=== PATIENT | male | born 1950 | race Caucasian/White ===

== ENCOUNTER → 2016-04-01 | Outpatient (CLI) | payer MEDICARE, OTHER ==
[~2016-04-01] MED LIST: ACHD5005 PO; ALBU5SOL10 IH; AMLO-320 PO; AMLO10TA82 PO; ASP81CT PO; ASPI-586 PO; BACL10TA PO; CA C1TAB26 PO; CHOL100011 PO; CHOL10003 PO; CYAN1TAB26 PO; CYAN500T44 PO; DICL75TA2 PO; FLUT16SP22 NSEACH; FLUT1DIS26 IH; FLUT1DIS27 IH; FLUT1DIS28 IH; FLUT1DIS3 IH; GABA-486 PO; HCT25T PO; HYDR-3812 PO; HYDR50TA3 PO; IPRA3AMP11 INH; LEVO200T6 PO; LEVO50TA6 PO; LEVO750T6 PO; LEVOTHY; LEVOTHYROXINE PO; LORA10TA7 PO; LVT.05T PO; LVT.1T PO; Levothyroxine PO; MELO15TA39 PO; NF-FLON16G; OMEG1CAP51 PO; OMEP20CA12 PO; OMG1KC PO; OXYC-197 PO; PEG4000S9 PO; PNT40TEC PO; PRM25T PO; QUIN20TA15 PO; QUIN20TA27 PO; RABE20TA PO; RANI150T90 PO; ROPI0.5T2 PO; RT-ALBUINH IH; TRAM50TA2 PO; levothyroxine
--- NOTE | 2016-04-02 08:39 | ECHOCARDIOGRAPHY REPORT ---
PROCEDURE PHYSICIAN: ALMA BLANKENSHIP DATE OF PROCEDURE: 04/01/2016 TWO DIMENSIONAL ECHOCARDIOGRAM REPORT PRIMARY PHYSICIAN: OTHER PHYSICIAN: REFERRING PHYSICIAN: Dr. Johanna Handy ORDERING PHYSICIAN: INDICATION FOR THE PROCEDURE: Chest pain. MEASUREMENTS DERIVED VALUES LV DIAMETER (LAX) NORMALS NORMALS Diastolic 3.8 (3.6-5.2) Eject. Fract. 60% (60%+/-6%) Systolic (2.3-3.9) Diastolic Vol. % Shortening (0.22-0.42) Systolic Vol. Aortic Root IVS THICKNESS Diastolic 0.9 (0.6-1.1) LVPW THICKNESS Diastolic 1.1 (0.6-1.1) LA DIAMETER Systolic 3.8 (2.1-3.7) FINDINGS: 1. Technically difficult study. 2. The left ventricle is normal in size, endocardium was not well visualized in all segments. Systolic function appeared to be normal. Estimated ejection fraction 60%. Cannot comment on segmental wall motion. 3. The left atrium is normal in size. No clot or thrombus were seen within the left atrium. 4. The right atrium and right ventricle are normal in size. No clot or thrombus were seen within the right side. 5. Mitral valve is normal in morphology with mild mitral regurgitation noted by color Doppler flow. No mitral valve prolapse. No mitral valve stenosis. 6. Aortic valve is trileaflet with normal opening and closing pattern. No significant aortic stenosis or regurgitation was seen. 7. Tricuspid valve is normal in morphology with mild tricuspid regurgitation noted by color Doppler flow. Doppler across the tricuspid valve estimated pulmonary artery pressure of 13+ right atrial pressure. 8. Pulmonic valve is functioning normally. 9. No pericardial effusion. IN CONCLUSION: 1. Normal left ventricular size and systolic function. Endocardium was not well visualized in all segments. Estimated ejection fraction 60%. 2. Mild mitral and tricuspid regurgitation. 3. Estimated pulmonary artery pressure of 20 mmHg. Job ID: [id number] Dictated Date: 04/01/2016 15:54:24 Heat Set Operator Date: 04/02/2016 08:35:50 / thao
== END ==
LOC: CARD 12:28
PROVIDERS: ATTEND Internal Medicine Cardiovascular Disease
DX: R07.9 Chest pain, unspecified (principal); I51.9 Heart disease, unspecified; R06.02 Shortness of breath; G47.33 Obstructive sleep apnea (adult) (pediatric)
CPT/HCPCS: 93306

== ENCOUNTER → 2016-04-13 | Outpatient (CLI) | payer MEDICARE, OTHER ==
[~2016-04-13] VITALS: Ht 180.3 cm; Wt 144.7 kg
[~2016-04-13] MED LIST changes: +CATHETER FLUSH 10 ML SYR IV PRN; +REGADENOSON 0.4 MG/5 ML SYR (LEXISCAN) IV ONE
[2016-04-13 09:14] VITALS: BP 171/93
--- NOTE | 2016-04-13 11:34 | STRESS TEST ---
PROCEDURE PHYSICIAN: ALMA BLANKENSHIP LEXISCAN MYOVIEW STRESS TEST REPORT: DATE OF PROCEDURE: 04/13/2016 REFERRING PHYSICIAN: Dr. Johanna Handy, [facility]. INDICATION: Chest pain. Baseline heart rate is 64, baseline blood pressure: 171/93. Baseline EKG: Sinus rhythm with incomplete right bundle branch block. SUMMARY: The patient was injected with 10.47 mCi of technetium 99 Myoview and the resting images were obtained. Then the patient received 0.4 mg followed by 30.1 mCi of technetium 99 Myoview. Throughout the test, there were no EKG changes. The resting and stress images were reviewed and compared in the short axis, horizontal long axis, and vertical long axis views. Review of the images showed significant extracardiac attenuation due to the body habitus and the fact that the patient was unable to lift his left arm. Overall, there is decreased uptake involving the mid to apical anterior wall, true apex and whole inferior wall with mild reversibility involving mainly the mid to apical anterior wall and anterolateral wall. SSS is 12, SDS 6. TID value 1.28. On the gated images, the left ventricle appeared to be normal size with normal contractility. Calculated ejection fraction 62%. CONCLUSION: 1. The patient tolerated Lexiscan well. 2. Diaphragmatic attenuation and extracardiac attenuation affecting the quality of the images due to the body habitus and the fact that the patient was unable to lift his left arm. 3. Questionable ischemia involving the mid to apical anterior wall, anterolateral wall. Fixed defect at the inferior wall, probably due to the extra cardiac attenuation. 4. Transient ischemic dilatation with TID value 1.28. 5. Normal left ventricular size with normal contractility. Calculated ejection fraction 62%. Job ID: [id number] Dictated Date: 04/13/2016 11:02:00 Utility Worker [place] Date: 04/13/2016 11:28:49 / elida
== END ==
LOC: CARD 07:40
PROVIDERS: ATTEND Internal Medicine Cardiovascular Disease
DX: I51.9 Heart disease, unspecified (principal); R07.9 Chest pain, unspecified; G47.33 Obstructive sleep apnea (adult) (pediatric); M19.90 Unspecified osteoarthritis, unspecified site; R06.02 Shortness of breath; M54.9 Dorsalgia, unspecified
CPT/HCPCS: 78452; 93017

== ENCOUNTER 2016-04-22 06:57 | Day surgery (SDC) | payer MEDICARE, OTHER ==
[~2016-04-22] VITALS: Ht 180.3 cm; Wt 144.7 kg
[2016-04-22] VITALS (11 sets, daily range): BP systolic 112–155; BP diastolic 56–102
[~2016-04-22 06:57] MED LIST changes: -ASPI-586 PO; -BACL10TA PO; -CATHETER FLUSH 10 ML SYR IV PRN; -CHOL10003 PO; -HYDR-3812 PO; -LEVO50TA6 PO; -MELO15TA39 PO; -OMG1KC PO; -OXYC-197 PO; -REGADENOSON 0.4 MG/5 ML SYR (LEXISCAN) IV ONE; -ROPI0.5T2 PO
[2016-04-22] MEDS ORDERED: HEParin (CATH LAB) 2,000 ML IV ONE (07:06)
[2016-04-22] MEDS ORDERED: LIDOCAINE 1% INJ 20 ML (XYLOCAINE) VIAL ONE (07:06)
[2016-04-22] MEDS ORDERED: NS IV 1000 ML 1,000 ML ONE (07:06)
[2016-04-22] MEDS ORDERED: NS IV 1000 ML 1,000 ML IV SCH ×2 (07:30→08:35)
[2016-04-22 07:36] LABS: BILIRUBIN,URINE NEGATIVE (NEGATIVE); KETONES,URINE NEGATIVE (NEGATIVE); LEUKOCYTE ESTERASE ,URINE NEGATIVE (NEGATIVE); NITRITE,URINE NEGATIVE (NEGATIVE); PH,URINE 8 (5-9); PROTEIN,URINE 2+ (NEGATIVE); UROBILINOGEN,URINE NORMAL (NORMAL)
[2016-04-22 07:36] LABS: MEAN PLATELET VOLUME 10.2 FL (7.4-10.4); RED BLOOD COUNT 4.17 10^6/uL (4.35-5.85); RED CELL DISTRIBUTION WIDTH 12.9 % (10.0-14.5)
[2016-04-22 07:45] LABS: PROTHROMBIN TIME PATIENT 13.1 SEC (12.2-14.7)
[2016-04-22] MEDS ORDERED: BACL10TA PO (07:46)
[2016-04-22] MEDS ORDERED: MELO15TA39 PO (07:46)
[2016-04-22] MEDS ORDERED: ROPI0.5T2 PO (07:46)
[2016-04-22 07:56] LABS: ALANINE AMINOTRANSFERASE 22 U/L (0-55); ALBUMIN 4.2 G/DL (3.2-4.5); ANION GAP 10 MMOL/L (5-14); ASPARTATE AMINO TRANSFERASE 21 U/L (5-34); BILIRUBIN,TOTAL 0.4 MG/DL (0.1-1.0); BLOOD UREA NITROGEN 29 MG/DL (7-18); BUN/CREATININE RATIO 28; CALCIUM 9.5 MG/DL (8.5-10.1); CARBON DIOXIDE 28 MMOL/L (21-32); CHLORIDE 103 MMOL/L (98-107); CHOLESTEROL 155 MG/DL (< 200); CREATININE SERUM 1.02 MG/DL (0.60-1.30); DIRECT LDL 93 MG/DL (1-129); GFR ESTIMATED > 60; GLUCOSE 100 MG/DL (70-105); POTASSIUM 3.9 MMOL/L (3.6-5.0); SODIUM 141 MMOL/L (135-145); TOTAL PROTEIN 7.4 G/DL (6.4-8.2); TRIGLYCERIDES 89 MG/DL (<150); VLDL CHOLESTEROL 18 MG/DL (5-40)
[2016-04-22 08:01] LABS: SQUAMOUS EPITHELIAL CELL,UR 0-2 /HPF
[2016-04-22] MEDS ORDERED: fentaNYL INJECTION 100 MCG/2 ML AMP ONE (08:02)
[2016-04-22] MEDS ORDERED: MIDAZOLAM 5 MG/5 ML (VERSED) VIAL ONE (08:02)
--- NOTE | 2016-04-22 08:13 | Cardiac Procedure Note-CS/ASA ---
Pre-Procedure Note Pre-Op Procedure Note H&P Reviewed The H&P was reviewed, patient examined and no changes noted. Date H&P Reviewed: Apr 22, 2016 Time H&P Reviewed: 08:13 Conscious Sedation Pre-Proced Time Reviewed: 08:13 ASA Class: 3 Airway Mallampati Classification: (chitimacha appropriate class) I. II. III, IV Lungs Heart ASA score ASA 1: a normal healthy patient ASA 2: a patient with a mild systemic disease (mid diabetes, controlled hypertension, obesity x ASA 3: a patient with a severe systemic disease that limits activity (angina , COPD, prior Myocardial infarction) ASA 4: a patient with an incapacitating disease that is a constant threat to life (CHF, renal failure) ASA 5: a moribund patient not expected to survive 24 hrs. (ruptured aneurysm) ASA 6: a declared brain patient whose organs are being harvested. For emergent operations, add the letter E after the classification Grade 3 Sedation Plan: Analgesia, Amnesia, Plan communicated to team members, Discussed options with patient/fam, Discussed risks with patient/fam Note The patient is an appropriate candidate to undergo the planned procedure, sedation, and anesthesia. The patient immediately re-assessed prior to indication. ALMA BLANKENSHIP MD Apr 22, 2016 08:13
--- NOTE | 2016-04-22 08:16 | Diagnostic Imaging Report ---
Portable upright radiograph of the chest. INDICATION: Hypertension. Abnormal stress test. Shortness of breath. FINDINGS: There is overall underpenetration on this exam. Minimal opacity in the left lung base is probably related to atelectasis. The heart size is at the upper limits of normal. No effusion or pneumothorax. The mediastinum and nidhi appear unremarkable. IMPRESSION: Suggestion of minimal left basilar atelectasis. Underpenetrated radiograph. Dictated by: Dictated on workstation # [id number]
--- NOTE | 2016-04-22 08:38 | Discharge Inst-Post CATH ---
Discharge Inst-CATH Post Cardiac Cath D/C Inst Follow Up/Plan Appointment with Dr Mccollum's office in 2-4 weeks CARDIAC CATH DISCHARGE INSTRUCTIONS *Hold Metformin for 48 hours post heart cath. ACTIVITY * Go Home directly and rest. * Limit activity of the leg (or wrist if it was used) for 7 days including aerobics, swimming, jogging, bicycling, etc. * Restrict stair-climbing for 7 days if possible, if not, climb up with your non -cath leg, then bring together on the same step. * Avoid lifting, pushing, pulling or excessive movement of the affected extremity for 7 days. * Customary sexual activity may be resumed after 2 days-use caution not to use a position that strains or causes pain to the affected extremity. * No driving for 24 hours. * NO SMOKING. * Avoid straining for bowel movements for 7 days. * Gentle walking on level ground is allowed. * Returning to work will depend on the type of procedure and the results. Your doctor will discuss this with you. CALL YOUR DOCTOR FOR ANY OF THE FOLLOWING: *If bleeding from the puncture site occurs- Apply gentle pressure to site with clean cloth and call your doctor or EMS. * If a knot or lump forms under the skin, increases in size, or causes pain. * If bruising appears to be worsening or moving further down your leg instead of disappearing. * Temperature above 101 F. CARE OF YOUR GROIN INCISION; * Bruising or purple discoloration of the skin near the puncture site is common. * You may shower only, no bathtub bathing for 5 days. Be careful to avoid slipping as your leg may feel stiff. * If a closure device was used on your femoral artery, please see the attached guide regarding care of the device and your leg. * REMOVE the dressing from your groin the next day after your procedure in the shower. CARE OF YOUR WRIST INCISION; * Bruising or purple discoloration of the skin near the puncture site is common. * You may shower. * DO NOT submerge wrist. * Remove dressing in 24 hours. ALMA MCCOLLUM MD Apr 22, 2016 08:38
[2016-04-22] MEDS ORDERED: PATIENT MAY USE OWN MEDS, ALL PO SCH (08:45)
[2016-04-22] MEDS ORDERED: oxyCODONE/APAP 5/325MG (PERCOCET 5) TABLET PO ONE (09:45)
--- NOTE | 2016-04-22 14:52 | DISCHARGE SUMMARY ---
PROCEDURE PHYSICIAN: ALMA BLANKENSHIP DATE OF PROCEDURE: 04/22/2016 REFERRING PHYSICIAN: Dr. Johanna Handy, [facility] Brief history: Mr. Desir is a 65-year-old gentleman with a history of hypertension, hyperlipidemia. He had an abnormal stress test, scheduled for left heart catheterization. PROCEDURE NOTE: After explaining the procedure to the patient, all pros and cons were explained. All questions were answered. The patient signed a consent, then he was placed on the cardiac catheterization laboratory. The right groin was prepped in a sterile fashion. Local anesthesia applied to the right groin. 6-Guamanian sheath was placed in the right femoral artery. Combination of right and left Nichole catheter were used to access the right and left coronary system. Multiple views were obtained. Nichole right catheter was prolapsed into the left ventricular cavity. Pressure was measured. Pullback LV to aorta was done. At the end of the procedure, sheath was removed. Mynx device deployed. Hemostasis achieved. FINDINGS: HEMODYNAMICS: LV pressure 130/13, end-diastolic pressure of 13, aortic pressure 135/72, mean of 78. No significant gradient across the aortic valve. ANATOMY: 1. Left main coronary artery is bifurcating to left anterior descending and left circumflex artery with no obstructive disease. 2. The left anterior descending artery is moderate in size. 40 to 50% stenosis in the proximal LAD, nonobstructive disease. 3. Left circumflex artery has mild ectasia with no obstructive disease. 4. Right coronary artery has mild ectasia, small vessel disease, no obstructive disease. 5. No left ventriculogram was done. CONCLUSION: 1. 40 to 50% proximal LAD stenosis with mild ectasia in the circumflex and right coronary artery, nonobstructive disease, small vessel disease. 2. Normal left ventricular end diastolic pressure. DISCUSSION AND RECOMMENDATION: Mr. Desir' abnormal stress test is probably due to extracardiac attenuation medical therapy is recommended. No intervention is needed. FINAL DIAGNOSIS: 1. Chest pain, nonspecific etiology. 2. Coronary artery disease. 3. Hypertension. 4. Hyperlipidemia Job ID: [id number] Dictated Date: 04/22/2016 08:41:54 Plant Security Guard Date: 04/22/2016 14:50:46/elida
[2016-06-10] MEDS ORDERED: OXYC-197 PO ×2 (07:31→10:11)
== END 2016-04-22 13:20 | disposition home or self-care (01) ==
LOC: CATH 06:57 → SURG 08:58 → CATH 13:20
PROVIDERS: ATTEND Internal Medicine Cardiovascular Disease
DX: R94.39 Abnormal result of other cardiovascular function study (principal); R07.89 Other chest pain; I25.10 Atherosclerotic heart disease of native coronary artery without angina pectoris; I10 Essential (primary) hypertension; E78.5 Hyperlipidemia, unspecified; G47.33 Obstructive sleep apnea (adult) (pediatric); J45.909 Unspecified asthma, uncomplicated; Z87.891 Personal history of nicotine dependence; Z79.899 Other long term (current) drug therapy
CPT/HCPCS: 36415; 71010; 80053; 80061; 81000; 85027; 85610; 85730; 87081; 93005; 93458

== ENCOUNTER → 2016-04-28 | Outpatient (CLI) | payer MEDICARE, OTHER ==
[~2016-04-28] MED LIST changes: +ASPI-586 PO; +BACL10TA PO; +CHOL10003 PO; +HYDR-3812 PO; +LEVO50TA6 PO; +MELO15TA39 PO; +OMG1KC PO; +OXYC-197 PO; +ROPI0.5T2 PO
--- NOTE | 2016-04-28 16:25 | Diagnostic Imaging Report ---
PROCEDURE: MRI left upper extremity without contrast. TECHNIQUE: Multiplanar, multisequence non contrast-enhanced MRI of the left upper extremity was accomplished. INDICATION: Left shoulder pain. FINDINGS: Please note that due to the large patient body habitus, the dedicated shoulder coil was not fitting and alternate larger coil was used which would decrease in the resolution of this exam. There is no os acromiale or Hill-Sachs deformity. There is acromioclavicular joint hypertrophy with inferior osteophyte seen that has an impression upon the myotendinous junction of the supraspinatus. The rotator cuff is not well seen with suggestion of bursal-sided partial tear, and there is suggestion of high-grade tear along the insertion of the infraspinatus. There is fluid minimally distending the subacromial-subdeltoid bursa. The labrum is not well seen. The long head biceps tendon is not well seen with details to evaluate the tendon signal itself. The tendon, however, appears to be within the groove. The subscapularis tendon appears grossly unremarkable. The glenohumeral joint demonstrates a small effusion. There is mild distention of the subcoracoid bursa. The muscle bulk around the shoulder is normal. IMPRESSION: 1. Limited study with decreased resolution of imaging due to large patient body habitus. 2. Suggestion of partial tears in the supraspinatus and infraspinatus tendons with associated small amount of fluid in the subacromial-subdeltoid bursa. No definitive full-thickness retracted tear. 3. AC joint osteoarthritis with prominent inferior osteophytes. 4. Mild subcoracoid bursitis. Dictated by: Dictated on workstation # [id number]
== END ==
LOC: RAD 15:14
PROVIDERS: ATTEND Nurse Practitioner Family
DX: M19.012 Primary osteoarthritis, left shoulder (principal); M75.52 Bursitis of left shoulder
CPT/HCPCS: 73221

== ENCOUNTER 2016-05-21 10:10 | Outpatient (CLI) | payer MEDICARE ==
[~2016-05-21] VITALS: Ht 180.3 cm; Wt 143.1 kg
[~2016-05-21 10:10] MED LIST changes: -ASPI-586 PO; -CHOL10003 PO; -HYDR-3812 PO; -LEVO50TA6 PO; -OMG1KC PO; -OXYC-197 PO
[2016-05-21 10:17] VITALS: BP 148/87
[2016-05-21] MEDS ORDERED: ASPI-586 PO (10:26)
[2016-05-21] MEDS ORDERED: OMG1KC PO (10:26)
[2016-05-21] MEDS ORDERED: LEVO50TA6 PO (10:26)
[2016-05-21] MEDS ORDERED: HYDR-3812 PO (10:26)
[2016-05-21] MEDS ORDERED: CHOL10003 PO (10:26)
[2016-06-10] MEDS ORDERED: OXYC-197 PO ×2 (07:31→10:11)
== END 2016-05-21 10:30 | disposition home or self-care (01) ==
LOC: PREOP 10:10
PROVIDERS: ATTEND Orthopaedic Surgery
DX: Z01.818 Encounter for other preprocedural examination (principal); Z11.2 Encounter for screening for other bacterial diseases; M75.102 Unspecified rotator cuff tear or rupture of left shoulder, not specified as traumatic
CPT/HCPCS: 87081

== ENCOUNTER 2016-06-10 06:03 | Day surgery (SDC) | payer MEDICARE ==
--- NOTE | 2016-06-02 13:49 | HISTORY AND PHYSICAL ---
DICTATING PHYSICIAN: Dr. Ruth DATE OF ADMISSION: 06/10/2016 Outpatient surgery for left shoulder arthroscopy with rotator cuff repair. HISTORY: The patient is a 65-year-old, [id number] gentleman with complaints of progressively worsening left shoulder plain. He underwent an MRI which reveals full thickness infraspinatus tear. He reports progressively worsening pain. He reports pain with overhead activities. He denies paresthesias. He denies any specific injuries but reports that his pain has been progressive. He reports pain when he lifts above his shoulder level. Due to functional impairment, the patient has elected to proceed with surgical intervention. REVIEW OF SYSTEMS: No chest pain, no shortness of breath. No dysuria. PAST MEDICAL HISTORY: 1. Sleep apnea. 2. Hypertension. 3. Reflux. 4. Asthma. 5. Osteoarthritis. 6. Peptic ulcer disease. 7. Hiatal hernia. 8. Prediabetes. 9. Fatty liver. 10. Neuropathy. 11. Back pain. 12. RLS. 13. Hypothyroidism. PAST SURGICAL HISTORY: 1. Cholecystectomy. 2. Right knee arthroscopy. FAMILY HISTORY: Significant for cardiovascular disease, hypertension and diabetes. PRIMARY CARE PROVIDER: [facility]. MEDICATIONS: 1. Diclofenac. 2. Norvasc. 3. Levothyroxine. 4. Hydrochlorothiazide. 5. Omeprazole. 6. Quinapril. 7. Advair. 8. Fluticasone 9. Gabapentin. 10. Fish oil. 11. Vitamin D3. 12. Aspirin. 13. Ventolin. 14. MiraLAX. 15. Metoclopramide. 16. Requip. ALLERGIES: No known drug allergies. SOCIAL HISTORY: The patient is a former smoker. He drinks alcohol socially. PHYSICAL EXAMINATION: The patient is well-developed, well-nourished, in no acute distress. HEENT: Normocephalic, atraumatic. Pupils are equal, round, and reactive to light, oropharynx is clear. NECK: Supple. No lymphadenopathy. LUNGS: Clear to auscultation bilaterally. HEART: Regular rate and rhythm. ABDOMEN: Soft, nontender, nondistended. EXTREMITY EXAM: The left shoulder demonstrates no atrophy. No skin lesions are noted. He has negative Spurling's maneuver. Sensation is intact throughout his left upper extremity. He has a positive Neer sign, positive Pradhan sign. He has pain and weakness with resisted abduction and external rotation. He has a negative drop arm. Active forward elevation of 170 degrees, external rotation is 80 degrees and internal rotation 70 degrees. IMPRESSION: Left shoulder rotator cuff tear. PLAN: Left shoulder arthroscopy with rotator cuff repair. The risks, benefits, options, ramifications and recovery have been discussed at length with the patient and he understands and wishes to proceed. Job ID: [id number] Dictated Date: 05/19/2016 09:59:00 Last Sawyer Date: 05/19/2016 11:09:25/kjs <Dictated by TAE RUTH MD> 05/19/16 [id number] <Electronically signed by TAE RUTH MD> 05/26/16 [id number]
[~2016-06-10] VITALS: Ht 180.3 cm; Wt 143.1 kg
[~2016-06-10 06:03] MED LIST changes: +ASPI-586 PO; +CHOL10003 PO; +HYDR-3812 PO; +LEVO50TA6 PO; +OMG1KC PO
[2016-06-10] MEDS ORDERED: NS (IVPB) 50 ML ONE (06:33)
[2016-06-10] MEDS ORDERED: ceFAZolin 1,000 MG (ANCEF) VIAL ONE (06:33)
[2016-06-10 06:46] VITALS: BP 197/113
[2016-06-10] MEDS ORDERED: SEVOFLURANE (ULTANE) 15 ML INHAL SOLN ONE ×5 (06:48→08:31)
[2016-06-10] MEDS ORDERED: ATRACURIUM 50 MG/5 ML (TRACRIUM) IV ONE (06:48)
[2016-06-10] MEDS ORDERED: LIDOCAINE PF 2% 10 ML (XYLOCAINE) AMP ONE (06:48)
[2016-06-10] MEDS ORDERED: DEXAMETHASONE PF 10 MG/ML (DECADRON) VIAL ONE (06:48)
[2016-06-10] MEDS ORDERED: MIDAZOLAM 2 MG/2 ML (VERSED) VIAL ONE (06:48)
[2016-06-10] MEDS ORDERED: proPOfol 200 MG/20 ML (DIPRIVAN) VIAL IV ONE (06:48)
[2016-06-10] MEDS ORDERED: fentaNYL INJECTION 100 MCG/2 ML AMP ONE (06:48)
[2016-06-10] MEDS ORDERED: HURRICAINE EXT TUBE (BENZOCAINE) ONE (06:48)
[2016-06-10] MEDS ORDERED: ROPIVACAINE 5MG/ML 30ML VIAL ONE (06:49)
[2016-06-10] MEDS ORDERED: FAMOTIDINE 20MG/2ML IV (PEPCID) ONE (06:52)
[2016-06-10] MEDS ORDERED: morphine PF (DURAMORPH) 10 MG/10 ML AMP ONE (06:56)
[2016-06-10] MEDS ORDERED: BUPIVACAINE 0.25% 30 ML (SENSORCAINE) VIAL ONE (06:56)
[2016-06-10] MEDS ORDERED: ceFAZolin 1 GM/NS 50 ML IVPB IV ONE ×2 (07:00)
[2016-06-10] MEDS ORDERED: CATHETER FLUSH 10 ML SYR IV PRN (07:00)
[2016-06-10] MEDS: LACTATED RINGERS 1,000 ML IV PRN ×2 (07:00→08:44)
[2016-06-10] MEDS ORDERED: FAMOTIDINE 20MG/2ML IV (PEPCID) IV ONE (07:00)
[2016-06-10] MEDS ORDERED: GLYCOPYRROLATE 0.2 MG/ML (ROBINUL) 2 ML VIAL IV ONE (07:00)
[2016-06-10] MEDS ORDERED: RT-ALBUTEROL SULF 2.5 MG/3 ML PRE-MIX VIAL INH ONE (07:00)
--- NOTE | 2016-06-10 07:26 | Progress Note-Post Operative ---
Post-Operative Progess Note [place] none Pre-Operative Diagnosis left rotator cuff and SLAP tears Post-Operative Diagnosis left rotator cuff tear left shoulder labrla tear left humeral head chondromalacia Post-Op Procedure Note Date of Procedure: Jun 10, 2016 Name of Procedure: left shoulder arthroscopic labral debridement, humeral head chondroplasty, acromioplasty and open rotator cuff repair Anesthesia Type GETA plus interscalene Estimated blood loss (mL): minimal Packing: none Specimen(s) collected none TAE RUTH MD Jun 10, 2016 07:26
--- NOTE | 2016-06-10 07:26 | Progress Note-Pre Operative ---
Pre-Operative Progress Note H&P Reviewed The H&P was reviewed, patient examined and no changes noted. Date H&P Reviewed: Jun 10, 2016 Time H&P Reviewed: 07:11 Pre-Operative Diagnosis: left rotator cuff and SLAP tears TAE RUTH MD Jun 10, 2016 07:25
[2016-06-10] MEDS ORDERED: oxyCODONE/APAP 5/325MG (PERCOCET 5) TABLET PO PRN (07:30)
[2016-06-10] MEDS ORDERED: OXYC-197 PO ×2 (07:31→10:11)
[2016-06-10] MEDS ORDERED: morphine INJ 10 MG/ML 1ML (SYR OR VIAL) IV PRN (09:00)
[2016-06-10] MEDS ORDERED: fentaNYL INJECTION 100 MCG/2 ML AMP IV PRN (09:00)
[2016-06-10] MEDS ORDERED: ONDANSETRON 4 MG/2 ML (SDV) Z0FRAN IV PRN (09:00)
[2016-06-10] MEDS ORDERED: PROMETHAZINE INJ 25 MG/ML (PHENERGAN) AMP IV PRN (09:00)
[2016-06-10] MEDS ORDERED: MEPERIDINE (DEMEROL) INJ 50 MG/ML IV PRN (09:00)
[2016-06-10] MEDS ORDERED: morphine INJ 10 MG/ML 1ML (SYR OR VIAL) ONE (09:12)
[2016-06-10 09:45] VITALS: BP 173/98
[2016-06-10 10:15] VITALS: BP 169/106
--- NOTE | 2016-06-10 10:27 | OPERATIVE REPORT ---
PROCEDURE PHYSICIAN: TAE RUTH DATE OF PROCEDURE: 06/10/2016 PREOPERATIVE DIAGNOSIS: 1. Left shoulder SLAP tear. 2. Left shoulder rotator cuff tear. POSTOPERATIVE DIAGNOSIS: 1. Left shoulder labral tear. 2. 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 3. Left rotator cuff tear. PROCEDURE: 1. Left shoulder arthroscopic labral debridement. 2. Left shoulder arthroscopic chondroplasty of the humeral head. 3. Left shoulder arthroscopic acromioplasty. 4. Left shoulder open rotator cuff repair. SURGEON: Melisa ANESTHESIA: General endotracheal plus interscalene nerve block by Dr. Au ESTIMATED BLOOD LOSS: Minimal. DRAINS: None. COMPLICATIONS: None. POSTOPERATIVE PLAN: Passive range of motion and sling wear for 4 weeks. The patient was transported to the recovery room, awake, in stable condition. STATEMENT OF MEDICAL NECESSITY: The patient is a 65-year-old gentleman with the complaints of left shoulder pain and weakness. He had a positive Neer and positive Pradhan sign, weakness with abduction and external rotation. He underwent an MRI which shows a massive rotator cuff tear with atrophy noted. The patient was counseled that this may be an irreparable tear, but due to functional impairment, the patient elected to proceed with surgical intervention. Examination under anesthesia revealed forward elevation of 170 degrees, external rotation 90 degrees and internal rotation 80 degrees. Arthroscopic findings demonstrated a flap tear of the anterior labrum from the 8 to 10 o'clock position. The humeral head demonstrated grade 2 chondral flap superiorly in a 10 x 10 area. There was a full thickness supraspinatus tear extending into the infraspinatus and subscapularis with retraction to the glenoid. Subacromial space demonstrated moderate bursitis with sloping of anterolateral acromion. PROCEDURE: After risks and benefits of procedure were discussed and questions were answered an informed consent was signed and placed on chart. The operative site was confirmed in the preoperative holding area and initialed by the surgeon. The patient was then transported to the operating room. After adequate levels of general endotracheal anesthetic were obtained, a timeout was called confirming the operative site. Examination under anesthesia was performed with the above findings noted. The left shoulder and upper extremity were prepped and draped in the usual sterile fashion. The shoulder joint was injected with 20 mL of fluid and a standard posterior portal was placed under direct visualization. Anterior middle portal was created in the interval between the glenoid and humeral head. The biceps anchor was absent. The labral flap was debrided with a shaver, back to a stable edge. The humeral head was debrided with a shaver, back to a stable edge. The scope was then redirected in the subacromial space and lateral portal was created. Bursectomy was performed and acromion was planed to a flat type I acromion. The lateral portal was then extended. The deltoid was split in line with its fibers. The deltoid was left attached to the acromion. The posterior aspect of the rotator cuff could be mobilized superiorly but the midportion and anterior portion could not be mobilized. A single corkscrew anchor was placed and a modified Sohail-Thai repair was obtained. This brought the posterior leaf superiorly. The wound was copiously irrigated. The deltoid was repaired in [id number] fashion using number 2 FiberWire in a [id number] interrupted fashion. The wound was further irrigated. 2-0 Vicryl was used to reapproximate subcutaneous tissue. The portal sites closed with 4-0 nylon in subcuticular fashion. The incision was closed with 4-0 nylon in running, alternating horizontal mattress fashion. The shoulder joint was injected with Duramorph. Portal sites were infiltrated with plain Marcaine. A soft dressing and sling were applied and the patient was transported to recovery room, awake, in stable condition. Job ID: [id number] Dictated Date: 06/10/2016 08:55:15 Engineered Wood Designer Date: 06/10/2016 10:17:32 / elida
[2016-06-10 10:45] VITALS: BP 169/106
--- NOTE | 2016-06-10 11:47 | Anesthesia-Peripheral Nerve Bl ---
Procedure Start/Stop Time Date of Procedure: Jun 10, 2016 Start Time: 07:00 Preprocedural Diagnosis: torn rotator cuff Stop Time: 07:15 Postprocedural Diagnosis: same Peripheral Nerve Block Peripheral Nerve Blockade Risk/Benefits/Alternatives discussed, including IV injection leading to complications or seizures, nerve irritation or damage, pneumothorax, total spinal anesthesia, injection, and/or bleeding. Side Confirmed: LEFT Indication: Surgical Anesthesia Specifically requested for management of pain by: Patient Condition Vital Signs Vital Signs Date Time Temp Pulse Resp B/P (MAP) Pulse Ox O2 Delivery O2 Flow Rate FiO2 06/10/16 11:20 06/10/16 10:45 97.1 70 16 92 Room Air 06/10/16 07:19 2.00 Pain Intensity: 6 Patient Condition: Awake Procedure Prepartation: Chlorhexidine Position: Supine Needle (s) Size: 22g 2" Technique: Nerve Stimulation Motor response or parethesia o: good deltoid and biceps response mA: .5 Depth (cm): 2 Sedation Given: Midazolam Dose (mg/mcg): 2 Injectate: ropivacaine Concentration %: 0.5 Volume (ml): 30 Epinephrine used: No Narrative Injection was made incrementally with constant monitoring. Blood Aspirated: No Pain on injection noted: No Normal Resistance on injection: Yes Events Events: None:easy well tolerated Sucess: Complete Patient Conditon Post Peripheral Nerve Block Post Peripheral Nerve Block Vital Signs: Blood Pressure: Systolic Diastolic Heart Rate Blood Pressure Systolic: 169 Blood Pressure Diastolic: 106 Pulse Rate (adult): 70 BELTRAN CORBETT CRNA Jun 10, 2016 11:47
--- OUTSIDE RECORDS SUMMARY | 2016-06-14 04:18 | XMS REPORT ---
Author Author TAMMY COPELAND Organization e[employer] Address Unknown Phone Unavailable Care Team Providers Care Spragger Name Role Phone TAMMY COPELAND CP Unavailable Allergies No Known Allergies Problems Problem Type Condition ICD-9 Code Onset Dates Condition Status Problem Diarrhea 787.91 Active Problem Nausea alone 787.02 Active Problem Unspecified hereditary and idiopathic peripheral neuropathy 356.9 Active Problem Abdominal pain, right upper quadrant 789.01 Active Problem Pain in joint, lower leg 719.46 Active Problem Pain in joint, pelvic region and thigh 719.45 Active Problem Benign neoplasm of skin, site unspecified 216.9 Active Problem Dysmetabolic Syndrome X 277.7 Active Problem Other enthesopathy of ankle and tarsus 726.79 Active Problem Unspecified myalgia and myositis 729.1 Active Problem Sacroiliitis, not elsewhere classified 720.2 Active Problem Acute mucoid otitis media 381.02 Active Problem Sciatica 724.3 Active Problem Unspecified gastritis and gastroduodenitis without mention of hemorrhage 535.50 Active Problem Cellulitis and abscess of unspecified site 682.9 Active Problem Lumbago 724.2 Active Problem Hypertension 401.9 Active Problem Edema 782.3 Active Problem Encounter for long-term (current) use of other medications V58.69 Active Problem Pain in joint, hand 719.44 Active Problem Bilateral leg pain 729.5 Active Problem Acute upper respiratory infections of unspecified site 465.9 Active Problem Heartburn 787.1 Active Problem Other specified headache syndromes 339.89 Active Problem Flatulence, eructation, and gas pain 787.3 Active Problem Abdominal pain, epigastric 789.06 Active Problem Acute bronchitis 466.0 Active Problem PPV23 (PNEUMOVAX) DX V03.82 Active Problem Obstructive sleep apnea (adult) (pediatric) 327.23 Active Problem Chronic airway obstruction, not elsewhere classified 496 Active Problem Special screening for malignant neoplasms, colon V76.51 Active Problem Unspecified constipation 564.00 Active Problem Dizziness and giddiness 780.4 Active Problem Need for prophylactic vaccination and inoculation, Influenza V04.81 Active Problem Other chronic nonalcoholic liver disease 571.8 Active Problem Unspecified orchitis and epididymitis 604.90 Active Problem Pain in joint, forearm 719.43 Active Problem Acute sinusitis, unspecified 461.9 Active Problem Personal history of other allergy, other than to medicinal agents V15.09 Active Medications Medication Code System Code Instructions Start Date End Date Status Dosage Levothyroxine Sodium [facility] [address]-65 200 MCG Orally Once a day 1 tablet Results No Known Results Summary Purpose eClinicalWorks Submission
--- OUTSIDE RECORDS SUMMARY | 2016-06-14 04:18 | XMS REPORT ---
Author Author TAMMY COPELAND Organization [employer] Address Unknown Phone Unavailable Care Team Providers Care Ultrasonic Tester Name Role Phone TAMMY COPELAND CP Unavailable Allergies No Known Allergies Problems Problem Type Condition Code Onset Dates Condition Status Problem IRVIN (obstructive sleep apnea) G47.33 Active Assessment Colon polyps K63.5 Active Problem Other specified hypothyroidism E03.8 Active Problem Restless legs syndrome G25.81 Active Problem GERD with esophagitis K21.0 Active Problem Asthma J45.909 Active Problem Rupture of tendon of right shoulder S46.911A Active Problem Asthma with acute exacerbation J45.901 Active Problem Bronchitis J40 Active Medications No Known Medications Procedures Procedure Coding System Code Date LAB NOT BILLED BY [facility] CPT-4 NOBLL Feb 12, 2016 Results Name Result Date Reference Range Unit Abnormality Flag CULTURE, STOOL ----Salmonella/Shigella Screen Final report [id number] ----Campylobacter Culture Final report [id number] ----E coli Shiga Toxin EIA Negative [id number] Negative STOOL (C-DIFF) ----C difficile Toxin Gene ALESHA Negative [id number] Negative Summary Purpose eClinicalWorks Submission
--- OUTSIDE RECORDS SUMMARY | 2016-06-14 04:19 | XMS REPORT ---
Author Author HERBER STORM Organization [employer] Address Unknown Phone Unavailable Care Team Providers Care Sorting Grapple Operator Name Role Phone HERBER STORM CP Unavailable Allergies, Adverse Reactions, Alerts Substance Reaction Event Type N.K.D.A. Info Not Available Non Drug Allergy Problems Problem Type Condition Code Onset Dates Condition Status Problem Unspecified hereditary and idiopathic peripheral neuropathy 356.9 Active Problem Abdominal pain, right upper quadrant 789.01 Active Problem Pain in joint, pelvic region and thigh 719.45 Active Problem Pain in joint, lower leg 719.46 Active Problem Benign neoplasm of skin, site unspecified 216.9 Active Problem Dysmetabolic Syndrome X 277.7 Active Problem Other enthesopathy of ankle and tarsus 726.79 Active Problem Sacroiliitis, not elsewhere classified 720.2 Active Problem Sciatica 724.3 Active Problem Unspecified gastritis and gastroduodenitis without mention of hemorrhage 535.50 Active Problem Acute upper respiratory infections of unspecified site 465.9 Active Problem Lumbago 724.2 Active Problem Pain in joint, hand 719.44 Active Problem Cellulitis and abscess of unspecified site 682.9 Active Problem Heartburn 787.1 Active Problem Other specified headache syndromes 339.89 Active Problem Rupture of tendon of right shoulder S46.911A Active Problem Bilateral leg pain 729.5 Active Problem Need for prophylactic vaccination and inoculation, Influenza V04.81 Active Problem Unspecified constipation 564.00 Active Problem Unspecified orchitis and epididymitis 604.90 Active Problem Asthma J45.909 Active Problem Encounter for long-term (current) use of other medications V58.69 Active Assessment Upper respiratory symptom R09.89 Active Problem Flatulence, eructation, and gas pain 787.3 Active Problem Abdominal pain, epigastric 789.06 Active Problem Hypertension 401.9 Active Problem Edema 782.3 Active Problem Nausea alone 787.02 Active Problem Acute sinusitis, unspecified 461.9 Active Problem Diarrhea 787.91 Active Problem Personal history of other allergy, other than to medicinal agents V15.09 Active Problem Acute bronchitis 466.0 Active Problem PPV23 (PNEUMOVAX) DX V03.82 Active Problem Obstructive sleep apnea (adult) (pediatric) 327.23 Active Problem Chronic airway obstruction, not elsewhere classified 496 Active Problem Special screening for malignant neoplasms, colon V76.51 Active Problem Unspecified myalgia and myositis 729.1 Active Problem Dizziness and giddiness 780.4 Active Problem Acute mucoid otitis media 381.02 Active Problem Other chronic nonalcoholic liver disease 571.8 Active Problem Pain in joint, forearm 719.43 Active Medications Medication Code System Code Instructions Start Date End Date Status Dosage Omeprazole [facility] 06977600717 20 MG TAKE ONE CAPSULE BY MOUTH TWICE DAILY Requip [facility] [address]-48 0.5 MG Orally Once a day Feb 26, 2015 1/2 tab x 2 days then 1 tablet 1 to 3 hours before bedtime Ventolin HFA [facility] [address]-70 90 mcg/actuation Feb 27, 2014 2 puffs by Inhalation route 4 times per day PRN keep on file don't fill today Fluticasone Propionate [facility] 76249355569 50 MCG/ACT USE ONE SPRAY IN EACH NOSTRIL TWICE DAILY Diclofenac Sodium [facility] 72303886448 75 MG TAKE ONE TABLET BY MOUTH TWICE DAILY NEEDED Aspirin [facility] [address]-53 81 mg Feb 27, 2014 1 tablet by Oral route 1 time per day ProAir HFA [facility] [address]-36 108 (90 Base) MCG/ACT Inhalation every 4 hrs prn Feb 26, 2015 2 puffs as needed MiraLax [facility] [address]-98 17 gram/dose Dec 26, 2013 take 17 g mixed with 8 oz. water or juice by Oral route 1 time per day Vitamin D3 [facility] 34217-90420 1,000 unit Jan 15, 2012 2 capsule by Oral route 1 time per day Fish Oil [facility] [address]-93 1000 MG Orally Twice a day 1 capsule Gabapentin [facility] [address]-36 300 MG TAKE ONE CAPSULE BY MOUTH DAILY AT NIGHT Hydrochlorothiazide [facility] 12868250602 50 MG TAKE ONE TABLET BY MOUTH DAILY Advair Diskus [facility] [address]-82 250-50 MCG/DOSE Inhalation Twice a day Jan 30, 2014 1 puffs by Inhalation route 2 times per day Levothyroxine Sodium [facility] 41791193883 200 MCG TAKE ONE TABLET BY MOUTH DAILY Norvasc [facility] 68405192554 10 MG TAKE ONE TABLET BY MOUTH DAILY Quinapril HCl [facility] 84741542967 20 MG TAKE THREE TABLETS BY MOUTH DAILY Procedures Procedure Coding System Code Date [facility] VISIT ESTABLISHED PATIENT CPT-4 G0467 Mar 11, 2015 Office Visit, Est Pt., Level 3 CPT-4 39020 Mar 11, 2015 MEASURE BLOOD OXYGEN LEVEL CPT-4 59686 Mar 11, 2015 Vital Signs Date/Time: Mar 11, 2015 Temperature 98.6 F Weight 315.2 lbs Height 70 in Oximetry 96 % Blood Pressure Diastolic 90 mmHg Blood Pressure Systolic 148 mmHg Cardiac Monitoring Heart Rate 77 bpm BMI 45.22 Index Results No Known Results Summary Purpose eClinicalWorks Submission
--- OUTSIDE RECORDS SUMMARY | 2016-06-14 04:19 | XMS REPORT ---
Author Author TAMMY COPELAND [facility] Address [address] [place] [address] Care Team Providers Care Refrigerator Repair Technician Name Role Phone ATMMY COPELAND Unavailable PROBLEMS Type Condition ICD9-CM Code QJO07-UP Code Onset Dates Condition Status SNOMED Code Problem IRVIN (obstructive sleep apnea) G47.33 Active 92823733 Problem Other specified hypothyroidism E03.8 Active 503154738 Problem Restless legs syndrome G25.81 Active 646993910 Problem Asthma J45.909 Active 787126224 Problem Rupture of tendon of right shoulder S46.911A Active 994306209 Problem Asthma with acute exacerbation J45.901 Active 276541899 Problem Bronchitis J40 Active 71524692 ALLERGIES No Known Allergies SOCIAL HISTORY No smoking Hx information available PLAN OF CARE VITAL SIGNS MEDICATIONS Medication Instructions Dosage Frequency Start Date End Date Duration Status Gabapentin 300 MG TAKE ONE CAPSULE BY MOUTH DAILY AT NIGHT 30 Active RESULTS No Results PROCEDURES No Known procedures IMMUNIZATIONS No Known Immunizations
--- OUTSIDE RECORDS SUMMARY | 2016-06-14 04:19 | XMS REPORT ---
Author HERBER Bailey Organization eClinicalWorks Address Unknown Phone Unavailable Care Team Providers Care Repair Specialist Name Role Phone HERBER STORM CP Unavailable Allergies, Adverse Reactions, Alerts Substance Reaction Event Type Celebrex nausea Drug Allergy Problems Problem Type Condition Code Onset Dates Condition Status Problem IRVIN (obstructive sleep apnea) G47.33 Active Assessment GERD with esophagitis K21.0 Active Problem Other specified hypothyroidism E03.8 Active Problem Restless legs syndrome G25.81 Active Problem GERD with esophagitis K21.0 Active Problem Asthma J45.909 Active Problem Rupture of tendon of right shoulder S46.911A Active Problem Asthma with acute exacerbation J45.901 Active Problem Bronchitis J40 Active Medications Medication Code System Code Instructions Start Date End Date Status Dosage Norvasc [facility] 25835182735 10 MG TAKE ONE TABLET BY MOUTH DAILY Baclofen [facility] 17714296532 10 MG Orally Three times a day prn 1 tablet with food or milk Fish Oil [facility] [address]-84 1000 MG Orally Twice a day 1 capsule Aspirin [facility] [address]-83 81 mg Feb 27, 2014 1 tablet by Oral route 1 time per day Fluticasone Propionate [facility] 43231887653 50 MCG/ACT USE ONE SPRAY IN EACH NOSTRIL TWICE DAILY MiraLax [facility] [address]-89 17 gram/dose Dec 26, 2013 take 17 g mixed with 8 oz. water or juice by Oral route 1 time per day Carafate [facility] [address]-58 1 GM/10ML Orally Twice a day Dec 30, 2015 Jan 29, 2016 10 ml ProAir HFA [facility] [address]-75 108 (90 Base) MCG/ACT Inhalation every 4 hrs prn 2 puffs as needed Requip [facility] 06553690583 0.5 MG Orally Once a day 1/2 tab x 2 days then 1 tablet 1 to 3 hours before bedtime Gabapentin [facility] 65763127800 300 MG TAKE ONE CAPSULE BY MOUTH DAILY AT NIGHT Hydrochlorothiazide [facility] 69261075341 50 MG TAKE ONE TABLET BY MOUTH DAILY Quinapril HCl [facility] 46847787157 20 MG TAKE THREE TABLETS BY MOUTH DAILY Pantoprazole Sodium [facility] [address]-12 20 mg Orally 2 times a day Dec 30, 2015 1 tablet Levothyroxine Sodium [facility] [address]-95 200 MCG TAKE ONE TABLET BY MOUTH DAILY Vitamin D3 [facility] 32668-[address]27 1,000 unit Jan 15, 2012 2 capsule by Oral route 1 time per day Meloxicam [facility] [address]-11 15 MG Orally Once a day Dec 12, 2015 Mar 11, 2016 1 tablet Procedures Procedure Coding System Code Date [facility] VISIT ESTABLISHED PATIENT CPT-4 G0467 Dec 30, 2015 Office Visit, Est Pt., Level 3 CPT-4 34578 Dec 30, 2015 [facility] CPT-4 NOBLL Dec 30, 2015 VENIPUNCT, ROUTINE* CPT-4 80036 Dec 30, 2015 Vital Signs Date/Time: Dec 30, 2015 Cardiac Monitoring Heart Rate 80 bpm Weight 325.0 lbs Height 70 in BMI 46.63 Index Blood Pressure Diastolic 82 mmHg Blood Pressure Systolic 122 mmHg Results Name Result Date Reference Range Unit Abnormality Flag ROUTINE VENIPUNCTURE Summary Purpose eClinicalWorks Submission
--- OUTSIDE RECORDS SUMMARY | 2016-06-14 04:20 | XMS REPORT ---
Author Author HERBER STORM Organization eClinicalWorks Address Unknown Phone Unavailable Care Team Providers Care Nnp Name Role Phone HERBER STORM CP Unavailable Allergies No Known Allergies Problems Problem Type Condition Code Onset Dates Condition Status Problem IRVIN (obstructive sleep apnea) G47.33 Active Problem Other specified hypothyroidism E03.8 Active Problem Restless legs syndrome G25.81 Active Problem GERD with esophagitis K21.0 Active Problem Asthma J45.909 Active Problem Rupture of tendon of right shoulder S46.911A Active Problem Asthma with acute exacerbation J45.901 Active Problem Bronchitis J40 Active Medications No Known Medications Results No Known Results Summary Purpose eClinicalWorks Submission
--- OUTSIDE RECORDS SUMMARY | 2016-06-14 04:20 | XMS REPORT ---
Author Author TAMMY COPELAND Organization eClinicalWorks Address Unknown Phone Unavailable Care Team Providers Care Technical Support Director Name Role Phone TAMMY COPELAND CP Unavailable [...] Instructions Start Date End Date Status Dosage Dicyclomine HCl [facility] [address]-47 20 mg Orally 3 times a day, PRN Feb 11, 2016 1 tablet Results No Known Results Summary Purpose eClinicalWorks Submission
--- OUTSIDE RECORDS SUMMARY | 2016-06-14 04:20 | XMS REPORT ---
Author Author TAMMY COPELAND Organization e[employer] Address Unknown Phone Unavailable Care Team Providers Care Mounting Machine Operator Name Role Phone TAMMY COPELAND CP Unavailable [...] Problem Pain in joint, hand 719.44 Active Assessment Thyroid antibody positive 795.79 Active Problem Bilateral leg pain 729.5 Active [...] prophylactic vaccination and inoculation, Influenza V04.81 Active Assessment Thyroid function test abnormal 794.5 Active Problem Other chronic nonalcoholic liver disease 571.8 Active Problem Unspecified orchitis and epididymitis 604.90 Active Problem Pain in joint, forearm 719.43 Active Problem Acute sinusitis, unspecified 461.9 Active Problem Personal history of other allergy, other than to medicinal agents V15.09 Active Medications No Known Medications Results No Known Results Summary Purpose eClinicalWorks Submission
--- OUTSIDE RECORDS SUMMARY | 2016-06-14 04:20 | XMS REPORT ---
Author TAMMY Benz [facility] eClinicalWorks Address Unknown Phone Unavailable Care Team Providers Care Sephora Product Consultant Name Role Phone TAMMY COPELAND CP Unavailable Allergies, Adverse Reactions, Alerts Substance Reaction Event Type N.K.D.A. Info Not Available Non Drug Allergy Problems Problem Type Condition ICD-9 Code Onset [...] respiratory infections of unspecified site 465.9 Active Assessment Right shoulder pain 719.41 Active Problem Heartburn 787.1 Active Problem Other [...] vaccination and inoculation, Influenza V04.81 Active Assessment Hypothyroidism 244.9 Active Problem Other chronic nonalcoholic liver disease 571.8 Active Problem Unspecified orchitis and epididymitis 604.90 Active Problem Pain in joint, forearm 719.43 Active Problem Acute sinusitis, unspecified 461.9 Active Problem Personal history of other allergy, other than to medicinal agents V15.09 Active Medications Medication Code System Code Instructions Start Date End Date Status Dosage Diclofenac Sodium [facility] 84924437031 75 MG TAKE ONE TABLET BY MOUTH TWICE DAILY NEEDED Fluticasone Propionate [facility] 64280494972 50 MCG/ACT USE ONE SPRAY IN EACH NOSTRIL TWICE DAILY MiraLax [facility] [address]-90 17 gram/dose Dec 26, 2013 take 17 g mixed with 8 oz. water or juice by Oral route 1 time per day Advair Diskus [facility] [address]-16 250-50 MCG/DOSE Inhalation Twice a day Jan 30, 2014 1 puffs by Inhalation route 2 times per day Hydrochlorothiazide [facility] 95713845729 50 MG TAKE ONE TABLET BY MOUTH DAILY Ventolin HFA [facility] [address]-45 90 mcg/actuation Feb 27, 2014 2 puffs by Inhalation route 4 times per day PRN keep on file don't fill today NorGreater [facility] 60450414981 10 MG TAKE ONE TABLET BY MOUTH DAILY Flovent Diskus [facility] [address]-01 250 mcg/actuation May 29, 2014 inhale 1 puff (250 mcg) by inhalation route 2 times per day Fish Oil [facility] [address]-89 1000 MG Orally Twice a day 1 capsule Neurontin [facility] [address]-10 300 MG Orally Once a day at night 1 capsule Levothyroxine Sodium [facility] [address]-17 25 MCG Orally Once a day Dec 05, 2014 1 capsule Levothyroxine Sodium [facility] [address]-62 200 MCG Orally Once a day 1 tablet Vitamin D3 [facility] 10650-64056 1,000 unit Jan 15, 2012 2 capsule by Oral route 1 time per day [place] [facility] [address]-52 5-325 MG Orally at bedtime as needed Dec 05, 2014 Dec 15, 2014 1 tablet as needed Omeprazole [facility] 76935785709 20 MG TAKE ONE CAPSULE BY MOUTH TWICE DAILY Quinapril HCl [facility] 03274629130 20 MG TAKE THREE TABLETS BY MOUTH DAILY Aspirin [facility] [address]-93 81 mg Feb 27, 2014 1 tablet by Oral route 1 time per day Procedures Procedure Coding System Code Date [facility] VISIT ESTABLISHED PATIENT CPT-4 G0467 Dec 05, 2014 Office Visit, Est Pt., Level 4 CPT-4 71738 Dec 05, 2014 X-RAY EXAM OF SHOULDER CPT-4 05860 Dec 05, 2014 Vital Signs Date/Time: Dec 05, 2014 Temperature 97.7 F Weight 315.3 lbs Height 70 in BMI 45.24 Index Blood Pressure Diastolic 76 mmHg Blood Pressure Systolic 130 mmHg Cardiac Monitoring Heart Rate 76 bpm Results No Known Results Summary Purpose eClinicalWorks Submission
--- OUTSIDE RECORDS SUMMARY | 2016-06-14 04:20 | XMS REPORT ---
Author Author TAMMY COPELAND [facility] eClinicalWorks Address Unknown Phone Unavailable Care Team Providers Care Plug Assembler Name Role Phone TAMMY COPELAND CP Unavailable [...] use of other medications V58.69 Active Assessment Restless leg G25.81 Active Problem Flatulence, eructation, and gas pain 787.3 Active Assessment Asthma J45.909 Active Problem Abdominal pain, epigastric 789.06 Active [...] Instructions Start Date End Date Status Dosage Requip [facility] [address]-70 0.5 MG Orally Once a day Feb 26, 2015 1/2 tab x 2 days then 1 tablet 1 to 3 hours before bedtime MiraLax [facility] [address]-82 17 gram/dose Dec 26, 2013 take 17 g mixed with 8 oz. water or juice by Oral route 1 time per day Advair Diskus [facility] [address]-56 250-50 MCG/DOSE Inhalation Twice a day Jan 30, 2014 1 puffs by Inhalation route 2 times per day Levothyroxine Sodium [facility] 82577034238 200 MCG TAKE ONE TABLET BY MOUTH DAILY Vitamin D3 [facility] 94878-[address]363 1,000 unit Jan 15, 2012 2 capsule by Oral route 1 time per day Fluticasone Propionate [facility] 73562608875 50 MCG/ACT USE ONE SPRAY IN EACH NOSTRIL TWICE DAILY Quinapril HCl [facility] 70212772693 20 MG TAKE THREE TABLETS BY MOUTH DAILY Neurontin [facility] [address]-58 300 MG Orally Once a day at night 1 capsule Hydrochlorothiazide [facility] 27615236810 50 MG TAKE ONE TABLET BY MOUTH DAILY Omeprazole [facility] 05140222139 20 MG TAKE ONE CAPSULE BY MOUTH TWICE DAILY Ventolin HFA [facility] [address]-29 90 mcg/actuation Feb 27, 2014 2 puffs by Inhalation route 4 times per day PRN keep on file don't fill today Aspirin [facility] [address]-02 81 mg Feb 27, 2014 1 tablet by Oral route 1 time per day Norvasc [facility] 87003410691 10 MG TAKE ONE TABLET BY MOUTH DAILY Fish Oil [facility] [address]-04 1000 MG Orally Twice a day 1 capsule ProAir HFA [facility] [address]-65 108 (90 Base) MCG/ACT Inhalation every 4 hrs prn Feb 26, 2015 2 puffs as needed Diclofenac Sodium [facility] 97636799504 75 MG TAKE ONE TABLET BY MOUTH TWICE DAILY NEEDED Procedures Procedure Coding System Code Date Office Visit, Est Pt., Level 3 CPT-4 29128 Feb 26, 2015 [facility] VISIT ESTABLISHED PATIENT CPT-4 G0467 Feb 26, 2015 Vital Signs Date/Time: Feb 26, 2015 Temperature 99.0 F Weight 316.6 lbs Height 70 in BMI 45.42 Index Blood Pressure Diastolic 82 mmHg Blood Pressure Systolic 148 mmHg Cardiac Monitoring Heart Rate 84 bpm Results No Known Results Summary Purpose eClinicalWorks Submission
--- OUTSIDE RECORDS SUMMARY | 2016-06-14 04:21 | XMS REPORT ---
Author Author TAMMY COPELAND Organization [employer] Address Unknown Phone Unavailable Care Team Providers Care Batch Still Operator Name Role Phone TAMMY COPELAND CP Unavailable Allergies No Known Allergies Problems Problem Type Condition Code Onset Dates Condition Status Problem Abdominal pain, right upper quadrant 789.01 Active Problem Diarrhea 787.91 Active Problem Pain in joint, lower leg 719.46 Active Problem Unspecified hereditary and idiopathic peripheral neuropathy 356.9 Active Problem Pain in joint, pelvic region [...] 465.9 Active Problem Lumbago 724.2 Active Problem Other specified headache syndromes 339.89 Active Problem Cellulitis and abscess of unspecified site 682.9 Active Problem Bilateral leg pain 729.5 Active Problem Hypertension 401.9 Active Problem Unspecified constipation 564.00 Active Problem Encounter for long-term (current) use of other medications V58.69 Active Assessment Rupture of tendon of right shoulder S46.911A Active Problem Rupture of tendon of right shoulder S46.911A Active Problem Pain in joint, hand 719.44 Active Problem Abdominal pain, epigastric 789.06 Active Problem Heartburn 787.1 Active Problem Edema 782.3 Active Problem Flatulence, eructation, and gas pain 787.3 Active Problem Obstructive sleep apnea (adult) (pediatric) 327.23 Active Problem Chronic airway obstruction, not elsewhere classified 496 Active Problem Nausea alone 787.02 Active Problem Acute sinusitis, unspecified 461.9 Active Problem Dizziness and giddiness 780.4 Active Problem Need for prophylactic vaccination and inoculation, Influenza V04.81 Active Problem Acute bronchitis 466.0 Active Problem PPV23 (PNEUMOVAX) DX V03.82 Active Problem Unspecified orchitis and epididymitis 604.90 Active Problem Pain in joint, forearm 719.43 Active Problem Special screening for malignant neoplasms, colon V76.51 Active Problem Unspecified myalgia and myositis 729.1 Active Problem Personal history of other allergy, other than to medicinal agents V15.09 Active Problem Other chronic nonalcoholic liver disease 571.8 Active Medications No Known Medications Results No Known Results Summary Purpose [employer] Submission
--- OUTSIDE RECORDS SUMMARY | 2016-06-14 04:21 | XMS REPORT ---
Author DENISE Kitchen [facility] [employer] Address Unknown Phone Unavailable Care Team Providers Care Drum Sander Setter Name Role Phone DENISE FATIMA CP Unavailable Allergies No Known Allergies Problems Problem Type Condition Code Onset Dates Condition Status Problem Diarrhea [...]
--- OUTSIDE RECORDS SUMMARY | 2016-06-14 04:26 | XMS REPORT | Continuity of Care Document ---
Author Author 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 10/20/2007 LIEN TINEO MD 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 ACTINIC KERATOSIS 10/20/2007 LIEN TINEO MD 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 10/20/2007 LIEN TINEO MD 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 ACTINIC KERATOSIS 10/20/2007 DENISE FATIMA DO 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 10/20/2007 DENISE FATIMA DO 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 ACTINIC KERATOSIS 10/20/2007 ODILON PARHAM MD 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 10/20/2007 ODILON PARHAM MD 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 ACTINIC KERATOSIS 10/20/2007 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 10/20/2007 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 ACTINIC KERATOSIS 10/20/2007 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 10/20/2007 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 ACTINIC KERATOSIS 10/20/2007 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 10/20/2007 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 ACTINIC KERATOSIS 10/20/2007 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 10/20/2007 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 ACTINIC KERATOSIS 10/20/2007 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 10/20/2007 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 ACTINIC KERATOSIS 10/20/2007 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 10/20/2007 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 ACTINIC KERATOSIS 10/20/2007 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 10/20/2007 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 ACTINIC KERATOSIS 10/20/2007 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 10/20/2007 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 ACTINIC KERATOSIS 10/20/2007 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 10/20/2007 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 ACTINIC KERATOSIS 10/20/2007 FATIMA DO, DENISE K 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 10/20/2007 FATIMA DO, DENISE K 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 ACTINIC KERATOSIS 10/20/2007 FATIMA DO, DENISE K 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 10/20/2007 FATIMA DO, DENISE K 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 ACTINIC KERATOSIS 10/20/2007 PRASAD NUÑEZ, ODILON Santos 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 10/20/2007 PRASAD NUÑEZ, ODILON Santos 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 10/20/2007 ODILON PARHAM MD 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 ACTINIC KERATOSIS 10/20/2007 FATIMA DO, DENISE K 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 10/20/2007 FATIMA DO, DENISE K 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 ACTINIC KERATOSIS 10/20/2007 FATIMA DO, DENISE K 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 10/20/2007 FATIMA DO, DENISE K 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 ACTINIC KERATOSIS 10/20/2007 FATIMA DO, DENISE K 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 10/20/2007 FATIMA DO, DENISE K 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 ACTINIC KERATOSIS 10/20/2007 FATIMA DO, DENISE K 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 10/20/2007 FATIMA DO, DENISE K 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 ACTINIC KERATOSIS 10/20/2007 FATIMA DO, DENISE K 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 10/20/2007 FATIMA DO, DENISE K 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 ACTINIC KERATOSIS 10/20/2007 FATIMA DO, DENISE K 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 10/20/2007 FATIMA DO, DENISE K 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 ACTINIC KERATOSIS 10/20/2007 MADL ORDERING BOX OPERATOR, TAMMY L 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 10/20/2007 MADL ORDERING BOX OPERATOR, TAMMY L 702.0 ACTINIC KERATOSIS 10/20/2007 MADL ORDERING BOX OPERATOR, TAMMY L 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 10/20/2007 MADL ORDERING BOX OPERATOR, TAMMY L 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 ACTINIC KERATOSIS 10/20/2007 MADL ORDERING BOX OPERATOR, TAMMY L 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 10/20/2007 MADL ORDERING BOX OPERATOR, TAMMY L 702.0 ACTINIC KERATOSIS 10/20/2007 MADL ORDERING BOX OPERATOR, TAMMY L 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 10/20/2007 MADL ORDERING BOX OPERATOR, TAMMY L 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 ACTINIC KERATOSIS 10/20/2007 FATIMA DO, DEINSE K 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 10/20/2007 FATIMA DO, DENISE K 702.0 ACTINIC KERATOSIS 10/20/2007 MADL ORDERING BOX OPERATOR, TAMMY L 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 10/20/2007 MADL ORDERING BOX OPERATOR, TAMMY L 702.0 ACTINIC KERATOSIS 10/20/2007 MADL ORDERING BOX OPERATOR, TAMMY L 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 10/20/2007 MADL ORDERING BOX OPERATOR, TAMMY L 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 ACTINIC KERATOSIS 10/20/2007 FATIMA DO, DENISE K 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 10/20/2007 FATIMA DO, DENISE K 702.0 ACTINIC KERATOSIS 10/20/2007 MADL ORDERING BOX OPERATOR, TAMMY L 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 10/20/2007 MADL ORDERING BOX OPERATOR, TAMMY L 702.0 ACTINIC KERATOSIS 10/20/2007 MADL ORDERING BOX OPERATOR, TAMMY L 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 10/20/2007 MADL ORDERING BOX OPERATOR, TAMMY L 702.0 ACTINIC KERATOSIS 10/20/2007 MADL ORDERING BOX OPERATOR, TAMMY L 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 10/20/2007 MADL ORDERING BOX OPERATOR, TAMMY L 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 ACTINIC KERATOSIS 10/20/2007 FATIMA DO, DENISE K 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 10/20/2007 FATIMA DO, DENISE K 702.0 ACTINIC KERATOSIS 11/03/2007 LIEN TINEO MD 719.47 PAIN IN JOINT INVOLVING ANKLE AND FOOT 11/03/2007 LIEN TINEO MD 719.47 PAIN IN JOINT INVOLVING ANKLE AND FOOT 11/03/2007 LIEN TINEO MD 719.47 PAIN IN JOINT INVOLVING ANKLE AND FOOT 11/03/2007 FATIMA DO DENISE K 719.47 PAIN IN JOINT INVOLVING ANKLE AND FOOT 11/03/2007 ODILON PARHAM MD 719.47 PAIN IN JOINT INVOLVING ANKLE AND FOOT 11/03/2007 719.47 PAIN IN JOINT INVOLVING ANKLE AND FOOT 11/03/2007 719.47 PAIN IN JOINT INVOLVING ANKLE AND FOOT 11/03/2007 719.47 PAIN IN JOINT INVOLVING ANKLE AND FOOT 11/03/2007 719.47 PAIN IN JOINT INVOLVING ANKLE AND FOOT 11/03/2007 719.47 PAIN IN JOINT INVOLVING ANKLE AND FOOT 11/03/2007 719.47 PAIN IN JOINT INVOLVING ANKLE AND FOOT 11/03/2007 719.47 PAIN IN JOINT INVOLVING ANKLE AND FOOT 11/03/2007 719.47 PAIN IN JOINT INVOLVING ANKLE AND FOOT 11/03/2007 719.47 PAIN IN JOINT INVOLVING ANKLE AND FOOT 11/03/2007 FATIMA DOKHADRAA K 719.47 PAIN IN JOINT INVOLVING ANKLE AND FOOT 11/03/2007 KHADRA FATIMA DOA K 719.47 PAIN IN JOINT INVOLVING ANKLE AND FOOT 11/03/2007 ODILON PARHAM MD 719.47 PAIN IN JOINT INVOLVING ANKLE AND FOOT 11/03/2007 FATIMA DOKHADRAA K 719.47 PAIN IN JOINT INVOLVING ANKLE AND FOOT 11/03/2007 KHADRA FATIMA DOA K 719.47 PAIN IN JOINT INVOLVING ANKLE AND FOOT 11/03/2007 CASSI LANZA MD 719.47 PAIN IN JOINT INVOLVING ANKLE AND FOOT 11/03/2007 AC DURHAM APRN 719.47 PAIN IN JOINT INVOLVING ANKLE AND FOOT 11/03/2007 ODILON PARHAM MD 719.47 PAIN IN JOINT INVOLVING ANKLE AND FOOT 11/03/2007 ODILON PARHAM MD 719.47 PAIN IN JOINT INVOLVING ANKLE AND FOOT 11/03/2007 KHADRA FATIMA DOA K 719.47 PAIN IN JOINT INVOLVING ANKLE AND FOOT 11/03/2007 AKUA DOKHADRAA K 719.47 PAIN IN JOINT INVOLVING ANKLE AND FOOT 11/03/2007 FATIMA DOKHADRAA K 719.47 PAIN IN JOINT INVOLVING ANKLE AND FOOT 11/03/2007 AKUA DOKHADRAA K 719.47 PAIN IN JOINT INVOLVING ANKLE AND FOOT 11/03/2007 FATIMA DOKHADRAA K 719.47 PAIN IN JOINT INVOLVING ANKLE AND FOOT 11/03/2007 KHADRA FATIMA DOA K 719.47 PAIN IN JOINT INVOLVING ANKLE AND FOOT 11/03/2007 MADL ORDERING BOX OPERATOR, TAMMY L 719.47 PAIN IN JOINT INVOLVING ANKLE AND FOOT 11/03/2007 MADL ORDERING BOX OPERATOR, TAMMY L 719.47 PAIN IN JOINT INVOLVING ANKLE AND FOOT 11/03/2007 MADL ORDERING BOX OPERATOR, TAMMY L 719.47 PAIN IN JOINT INVOLVING ANKLE AND FOOT 11/03/2007 MADL ORDERING BOX OPERATOR, TAMMY L 719.47 PAIN IN JOINT INVOLVING ANKLE AND FOOT 11/03/2007 FATIMA DO DENISE K 719.47 PAIN IN JOINT INVOLVING ANKLE AND FOOT 11/03/2007 MADL ORDERING BOX OPERATOR, TAMMY L 719.47 PAIN IN JOINT INVOLVING ANKLE AND FOOT 11/03/2007 MADL ORDERING BOX OPERATOR, TAMMY L 719.47 PAIN IN JOINT INVOLVING ANKLE AND FOOT 11/03/2007 DENISE FATIMA DO 719.47 PAIN IN JOINT INVOLVING ANKLE AND FOOT 11/03/2007 MADL ORDERING BOX OPERATOR, TAMMY L 719.47 PAIN IN JOINT INVOLVING ANKLE AND FOOT 11/03/2007 MADL ORDERING BOX OPERATOR, TAMMY L 719.47 PAIN IN JOINT INVOLVING ANKLE AND FOOT 11/03/2007 MADL ORDERING BOX OPERATOR, TAMMY L 719.47 PAIN IN JOINT INVOLVING ANKLE AND FOOT 11/03/2007 DENISE FATIMA DO K 719.47 PAIN IN JOINT INVOLVING ANKLE AND FOOT 04/17/2008 LIEN TINEO MD 719.46 joint pain, localized in the knee 04/17/2008 LIEN TINEO MD 719.46 joint pain, localized in the knee 04/17/2008 LIEN TINEO MD 719.46 joint pain, localized in the knee 04/17/2008 DENISE FATIMA DO 719.46 joint pain, localized in the knee 04/17/2008 ODILON PARHAM MD 719.46 joint pain, localized in the knee 04/17/2008 719.46 joint pain, localized in the knee 04/17/2008 719.46 joint pain, localized in the knee 04/17/2008 719.46 joint pain, localized in the knee 04/17/2008 719.46 joint pain, localized in the knee 04/17/2008 719.46 joint pain, localized in the knee 04/17/2008 719.46 joint pain, localized in the knee 04/17/2008 719.46 joint pain, localized in the knee 04/17/2008 719.46 joint pain, localized in the knee 04/17/2008 719.46 joint pain, localized in the knee 04/17/2008 DENISE FATIMA DO 719.46 joint pain, localized in the knee 04/17/2008 DENISE FATIMA DO 719.46 joint pain, localized in the knee 04/17/2008 ODILON PARHAM MD 719.46 joint pain, localized in the knee 04/17/2008 DENISE FATIMA DO 719.46 joint pain, localized in the knee 04/17/2008 FATIMA DO, DENISE K 719.46 joint pain, localized in the knee 04/17/2008 MYLA NUÑEZ, CASSI M 719.46 joint pain, localized in the knee 04/17/2008 HERMINIO RAMIREZ AC T 719.46 joint pain, localized in the knee 04/17/2008 PRASAD NUÑEZ, ODILON Santos 719.46 joint pain, localized in the knee 04/17/2008 ODILON PARHAM MD 719.46 joint pain, localized in the knee 04/17/2008 FATIMA DO, DENISE K 719.46 JOINT PAIN, LOCALIZED IN THE KNEE 04/17/2008 FATIMA DO, DENISE K 719.46 JOINT PAIN, LOCALIZED IN THE KNEE 04/17/2008 FATIMA DO, DENISE K 719.46 JOINT PAIN, LOCALIZED IN THE KNEE 04/17/2008 FATIMA DO, DENISE K 719.46 JOINT PAIN, LOCALIZED IN THE KNEE 04/17/2008 FATIMA DO, DENISE K 719.46 JOINT PAIN, LOCALIZED IN THE KNEE 04/17/2008 FATIMA DO, DENISE K 719.46 JOINT PAIN, LOCALIZED IN THE KNEE 04/17/2008 MADL ORDERING BOX OPERATOR, TAMMY L 719.46 JOINT PAIN, LOCALIZED IN THE KNEE 04/17/2008 MADL ORDERING BOX OPERATOR, TAMMY L 719.46 JOINT PAIN, LOCALIZED IN THE KNEE 04/17/2008 MADL ORDERING BOX OPERATOR, TAMMY L 719.46 JOINT PAIN, LOCALIZED IN THE KNEE 04/17/2008 MADL ORDERING BOX OPERATOR, TAMMY L 719.46 JOINT PAIN, LOCALIZED IN THE KNEE 04/17/2008 FATIMA DO, DENISE K 719.46 JOINT PAIN, LOCALIZED IN THE KNEE 04/17/2008 MADL ORDERING BOX OPERATOR, TAMMY L 719.46 JOINT PAIN, LOCALIZED IN THE KNEE 04/17/2008 MADL ORDERING BOX OPERATOR, TAMMY L 719.46 JOINT PAIN, LOCALIZED IN THE KNEE 04/17/2008 FATIMA DO, DENISE K 719.46 JOINT PAIN, LOCALIZED IN THE KNEE 04/17/2008 MADL ORDERING BOX OPERATOR, TAMMY L 719.46 JOINT PAIN, LOCALIZED IN THE KNEE 04/17/2008 MADL ORDERING BOX OPERATOR, TAMMY L 719.46 JOINT PAIN, LOCALIZED IN THE KNEE 04/17/2008 TAMMY COPELAND APRN 719.46 JOINT PAIN, LOCALIZED IN THE KNEE 04/17/2008 FATIMA KHADRA HERNANDEZA K 719.46 JOINT PAIN, LOCALIZED IN THE KNEE 11/13/2008 LIEN TINEO MD 244.9 HYPOTHYROIDISM 11/13/2008 LIEN TINEO MD 401.9 ESSENTIAL HYPERTENSION 11/13/2008 LIEN TINEO MD 493.90 ASTHMA 11/13/2008 LIEN TINEO MD 729.5 pain in the hands 11/13/2008 LIEN TINEO MD 244.9 HYPOTHYROIDISM 11/13/2008 LIEN TINEO MD 401.9 ESSENTIAL HYPERTENSION 11/13/2008 LIEN TINEO MD 493.90 ASTHMA 11/13/2008 LIEN TINEO MD 729.5 pain in the hands 11/13/2008 LIEN TINEO MD 244.9 HYPOTHYROIDISM 11/13/2008 LIEN TINEO MD 401.9 ESSENTIAL HYPERTENSION 11/13/2008 LIEN TINEO MD 493.90 ASTHMA 11/13/2008 LIEN TINEO MD 729.5 pain in the hands 11/13/2008 FATIMA DO DENISE K 244.9 HYPOTHYROIDISM 11/13/2008 FATIMA DO DENISE K 401.9 ESSENTIAL HYPERTENSION 11/13/2008 FATIMA DO DENISE K 493.90 ASTHMA 11/13/2008 FATIMA DO DENISE K 729.5 pain in the hands 11/13/2008 ODILON PARHAM MD 244.9 HYPOTHYROIDISM 11/13/2008 ODILON PARHAM MD 401.9 ESSENTIAL HYPERTENSION 11/13/2008 ODILON PARHAM MD 493.90 ASTHMA 11/13/2008 ODILON PARHAM MD 729.5 pain in the hands 11/13/2008 244.9 HYPOTHYROIDISM 11/13/2008 401.9 ESSENTIAL HYPERTENSION 11/13/2008 493.90 ASTHMA 11/13/2008 729.5 pain in the hands 11/13/2008 244.9 HYPOTHYROIDISM 11/13/2008 401.9 ESSENTIAL HYPERTENSION 11/13/2008 493.90 ASTHMA 11/13/2008 729.5 pain in the hands 11/13/2008 244.9 HYPOTHYROIDISM 11/13/2008 401.9 ESSENTIAL HYPERTENSION 11/13/2008 493.90 ASTHMA 11/13/2008 729.5 pain in the hands 11/13/2008 244.9 HYPOTHYROIDISM 11/13/2008 401.9 ESSENTIAL HYPERTENSION 11/13/2008 493.90 ASTHMA 11/13/2008 729.5 pain in the hands 11/13/2008 244.9 HYPOTHYROIDISM 11/13/2008 401.9 ESSENTIAL HYPERTENSION 11/13/2008 493.90 ASTHMA 11/13/2008 729.5 pain in the hands 11/13/2008 244.9 HYPOTHYROIDISM 11/13/2008 401.9 ESSENTIAL HYPERTENSION 11/13/2008 493.90 ASTHMA 11/13/2008 729.5 pain in the hands 11/13/2008 244.9 HYPOTHYROIDISM 11/13/2008 401.9 ESSENTIAL HYPERTENSION 11/13/2008 493.90 ASTHMA 11/13/2008 729.5 pain in the hands 11/13/2008 244.9 HYPOTHYROIDISM 11/13/2008 401.9 ESSENTIAL HYPERTENSION 11/13/2008 493.90 ASTHMA 11/13/2008 729.5 pain in the hands 11/13/2008 244.9 HYPOTHYROIDISM 11/13/2008 401.9 ESSENTIAL HYPERTENSION 11/13/2008 493.90 ASTHMA 11/13/2008 729.5 pain in the hands 11/13/2008 FATIMA DO, DENISE K 244.9 HYPOTHYROIDISM 11/13/2008 FATIMA DO, DENISE K 401.9 ESSENTIAL HYPERTENSION 11/13/2008 FATIMA DO, DENISE K 493.90 ASTHMA 11/13/2008 FATIMA DO, DENISE K 729.5 pain in the hands 11/13/2008 FATIMA DO, DENISE K 244.9 HYPOTHYROIDISM 11/13/2008 FATIMA DO, DENISE K 401.9 ESSENTIAL HYPERTENSION 11/13/2008 FATIMA DO, DENISE K 493.90 ASTHMA 11/13/2008 FATIMA DO, DENISE K 729.5 pain in the hands 11/13/2008 ODILON PARHAM MD 244.9 HYPOTHYROIDISM 11/13/2008 ODILON PARHAM MD 401.9 ESSENTIAL HYPERTENSION 11/13/2008 ODILON PARHAM MD 493.90 ASTHMA 11/13/2008 ODILON PARHAM MD 729.5 pain in the hands 11/13/2008 FATIMA DO, DENISE K 244.9 HYPOTHYROIDISM 11/13/2008 FATIMA DO, DENISE K 401.9 ESSENTIAL HYPERTENSION 11/13/2008 FATIMA DO, DENISE K 493.90 ASTHMA 11/13/2008 FATIMA DO, DENISE K 729.5 pain in the hands 11/13/2008 FATIMA DO, DENISE K 244.9 HYPOTHYROIDISM 11/13/2008 FATIMA DO, DENISE K 401.9 ESSENTIAL HYPERTENSION 11/13/2008 FATIMA DO, DENISE K 493.90 ASTHMA 11/13/2008 FATIMA DO, DENISE K 729.5 pain in the hands 11/13/2008 MYLA NUÑEZ, CASSI Santos 244.9 HYPOTHYROIDISM 11/13/2008 CASSI LANZA MD M 401.9 ESSENTIAL HYPERTENSION 11/13/2008 CASSI LANZA MD 493.90 ASTHMA 11/13/2008 CASSI LANZA MD 729.5 pain in the hands 11/13/2008 AC DURHAM APRN 244.9 HYPOTHYROIDISM 11/13/2008 AC DURHAM APRN 401.9 ESSENTIAL HYPERTENSION 11/13/2008 AC DURHAM APRN 493.90 ASTHMA 11/13/2008 AC DURHAM APRN 729.5 pain in the hands 11/13/2008 ODILON PARHAM MD 244.9 HYPOTHYROIDISM 11/13/2008 ODILON PARHAM MD 401.9 ESSENTIAL HYPERTENSION 11/13/2008 ODILON PARHAM MD 493.90 ASTHMA 11/13/2008 ODILON PARHAM MD 729.5 pain in the hands 11/13/2008 ODILON PARHAM MD 244.9 HYPOTHYROIDISM 11/13/2008 ODILON PARHAM MD 401.9 ESSENTIAL HYPERTENSION 11/13/2008 ODILON PARHAM MD 493.90 ASTHMA 11/13/2008 ODILON PARHAM MD 729.5 pain in the hands 11/13/2008 FATIMA DO, DENISE K 244.9 HYPOTHYROIDISM 11/13/2008 FATIMA DO, DENISE K 401.9 ESSENTIAL HYPERTENSION 11/13/2008 FATIMA DO, DENISE K 493.90 ASTHMA 11/13/2008 FATIMA DO, DENISE K 729.5 PAIN IN THE HANDS 11/13/2008 FATIMA DO, DENISE K 244.9 HYPOTHYROIDISM 11/13/2008 FATIMA DO, DENISE K 401.9 ESSENTIAL HYPERTENSION 11/13/2008 FATIMA DO, DENISE K 493.90 ASTHMA 11/13/2008 FATIMA DO, DENISE K 729.5 PAIN IN THE HANDS 11/13/2008 FATIMA DO, DENISE K 244.9 HYPOTHYROIDISM 11/13/2008 FATIMA DO, DENISE K 401.9 ESSENTIAL HYPERTENSION 11/13/2008 FATIMA DO, DENISE K 493.90 ASTHMA 11/13/2008 FATIMA DO, DENISE K 729.5 PAIN IN THE HANDS 11/13/2008 FATIMA DO, DENISE K 244.9 HYPOTHYROIDISM 11/13/2008 FATIMA DO, DENISE K 401.9 ESSENTIAL HYPERTENSION 11/13/2008 FATIMA DO, DENISE K 493.90 ASTHMA 11/13/2008 FATIMA DO, DENISE K 729.5 PAIN IN THE HANDS 11/13/2008 FATIMA DO, DENISE K 244.9 HYPOTHYROIDISM 11/13/2008 FATIMA DO, DENISE K 401.9 ESSENTIAL HYPERTENSION 11/13/2008 FATIMA DO, DENISE K 493.90 ASTHMA 11/13/2008 FATIMA DO, DENISE K 729.5 PAIN IN THE HANDS 11/13/2008 FATIMA DO, DENISE K 244.9 HYPOTHYROIDISM 11/13/2008 FATIMA DO, DENISE K 401.9 ESSENTIAL HYPERTENSION 11/13/2008 FATIMA DO, DENISE K 493.90 ASTHMA 11/13/2008 FATIMA DO, DENISE K 729.5 PAIN IN THE HANDS 11/13/2008 MADL ORDERING BOX OPERATOR, TAMMY L 244.9 HYPOTHYROIDISM 11/13/2008 MADL ORDERING BOX OPERATOR, TAMMY L 401.9 ESSENTIAL HYPERTENSION 11/13/2008 MADL ORDERING BOX OPERATOR, TAMMY L 493.90 ASTHMA 11/13/2008 MADL ORDERING BOX OPERATOR, TAMMY L 729.5 PAIN IN THE HANDS 11/13/2008 MADL ORDERING BOX OPERATOR, TAMMY L 244.9 HYPOTHYROIDISM 11/13/2008 MADL ORDERING BOX OPERATOR, TAMMY L 401.9 ESSENTIAL HYPERTENSION 11/13/2008 MADL ORDERING BOX OPERATOR, TAMMY L 493.90 ASTHMA 11/13/2008 MADL ORDERING BOX OPERATOR, TAMMY L 729.5 PAIN IN THE HANDS 11/13/2008 MADL ORDERING BOX OPERATOR, TAMMY L 244.9 HYPOTHYROIDISM 11/13/2008 MADL ORDERING BOX OPERATOR, TAMMY L 401.9 ESSENTIAL HYPERTENSION 11/13/2008 MADL ORDERING BOX OPERATOR, TAMMY L 493.90 ASTHMA 11/13/2008 MADL ORDERING BOX OPERATOR, TAMMY L 729.5 PAIN IN THE HANDS 11/13/2008 MADL ORDERING BOX OPERATOR, TAMMY L 244.9 HYPOTHYROIDISM 11/13/2008 MADL ORDERING BOX OPERATOR, TAMMY L 401.9 ESSENTIAL HYPERTENSION 11/13/2008 MADL ORDERING BOX OPERATOR, TAMMY L 493.90 ASTHMA 11/13/2008 MADL ORDERING BOX OPERATOR, TAMMY L 729.5 PAIN IN THE HANDS 11/13/2008 FATIMA DO, DENISE K 244.9 HYPOTHYROIDISM 11/13/2008 FATIMA DO, DENISE K 401.9 ESSENTIAL HYPERTENSION 11/13/2008 FATIMA DO, DENISE K 493.90 ASTHMA 11/13/2008 FATIMA DO, DENISE K 729.5 PAIN IN THE HANDS 11/13/2008 MADL ORDERING BOX OPERATOR, TAMMY L 244.9 HYPOTHYROIDISM 11/13/2008 MADL ORDERING BOX OPERATOR, TAMMY L 401.9 ESSENTIAL HYPERTENSION 11/13/2008 MADL ORDERING BOX OPERATOR, TAMMY L 493.90 ASTHMA 11/13/2008 MADL ORDERING BOX OPERATOR, TAMMY L 729.5 PAIN IN THE HANDS 11/13/2008 MADL ORDERING BOX OPERATOR, TAMMY L 244.9 HYPOTHYROIDISM 11/13/2008 MADL ORDERING BOX OPERATOR, TAMMY L 401.9 ESSENTIAL HYPERTENSION 11/13/2008 MADL ORDERING BOX OPERATOR, TAMMY L 493.90 ASTHMA 11/13/2008 MADL ORDERING BOX OPERATOR, TAMMY L 729.5 PAIN IN THE HANDS 11/13/2008 FATIMA DO, DENISE K 244.9 HYPOTHYROIDISM 11/13/2008 FATIMA DO, DENISE K 401.9 ESSENTIAL HYPERTENSION 11/13/2008 FATIMA DO, DENISE K 493.90 ASTHMA 11/13/2008 FATIMA DO, DENISE K 729.5 PAIN IN THE HANDS 11/13/2008 MADL ORDERING BOX OPERATOR, TAMMY L 244.9 HYPOTHYROIDISM 11/13/2008 MADL ORDERING BOX OPERATOR, TAMMY L 401.9 ESSENTIAL HYPERTENSION 11/13/2008 MADL ORDERING BOX OPERATOR, TAMMY L 493.90 ASTHMA 11/13/2008 MADL ORDERING BOX OPERATOR, TAMMY L 729.5 PAIN IN THE HANDS 11/13/2008 MADL ORDERING BOX OPERATOR, TAMMY L 244.9 HYPOTHYROIDISM 11/13/2008 MADL ORDERING BOX OPERATOR, TAMMY L 401.9 ESSENTIAL HYPERTENSION 11/13/2008 MADL ORDERING BOX OPERATOR, TAMMY L 493.90 ASTHMA 11/13/2008 MADL ORDERING BOX OPERATOR, TAMMY L 729.5 PAIN IN THE HANDS 11/13/2008 MADL ORDERING BOX OPERATOR, TAMMY L 244.9 HYPOTHYROIDISM 11/13/2008 MADL ORDERING BOX OPERATOR, TAMMY L 401.9 ESSENTIAL HYPERTENSION 11/13/2008 MADL ORDERING BOX OPERATOR, TAMMY L 493.90 ASTHMA 11/13/2008 MADL ORDERING BOX OPERATOR, TAMMY L 729.5 PAIN IN THE HANDS 11/13/2008 FATIMA DO, DENISE K 244.9 HYPOTHYROIDISM 11/13/2008 FATIMA DO, DENISE K 401.9 ESSENTIAL HYPERTENSION 11/13/2008 FATIMA DO, DENISE K 493.90 ASTHMA 11/13/2008 FATIMA DO, DENISE K 729.5 PAIN IN THE HANDS 12/03/2008 LIEN TINEO MD 278.01 OBESITY MORBID 12/03/2008 LIEN TINEO MD 278.01 OBESITY MORBID 12/03/2008 LIEN TINEO MD 278.01 OBESITY MORBID 12/03/2008 FATIMA DO DENISE K 278.01 OBESITY MORBID 12/03/2008 ODILON PARHAM MD 278.01 OBESITY MORBID 12/03/2008 278.01 OBESITY MORBID 12/03/2008 278.01 OBESITY MORBID 12/03/2008 278.01 OBESITY MORBID 12/03/2008 278.01 OBESITY MORBID 12/03/2008 278.01 OBESITY MORBID 12/03/2008 278.01 OBESITY MORBID 12/03/2008 278.01 OBESITY MORBID 12/03/2008 278.01 OBESITY MORBID 12/03/2008 278.01 OBESITY MORBID 12/03/2008 FATIMA DO DENISE K 278.01 OBESITY MORBID 12/03/2008 FATIMA DO DENISE K 278.01 OBESITY MORBID 12/03/2008 ODILON PARHAM MD 278.01 OBESITY MORBID 12/03/2008 FATIMA DO DENISE K 278.01 OBESITY MORBID 12/03/2008 FATIMA DO DENISE K 278.01 OBESITY MORBID 12/03/2008 CASSI LANZA MD 278.01 OBESITY MORBID 12/03/2008 AC DURHAM APRN 278.01 OBESITY MORBID 12/03/2008 ODILON PARHAM MD 278.01 OBESITY MORBID 12/03/2008 ODILON PARHAM MD 278.01 OBESITY MORBID 12/03/2008 FATIMA DO, DENISE K 278.01 OBESITY MORBID 12/03/2008 FATIMA DO, DENISE K 278.01 OBESITY MORBID 12/03/2008 FATIMA DO, DENISE K 278.01 OBESITY MORBID 12/03/2008 FATIMA DO, DENISE K 278.01 OBESITY MORBID 12/03/2008 FATIMA DO, DENISE K 278.01 OBESITY MORBID 12/03/2008 FATIMA DO, DENISE K 278.01 OBESITY MORBID 12/03/2008 MADL ORDERING BOX OPERATOR, TAMMY L 278.01 OBESITY MORBID 12/03/2008 MADL ORDERING BOX OPERATOR, TAMMY L 278.01 OBESITY MORBID 12/03/2008 MADL ORDERING BOX OPERATOR, TAMMY L 278.01 OBESITY MORBID 12/03/2008 MADL ORDERING BOX OPERATOR, TAMMY L 278.01 OBESITY MORBID 12/03/2008 FATIMA DO, DENISE K 278.01 OBESITY MORBID 12/03/2008 MADL ORDERING BOX OPERATOR, TAMMY L 278.01 OBESITY MORBID 12/03/2008 MADL ORDERING BOX OPERATOR, TAMMY L 278.01 OBESITY MORBID 12/03/2008 FATIMA DO, DENISE K 278.01 OBESITY MORBID 12/03/2008 MADL ORDERING BOX OPERATOR, TAMMY L 278.01 OBESITY MORBID 12/03/2008 MADL ORDERING BOX OPERATOR, TAMMY L 278.01 OBESITY MORBID 12/03/2008 MADL ORDERING BOX OPERATOR, TAMMY L 278.01 OBESITY MORBID 12/03/2008 FATIMA DO, DENISE K 278.01 OBESITY MORBID 01/08/2009 LIEN TINEO MD 715.04 OSTEOARTHRITIS GENERALIZED HAND 01/08/2009 LIEN TINEO MD 715.04 OSTEOARTHRITIS GENERALIZED HAND 01/08/2009 LIEN TINEO MD 715.04 OSTEOARTHRITIS GENERALIZED HAND 01/08/2009 FATIMA DO, DENISE K 715.04 OSTEOARTHRITIS GENERALIZED HAND 01/08/2009 ODILON PARHAM MD 715.04 OSTEOARTHRITIS GENERALIZED HAND 01/08/2009 715.04 OSTEOARTHRITIS GENERALIZED HAND 01/08/2009 715.04 OSTEOARTHRITIS GENERALIZED HAND 01/08/2009 715.04 OSTEOARTHRITIS GENERALIZED HAND 01/08/2009 715.04 OSTEOARTHRITIS GENERALIZED HAND 01/08/2009 715.04 OSTEOARTHRITIS GENERALIZED HAND 01/08/2009 715.04 OSTEOARTHRITIS GENERALIZED HAND 01/08/2009 715.04 OSTEOARTHRITIS GENERALIZED HAND 01/08/2009 715.04 OSTEOARTHRITIS GENERALIZED HAND 01/08/2009 715.04 OSTEOARTHRITIS GENERALIZED HAND 01/08/2009 FATIMA DO, DENISE K 715.04 OSTEOARTHRITIS GENERALIZED HAND 01/08/2009 FATIMA DO, DENISE K 715.04 OSTEOARTHRITIS GENERALIZED HAND 01/08/2009 ODILON PARHAM MD 715.04 OSTEOARTHRITIS GENERALIZED HAND 01/08/2009 FATIMA DO, DENISE K 715.04 OSTEOARTHRITIS GENERALIZED HAND 01/08/2009 FATIMA DO, DENISE K 715.04 OSTEOARTHRITIS GENERALIZED HAND 01/08/2009 MYLA NUÑEZ, CASSI Santos 715.04 OSTEOARTHRITIS GENERALIZED HAND 01/08/2009 AC DURHAM APRN 715.04 OSTEOARTHRITIS GENERALIZED HAND 01/08/2009 PRASAD NUÑEZ, ODILON Santos 715.04 OSTEOARTHRITIS GENERALIZED HAND 01/08/2009 PRASAD NUÑEZ, ODILON Santos 715.04 OSTEOARTHRITIS GENERALIZED HAND 01/08/2009 FATIMA DO, DENISE K 715.04 OSTEOARTHRITIS GENERALIZED HAND 01/08/2009 FATIMA DO, DENISE K 715.04 OSTEOARTHRITIS GENERALIZED HAND 01/08/2009 FATIMA DO, DENISE K 715.04 OSTEOARTHRITIS GENERALIZED HAND 01/08/2009 FATIMA DO, DENISE K 715.04 OSTEOARTHRITIS GENERALIZED HAND 01/08/2009 FATIMA DO, DENISE K 715.04 OSTEOARTHRITIS GENERALIZED HAND 01/08/2009 FATIMA DO, DENISE K 715.04 OSTEOARTHRITIS GENERALIZED HAND 01/08/2009 MADL ORDERING BOX OPERATOR, TAMMY L 715.04 OSTEOARTHRITIS GENERALIZED HAND 01/08/2009 MADL ORDERING BOX OPERATOR, TAMMY L 715.04 OSTEOARTHRITIS GENERALIZED HAND 01/08/2009 MADL ORDERING BOX OPERATOR, TAMMY L 715.04 OSTEOARTHRITIS GENERALIZED HAND 01/08/2009 MADL ORDERING BOX OPERATOR, TAMMY L 715.04 OSTEOARTHRITIS GENERALIZED HAND 01/08/2009 FATIMA DO, DENISE K 715.04 OSTEOARTHRITIS GENERALIZED HAND 01/08/2009 MADL ORDERING BOX OPERATOR, TAMMY L 715.04 OSTEOARTHRITIS GENERALIZED HAND 01/08/2009 MADL ORDERING BOX OPERATOR, TAMMY L 715.04 OSTEOARTHRITIS GENERALIZED HAND 01/08/2009 FATIMA DO, DENISE K 715.04 OSTEOARTHRITIS GENERALIZED HAND 01/08/2009 MADL ORDERING BOX OPERATOR, TAMMY L 715.04 OSTEOARTHRITIS GENERALIZED HAND 01/08/2009 MADL ORDERING BOX OPERATOR, TAMMY L 715.04 OSTEOARTHRITIS GENERALIZED HAND 01/08/2009 MADL ORDERING BOX OPERATOR, TAMMY L 715.04 OSTEOARTHRITIS GENERALIZED HAND 01/08/2009 FATIMA DO, DENISE K 715.04 OSTEOARTHRITIS GENERALIZED HAND 02/20/2009 LIEN TINEO MD 601.0 PROSTATITIS ACUTE BACTERIAL 02/20/2009 LIEN TINEO MD 601.0 PROSTATITIS ACUTE BACTERIAL 02/20/2009 LIEN TINEO MD 601.0 PROSTATITIS ACUTE BACTERIAL 02/20/2009 FATIMA , DENISE K 601.0 PROSTATITIS ACUTE BACTERIAL 02/20/2009 ODILON PARHAM MD 601.0 PROSTATITIS ACUTE BACTERIAL 02/20/2009 601.0 PROSTATITIS ACUTE BACTERIAL 02/20/2009 601.0 PROSTATITIS ACUTE BACTERIAL 02/20/2009 601.0 PROSTATITIS ACUTE BACTERIAL 02/20/2009 601.0 PROSTATITIS ACUTE BACTERIAL 02/20/2009 601.0 PROSTATITIS ACUTE BACTERIAL 02/20/2009 601.0 PROSTATITIS ACUTE BACTERIAL 02/20/2009 601.0 PROSTATITIS ACUTE BACTERIAL 02/20/2009 601.0 PROSTATITIS ACUTE BACTERIAL 02/20/2009 601.0 PROSTATITIS ACUTE BACTERIAL 02/20/2009 FATIMA DO, DENISE K 601.0 PROSTATITIS ACUTE BACTERIAL 02/20/2009 FATIMA DO DENISE K 601.0 PROSTATITIS ACUTE BACTERIAL 02/20/2009 ODILON PARHAM MD 601.0 PROSTATITIS ACUTE BACTERIAL 02/20/2009 FATIMA DO, DENISE K 601.0 PROSTATITIS ACUTE BACTERIAL 02/20/2009 FATIMA DO DENISE K 601.0 PROSTATITIS ACUTE BACTERIAL 02/20/2009 CASSI LANZA MD 601.0 PROSTATITIS ACUTE BACTERIAL 02/20/2009 AC DURHAM APRN 601.0 PROSTATITIS ACUTE BACTERIAL 02/20/2009 ODILON PARHAM MD 601.0 PROSTATITIS ACUTE BACTERIAL 02/20/2009 ODILON PARHAM MD 601.0 PROSTATITIS ACUTE BACTERIAL 02/20/2009 FATIMA DO DENISE K 601.0 PROSTATITIS ACUTE BACTERIAL 02/20/2009 FATIMA DO DENISE K 601.0 PROSTATITIS ACUTE BACTERIAL 02/20/2009 FATIMA DO DENISE K 601.0 PROSTATITIS ACUTE BACTERIAL 02/20/2009 FATIMA DO, DENISE K 601.0 PROSTATITIS ACUTE BACTERIAL 02/20/2009 FATIMA DO, DENISE K 601.0 PROSTATITIS ACUTE BACTERIAL 02/20/2009 FATIMA DO, DENISE K 601.0 PROSTATITIS ACUTE BACTERIAL 02/20/2009 MADL ORDERING BOX OPERATOR, TAMMY L 601.0 PROSTATITIS ACUTE BACTERIAL 02/20/2009 MADL ORDERING BOX OPERATOR, TAMMY L 601.0 PROSTATITIS ACUTE BACTERIAL 02/20/2009 MADL ORDERING BOX OPERATOR, TAMMY L 601.0 PROSTATITIS ACUTE BACTERIAL 02/20/2009 MADL ORDERING BOX OPERATOR, TAMMY L 601.0 PROSTATITIS ACUTE BACTERIAL 02/20/2009 FATIMA DO, DENISE K 601.0 PROSTATITIS ACUTE BACTERIAL 02/20/2009 MADL ORDERING BOX OPERATOR, TAMMY L 601.0 PROSTATITIS ACUTE BACTERIAL 02/20/2009 MADL ORDERING BOX OPERATOR, TAMMY L 601.0 PROSTATITIS ACUTE BACTERIAL 02/20/2009 FATIMA DO, DENISE K 601.0 PROSTATITIS ACUTE BACTERIAL 02/20/2009 MADL ORDERING BOX OPERATOR, TAMMY L 601.0 PROSTATITIS ACUTE BACTERIAL 02/20/2009 MADL ORDERING BOX OPERATOR, TAMMY L 601.0 PROSTATITIS ACUTE BACTERIAL 02/20/2009 MADL ORDERING BOX OPERATOR, TAMMY L 601.0 PROSTATITIS ACUTE BACTERIAL 02/20/2009 FATIMA DO, DENISE K 601.0 PROSTATITIS ACUTE BACTERIAL 03/08/2009 LIEN TINEO MD 461.9 SINUSITIS ACUTE 03/08/2009 LIEN TINEO MD 461.9 SINUSITIS ACUTE 03/08/2009 LIEN TINEO MD 461.9 SINUSITIS ACUTE 03/08/2009 FATIMA DO, DENISE K 461.9 SINUSITIS ACUTE 03/08/2009 ODILON PARHAM MD 461.9 SINUSITIS ACUTE 03/08/2009 461.9 SINUSITIS ACUTE 03/08/2009 461.9 SINUSITIS ACUTE 03/08/2009 461.9 SINUSITIS ACUTE 03/08/2009 461.9 SINUSITIS ACUTE 03/08/2009 461.9 SINUSITIS ACUTE 03/08/2009 461.9 SINUSITIS ACUTE 03/08/2009 461.9 SINUSITIS ACUTE 03/08/2009 461.9 SINUSITIS ACUTE 03/08/2009 461.9 SINUSITIS ACUTE 03/08/2009 FATIMA DO, DENISE K 461.9 SINUSITIS ACUTE 03/08/2009 FATIMA DO, DENISE K 461.9 SINUSITIS ACUTE 03/08/2009 PRASAD NUÑEZ, ODILON Santos 461.9 SINUSITIS ACUTE 03/08/2009 FATIMA DO, DENISE K 461.9 SINUSITIS ACUTE 03/08/2009 FATIMA DO, DENISE K 461.9 SINUSITIS ACUTE 03/08/2009 MYLA NUÑEZ, CASSI Santos 461.9 SINUSITIS ACUTE 03/08/2009 HERMINIO RAMIREZ, AC Vann 461.9 SINUSITIS ACUTE 03/08/2009 PRASAD NUÑEZ, ODILON Santos 461.9 SINUSITIS ACUTE 03/08/2009 PRASAD NUÑEZ, ODILON Santos 461.9 SINUSITIS ACUTE 03/08/2009 FATIMA DO, DENISE K 461.9 SINUSITIS ACUTE 03/08/2009 FATIMA DO, DENISE K 461.9 SINUSITIS ACUTE 03/08/2009 FATIMA DO, DENISE K 461.9 SINUSITIS ACUTE 03/08/2009 FATIMA DO, DENISE K 461.9 SINUSITIS ACUTE 03/08/2009 FATIMA DO, DENISE K 461.9 SINUSITIS ACUTE 03/08/2009 FATIMA DO, DENISE K 461.9 SINUSITIS ACUTE 03/08/2009 MADL ORDERING BOX OPERATOR, TAMMY L 461.9 SINUSITIS ACUTE 03/08/2009 MADL ORDERING BOX OPERATOR, TAMMY L 461.9 SINUSITIS ACUTE 03/08/2009 MADL ORDERING BOX OPERATOR, TAMMY L 461.9 SINUSITIS ACUTE 03/08/2009 MADL ORDERING BOX OPERATOR, TAMMY L 461.9 SINUSITIS ACUTE 03/08/2009 FATIMA DO, DENISE K 461.9 SINUSITIS ACUTE 03/08/2009 MADL ORDERING BOX OPERATOR, TAMMY L 461.9 SINUSITIS ACUTE 03/08/2009 MADL ORDERING BOX OPERATOR, TAMMY L 461.9 SINUSITIS ACUTE 03/08/2009 FATIMA DO, DENISE K 461.9 SINUSITIS ACUTE 03/08/2009 MADL ORDERING BOX OPERATOR, TAMMY L 461.9 SINUSITIS ACUTE 03/08/2009 MADL ORDERING BOX OPERATOR, TAMMY L 461.9 SINUSITIS ACUTE 03/08/2009 MIN ORDERING BOX OPERATOR, TAMMY L 461.9 SINUSITIS ACUTE 03/08/2009 FATIMA DO, DENISE K 461.9 SINUSITIS ACUTE 04/09/2009 NOMAN NUÑEZ, LIEN 477.9 ALLERGIC RHINITIS 04/09/2009 NOMAN NUÑEZ, LIEN 477.9 ALLERGIC RHINITIS 04/09/2009 NOMAN NUÑEZ, LIEN 477.9 ALLERGIC RHINITIS 04/09/2009 FATIMA DO, DENISE K 477.9 ALLERGIC RHINITIS 04/09/2009 PRASAD NUÑEZ, ODILON Santos 477.9 ALLERGIC RHINITIS 04/09/2009 477.9 ALLERGIC RHINITIS 04/09/2009 477.9 ALLERGIC RHINITIS 04/09/2009 477.9 ALLERGIC RHINITIS 04/09/2009 477.9 ALLERGIC RHINITIS 04/09/2009 477.9 ALLERGIC RHINITIS 04/09/2009 477.9 ALLERGIC RHINITIS 04/09/2009 477.9 ALLERGIC RHINITIS 04/09/2009 477.9 ALLERGIC RHINITIS 04/09/2009 477.9 ALLERGIC RHINITIS 04/09/2009 FATIMA DO, DENISE K 477.9 ALLERGIC RHINITIS 04/09/2009 FATIMA DO, DENISE K 477.9 ALLERGIC RHINITIS 04/09/2009 PRASAD NUÑEZ, ODILON Santos 477.9 ALLERGIC RHINITIS 04/09/2009 FATIMA DO, DENISE K 477.9 ALLERGIC RHINITIS 04/09/2009 FATIMA DO, DENISE K 477.9 ALLERGIC RHINITIS 04/09/2009 MYLA NUÑEZ, CASSI Santos 477.9 ALLERGIC RHINITIS 04/09/2009 AC DURHAM APRN 477.9 ALLERGIC RHINITIS 04/09/2009 PRASAD NUÑEZ, ODILON Santos 477.9 ALLERGIC RHINITIS 04/09/2009 PRASAD NUÑEZ, ODILNO Santos 477.9 ALLERGIC RHINITIS 04/09/2009 FATIMA DO, DENISE K 477.9 ALLERGIC RHINITIS 04/09/2009 FATIMA DO, DENISE K 477.9 ALLERGIC RHINITIS 04/09/2009 FATIMA DO, DENISE K 477.9 ALLERGIC RHINITIS 04/09/2009 FATIMA DO, DENISE K 477.9 ALLERGIC RHINITIS 04/09/2009 FATIMA DO, DENISE K 477.9 ALLERGIC RHINITIS 04/09/2009 FATIMA DO, DENISE K 477.9 ALLERGIC RHINITIS 04/09/2009 MADL ORDERING BOX OPERATOR, TAMMY L 477.9 ALLERGIC RHINITIS 04/09/2009 MADL ORDERING BOX OPERATOR, TAMMY L 477.9 ALLERGIC RHINITIS 04/09/2009 MADL ORDERING BOX OPERATOR, TAMMY L 477.9 ALLERGIC RHINITIS 04/09/2009 MADL ORDERING BOX OPERATOR, TAMMY L 477.9 ALLERGIC RHINITIS 04/09/2009 FATIMA DO, DENISE K 477.9 ALLERGIC RHINITIS 04/09/2009 MADL ORDERING BOX OPERATOR, TAMMY L 477.9 ALLERGIC RHINITIS 04/09/2009 MADL ORDERING BOX OPERATOR, TAMMY L 477.9 ALLERGIC RHINITIS 04/09/2009 FATIMA DO, DENISE K 477.9 ALLERGIC RHINITIS 04/09/2009 MADL ORDERING BOX OPERATOR, TAMMY L 477.9 ALLERGIC RHINITIS 04/09/2009 MADL ORDERING BOX OPERATOR, TAMMY L 477.9 ALLERGIC RHINITIS 04/09/2009 MADL ORDERING BOX OPERATOR, TAMMY L 477.9 ALLERGIC RHINITIS 04/09/2009 FATIMA DO, DENISE K 477.9 ALLERGIC RHINITIS 04/23/2009 LIEN TINEO MD 789.00 abdominal pain 04/23/2009 LIEN TINEO MD 789.00 abdominal pain 04/23/2009 LIEN TINEO MD 789.00 abdominal pain 04/23/2009 DENISE FATIMA DO 789.00 abdominal pain 04/23/2009 ODILON PARHAM MD 789.00 abdominal pain 04/23/2009 789.00 abdominal pain 04/23/2009 789.00 abdominal pain 04/23/2009 789.00 abdominal pain 04/23/2009 789.00 abdominal pain 04/23/2009 789.00 abdominal pain 04/23/2009 789.00 abdominal pain 04/23/2009 789.00 abdominal pain 04/23/2009 789.00 abdominal pain 04/23/2009 789.00 abdominal pain 04/23/2009 DENISE FATIMA DO 789.00 abdominal pain 04/23/2009 DENISE FATIMA DO 789.00 abdominal pain 04/23/2009 ODILON PARHAM MD 789.00 abdominal pain 04/23/2009 DENISE FATIMA DO 789.00 abdominal pain 04/23/2009 FATIMA DO, DENISE K 789.00 abdominal pain 04/23/2009 MYLA NUÑEZ, CASSI M 789.00 abdominal pain 04/23/2009 AC DURHAM APRN 789.00 abdominal pain 04/23/2009 PRASAD NUÑEZ, ODILON Santos 789.00 abdominal pain 04/23/2009 PRASAD NUÑEZ, ODILON Santos 789.00 abdominal pain 04/23/2009 FATIMA DO, DENISE K 789.00 ABDOMINAL PAIN 04/23/2009 FATIMA DO, DENISE K 789.00 ABDOMINAL PAIN 04/23/2009 FATIMA DO, DENISE K 789.00 ABDOMINAL PAIN 04/23/2009 FATIMA DO, DENISE K 789.00 ABDOMINAL PAIN 04/23/2009 FATIMA DO, DENISE K 789.00 ABDOMINAL PAIN 04/23/2009 FATIMA DO, DENISE K 789.00 ABDOMINAL PAIN 04/23/2009 MADL ORDERING BOX OPERATOR, TAMMY L 789.00 ABDOMINAL PAIN 04/23/2009 MADL ORDERING BOX OPERATOR, TAMMY L 789.00 ABDOMINAL PAIN 04/23/2009 MADL ORDERING BOX OPERATOR, TAMMY L 789.00 ABDOMINAL PAIN 04/23/2009 MADL ORDERING BOX OPERATOR, TAMMY L 789.00 ABDOMINAL PAIN 04/23/2009 FATIMA DO, DENISE K 789.00 ABDOMINAL PAIN 04/23/2009 MADL ORDERING BOX OPERATOR, TAMMY L 789.00 ABDOMINAL PAIN 04/23/2009 MADL ORDERING BOX OPERATOR, TAMMY L 789.00 ABDOMINAL PAIN 04/23/2009 FATIMA DO, DENISE K 789.00 ABDOMINAL PAIN 04/23/2009 MADL ORDERING BOX OPERATOR, TAMMY L 789.00 ABDOMINAL PAIN 04/23/2009 MADL ORDERING BOX OPERATOR, TAMMY L 789.00 ABDOMINAL PAIN 04/23/2009 MADL ORDERING BOX OPERATOR, TAMMY L 789.00 ABDOMINAL PAIN 04/23/2009 FATIMA DO, DENISE K 789.00 ABDOMINAL PAIN 05/09/2009 NOMAN NUÑEZ, LIEN 388.30 TINNITUS 05/09/2009 LIEN TINEO MD 388.30 TINNITUS 05/09/2009 LIEN TINEO MD 388.30 TINNITUS 05/09/2009 FATIMA DO, DENISE K 388.30 TINNITUS 05/09/2009 ODILON PARHAM MD 388.30 TINNITUS 05/09/2009 388.30 TINNITUS 05/09/2009 388.30 TINNITUS 05/09/2009 388.30 TINNITUS 05/09/2009 388.30 TINNITUS 05/09/2009 388.30 TINNITUS 05/09/2009 388.30 TINNITUS 05/09/2009 388.30 TINNITUS 05/09/2009 388.30 TINNITUS 05/09/2009 388.30 TINNITUS 05/09/2009 FATIMA DO, DENISE K 388.30 TINNITUS 05/09/2009 FATIMA DO, DENISE K 388.30 TINNITUS 05/09/2009 PRASAD NUÑEZ, ODILON Santos 388.30 TINNITUS 05/09/2009 FATIMA DO, DENISE K 388.30 TINNITUS 05/09/2009 FATIMA DO, DENISE K 388.30 TINNITUS 05/09/2009 MYLA NUÑEZ, CASSI Santos 388.30 TINNITUS 05/09/2009 AC DURHAM APRN 388.30 TINNITUS 05/09/2009 PRASAD NUÑEZ, ODILON Santos 388.30 TINNITUS 05/09/2009 ODILON PARHAM MD 388.30 TINNITUS 05/09/2009 FATIMA DO, DENISE K 388.30 TINNITUS 05/09/2009 FATIMA DO, DENISE K 388.30 TINNITUS 05/09/2009 FATIMA DO, DENISE K 388.30 TINNITUS 05/09/2009 FATIMA DO, DENISE K 388.30 TINNITUS 05/09/2009 FATIMA DO, DENISE K 388.30 TINNITUS 05/09/2009 FATIMA DO, DENISE K 388.30 TINNITUS 05/09/2009 MADL ORDERING BOX OPERATOR, TAMMY L 388.30 TINNITUS 05/09/2009 MADL ORDERING BOX OPERATOR, TAMMY L 388.30 TINNITUS 05/09/2009 MADL ORDERING BOX OPERATOR, TAMMY L 388.30 TINNITUS 05/09/2009 MADL ORDERING BOX OPERATOR, TAMMY L 388.30 TINNITUS 05/09/2009 FATIMA DO, DENISE K 388.30 TINNITUS 05/09/2009 MADL ORDERING BOX OPERATOR, TAMMY L 388.30 TINNITUS 05/09/2009 MADL ORDERING BOX OPERATOR, TAMMY L 388.30 TINNITUS 05/09/2009 FATIMA DO, DENISE K 388.30 TINNITUS 05/09/2009 MADL ORDERING BOX OPERATOR, TAMMY L 388.30 TINNITUS 05/09/2009 MADL ORDERING BOX OPERATOR, TAMMY L 388.30 TINNITUS 05/09/2009 MIN RAMIREZ, TAMMY Arabella 388.30 TINNITUS 05/09/2009 FATIMA , DENISE K 388.30 TINNITUS 08/01/2009 LIEN TINEO MD 780.79 OTHER MALAISE AND FATIGUE 08/01/2009 LIEN TINEO MD 780.79 OTHER MALAISE AND FATIGUE 08/01/2009 LIEN TINEO MD 780.79 OTHER MALAISE AND FATIGUE 08/01/2009 DENISE FATIMA DO 780.79 OTHER MALAISE AND FATIGUE 08/01/2009 ODILON PARHAM MD 780.79 OTHER MALAISE AND FATIGUE 08/01/2009 780.79 OTHER MALAISE AND FATIGUE 08/01/2009 780.79 OTHER MALAISE AND FATIGUE 08/01/2009 780.79 OTHER MALAISE AND FATIGUE 08/01/2009 780.79 OTHER MALAISE AND FATIGUE 08/01/2009 780.79 OTHER MALAISE AND FATIGUE 08/01/2009 780.79 OTHER MALAISE AND FATIGUE 08/01/2009 780.79 OTHER MALAISE AND FATIGUE 08/01/2009 780.79 OTHER MALAISE AND FATIGUE 08/01/2009 780.79 OTHER MALAISE AND FATIGUE 08/01/2009 FATIMA DODENISE K 780.79 OTHER MALAISE AND FATIGUE 08/01/2009 FATIMA DENISE HERNANDEZ K 780.79 OTHER MALAISE AND FATIGUE 08/01/2009 ODILON PARHAM MD 780.79 OTHER MALAISE AND FATIGUE 08/01/2009 FATIMA DENISE HERNANDEZ 780.79 OTHER MALAISE AND FATIGUE 08/01/2009 DENISE FATIMA DO K 780.79 OTHER MALAISE AND FATIGUE 08/01/2009 CASSI LANZA MD 780.79 OTHER MALAISE AND FATIGUE 08/01/2009 AC DURHAM APRN 780.79 OTHER MALAISE AND FATIGUE 08/01/2009 ODILON PARHAM MD 780.79 OTHER MALAISE AND FATIGUE 08/01/2009 ODILON PARHAM MD 780.79 OTHER MALAISE AND FATIGUE 08/01/2009 FATIMA DODENISE K 780.79 OTHER MALAISE AND FATIGUE 08/01/2009 FATIMA DENISE HERNANDEZ 780.79 OTHER MALAISE AND FATIGUE 08/01/2009 FATIMA DO, DENISE K 780.79 OTHER MALAISE AND FATIGUE 08/01/2009 FATIMA DO, DENISE K 780.79 OTHER MALAISE AND FATIGUE 08/01/2009 FATIMA DO, DENISE K 780.79 OTHER MALAISE AND FATIGUE 08/01/2009 FATIMA DO, DENISE K 780.79 OTHER MALAISE AND FATIGUE 08/01/2009 MADL ORDERING BOX OPERATOR, TAMMY L 780.79 OTHER MALAISE AND FATIGUE 08/01/2009 MADL ORDERING BOX OPERATOR, TAMMY L 780.79 OTHER MALAISE AND FATIGUE 08/01/2009 MADL ORDERING BOX OPERATOR, TAMMY L 780.79 OTHER MALAISE AND FATIGUE 08/01/2009 MADL ORDERING BOX OPERATOR, TAMMY L 780.79 OTHER MALAISE AND FATIGUE 08/01/2009 FATIMA DO, DENISE K 780.79 OTHER MALAISE AND FATIGUE 08/01/2009 MADL ORDERING BOX OPERATOR, TAMMY L 780.79 OTHER MALAISE AND FATIGUE 08/01/2009 MADL ORDERING BOX OPERATOR, TAMMY L 780.79 OTHER MALAISE AND FATIGUE 08/01/2009 FATIMA DO, DENISE K 780.79 OTHER MALAISE AND FATIGUE 08/01/2009 MADL ORDERING BOX OPERATOR, TAMMY L 780.79 OTHER MALAISE AND FATIGUE 08/01/2009 MADL ORDERING BOX OPERATOR, TAMMY L 780.79 OTHER MALAISE AND FATIGUE 08/01/2009 MADL ORDERING BOX OPERATOR, TAMMY L 780.79 OTHER MALAISE AND FATIGUE 08/01/2009 FATIMA DO, DENISE K 780.79 OTHER MALAISE AND FATIGUE 12/24/2009 LIEN TINEO MD 401.1 HYPERTENSION, BENIGN ESSENTIAL 12/24/2009 LIEN TINEO MD.90 ARTHRITIS/ ARTHROPATHY, UNSPECIFIED 12/24/2009 LIEN TINEO MD 401.1 HYPERTENSION, BENIGN ESSENTIAL 12/24/2009 LIEN TINEO MD.90 ARTHRITIS/ ARTHROPATHY, UNSPECIFIED 12/24/2009 LIEN TINEO MD 401.1 HYPERTENSION, BENIGN ESSENTIAL 12/24/2009 LIEN TINEO MD6.90 ARTHRITIS/ ARTHROPATHY, UNSPECIFIED 12/24/2009 FATIMA DO DENISE K 401.1 HYPERTENSION, BENIGN ESSENTIAL 12/24/2009 FATIMA DO DENISE K 716.90 ARTHRITIS/ ARTHROPATHY, UNSPECIFIED 12/24/2009 PRASAD NUÑEZ, ODILON Santos 401.1 HYPERTENSION, BENIGN ESSENTIAL 12/24/2009 PRASAD NUÑEZ, ODILON Santos 716.90 ARTHRITIS/ ARTHROPATHY, UNSPECIFIED 12/24/2009 401.1 HYPERTENSION, BENIGN ESSENTIAL 12/24/2009 716.90 ARTHRITIS/ ARTHROPATHY, UNSPECIFIED 12/24/2009 401.1 HYPERTENSION, BENIGN ESSENTIAL 12/24/2009 716.90 ARTHRITIS/ ARTHROPATHY, UNSPECIFIED 12/24/2009 401.1 HYPERTENSION, BENIGN ESSENTIAL 12/24/2009 716.90 ARTHRITIS/ ARTHROPATHY, UNSPECIFIED 12/24/2009 401.1 ESSENTIAL HYPERTENSION BENIGN 12/24/2009 716.90 ARTHRITIS/ ARTHROPATHY, UNSPECIFIED 12/24/2009 401.1 ESSENTIAL HYPERTENSION BENIGN 12/24/2009 716.90 ARTHRITIS/ ARTHROPATHY, UNSPECIFIED 12/24/2009 401.1 ESSENTIAL HYPERTENSION BENIGN 12/24/2009 716.90 ARTHRITIS/ ARTHROPATHY, UNSPECIFIED 12/24/2009 401.1 ESSENTIAL HYPERTENSION BENIGN 12/24/2009 716.90 ARTHROPATHY 12/24/2009 401.1 ESSENTIAL HYPERTENSION BENIGN 12/24/2009 716.90 ARTHROPATHY 12/24/2009 401.1 ESSENTIAL HYPERTENSION BENIGN 12/24/2009 716.90 ARTHROPATHY 12/24/2009 FATIMA DO, DENISE K 401.1 ESSENTIAL HYPERTENSION BENIGN 12/24/2009 FATIMA DO, DENISE K 716.90 ARTHROPATHY 12/24/2009 FATIMA DO, DENISE K 401.1 ESSENTIAL HYPERTENSION BENIGN 12/24/2009 FATIMA DO, DENISE K 716.90 ARTHROPATHY 12/24/2009 ODILON PARHAM MD 401.1 ESSENTIAL HYPERTENSION BENIGN 12/24/2009 ODILON PARHAM MD 716.90 ARTHROPATHY 12/24/2009 FATIMA DO, DENISE K 401.1 ESSENTIAL HYPERTENSION BENIGN 12/24/2009 FATIMA DO, DENISE K 716.90 ARTHROPATHY 12/24/2009 FATIMA DO, DENISE K 401.1 ESSENTIAL HYPERTENSION BENIGN 12/24/2009 FATIMA DO, DENISE K 716.90 ARTHROPATHY 12/24/2009 MYLA NUÑEZ, CASSI Santos 401.1 ESSENTIAL HYPERTENSION BENIGN 12/24/2009 MYLA NUÑEZ, CASSI Santos 716.90 ARTHROPATHY 12/24/2009 HERMINIO ORDERING BOX OPERATOR, AC T 401.1 ESSENTIAL HYPERTENSION BENIGN 12/24/2009 HERMINIO RAMIREZ, AC T 716.90 ARTHROPATHY 12/24/2009 ODILON PARHAM MD 401.1 ESSENTIAL HYPERTENSION BENIGN 12/24/2009 PRASAD NUÑEZ, ODILON Santos 716.90 ARTHROPATHY 12/24/2009 ODILON PARHAM MD 401.1 ESSENTIAL HYPERTENSION BENIGN 12/24/2009 ODILON PARHAM MD 716.90 ARTHROPATHY 12/24/2009 FATIMA DO, DENISE K 401.1 ESSENTIAL HYPERTENSION BENIGN 12/24/2009 FATIMA DO, DENISE K 716.90 ARTHROPATHY 12/24/2009 FATIMA DO, DENISE K 401.1 ESSENTIAL HYPERTENSION BENIGN 12/24/2009 FATIMA DO, DENISE K 716.90 ARTHROPATHY 12/24/2009 FATIMA DO, DENISE K 401.1 ESSENTIAL HYPERTENSION BENIGN 12/24/2009 FATIMA DO, DENISE K 716.90 ARTHROPATHY 12/24/2009 FATIMA DO, DENISE K 401.1 ESSENTIAL HYPERTENSION BENIGN 12/24/2009 FATIMA DO, DENISE K 716.90 ARTHROPATHY 12/24/2009 FATIMA DO, DENISE K 401.1 ESSENTIAL HYPERTENSION BENIGN 12/24/2009 FATIMA DO, DENISE K 716.90 ARTHROPATHY 12/24/2009 FATIMA DO, DENISE K 401.1 ESSENTIAL HYPERTENSION BENIGN 12/24/2009 FATIMA DO, DENISE K 716.90 ARTHROPATHY 12/24/2009 MADL ORDERING BOX OPERATOR, TAMMY L 401.1 ESSENTIAL HYPERTENSION BENIGN 12/24/2009 MADL ORDERING BOX OPERATOR, TAMMY L 716.90 ARTHROPATHY 12/24/2009 MADL ORDERING BOX OPERATOR, TAMMY L 401.1 ESSENTIAL HYPERTENSION BENIGN 12/24/2009 MADL ORDERING BOX OPERATOR, TAMMY L 716.90 ARTHROPATHY 12/24/2009 MADL ORDERING BOX OPERATOR, TAMMY L 401.1 ESSENTIAL HYPERTENSION BENIGN 12/24/2009 MADL ORDERING BOX OPERATOR, TAMMY L 716.90 ARTHROPATHY 12/24/2009 MADL ORDERING BOX OPERATOR, TAMMY L 401.1 ESSENTIAL HYPERTENSION BENIGN 12/24/2009 MADL ORDERING BOX OPERATOR, TAMMY L 716.90 ARTHROPATHY 12/24/2009 FATIMA DO, DENISE K 401.1 ESSENTIAL HYPERTENSION BENIGN 12/24/2009 FATIMA DO, DENISE K 716.90 ARTHROPATHY 12/24/2009 MADL ORDERING BOX OPERATOR, TAMMY L 401.1 ESSENTIAL HYPERTENSION BENIGN 12/24/2009 MADL ORDERING BOX OPERATOR, TAMMY L 716.90 ARTHROPATHY 12/24/2009 MADL ORDERING BOX OPERATOR, TAMMY L 401.1 ESSENTIAL HYPERTENSION BENIGN 12/24/2009 MADL ORDERING BOX OPERATOR, TAMMY L 716.90 ARTHROPATHY 12/24/2009 FATIMA DO, DENISE K 401.1 ESSENTIAL HYPERTENSION BENIGN 12/24/2009 FATIMA DO, DENISE K 716.90 ARTHROPATHY 12/24/2009 MADL ORDERING BOX OPERATOR, TAMMY L 401.1 ESSENTIAL HYPERTENSION BENIGN 12/24/2009 MADL ORDERING BOX OPERATOR, TAMMY L 716.90 ARTHROPATHY 12/24/2009 MADL ORDERING BOX OPERATOR, TAMMY L 401.1 ESSENTIAL HYPERTENSION BENIGN 12/24/2009 MADL ORDERING BOX OPERATOR, TAMMY L 716.90 ARTHROPATHY 12/24/2009 MADL ORDERING BOX OPERATOR, TAMMY L 401.1 ESSENTIAL HYPERTENSION BENIGN 12/24/2009 MADL ORDERING BOX OPERATOR, TAMMY L 716.90 ARTHROPATHY 12/24/2009 FATIMA DO, DENISE K 401.1 ESSENTIAL HYPERTENSION BENIGN 12/24/2009 FATIMA DO, DENISE K 716.90 ARTHROPATHY 05/12/2010 NOMAN NUÑEZ, LIEN 354.0 CARPAL TUNNEL SYNDROME 05/12/2010 NOMAN NUÑEZ, LIEN 354.0 CARPAL TUNNEL SYNDROME 05/12/2010 LIEN TINEO MD 354.0 CARPAL TUNNEL SYNDROME 05/12/2010 AKUA HERNANDEZ, DENISE K 354.0 CARPAL TUNNEL SYNDROME 05/12/2010 PRASAD NUÑEZ, ODILON Santos 354.0 CARPAL TUNNEL SYNDROME 05/12/2010 354.0 CARPAL TUNNEL SYNDROME 05/12/2010 354.0 CARPAL TUNNEL SYNDROME 05/12/2010 354.0 CARPAL TUNNEL SYNDROME 05/12/2010 354.0 CARPAL TUNNEL SYNDROME 05/12/2010 354.0 CARPAL TUNNEL SYNDROME 05/12/2010 354.0 CARPAL TUNNEL SYNDROME 05/12/2010 354.0 CARPAL TUNNEL SYNDROME 05/12/2010 354.0 CARPAL TUNNEL SYNDROME 05/12/2010 354.0 CARPAL TUNNEL SYNDROME 05/12/2010 DENISE FATIMA DO K 354.0 CARPAL TUNNEL SYNDROME 05/12/2010 FATIMA DO, DENISE K 354.0 CARPAL TUNNEL SYNDROME 05/12/2010 PRASAD NUÑEZ, ODILON Santos 354.0 CARPAL TUNNEL SYNDROME 05/12/2010 FATIMA DO, DENISE K 354.0 CARPAL TUNNEL SYNDROME 05/12/2010 FATIMA DO, DENISE K 354.0 CARPAL TUNNEL SYNDROME 05/12/2010 MYLA NUÑEZ, CASSI Santos 354.0 CARPAL TUNNEL SYNDROME 05/12/2010 HERMINIO RAMIREZ, AC Vann 354.0 CARPAL TUNNEL SYNDROME 05/12/2010 PRASAD NUÑEZ, ODILON Santos 354.0 CARPAL TUNNEL SYNDROME 05/12/2010 PRASAD NUÑEZ, ODILON Santos 354.0 CARPAL TUNNEL SYNDROME 05/12/2010 FATIMA DO, DENISE K 354.0 CARPAL TUNNEL SYNDROME 05/12/2010 FATIMA DO, DENISE K 354.0 CARPAL TUNNEL SYNDROME 05/12/2010 FATIMA DO, DENISE K 354.0 CARPAL TUNNEL SYNDROME 05/12/2010 FATIMA DO, DENISE K 354.0 CARPAL TUNNEL SYNDROME 05/12/2010 FATIMA DO, DENISE K 354.0 CARPAL TUNNEL SYNDROME 05/12/2010 FATIMA DO, DENISE K 354.0 CARPAL TUNNEL SYNDROME 05/12/2010 MADL ORDERING BOX OPERATOR, TAMMY L 354.0 CARPAL TUNNEL SYNDROME 05/12/2010 MADL ORDERING BOX OPERATOR, TAMMY L 354.0 CARPAL TUNNEL SYNDROME 05/12/2010 MADL ORDERING BOX OPERATOR, TAMMY L 354.0 CARPAL TUNNEL SYNDROME 05/12/2010 MADL ORDERING BOX OPERATOR, TAMMY L 354.0 CARPAL TUNNEL SYNDROME 05/12/2010 FATIMA DO, DENISE K 354.0 CARPAL TUNNEL SYNDROME 05/12/2010 MADL ORDERING BOX OPERATOR, TAMMY L 354.0 CARPAL TUNNEL SYNDROME 05/12/2010 MADL ORDERING BOX OPERATOR, TAMMY L 354.0 CARPAL TUNNEL SYNDROME 05/12/2010 FATIMA DO, DENISE K 354.0 CARPAL TUNNEL SYNDROME 05/12/2010 MADL ORDERING BOX OPERATOR, TAMMY L 354.0 CARPAL TUNNEL SYNDROME 05/12/2010 MADL ORDERING BOX OPERATOR, TAMMY L 354.0 CARPAL TUNNEL SYNDROME 05/12/2010 MADL ORDERING BOX OPERATOR, TAMMY L 354.0 CARPAL TUNNEL SYNDROME 05/12/2010 FATIMA DO, DENISE K 354.0 CARPAL TUNNEL SYNDROME 06/20/2010 NOMAN NUÑEZ, LIEN 278.00 OBESITY 06/20/2010 NOMAN NUÑEZ, LIEN 278.00 OBESITY 06/20/2010 NOMAN NUÑEZ, LIEN 278.00 OBESITY 06/20/2010 FATIMA DO, DENISE K 278.00 OBESITY 06/20/2010 PRASAD NUÑEZ, ODILON Santos 278.00 OBESITY 06/20/2010 278.00 OBESITY 06/20/2010 278.00 OBESITY 06/20/2010 278.00 OBESITY 06/20/2010 278.00 OBESITY 06/20/2010 278.00 OBESITY 06/20/2010 278.00 OBESITY 06/20/2010 278.00 OBESITY 06/20/2010 278.00 OBESITY 06/20/2010 278.00 OBESITY 06/20/2010 FATIMA DO, DENISE K 278.00 OBESITY 06/20/2010 FATIMA DO, DENISE K 278.00 OBESITY 06/20/2010 PRASAD NUÑEZ, ODILON Santos 278.00 OBESITY 06/20/2010 FATIMA DO, DENISE K 278.00 OBESITY 06/20/2010 FATIMA DO, DENISE K 278.00 OBESITY 06/20/2010 MYLA NUÑEZ, CASSI Santos 278.00 OBESITY 06/20/2010 AC DURHAM APRN 278.00 OBESITY 06/20/2010 PRASAD NUÑEZ, ODILON Santos 278.00 OBESITY 06/20/2010 ODILON PARHAM MD 278.00 OBESITY 06/20/2010 FATIMA DO, DENISE K 278.00 OBESITY 06/20/2010 FATIMA DO, DENISE K 278.00 OBESITY 06/20/2010 FATIMA DO, DENISE K 278.00 OBESITY 06/20/2010 FATIMA DO, DENISE K 278.00 OBESITY 06/20/2010 FATIMA DO, DENISE K 278.00 OBESITY 06/20/2010 FATIMA DO, DENISE K 278.00 OBESITY 06/20/2010 MADL ORDERING BOX OPERATOR, TAMMY L 278.00 OBESITY 06/20/2010 MADL ORDERING BOX OPERATOR, TAMMY L 278.00 OBESITY 06/20/2010 MADL ORDERING BOX OPERATOR, TAMMY L 278.00 OBESITY 06/20/2010 MADL ORDERING BOX OPERATOR, TAMMY L 278.00 OBESITY 06/20/2010 FATIMA DO, DENISE K 278.00 OBESITY 06/20/2010 MADL ORDERING BOX OPERATOR, TAMMY L 278.00 OBESITY 06/20/2010 MADL ORDERING BOX OPERATOR, TAMMY L 278.00 OBESITY 06/20/2010 FATIMA DO, DENISE K 278.00 OBESITY 06/20/2010 MADL ORDERING BOX OPERATOR, TAMMY L 278.00 OBESITY 06/20/2010 MADL ORDERING BOX OPERATOR, TAMMY L 278.00 OBESITY 06/20/2010 MADL ORDERING BOX OPERATOR, TAMMY L 278.00 OBESITY 06/20/2010 FATIMA DO, DENISE K 278.00 OBESITY 07/10/2010 LIEN TINEO MD 733.92 CHONDROMALACIA 07/10/2010 LIEN TINEO MD 733.92 CHONDROMALACIA 07/10/2010 LIEN TINEO MD 733.92 CHONDROMALACIA 07/10/2010 FATIMA DO DENISE K 733.92 CHONDROMALACIA 07/10/2010 ODILON PARHAM MD 733.92 CHONDROMALACIA 07/10/2010 733.92 CHONDROMALACIA 07/10/2010 733.92 CHONDROMALACIA 07/10/2010 733.92 CHONDROMALACIA 07/10/2010 733.92 CHONDROMALACIA 07/10/2010 733.92 CHONDROMALACIA 07/10/2010 733.92 CHONDROMALACIA 07/10/2010 733.92 CHONDROMALACIA 07/10/2010 733.92 CHONDROMALACIA 07/10/2010 733.92 CHONDROMALACIA 07/10/2010 FATIMA DO DENISE K 733.92 CHONDROMALACIA 07/10/2010 FATIMA DO DENISE K 733.92 CHONDROMALACIA 07/10/2010 ODILON PARHAM MD 733.92 CHONDROMALACIA 07/10/2010 FATIMA DO DENISE K 733.92 CHONDROMALACIA 07/10/2010 FATIMA DO DENISE K 733.92 CHONDROMALACIA 07/10/2010 MYLA NUÑEZ, CASSI Santos 733.92 CHONDROMALACIA 07/10/2010 AC DURHAM APRN 733.92 CHONDROMALACIA 07/10/2010 ODILON PARHAM MD 733.92 CHONDROMALACIA 07/10/2010 ODILON PARHAM MD 733.92 CHONDROMALACIA 07/10/2010 FATIMA DO, DENISE K 733.92 CHONDROMALACIA 07/10/2010 FATIMA DO, DENISE K 733.92 CHONDROMALACIA 07/10/2010 FATIMA DO, DENISE K 733.92 CHONDROMALACIA 07/10/2010 FATIMA DO, DENISE K 733.92 CHONDROMALACIA 07/10/2010 FATIMA DO, DENISE K 733.92 CHONDROMALACIA 07/10/2010 FATIMA DO, DENISE K 733.92 CHONDROMALACIA 07/10/2010 MADL ORDERING BOX OPERATOR, TAMMY L 733.92 CHONDROMALACIA 07/10/2010 MADL ORDERING BOX OPERATOR, TAMMY L 733.92 CHONDROMALACIA 07/10/2010 MADL ORDERING BOX OPERATOR, TAMMY L 733.92 CHONDROMALACIA 07/10/2010 MADL ORDERING BOX OPERATOR, TAMMY L 733.92 CHONDROMALACIA 07/10/2010 FATIMA DO, DENISE K 733.92 CHONDROMALACIA 07/10/2010 MADL ORDERING BOX OPERATOR, TAMMY L 733.92 CHONDROMALACIA 07/10/2010 MADL ORDERING BOX OPERATOR, TAMMY L 733.92 CHONDROMALACIA 07/10/2010 FATIMA DO, DENISE K 733.92 CHONDROMALACIA 07/10/2010 MADL ORDERING BOX OPERATOR, TAMMY L 733.92 CHONDROMALACIA 07/10/2010 MADL ORDERING BOX OPERATOR, TAMMY L 733.92 CHONDROMALACIA 07/10/2010 MADL ORDERING BOX OPERATOR, TAMMY L 733.92 CHONDROMALACIA 07/10/2010 FATIMA DO, DENISE K 733.92 CHONDROMALACIA 09/19/2010 LIEN TINEO MD.5 TARSUS TUNNEL SYNDROME 09/19/2010 LIEN TINEO MD5.27 DJD-SECONDARY 09/19/2010 LIEN TINEO MD.5 TARSUS TUNNEL SYNDROME 09/19/2010 LIEN TINEO MD5.27 DJD-SECONDARY 09/19/2010 LIEN TINEO MD.5 TARSUS TUNNEL SYNDROME 09/19/2010 LIEN TINEO MD5.27 DJD-SECONDARY 09/19/2010 FATIMA DO DENISE K 355.5 TARSUS TUNNEL SYNDROME 09/19/2010 FATIMA DO, DENISE K 715.27 DJD-SECONDARY 09/19/2010 ODILON PARHAM MD 355.5 TARSUS TUNNEL SYNDROME 09/19/2010 ODILON PARHAM MD 715.27 DJD-SECONDARY 09/19/2010 355.5 TARSUS TUNNEL SYNDROME 09/19/2010 715.27 DJD-SECONDARY 09/19/2010 355.5 TARSUS TUNNEL SYNDROME 09/19/2010 715.27 DJD-SECONDARY 09/19/2010 355.5 TARSUS TUNNEL SYNDROME 09/19/2010 715.27 DJD-SECONDARY 09/19/2010 355.5 TARSUS TUNNEL SYNDROME 09/19/2010 715.27 DJD-SECONDARY 09/19/2010 355.5 TARSUS TUNNEL SYNDROME 09/19/2010 715.27 DJD-SECONDARY 09/19/2010 355.5 TARSUS TUNNEL SYNDROME 09/19/2010 715.27 DJD-SECONDARY 09/19/2010 355.5 TARSUS TUNNEL SYNDROME 09/19/2010 715.27 DJD-SECONDARY 09/19/2010 355.5 TARSUS TUNNEL SYNDROME 09/19/2010 715.27 DJD-SECONDARY 09/19/2010 355.5 TARSUS TUNNEL SYNDROME 09/19/2010 715.27 DJD-SECONDARY 09/19/2010 FATIMA DO, DENISE K 355.5 TARSUS TUNNEL SYNDROME 09/19/2010 FATIMA DO, DENISE K 715.27 DJD-SECONDARY 09/19/2010 FATIMA DO, DENISE K 355.5 TARSUS TUNNEL SYNDROME 09/19/2010 FATIMA DO, DENISE K 715.27 DJD-SECONDARY 09/19/2010 ODILON PARHAM MD 355.5 TARSUS TUNNEL SYNDROME 09/19/2010 ODILON PARHAM MD 715.27 DJD-SECONDARY 09/19/2010 FATIMA DO, DENISE K 355.5 TARSUS TUNNEL SYNDROME 09/19/2010 FATIMA DO, DENISE K 715.27 DJD-SECONDARY 09/19/2010 FATIMA DO, DENISE K 355.5 TARSUS TUNNEL SYNDROME 09/19/2010 FATIMA DO, DENISE K 715.27 DJD-SECONDARY 09/19/2010 MYLA NUÑEZ, CASSI Santos 355.5 TARSUS TUNNEL SYNDROME 09/19/2010 MYLA NUÑEZ, CASSI Santos 715.27 DJD-SECONDARY 09/19/2010 AC DURHAM APRN 355.5 TARSUS TUNNEL SYNDROME 09/19/2010 HERMINIO RAMIREZ, AC Vann 715.27 DJD-SECONDARY 09/19/2010 PRASAD NUÑEZ, ODILON Santos 355.5 TARSUS TUNNEL SYNDROME 09/19/2010 PRASAD NUÑEZ, ODILON Santos 715.27 DJD-SECONDARY 09/19/2010 PRASAD NUÑEZ, ODILON Santos 355.5 TARSUS TUNNEL SYNDROME 09/19/2010 ODILON PARHAM MD 715.27 DJD-SECONDARY 09/19/2010 FATIMA DO, DENISE K 355.5 TARSUS TUNNEL SYNDROME 09/19/2010 FATIMA DO, DENISE K 715.27 DJD-SECONDARY 09/19/2010 FATIMA DO, DENISE K 355.5 TARSUS TUNNEL SYNDROME 09/19/2010 FATIMA DO, DENISE K 715.27 DJD-SECONDARY 09/19/2010 FATIMA DO, DENISE K 355.5 TARSUS TUNNEL SYNDROME 09/19/2010 FATIMA DO, DENISE K 715.27 DJD-SECONDARY 09/19/2010 FATIMA DO, DENISE K 355.5 TARSUS TUNNEL SYNDROME 09/19/2010 FATIMA DO, DENISE K 715.27 DJD-SECONDARY 09/19/2010 FATIMA DO, DENISE K 355.5 TARSUS TUNNEL SYNDROME 09/19/2010 FATIMA DO, DENISE K 715.27 DJD-SECONDARY 09/19/2010 FATIMA DO, DENISE K 355.5 TARSUS TUNNEL SYNDROME 09/19/2010 FATIMA DO, DENISE K 715.27 DJD-SECONDARY 09/19/2010 MADL ORDERING BOX OPERATOR, TAMMY L 355.5 TARSUS TUNNEL SYNDROME 09/19/2010 MADL ORDERING BOX OPERATOR, TAMMY L 715.27 DJD-SECONDARY 09/19/2010 MADL ORDERING BOX OPERATOR, TAMMY L 355.5 TARSUS TUNNEL SYNDROME 09/19/2010 MADL ORDERING BOX OPERATOR, TAMMY L 715.27 DJD-SECONDARY 09/19/2010 MADL ORDERING BOX OPERATOR, TAMMY L 355.5 TARSUS TUNNEL SYNDROME 09/19/2010 MADL ORDERING BOX OPERATOR, TAMMY L 715.27 DJD-SECONDARY 09/19/2010 MADL ORDERING BOX OPERATOR, TAMMY L 355.5 TARSUS TUNNEL SYNDROME 09/19/2010 MADL ORDERING BOX OPERATOR, TAMMY L 715.27 DJD-SECONDARY 09/19/2010 FATIMA DO, DENISE K 355.5 TARSUS TUNNEL SYNDROME 09/19/2010 FATIMA DO, DENISE K 715.27 DJD-SECONDARY 09/19/2010 MADL ORDERING BOX OPERATOR, TAMMY L 355.5 TARSUS TUNNEL SYNDROME 09/19/2010 MADL ORDERING BOX OPERATOR, TAMMY L 715.27 DJD-SECONDARY 09/19/2010 MADL ORDERING BOX OPERATOR, TAMMY L 355.5 TARSUS TUNNEL SYNDROME 09/19/2010 MADL ORDERING BOX OPERATOR, TAMMY L 715.27 DJD-SECONDARY 09/19/2010 FATIMA DO, DENISE K 355.5 TARSUS TUNNEL SYNDROME 09/19/2010 FATIMA DO, DENISE K 715.27 DJD-SECONDARY 09/19/2010 MADL ORDERING BOX OPERATOR, TAMMY L 355.5 TARSUS TUNNEL SYNDROME 09/19/2010 MADL ORDERING BOX OPERATOR, TAMMY L 715.27 DJD-SECONDARY 09/19/2010 MADL ORDERING BOX OPERATOR, TAMMY L 355.5 TARSUS TUNNEL SYNDROME 09/19/2010 MADL ORDERING BOX OPERATOR, TAMMY L 715.27 DJD-SECONDARY 09/19/2010 MADL ORDERING BOX OPERATOR, TAMMY L 355.5 TARSUS TUNNEL SYNDROME 09/19/2010 MADL ORDERING BOX OPERATOR, TAMMY L 715.27 DJD-SECONDARY 09/19/2010 FATIMA DO, DENISE K 355.5 TARSUS TUNNEL SYNDROME 09/19/2010 FATIMA DO, DENISE K 715.27 DJD-SECONDARY 11/14/2010 LIEN TINEO MD 465.9 UPPER RESPIRATORY INFECTION 11/14/2010 LIEN TINEO MD 465.9 UPPER RESPIRATORY INFECTION 11/14/2010 LIEN TINEO MD 465.9 UPPER RESPIRATORY INFECTION 11/14/2010 FATIMA DO, DENISE K 465.9 UPPER RESPIRATORY INFECTION 11/14/2010 ODILON PARHAM MD 465.9 UPPER RESPIRATORY INFECTION 11/14/2010 465.9 UPPER RESPIRATORY INFECTION 11/14/2010 465.9 UPPER RESPIRATORY INFECTION 11/14/2010 465.9 UPPER RESPIRATORY INFECTION 11/14/2010 465.9 UPPER RESPIRATORY INFECTION 11/14/2010 465.9 UPPER RESPIRATORY INFECTION 11/14/2010 465.9 UPPER RESPIRATORY INFECTION 11/14/2010 465.9 UPPER RESPIRATORY INFECTION 11/14/2010 465.9 UPPER RESPIRATORY INFECTION 11/14/2010 465.9 UPPER RESPIRATORY INFECTION 11/14/2010 FATIMA DO, DENISE K 465.9 UPPER RESPIRATORY INFECTION 11/14/2010 FATIMA DO, DENISE K 465.9 UPPER RESPIRATORY INFECTION 11/14/2010 PRASAD NUÑEZ, ODILON Santos 465.9 UPPER RESPIRATORY INFECTION 11/14/2010 FATIMA DO, DENISE K 465.9 UPPER RESPIRATORY INFECTION 11/14/2010 FATIMA DO, DENISE K 465.9 UPPER RESPIRATORY INFECTION 11/14/2010 MYLA NUÑEZ, CASSI M 465.9 UPPER RESPIRATORY INFECTION 11/14/2010 AC DURHAM APRN 465.9 UPPER RESPIRATORY INFECTION 11/14/2010 PRASAD NUÑEZ, ODILON Santos 465.9 UPPER RESPIRATORY INFECTION 11/14/2010 PRASAD NUÑEZ, ODILON Santos 465.9 UPPER RESPIRATORY INFECTION 11/14/2010 FATIMA DO, DENISE K 465.9 UPPER RESPIRATORY INFECTION 11/14/2010 FATIMA DO, DENISE K 465.9 UPPER RESPIRATORY INFECTION 11/14/2010 FATIMA DO, DENISE K 465.9 UPPER RESPIRATORY INFECTION 11/14/2010 FATIMA DO, DENISE K 465.9 UPPER RESPIRATORY INFECTION 11/14/2010 FATIMA DO, DENISE K 465.9 UPPER RESPIRATORY INFECTION 11/14/2010 FATIMA DO, DENISE K 465.9 UPPER RESPIRATORY INFECTION 11/14/2010 MADL ORDERING BOX OPERATOR, TAMMY L 465.9 UPPER RESPIRATORY INFECTION 11/14/2010 MADL ORDERING BOX OPERATOR, TAMMY L 465.9 UPPER RESPIRATORY INFECTION 11/14/2010 MADL ORDERING BOX OPERATOR, TAMMY L 465.9 UPPER RESPIRATORY INFECTION 11/14/2010 MADL ORDERING BOX OPERATOR, TAMMY L 465.9 UPPER RESPIRATORY INFECTION 11/14/2010 FATIMA DO, DENISE K 465.9 UPPER RESPIRATORY INFECTION 11/14/2010 MADL ORDERING BOX OPERATOR, TAMMY L 465.9 UPPER RESPIRATORY INFECTION 11/14/2010 MADL ORDERING BOX OPERATOR, TAMMY L 465.9 UPPER RESPIRATORY INFECTION 11/14/2010 FATIMA DO, DENISE K 465.9 UPPER RESPIRATORY INFECTION 11/14/2010 MADL ORDERING BOX OPERATOR, TAMMY L 465.9 UPPER RESPIRATORY INFECTION 11/14/2010 MADL ORDERING BOX OPERATOR, TAMMY L 465.9 UPPER RESPIRATORY INFECTION 11/14/2010 MADL ORDERING BOX OPERATOR, TAMMY L 465.9 UPPER RESPIRATORY INFECTION 11/14/2010 FATIMA DO, DENISE K 465.9 UPPER RESPIRATORY INFECTION 02/24/2011 NOMAN NUÑEZ, LIEN 786.2 cough 02/24/2011 NOMAN NUÑEZ, LIEN 786.2 cough 02/24/2011 LIEN TINEO MD 786.2 cough 02/24/2011 FATIMA DO, DENISE K 786.2 cough 02/24/2011 ODILON PARHAM MD 786.2 cough 02/24/2011 786.2 cough 02/24/2011 786.2 cough 02/24/2011 786.2 cough 02/24/2011 786.2 cough 02/24/2011 786.2 cough 02/24/2011 786.2 cough 02/24/2011 786.2 cough 02/24/2011 786.2 cough 02/24/2011 786.2 cough 02/24/2011 FATIMA DO, DENISE K 786.2 cough 02/24/2011 FATIMA DO, DENISE K 786.2 cough 02/24/2011 ODILON PARHAM MD 786.2 cough 02/24/2011 FATIMA DO, DENISE K 786.2 cough 02/24/2011 FATIMA DO, DENISE K 786.2 cough 02/24/2011 MYLA NUÑEZ, CASSI Santos 786.2 cough 02/24/2011 AC DURHAM APRN 786.2 cough 02/24/2011 ODILON PARHAM MD 786.2 cough 02/24/2011 ODILON PARHAM MD 786.2 cough 02/24/2011 FATIMA DO, DENISE K 786.2 COUGH 02/24/2011 FATIMA DO, DENISE K 786.2 COUGH 02/24/2011 FATIMA DO, DENISE K 786.2 COUGH 02/24/2011 FATIMA DO, DENISE K 786.2 COUGH 02/24/2011 FATIMA DO, DENISE K 786.2 COUGH 02/24/2011 FATIMA DO, DENISE K 786.2 COUGH 02/24/2011 MADL ORDERING BOX OPERATOR, ATMMY L 786.2 COUGH 02/24/2011 MADL ORDERING BOX OPERATOR, TAMMY L 786.2 COUGH 02/24/2011 MADL ORDERING BOX OPERATOR, TAMMY L 786.2 COUGH 02/24/2011 MADL ORDERING BOX OPERATOR, TAMMY L 786.2 COUGH 02/24/2011 FATIMA DO, DENISE K 786.2 COUGH 02/24/2011 MADL ORDERING BOX OPERATOR, TAMMY L 786.2 COUGH 02/24/2011 MADL ORDERING BOX OPERATOR, TAMMY L 786.2 COUGH 02/24/2011 FATIMA DO, DENISE K 786.2 COUGH 02/24/2011 MADL ORDERING BOX OPERATOR, TAMMY L 786.2 COUGH 02/24/2011 MADL ORDERING BOX OPERATOR, TAMMY L 786.2 COUGH 02/24/2011 MADL ORDERING BOX OPERATOR, TAMMY L 786.2 COUGH 02/24/2011 FATIMA DO, DENISE K 786.2 COUGH 06/24/2011 NOMAN NUÑEZ, LIEN 535.50 GASTRITIS UNSPEC 06/24/2011 NOMAN NUÑEZ, LIEN 535.50 GASTRITIS UNSPEC 06/24/2011 NOMAN NUÑEZ, LIEN 535.50 GASTRITIS UNSPEC 06/24/2011 DENISE FATIMA DO K 535.50 GASTRITIS UNSPEC 06/24/2011 PRASAD NUÑEZ, ODILON Santos 535.50 GASTRITIS UNSPEC 06/24/2011 535.50 GASTRITIS UNSPEC 06/24/2011 535.50 GASTRITIS UNSPEC 06/24/2011 535.50 GASTRITIS UNSPEC 06/24/2011 535.50 GASTRITIS UNSPEC 06/24/2011 535.50 GASTRITIS UNSPEC 06/24/2011 535.50 GASTRITIS UNSPEC 06/24/2011 535.50 GASTRITIS UNSPEC 06/24/2011 535.50 GASTRITIS UNSPEC 06/24/2011 535.50 GASTRITIS UNSPEC 06/24/2011 DENISE FATIMA DO K 535.50 GASTRITIS UNSPEC 06/24/2011 DENISE FATIMA DO K 535.50 GASTRITIS UNSPEC 06/24/2011 ODILON PARHAM MD 535.50 GASTRITIS UNSPEC 06/24/2011 DENISE FATIMA DO K 535.50 GASTRITIS UNSPEC 06/24/2011 FATIMA KHADRA HERNANDEZA K 535.50 GASTRITIS UNSPEC 06/24/2011 MYLA NUÑEZ, CASSI Santos 535.50 GASTRITIS UNSPEC 06/24/2011 AC DURHAM APRN 535.50 GASTRITIS UNSPEC 06/24/2011 ODILON PARHAM MD 535.50 GASTRITIS UNSPEC 06/24/2011 ODILON PARHAM MD 535.50 GASTRITIS UNSPEC 06/24/2011 DENISE FATIMA DO K 535.50 GASTRITIS UNSPEC 06/24/2011 KHADRA FATIMA DOA K 535.50 GASTRITIS UNSPEC 06/24/2011 FATIMA DO, DENISE K 535.50 GASTRITIS UNSPEC 06/24/2011 FATIMA DO, DENISE K 535.50 GASTRITIS UNSPEC 06/24/2011 FATIMA DO, DENISE K 535.50 GASTRITIS UNSPEC 06/24/2011 FATIMA DO, DENISE K 535.50 GASTRITIS UNSPEC 06/24/2011 MADL ORDERING BOX OPERATOR, TAMMY L 535.50 GASTRITIS UNSPEC 06/24/2011 MADL ORDERING BOX OPERATOR, TAMMY L 535.50 GASTRITIS UNSPEC 06/24/2011 MADL ORDERING BOX OPERATOR, TAMMY L 535.50 GASTRITIS UNSPEC 06/24/2011 MADL ORDERING BOX OPERATOR, TAMMY L 535.50 GASTRITIS UNSPEC 06/24/2011 FATIMA DO, DENISE K 535.50 GASTRITIS UNSPEC 06/24/2011 MADL ORDERING BOX OPERATOR, TAMMY L 535.50 GASTRITIS UNSPEC 06/24/2011 MADL ORDERING BOX OPERATOR, TAMMY L 535.50 GASTRITIS UNSPEC 06/24/2011 FATIMA DO, DENISE K 535.50 GASTRITIS UNSPEC 06/24/2011 MADL ORDERING BOX OPERATOR, TAMMY L 535.50 GASTRITIS UNSPEC 06/24/2011 MADL ORDERING BOX OPERATOR, TAMMY L 535.50 GASTRITIS UNSPEC 06/24/2011 MADL ORDERING BOX OPERATOR, TAMMY L 535.50 GASTRITIS UNSPEC 06/24/2011 FATIMA DO, DENISE K 535.50 GASTRITIS UNSPEC 09/21/2011 LIEN TINEO MD.1 heartburn 09/21/2011 LIEN TINEO MD.3 FLATULENCE ERUCTATION AND GAS PAIN 09/21/2011 LIEN TINEO MD.06 ABDOMINAL PAIN EPIGASTRIC 09/21/2011 LIEN TINEO MD.1 heartburn 09/21/2011 LIEN TINEO MD.3 FLATULENCE ERUCTATION AND GAS PAIN 09/21/2011 LIEN TINEO MD.06 ABDOMINAL PAIN EPIGASTRIC 09/21/2011 LIEN TINEO MD.1 heartburn 09/21/2011 LIEN TINEO MD.3 FLATULENCE ERUCTATION AND GAS PAIN 09/21/2011 LIEN TINEO MD.06 ABDOMINAL PAIN EPIGASTRIC 09/21/2011 DENISE FATIMA DO 78Jane.1 heartburn 09/21/2011 DENISE FATIMA DO.3 FLATULENCE ERUCTATION AND GAS PAIN 09/21/2011 FATIMA DENISE HERNANDEZ 789.06 ABDOMINAL PAIN EPIGASTRIC 09/21/2011 ODILON PARHAM MD 787.1 heartburn 09/21/2011 ODILON PARHAM MD 787.3 FLATULENCE ERUCTATION AND GAS PAIN 09/21/2011 ODILON PARHAM MD 789.06 ABDOMINAL PAIN EPIGASTRIC 09/21/2011 787.1 heartburn 09/21/2011 787.3 FLATULENCE ERUCTATION AND GAS PAIN 09/21/2011 789.06 ABDOMINAL PAIN EPIGASTRIC 09/21/2011 787.1 heartburn 09/21/2011 787.3 FLATULENCE ERUCTATION AND GAS PAIN 09/21/2011 789.06 ABDOMINAL PAIN EPIGASTRIC 09/21/2011 787.1 heartburn 09/21/2011 787.3 FLATULENCE ERUCTATION AND GAS PAIN 09/21/2011 789.06 ABDOMINAL PAIN EPIGASTRIC 09/21/2011 787.1 heartburn 09/21/2011 787.3 FLATULENCE ERUCTATION AND GAS PAIN 09/21/2011 789.06 ABDOMINAL PAIN EPIGASTRIC 09/21/2011 787.1 heartburn 09/21/2011 787.3 FLATULENCE ERUCTATION AND GAS PAIN 09/21/2011 789.06 ABDOMINAL PAIN EPIGASTRIC 09/21/2011 787.1 heartburn 09/21/2011 787.3 FLATULENCE ERUCTATION AND GAS PAIN 09/21/2011 789.06 ABDOMINAL PAIN EPIGASTRIC 09/21/2011 787.1 heartburn 09/21/2011 787.3 FLATULENCE ERUCTATION AND GAS PAIN 09/21/2011 789.06 ABDOMINAL PAIN EPIGASTRIC 09/21/2011 787.1 heartburn 09/21/2011 787.3 FLATULENCE ERUCTATION AND GAS PAIN 09/21/2011 789.06 ABDOMINAL PAIN EPIGASTRIC 09/21/2011 787.1 heartburn 09/21/2011 787.3 FLATULENCE ERUCTATION AND GAS PAIN 09/21/2011 789.06 ABDOMINAL PAIN EPIGASTRIC 09/21/2011 FATIMA DODENISE 787.1 heartburn 09/21/2011 FATIMA DENISE HERNANDEZ 787.3 FLATULENCE ERUCTATION AND GAS PAIN 09/21/2011 DENISE FATIMA DO K 789.06 ABDOMINAL PAIN EPIGASTRIC 09/21/2011 KHADRA FATIMA DOA K 787.1 heartburn 09/21/2011 KHADRA FATIMA DOA K 787.3 FLATULENCE ERUCTATION AND GAS PAIN 09/21/2011 KHADRA FATIMA DOA K 789.06 ABDOMINAL PAIN EPIGASTRIC 09/21/2011 ODILON PARHAM MD 787.1 heartburn 09/21/2011 ODILON PARHAM MD 787.3 FLATULENCE ERUCTATION AND GAS PAIN 09/21/2011 ODILON PARHAM MD 789.06 ABDOMINAL PAIN EPIGASTRIC 09/21/2011 DENISE FATIMA DO K 787.1 heartburn 09/21/2011 KHADRA FATIMA DOA K 787.3 FLATULENCE ERUCTATION AND GAS PAIN 09/21/2011 DENISE FATIMA DO K 789.06 ABDOMINAL PAIN EPIGASTRIC 09/21/2011 DENISE FATIMA DO K 787.1 heartburn 09/21/2011 DENISE FATIMA DO K 787.3 FLATULENCE ERUCTATION AND GAS PAIN 09/21/2011 DENISE FATIMA DO 789.06 ABDOMINAL PAIN EPIGASTRIC 09/21/2011 CASSI LANZA MD 787.1 heartburn 09/21/2011 CASSI LANZA MD 787.3 FLATULENCE ERUCTATION AND GAS PAIN 09/21/2011 CASSI LANZA MD 789.06 ABDOMINAL PAIN EPIGASTRIC 09/21/2011 AC DURHAM APRN 787.1 heartburn 09/21/2011 AC DURHAM APRN 787.3 FLATULENCE ERUCTATION AND GAS PAIN 09/21/2011 AC DURHAM APRN 789.06 ABDOMINAL PAIN EPIGASTRIC 09/21/2011 ODILON PARHAM MD 787.1 heartburn 09/21/2011 ODILON PARHAM MD 787.3 FLATULENCE ERUCTATION AND GAS PAIN 09/21/2011 ODILON PARHAM MD 789.06 ABDOMINAL PAIN EPIGASTRIC 09/21/2011 ODILON PARHAM MD 787.1 heartburn 09/21/2011 ODILON PARHAM MD 787.3 FLATULENCE ERUCTATION AND GAS PAIN 09/21/2011 ODILON PARHAM MD.06 ABDOMINAL PAIN EPIGASTRIC 09/21/2011 FATIMA DO, DENISE K 787.1 heartburn 09/21/2011 FATIMA DO, DENISE K 787.3 FLATULENCE ERUCTATION AND GAS PAIN 09/21/2011 FATIMA DO, DENISE K 789.06 ABDOMINAL PAIN EPIGASTRIC 09/21/2011 FATIMA DO, DENISE K 787.1 heartburn 09/21/2011 FATIMA DO, DENISE K 787.3 FLATULENCE ERUCTATION AND GAS PAIN 09/21/2011 FATIMA DO, DENISE K 789.06 ABDOMINAL PAIN EPIGASTRIC 09/21/2011 FATIMA DO, DENISE K 787.1 heartburn 09/21/2011 FATIMA DO, DENISE K 787.3 FLATULENCE ERUCTATION AND GAS PAIN 09/21/2011 FATIMA DO, DENISE K 789.06 ABDOMINAL PAIN EPIGASTRIC 09/21/2011 FATIMA DO, DENISE K 787.1 heartburn 09/21/2011 FATIMA DO, DENISE K 787.3 FLATULENCE ERUCTATION AND GAS PAIN 09/21/2011 FATIMA DO, DENISE K 789.06 ABDOMINAL PAIN EPIGASTRIC 09/21/2011 FATIMA DO, DENISE K 787.1 heartburn 09/21/2011 FATIMA DO, DENISE K 787.3 FLATULENCE ERUCTATION AND GAS PAIN 09/21/2011 FATIMA DO, DENISE K 789.06 ABDOMINAL PAIN EPIGASTRIC 09/21/2011 FATIMA DO, DENISE K 787.1 heartburn 09/21/2011 FATIMA DO, DENISE K 787.3 FLATULENCE ERUCTATION AND GAS PAIN 09/21/2011 FATIMA DO, DENISE K 789.06 ABDOMINAL PAIN EPIGASTRIC 09/21/2011 MADL ORDERING BOX OPERATOR, TAMMY L 787.1 heartburn 09/21/2011 MADL ORDERING BOX OPERATOR, TAMMY L 787.3 FLATULENCE ERUCTATION AND GAS PAIN 09/21/2011 MADL ORDERING BOX OPERATOR, TAMMY L 789.06 ABDOMINAL PAIN EPIGASTRIC 09/21/2011 MADL ORDERING BOX OPERATOR, TAMMY L 787.1 heartburn 09/21/2011 MADL ORDERING BOX OPERATOR, TAMMY L 787.3 FLATULENCE ERUCTATION AND GAS PAIN 09/21/2011 MADL ORDERING BOX OPERATOR, TAMMY L 789.06 ABDOMINAL PAIN EPIGASTRIC 09/21/2011 MADL ORDERING BOX OPERATOR, TAMMY L 787.1 heartburn 09/21/2011 MADL ORDERING BOX OPERATOR, TAMMY L 787.3 FLATULENCE ERUCTATION AND GAS PAIN 09/21/2011 MADL ORDERING BOX OPERATOR, TAMMY L 789.06 ABDOMINAL PAIN EPIGASTRIC 09/21/2011 MADL ORDERING BOX OPERATOR, TAMMY L 787.1 heartburn 09/21/2011 MADL ORDERING BOX OPERATOR, TAMMY L 787.3 FLATULENCE ERUCTATION AND GAS PAIN 09/21/2011 MADL ORDERING BOX OPERATOR, TAMMY L 789.06 ABDOMINAL PAIN EPIGASTRIC 09/21/2011 FATIMA DO, DENISE K 787.1 heartburn 09/21/2011 FATIMA DO, DENISE K 787.3 FLATULENCE ERUCTATION AND GAS PAIN 09/21/2011 FATIMA DO, DENISE K 789.06 ABDOMINAL PAIN EPIGASTRIC 09/21/2011 MADL ORDERING BOX OPERATOR, TAMMY L 787.1 heartburn 09/21/2011 MADL ORDERING BOX OPERATOR, TAMMY L 787.3 FLATULENCE ERUCTATION AND GAS PAIN 09/21/2011 MADL ORDERING BOX OPERATOR, TAMMY L 789.06 ABDOMINAL PAIN EPIGASTRIC 09/21/2011 CARLEEL ORDERING BOX OPERATOR, TAMMY L 787.1 heartburn 09/21/2011 MADL ORDERING BOX OPERATOR, TAMMY L 787.3 FLATULENCE ERUCTATION AND GAS PAIN 09/21/2011 CARLEEL ORDERING BOX OPERATOR, TAMMY L 789.06 ABDOMINAL PAIN EPIGASTRIC 09/21/2011 FATIMA DO, DENISE K 787.1 heartburn 09/21/2011 FATIMA DO, DENISE K 787.3 FLATULENCE ERUCTATION AND GAS PAIN 09/21/2011 AFTIMA DO, DENISE K 789.06 ABDOMINAL PAIN EPIGASTRIC 09/21/2011 MADL ORDERING BOX OPERATOR, TAMMY L 787.1 heartburn 09/21/2011 MADL ORDERING BOX OPERATOR, TAMMY L 787.3 FLATULENCE ERUCTATION AND GAS PAIN 09/21/2011 MADL ORDERING BOX OPERATOR, TAMMY L 789.06 ABDOMINAL PAIN EPIGASTRIC 09/21/2011 MADL ORDERING BOX OPERATOR, TAMMY L 787.1 heartburn 09/21/2011 LAM COPELAND APRNA L 787.3 FLATULENCE ERUCTATION AND GAS PAIN 09/21/2011 CARLEEL LAM RAMIREZA L 789.06 ABDOMINAL PAIN EPIGASTRIC 09/21/2011 CARLEEL LAM RAMIREZA L 787.1 heartburn 09/21/2011 CARLEEL LAM RAMIREZA L 787.3 FLATULENCE ERUCTATION AND GAS PAIN 09/21/2011 LAM COPELAND APRNA L 789.06 ABDOMINAL PAIN EPIGASTRIC 09/21/2011 FATIMA DOKHADRAA K 787.1 heartburn 09/21/2011 FATIMA DO DENISE K 787.3 FLATULENCE ERUCTATION AND GAS PAIN 09/21/2011 KHADRA FATIMA DOA K 789.06 ABDOMINAL PAIN EPIGASTRIC 12/07/2011 Ot 242.90 THYROTOX NOS NO CRISIS 12/07/2011 Ot 401.9 HYPERTENSION NOS 12/07/2011 Ot 493.90 ASTHMA, UNSPECIFIED 12/07/2011 Ot 530.81 ESOPHAGEAL REFLUX 12/07/2011 Ot 535.50 UNSP GASTRITIS GASTRODUODENITIS W/O ME 12/07/2011 Ot 553.3 DIAPHRAGMATIC HERNIA 12/07/2011 Ot 716.90 ARTHROPATHY NOS-UNSPEC 12/07/2011 Ot 780.57 UNSPECIFIED SLEEP APNEA 01/07/2012 Ot 244.9 HYPOTHYROIDISM NOS 01/07/2012 Ot 272.4 HYPERLIPIDEMIA NEC/NOS 01/07/2012 Ot 278.01 MORBID OBESITY 01/07/2012 Ot 327.23 OBSTRUCTIVE SLEEP APNEA (ADULT) (PEDIATR 01/07/2012 Ot 401.9 HYPERTENSION NOS 01/07/2012 Ot 486 PNEUMONIA, ORGANISM NOS 01/07/2012 Ot 493.20 CHRONIC OBSTRUCTIVE ASTHMA, NOS 01/07/2012 Ot 530.81 ESOPHAGEAL REFLUX 01/07/2012 Ot 553.3 DIAPHRAGMATIC HERNIA 01/07/2012 Ot 790.29 OTHER ABNORMAL GLUCOSE 01/07/2012 Ot V03.82 PROPHYLACTIC VACC AGAINST STREPTOCOCCUS 01/07/2012 Ot V15.82 HISTORY OF TOBACCO USE 01/07/2012 Ot V85.41 BODY MASS INDEX 40.0-44.9, ADULT 01/15/2012 LIEN TINEO MD 327.23 SLEEP APNEA OBSTRUCTIVE 01/15/2012 LIEN TINEO MD 327.23 SLEEP APNEA OBSTRUCTIVE 01/15/2012 NOMAN NUÑEZ, LIEN 327.23 SLEEP APNEA OBSTRUCTIVE 01/15/2012 FATIMA DO, DENISE K 327.23 SLEEP APNEA OBSTRUCTIVE 01/15/2012 PRASAD NUÑEZ, ODILON Santos 327.23 SLEEP APNEA OBSTRUCTIVE 01/15/2012 327.23 SLEEP APNEA OBSTRUCTIVE 01/15/2012 327.23 SLEEP APNEA OBSTRUCTIVE 01/15/2012 327.23 SLEEP APNEA OBSTRUCTIVE 01/15/2012 327.23 SLEEP APNEA OBSTRUCTIVE 01/15/2012 327.23 SLEEP APNEA OBSTRUCTIVE 01/15/2012 327.23 SLEEP APNEA OBSTRUCTIVE 01/15/2012 327.23 SLEEP APNEA OBSTRUCTIVE 01/15/2012 327.23 SLEEP APNEA OBSTRUCTIVE 01/15/2012 327.23 SLEEP APNEA OBSTRUCTIVE 01/15/2012 FATIMA DO, DENISE K 327.23 SLEEP APNEA OBSTRUCTIVE 01/15/2012 FATIMA DO, DENISE K 327.23 SLEEP APNEA OBSTRUCTIVE 01/15/2012 ODILON PARHAM MD 327.23 SLEEP APNEA OBSTRUCTIVE 01/15/2012 FATIMA DO, DENISE K 327.23 SLEEP APNEA OBSTRUCTIVE 01/15/2012 FATIMA DO, DENISE K 327.23 SLEEP APNEA OBSTRUCTIVE 01/15/2012 CASSI LANZA MD 327.23 SLEEP APNEA OBSTRUCTIVE 01/15/2012 AC DURHAM APRN 327.23 SLEEP APNEA OBSTRUCTIVE 01/15/2012 ODILON PARHAM MD 327.23 SLEEP APNEA OBSTRUCTIVE 01/15/2012 ODILON PARHAM MD 327.23 SLEEP APNEA OBSTRUCTIVE 01/15/2012 FATIMA DO DENISE K 327.23 SLEEP APNEA OBSTRUCTIVE 01/15/2012 FATIMA DO, DENISE K 327.23 SLEEP APNEA OBSTRUCTIVE 01/15/2012 FATIMA DO, DENISE K 327.23 SLEEP APNEA OBSTRUCTIVE 01/15/2012 FATIMA DO, DENISE K 327.23 SLEEP APNEA OBSTRUCTIVE 01/15/2012 FATIMA DO, DENISE K 327.23 SLEEP APNEA OBSTRUCTIVE 01/15/2012 FATIMA DO, DENISE K 327.23 SLEEP APNEA OBSTRUCTIVE 01/15/2012 MADL ORDERING BOX OPERATOR, TAMMY L 327.23 SLEEP APNEA OBSTRUCTIVE 01/15/2012 MADL ORDERING BOX OPERATOR, TAMMY L 327.23 SLEEP APNEA OBSTRUCTIVE 01/15/2012 MADL ORDERING BOX OPERATOR, TAMMY L 327.23 SLEEP APNEA OBSTRUCTIVE 01/15/2012 MADL ORDERING BOX OPERATOR, TAMMY L 327.23 SLEEP APNEA OBSTRUCTIVE 01/15/2012 FATIMA DO, DENISE K 327.23 SLEEP APNEA OBSTRUCTIVE 01/15/2012 MADL ORDERING BOX OPERATOR, TAMMY L 327.23 SLEEP APNEA OBSTRUCTIVE 01/15/2012 MADL ORDERING BOX OPERATOR, TAMMY L 327.23 SLEEP APNEA OBSTRUCTIVE 01/15/2012 FATIMA DO, DENISE K 327.23 SLEEP APNEA OBSTRUCTIVE 01/15/2012 MADL ORDERING BOX OPERATOR, TAMMY L 327.23 SLEEP APNEA OBSTRUCTIVE 01/15/2012 MADL ORDERING BOX OPERATOR, TAMMY L 327.23 SLEEP APNEA OBSTRUCTIVE 01/15/2012 MADL ORDERING BOX OPERATOR, TAMMY L 327.23 SLEEP APNEA OBSTRUCTIVE 01/15/2012 FATIMA DO, DENISE K 327.23 SLEEP APNEA OBSTRUCTIVE 01/22/2012 LIEN TINEO MD 339.89 HEADACHE SYNDROMES 01/22/2012 LIEN TINEO MD 339.89 HEADACHE SYNDROMES 01/22/2012 LIEN TINEO MD 339.89 HEADACHE SYNDROMES 01/22/2012 FATIMA DO DENISE K 339.89 HEADACHE SYNDROMES 01/22/2012 ODILON PARHAM MD 339.89 HEADACHE SYNDROMES 01/22/2012 339.89 HEADACHE SYNDROMES 01/22/2012 339.89 HEADACHE SYNDROMES 01/22/2012 339.89 HEADACHE SYNDROMES 01/22/2012 339.89 HEADACHE SYNDROMES 01/22/2012 339.89 HEADACHE SYNDROMES 01/22/2012 339.89 HEADACHE SYNDROMES 01/22/2012 339.89 HEADACHE SYNDROMES 01/22/2012 339.89 HEADACHE SYNDROMES 01/22/2012 339.89 HEADACHE SYNDROMES 01/22/2012 FATIMA DO DENISE K 339.89 HEADACHE SYNDROMES 01/22/2012 FATIMA DO DENISE K 339.89 HEADACHE SYNDROMES 01/22/2012 ODILON PARHAM MD 339.89 HEADACHE SYNDROMES 01/22/2012 FATIMA DO DENISE K 339.89 HEADACHE SYNDROMES 01/22/2012 FATIMA DO DENISE K 339.89 HEADACHE SYNDROMES 01/22/2012 CASSI LANZA MD 339.89 HEADACHE SYNDROMES 01/22/2012 AC DURHAM APRN 339.89 HEADACHE SYNDROMES 01/22/2012 ODILON PARHAM MD 339.89 HEADACHE SYNDROMES 01/22/2012 ODILON PARHAM MD 339.89 HEADACHE SYNDROMES 01/22/2012 FATIMA DO DENISE K 339.89 HEADACHE SYNDROMES 01/22/2012 FATIMA DO, DENISE K 339.89 HEADACHE SYNDROMES 01/22/2012 FATIMA DO, DENISE K 339.89 HEADACHE SYNDROMES 01/22/2012 FATIMA DO, DENISE K 339.89 HEADACHE SYNDROMES 01/22/2012 FATIMA DO, DENISE K 339.89 HEADACHE SYNDROMES 01/22/2012 FATIMA DO, DENISE K 339.89 HEADACHE SYNDROMES 01/22/2012 MADL ORDERING BOX OPERATOR, TAMMY L 339.89 HEADACHE SYNDROMES 01/22/2012 MADL ORDERING BOX OPERATOR, TAMMY L 339.89 HEADACHE SYNDROMES 01/22/2012 MADL ORDERING BOX OPERATOR, TAMMY L 339.89 HEADACHE SYNDROMES 01/22/2012 MADL ORDERING BOX OPERATOR, TAMMY L 339.89 HEADACHE SYNDROMES 01/22/2012 FATIMA DO, DENISE K 339.89 HEADACHE SYNDROMES 01/22/2012 MADL ORDERING BOX OPERATOR, TAMMY L 339.89 HEADACHE SYNDROMES 01/22/2012 MADL ORDERING BOX OPERATOR, TAMMY L 339.89 HEADACHE SYNDROMES 01/22/2012 FATIMA DO, DENISE K 339.89 HEADACHE SYNDROMES 01/22/2012 MADL ORDERING BOX OPERATOR, TAMMY L 339.89 HEADACHE SYNDROMES 01/22/2012 MADL ORDERING BOX OPERATOR, TAMMY L 339.89 HEADACHE SYNDROMES 01/22/2012 MADL ORDERING BOX OPERATOR, TAMMY L 339.89 HEADACHE SYNDROMES 01/22/2012 FATIMA DO, DENISE K 339.89 HEADACHE SYNDROMES 02/17/2012 LIEN TINEO MD 780.4 dizziness 02/17/2012 LIEN TINEO MD 780.4 dizziness 02/17/2012 LIEN TNIEO MD 780.4 dizziness 02/17/2012 FATIMA DO, DENISE K 780.4 dizziness 02/17/2012 ODILON PARHAM MD 780.4 dizziness 02/17/2012 780.4 dizziness 02/17/2012 780.4 dizziness 02/17/2012 780.4 dizziness 02/17/2012 780.4 dizziness 02/17/2012 780.4 dizziness 02/17/2012 780.4 dizziness 02/17/2012 780.4 dizziness 02/17/2012 780.4 dizziness 02/17/2012 780.4 dizziness 02/17/2012 FATIMA DO, DENISE K 780.4 dizziness 02/17/2012 FATIMA DO, DENISE K 780.4 dizziness 02/17/2012 ODILON PARHAM MD 780.4 dizziness 02/17/2012 FATIMA DO, DENISE K 780.4 dizziness 02/17/2012 FATIMA DO, DENISE K 780.4 dizziness 02/17/2012 MYLA NUÑEZ, CASSI Santos 780.4 dizziness 02/17/2012 AC DURHAM APRN 780.4 dizziness 02/17/2012 ODILON PARHAM MD 780.4 dizziness 02/17/2012 ODILON PARHAM MD 780.4 dizziness 02/17/2012 FATIMA DO, DENISE K 780.4 DIZZINESS 02/17/2012 FATIMA DO, DENISE K 780.4 DIZZINESS 02/17/2012 FATIMA DO, DENISE K 780.4 DIZZINESS 02/17/2012 FATIMA DO, DENISE K 780.4 DIZZINESS 02/17/2012 FATIMA DO, DENISE K 780.4 DIZZINESS 02/17/2012 FATIMA DO, DENISE K 780.4 DIZZINESS 02/17/2012 MADL ORDERING BOX OPERATOR, TAMMY L 780.4 DIZZINESS 02/17/2012 MADL ORDERING BOX OPERATOR, TAMMY L 780.4 DIZZINESS 02/17/2012 MADL ORDERING BOX OPERATOR, TAMMY L 780.4 DIZZINESS 02/17/2012 MADL ORDERING BOX OPERATOR, TAMMY L 780.4 DIZZINESS 02/17/2012 FATIMA DO, DENISE K 780.4 DIZZINESS 02/17/2012 MADL ORDERING BOX OPERATOR, TAMMY L 780.4 DIZZINESS 02/17/2012 MADL ORDERING BOX OPERATOR, TAMMY L 780.4 DIZZINESS 02/17/2012 FATIMA DO, DENISE K 780.4 DIZZINESS 02/17/2012 MADL ORDERING BOX OPERATOR, TAMMY L 780.4 DIZZINESS 02/17/2012 MADL ORDERING BOX OPERATOR, TAMMY L 780.4 DIZZINESS 02/17/2012 MADL ORDERING BOX OPERATOR, TAMMY L 780.4 DIZZINESS 02/17/2012 FATIMA DO, DENISE K 780.4 DIZZINESS 06/10/2012 ODILON PARHAM MD 356.9 POLYNEUROPATHY 06/10/2012 356.9 POLYNEUROPATHY 06/10/2012 356.9 POLYNEUROPATHY 06/10/2012 356.9 POLYNEUROPATHY 06/10/2012 356.9 POLYNEUROPATHY 06/10/2012 356.9 POLYNEUROPATHY 06/10/2012 356.9 POLYNEUROPATHY 06/10/2012 356.9 POLYNEUROPATHY 06/10/2012 356.9 POLYNEUROPATHY 06/10/2012 356.9 POLYNEUROPATHY 06/10/2012 FATIMA DO, DENISE K 356.9 POLYNEUROPATHY 06/10/2012 FATIMA DO, DENISE K 356.9 POLYNEUROPATHY 06/10/2012 PRASAD NUÑEZ, ODILON Santos 356.9 POLYNEUROPATHY 06/10/2012 FATIMA DO, DENISE K 356.9 POLYNEUROPATHY 06/10/2012 FATIMA DO, DENISE K 356.9 POLYNEUROPATHY 06/10/2012 MYLA NUÑEZ, CASSI M 356.9 POLYNEUROPATHY 06/10/2012 HERMINIO RAMIREZ, AC Vann 356.9 POLYNEUROPATHY 06/10/2012 PRASAD NUÑEZ, ODILON Santos 356.9 POLYNEUROPATHY 06/10/2012 PRASAD NUÑEZ, ODILON Santos 356.9 POLYNEUROPATHY 06/10/2012 FATIMA DO, DENISE K 356.9 POLYNEUROPATHY 06/10/2012 FATIMA DO, DENISE K 356.9 POLYNEUROPATHY 06/10/2012 FATIMA DO, DENISE K 356.9 POLYNEUROPATHY 06/10/2012 FATIMA DO, DENISE K 356.9 POLYNEUROPATHY 06/10/2012 FATIMA DO, DNEISE K 356.9 POLYNEUROPATHY 06/10/2012 FATIMA DO, DENISE K 356.9 POLYNEUROPATHY 06/10/2012 MADL ORDERING BOX OPERATOR, TAMMY L 356.9 POLYNEUROPATHY 06/10/2012 MADL ORDERING BOX OPERATOR, TAMMY L 356.9 POLYNEUROPATHY 06/10/2012 MADL ORDERING BOX OPERATOR, TMAMY L 356.9 POLYNEUROPATHY 06/10/2012 MADL ORDERING BOX OPERATOR, TAMMY L 356.9 POLYNEUROPATHY 06/10/2012 FATIMA DO, DENISE K 356.9 POLYNEUROPATHY 06/10/2012 MADL ORDERING BOX OPERATOR, TAMMY L 356.9 POLYNEUROPATHY 06/10/2012 MADL ORDERING BOX OPERATOR, TAMMY L 356.9 POLYNEUROPATHY 06/10/2012 FATIMA DO, DENISE K 356.9 POLYNEUROPATHY 06/10/2012 MADL ORDERING BOX OPERATOR, TAMMY L 356.9 POLYNEUROPATHY 06/10/2012 MADL ORDERING BOX OPERATOR, TAMMY L 356.9 POLYNEUROPATHY 06/10/2012 MADL ORDERING BOX OPERATOR, TAMMY L 356.9 POLYNEUROPATHY 06/10/2012 FATIMA DENISE HERNANDEZ K 356.9 POLYNEUROPATHY 06/22/2012 682.9 CELLULITIS AND ABSCESS OF UNSPECIFIED SITES 06/22/2012 682.9 CELLULITIS AND ABSCESS OF UNSPECIFIED SITES 06/22/2012 682.9 CELLULITIS AND ABSCESS OF UNSPECIFIED SITES 06/22/2012 682.9 CELLULITIS AND ABSCESS OF UNSPECIFIED SITES 06/22/2012 682.9 CELLULITIS AND ABSCESS OF UNSPECIFIED SITES 06/22/2012 682.9 CELLULITIS AND ABSCESS OF UNSPECIFIED SITES 06/22/2012 682.9 CELLULITIS AND ABSCESS OF UNSPECIFIED SITES 06/22/2012 682.9 CELLULITIS AND ABSCESS OF UNSPECIFIED SITES 06/22/2012 682.9 CELLULITIS AND ABSCESS OF UNSPECIFIED SITES 06/22/2012 KHADRA FTAIMA DOA K 682.9 CELLULITIS AND ABSCESS OF UNSPECIFIED SITES 06/22/2012 KHADRA FATIMA DOA K 682.9 CELLULITIS AND ABSCESS OF UNSPECIFIED SITES 06/22/2012 PRASAD NUÑEZ, ODILON Santos 682.9 CELLULITIS AND ABSCESS OF UNSPECIFIED SITES 06/22/2012 DENISE FATIMA DO K 682.9 CELLULITIS AND ABSCESS OF UNSPECIFIED SITES 06/22/2012 DENISE FATIMA DO K 682.9 CELLULITIS AND ABSCESS OF UNSPECIFIED SITES 06/22/2012 MYLA NUÑEZ, CASSI Santos 682.9 CELLULITIS AND ABSCESS OF UNSPECIFIED SITES 06/22/2012 AC DURHAM APRN 682.9 CELLULITIS AND ABSCESS OF UNSPECIFIED SITES 06/22/2012 ODILON PARHAM MD 682.9 CELLULITIS AND ABSCESS OF UNSPECIFIED SITES 06/22/2012 ODILON PARHAM MD 682.9 CELLULITIS AND ABSCESS OF UNSPECIFIED SITES 06/22/2012 KHADRA FATIMA DOA K 682.9 CELLULITIS AND ABSCESS OF UNSPECIFIED SITES 06/22/2012 KHADRA FATIMA DOA K 682.9 CELLULITIS AND ABSCESS OF UNSPECIFIED SITES 06/22/2012 AKUA HERNANDEZ DENISE K 682.9 CELLULITIS AND ABSCESS OF UNSPECIFIED SITES 06/22/2012 KHADRA FATIMA DOA K 682.9 CELLULITIS AND ABSCESS OF UNSPECIFIED SITES 06/22/2012 KHADRA FATIMA DOA K 682.9 CELLULITIS AND ABSCESS OF UNSPECIFIED SITES 06/22/2012 FATIMA DO, DENISE K 682.9 CELLULITIS AND ABSCESS OF UNSPECIFIED SITES 06/22/2012 MADL ORDERING BOX OPERATOR, TAMMY L 682.9 CELLULITIS AND ABSCESS OF UNSPECIFIED SITES 06/22/2012 MADL ORDERING BOX OPERATOR, TAMMY L 682.9 CELLULITIS AND ABSCESS OF UNSPECIFIED SITES 06/22/2012 MADL ORDERING BOX OPERATOR, TAMMY L 682.9 CELLULITIS AND ABSCESS OF UNSPECIFIED SITES 06/22/2012 MADL ORDERING BOX OPERATOR, TAMMY L 682.9 CELLULITIS AND ABSCESS OF UNSPECIFIED SITES 06/22/2012 FATIMA DO, DENISE K 682.9 CELLULITIS AND ABSCESS OF UNSPECIFIED SITES 06/22/2012 MADL ORDERING BOX OPERATOR, TAMMY L 682.9 CELLULITIS AND ABSCESS OF UNSPECIFIED SITES 06/22/2012 MADL ORDERING BOX OPERATOR, TAMMY L 682.9 CELLULITIS AND ABSCESS OF UNSPECIFIED SITES 06/22/2012 FATIMA DO, DENISE K 682.9 CELLULITIS AND ABSCESS OF UNSPECIFIED SITES 06/22/2012 MADL ORDERING BOX OPERATOR, TAMMY L 682.9 CELLULITIS AND ABSCESS OF UNSPECIFIED SITES 06/22/2012 MADL ORDERING BOX OPERATOR, TAMMY L 682.9 CELLULITIS AND ABSCESS OF UNSPECIFIED SITES 06/22/2012 MADL ORDERING BOX OPERATOR, TAMMY L 682.9 CELLULITIS AND ABSCESS OF UNSPECIFIED SITES 06/22/2012 FATIMA DO, DENISE K 682.9 CELLULITIS AND ABSCESS OF UNSPECIFIED SITES 11/10/2012 216.9 BENIGN NEOPLASM OF SKIN SITE UNSPECIFIED 11/10/2012 216.9 BENIGN NEOPLASM OF SKIN SITE UNSPECIFIED 11/10/2012 216.9 BENIGN NEOPLASM OF SKIN SITE UNSPECIFIED 11/10/2012 FATIMA DO DENISE K 216.9 BENIGN NEOPLASM OF SKIN SITE UNSPECIFIED 11/10/2012 FATIMA DO DENISE K 216.9 BENIGN NEOPLASM OF SKIN SITE UNSPECIFIED 11/10/2012 PRASAD NUÑEZ, ODILON Santos 216.9 BENIGN NEOPLASM OF SKIN SITE UNSPECIFIED 11/10/2012 FATIMA DO DENISE K 216.9 BENIGN NEOPLASM OF SKIN SITE UNSPECIFIED 11/10/2012 FATMIA DO DENISE K 216.9 BENIGN NEOPLASM OF SKIN SITE UNSPECIFIED 11/10/2012 CASSI LANZA MD 216.9 BENIGN NEOPLASM OF SKIN SITE UNSPECIFIED 11/10/2012 AC DURHAM APRN 216.9 BENIGN NEOPLASM OF SKIN SITE UNSPECIFIED 11/10/2012 ODILON PARHAM MD 216.9 BENIGN NEOPLASM OF SKIN SITE UNSPECIFIED 11/10/2012 ODILON PARHAM MD 216.9 BENIGN NEOPLASM OF SKIN SITE UNSPECIFIED 11/10/2012 FATIMA DO, DENISE K 216.9 BENIGN NEOPLASM OF SKIN SITE UNSPECIFIED 11/10/2012 FATIMA DO, DENISE K 216.9 BENIGN NEOPLASM OF SKIN SITE UNSPECIFIED 11/10/2012 FATIMA DO, DENISE K 216.9 BENIGN NEOPLASM OF SKIN SITE UNSPECIFIED 11/10/2012 FATIMA DO, DENISE K 216.9 BENIGN NEOPLASM OF SKIN SITE UNSPECIFIED 11/10/2012 FATIMA DO, DENISE K 216.9 BENIGN NEOPLASM OF SKIN SITE UNSPECIFIED 11/10/2012 FATIMA DO, DENISE K 216.9 BENIGN NEOPLASM OF SKIN SITE UNSPECIFIED 11/10/2012 MADL ORDERING BOX OPERATOR, TAMMY L 216.9 BENIGN NEOPLASM OF SKIN SITE UNSPECIFIED 11/10/2012 MADL ORDERING BOX OPERATOR, TAMMY L 216.9 BENIGN NEOPLASM OF SKIN SITE UNSPECIFIED 11/10/2012 MADL ORDERING BOX OPERATOR, TAMMY L 216.9 BENIGN NEOPLASM OF SKIN SITE UNSPECIFIED 11/10/2012 MADL ORDERING BOX OPERATOR, TAMMY L 216.9 BENIGN NEOPLASM OF SKIN SITE UNSPECIFIED 11/10/2012 FATIMA DO, DENISE K 216.9 BENIGN NEOPLASM OF SKIN SITE UNSPECIFIED 11/10/2012 MADL ORDERING BOX OPERATOR, TAMMY L 216.9 BENIGN NEOPLASM OF SKIN SITE UNSPECIFIED 11/10/2012 MADL ORDERING BOX OPERATOR, TAMMY L 216.9 BENIGN NEOPLASM OF SKIN SITE UNSPECIFIED 11/10/2012 FATIMA DO, DENISE K 216.9 BENIGN NEOPLASM OF SKIN SITE UNSPECIFIED 11/10/2012 MADL ORDERING BOX OPERATOR, TAMMY L 216.9 BENIGN NEOPLASM OF SKIN SITE UNSPECIFIED 11/10/2012 MADL ORDERING BOX OPERATOR, TAMMY L 216.9 BENIGN NEOPLASM OF SKIN SITE UNSPECIFIED 11/10/2012 MADL ORDERING BOX OPERATOR, TAMMY L 216.9 BENIGN NEOPLASM OF SKIN SITE UNSPECIFIED 11/10/2012 FATIMA DO, DENISE K 216.9 BENIGN NEOPLASM OF SKIN SITE UNSPECIFIED 11/30/2012 V04.81 FLU SHOT 11/30/2012 FATIMA DO, DENISE K V04.81 FLU SHOT 11/30/2012 FATIMA DO, DENISE K V04.81 FLU SHOT 11/30/2012 PRASAD NUÑEZ, ODILON Santos V04.81 FLU SHOT 11/30/2012 FATIMA DO, DENISE K V04.81 FLU SHOT 11/30/2012 FATIMA DO, DENISE K V04.81 FLU SHOT 11/30/2012 MYLA NUÑEZ, CASSI Santos V04.81 FLU SHOT 11/30/2012 HERMINIO ORDERING BOX OPERATORAC T V04.81 FLU SHOT 11/30/2012 PRASAD NUÑEZ, ODILON Santos V04.81 FLU SHOT 11/30/2012 PRASAD NUÑEZ, ODILON Santos V04.81 FLU SHOT 11/30/2012 FATIMA DO, DENISE K V04.81 FLU SHOT 11/30/2012 FATIMA DO, DENISE K V04.81 FLU SHOT 11/30/2012 FATIMA DO, DENISE K V04.81 FLU SHOT 11/30/2012 FTAIMA DO, DENISE K V04.81 FLU SHOT 11/30/2012 FATIMA DO, DENISE K V04.81 FLU SHOT 11/30/2012 FATIMA DO, DENISE K V04.81 FLU SHOT 11/30/2012 MADL ORDERING BOX OPERATOR, TAMMY L V04.81 FLU SHOT 11/30/2012 MADL ORDERING BOX OPERATOR, TAMMY L V04.81 FLU SHOT 11/30/2012 MADL ORDERING BOX OPERATOR, TAMMY L V04.81 FLU SHOT 11/30/2012 MADL ORDERING BOX OPERATOR, TAMMY L V04.81 FLU SHOT 11/30/2012 FATIMA DO, DENISE K V04.81 FLU SHOT 11/30/2012 MADL ORDERING BOX OPERATOR, TAMMY L V04.81 FLU SHOT 11/30/2012 MADL ORDERING BOX OPERATOR, TAMMY L V04.81 FLU SHOT 11/30/2012 FATIMA DO, DENISE K V04.81 FLU SHOT 11/30/2012 MADL ORDERING BOX OPERATOR, TAMMY L V04.81 FLU SHOT 11/30/2012 MADL ORDERING BOX OPERATOR, TAMMY L V04.81 FLU SHOT 11/30/2012 MADL ORDERING BOX OPERATOR, TAMMY L V04.81 FLU SHOT 11/30/2012 FATIMA DO, DENISE K V04.81 FLU SHOT 12/12/2012 FATIMA DO DENISE K 787.02 NAUSEA ALONE 12/12/2012 FATIMA DO, DENISE K 787.91 DIARRHEA 12/12/2012 FATIMA DO, DENISE K 789.01 ABDOMINAL PAIN RIGHT UPPER QUADRANT 12/12/2012 FATIMA DO, DENISE K 787.02 NAUSEA ALONE 12/12/2012 FATIMA DO DENISE K 787.91 DIARRHEA 12/12/2012 FATIMA DO DENISE K 789.01 ABDOMINAL PAIN RIGHT UPPER QUADRANT 12/12/2012 ODILON PARHAM MD 787.02 NAUSEA ALONE 12/12/2012 ODILON PARHAM MD 78Jane.91 DIARRHEA 12/12/2012 ODILON PARHAM MD9.01 ABDOMINAL PAIN RIGHT UPPER QUADRANT 12/12/2012 FATIMA DO DENISE K 787.02 NAUSEA ALONE 12/12/2012 FATIMA DO DENISE K 787.91 DIARRHEA 12/12/2012 FATIMA DO DENISE K 789.01 ABDOMINAL PAIN RIGHT UPPER QUADRANT 12/12/2012 FATIMA DO DENISE K 787.02 NAUSEA ALONE 12/12/2012 FATIMA DO DENISE K 787.91 DIARRHEA 12/12/2012 FATIMA DO, DENISE K 789.01 ABDOMINAL PAIN RIGHT UPPER QUADRANT 12/12/2012 CASSI LANZA MD 787.02 NAUSEA ALONE 12/12/2012 CASSI LANZA MD 787.91 DIARRHEA 12/12/2012 CASSI LANZA MD 789.01 ABDOMINAL PAIN RIGHT UPPER QUADRANT 12/12/2012 AC DURHAM APRN 787.02 NAUSEA ALONE 12/12/2012 AC DURHAM APRN 787.91 DIARRHEA 12/12/2012 AC DURHAM APRN 789.01 ABDOMINAL PAIN RIGHT UPPER QUADRANT 12/12/2012 ODILON PARHAM MD 787.02 NAUSEA ALONE 12/12/2012 ODILON PARHAM MD.91 DIARRHEA 12/12/2012 ODILON PARHAM MD 789.01 ABDOMINAL PAIN RIGHT UPPER QUADRANT 12/12/2012 ODILON PARHAM MD 787.02 NAUSEA ALONE 12/12/2012 ODILON PARHAM MD.91 DIARRHEA 12/12/2012 ODILON PARHAM MD9.01 ABDOMINAL PAIN RIGHT UPPER QUADRANT 12/12/2012 FATIMA DO, DENISE K 787.02 NAUSEA ALONE 12/12/2012 FATIMA DO, DENISE K 787.91 DIARRHEA 12/12/2012 FATIMA DO, DENISE K 789.01 ABDOMINAL PAIN RIGHT UPPER QUADRANT 12/12/2012 FATIMA DO, DENISE K 787.02 NAUSEA ALONE 12/12/2012 FATIMA DO, DENISE K 787.91 DIARRHEA 12/12/2012 FATIMA DO, DENISE K 789.01 ABDOMINAL PAIN RIGHT UPPER QUADRANT 12/12/2012 FATIMA DO, DENISE K 787.02 NAUSEA ALONE 12/12/2012 FATIMA DO, DENISE K 787.91 DIARRHEA 12/12/2012 FATIMA DO, DENISE K 789.01 ABDOMINAL PAIN RIGHT UPPER QUADRANT 12/12/2012 FATIMA DO, DENISE K 787.02 NAUSEA ALONE 12/12/2012 FATIMA DO, DENISE K 787.91 DIARRHEA 12/12/2012 FATIMA DO, DENISE K 789.01 ABDOMINAL PAIN RIGHT UPPER QUADRANT 12/12/2012 FATIMA DO, DENISE K 787.02 NAUSEA ALONE 12/12/2012 FATIMA DO, DENISE K 787.91 DIARRHEA 12/12/2012 FATIMA DO, DENISE K 789.01 ABDOMINAL PAIN RIGHT UPPER QUADRANT 12/12/2012 FATIMA DO, DENISE K 787.02 NAUSEA ALONE 12/12/2012 FATIMA DO, DENISE K 787.91 DIARRHEA 12/12/2012 FATIMA DO, DENISE K 789.01 ABDOMINAL PAIN RIGHT UPPER QUADRANT 12/12/2012 MADL ORDERING BOX OPERATOR, TAMMY L 787.02 NAUSEA ALONE 12/12/2012 MADL ORDERING BOX OPERATOR, TAMMY L 787.91 DIARRHEA 12/12/2012 MADL ORDERING BOX OPERATOR, TAMMY L 789.01 ABDOMINAL PAIN RIGHT UPPER QUADRANT 12/12/2012 MADL ORDERING BOX OPERATOR, TAMMY L 787.02 NAUSEA ALONE 12/12/2012 MADL ORDERING BOX OPERATOR, TAMMY L 787.91 DIARRHEA 12/12/2012 MADL ORDERING BOX OPERATOR, TAMMY L 789.01 ABDOMINAL PAIN RIGHT UPPER QUADRANT 12/12/2012 MADL ORDERING BOX OPERATOR, TAMMY L 787.02 NAUSEA ALONE 12/12/2012 MADL ORDERING BOX OPERATOR, TAMMY L 787.91 DIARRHEA 12/12/2012 MADL ORDERING BOX OPERATOR, TAMMY L 789.01 ABDOMINAL PAIN RIGHT UPPER QUADRANT 12/12/2012 MADL ORDERING BOX OPERATOR, TAMMY L 787.02 NAUSEA ALONE 12/12/2012 MADL ORDERING BOX OPERATOR, TAMMY L 787.91 DIARRHEA 12/12/2012 MADL ORDERING BOX OPERATOR, TAMMY L 789.01 ABDOMINAL PAIN RIGHT UPPER QUADRANT 12/12/2012 FATIMA DO, DENISE K 787.02 NAUSEA ALONE 12/12/2012 FATIMA DO, DENISE K 787.91 DIARRHEA 12/12/2012 FATIMA DO, DENISE K 789.01 ABDOMINAL PAIN RIGHT UPPER QUADRANT 12/12/2012 MADL ORDERING BOX OPERATOR, TAMMY L 787.02 NAUSEA ALONE 12/12/2012 MADL ORDERING BOX OPERATOR, TAMMY L 787.91 DIARRHEA 12/12/2012 MADL ORDERING BOX OPERATOR, TAMMY L 789.01 ABDOMINAL PAIN RIGHT UPPER QUADRANT 12/12/2012 MADL ORDERING BOX OPERATOR, TAMMY L 787.02 NAUSEA ALONE 12/12/2012 MADL ORDERING BOX OPERATOR, TAMMY L 787.91 DIARRHEA 12/12/2012 MADL ORDERING BOX OPERATOR, TAMMY L 789.01 ABDOMINAL PAIN RIGHT UPPER QUADRANT 12/12/2012 FATIMA DO, DENISE K 787.02 NAUSEA ALONE 12/12/2012 FATIMA DO, DENISE K 787.91 DIARRHEA 12/12/2012 FATIMA DO, DENISE K 789.01 ABDOMINAL PAIN RIGHT UPPER QUADRANT 12/12/2012 MADL ORDERING BOX OPERATOR, TAMMY L 787.02 NAUSEA ALONE 12/12/2012 MADL ORDERING BOX OPERATOR, TAMMY L 787.91 DIARRHEA 12/12/2012 MADL ORDERING BOX OPERATOR, TAMMY L 789.01 ABDOMINAL PAIN RIGHT UPPER QUADRANT 12/12/2012 MADL ORDERING BOX OPERATOR, TAMMY L 787.02 NAUSEA ALONE 12/12/2012 MADL ORDERING BOX OPERATOR, TAMYM L 787.91 DIARRHEA 12/12/2012 MADL ORDERING BOX OPERATOR, TAMMY L 789.01 ABDOMINAL PAIN RIGHT UPPER QUADRANT 12/12/2012 MADL ORDERING BOX OPERATOR, TAMMY L 787.02 NAUSEA ALONE 12/12/2012 MADL ORDERING BOX OPERATOR, TAMMY L 787.91 DIARRHEA 12/12/2012 MADL ORDERING BOX OPERATOR, TAMMY L 789.01 ABDOMINAL PAIN RIGHT UPPER QUADRANT 12/12/2012 FATIMA DO, DENISE K 787.02 NAUSEA ALONE 12/12/2012 FATIMA DO, DENISE K 787.91 DIARRHEA 12/12/2012 FATIMA DO, DENISE K 789.01 ABDOMINAL PAIN RIGHT UPPER QUADRANT 12/28/2012 PRASAD NUÑEZ, ODILON Santos 571.8 OTHER CHRONIC NONALCOHOLIC LIVER DISEASE 12/28/2012 FATIMA DO, DENISE K 571.8 OTHER CHRONIC NONALCOHOLIC LIVER DISEASE 12/28/2012 FATIMA DO, DENISE K 571.8 OTHER CHRONIC NONALCOHOLIC LIVER DISEASE 12/28/2012 MYLA NUÑEZ, CASSI Santos 571.8 OTHER CHRONIC NONALCOHOLIC LIVER DISEASE 12/28/2012 AC DURHAM APRN 571.8 OTHER CHRONIC NONALCOHOLIC LIVER DISEASE 12/28/2012 ODILON PARHAM MD 571.8 FATTY LIVER 12/28/2012 ODILON PARHAM MD 571.8 FATTY LIVER 12/28/2012 FATIMA DO, DENISE K 571.8 FATTY LIVER 12/28/2012 FATIMA DO, DENISE K 571.8 FATTY LIVER 12/28/2012 FATIMA DO, DENISE K 571.8 FATTY LIVER 12/28/2012 FATIMA DO, DENISE K 571.8 FATTY LIVER 12/28/2012 FATIMA DO, DENISE K 571.8 FATTY LIVER 12/28/2012 FATIMA DO, DENISE K 571.8 FATTY LIVER 12/28/2012 MADL ORDERING BOX OPERATOR, TAMMY L 571.8 FATTY LIVER 12/28/2012 MADL ORDERING BOX OPERATOR, TAMMY L 571.8 FATTY LIVER 12/28/2012 MADL ORDERING BOX OPERATOR, TAMMY L 571.8 FATTY LIVER 12/28/2012 MADL ORDERING BOX OPERATOR, TAMMY L 571.8 FATTY LIVER 12/28/2012 FATIMA DO, DENISE K 571.8 FATTY LIVER 12/28/2012 MADL ORDERING BOX OPERATOR, TAMMY L 571.8 FATTY LIVER 12/28/2012 MADL ORDERING BOX OPERATOR, TAMMY L 571.8 FATTY LIVER 12/28/2012 FATIMA DO, DENISE K 571.8 FATTY LIVER 12/28/2012 MADL ORDERING BOX OPERATOR, TAMMY L 571.8 FATTY LIVER 12/28/2012 MADL ORDERING BOX OPERATOR, TAMMY L 571.8 FATTY LIVER 12/28/2012 MADL ORDERING BOX OPERATOR, TAMMY L 571.8 FATTY LIVER 12/28/2012 FATIMA DO, DENISE K 571.8 FATTY LIVER 01/06/2013 FATIMA DO, DENISE K 726.79 TENDONITIS PERONEAL 01/06/2013 FATIMA DO, DENISE K 726.79 TENDONITIS PERONEAL 01/06/2013 MYLA NUÑEZ, CASSI Santos 726.79 TENDONITIS PERONEAL 01/06/2013 AC DURHAM APRN 726.79 TENDONITIS PERONEAL 01/06/2013 ODILON PARHAM MD 726.79 TENDONITIS PERONEAL 01/06/2013 ODILON PARHAM MD 726.79 TENDONITIS PERONEAL 01/06/2013 FATIMA DO, DENISE K 726.79 TENDONITIS PERONEAL 01/06/2013 FATIMA DO, DENISE K 726.79 TENDONITIS PERONEAL 01/06/2013 FATIMA DO, DENISE K 726.79 TENDONITIS PERONEAL 01/06/2013 FATIMA DO, DENISE K 726.79 TENDONITIS PERONEAL 01/06/2013 FATIMA DO, DENISE K 726.79 TENDONITIS PERONEAL 01/06/2013 FATIMA DO, DENISE K 726.79 TENDONITIS PERONEAL 01/06/2013 MADL ORDERING BOX OPERATOR, TAMMY L 726.79 TENDONITIS PERONEAL 01/06/2013 MADL ORDERING BOX OPERATOR, TAMMY L 726.79 TENDONITIS PERONEAL 01/06/2013 MADL ORDERING BOX OPERATOR, TAMMY L 726.79 TENDONITIS PERONEAL 01/06/2013 MADL ORDERING BOX OPERATOR, TAMMY L 726.79 TENDONITIS PERONEAL 01/06/2013 FATIMA DO, DENISE K 726.79 TENDONITIS PERONEAL 01/06/2013 MADL ORDERING BOX OPERATOR, TAMMY L 726.79 TENDONITIS PERONEAL 01/06/2013 MADL ORDERING BOX OPERATOR, TAMMY L 726.79 TENDONITIS PERONEAL 01/06/2013 FATIMA DO, DENISE K 726.79 TENDONITIS PERONEAL 01/06/2013 MADL ORDERING BOX OPERATOR, TAMMY L 726.79 TENDONITIS PERONEAL 01/06/2013 MADL ORDERING BOX OPERATOR, TAMMY L 726.79 TENDONITIS PERONEAL 01/06/2013 MADL ORDERING BOX OPERATOR, TAMMY L 726.79 TENDONITIS PERONEAL 01/06/2013 FATIMA DO, DENISE K 726.79 TENDONITIS PERONEAL 01/16/2013 FATIMA DO, DENISE K V76.51 COLON CANCER SCREENING 01/16/2013 MYLA NUÑEZ, CASSI Santos V76.51 COLON CANCER SCREENING 01/16/2013 AC DURHAM APRN V76.51 COLON CANCER SCREENING 01/16/2013 PRASAD NUÑEZ, ODILON Santos V76.51 COLON CANCER SCREENING 01/16/2013 PRASAD NUÑEZ, ODILON Santos V76.51 COLON CANCER SCREENING 01/16/2013 FATIMA DO, DENISE K V76.51 COLON CANCER SCREENING 01/16/2013 FATIMA DO, DENISE K V76.51 COLON CANCER SCREENING 01/16/2013 FATIMA DO, DENISE K V76.51 COLON CANCER SCREENING 01/16/2013 FATIMA DO, DENISE K V76.51 COLON CANCER SCREENING 01/16/2013 FATIMA DO, DENISE K V76.51 COLON CANCER SCREENING 01/16/2013 FATIMA DO, DENISE K V76.51 COLON CANCER SCREENING 01/16/2013 MADArabella ORDERING BOX OPERATOR, TAMMY L V76.51 COLON CANCER SCREENING 01/16/2013 MADL ORDERING BOX OPERATOR, TAMMY L V76.51 COLON CANCER SCREENING 01/16/2013 MIN ORDERING BOX OPERATOR, TAMMY L V76.51 COLON CANCER SCREENING 01/16/2013 MADL ORDERING BOX OPERATOR, TAMMY L V76.51 COLON CANCER SCREENING 01/16/2013 FATIMA DO, DENISE K V76.51 COLON CANCER SCREENING 01/16/2013 MADL ORDERING BOX OPERATOR, TAMMY L V76.51 COLON CANCER SCREENING 01/16/2013 MADL ORDERING BOX OPERATOR, TAMMY L V76.51 COLON CANCER SCREENING 01/16/2013 FATIMA DO, DENISE K V76.51 COLON CANCER SCREENING 01/16/2013 MADL ORDERING BOX OPERATOR, TAMMY L V76.51 COLON CANCER SCREENING 01/16/2013 IMN ORDERING BOX OPERATOR, TAMMY L V76.51 COLON CANCER SCREENING 01/16/2013 LAM COPELAND APRNA L V76.51 COLON CANCER SCREENING 01/16/2013 AKUA HERNANDEZ DENISE K V76.51 COLON CANCER SCREENING 01/30/2013 MYLA NUÑEZ, CASSI M Ot 211.3 BENIGN NEOPLASM LG BOWEL 01/30/2013 MYLA NUÑEZ, CASSI Santos Ot 562.10 DIVERTICULOSIS COLON (W/O MENT OF HEMORR 04/19/2013 AC DURHAM APRN 604.90 ORCHITIS AND EPIDIDYMITIS UNSPECIFIED 04/19/2013 PRASAD NUÑEZ, ODILON Santos 604.90 ORCHITIS AND EPIDIDYMITIS UNSPECIFIED 04/19/2013 PRASAD NUÑEZ, ODILON Santos 604.90 ORCHITIS AND EPIDIDYMITIS UNSPECIFIED 04/19/2013 FATIMA DO DENISE K 604.90 ORCHITIS AND EPIDIDYMITIS UNSPECIFIED 04/19/2013 AKUA HERNANDEZ DENISE K 604.90 ORCHITIS AND EPIDIDYMITIS UNSPECIFIED 04/19/2013 AKUA HERNANDEZ DENISE K 604.90 ORCHITIS AND EPIDIDYMITIS UNSPECIFIED 04/19/2013 AKUA HERNANDEZ DENISE K 604.90 ORCHITIS AND EPIDIDYMITIS UNSPECIFIED 04/19/2013 FATIMA DO DENISE K 604.90 ORCHITIS AND EPIDIDYMITIS UNSPECIFIED 04/19/2013 FATIMA DO, DENISE K 604.90 ORCHITIS AND EPIDIDYMITIS UNSPECIFIED 04/19/2013 MADArabella RAMIREZ TAMMY L 604.90 ORCHITIS AND EPIDIDYMITIS UNSPECIFIED 04/19/2013 MADL ORDERING BOX OPERATOR, TAMMY L 604.90 ORCHITIS AND EPIDIDYMITIS UNSPECIFIED 04/19/2013 MADL ORDERING BOX OPERATOR, TAMMY L 604.90 ORCHITIS AND EPIDIDYMITIS UNSPECIFIED 04/19/2013 MADL ORDERING BOX OPERATOR, TAMMY L 604.90 ORCHITIS AND EPIDIDYMITIS UNSPECIFIED 04/19/2013 FATIMA DO DENISE K 604.90 ORCHITIS AND EPIDIDYMITIS UNSPECIFIED 04/19/2013 MADL ORDERING BOX OPERATOR, TAMMY L 604.90 ORCHITIS AND EPIDIDYMITIS UNSPECIFIED 04/19/2013 MADL ORDERING BOX OPERATOR, TAMMY L 604.90 ORCHITIS AND EPIDIDYMITIS UNSPECIFIED 04/19/2013 FATIMA DO DENISE K 604.90 ORCHITIS AND EPIDIDYMITIS UNSPECIFIED 04/19/2013 MADL ORDERING BOX OPERATOR, TAMMY L 604.90 ORCHITIS AND EPIDIDYMITIS UNSPECIFIED 04/19/2013 MADL ORDERING BOX OPERATOR, TAMMY L 604.90 ORCHITIS AND EPIDIDYMITIS UNSPECIFIED 04/19/2013 MADL ORDERING BOX OPERATOR, TAMMY L 604.90 ORCHITIS AND EPIDIDYMITIS UNSPECIFIED 04/19/2013 FATIMA DO, DENISE K 604.90 ORCHITIS AND EPIDIDYMITIS UNSPECIFIED 05/10/2013 ODILON PARHAM MD 277.7 DYSMETABOLIC SYNDROME X 05/10/2013 ODILON PARHAM MD 277.7 DYSMETABOLIC SYNDROME X 05/10/2013 FATIMA DO, DENISE K 277.7 DYSMETABOLIC SYNDROME X 05/10/2013 FATIMA DO, DENISE K 277.7 DYSMETABOLIC SYNDROME X 05/10/2013 FATIMA DO, DENISE K 277.7 DYSMETABOLIC SYNDROME X 05/10/2013 FATIMA DO, DENISE K 277.7 DYSMETABOLIC SYNDROME X 05/10/2013 FATIMA DO, DENISE K 277.7 DYSMETABOLIC SYNDROME X 05/10/2013 FATIMA DO, DENISE K 277.7 DYSMETABOLIC SYNDROME X 05/10/2013 MADL ORDERING BOX OPERATOR, TAMMY L 277.7 DYSMETABOLIC SYNDROME X 05/10/2013 MADL ORDERING BOX OPERATOR, TAMMY L 277.7 DYSMETABOLIC SYNDROME X 05/10/2013 MADL ORDERING BOX OPERATOR, TAMMY L 277.7 DYSMETABOLIC SYNDROME X 05/10/2013 MADL ORDERING BOX OPERATOR, TAMMY L 277.7 DYSMETABOLIC SYNDROME X 05/10/2013 FATIMA DO, DENISE K 277.7 DYSMETABOLIC SYNDROME X 05/10/2013 MADL ORDERING BOX OPERATOR, TAMMY L 277.7 DYSMETABOLIC SYNDROME X 05/10/2013 MADL ORDERING BOX OPERATOR, TAMMY L 277.7 DYSMETABOLIC SYNDROME X 05/10/2013 FATIMA DO, DENISE K 277.7 DYSMETABOLIC SYNDROME X 05/10/2013 MADL ORDERING BOX OPERATOR, TAMMY L 277.7 DYSMETABOLIC SYNDROME X 05/10/2013 MADL ORDERING BOX OPERATOR, TAMMY L 277.7 DYSMETABOLIC SYNDROME X 05/10/2013 MADL ORDERING BOX OPERATOR, TAMMY L 277.7 DYSMETABOLIC SYNDROME X 05/10/2013 FATIMA DO, DENISE K 277.7 DYSMETABOLIC SYNDROME X 05/29/2013 FATIMA DO, DENISE K 461.9 SINUSITIS ACUTE 05/29/2013 FATIMA DO, DENISE K 496 COPD 05/29/2013 FATIMA DO, DENISE K V15.09 PERSONAL HISTORY OF OTHER ALLERGY OTHER THAN TO MEDICINAL AGENTS 05/29/2013 FATIMA DO, DENISE K 461.9 SINUSITIS ACUTE 05/29/2013 FATIMA DO, DENISE K 496 COPD 05/29/2013 FATIMA DO, DENISE K V15.09 PERSONAL HISTORY OF OTHER ALLERGY OTHER THAN TO MEDICINAL AGENTS 05/29/2013 FATIMA DO, DENISE K 461.9 SINUSITIS ACUTE 05/29/2013 FATIMA DO, DENISE K 496 COPD 05/29/2013 FATIMA DO, DENISE K V15.09 PERSONAL HISTORY OF OTHER ALLERGY OTHER THAN TO MEDICINAL AGENTS 05/29/2013 FATIMA DO, DENISE K 461.9 SINUSITIS ACUTE 05/29/2013 FATIMA DO, DENISE K 496 COPD 05/29/2013 FATIMA DO, DENISE K V15.09 PERSONAL HISTORY OF OTHER ALLERGY OTHER THAN TO MEDICINAL AGENTS 05/29/2013 FATIMA DO, DENISE K 461.9 SINUSITIS ACUTE 05/29/2013 FATIMA DO, DENISE K 496 COPD 05/29/2013 FATIMA DO, DENISE K V15.09 PERSONAL HISTORY OF OTHER ALLERGY OTHER THAN TO MEDICINAL AGENTS 05/29/2013 FATIMA DO, DENISE K 461.9 SINUSITIS ACUTE 05/29/2013 FATIMA DO, DENISE K 496 COPD 05/29/2013 FATIMA DO, DENISE K V15.09 PERSONAL HISTORY OF OTHER ALLERGY OTHER THAN TO MEDICINAL AGENTS 05/29/2013 MADL ORDERING BOX OPERATOR, TAMMY L 461.9 SINUSITIS ACUTE 05/29/2013 MADL ORDERING BOX OPERATOR, TAMMY L 496 COPD 05/29/2013 MADL ORDERING BOX OPERATOR, TAMMY L V15.09 PERSONAL HISTORY OF OTHER ALLERGY OTHER THAN TO MEDICINAL AGENTS 05/29/2013 MADL ORDERING BOX OPERATOR, TAMMY L 461.9 SINUSITIS ACUTE 05/29/2013 MADL ORDERING BOX OPERATOR, TAMMY L 496 COPD 05/29/2013 MADL ORDERING BOX OPERATOR, TAMMY L V15.09 PERSONAL HISTORY OF OTHER ALLERGY OTHER THAN TO MEDICINAL AGENTS 05/29/2013 MADL ORDERING BOX OPERATOR, TAMMY L 461.9 SINUSITIS ACUTE 05/29/2013 MADL ORDERING BOX OPERATOR, TAMMY L 496 COPD 05/29/2013 MADL ORDERING BOX OPERATOR, TAMMY L V15.09 PERSONAL HISTORY OF OTHER ALLERGY OTHER THAN TO MEDICINAL AGENTS 05/29/2013 MADL ORDERING BOX OPERATOR, TAMMY L 461.9 SINUSITIS ACUTE 05/29/2013 MADL ORDERING BOX OPERATOR, TAMMY L 496 COPD 05/29/2013 MADL ORDERING BOX OPERATOR, TAMMY L V15.09 PERSONAL HISTORY OF OTHER ALLERGY OTHER THAN TO MEDICINAL AGENTS 05/29/2013 FATIMA DO DENISE K 461.9 SINUSITIS ACUTE 05/29/2013 FATIMA DO DENISE K 496 COPD 05/29/2013 FATIMA DO DENISE K V15.09 PERSONAL HISTORY OF OTHER ALLERGY OTHER THAN TO MEDICINAL AGENTS 05/29/2013 MADL ORDERING BOX OPERATOR, TAMMY L 461.9 SINUSITIS ACUTE 05/29/2013 MADL ORDERING BOX OPERATOR, TAMMY L 496 COPD 05/29/2013 MADL ORDERING BOX OPERATOR, TAMMY L V15.09 PERSONAL HISTORY OF OTHER ALLERGY OTHER THAN TO MEDICINAL AGENTS 05/29/2013 MADL ORDERING BOX OPERATOR, TAMMY L 461.9 SINUSITIS ACUTE 05/29/2013 MADL ORDERING BOX OPERATOR, TAMMY L 496 COPD 05/29/2013 MADL ORDERING BOX OPERATOR, TAMMY L V15.09 PERSONAL HISTORY OF OTHER ALLERGY OTHER THAN TO MEDICINAL AGENTS 05/29/2013 FATIMA DO DENISE K 461.9 SINUSITIS ACUTE 05/29/2013 FATIMA DO DENISE K 496 COPD 05/29/2013 FATIMA DO DENISE K V15.09 PERSONAL HISTORY OF OTHER ALLERGY OTHER THAN TO MEDICINAL AGENTS 05/29/2013 MADL ORDERING BOX OPERATOR, TAMMY L 461.9 SINUSITIS ACUTE 05/29/2013 MADL ORDERING BOX OPERATOR, TAMMY L 496 COPD 05/29/2013 MADL ORDERING BOX OPERATOR, TAMMY L V15.09 PERSONAL HISTORY OF OTHER ALLERGY OTHER THAN TO MEDICINAL AGENTS 05/29/2013 MADL ORDERING BOX OPERATOR, TAMMY L 461.9 SINUSITIS ACUTE 05/29/2013 MADL ORDERING BOX OPERATOR, TAMMY L 496 COPD 05/29/2013 MADL ORDERING BOX OPERATOR, TAMMY L V15.09 PERSONAL HISTORY OF OTHER ALLERGY OTHER THAN TO MEDICINAL AGENTS 05/29/2013 MADL ORDERING BOX OPERATOR, TAMMY L 461.9 SINUSITIS ACUTE 05/29/2013 MADL ORDERING BOX OPERATOR, TAMMY L 496 COPD 05/29/2013 MADL ORDERING BOX OPERATOR, TAMMY L V15.09 PERSONAL HISTORY OF OTHER ALLERGY OTHER THAN TO MEDICINAL AGENTS 05/29/2013 FATIMA DO, DENISE K 461.9 SINUSITIS ACUTE 05/29/2013 FATIMA DO, DENISE K 496 COPD 05/29/2013 FATIMA DO, DENISE K V15.09 PERSONAL HISTORY OF OTHER ALLERGY OTHER THAN TO MEDICINAL AGENTS 06/15/2013 FATIMA DO, DENISE K 466.0 BRONCHITIS, ACUTE 06/15/2013 FATIMA DO, DENISE K 466.0 BRONCHITIS, ACUTE 06/15/2013 FATIMA DO, DENISE K 466.0 BRONCHITIS, ACUTE 06/15/2013 FATIMA DO, DENISE K 466.0 BRONCHITIS, ACUTE 06/15/2013 MADL ORDERING BOX OPERATOR, TAMMY L 466.0 BRONCHITIS, ACUTE 06/15/2013 MADL ORDERING BOX OPERATOR, TAMMY L 466.0 BRONCHITIS, ACUTE 06/15/2013 MADL ORDERING BOX OPERATOR, TAMMY L 466.0 BRONCHITIS, ACUTE 06/15/2013 MADL ORDERING BOX OPERATOR, TAMMY L 466.0 BRONCHITIS, ACUTE 06/15/2013 FATIMA DO, DENISE K 466.0 BRONCHITIS, ACUTE 06/15/2013 MADL ORDERING BOX OPERATOR, TAMMY L 466.0 BRONCHITIS, ACUTE 06/15/2013 MADL ORDERING BOX OPERATOR, TAMMY L 466.0 BRONCHITIS, ACUTE 06/15/2013 FATIMA DO, DENISE K 466.0 BRONCHITIS, ACUTE 06/15/2013 MADL ORDERING BOX OPERATOR, TAMMY L 466.0 BRONCHITIS, ACUTE 06/15/2013 MADL ORDERING BOX OPERATOR, TAMMY L 466.0 BRONCHITIS, ACUTE 06/15/2013 MADL ORDERING BOX OPERATOR, TAMMY L 466.0 BRONCHITIS, ACUTE 06/15/2013 FATIMA DO, DENISE K 466.0 BRONCHITIS, ACUTE 10/02/2013 MADL ORDERING BOX OPERATOR, TAMMY L 465.9 UPPER RESPIRATORY INFECTION 10/02/2013 MADL ORDERING BOX OPERATOR, TAMMY L 465.9 UPPER RESPIRATORY INFECTION 10/02/2013 MADL ORDERING BOX OPERATOR, TAMMY L 465.9 UPPER RESPIRATORY INFECTION 10/02/2013 MADL ORDERING BOX OPERATOR, TAMMY L 465.9 UPPER RESPIRATORY INFECTION 10/02/2013 FATIMA DO, DENISE K 465.9 UPPER RESPIRATORY INFECTION 10/02/2013 MADL ORDERING BOX OPERATOR, TAMMY L 465.9 UPPER RESPIRATORY INFECTION 10/02/2013 MADL ORDERING BOX OPERATOR, TAMMY L 465.9 UPPER RESPIRATORY INFECTION 10/02/2013 FATIMA DO DENISE K 465.9 UPPER RESPIRATORY INFECTION 10/02/2013 MADL ORDERING BOX OPERATOR, TAMMY L 465.9 UPPER RESPIRATORY INFECTION 10/02/2013 MADL ORDERING BOX OPERATOR, TAMMY L 465.9 UPPER RESPIRATORY INFECTION 10/02/2013 MADL ORDERING BOX OPERATOR, TAMMY L 465.9 UPPER RESPIRATORY INFECTION 10/02/2013 FATIMA DO DENISE K 465.9 UPPER RESPIRATORY INFECTION 10/31/2013 MADL ORDERING BOX OPERATOR, TAMMY L 719.44 PAIN IN JOINT INVOLVING HAND 10/31/2013 MADL ORDERING BOX OPERATOR, TAMMY L 719.44 PAIN IN JOINT INVOLVING HAND 10/31/2013 MADL ORDERING BOX OPERATOR, TAMMY L 719.44 PAIN IN JOINT INVOLVING HAND 10/31/2013 DENISE FATIMA DO K 719.44 PAIN IN JOINT INVOLVING HAND 10/31/2013 MADL ORDERING BOX OPERATOR, TAMMY L 719.44 PAIN IN JOINT INVOLVING HAND 10/31/2013 MADL ORDERING BOX OPERATOR, TAMMY L 719.44 PAIN IN JOINT INVOLVING HAND 10/31/2013 DENISE FATIMA DO K 719.44 PAIN IN JOINT INVOLVING HAND 10/31/2013 MADL ORDERING BOX OPERATOR, TAMMY L 719.44 PAIN IN JOINT INVOLVING HAND 10/31/2013 MADL ORDERING BOX OPERATOR, TAMMY L 719.44 PAIN IN JOINT INVOLVING HAND 10/31/2013 MADL ORDERING BOX OPERATOR, TAMMY L 719.44 PAIN IN JOINT INVOLVING HAND 10/31/2013 DENISE FATIMA DO K 719.44 PAIN IN JOINT INVOLVING HAND 11/30/2013 MADL ORDERING BOX OPERATOR, TAMMY L 564.00 UNSPECIFIED CONSTIPATION 11/30/2013 MADL ORDERING BOX OPERATOR, TAMMY L V58.69 LONG-TERM (CURRENT) USE OF OTHER MEDICATIONS 11/30/2013 FATIMA DO DENISE K 564.00 UNSPECIFIED CONSTIPATION 11/30/2013 FATIMA DO, DENISE K V58.69 LONG-TERM (CURRENT) USE OF OTHER MEDICATIONS 11/30/2013 MADL ORDERING BOX OPERATOR, TAMMY L 564.00 UNSPECIFIED CONSTIPATION 11/30/2013 MADL ORDERING BOX OPERATOR, TAMMY L V58.69 LONG-TERM (CURRENT) USE OF OTHER MEDICATIONS 11/30/2013 MADL ORDERING BOX OPERATOR, TAMMY L 564.00 UNSPECIFIED CONSTIPATION 11/30/2013 MADL ORDERING BOX OPERATOR, TAMMY L V58.69 LONG-TERM (CURRENT) USE OF OTHER MEDICATIONS 11/30/2013 FATIMA DO DENISE K 564.00 UNSPECIFIED CONSTIPATION 11/30/2013 FATIMA DO DENISE K V58.69 LONG-TERM (CURRENT) USE OF OTHER MEDICATIONS 11/30/2013 MADL ORDERING BOX OPERATOR, TAMMY L 564.00 UNSPECIFIED CONSTIPATION 11/30/2013 MADL ORDERING BOX OPERATOR, TAMMY L V58.69 LONG-TERM (CURRENT) USE OF OTHER MEDICATIONS 11/30/2013 MADL ORDERING BOX OPERATOR, TAMMY L 564.00 UNSPECIFIED CONSTIPATION 11/30/2013 MADL ORDERING BOX OPERATOR, TAMMY L V58.69 LONG-TERM (CURRENT) USE OF OTHER MEDICATIONS 11/30/2013 MADL ORDERING BOX OPERATOR, TAMMY L 564.00 UNSPECIFIED CONSTIPATION 11/30/2013 MADL ORDERING BOX OPERATOR, TAMMY L V58.69 LONG-TERM (CURRENT) USE OF OTHER MEDICATIONS 11/30/2013 KHADRA FATIMA DOA K 564.00 UNSPECIFIED CONSTIPATION 11/30/2013 AKUA HERNANDEZ DENISE K V58.69 LONG-TERM (CURRENT) USE OF OTHER MEDICATIONS 01/12/2014 AC VOGT DO Ot 564.00 UNSPEC CONSTIPATION 01/12/2014 AC VOGT DO Ot 789.01 ABDOMINAL PAIN, RIGHT UPPER QUADRANT 01/30/2014 KHADRA FATIMA DOA K V03.82 PPV23 (PNEUMOVAX) DX 01/30/2014 MADL ORDERING BOX OPERATOR, TAMMY L V03.82 PPV23 (PNEUMOVAX) DX 01/30/2014 MADL ORDERING BOX OPERATOR, TAMMY L V03.82 PPV23 (PNEUMOVAX) DX 01/30/2014 FATIMA DO DENISE K V03.82 PPV23 (PNEUMOVAX) DX 01/30/2014 MADL ORDERING BOX OPERATOR, TAMMY L V03.82 PPV23 (PNEUMOVAX) DX 01/30/2014 MADL ORDERING BOX OPERATOR, TAMMY L V03.82 PPV23 (PNEUMOVAX) DX 01/30/2014 MADL ORDERING BOX OPERATOR, TAMMY L V03.82 PPV23 (PNEUMOVAX) DX 01/30/2014 FTAIMA DO DENISE K V03.82 PPV23 (PNEUMOVAX) DX 03/12/2014 MADL ORDERING BOX OPERATOR, TAMMY L 719.45 PAIN IN JOINT INVOLVING PELVIC REGION AND THIGH 03/12/2014 MADL ORDERING BOX OPERATOR, TAMMY L 719.46 PAIN IN JOINT INVOLVING LOWER LEG 03/12/2014 KHADRA FATIMA DOA K 719.45 PAIN IN JOINT INVOLVING PELVIC REGION AND THIGH 03/12/2014 KHADRA FATIMA DOA K 719.46 PAIN IN JOINT INVOLVING LOWER LEG 03/12/2014 MADL ORDERING BOX OPERATOR, TAMMY L 719.45 PAIN IN JOINT INVOLVING PELVIC REGION AND THIGH 03/12/2014 MADL ORDERING BOX OPERATOR, TAMMY L 719.46 PAIN IN JOINT INVOLVING LOWER LEG 03/12/2014 MADL ORDERING BOX OPERATOR, TAMMY L 719.45 PAIN IN JOINT INVOLVING PELVIC REGION AND THIGH 03/12/2014 MADL ORDERING BOX OPERATOR, TAMMY L 719.46 PAIN IN JOINT INVOLVING LOWER LEG 03/12/2014 MADL ORDERING BOX OPERATOR, TAMMY L 719.45 PAIN IN JOINT INVOLVING PELVIC REGION AND THIGH 03/12/2014 MADL ORDERING BOX OPERATOR, TAMMY L 719.46 PAIN IN JOINT INVOLVING LOWER LEG 03/12/2014 FATIMA DO DENISE K 719.45 PAIN IN JOINT INVOLVING PELVIC REGION AND THIGH 03/12/2014 KHADRA FATIMA DOA K 719.46 PAIN IN JOINT INVOLVING LOWER LEG 04/04/2014 MYLA NUÑEZ, CASSI Santos Ot V72.84 04/25/2014 MADL ORDERING BOX OPERATOR, TAMMY L 381.02 ACUTE MUCOID OTITIS MEDIA 04/25/2014 MADL ORDERING BOX OPERATOR, TAMMY L 719.43 PAIN IN JOINT INVOLVING FOREARM 04/25/2014 MADL ORDERING BOX OPERATOR, TAMMY L 729.1 MYALGIA AND MYOSITIS UNSPECIFIED 04/25/2014 MADL ORDERING BOX OPERATOR, TAMMY L 381.02 ACUTE MUCOID OTITIS MEDIA 04/25/2014 MADL ORDERING BOX OPERATOR, TAMMY L 719.43 PAIN IN JOINT INVOLVING FOREARM 04/25/2014 MADL ORDERING BOX OPERATOR, TAMMY L 729.1 MYALGIA AND MYOSITIS UNSPECIFIED 04/25/2014 MADL ORDERING BOX OPERATOR, TAMMY L 381.02 ACUTE MUCOID OTITIS MEDIA 04/25/2014 MADL ORDERING BOX OPERATOR, TAMMY L 719.43 PAIN IN JOINT INVOLVING FOREARM 04/25/2014 MADL ORDERING BOX OPERATOR, TAMMY L 729.1 MYALGIA AND MYOSITIS UNSPECIFIED 04/25/2014 DENISE FATIMA DO K 381.02 ACUTE MUCOID OTITIS MEDIA 04/25/2014 DENISE FATIMA DO 719.43 PAIN IN JOINT INVOLVING FOREARM 04/25/2014 DENISE FATIMA DO 729.1 MYALGIA AND MYOSITIS UNSPECIFIED 05/07/2014 MYLA NUÑEZ, CASSI Santos Ot 211.3 BENIGN NEOPLASM LG BOWEL 05/07/2014 MYLA NUÑEZ, CASSI Santos Ot 401.9 HYPERTENSION NOS 05/07/2014 MYLA NUÑEZ, CASSI Santos Ot 496 CHR AIRWAY OBSTRUCT NEC 05/07/2014 YMLA NUÑEZ, CASSI Santos Ot 562.10 DIVERTICULOSIS COLON (W/O MENT OF HEMORR 05/07/2014 CASSI LANZA MD Ot 715.90 OSTEOARTHROS NOS-UNSPEC 05/07/2014 CASSI LANZA MD Ot V67.09 SURGERY FOLLOW-UP, OTHER SURGERY 05/08/2014 CARLEEL ORDERING BOX OPERATOR, TAMMY L 720.2 SACROILIITIS NOT ELSEWHERE CLASSIFIED 05/08/2014 MADL ORDERING BOX OPERATOR, TAMMY L 724.3 SCIATICA 05/08/2014 MADL ORDERING BOX OPERATOR, TAMMY L 720.2 SACROILIITIS NOT ELSEWHERE CLASSIFIED 05/08/2014 MADL ORDERING BOX OPERATOR, TAMMY L 724.3 SCIATICA 05/08/2014 DENISE FATIMA DO K 720.2 SACROILIITIS NOT ELSEWHERE CLASSIFIED 05/08/2014 DENISE FATIMA DO K 724.3 SCIATICA 05/22/2014 MADL ORDERING BOX OPERATOR, TAMMY L 724.2 BACK PAIN, LOWER 05/22/2014 MADL ORDERING BOX OPERATOR, TAMMY L 724.2 BACK PAIN, LOWER 05/22/2014 FATIMA DO, DENISE K 724.2 BACK PAIN, LOWER 06/12/2014 MADL ORDERING BOX OPERATOR, TAMMY L 789.01 ABDOMINAL PAIN RIGHT UPPER QUADRANT 06/12/2014 MADL ORDERING BOX OPERATOR, TAMMY L 789.06 ABDOMINAL PAIN EPIGASTRIC 06/12/2014 MADL ORDERING BOX OPERATOR, TAMMY L 789.01 ABDOMINAL PAIN RIGHT UPPER QUADRANT 06/12/2014 MADL ORDERING BOX OPERATOR, TAMMY L 789.06 ABDOMINAL PAIN EPIGASTRIC 06/12/2014 FATIMA DO, DENISE K 789.01 ABDOMINAL PAIN RIGHT UPPER QUADRANT 06/12/2014 FATIMA DENISE K 789.06 ABDOMINAL PAIN EPIGASTRIC 06/27/2014 FATIMA DO DENISE K 536.8 DYSPEPSIA AND OTHER SPECIFIED DISORDERS OF FUNCTION OF STOMACH 06/27/2014 AKUA HERNANDEZ DENISE K 787.02 NAUSEA ALONE 07/09/2014 MYLA NUÑEZ, CASSI Santos Ot 244.9 HYPOTHYROIDISM NOS 07/09/2014 MYLA NUÑEZ, CASSI Santos Ot 401.9 HYPERTENSION NOS 07/09/2014 MYLA NUÑEZ, CASSI Santos Ot 496 CHR AIRWAY OBSTRUCT NEC 07/09/2014 CASSI LANZA MD Ot 530.10 ESOPHAGITIS NOS 07/09/2014 CASSI LANZA MD Ot 535.40 OTH SPECIFIED GASTRITIS,W/O MENTION OF H 07/10/2014 CASSI LANZA MD Ot V72.84 07/10/2014 CASSI LANZA MD Ot V72.84 07/11/2014 CASSI LANZA MD Ot V72.84 07/11/2014 CASSI LANZA MD Ot V72.84 07/25/2014 TAMMY COPELAND [employer] EXAMINER Ot 571.8 07/25/2014 TAMMY COPELAND L [employer] EXAMINER Ot 789.09 08/01/2014 CASSI LANZA MD Ot 305.1 TOBACCO USE DISORDER 08/01/2014 CASSI LANZA MD Ot 575.8 DIS OF GALLBLADDER NEC 08/10/2014 MADL, TAMMY L [employer]AM[employer] Ot 571.8 08/10/2014 MADL, TAMMY L [employer]AM[employer] Ot 789.09 08/18/2014 MADL, TAMMY L [employer] EXAM[employer] Ot 575.8 08/31/2014 MYLA NUÑEZ, CASSI M Ot 575.8 08/31/2014 MYLA NUÑEZ, CASSI M Ot V72.63 08/31/2014 MYLA NUÑEZ, CASSI M Ot V74.8 10/18/2014 Ot 789.01 10/18/2014 Ot 789.01 10/18/2014 Ot V72.84 10/18/2014 Ot 473.9 10/18/2014 Ot 780.4 10/18/2014 JEFERSON LOPEZIA R [employer]AM[employer] Ot 719.47 10/18/2014 ZANDRA LOPEZ R [employer] EXAM[employer] Ot 782.2 10/18/2014 MADL, TAMMY L [employer]AM[employer] Ot 571.8 10/18/2014 MADL, TAMMY L [employer]AM[employer] Ot 787.02 10/18/2014 MADL, TAMMY L [employer] EXAM[employer] Ot 787.91 10/18/2014 MADL, TAMMY L [employer] EXAM[employer] Ot 789.01 10/18/2014 MYLA NUÑEZ, CASSI M Ot V72.84 10/18/2014 MYLA NUÑEZ, CASSI M Ot V72.84 10/18/2014 MYLA NUÑEZ, CASSI M Ot V72.84 10/18/2014 MADL, TAMMY L [employer]AM[employer] Ot 571.8 10/18/2014 MADL, TAMMY L [employer] EXAM[employer] Ot 789.09 10/18/2014 MADL, TAMMY L [employer] EXAM[employer] Ot 575.8 10/18/2014 MYLA NUÑEZ, CASSI M Ot V72.84 10/18/2014 MYLA NÑUEZ, CASSI M Ot 575.8 10/18/2014 MYLA NUÑEZ, CASSI M Ot V72.63 10/18/2014 MYLA NUÑEZ, CASSI M Ot V74.8 10/18/2014 MYLA NUÑEZ, CASSI M Ot 575.8 10/18/2014 MYLA NUÑEZ, CASSI M Ot V72.63 10/18/2014 MYLA NUÑEZ, CASSI M Ot V74.8 10/18/2014 MADL, TAMMY L [employer]AM[employer] Ot 575.8 11/27/2014 Ot 789.01 11/27/2014 Ot 789.01 11/27/2014 Ot V72.84 11/27/2014 Ot 473.9 11/27/2014 Ot 780.4 11/27/2014 JOHNZANDRA R [employer] Ot 719.47 11/27/2014 JOHN ZANDRA R [employer] EXAM[employer]ER Ot 782.2 11/27/2014 MADL, TAMMY L [employer] Ot 571.8 11/27/2014 MADL, TAMMY L [employer]AM[employer] Ot 787.02 11/27/2014 MADL, TAMMY L [employer]AM[employer] Ot 787.91 11/27/2014 MADL, TAMMY L [employer] EXAM[employer] Ot 789.01 11/27/2014 MYLA NUÑEZ, CASSI M Ot V72.84 11/27/2014 MYLA NUÑEZ, CASSI M Ot V72.84 11/27/2014 MYLA NUÑEZ, CASSI M Ot V72.84 11/27/2014 MADL, TAMMY L [employer]AM[employer] Ot 571.8 11/27/2014 MADL, TAMMY L [employer]AM[employer] Ot 789.09 11/27/2014 MADL, TAMMY L [employer] EXAM[employer] Ot 575.8 11/27/2014 MYLA NUÑEZ, CASSI M Ot V72.84 11/27/2014 MYLA NUÑEZ, CASSI M Ot 575.8 11/27/2014 MYLA NUÑEZ, CASSI M Ot V72.63 11/27/2014 MYLA NUÑEZ, CASSI M Ot V74.8 11/27/2014 MYLA NUÑEZ, CASSI M Ot 575.8 11/27/2014 MYLA NUÑEZ, CASSI M Ot V72.63 11/27/2014 MYLA NUÑEZ, CASSI M Ot V74.8 11/27/2014 MADL, TAMMY L [employer] Ot 575.8 11/27/2014 MADL, TAMMY L [employer]AM[employer] Ot 575.8 12/17/2014 MADL, TAMMY L [employer]AM[employer] Ot 575.8 12/17/2014 MYLA NUÑEZ, CASSI Santos Ot 575.8 12/17/2014 MYLA NUÑEZ, CASSI M Ot V72.63 12/17/2014 MYLA NUÑEZ, CASSI M Ot V74.8 12/20/2014 MADL, TAMMY L [employer]AM[employer] Ot 794.5 06/21/2015 Ot 789.01 06/21/2015 Ot 789.01 06/21/2015 Ot V72.84 06/21/2015 Ot 473.9 06/21/2015 Ot 780.4 06/21/2015 ZANDRA LOPEZ R [employer] Ot 719.47 06/21/2015 ZANDRA LOPZE R [employer]AM[employer] Ot 782.2 06/21/2015 MADL, TAMMY L [employer] Ot 571.8 06/21/2015 MADL, TAMMY L [employer] Ot 787.02 06/21/2015 MADL, TAMMY L [employer] Ot 787.91 06/21/2015 MADL, TAMMY L [employer]AM[employer] Ot 789.01 06/21/2015 MYLA NUÑEZ, CASSI Danielle Ot V72.84 06/21/2015 MYLA NUÑEZ, CASSI M Ot V72.84 06/21/2015 MYLA NUÑEZ, CASSI Santos Ot V72.84 06/21/2015 MADL, TAMMY L [employer]AM[employer] Ot 571.8 06/21/2015 MADL, TAMMY L [employer] EXAM[employer] Ot 789.09 06/21/2015 MADL, TAMMY L [employer] EXAM[employer] Ot 575.8 06/21/2015 MYLA NUÑEZ, CASSI Santos Ot V72.84 06/21/2015 MYLA NUÑEZ, CASSI Santos Ot 575.8 06/21/2015 MYLA NUÑEZ, CASSI Santos Ot V72.63 06/21/2015 MYLA NUÑEZ, CASSI Santos Ot V74.8 06/21/2015 MADL, TAMMY L [employer] Ot 794.5 06/21/2015 MADL, TAMMY L [employer]AM[employer] Ot 719.41 06/21/2015 Ot J40 06/21/2015 Ot J44.1 06/21/2015 MADL, TAMMY L [employer] Ot 794.5 07/06/2015 GABRIEL MOREAU DO Ot G47.33 OBSTRUCTIVE SLEEP APNEA (ADULT) (PEDIATR 07/09/2015 GABRIEL MOREAU DO Ot G47.33 OBSTRUCTIVE SLEEP APNEA (ADULT) (PEDIATR 07/10/2015 Ot J40 BRONCHITIS, NOT SPECIFIED ACUTE OR CH 07/10/2015 Ot J44.1 CHRONIC OBSTRUCTIVE PULMONARY DISEASE W 07/15/2015 MADL, TAMMY L [employer]AM[employer] Ot 794.5 ABN THYROID FUNCT STUDY 09/25/2015 Ot J40 BRONCHITIS, NOT SPECIFIED ACUTE OR CH 09/25/2015 Ot J44.1 CHRONIC OBSTRUCTIVE PULMONARY DISEASE W 10/07/2015 Ot 789.01 ABDOMINAL PAIN, RIGHT UPPER QUADRANT 10/07/2015 Ot 789.01 ABDOMINAL PAIN, RIGHT UPPER QUADRANT 10/07/2015 Ot V72.84 EXAM PRE-OPERATIVE NOS 10/07/2015 Ot 473.9 CHRONIC SINUSITIS NOS 10/07/2015 Ot 780.4 DIZZINESS AND GIDDINESS 10/07/2015 ZANDRA LOPEZ [employer] Ot 719.47 JOINT PAIN-ANKLE 10/07/2015 ZANDRA LOPEZ [employer] Ot 782.2 LOCAL SUPRFICIAL SWELLNG 10/07/2015 MADL, TAMMY L [employer] Ot 571.8 CHRONIC LIVER DIS NEC 10/07/2015 MADL, TAMMY L [employer] Ot 787.02 NAUSEA ALONE 10/07/2015 MADL, TAMMY L [employer]AM[employer] Ot 787.91 DIARRHEA 10/07/2015 MADL, TAMMY L [employer] EXAM[employer] Ot 789.01 ABDOMINAL PAIN, RIGHT UPPER QUADRANT 10/07/2015 MYLA NUÑEZ, CASSI Santos Ot V72.84 EXAM PRE-OPERATIVE NOS 10/07/2015 MYLA NUÑEZ, CASSI Santos Ot V72.84 EXAM PRE-OPERATIVE NOS 10/07/2015 MYLA NUÑEZ, CASSI Santos Ot V72.84 EXAM PRE-OPERATIVE NOS 10/07/2015 MADL, TAMMY L [employer] EXAMINER Ot 571.8 CHRONIC LIVER DIS NEC 10/07/2015 MADL, TAMMY L [employer] EXAMINER Ot 789.09 ABDOMINAL PAIN, OTHER SPECIFIED SITE 10/07/2015 MADL, TAMMY L [employer] EXAMINER Ot 575.8 DIS OF GALLBLADDER NEC 10/07/2015 MYLA NUÑEZ, CASSI Santos Ot V72.84 EXAM PRE-OPERATIVE NOS 10/07/2015 MYLA NUÑEZ, CASSI Santos Ot 575.8 DIS OF GALLBLADDER NEC 10/07/2015 MYLA NUÑEZ, CASSI Santos Ot V72.63 PRE-PROCEDURAL LABORATORY EXAMINATION 10/07/2015 MYLA NUÑEZ, CASSI Santos Ot V74.8 SCREEN-BACTERIAL DIS NEC 10/07/2015 LAM COPELANDA L [employer] EX[employer] Ot 794.5 ABN THYROID FUNCT STUDY 10/07/2015 LAM COPELANDA L [employer] EXAMIN[employer] Ot 719.41 JOINT PAIN-SHLDER 10/07/2015 Ot J40 BRONCHITIS, NOT SPECIFIED ACUTE OR CH 10/07/2015 Ot J44.1 CHRONIC OBSTRUCTIVE PULMONARY DISEASE W 11/22/2015 ELIGIO VANG DO Ot E06.3 AUTOIMMUNE THYROIDITIS 12/19/2015 ELIGIO VANG DO Ot E06.3 AUTOIMMUNE THYROIDITIS 01/21/2016 MYLA NUÑEZ, CASSI Santos Ot K21.9 GASTRO-ESOPHAGEAL REFLUX DISEASE WITHOUT 01/21/2016 MYLA NUÑEZ, CASSI Santos Ot Z01.818 ENCOUNTER FOR OTHER PREPROCEDURAL EXAMIN 01/23/2016 Ot 789.01 ABDOMINAL PAIN, RIGHT UPPER QUADRANT 01/23/2016 Ot 789.01 ABDOMINAL PAIN, RIGHT UPPER QUADRANT 01/23/2016 Ot V72.84 EXAM PRE-OPERATIVE NOS 01/23/2016 Ot 473.9 CHRONIC SINUSITIS NOS 01/23/2016 Ot 780.4 DIZZINESS AND GIDDINESS 01/23/2016 ZANDRA LOPEZ [employer] Ot 719.47 JOINT PAIN-ANKLE 01/23/2016 ZANDRA LOPEZ [employer] EXAMIN[employer] Ot 782.2 LOCAL SUPRFICIAL SWELLNG 01/23/2016 MELLY COPELANDWNYA L [employer] EXAM[employer] Ot 571.8 CHRONIC LIVER DIS NEC 01/23/2016 MIN, TAMMY L [employer] EXAMINER Ot 787.02 NAUSEA ALONE 01/23/2016 MADArabella, TAMMY L [employer] EXAMINER Ot 787.91 DIARRHEA 01/23/2016 MIN TAMMY L [employer] EXAMINER Ot 789.01 ABDOMINAL PAIN, RIGHT UPPER QUADRANT 01/23/2016 MYLA NUÑEZ, CASSI Santos Ot V72.84 EXAM PRE-OPERATIVE NOS 01/23/2016 MYLA NUÑEZ, CASSI Santos Ot V72.84 EXAM PRE-OPERATIVE NOS 01/23/2016 MYLA NUÑEZ, CASSI Santos Ot V72.84 EXAM PRE-OPERATIVE NOS 01/23/2016 TAMMY COPELAND L [employer] EXAMIN[employer] Ot 571.8 CHRONIC LIVER DIS NEC 01/23/2016 TAMMY COPELAND L [employer] EXAMINER Ot 789.09 ABDOMINAL PAIN, OTHER SPECIFIED SITE 01/23/2016 LAM COPELANDA L [employer] EXAMIN[employer] Ot 575.8 DIS OF GALLBLADDER NEC 01/23/2016 MYLA NUÑEZ, CASSI Santos Ot V72.84 EXAM PRE-OPERATIVE NOS 01/23/2016 MYAL NUÑEZ, CASSI Santos Ot 575.8 DIS OF GALLBLADDER NEC 01/23/2016 MYLA NUÑEZ, CASSI Santos Ot V72.63 PRE-PROCEDURAL LABORATORY EXAMINATION 01/23/2016 MYLA NUÑEZ, CASSI Santos Ot V74.8 SCREEN-BACTERIAL DIS NEC 01/23/2016 CARLEEArabella TAMMY L [employer] EXAMINER Ot 794.5 ABN THYROID FUNCT STUDY 01/23/2016 MIN TAMMY L [employer] EXAMINER Ot 719.41 JOINT PAIN-SHLDER 01/23/2016 Ot J40 BRONCHITIS, NOT SPECIFIED ACUTE OR CH 01/23/2016 Ot J44.1 CHRONIC OBSTRUCTIVE PULMONARY DISEASE W 01/23/2016 ELIGIO VANG DO Ot E06.3 AUTOIMMUNE THYROIDITIS 01/23/2016 MYLA NUÑEZ, CASSI Santos Ot K29.70 GASTRITIS, UNSPECIFIED, WITHOUT BLEEDING 01/23/2016 MYLA NUÑEZ, CASSI Santos Ot K57.30 DVRTCLOS OF LG INT W/O PERFORATION OR AB 01/23/2016 CASSI LANZA MD Ot K64.8 OTHER HEMORRHOIDS 03/02/2016 MIN TAMMY L [employer] EXAMINER Ot R10.12 LEFT UPPER QUADRANT PAIN 03/24/2016 MIN TAMMY L [employer] EXAMINER Ot R10.12 LEFT UPPER QUADRANT PAIN 04/02/2016 ALMA BLANKENSHIP MD Ot G47.33 OBSTRUCTIVE SLEEP APNEA (ADULT) (PEDIATR 04/02/2016 ALMA BLANKENSHIP MD Ot I51.9 HEART DISEASE, UNSPECIFIED 04/02/2016 ALMA BLANKENSHIP MD Ot R06.02 SHORTNESS OF BREATH 04/02/2016 ALMA BLANKENSHIP MD Ot R07.9 CHEST PAIN, UNSPECIFIED 04/02/2016 ALMA BLANKENSHIP MD Ot G47.33 OBSTRUCTIVE SLEEP APNEA (ADULT) (PEDIATR 04/02/2016 ALMA BLANKENSHIP MD Ot I51.9 HEART DISEASE, UNSPECIFIED 04/02/2016 ALMA BLANKENSHIP MD Ot R06.02 SHORTNESS OF BREATH 04/02/2016 ALMA BLANKENSHIP MD Ot R07.9 CHEST PAIN, UNSPECIFIED 04/08/2016 ALMA BLANKENSHIP MD Ot G47.33 OBSTRUCTIVE SLEEP APNEA (ADULT) (PEDIATR 04/08/2016 ALMA BLANKENSHIP MD Ot I51.9 HEART DISEASE, UNSPECIFIED 04/08/2016 ALMA BLANKENSHIP MD Ot R06.02 SHORTNESS OF BREATH 04/08/2016 ALMA BLANKENSHIP MD Ot R07.9 CHEST PAIN, UNSPECIFIED 04/14/2016 ALMA BLANKENSHIP MD Ot G47.33 OBSTRUCTIVE SLEEP APNEA (ADULT) (PEDIATR 04/14/2016 ALMA BLANKENSHIP MD Ot I51.9 HEART DISEASE, UNSPECIFIED 04/14/2016 ALMA BLANKENSHIP MD Ot M19.90 UNSPECIFIED OSTEOARTHRITIS, UNSPECIFIED 04/14/2016 ALMA BLANKENSHIP MD Ot M54.9 DORSALGIA, UNSPECIFIED 04/14/2016 ALMA BLANKENSHIP MD Ot R06.02 SHORTNESS OF BREATH 04/14/2016 ALMA BLANKENSHIP MD Ot R07.9 CHEST PAIN, UNSPECIFIED 04/22/2016 ALMA BLANKENSHIP MD Ot E78.5 HYPERLIPIDEMIA, UNSPECIFIED 04/22/2016 ALMA BLANKENSHIP MD Ot G47.33 OBSTRUCTIVE SLEEP APNEA (ADULT) (PEDIATR 04/22/2016 ALMA BLANKENSHIP MD Ot I10 ESSENTIAL (PRIMARY) HYPERTENSION 04/22/2016 ALMA BLANKENSHIP MD Ot I25.10 ATHSCL HEART DISEASE OF [place] CORONARY 04/22/2016 ALMA BLANKENSHIP MD Ot J45.909 UNSPECIFIED ASTHMA, UNCOMPLICATED 04/22/2016 ALMA BLANKENSHIP MD Ot R07.89 OTHER CHEST PAIN 04/22/2016 ALMA BLANKENSHIP MD Ot R94.39 ABNORMAL RESULT OF OTHER CARDIOVASCULAR 04/22/2016 ALMA BLANKENSHIP MD Ot Z79.899 OTHER EXPERIMENTAL WELDER (CURRENT) DRUG THERAPY 04/22/2016 ALMA BLANKENSHIP MD Ot Z87.891 PERSONAL HISTORY OF NICOTINE DEPENDENCE 04/29/2016 TAMMY COPELAND L [employer] EXAMINER Ot R10.12 LEFT UPPER QUADRANT PAIN 04/30/2016 CARLEELTAMMY [employer] EXAMINER Ot M19.012 PRIMARY OSTEOARTHRITIS, LEFT SHOULDER 04/30/2016 CARLEETAMMY Bell [employer] EXAMINER Ot M75.52 BURSITIS OF LEFT SHOULDER 04/30/2016 ALMA BLANKENSHIP MD Ot E78.5 HYPERLIPIDEMIA, UNSPECIFIED 04/30/2016 ALMA BLANKENSHIP MD Ot G47.33 OBSTRUCTIVE SLEEP APNEA (ADULT) (PEDIATR 04/30/2016 ALMA BLANKENSHIP MD Ot I10 ESSENTIAL (PRIMARY) HYPERTENSION 04/30/2016 ALMA BLANKENSHIP MD Ot I25.10 ATHSCL HEART DISEASE OF [place] CORONARY 04/30/2016 ALMA BLANKENSHIP MD Ot J45.909 UNSPECIFIED ASTHMA, UNCOMPLICATED 04/30/2016 ALMA BLANKENSHIP MD Ot R07.89 OTHER CHEST PAIN 04/30/2016 ALMA BLANKENSHIP MD Ot R94.39 ABNORMAL RESULT OF OTHER CARDIOVASCULAR 04/30/2016 ALMA BLANKENSHIP MD Ot Z79.899 OTHER SENIOR CARE (CURRENT) DRUG THERAPY 04/30/2016 ALMA BLANKENSHIP MD Ot Z87.891 PERSONAL HISTORY OF NICOTINE DEPENDENCE 05/01/2016 ALMA BLANKENSHIP MD Ot G47.33 OBSTRUCTIVE SLEEP APNEA (ADULT) (PEDIATR 05/01/2016 ALMA BLANKENSHIP MD Ot I51.9 HEART DISEASE, UNSPECIFIED 05/01/2016 ALMA BLANKENSHIP MD Ot R06.02 SHORTNESS OF BREATH 05/01/2016 ALMA BLANKENSHIP MD Ot R07.9 CHEST PAIN, UNSPECIFIED 05/02/2016 ALMA BLANKENSHIP MD Ot E78.5 HYPERLIPIDEMIA, UNSPECIFIED 05/02/2016 ALMA BLANKENSHIP MD Ot G47.33 OBSTRUCTIVE SLEEP APNEA (ADULT) (PEDIATR 05/02/2016 ALMA BLANKENSHIP MD Ot I10 ESSENTIAL (PRIMARY) HYPERTENSION 05/02/2016 ALMA BLANKENSHIP MD Ot I25.10 ATHSCL HEART DISEASE OF [place] CORONARY 05/02/2016 ALMA BLANKENSHIP MD Ot J45.909 UNSPECIFIED ASTHMA, UNCOMPLICATED 05/02/2016 ALMA BLANKENSHIP MD Ot R07.89 OTHER CHEST PAIN 05/02/2016 ALMA BLANKENSHIP MD Ot R94.39 ABNORMAL RESULT OF OTHER CARDIOVASCULAR 05/02/2016 ALMA BLANKENSHIP MD Ot Z79.899 OTHER SENIOR CARE (CURRENT) DRUG THERAPY 05/02/2016 ALMA BLANKENSHIP MD, Ot Z87.891 PERSONAL HISTORY OF NICOTINE DEPENDENCE 05/05/2016 ALMA BLANKENSHIP MD Ot G47.33 OBSTRUCTIVE SLEEP APNEA (ADULT) (PEDIATR 05/05/2016 ALMA BLANKENSHIP MD Ot I51.9 HEART DISEASE, UNSPECIFIED 05/05/2016 ALMA BLANKENSHIP MD Ot R06.02 SHORTNESS OF BREATH 05/05/2016 ALMA BLANKENSHIP MD Ot R07.9 CHEST PAIN, UNSPECIFIED 05/05/2016 TAMMY COPELAND [employer] EXAMINER Ot R10.12 LEFT UPPER QUADRANT PAIN 05/06/2016 ALMA BLANKENSHIP MD, Ot G47.33 OBSTRUCTIVE SLEEP APNEA (ADULT) (PEDIATR 05/06/2016 ALMA BLANKENSHIP MD Ot I51.9 HEART DISEASE, UNSPECIFIED 05/06/2016 ALMA BLANKENSHIP MD Ot M19.90 UNSPECIFIED OSTEOARTHRITIS, UNSPECIFIED 05/06/2016 ALMA BLANKENSHIP MD Ot M54.9 DORSALGIA, UNSPECIFIED 05/06/2016 ALMA BLANKENSHIP MD Ot R06.02 SHORTNESS OF BREATH 05/06/2016 ALMA BLANKENSHIP MD Ot R07.9 CHEST PAIN, UNSPECIFIED 05/21/2016 TAMMY COPELAND [employer] EXAMINER Ot M19.012 PRIMARY OSTEOARTHRITIS, LEFT SHOULDER 05/21/2016 TAMMY COPELAND [employer] EXAMINER Ot M75.52 BURSITIS OF LEFT SHOULDER 05/22/2016 TAE RUTH MD Ot M75.102 UNSP ROTATR-CUFF TEAR/RUPTR OF LEFT SHOU 05/22/2016 TAE RUTH MD Ot Z01.818 ENCOUNTER FOR OTHER PREPROCEDURAL EXAMIN 05/22/2016 TAE RUTH MD Ot Z11.2 ENCOUNTER FOR SCREENING FOR OTHER BACTER 05/27/2016 TAE RUTH MD Ot M75.102 UNSP ROTATR-CUFF TEAR/RUPTR OF LEFT SHOU 05/27/2016 TAE RUTH MD Ot Z01.818 ENCOUNTER FOR OTHER PREPROCEDURAL EXAMIN 05/27/2016 FARAZ NUÑEZ, TAE El Ot Z11.2 ENCOUNTER FOR SCREENING FOR OTHER BACTER 05/28/2016 ALMA BLANKENSHIP MD Ot G47.33 OBSTRUCTIVE SLEEP APNEA (ADULT) (PEDIATR 05/28/2016 ALMA BLANKENSHIP MD Ot I51.9 HEART DISEASE, UNSPECIFIED 05/28/2016 ALMA BLANKENSHIP MD Ot M19.90 UNSPECIFIED OSTEOARTHRITIS, UNSPECIFIED 05/28/2016 ALMA BLANKENSHIP MD Ot M54.9 DORSALGIA, UNSPECIFIED 05/28/2016 ALMA BLANKENSHIP MD Ot R06.02 SHORTNESS OF BREATH 05/28/2016 ALMA BLANKENSHIP MD, Ot R07.9 CHEST PAIN, UNSPECIFIED 05/28/2016 TAMMY COPELAND Ot M19.012 PRIMARY OSTEOARTHRITIS, LEFT SHOULDER 05/28/2016 TAMMY COPELAND Ot M75.52 BURSITIS OF LEFT SHOULDER Procedures Code Description [place] [address] ROUTINE VENIPUNCTURE 02/09/2012 86714 XRAY CHEST 2 VIEW 02/09/2012 48941 TSH 02/10/2012 [id number] COMPLETE BLOOD COUNT NO DIFF (CBC Result) 02/10/2012 94378 DIFFERENTIAL WBC COUNT (CBC DIFF RESULT) 02/10/2012 88440 IGE 02/10/2012 7664671 BERMUDA GRASS 02/12/2012 6746546 DOG DANDER [id number] CAT DANDER [id number] [place] COMMON-"SHORT RAGWEED" 02/12/2012 7217064 [place] WHITE 02/12/2012 3973102 DUST MITE (DERM.FARINE D2) 02/12/2012 0154237 MARSHELDER ROUGH 02/12/2012 0802374 [place] BLUE GRASS 02/12/2012 1550585 IZA GRASS IGE 02/12/2012 7199636 [place] NEW ZEALANDER 02/12/2012 6116960 CLADOSPORIUM MOLD 02/12/2012 9389760 ALTERNARIA TENUIS 02/12/2012 4554084 [place] 01538 CBC W/MANUAL DIF (order) 02/18/2012 34595 RAST ALLERGY PANEL 02/18/2012 61215 SLEEP STUDY 02/[address] HEAD/BRAIN W/O DYE 02/24/[address] SINUS W/O CONTRAST 02/24/2012 20476 OXIMETRY 2011 52098 ROUTINE VENIPUNCTURE 06/10/2012 15807 A1C (IN-HOUSE) 71347 BMP 06/10/2012 5478145 GFR CALC (RESULT ONLY) 06/10/2012 08726 VIT B 12 2012 92000 FOLATE 2012 71694 TSH 06/10/2012 PODIA Opal Reese Allergy, Adiel Mims 08/30/2012 Podiatry Opal Resee 10/28/2012 89132 A1C (IN-HOUSE) G0008 FLU ADMINISTRATION (MEDICARE ONLY) 11/30/2012 18230 ROUTINE VENIPUNCTURE 12/12/2012 92776 US GALLBLADDER ULTRASOUND 12/12/2012 61397 CBC 12/12/2012 13410 ROUTINE VENIPUNCTURE 12/30/2012 52251 CMP 12/30/2012 71996 LIPID PANEL 12/30 9541528 GFR CALC (RESULT ONLY) 12/30/2012 88264 LIPASE 2012 07485 HEPATITIS PROFILE 12/30/2012 22363 INJ TENDON SHEATH/LIGAMENT 01/06/2013 77964 STRAPPING OF ANKLE AND/OR FT 01/06/2013 CASSI MONTIEL 01/16/2013 31038 ROUTINE VENIPUNCTURE 05/10/2013 71573 A1C (IN-HOUSE) 04286 CMP 05/10/2013 4317096 GFR CALC (RESULT ONLY) 05/10/2013 87108 TSH 05/10/2013 96614 OXIMETRY 2013 37394 OXIMETRY 2013 36155 ROUTINE VENIPUNCTURE 08/30/2013 74155 CBC 08/30/2013 03781 CMP 08/30/2013 66068 LIPID PANEL 08/30 7343416 GFR CALC (RESULT ONLY) 08/30/2013 50601 VIT B 12 2013 THYANA THYROID ANALYZER 08/30/2013 66676 VITAMIN D 25-HYDROXY (D2,D3, TOTAL) 08/30/2013 14257 THERAPUTIC INJ SQ/IM 10/02/2013 J0696 ROCEPHIN INJ 1 g 10/02/2013 13033 ROUTINE VENIPUNCTURE 11/16/2013 2083392 GFR CALC (RESULT ONLY) 11/16/2013 14630 BMP 11/16/2013 98993 ROUTINE VENIPUNCTURE 11/30/2013 12917 CMP 11/30/2013 63301 ROUTINE VENIPUNCTURE 02/27/2014 68282 UA W/ CULTURE IF INDICATED 02/27/2014 82145 CMP 02/27/2014 1242270 GFR CALC (RESULT ONLY) 02/27/2014 62499 A1C (RML) 2013 00429 PSA TOTAL 2013 41055 TSH 02/27/2014 20319 ROUTINE VENIPUNCTURE 03/12/2014 12405 THERAPUTIC INJ SQ/IM 03/12/2014 J1885 TORADOL INJ 03/12 39364 URIC ACID 2013 81953 CRP 03/12/2014 26157 RA FACTOR 2013 ANAANA GARTH ANALYZER (SCREEN) 03/13/2014 24289 XRAY HIP RIGHT UNILATERAL MIN 2 VIEWS 03/14/2014 12726 ROUTINE VENIPUNCTURE 04/25/2014 ORTHOPEDBELTRAN BAHENA 04/25/2014 3009197 GFR CALC (RESULT ONLY) 04/25/2014 63306 [facility] 04/25/2014 44207 US ABDOMINAL ULTRASOUND, COMPLETE 06/12/2014 18432 HIDA SCAN 2014 19197 H PYLORI (IN-HOUSE) 06/12/2014 GENERAL CASSI LAWRENCE 06/27/2014 Results Test Result Range THYROID STIMULATING HORMONE - 11/21/15 10:36 THYROID STIMULATING HORMONE 14.21 u[iU]/mL 0.35-4.94 Complete urinalysis with reflex to culture - 04/22/16 07:14 Urine color determination YELLOW NRG Urine clarity determination SLIGHTLY CLOUDY NRG Urine pH measurement by test strip 8 5- 9 Specific gravity of urine by test strip 1.010 1.016-1.022 Urine protein assay by test strip, semi-quantitative 2+ NEGATIVE Urine glucose detection by automated test strip NEGATIVE NEGATIVE Erythrocytes detection in urine sediment by light microscopy NEGATIVE NEGATIVE Urine ketones detection by automated test strip NEGATIVE NEGATIVE Urine nitrite detection by test strip NEGATIVE NEGATIVE Urine total bilirubin detection by test strip NEGATIVE NEGATIVE Urine urobilinogen measurement by automated test strip (mass/volume) NORMAL NORMAL Urine leukocyte esterase detection by dipstick NEGATIVE NEGATIVE Automated urine sediment erythrocyte count by microscopy (number/high power field) NONE NRG Automated urine sediment leukocyte count by microscopy (number/high power field ) NONE NRG Bacteria detection in urine sediment by light microscopy NEGATIVE NRG Squamous epithelial cells detection in urine sediment by light microscopy 0-2 NRG Crystals detection in urine sediment by light microscopy NONE NRG Casts detection in urine sediment by light microscopy NONE NRG Mucus detection in urine sediment by light microscopy NEGATIVE NRG Complete urinalysis with reflex to culture NO NRG Amorphous sediment detection in urine sediment by light microscopy MOD GALILEA PHOSPHATE NRG Automated blood complete blood count (hemogram) panel - 04/22/16 07:25 Blood leukocytes automated count (number/volume) 7.0 10*3/ uL 4.3-11.0 Blood erythrocytes automated count (number/volume) 4.17 10*6 /uL 4.35-5.85 Venous blood hemoglobin measurement (mass/volume) 13.4 g/dL 13.3-17.7 Blood hematocrit (volume fraction) 39 % 40-54 Automated erythrocyte mean corpuscular volume 94 [foz_us] 80-99 Automated erythrocyte mean corpuscular hemoglobin (mass per erythrocyte) 32 pg 25-34 Automated erythrocyte mean corpuscular hemoglobin concentration measurement ( mass/volume) 34 g/dL 32-36 Automated erythrocyte distribution width ratio 12.9 % 10.0-14.5 Automated blood platelet count (count/volume) 301 10*3/uL 130-400 Automated blood platelet mean volume measurement 10.2 [foz_ us] 7.4-10.4 PT panel in platelet poor plasma by coagulation assay - 04/22/16 07:25 Prothrombin time (PT) in platelet poor plasma by coagulation assay 13.1 s 12.2-14.7 INR in platelet poor plasma or blood by coagulation assay 1.0 0.8-1.4 Activated partial thromboplastin time (aPTT) in platelet poor plasma bycoagulation assay - 04/22/16 07:25 Activated partial thromboplastin time (aPTT) in platelet poor plasma bycoagulation assay 38 s 24-35 Comprehensive metabolic panel - 04/22/16 07:25 Serum or plasma sodium measurement (moles/volume) 141 mmol/ L 135-145 Serum or plasma potassium measurement (moles/volume) 3.9 mmol/L 3.6-5.0 Serum or plasma chloride measurement (moles/volume) 103 mmol /L 98-107 Carbon dioxide 28 mmol/L 21-32 Serum or plasma anion gap determination (moles/volume) 10 mmol/L 5-14 Serum or plasma urea nitrogen measurement (mass/volume) 29 mg/dL 7-18 Serum or plasma creatinine measurement (mass/volume) 1.02 mg /dL 0.60-1.30 Serum or plasma urea nitrogen/creatinine mass ratio 28 NRG Serum or plasma creatinine measurement with calculation of estimated glomerular filtration rate > NRG Serum or plasma glucose measurement (mass/volume) 100 mg/dL 70-105 Serum or plasma calcium measurement (mass/volume) 9.5 mg/dL 8.5-10.1 Serum or plasma total bilirubin measurement (mass/volume) 0.4 mg/dL 0.1-1.0 Serum or plasma alkaline phosphatase measurement (enzymatic activity/volume) 103 U/L 40-136 Serum or plasma aspartate aminotransferase measurement (enzymatic activity/ volume) 21 U/L 5-34 Serum or plasma alanine aminotransferase measurement (enzymatic activity/volume ) 22 U/L 0-55 Serum or plasma protein measurement (mass/volume) 7.4 g/dL 6.4-8.2 Serum or plasma albumin measurement (mass/volume) 4.2 g/dL 3.2-4.5 Lipid 1996 panel - 04/22/16 07:25 Serum or plasma triglyceride measurement (mass/volume) 89 mg /dL <150 Serum or plasma cholesterol measurement (mass/volume) 155 mg /dL < 200 Serum or plasma cholesterol in HDL measurement (mass/volume) 49 mg/dL 40-60 Cholesterol in LDL [mass/volume] in serum or plasma by direct assay 93 mg/dL 1-129 Serum or plasma cholesterol in VLDL measurement (mass/volume) 18 mg/dL 5-40 Methicillin resistant Staphylococcus aureus (MRSA) screening culture - 07:28 Methicillin resistant Staphylococcus aureus (MRSA) screening culture NEG NRG Methicillin resistant Staphylococcus aureus (MRSA) screening culture - 10:28 Methicillin resistant Staphylococcus aureus (MRSA) screening culture NEG NRG Encounters ACCT No. Visit Date/Time Discharge Status Pt. Type Provider Facility Loc./Unit Complaint [id number] 06/27/2014 11:00:00 06/27/2014 23: 59:59 [facility] Outpatient DENISE FATIMA DO [id number] 06/12/2014 15:23:00 06/12/2014 23: 59:59 [facility] Outpatient MADL ORDERING BOX OPERATOR, TAMMY L [id number] 06/12/2014 15:23:00 06/12/2014 23: 59:59 [facility] Outpatient MADL ORDERING BOX OPERATOR, TAMMY L [id number] 04/25/2014 14:01:00 04/25/2014 23: 59:59 CLS Outpatient MADL ORDERING BOX OPERATOR, TAMMY L [id number] 03/12/2014 13:41:00 03/12/2014 23: 59:59 CLS Outpatient MADL ORDERING BOX OPERATOR, TAMMY L [id number] 02/27/2014 08:38:00 02/27/2014 23: 59:59 CLS Outpatient MADL ORDERING BOX OPERATOR, TAMMY L [id number] 02/27/2014 08:38:00 02/27/2014 23: 59:59 CLS Outpatient FATIMA DO, DENISE Card [id number] 01/30/2014 15:23:00 01/30/2014 23: 59:59 CLS Outpatient FATIMA DO, DENISE Card [id number] 11/30/2013 14:14:00 11/30/2013 23: 59:59 CLS Outpatient MADL ORDERING BOX OPERATOR, TAMMY L [id number] 11/16/2013 14:01:00 11/16/2013 23: 59:59 CLS Outpatient MADL ORDERING BOX OPERATOR, TAMMY L [id number] 10/31/2013 15:18:00 10/31/2013 23: 59:59 C[facility] Outpatient MADL ORDERING BOX OPERATOR, TAMMY L [id number] 10/02/2013 13:54:00 10/02/2013 23: 59:59 CLS Outpatient MADL ORDERING BOX OPERATOR, TAMMY L [id number] 08/30/2013 08:26:00 08/30/2013 23: 59:59 CLS Outpatient FATIMA DODENISE [id number] 08/10/2013 16:00:00 08/10/2013 23: 59:59 CLS Outpatient FATIMA DO, DENISE Card [id number] 06/15/2013 14:33:00 06/15/2013 23: 59:59 CLS Outpatient FATIMA DODENISE [id number] 06/15/2013 14:33:00 06/15/2013 23: 59:59 CLS Outpatient FATIMA DODENISE [id number] 05/29/2013 18:26:00 05/29/2013 23: 59:59 CLS Outpatient KHADRA FATIMA DOLo Card [id number] 05/29/2013 18:26:00 05/29/2013 23: 59:59 CLS Outpatient AKUA HERNANDEZ DENISE Card [id number] 05/10/2013 09:52:00 05/10/2013 23: 59:59 CLS Outpatient ODILON PARHAM MD [id number] 05/10/2013 09:52:00 05/10/2013 23: 59:59 CLS Outpatient ODILON PARHAM MD [id number] 04/19/2013 14:56:00 04/19/2013 23: 59:59 CLS Outpatient AC DURHAM APRN [id number] 04/04/2013 07:25:00 04/04/2013 23: 59:59 CLS Outpatient CASSI LANZA MD [id number] 01/16/2013 15:55:00 01/16/2013 23: 59:59 CLS Outpatient AKUA HERNANDEZDENISE [id number] 01/06/2013 09:57:00 01/06/2013 23: 59:59 CLS Outpatient AKUA HERNANDEZDENISE [id number] 12/30/2012 08:11:00 12/30/2012 23: 59:59 CLS Outpatient ODILON PARHAM MD [id number] 12/12/2012 09:31:00 12/12/2012 23: 59:59 CLS Outpatient AKUA HERNANDEZDENISE [id number] 12/12/2012 09:31:00 12/12/2012 23: 59:59 CLS Outpatient AKUA HERNANDEZ DENISE Card [id number] 06/22/2012 12:34:00 06/22/2012 23: 59:59 CLS Outpatient [id number] 06/10/2012 10:24:00 06/10/2012 23: 59:59 CLS Outpatient ODILON PARHAM MD [id number] 03/08/2012 14:11:00 03/08/2012 23: 59:59 CLS Outpatient LIEN TINEO MD [id number] 02/17/2012 15:22:00 02/17/2012 23: 59:59 CLS Outpatient LIEN TINEO MD [id number] 01/22/2012 10:19:00 01/22/2012 23: 59:59 [place] [id number] 01/22/2012 10:19:00 01/22/2012 23: 59:[address] [facility] Jasbir TINEO MD, LIEN [id number] 11/30/2012 11:36:00 Document Registration [id number] 11/10/2012 13:28:00 Document Registration [id number] 11/10/2012 13:28:00 Document Registration [id number] 10/26/2012 12:55:00 Document Registration [id number] 09/14/2012 14:00:00 Document Registration [id number] 08/25/2012 16:25:00 Document Registration [id number] 08/17/2012 13:49:00 Document Registration [id number] 06/10/2012 10:24:00 Document Registration
--- OUTSIDE RECORDS SUMMARY | 2016-06-14 04:27 | XMS REPORT ---
Author Author TAMMY COPELAND Organization e[employer] Address Unknown Phone Unavailable Care Team Providers Care Secondary School Teacher Librarian Name Role Phone TAMMY COPELAND CP Unavailable [...] Instructions Start Date End Date Status Dosage Advair Diskus [facility] [id number] 250-50 MCG/DOSE Inhalation Twice a day Jan 30, 2014 1 puffs by Inhalation route 2 times per day Results No Known Results Summary Purpose eClinicalWorks Submission
--- OUTSIDE RECORDS SUMMARY | 2016-06-14 04:27 | XMS REPORT ---
Author DENISE Kitchen [employer] Address Unknown Phone Unavailable Care Team Providers Care Court Messenger Name Role Phone DENISE FATIMA CP Unavailable Allergies, Adverse Reactions, Alerts Substance Reaction Event Type N.K.D.A. Info Not Available Non Drug Allergy Problems Problem Type Condition Code Onset Dates Condition Status Problem Restless legs syndrome G25.81 Active Problem Asthma with acute exacerbation J45.901 Active Problem Other specified hypothyroidism E03.8 Active Problem Rupture of tendon of right shoulder S46.911A Active Assessment Sacroiliac joint pain M53.3 Active Problem Bronchitis J40 Active Problem Asthma J45.909 Active Medications Medication Code System Code Instructions Start Date End Date Status Dosage Norvasc [facility] 19316758879 10 MG TAKE ONE TABLET BY MOUTH DAILY Levothyroxine Sodium [facility] 96614132447 200 MCG TAKE ONE TABLET BY MOUTH DAILY Aspirin [facility] [address]-59 81 mg Feb 27, 2014 1 tablet by Oral route 1 time per day Omeprazole [facility] 79127824294 20 MG TAKE ONE CAPSULE BY MOUTH TWICE DAILY Fish Oil [facility] [address]-11 1000 MG Orally Twice a day 1 capsule Requip [facility] 84094082664 0.5 MG Orally Once a day 1/2 tab x 2 days then 1 tablet 1 to 3 hours before bedtime MiraLax [facility] [address]-56 17 gram/dose Dec 26, 2013 take 17 g mixed with 8 oz. water or juice by Oral route 1 time per day Vitamin D3 [facility] 46733-16169 1,000 unit Jan 15, 2012 2 capsule by Oral route 1 time per day Diclofenac Sodium [facility] 64499777250 75 MG TAKE ONE TABLET BY MOUTH TWICE DAILY NEEDED Quinapril HCl [facility] 47682781341 20 MG TAKE THREE TABLETS BY MOUTH DAILY Advair Diskus [facility] [address]-56 250-50 MCG/DOSE Inhalation Twice a day Jan 30, 2014 1 puffs by Inhalation route 2 times per day Gabapentin [facility] [address]-30 300 MG TAKE ONE CAPSULE BY MOUTH DAILY AT NIGHT Ventolin HFA [facility] [address]-09 90 mcg/actuation Feb 27, 2014 2 puffs by Inhalation route 4 times per day PRN keep on file don't fill today Fluticasone Propionate [facility] 64622940920 50 MCG/ACT USE ONE SPRAY IN EACH NOSTRIL TWICE DAILY ProAir HFA [facility] [address]-34 108 (90 Base) MCG/ACT Inhalation every 4 hrs prn Feb 26, 2015 2 puffs as needed Hydrochlorothiazide [facility] 30192983043 50 MG TAKE ONE TABLET BY MOUTH DAILY Procedures Procedure Coding System Code Date DRAIN/INJECT, JOINT/BURSA CPT-4 17448 Apr 22, 2015 Vital Signs Date/Time: Apr 22, 2015 Temperature 99.2 F Weight 322 lbs Height 70 in BMI 46.20 Index Blood Pressure Diastolic 82 mmHg Blood Pressure Systolic 146 mmHg Cardiac Monitoring Heart Rate 96 bpm Results Name Result Date Reference Range Unit Abnormality Flag JOINT INJECTION-LARGE JOINT (specify site) Summary Purpose eClinicalWorks Submission
--- OUTSIDE RECORDS SUMMARY | 2016-06-14 04:27 | XMS REPORT ---
Author Author TAMMY COPELAND [facility] eClinicalWorks Address Unknown Phone Unavailable Care Team Providers Care Oil Distributor Name Role Phone TAMMY COPELAND Unavailable Allergies, Adverse Reactions, Alerts Substance Reaction Event Type N.K.D.A. Info Not Available Non Drug Allergy Problems Problem Type Condition Code Onset Dates Condition Status Assessment Bronchitis J40 Active Assessment Restless legs syndrome G25.81 Active Assessment Asthma with acute exacerbation J45.901 Active Problem Restless legs syndrome G25.81 Active Problem Asthma with acute exacerbation J45.901 Active Problem Other specified hypothyroidism E03.8 Active Problem Rupture of tendon of right shoulder S46.911A Active Assessment Other specified hypothyroidism E03.8 Active Problem Bronchitis J40 Active Problem Asthma J45.909 Active Medications Medication Code System Code Instructions Start Date End Date Status Dosage Vitamin D3 [facility] 46951-15006 1,000 unit Jan 15, 2012 2 capsule by Oral route 1 time per day Norvasc [facility] 78128717524 10 MG TAKE ONE TABLET BY MOUTH DAILY ProAir HFA [facility] [address]-83 108 (90 Base) MCG/ACT Inhalation every 4 hrs prn Feb 26, 2015 2 puffs as needed PredniSONE [facility] [address]-91 20 MG Orally bid Mar 26, 2015 Mar 31, 2015 1 tablet Quinapril HCl [facility] 52629459942 20 MG TAKE THREE TABLETS BY MOUTH DAILY Advair Diskus [facility] [address]-40 250-50 MCG/DOSE Inhalation Twice a day Jan 30, 2014 1 puffs by Inhalation route 2 times per day Diclofenac Sodium [facility] 78895141362 75 MG TAKE ONE TABLET BY MOUTH TWICE DAILY NEEDED Requip [facility] 15541942455 0.5 MG Orally Once a day 1/2 tab x 2 days then 1 tablet 1 to 3 hours before bedtime Fluticasone Propionate [facility] 78000197875 50 MCG/ACT USE ONE SPRAY IN EACH NOSTRIL TWICE DAILY Levaquin [facility] [address]-23 500 MG Orally Once a day Mar 26, 2015 Apr 05, 2015 1 tablet Aspirin [facility] [address]-82 81 mg Feb 27, 2014 1 tablet by Oral route 1 time per day Hydrochlorothiazide [facility] 63859420737 50 MG TAKE ONE TABLET BY MOUTH DAILY Gabapentin [facility] [address]-63 300 MG TAKE ONE CAPSULE BY MOUTH DAILY AT NIGHT Levothyroxine Sodium [facility] 38299024365 200 MCG TAKE ONE TABLET BY MOUTH DAILY Fish Oil [facility] [address]-43 1000 MG Orally Twice a day 1 capsule Omeprazole [facility] 75528080482 20 MG TAKE ONE CAPSULE BY MOUTH TWICE DAILY MiraLax [facility] [address]-60 17 gram/dose Dec 26, 2013 take 17 g mixed with 8 oz. water or juice by Oral route 1 time per day Procedures Procedure Coding System Code Date CHEST X-RAY CPT-4 39570 Mar 26, 2015 [facility] VISIT ESTABLISHED PATIENT CPT-4 G0467 Mar 26, 2015 MEASURE BLOOD OXYGEN LEVEL CPT-4 32322 Mar 26, 2015 VENIPUNCT, ROUTINE* CPT-4 87989 Mar 26, 2015 Office Visit, Est Pt., Level 4 CPT-4 37944 Mar 26, 2015 Vital Signs Date/Time: Mar 26, 2015 Temperature 98.9 F Weight 322.1 lbs Height 70 in Oximetry on room air:96 % Blood Pressure Diastolic 80 mmHg Blood Pressure Systolic 148 mmHg Cardiac Monitoring Heart Rate 82 bpm BMI 46.21 Index Results Name Result Date Reference Range Unit Abnormality Flag ROUTINE VENIPUNCTURE Summary Purpose eClinicalWorks Submission
--- OUTSIDE RECORDS SUMMARY | 2016-06-14 04:27 | XMS REPORT ---
Author Author TAMMY COPELAND Organization e[employer] Address Unknown Phone Unavailable Care Team Providers Care Shaper Set Up Operator Name Role Phone TAMMY COPELAND CP Unavailable Allergies No Known Allergies Problems Problem Type Condition Code Onset Dates Condition Status Problem Restless legs syndrome G25.81 Active Problem Asthma with acute exacerbation J45.901 Active Problem Other specified hypothyroidism E03.8 Active Problem Rupture of tendon of right shoulder S46.911A Active Problem IRVIN (obstructive sleep apnea) G47.33 Active Problem Bronchitis J40 Active Problem Asthma J45.909 Active Medications Medication Code System Code Instructions Start Date End Date Status Dosage Fluticasone Propionate [facility] 97975116243 50 MCG/ACT USE ONE SPRAY IN EACH NOSTRIL TWICE DAILY Results No Known Results Summary Purpose eClinicalWorks Submission
--- OUTSIDE RECORDS SUMMARY | 2016-06-14 04:27 | XMS REPORT ---
Author DENISE Kitchen [facility] eClinicalWorks Address Unknown Phone Unavailable Care Team Providers Care Business Development Director Name Role Phone DENISE FATIMA CP Unavailable [...] vaccination and inoculation, Influenza V04.81 Active Assessment Sacroiliac joint pain M53.3 Active Problem Other chronic nonalcoholic liver disease 571.8 Active Problem Unspecified orchitis and epididymitis 604.90 Active Problem Pain in joint, forearm 719.43 Active Problem Acute sinusitis, unspecified 461.9 Active Problem Personal history of other allergy, other than to medicinal agents V15.09 Active Medications Medication Code System Code Instructions Start Date End Date Status Dosage Fluticasone Propionate [facility] 31498352980 50 MCG/ACT USE ONE SPRAY IN EACH NOSTRIL TWICE DAILY Hydrochlorothiazide [facility] 70985503563 50 MG TAKE ONE TABLET BY MOUTH DAILY Vitamin D3 [facility] [address] 1,000 unit Jan 15, 2012 2 capsule by Oral route 1 time per day Baclofen [facility] [address]-75 10 MG Orally Three times a day prn Dec 17, 2014 Dec 31, 2014 1 tablet with food or milk Metoclopramide HCl [facility] [address]-55 5 mg June 12, 2014 1 tablet by Oral route 4 times per day PRN 30 minutes before meals and at bedtime Advair Diskus [facility] [address]-26 250-50 MCG/DOSE Inhalation Twice a day Jan 30, 2014 1 puffs by Inhalation route 2 times per day MiraLax [facility] [address]-60 17 gram/dose Dec 26, 2013 take 17 g mixed with 8 oz. water or juice by Oral route 1 time per day Aspirin [facility] [address]-78 81 mg Feb 27, 2014 1 tablet by Oral route 1 time per day Ventolin HFA [facility] [address]-92 90 mcg/actuation Feb 27, 2014 2 puffs by Inhalation route 4 times per day PRN keep on file don't fill today Diclofenac Sodium [facility] 09774828214 75 MG TAKE ONE TABLET BY MOUTH TWICE DAILY NEEDED Quinapril HCl [facility] 61976633988 20 MG TAKE THREE TABLETS BY MOUTH DAILY Fish Oil [facility] [address]-75 1000 MG Orally Twice a day 1 capsule Flovent Diskus [facility] [address]-01 250 mcg/actuation May 29, 2014 inhale 1 puff (250 mcg) by inhalation route 2 times per day Omeprazole [facility] 68889380817 20 MG TAKE ONE CAPSULE BY MOUTH TWICE DAILY Norvasc [facility] 50032882127 10 MG TAKE ONE TABLET BY MOUTH DAILY Neurontin [facility] [address]-07 300 MG Orally Once a day at night 1 capsule Procedures Procedure Coding System Code Date DRAIN/INJECT, JOINT/BURSA CPT-4 16286 Dec 24, 2014 Vital Signs Date/Time: Dec 24, 2014 Temperature 98.3 F Weight 319.1 lbs Height 70 in BMI 45.78 Index Blood Pressure Diastolic 88 mmHg Blood Pressure Systolic 142 mmHg Cardiac Monitoring Heart Rate 72 bpm Results Name Result Date Reference Range Unit Abnormality Flag JOINT INJECTION-LARGE JOINT (specify site) Summary Purpose eClinicalWorks Submission
== END 2016-06-10 11:20 | disposition home or self-care (01) ==
LOC: DELPENDDIS → SDC 06:03
PROVIDERS: ATTEND Orthopaedic Surgery
DX: M75.102 Unspecified rotator cuff tear or rupture of left shoulder, not specified as traumatic (principal); M94.212 Chondromalacia, left shoulder; I10 Essential (primary) hypertension; R73.02 Impaired glucose tolerance (oral); E03.9 Hypothyroidism, unspecified; Z79.899 Other long term (current) drug therapy
CPT/HCPCS: 94640; 94760

== ENCOUNTER 2016-09-03 15:05 | Outpatient (RCR) | payer MEDICARE, OTHER ==
[~2016-09-03 15:05] MED LIST changes: +OXYC-197 PO
== END 2016-09-09 | disposition home or self-care (01) ==
PROVIDERS: ATTEND Orthopaedic Surgery
DX: M25.512 Pain in left shoulder (principal); Z98.890 Other specified postprocedural states

== ENCOUNTER 2017-01-20 09:00 | Outpatient (CLI) | payer MEDICARE ==
[~2017-01-20] VITALS: Ht 180.3 cm; Wt 144.2 kg
[2017-01-20 09:13] VITALS: BP 148/80
[2017-01-20 09:51] LABS: BILIRUBIN,URINE NEGATIVE (NEGATIVE); KETONES,URINE NEGATIVE (NEGATIVE); LEUKOCYTE ESTERASE ,URINE 1+ (NEGATIVE); NITRITE,URINE NEGATIVE (NEGATIVE); PH,URINE 6.5 (5-9); PROTEIN,URINE 2+ (NEGATIVE); UROBILINOGEN,URINE NORMAL (NORMAL)
[2017-01-20 09:59] LABS: BASOPHILS # (AUTO) 0.1 10^3/uL (0.0-0.1); BASOPHILS % (AUTO) 1 % (0-10); EOSINOPHILS # (AUTO) 0.5 10^3/uL (0.0-0.3); EOSINOPHILS % (AUTO) 9 % (0-10); LYMPHOCYTES % (AUTO) 20 % (12-44); MEAN CORPUSCULAR HEMOGLOBIN 33 PG (25-34); MEAN CORPUSCULAR HGB CONC 34 G/DL (32-36); MEAN CORPUSCULAR VOLUME 95 FL (80-99); MEAN PLATELET VOLUME 10.5 FL (7.4-10.4); MONOCYTES # (AUTO) 0.6 X 10^3 (0.0-1.0); MONOCYTES % (AUTO) 11 % (0-12); NEUTROPHILS # (AUTO) 3.1 X 10^3 (1.8-7.8); NEUTROPHILS % (AUTO) 59 % (42-75); PLATELET COUNT 267 10^3/uL (130-400); RED BLOOD COUNT 3.92 10^6/uL (4.35-5.85); RED CELL DISTRIBUTION WIDTH 12.5 % (10.0-14.5); WHITE BLOOD COUNT 5.2 10^3/uL (4.3-11.0)
[2017-01-20 10:02] LABS: INR 0.9 (0.8-1.4); PROTHROMBIN TIME PATIENT 12.7 SEC (12.2-14.7)
[2017-01-20 10:13] LABS: ALANINE AMINOTRANSFERASE 20 U/L (0-55); ALBUMIN 3.9 GM/DL (3.2-4.5); ANION GAP 10 MMOL/L (5-14); ASPARTATE AMINO TRANSFERASE 20 U/L (5-34); BILIRUBIN,TOTAL 0.3 MG/DL (0.1-1.0); BLOOD UREA NITROGEN 27 MG/DL (7-18); BUN/CREATININE RATIO 27; CALCIUM 9.2 MG/DL (8.5-10.1); CARBON DIOXIDE 23 MMOL/L (21-32); CHLORIDE 106 MMOL/L (98-107); CREATININE SERUM 0.99 MG/DL (0.60-1.30); GFR ESTIMATED > 60; GLUCOSE 106 MG/DL (70-105); POTASSIUM 3.7 MMOL/L (3.6-5.0); SODIUM 139 MMOL/L (135-145); TOTAL PROTEIN 7.3 GM/DL (6.4-8.2)
[2017-01-20] MEDS ORDERED: CALC-687 PO (10:14)
[2017-01-20 10:16] LABS: WBC,URINE RARE /HPF
[2017-01-20 10:26] LABS: ERYTHROCYTE SEDIMENTATION RATE 37 MM/HR (0-30)
--- NOTE | 2017-01-20 10:51 | Diagnostic Imaging Report ---
INDICATION: Preoperative evaluation COMPARISON: 04/22/16 FINDINGS: 2 views of the chest are obtained. Heart size is normal. The pulmonary vessels appear unremarkable. There is no pneumothorax, mediastinal widening or pleural fluid demonstrated. The lungs are clear. The osseous structures appear unremarkable. IMPRESSION: No acute abnormalities demonstrated. Dictated by: Dictated on workstation # [id number]
[2017-01-20] MEDS ORDERED: QUIN20TA27 PO (11:23)
[2017-01-20] MEDS ORDERED: GABA-488 PO (11:23)
[2017-01-20] MEDS ORDERED: AMLO10TA2 PO (11:23)
[2017-01-20] MEDS ORDERED: LEVO200T6 PO (11:23)
[2017-01-20] MEDS ORDERED: OMEP20CA12 PO (11:23)
[2017-01-20] MEDS ORDERED: HYDR50TA3 PO (11:23)
[2017-01-20] MEDS ORDERED: FLUT9.9S NS (14:09)
== END 2017-01-20 10:00 | disposition home or self-care (01) ==
LOC: PREOP 09:00
PROVIDERS: ATTEND Orthopaedic Surgery
DX: Z01.812 Encounter for preprocedural laboratory examination (principal); Z01.811 Encounter for preprocedural respiratory examination; M17.11 Unilateral primary osteoarthritis, right knee
CPT/HCPCS: 36415; 71020; 80053; 81000; 85025; 85610; 85652; 86850; 86900; 86901; 87081

== ENCOUNTER 2017-03-25 09:04 | Outpatient (RCR) | payer MEDICARE ==
[~2017-03-25 09:04] MED LIST changes: +AMLO10TA2 PO; +CALC-687 PO; +FLUT9.9S NS; +GABA-488 PO; -HYDR-3812 PO; +QUIN20TA16 PO
== END 2017-05-04 13:33 | disposition home or self-care (01) ==
PROVIDERS: ATTEND Orthopaedic Surgery
DX: Z47.1 Aftercare following joint replacement surgery (principal); Z96.651 Presence of right artificial knee joint

== ENCOUNTER → 2017-05-24 | Outpatient (CLI) | payer MEDICARE ==
--- NOTE | 2017-05-24 13:18 | Diagnostic Imaging Report ---
PROCEDURE: CT left lower extremity without contrast. TECHNIQUE: Multiple contiguous axial images were obtained through the left lower extremity without the use of intravenous contrast. Sagittal and coronal reformations were then performed. INDICATION: Preoperative evaluation for left knee replacement surgery. FINDINGS: The Hill protocol was performed through the left lower extremity with involvement of the left hip, left knee, and left ankle for preoperative planning for left knee replacement surgery. Femoroacetabular alignment is normal. There appear to be significant degenerative changes at the left knee. Large osteophytes are present in the medial and lateral compartments as well as patellofemoral compartment. There appear to be enthesophytes at the quadriceps insertion on the patella. Patient does have a moderate-sized joint effusion. Visualized limited views of the left ankle are grossly unremarkable. IMPRESSION: Preoperative CT planning prior to left knee arthroplasty. Dictated by: Dictated on workstation # [id number]
== END ==
LOC: RAD 12:28
PROVIDERS: ATTEND Orthopaedic Surgery
DX: Z01.818 Encounter for other preprocedural examination (principal)
CPT/HCPCS: 73700

== ENCOUNTER 2017-06-09 13:43 | Outpatient (CLI) | payer MEDICARE ==
[~2017-06-09] VITALS: Ht 180.3 cm; Wt 145.1 kg
[2017-06-09 13:57] VITALS: BP 130/67
[2017-06-09 14:34] LABS: BASOPHILS # (AUTO) 0.1 10^3/uL (0.0-0.1); BASOPHILS % (AUTO) 1 % (0-10); EOSINOPHILS # (AUTO) 0.3 10^3/uL (0.0-0.3); EOSINOPHILS % (AUTO) 3 % (0-10); HEMATOCRIT 40 % (40-54); HEMOGLOBIN 13.4 G/DL (13.3-17.7); LYMPHOCYTES % (AUTO) 21 % (12-44); MEAN CORPUSCULAR HEMOGLOBIN 32 PG (25-34); MEAN CORPUSCULAR HGB CONC 33 G/DL (32-36); MEAN CORPUSCULAR VOLUME 96 FL (80-99); MEAN PLATELET VOLUME 10.4 FL (7.4-10.4); MONOCYTES % (AUTO) 10 % (0-12); NEUTROPHILS # (AUTO) 6.1 X 10^3 (1.8-7.8); NEUTROPHILS % (AUTO) 65 % (42-75); PLATELET COUNT 292 10^3/uL (130-400); RED BLOOD COUNT 4.19 10^6/uL (4.35-5.85); RED CELL DISTRIBUTION WIDTH 13.8 % (10.0-14.5); WHITE BLOOD COUNT 9.4 10^3/uL (4.3-11.0)
[2017-06-09] MEDS ORDERED: BUDE10.2 IH (14:35)
[2017-06-09 14:40] LABS: BILIRUBIN,URINE NEGATIVE (NEGATIVE); CLARITY,URINE CLEAR; COLOR,URINE YELLOW; GLUCOSE, URINE (UA) NEGATIVE (NEGATIVE); KETONES,URINE NEGATIVE (NEGATIVE); LEUKOCYTE ESTERASE ,URINE NEGATIVE (NEGATIVE); NITRITE,URINE NEGATIVE (NEGATIVE); PH,URINE 7 (5-9); PROTEIN,URINE NEGATIVE (NEGATIVE); UROBILINOGEN,URINE NORMAL (NORMAL)
[2017-06-09 14:45] LABS: PROTHROMBIN TIME PATIENT 13.4 SEC (12.2-14.7)
[2017-06-09 14:51] LABS: ERYTHROCYTE SEDIMENTATION RATE 29 MM/HR (0-30)
[2017-06-09 14:52] LABS: ALANINE AMINOTRANSFERASE 23 U/L (0-55); ALBUMIN 4.1 GM/DL (3.2-4.5); ALKALINE PHOSPHATASE 101 U/L (40-136); BILIRUBIN,TOTAL 0.4 MG/DL (0.1-1.0); BUN/CREATININE RATIO 32; CALCIUM 9.6 MG/DL (8.5-10.1); CARBON DIOXIDE 29 MMOL/L (21-32); CHLORIDE 99 MMOL/L (98-107); CREATININE SERUM 1.01 MG/DL (0.60-1.30); GFR ESTIMATED > 60; GLUCOSE 113 MG/DL (70-105); POTASSIUM 3.6 MMOL/L (3.6-5.0); SODIUM 137 MMOL/L (135-145); TOTAL PROTEIN 7.5 GM/DL (6.4-8.2)
[2017-06-09 14:57] LABS: BACTERIA,URINE NEGATIVE /HPF
== END 2017-06-09 14:25 | disposition home or self-care (01) ==
LOC: PREOP 13:43
PROVIDERS: ATTEND Orthopaedic Surgery
DX: Z01.812 Encounter for preprocedural laboratory examination (principal); Z01.810 Encounter for preprocedural cardiovascular examination; Z11.2 Encounter for screening for other bacterial diseases; M17.12 Unilateral primary osteoarthritis, left knee; R53.83 Other fatigue
CPT/HCPCS: 36415; 80053; 81000; 85025; 85610; 85652; 86850; 86900; 86901; 87081; 93005

== ENCOUNTER 2017-06-16 06:02 | Inpatient (IN) | payer MEDICARE ==
--- NOTE | 2017-06-07 14:42 | HISTORY AND PHYSICAL ---
DATE OF SERVICE: DATE OF ADMISSION: 06/16/2017. REASON FOR ADMISSION: Left total knee arthroplasty. This will be for regular inpatient admission. HISTORY OF PRESENT ILLNESS: The patient is a 66-year-old gentleman with longstanding progressive left knee pain. Radiographs reveal severe tricompartmental osteoarthritis. He had undergone treatment with injections, anti-inflammatories as well as arthroscopy without relief. He reports the pain has progressed to the point where it is activity limiting. He denies recent injuries. Due to functional impairment and failure to improve with conservative measures, the patient has elected to proceed with surgical intervention. REVIEW OF SYSTEMS: No chest pain, no shortness of breath, no dysuria. PAST MEDICAL HISTORY: Sleep apnea, hypertension, asthma, reflux, osteoarthritis, peptic ulcer disease, hiatal hernia, gastric ulcer, prediabetes, fatty liver, neuropathy back pain, RLS and hypothyroidism. PAST SURGICAL HISTORY: Cholecystectomy, right total knee arthroplasty, left rotator cuff. FAMILY HISTORY: Significant for cardiovascular disease, diabetes, thyroid disorder, hypertension. PRIMARY CARE PROVIDER: KAE Schultz MEDICATIONS: Diclofenac, Norvasc, levothyroxine, hydrochlorothiazide, omeprazole, quinapril, Advair, gabapentin, fish oil, Ventolin, MiraLax, metoclopramide, Requip, Percocet. ALLERGIES: No known drug allergies. SOCIAL HISTORY: The patient is a former smoker. He drinks alcohol occasionally. PHYSICAL EXAMINATION: GENERAL: The patient is well developed, well nourished, in no acute distress. HEENT: Normocephalic, atraumatic. Pupils are equal, round and reactive to light. Oropharynx is clear. NECK: Supple with no lymphadenopathy. LUNGS: Clear to auscultation bilaterally. HEART: Regular rate and rhythm. ABDOMEN: Soft, nontender, nondistended. EXTREMITIES: The left knee demonstrates a moderate effusion. There is no erythema or warmth. He has varus alignment. Range of motion is 0/4/120. He has 1+ valgus laxity, no varus laxity. Negative anterior and posterior drawer. The patient ambulates with an antalgic gait. He is tender along his medial femoral condyle and has marked pain with patellar loading. IMPRESSION: Severe left knee osteoarthritis. PLAN: Left total knee arthroplasty. The risks, benefits, options ramifications and recovery have been discussed at length with the patient. He understands and wishes to proceed. He will require regular inpatient admission due to his extensive comorbidities as well as pain management and gait training and physical therapy. Job ID: [id number] DocumentID: [id number] Dictated Date: 06/07/2017 14:00:07 Hot Box Checker Date: 06/07/2017 14:41:23 Dictated By: TAE RUTH MD
[~2017-06-16] VITALS: Ht 180.3 cm; Wt 145.1 kg
[~2017-06-16 06:02] MED LIST changes: +BUDE10.2 IH
--- OUTSIDE RECORDS SUMMARY | 2017-06-16 06:08 | XMS REPORT ---
Author Author TAMMY COPELAND [facility] Address [address] [place] [address] Care Team Providers Care Content Producer Name Role Phone CARLEEArabellaTAMMY Unavailable PROBLEMS Type Condition ICD9-CM Code CDH54-TZ Code Onset Dates Condition Status SNOMED Code Problem GERD with esophagitis K21.0 Active 761114471 Problem Dyspnea on exertion R06.09 Active 14972335 Problem Essential hypertension I10 Active 45237850 Problem Allergic state, subsequent encounter T78.40XD Active 475155743 Problem Arthritis M19.90 Active 1406022 Problem Dyspnea, unspecified R06.00 Active 012626305 Problem Left upper quadrant pain R10.12 Active 900182551 Problem Hypothyroidism (acquired) E03.9 Active 965009422 Problem Chronic superficial gastritis without bleeding K29.30 Active 577577110 Problem Infraspinatus tendon tear, left, subsequent encounter S46.812D Active 0198026 Problem IRVIN (obstructive sleep apnea) G47.33 Active 63498168 Problem Supraspinatus tendon tear, left, subsequent encounter S46.812D Active 647773796 Problem Restless legs syndrome G25.81 Active 627986378 Problem Other specified hypothyroidism E03.8 Active 293892737 Problem Rupture of tendon of right shoulder S46.911A Active 532645872 Problem Bronchitis J40 Active 87288591 Problem Asthma J45.909 Active 928165924 Problem Asthma with acute exacerbation J45.901 Active 496610223 ALLERGIES No Information ENCOUNTERS Encounter Location Date Diagnosis [facility] [address] [address] Jun, [facility] [id number] [address] May, Asthma J45.909 [facility] [id number] [place] [address] 78366- 2550 May, [place] [id number] [place] [address]85- 1281 Apr, Pre-op evaluation Z01.818 ; Allergic state, subsequent encounter T78.40XD and BMI 45.0-49.9, adult Z68.42 [place] [address] [address]- 3054 Mar, [place] [address] [address]- [address] Mar, [facility] [address] [address] Mar, Cough R05 ; Acute nasopharyngitis J00 and BMI 45.0-49.9, adult Z68.42 [place] [address] [address]61- 8208 Mar, [place] [address] 23493- 5069 Jan, Ganglion cyst of finger of right hand M67.441 [place] [address] 79171- 7993 Dec, [place] [address] 6[address]26- 3509 10 Dec, 2016 Change in vision H53.9 ; Arthritis M19.90 ; Essential hypertension I10 ; GERD with esophagitis K21.0 ; Hypothyroidism (acquired) E03.9 and Ganglion cyst of joint of finger of left hand M67.442 [place] [address] 47652- 4831 15 Nov, 2016 Encounter for immunization Z23 [place] [address] [address]- 5418 07 Nov, 2016 [place] [address] 70332- 3551 Sep, [place] [id number] [place] [address] 16216- 1711 Aug, [place] [address] 80059- 6291 July, Cyst of joint of right hand M25.841 [place] [address] 26515- 3615 May, [place] [address] 47513- 5990 May, Fever, unspecified R50.9 and Influenza A J10.1 [place] [address] 95788- 4551 May, Left shoulder pain, unspecified chronicity M25.512 [place] [address] 87817- 2818 Apr, [place] [address] 76592- 8983 14 Apr, 2016 Infraspinatus tendon tear, left, subsequent encounter S46.812D and Supraspinatus tendon tear, left, subsequent encounter S46.812D [place] [id number] [place] [address] 73584- 0827 Apr, [place] [id number] [place] [address] 64345- 8439 Mar, Left shoulder pain, unspecified chronicity M25.512 [place] [id number] [place] [address] 97771- 5947 Mar, [place] [address] 30692- 6772 Mar, Left shoulder pain, unspecified chronicity M25.512 [place] [id number] [place] [address] 38809- 7228 Feb, Chronic superficial gastritis without bleeding K29.30 ; Left upper quadrant pain R10.12 ; Essential hypertension I10 ; Dyspnea on exertion R06.09 and Palpitations R00.2 [facility] [id number] [place] [address] 88870- 5780 Jan, Colon polyps K63.5 [facility] [id number] [place] [address] 93832- 3137 Jan, Colon polyps K63.5 [facility] [address] 51557- 3351 Dec, [facility] [id number] [place] [address] 11554 -5571 Dec, GERD with esophagitis K21.0 [place] [address] 16734- 1345 Nov, Arthritis pain M19.90 ; Colon polyps K63.5 ; Seasonal allergic rhinitis due to pollen J30.1 and Encounter for immunization Z23 [place] [address] 24252- 0514 Nov, [place] [address] 72579- 6687 Oct, [place] [address] 85331- 2928 Sep, [facility] [address] 82198- 0513 July, [place] [address] 00766- 3302 July, [place] [id number] [place] [address] 29492- 1819 July, Asthma with acute exacerbation J45.901 and Bronchitis J40 [place] [address] 96457- 1820 Jun, [place] [address] 67635- 8239 May, Other specified hypothyroidism E03.8 and 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 [facility] [id number] [place] [address] 08150- 4855 Apr, [facility] [address] 46692- 6123 Apr, Sacroiliac joint pain M53.3 [facility] [address] 17077- 2596 Mar, Other specified hypothyroidism E03.8 ; Restless legs syndrome G25.81 ; Asthma with acute exacerbation J45.901 and Bronchitis J40 [facility] [address] [address]277 -[address]168 Feb, Upper respiratory symptom R09.89 [place] [address] 56594- 0667 Feb, Restless leg G25.81 and Asthma J45.909 [facility] [address] 74229- 0161 Dec, Rupture of tendon of right shoulder S46.911A [place] [address] 58139- 6612 Dec, Sacroiliac joint pain M53.3 [facility] [id number] [place] [address] 93878- 9758 Nov, [place] [address] 51397- 5250 Nov, Lumbago of lumbosacaral region with sciatica 724.2 and Sacroiliitis 720.2 [place] [address] 63054- 7450 Nov, Influenza vaccine administered V04.81 [facility] [id number] [place] [address] 49924- 5505 Nov, [facility] [address] 83768- 3991 21 Nov, 2014 [facility] [id number] [place] [address] 98677- 7919 18 Nov, 2014 Thyroid function test abnormal 794.5 and Thyroid antibody positive 795.79 [facility] [id number] [place] [address] 16902- 7117 16 Nov, 2014 Hypothyroidism 244.9 ; Thyroid antibody positive 795.79 and Right shoulder pain 719.41 [facility] [id number] [place] [address] 69340- 6966 Oct, [facility] [id number] [place] [address] 12696- 4915 Oct, Thyroid function test abnormal 794.5 [facility] [id number] [place] [address] 37151- 4447 14 Oct, 2014 Hypertension 401.9 and Bilateral leg pain 729.5 [facility] [id number] [place] [address] 18969- 8273 Oct, [facility] [id number] [place] [address] 89373- 9007 Oct, Bilateral leg pain 729.5 and Hypertension 401.9 [facility] [id number] [place] [address] 30708- 0916 Sep, Bilateral leg pain 729.5 ; Hypertension 401.9 and Edema 782.3 [facility] [id number] [place] [address] 17506- 6573 Aug, Unspecified hereditary and idiopathic peripheral neuropathy 356.9 and Arthritis 716.90 [facility] [id number] [place] [address] 74404- 6538 Aug, [facility] [id number] [place] [address] 51940- 2825 July, [facility] [id number] [place] [address] 05218- 3957 Jun, [facility] [place] [facility] [address] [id number] [place] [address]- 9574 14 Jun, 2014 [facility] [place] [facility] [address] [id number] [place] [address]- 1546 13 Jun, 2014 [facility] [place] [facility] [address] [id number] [place] [address]- 3847 25 May, 2014 [facility] [place] [facility] [address] [id number] [place] [address]- 5898 May, [facility] [place] [facility] [address] [id number] [place] [address]- 8479 May, [facility] [place] [facility] [address] [id number] [place] [address]- 4917 May, [facility] [place] [facility] [address] [id number] [place] [address]- 7151 May, [facility] [place] [facility] [address] [id number] [place] [address]- 1447 16 May, 2014 [facility] [place] [facility] [address] [id number] [place] [address]- 6740 May, [facility] [place] [facility] [address] [id number] [place] [address]- 3706 May, [facility] [place] [facility] [address] [id number] [place] [address]- 6546 May, [facility] [place] [facility] [address] [id number] [place] [address]- 3108 May, [facility] [place] [facility] [address] [id number] [place] [address]- 1608 May, [facility] [place] [facility] [address] [id number] [place] [address]- 4741 Apr, [facility] [place] [facility] [address] [id number] [place] [address]- 2661 Apr, [facility] [place] [facility] [address] [id number] [place] [address]- 1374 Apr, 2014 [facility] [place] [facility] [address] [id number] [place] [address]- 2056 Apr, 2014 [facility] [place] [facility] [address] [id number] [place] [address]- 3686 Apr, 2014 [facility] [place] [facility] [address] [id number] [place] [address]- 9746 Apr, 2014 [facility] [place] [facility] [address] [id number] [place] [address]- 8144 Apr, [facility] [place] [facility] [address] [id number] [place] [address]- 8432 Apr, [facility] [place] [facility] [address] [id number] [place] [address]- 3302 Mar, [facility] [place] [facility] [address] [id number] [place] [address]- 9982 Mar, [facility] [place] [facility] [address] [id number] [place] [address]- 7247 Mar, [facility] [place] [facility] [address] [id number] [place] [address]- 4739 Mar, [facility] [place] [facility] [address] [facility] [id number] [place] [address]- 9747 Mar, [facility] [place] [facility] [address] [id number] [place] [address]- 3201 Mar, [facility] [place] [facility] [address] [id number] [place] [address]- 6123 Feb, [facility] [place] [facility] [address] [id number] [place] [address]- 7695 Feb, [facility] [place] [facility] [address] [id number] [place] [address]- 1239 Feb, [facility] [place] [facility] [address] [id number] [place] [address]- 8931 Feb, [facility] [place] [facility] [address] [id number] [place] [address]- 6565 Feb, [facility] [place] [facility] [address] [id number] [place] [address]- 5391 Feb, [facility] [place] [facility] [address] [id number] [place] [address]- 9851 Feb, [facility] [place] [facility] [address] [id number] [place] [address]- 2026 Feb, [facility] [place] [facility] [address] [id number] [place] [address]- 2291 Feb, [facility] [place] [facility] [address] [id number] [place] [address]- 9033 Feb, [facility] [place] [facility] [address] [id number] [place] [address]- 7475 Feb, [facility] [place] [facility] [address] [id number] [place] [address]- 5623 Feb, [facility] [place] [facility] [address] [id number] [place] [address]- 8931 Feb, [facility] [place] [facility] [address] [id number] [place] [address]- 4676 Feb, [facility] [place] [facility] [address] [id number] [place] [address]- 8723 Feb, [facility] [place] [facility] [address] [id number] [place] [address]- 6346 Feb, [facility] [place] [facility] [address] [id number] [place] [address]- 7546 Feb, [facility] [place] [facility] [address] [id number] [place] [address]- 1479 Feb, [facility] [place] [facility] [address] [id number] [place] 1964 Feb, [facility] [place] [facility] [address] [id number] [place] [address]- 4915 Feb, [facility] [place] [facility] [address] [id number] [place] 4395 Feb, [facility] [place] [facility] [address] [id number] [place] [address]- 6182 Feb, [facility] [place] [facility] [address] [id number] [place] 5877 Feb, [facility] [place] [facility] [address] [id number] [place] [address]- 1072 Jan, [facility] [place] [facility] [address] [id number] [place] [address]- 3363 Jan, [facility] [place] [facility] [address] [id number] [place] [address]- 6308 Jan, [facility] [place] [facility] [address] [id number] [place] [address]- 6787 Jan, [facility] [place] [facility] [address] [id number] [place] [address]- 9604 Jan, [facility] [place] [facility] [address] [id number] [place] [address]- 8550 Jan, [facility] [place] [facility] [address] [id number] [place] [address]- 5848 Jan, [facility] [place] [facility] [address] [id number] [place] [address]- 0817 Jan, [facility] [place] [facility] [address] [id number], [place] [address]- 4085 Jan, [facility] [place] [facility] [address] [id number] [place] [address]- 8231 Dec, [facility] [place] [facility] [address] [id number] [place] [address]- 4215 Dec, [facility] [place] [facility] [address] [id number] [place] [address]- 9855 Dec, [facility] [place] [facility] [address] [id number] [place] [address]- 4748 Dec, 2013 [facility] [place] [facility] [address] [id number] [place] [address]- 8654 Dec, [facility] [place] [facility] [address] [id number] [place] [address]- 9678 Dec, 2013 [facility] [place] [facility] [address] [id number] [place] [address]- 0147 Dec, [facility] [place] [facility] [address] [id number] [place] [address]- 5765 Dec, [facility] [place] [facility] [address] [id number] [place] [address]- 4429 Dec, [facility] [place] [facility] [address] [id number] [place] [address]- 8031 Dec, [facility] [place] [facility] [address] [id number] [place] [address]- 9065 30 Nov, 2013 [facility] [place] [facility] [address] [id number] [place] [address]- 2611 30 Nov, 2013 [facility] [place] [facility] [address] [id number] [place] [address]- 2563 12 Nov, 2013 [facility] [place] [facility] [address] [id number] [place] [address]- 1550 12 Nov, 2013 [facility] [place] [facility] [address] [id number] [place] [address]- 2548 12 Nov, 2013 [facility] [place] [facility] [address] [id number] [place] [address]- 254 12 Nov, 2013 [facility] [place] [facility] [address] [id number] [place] [address]- 5766 11 Nov, 2013 [facility] [place] [facility] [address] [id number] [place] [address]- 2548 11 Nov, 2013 [facility] [place] [facility] [address] [id number] [place] [address]- 0295 Nov, [facility] [place] [facility] [address] [id number] [place] [address]- 1947 Nov, [facility] [place] [facility] [address] [id number] [place] [address]- 9187 Oct, [facility] [place] [facility] [address] [id number] [place] [address]- 6783 Oct, [facility] [place] [facility] [address] [id number] [place] [address]- 8220 Oct, [facility] [place] [facility] [address] [id number] [place] [address]- 8750 Oct, [facility] [place] [facility] [address] [id number] [place] [address]- 4032 Oct, [facility] [place] [facility] [address] [id number] [place] [address]- 9770 Oct, [facility] [place] [facility] [address] [id number] [place] [address]- 5505 Oct, [facility] [place] [facility] [address] [id number] [place] [address]- 3995 Oct, [facility] [place] [facility] [address] [id number] [place] [address]- 4855 Oct, [facility] [place] [facility] [address] [id number] [place] [address]- 0606 Oct, [facility] [place] [facility] [address] [id number] [place] [address]- 1048 Sep, [facility] [place] [facility] [address] [id number] [place] [address]- 1793 Sep, [facility] [place] [facility] [address] [id number] [place] [address]- 0509 Aug, [facility] [place] [facility] [address] [id number] [place] [address]- 9197 Aug, [facility] [place] [facility] [address] [id number], [place] [address]- 7299 Aug, [facility] [place] [facility] [address] [id number] [place] [address]- 8277 Aug, [facility] [place] [facility] [address] [id number] [place] [address]- 4550 Aug, [facility] [place] [facility] [address] [id number] [place] [address]- 1025 Aug, [facility] [place] [facility] [address] [id number] [place] [address]- 8388 Aug, [facility] [place] [facility] [address] [id number] [place] [address]- 5339 Aug, [facility] [place] [facility] [address] [id number] [place] [address]- 7991 Aug, [facility] [place] [facility] [address] [id number] [place] [address]- 8866 Aug, [facility] [place] [facility] [address] [id number] [place] [address]- 1398 Aug, [facility] [place] [facility] [address] [id number] [place] [address]- 8594 Aug, [facility] [place] [facility] [address] [id number] [place] [address]- 8771 July, [facility] [place] [facility] [address] [id number] [place] [address]- 2450 July, [facility] [place] [facility] [address] [id number] [place] [address]- 0502 July, [facility] [place] [facility] [address] [id number] [place] [address]- 0039 July, [facility] [place] [facility] [address] [id number] [place] [address]- 6251 July, [facility] [place] [facility] [address] [id number] [place] [address]- 4122 July, [facility] [place] [facility] [address] [id number] [place] [address]- 2563 July, [facility] [place] [facility] [address] [id number] [place] [address]- 2539 July, [facility] [place] [facility] [address] [id number] [place] [address]- 9059 Jun, [facility] [place] [facility] [address] [id number] [place] [address]- 1183 Jun, [facility] [place] [facility] [address] [id number] [place] [address]- 1674 May, [facility] [place] [facility] [address] [id number] [place] [address]- 3637 May, [facility] [place] [facility] [address] [id number] [place] [address]- 9835 May, [facility] [place] [facility] [address] [id number] [place] [address]- 6293 May, [facility] [place] [facility] [address] [id number] [place] [address]- 1674 May, [facility] [place] [facility] [address] [id number] [place] [address]- 4585 May, [facility] [place] [facility] [address] [id number] [place] [address]- 0844 May, [facility] [place] [facility] [address] [id number] [place] [address]- 6772 May, [facility] [place] [facility] [address] [id number] [place] [address]- 6888 Apr, [facility] [place] [facility] [address] [id number] [place] [address]- 2560 Apr, [facility] [place] [facility] [address] [id number] [place] [address]- 1808 Apr, [facility] [place] [facility] [address] [id number] [place] [address]- 4344 Apr, [facility] [address] [id number] [place] [address] Apr, [facility] [address] [id number] [place] [address] Apr, [facility] [address] [id number] [place] [address] Apr, [facility] [place] [facility] [address] [id number] [place] [address] Apr, [facility] [address] [id number] [place] [address] Mar, [facility] [address] [id number] [place] [address] Mar, [facility] [address] [id number] [place] [address] Mar, [facility] [address] [id number] [place] [address] Mar, [facility] [address] [id number] [place] [address] Mar, [facility] [address] [id number] [place] [address] Mar, [facility] [address] [id number], [place] [address] Mar, [facility] [place] [facility] [address] [id number], [place] [address] Mar, [facility] [place] [facility] [address] [id number], [place] [address] Mar, [facility] [place] [facility] [address] [id number], [place] [address] Mar, [facility] [place] [facility] [address] [id number], [place] [address] Feb, [facility] [place] [facility] [address] [id number] [place] [address] 09 Feb, 2013 [facility] [place] [facility] [address] [id number] [place] [address] Feb, [facility] [place] [facility] [address] [id number] [place] [address] Feb, [facility] [place] [facility] [address] [id number] [place] [address] Jan, [facility] [place] [facility] [address] [id number] [place] [address] Jan, [facility] [place] [facility] [address] [id number] [place] [address] Dec, [facility] [place] [facility] [address] [id number] [place] [address] 30 Dec, 2012 [facility] [place] [facility] [address] [id number] [place] [address] Dec, [facility] [place] [facility] [address] [id number] [place] [address]- [address] Dec, [facility] [place] [facility] [address] [id number] [place] [address] Dec, [facility] [place] [facility] [address] [id number] [place] [address] 18 Dec, 2012 [facility] [place] [facility] [address] [id number] [place] [address] 14 Dec, 2012 [facility] [place] [facility] [address] [id number] [place] [address] 14 Dec, 2012 [facility] [place] [facility] [address] [id number] [place] [address] Dec, [facility] [place] [facility] [address] [id number] [place] [address] Dec, [facility] [place] [facility] [address] [id number] [place] [address] Dec, [facility] [place] [facility] [address] [id number] [place] [address] Dec, [facility] [place] [facility] [address] [id number] [place] [address] Dec, [facility] [place] [facility] [address] [id number] [place] [address] Nov, [facility] [place] [facility] [address] [id number] [place] [address] Nov, [facility] [place] [facility] [address] [id number] [place] [address] Nov, [facility] [place] [facility] [address] [id number] [place] [address] Nov, [facility] [place] [facility] [address] [id number] [place] [address] Nov, [facility] [place] [facility] [address] [id number] [place] [address] Oct, [facility] [place] [facility] [address] [id number] [place] [address] Oct, [facility] [place] [facility] [address] [id number] [place] [address] Oct, [facility] [place] [facility] [address] [id number], [place] [address] Oct, [facility] [place] [facility] [address] [id number], [place] [address] Oct, [facility] [place] [facility] [address] [id number] [place] [address] Oct, [facility] [facility] [address] [id number], [place] [address] Oct, [facility] [facility] [address] [id number] [place] [address] Sep, [facility] [place] [facility] [address] [id number] [place] [address] Sep, [facility] [address] [id number] [place] [address] Sep, [facility] [address] [id number] [place] [address] Aug, [facility] [address] [id number] [place] [address] Aug, [facility] [address] [id number] [place] [address] Aug, [facility] [address] [id number] [place] [address] Aug, [facility] [address] [id number] [place] [address] July, [facility] [address] [id number] [place] [address] July, [facility] [address] [id number] [place] [address] July, [facility] [address] [id number] [place] [address] July, [facility] [address] [id number] [place] [address] Jun, [facility] [address] [id number] [place] [address] Jun, [facility] [address] [id number] [place] [address] May, [facility] [address] [id number] [place] [address] May, [facility] [address] [id number] [place] [id number] [address] Apr, [facility] [address] [id number] [place] [address] Apr, [facility] [place] [address] [id number] [place] [address] Feb, [facility] [address] [id number] [place] [address] Feb, [facility] [address] [id number] [place] [address] Feb, [facility] [place] [address] [id number] [place] [address] Feb, [facility] [address] [id number] [place] [address] Feb, [facility] [address] [id number] [place] [address] Feb, [facility] [address] [id number] [place] [address] Jan, [facility] [address] [id number] [place] [address] Jan, [facility] [address] [id number] [place] [address] Jan, [facility] [address] [id number] [place] [address] Jan, [facility] [place] [address] [id number] [place] [address] Jan, [facility] [address] [id number] [place] [address] Jan, [facility] [address] [id number] [place] [address] Jan, [facility] [address] [id number] [place] [address] Jan, [facility] [address] [id number] [place] [address] 15 Jan, 2012 [facility] [address] [id number], [place] [address] Jan, [facility] [address] [id number] [place] [address] Jan, [facility] [address] [id number] [place] [address] Jan, [facility] [address] [id number] [place] [address] 1495 Jan, [facility] [place] [address] [id number] [place] [address] Dec, [facility] [place] [address] [id number] [place] [address] Dec, [facility] [place] [facility] [address] [id number] [place] [address] Dec, [facility] [place] [address] [id number] [place] [address] Dec, [facility] [address] [id number] [place] [address] 407[address] Dec, [facility] [address] [id number] [place] [address] Dec, [facility] [address] [facility] [id number] [place] [address] Dec, [facility] [address] [id number], [place] [address] Nov, [facility] [address] [id number], [place] [address] Nov, [facility] [address] [id number] [place] [address] Oct, [facility] [address] [id number] [place] [address] Oct, [facility] [address] [facility] [id number] [place] [address]- [address] Sep, [facility] [address] [id number] [place] [address] 16 Sep, 2011 [facility] [address] [id number] [place] [address] Sep, [facility] [address] [id number] [place] [address] Sep, [facility] [address] [id number] [place] [address]- [address] July, [facility] [address] [id number] [place] [address] July, [facility] [address] [id number] [place] [address] July, [facility] [address] [id number] [place] [address] Jun, [facility] [address] [id number] [place] [address] Jun, [facility] [address] [id number] [place] [address] Jun, [facility] [address] [id number] [place] [address]- [address] Jun, [facility] [address] [id number] [place] [address] Jun, [facility] [address] [id number] [place] [address]- [address]89 Jun, [facility] [address] [id number] [place] [address]- 8784 Jun, [facility] [address] [id number] [place] [address]- 359[address] Jun, [facility] [address] [id number] [place] [address]106 Jun, [facility] [address] [id number] [place] [address]- [address] May, [facility] [facility] [address] [id number] [place] [address]- [address]479 May, [facility] [address] [id number] [place] [address]- 8252 May, [facility] [address] [id number] [place] [address]- [address]656 May, [facility] [facility] [address] [id number] [place] [address]- 4886 May, [facility] [address] [id number] [place] [address]- 9478 Apr, [facility] [address] [id number] [place] [address]- 2520 Mar, [facility] [address] [id number] [place] [address]- 7775 Mar, [facility] [address] [id number] [place] [address]- 1693 Feb, [facility] [address] [id number] [place] [address]- 2436 Feb, [facility] [facility] [address] [id number] [place] [address]- 3807 Feb, [facility] [address] [id number], [place] [address] Jan, [facility] [address] [id number], [place] [address] Dec, [facility] [address] [id number] [place] [address]- 4676 Dec, [facility] [address] [id number] [place] [address]- 0744 Dec, [facility] [address] [id number] [place] [address]- 8301 July, [facility] [address] [id number] [place] [address]- [address] 18 May, 2010 [facility] [address] [id number] [place] [address]- 1064 Feb, [facility] [address] [id number] [place] [address] 15 Feb, 2010 [facility] [address] [id number] [place] [address]- 8866 Feb, [facility] [address] [id number] [place] [address]- [address]444 Jan, [facility] [address] [id number] [place] [address]- 1555 Dec, [facility] [address] [id number] [place] [address]- 26[address] Dec, [facility] [address] [id number] [place] [address]- [address]100 Oct, [facility] [address] [id number] [place] [address]- 5468 July, [facility] [address] [id number] [place] [address]- 7536 Apr, [facility] [address] [id number] [place] [address]- 2350 Mar, [facility] [address] [id number] [place] [address]- 3636 Feb, [facility] [address] [id number] [place] [address]- 9837 Feb, [facility] [facility] [address] [id number] [place] [address]- 4162 Feb, [facility] [place] [facility] [address] [id number] [place] [address]- 6396 Feb, [facility] [place] [facility] [address] [id number] [place] [address]- 4[address] Feb, [facility] [address] [facility] [id number], [place] [address] Jan, [facility] [address] [id number], [place] [address] Jan, [facility] [address] [id number], [place] [address] Dec, [facility] [address] [id number], [place] [address] Nov, IMMUNIZATIONS No Known Immunizations SOCIAL HISTORY Never Assessed REASON FOR VISIT Other PLAN OF CARE VITAL SIGNS MEDICATIONS Unknown Medications RESULTS No Results PROCEDURES No Known procedures INSTRUCTIONS MEDICATIONS ADMINISTERED No Known Medications MEDICAL (GENERAL) HISTORY Type Description Date Medical History cardiovascular disease- has had sleep study in the past, did not tolerate C-pap mask, has since been on home oxygen Medical History hypertension Medical History asthma Medical History gastroesophageal reflux disease (GERD) Medical History Arthritis - left hand x-rays "moderate amount of osteoarthritis in several joins of the left hand:- referred to dr amaya 2008. Medical History peptic ulcer disease- pt reports that an ulcer and hiatal hernia were found on EGD in the past Medical History Gastric ulcer Medical History Endocrine disorder- pre-diabetes Medical History Gatrointestinal disorder fatty liver disease Medical History HIDA Scan (07/2011) Normal Medical History EGD (11/2011) small hiatal hernia, mild gastritis, H Pylori negative Medical History RUQ ultrasound (11/2012) fatty liver, no gallbladder abnormalities Medical History 02/2009- Orthopedic Disorder - b/l foot pain, neuropathy, hx of neuroma Medical History backache- hx of "bulding discs" Medical History Hypothyroidism with elevated thyroid antibodies-ref to Dr. Claire Medical History PPV23 (PNEUMOVAX) DX Medical History Sacroiliitis, not elsewhere classified Medical History Obstructive sleep apnea (adult) Medical History 04/2014 Colonoscopy with Polyp Needs every 2 years Surgical History orthopedic Surgery Surgical History cholecystectomy Surgical History EGD and Colonoscopy 2016 Surgical History Heart Cath 04/2016 Surgical History Rotator cuff 05/2016 Surgical History Right knee replacment 01/27/2017
--- OUTSIDE RECORDS SUMMARY | 2017-06-16 06:11 | XMS REPORT ---
Author Author TAMMY COPELAND [facility] Address [address] [place] [address] Care Team Providers Care Mechanical Artist Name Role Phone TAMMY COPELAND Unavailable PROBLEMS Type Condition ICD9-CM Code JSV19-GG Code Onset Dates Condition Status SNOMED Code Problem Bronchitis J40 Active 58297495 Problem Other specified hypothyroidism E03.8 Active 643513114 Problem Restless legs syndrome G25.81 Active 580281486 Problem Chronic superficial gastritis without bleeding K29.30 Active 197260011 Problem Dyspnea, unspecified R06.00 Active 933810822 Problem Dyspnea on exertion R06.09 Active 67930824 Problem GERD with esophagitis K21.0 Active 045333724 Problem Left upper quadrant pain R10.12 Active 906653818 Problem Essential hypertension I10 Active 26044825 Problem IRVIN (obstructive sleep apnea) G47.33 Active 45272994 Problem Rupture of tendon of right shoulder S46.911A Active 978816011 Problem Supraspinatus tendon tear, left, subsequent encounter S46.812D Active 078031894 Problem Asthma J45.909 Active 803968941 Problem Infraspinatus tendon tear, left, subsequent encounter S46.812D Active 1564699 Problem Asthma with acute exacerbation J45.901 Active 294065017 ALLERGIES No Information SOCIAL HISTORY Never Assessed PLAN OF CARE VITAL SIGNS MEDICATIONS Unknown Medications RESULTS No Results PROCEDURES No Known procedures IMMUNIZATIONS No Known Immunizations MEDICAL (GENERAL) HISTORY Type Description Date Medical [...] History cholecystectomy Surgical History EGD and Colonoscopy 2015 Surgical History Heart Cath 04/2016 Surgical History Rotator cuff 05/2016
[2017-06-16] MEDS ORDERED: CEFUROXIME 1.5 GM (ZINACEF) VIAL ONE (06:55)
[2017-06-16] MEDS ORDERED: NS (IVPB) 100 ML ONE (06:55)
[2017-06-16] MEDS ORDERED: FAMOTIDINE 20MG/2ML IV (PEPCID) ONE (06:55)
[2017-06-16] MEDS ORDERED: CEFUROXIME INJECTION 1,500 MG in NS (IVPB) 100 ML IV ONE (07:00)
[2017-06-16] MEDS ORDERED: FAMOTIDINE 20MG/2ML IV (PEPCID) IV ONE (07:00)
[2017-06-16] MEDS ORDERED: proPOfol 200 MG/20 ML (DIPRIVAN) VIAL IV ONE (07:07)
[2017-06-16] MEDS ORDERED: LIDOCAINE PF 2% 5 ML (XYLOCAINE) VIAL ONE (07:07)
[2017-06-16] MEDS ORDERED: SEVOFLURANE (ULTANE) 15 ML INHAL SOLN ONE ×2 (07:07→09:15)
[2017-06-16] MEDS ORDERED: fentaNYL INJECTION 100 MCG/2 ML AMP ONE ×3 (07:08→10:14)
[2017-06-16] MEDS ORDERED: MIDAZOLAM 2 MG/2 ML (VERSED) VIAL ONE (07:08)
[2017-06-16] MEDS ORDERED: morphine PCA 30 MG/30 ML VIAL IV PRN (07:30)
[2017-06-16] MEDS: LACTATED RINGERS 1,000 ML IV PRN ×2 (07:30→09:17)
[2017-06-16] MEDS ORDERED: diphenhydrAMINE 50 MG/ML INJ (BENADRYL) IVP PRN (07:30)
[2017-06-16] MEDS ORDERED: ACETAMINOPHEN 325 MG TABLET/CAPLET (TYLENOL) PO PRN (07:30)
--- NOTE | 2017-06-16 07:30 | Progress Note-Pre Operative ---
Pre-Operative Progress Note H&P Reviewed The H&P was reviewed, patient examined and no changes noted. Date Seen by Provider: Jun 16, 2017 Time Seen by Provider: 07:20 Date H&P Reviewed: Jun 16, 2017 Time H&P Reviewed: 07:11 Pre-Operative Diagnosis: left knee primary osteoarthritis TAE RUTH MD Jun 16, 2017 07:30
--- NOTE | 2017-06-16 07:31 | Progress Note-Post Operative ---
Post-Operative Progess Note Surgeon (s)/Microbiology Coordinator (s) Surgeon TAE RUTH MD Microbiology Coordinator: fan Perez Pre-Operative Diagnosis left knee primary osteoarthritis Post-Operative Diagnosis left knee primary osteoarthritis Procedure & Operative Findings Date of Procedure 06/16/17 Procedure Performed/Findings left total knee arthroplasty Anesthesia Type GETA Estimated Blood Loss Estimated blood loss (mL): minimal Specimens/Packing Specimens Removed none Packing: none TAE RUTH MD Jun 16, 2017 07:31
--- NOTE | 2017-06-16 07:33 | D/C HH Face to Face Order ---
D/C Face to Face Orders Instructions for Patient Patient Instructions/FollowUp: three weeks Physician to follow Patient: three weeks Discharge Diet for Home: Regular Diet Patient Data-Allergies,Ht & Wt Patient Allergies: Coded Allergies: hydrocodone (Verified Allergy, Unknown, HAS HAD PERCOCET & MORPHINE IN THE PAST W/O ISSUE, 06/10/16) Height (Feet): 5 Height (Inches): 11.00 Weight (Pounds): 320 Weight (Ounces): 0.0 Home Health Need/Face to Face Date of Face to Face: Jun 16, 2017 Clinical Findings: Instability, Muscle weakness, Non or partial weight bearing , Pain with ambulation, Unsteady gait I have seen Pt [id number]: Yes Discharged To: Home Diagnosis/Conditions: left total knee arthroplasty Problems/Diagnosis/Condition: Patient is Homebound due to: Lazaro fall risk due to instabilty, Muscle weakness , Pain w/ambulation Homebound Status Due to the above stated illness, injury or surgical procedure (medical condition or diagnosis) and associated clinical findings, the patient is homebound because of his/her inability to leave home except with aid of a supportive device and/or person AND leaving the home requires a considerable and taxing effort or is medically contraindicated. Pt req the following assistanc: [facility] Nursing Orders Home Health Services Order: Physical Therapy-Evaluate & Treat Therapy Orders Therapy Orders: PT to assess for OT Certify Stmt I certify that this patient is under my care and that I, a nurse practitioner or a physician; a assistant elementary teacher working with me, had a face to face encounter that - meets the physician face to face encounter requirements with this patient as dated. TAE RUTH MD Jun 16, 2017 07:33
[2017-06-16] MEDS ORDERED: OXYC-197 PO (07:34)
[2017-06-16] MEDS ORDERED: INTRA-ARTICULAR IU ONE ×5 (07:45)
[2017-06-16] MEDS: NS IV 1000 ML 1,000 ML IV SCH ×3 (07:45→20:19)
[2017-06-16 07:53] VITALS: BP 183/96
[2017-06-16] MEDS ORDERED: SUCCINYLCHOLINE INJ 100 MG/5 ML SYR ONE (08:05)
[2017-06-16] MEDS ORDERED: ROCURONIUM 10 MG/ML 5 ML SYRINGE IV ONE (08:05)
[2017-06-16] MEDS ORDERED: DEXAMETHASONE 10 MG/ML (DECADRON) 1 ML VIAL ONE (08:05)
[2017-06-16] MEDS ORDERED: LABETALOL HCL 20 MG/4 ML VIAL ONE (08:05)
[2017-06-16] MEDS ORDERED: morphine INJ 10 MG/ML 1ML (SYR OR VIAL) ONE (09:11)
[2017-06-16] MEDS: morphine INJ 10 MG/ML 1ML (SYR OR VIAL) IVP PRN ×2 (09:50→09:55)
[2017-06-16] MEDS: HYDROmorphone (DILAUDID) 2 MG/ML VIAL IVP PRN ×3 (09:59→10:19)
[2017-06-16] MEDS ORDERED: ONDANSETRON 4 MG/2 ML (SDV) Z0FRAN IVP PRN (10:00)
--- NOTE | 2017-06-16 10:13 | Progress Note-Standard ---
Standard Progress Note Progress Notes/Assess & Plan Date Seen by Provider: Jun 16, 2017 Time Seen by Provider: 10:12 Progress/Assessment & Plan post op check No complaints radiographs--HW well positioned. no fractures LLE--sym DP pulse with brisk cap refill. sensation intact throughout. intact DF and PF of toes and ankle s/p LTKA mobilize as able TAE RUTH MD Jun 16, 2017 10:13
--- NOTE | 2017-06-16 10:25 | Diagnostic Imaging Report ---
INDICATION: Status post left total knee replacement. Time of exam: 10:01 AM Two views of the left knee demonstrate postop changes of total knee arthroplasty. The prosthetic elements appear to be in good position without fracture or loosening. There are overlying skin neli noted. A small calcific density noted along the lateral aspect of the jointline is noted, perhaps calcification within the lateral collateral ligament complex. IMPRESSION: Satisfactory postop left knee. Dictated by: Dictated on workstation # [id number]
[2017-06-16] MEDS ORDERED: fentaNYL INJECTION 100 MCG/2 ML AMP IVP PRN ×2 (10:30)
--- NOTE | 2017-06-16 10:33 | Anesthesia-General Post-Op ---
General Patient Condition Mental Status/LOC: Same as Preop Cardiovascular: Satisfactory Nausea/Vomiting: Absent Respiratory: Satisfactory Pain: Controlled Complications: Absent Post Op Complications Complications None Follow Up Care/Instructions Patient Instructions None needed. Anesthesia/Patient Condition Patient Condition Patient is doing well, no complaints, stable vital signs, no apparent adverse anesthesia problems. No complications reported per nursing. LUANN ACUNA CRNA Jun 16, 2017 10:33
[2017-06-16 12:00] VITALS: BP 168/77
[2017-06-16] MEDS: SENNA W/DOCUSATE (SENOKOT S) TABLET PO SCH ×2 (12:53→20:19)
--- NOTE | 2017-06-16 13:43 | Physical Therapy Evaluation ---
PT Evaluation-General Medical Diagnosis Admission Date Jun 16, 2017 at 06:02 Medical Diagnosis: left TKA Onset Date: Jun 16, 2017 Therapy Diagnosis Therapy Diagnosis: impaired mobility, strength, endurance, ROM Height/Weight Height (Feet): 5 Height (Inches): 11.00 Weight (Pounds): 320 Weight (Ounces): 0.0 Precautions Precautions/Isolations: Fall Prevention, Standard Precautions Weight Bear Status Left Lower Extremity: Left Weight Bearing/Tolerated Referral Physician: Bandar Perez Reason for Referral: Evaluation/Treatment Medical History Pertinent Medical History: HTN, Hypothroidism, Neuropathy, OA Additional Medical History PAST MEDICAL HISTORY: Sleep apnea, hypertension, asthma, reflux, osteoarthritis, peptic ulcer disease, hiatal hernia, gastric ulcer, prediabetes, fatty liver, neuropathy back pain, RLS and hypothyroidism. PAST SURGICAL HISTORY: Cholecystectomy, right total knee arthroplasty, left rotator cuff. Reviewed History: Yes Social History Home: Single Level Current Living Status: Spouse Entry Into Home: Stairs With Railing PT Steps Into Home: 3 Prior/Core FIM Prior Level of Function Functional [place] Measure 0=Not Assessed/NA 4=Minimal Assistance 1=Total Assistance 5=Supervision or Setup 2=Maximal Assistance 6=Modified [place] 3=Moderate Assistance 7=Complete [place] Bed Mobility: 7 Transfers (B,C,W/C) (FIM): 7 Gait: 6 Patient states that he has a single point cane that he uses on occasion PT Evaluation-Current Subjective Patient in bed pre tx, agrees to PT but states that he is very "woozy" just laying in bed and that he is "all drugged up" and that he would prefer to not get out of bed at this time. He does agree to exercises and getting his CPM on. Patient states he has 9/10 pain in his left knee. Patient does appear to be very drowsy and tends to slur his words and is not quite appropriate with conversation. Pt/Family Goals to be independent at home Objective Patient Orientation: Person, Place, Situation Attachments: SCD's, Oxygen, Polar Pack, IV 3L of O2 nasal canula ROM/Strength ROM Lower Extremities left knee flexion 80 degrees, extension +5 degrees Strength Lower Extremities NT Sensory Vision: Functional Hearing: Functional Sensation Right Lower Extremit: Intact Sensation Left Lower Extremity: Intact Sensation Lower Extremities Patient has intact light touch sensation in the left leg below the knee but at the same time states that his leg is still pretty numb Transfers Functional [place] Measure 0=Not Assessed/NA 4=Minimal Assistance 1=Total Assistance 5=Supervision or Setup 2=Maximal Assistance 6=Modified [place] 3=Moderate Assistance 7=Complete [place] Treatment left TKA supine exercises x10 (AP, QS, HS, SAQ, SLR), CPM donned at 60 degrees flexion and -2 degrees extension Assessment/Needs patient has impaired strength, mobility, ROM post left TKA, danni is still very drowsy from anesthesia/medication and will not be getting out of bed this treatment Rehab Potential: Fair PT Short Term Goals Short Term Goals Time Frame: Jun 23, 2017 Transfers (B,C,W/C) (FIM): 5 Gait (FIM): 2 Gait Distance Comment: 50' Gait Level of Assist: 5 Gait Assistive Device: FWW PT Plan Problem List Problem List: Activity Tolerance, Functional Strength, Safety, Balance, Gait, Transfer, Bed Mobility, ROM Treatment/Plan Treatment Plan: Continue Plan of Care Treatment Plan: Bed Mobility, Education, Functional Activity Anu, Functional Strength, Gait, Safety, Therapeutic Exercise, Transfers Treatment Duration: Jun 23, 2017 Frequency: 11 times per week Estimated Hrs Per Day: .25 hour per day (15-30') Patient and/or Family Agrees t: Yes Safety Risks/Education Patient Education: Reviewed Precautions, Reviewed Use of Ice, Correct Positioning, Disease Process, Safety Issues Teaching Recipient: Patient Teaching Methods: Demonstration, Discussion Response to Teaching: Reinforcement Needed Discharge Recommendations Plan Patient will perform bed mobility and transfer training, balance and endurance training, functional strengthening, stair training, gait training, and education , to improve functional mobility and independence at home. Therapy D/C Recommendations: Home w/ Family Support Time/GCodes Time In: 1315 Time Out: 1335 Total Billed Treatment Time: 20 Total Billed Treatment 1 visit EVM 20' RACHELLE BRONSON PT Jun 16, 2017 13:43
--- NOTE | 2017-06-16 14:09 | Consultation (CHS) ---
HPI History of Present Illness: 66 yo male admitted after L TKA, I am consulted for medical management. Mr. Desir denies concerns and gives very brief answers to questions. Source: patient Date seen by provider: Jun 16, 2017 Time Seen by Provider: 13:55 Attending Physician Gen Vincent MD PCP Amy Leos Consult Date of Admission Jun 16, 2017 at 6:02 am Home Medications Home Medications Reviewed patient Home Medication Reconciliation performed by pharmacy medication reconciliations electrical and instrument technician and/or nursing. Patients Allergies have been reviewed. Allergies Coded Allergies: hydrocodone (Verified Allergy, Unknown, HAS HAD PERCOCET & MORPHINE IN THE PAST W/O ISSUE, 06/10/16) GHS-Tednqw-Zhsqku Hx Patient Social History Alcohol Use: Rarely Uses Recreational Drug Use: No Smoking Status: Former Smoker Former smoker/When Quit: Mar 22, 1979 Type Used: Cigarettes Recent Foreign Travel: No Contact w/other who traveled: No Recent Hopitalizations: No Recent Infectious Disease Expo: No Physical Abuse Screen: No Sexual Abuse: No Immunizations Up To Date Tetanus Booster (TDap): Less than 5yrs Date of Pneumonia Vaccine: Mar 22, 2014 Date of Influenza Vaccine: Dec 10, 2016 Past Medical History MedHx: GERD HTN Restless leg syndrome Hypothyroidism Asthma SurgHx: Left TKA Family Medical History Significant Family History: CAD Over 55 Years Old, Diabetes, Hypertension Review of Systems ([facility]) Constitutional: no symptoms reported EENTM: no symptoms reported Respiratory: No short of breath Cardiovascular: No chest pain Gastrointestinal: no symptoms reported Genitourinary: no symptoms reported Musculoskeletal: see HPI Skin: no symptoms reported Psychiatric/Neurological: No Symptoms Reported Physical Exam-([facility]) Physical Exam Vital Signs VS - Last 72 Hours, by Label 06/16/17 06/16/17 06/16/17 06/16/17 07:53 11:00 12:00 12:16 Temp 99.0 97.4 Pulse 74 61 Resp 18 18 18 B/P (MAP) 183/96 (125) 168/77 (107) Pulse Ox 94 95 O2 Delivery Room Air Nasal Cannula Room Air O2 Flow Rate 3.00 06/16/17 14:20 Pulse Ox 94 O2 Delivery Nasal Cannula O2 Flow Rate 3.00 Capillary Refill : General Appearance: WD/WN, no apparent distress Respiratory: lungs clear, normal breath sounds Cardiovascular: regular rate, rhythm, no murmur Extremities: other (left knee wrapped and on mobilization device) Neurologic/Psychiatric: alert Skin: normal color, warm/dry Assessment/Plan Assessment/Plan Admission Dx s/p left TKA (1) Status post left knee replacement Status: Acute (2) Hypertension Status: Chronic Assessment & Plan: Resume home quinapril, hydrochlorothiazide, amlodipine Qualifiers: Qualified Codes: I10 - Essential (primary) hypertension (3) Hypothyroidism Status: Chronic Assessment & Plan: Resume home levothyroxine (4) GERD (gastroesophageal reflux disease) Status: Chronic Assessment & Plan: Resume home omeprazole (5) Asthma Status: Chronic Assessment & Plan: Therapeutic sub Advair for home Symbicort Qualifiers: Clinical Quality Measures DVT/VTE Risk/Contraindication: Risk Factor Score Per Nursin RFS Level Per Nursing on Admit: 4+=Very High EUGENE HARRINGTON MD Jun 16, 2017 2:09 pm
--- NOTE | 2017-06-16 15:01 | OPERATIVE REPORT ---
DATE OF SERVICE: 06/16/2017 PREOPERATIVE DIAGNOSIS: Left knee primary osteoarthritis. POSTOPERATIVE DIAGNOSIS: Left knee primary osteoarthritis. PROCEDURE: Left total knee arthroplasty. SURGEON: Gen Ruth MD. SCUBA DIVER: KAE Tena, who assisted throughout the procedure and closed the incisions. ANESTHESIA: General endotracheal by Paula Morales CRNA. TOURNIQUET TIME: 90 minutes at 300 mmHg. ESTIMATED BLOOD LOSS: Minimal. DRAINS: None. COMPLICATIONS: None. POSTOPERATIVE PLAN: Routine protocol. MATERIALS: MicroPort cemented size 6 femur, cemented size 6+ tibia with a 10 mm insert and a cemented size 35 patella. The patient was transferred to recovery room awake in stable condition. STATEMENT OF MEDICAL NECESSITY: The patient is a 66-year-old gentleman with progressively worsening left knee primary osteoarthritis. Radiographs revealed severe tricompartmental osteoarthritis. He has undergone treatment with injections, anti-inflammatories and rest. Due to functional impairment and progressive symptoms, and failure to improve with conservative measures, the patient elected to proceed with surgical intervention. PROCEDURE: After risks and benefits of procedure were discussed and questions were answered and informed consent was signed and placed on chart, the operative site was confirmed in the preoperative holding area initialed by the surgeon. The patient was then transported to the operating room and after adequate levels of general endotracheal anesthetic were seen. A time out call confirmed the operative site. Examination under anesthesia was performed which revealed range of motion of 0/4/95. The left lower extremity was then prepped and draped in the usual sterile fashion. With the leg elevated and the knee flexed, tourniquet was inflated to 300 mmHg. Standard anterior approach was utilized. Hemostasis was obtained with cautery. Medial parapatellar arthrotomy was performed leaving 1 cm cuff on the patella for a later reattachment. A portion of the fat pad was resected and the ACL was resected. The custom made block was placed on the distal femur and was pinned into position. The distal cutting block was placed and the cuts were made. A 6 cutting block was then placed as per determined by the custom block and cuts were made from posterior to anterior. Subperiosteal release was then carefully performed and the posterior distal femur, being careful to stay on the bony surface with a curved osteotome. The tibial guide was then placed and pinned into position. The tibial cut was made. The 6+ baseplate was placed and the drop william transected the intramedullary access and it was felt to be in excellent position. This was then prepared with a drill and keel punch. The femoral trial was placed and the trochlear cut was made. The patella was then prepared using freehand technique by resecting 10 mm off the undersurface. The peg guide was placed and peg holes were drilled. Trials were inserted. A 10 mm insert was placed, a 35 mm button was placed on the patella. Full extension was easily obtained 120 degrees of flexion with gravity was easily obtained. There was no anterior/posterior or medial/lateral laxity in flexion or extension. The trials were removed. The joint was irrigated with pulse lavage. The periarticular block was placed in the posterior capsule, medial and lateral retinaculum extensor mechanism and subcutaneous tissues. The joint was further irrigated. The bone were irrigated and dried. The tibial baseplate was cemented into position. Excess cement was removed. The superior surface was irrigated and dried. The polyethylene insert was placed. The distal femur was irrigated and dried and the femoral prosthesis was cemented into position and excess cement was removed. The knee was brought out in full extension until the cement had cured. The undersurface of patella was irrigated and dried and the patellar button was cemented into position. Excess cement was removed. Once the cement had cured, the knee was taken through range of motion. Full extension was easily obtained 120 degrees of flexion with gravity was easily obtained. The patella tracked well. There was no varus/valgus or anterior/posterior laxity in flexion or extension. The joint was further irrigated with pulse lavage. The arthrotomy was closed with #2 Tevdek in a [id number] interrupted fashion. The knee was flexed. The patella tracked well with no undue tension at the repair site. The subcutaneous tissues were irrigated using a total of 6 liters throughout the procedure. A 0 Vicryl was used for deep subcutaneous tissue, 2-0 Vicryl for the superficial subcutaneous tissue, neli used on the skin. A soft dressing was applied and the tourniquet was deflated. The patient was transferred to the recovery room awake and in stable condition. Job ID: [id number] DocumentID: [id number] Dictated Date: 06/16/2017 09:44:53 Personnel Clerks Supervisor Date: 06/16/2017 14:59:58 Dictated By: GEN RUTH MD
[2017-06-16] MEDS: CEFUROXIME INJECTION 750 MG in NS (IVPB) 100 ML IV SCH (15:03)
[2017-06-16 16:48] VITALS: BP 156/70
[2017-06-16] MEDS: RT-ADVAIR HFA 115/21 MCG PER PUFF IH SCH (19:05)
[2017-06-16 19:59] VITALS: BP 159/74
[2017-06-16] MEDS: LEVOTHYROXINE 100 MCG (LEVOTHROID) TAB PO SCH (20:19)
[2017-06-16] MEDS: LEVOTHYROXINE 50 MCG (LEVOTHROID) TAB PO SCH (20:19)
[2017-06-16] MEDS: GABAPENTIN 300 MG (NEURONTIN) CAP PO SCH (20:19)
[2017-06-16] MEDS ORDERED: NON-FORMULARY MEDICATION 1 EA EA (Levothyroxine Sodium 200 MCG) PO SCH (21:00)
[2017-06-16] MEDS ORDERED: PANTOPRAZOLE 20 MG TABLET (PROTONIX) PO SCH (21:00)
[2017-06-16] MEDS ORDERED: OMEPRAZOLE 20 MG (PriLOSEC) CAP NON-FORMULARY PO SCH (21:00)
[2017-06-17] MEDS: CEFUROXIME INJECTION 750 MG in NS (IVPB) 100 ML IV SCH (00:21)
[2017-06-17 00:32] VITALS: BP 158/74
[2017-06-17 04:34] VITALS: BP 148/78
[2017-06-17] MEDS: MULTIVIT W/MINERALS TAB (THERAGRAN M) PO SCH (05:49)
[2017-06-17] MEDS: RT-ADVAIR HFA 115/21 MCG PER PUFF IH SCH ×2 (06:19→22:10)
[2017-06-17 06:24] LABS: HEMOGLOBIN 10.9 G/DL (13.3-17.7)
--- NOTE | 2017-06-17 07:54 | Progress Note-Standard ---
Standard Progress Note Progress Notes/Assess & Plan Date Seen by Provider: Jun 17, 2017 Time Seen by Provider: 07:53 Progress/Assessment & Plan post op check No complaints radiographs--HW well positioned. no fractures LLE--sym DP pulse with brisk cap refill. sensation intact throughout. intact DF and PF of toes and ankle s/p LTKA mobilize as able Final Diagnosis no complaints Vital Signs Date Time Temp Pulse Resp B/P (MAP) Pulse Ox O2 Delivery O2 Flow Rate FiO2 06/17/17 06:22 98 Nasal Cannula 2.00 06/17/17 04:34 97.7 65 17 148/78 (101) 97 Room Air 06/17/17 02:27 96 Nasal Cannula 1.00 06/17/17 00:32 97.9 65 17 158/74 (102) 95 Room Air 06/16/17 21:00 Nasal Cannula 3.00 06/16/17 20:57 98 Nasal Cannula 2.00 06/16/17 19:59 96.9 71 16 159/74 (102) 96 06/16/17 19:05 96 Nasal Cannula 3.00 06/16/17 16:48 96.7 65 16 156/70 (98) 98 Room Air 06/16/17 14:20 94 Nasal Cannula 3.00 06/16/17 12:16 18 06/16/17 12:00 97.4 61 18 168/77 (107) 95 Room Air 06/16/17 11:00 Nasal Cannula 3.00 I & O 06/17/17 07:00 Intake Total 5080 ml Output Total 1025 ml Balance 4055 ml Laboratory Tests Test 06/17/17 05:25 Range/Units Hemoglobin 10.9 L 13.3-17.7 G/DL Hematocrit 32 L 40-54 % LLE--dressing intact. NVI distally neg SLR s/p LTKA mobilize TAE RUTH MD Jun 17, 2017 07:54
[2017-06-17 08:00] VITALS: BP 170/101
[2017-06-17] MEDS: amLODIPine 10 MG (NORVASC) TAB PO SCH (08:17)
[2017-06-17] MEDS: HYDROCHLOROTHIAZIDE 25 MG (HCTZ) TAB PO SCH (08:17)
[2017-06-17] MEDS: SENNA W/DOCUSATE (SENOKOT S) TABLET PO SCH ×2 (08:17→20:33)
[2017-06-17] MEDS: ASPIRIN E.C. 81 MG (ECOTRIN) TAB PO SCH (08:17)
[2017-06-17] MEDS: ENOXAPARIN 30 MG/0.3 ML (LOVENOX) SYR SC SCH ×2 (08:18→20:33)
[2017-06-17] MEDS: NS IV 1000 ML 1,000 ML IV SCH ×2 (08:18→15:33)
[2017-06-17] MEDS: FLUTICASONE NASAL SPRAY (FLONASE) 16 GM BTL NS SCH (08:18)
[2017-06-17] MEDS: QUINAPRIL 20 MG (ACCUPRIL) TAB PO SCH (08:20)
[2017-06-17] MEDS ORDERED: NON-FORMULARY MEDICATION 1 EA EA (Hydrochlorothiazide 50 MG) PO SCH (09:00)
[2017-06-17] MEDS ORDERED: [UNRECOGNIZED DRUG - REMARK] NS SCH (09:00)
[2017-06-17] MEDS: oxyCODONE/APAP 5/325MG (PERCOCET 5) TABLET PO PRN ×3 (09:29→17:34)
--- NOTE | 2017-06-17 10:11 | Physical Therapy Daily Note ---
PT Daily Note-Current Subjective Patient agrees to PT. Pain Numeric Pain Scale: 10-Worst Possible Pain Location: Left Location Body Site: Knee Pain Description: Acute Mental Status Patient Orientation: Normal For Age Attachments: Oxygen, IV Transfers Functional [place] Measure 0=Not Assessed/NA 4=Minimal Assistance 1=Total Assistance 5=Supervision or Setup 2=Maximal Assistance 6=Modified [place] 3=Moderate Assistance 7=Complete IndependenceIRFPAI Quality Coding Scale 6 Independent with activity with or without an assistive device 5 Patient requires set up or clean up by helper. Patient completes activity by themselves 4 Supervision or touching assist (CGA). [place] provide cues , steadying assist 3 The helper provides less than half the effort to complete the activity 2 The helper provides more than half the effort to complete the activity 1 Dependent. The helper does all the effort to complete an activity 7 Patient refused to complete or attempt activity 9 The patient did not perform the activity before the current illness or injury 88 Not attempted due to Medical conditions or safety concerns Transfers (B, C, W/C) (FIM): 5 Scootin Rollin Supine to/from Sit: 5 Sit to/from Stand: 5 Bed to/from Chair: 5 Weight Bearing Left Lower Extremity: Left Weight Bearing/Tolerated Gait Training Gait (FIM): 2 Distance (FIM): 5=533-56 ft Distance: 55' Gait Level of Assist: 4 Gait Persons Needed: 1 Gait Assistive Device: FWW very slow and antalgic Exercises Supine Ex: Ankle pumps, Quad Set, Heel Slides Supine Reps: 15 Seated Therapy Exercises: Ankle pumps, Long arc quads Seated Reps: 15 Assessment Patient is up in recliner with needs met. PT to increase activity as tolerated by patient. PT Short Term Goals Short Term Goals Time Frame: Jun 23, 2017 Transfers (B,C,W/C) (FIM): 5 Gait (FIM): 2 Gait Distance Comment: 50' Gait Level of Assist: 5 Gait Assistive Device: FWW PT Plan Treatment/Plan Treatment Plan: Continue Plan of Care Treatment Plan: Bed Mobility, Education, Functional Activity Anu, Functional Strength, Gait, Safety, Therapeutic Exercise, Transfers Treatment Duration: Jun 23, 2017 Frequency: 11 times per week Estimated Hrs Per Day: .25 hour per day (15-30') Patient and/or Family Agrees t: Yes Time/GCodes Time In: 901 Time Out: 924 Total Billed Treatment Time: 23 Total Billed Treatment 1 visit EX 11 min GT 12 min JUNIOR ROGERS PT Jun 17, 2017 10:11
[2017-06-17] MEDS ORDERED: PANTOPRAZOLE 20 MG TABLET (PROTONIX) PO NR (10:30)
[2017-06-17] MEDS: ANTACID SUSP 30 ML UDC (MYLANTA) PO PRN ×2 (10:38→17:34)
[2017-06-17] MEDS: ONDANSETRON 4 MG/2 ML (SDV) Z0FRAN IVP PRN ×2 (10:38→17:34)
--- NOTE | 2017-06-17 11:41 | Occupational Therapy Eval ---
OT Evaluation-General/PLF Medical Diagnosis Admission Date Jun 16, 2017 at 06:02 Medical Diagnosis: left TKA Onset Date: Jun 16, 2017 Therapy Diagnosis Therapy Diagnosis: Decreased ADL skills Height/Weight Height (Feet): 5 Height (Inches): 11.00 Weight (Pounds): 320 Weight (Ounces): 0.0 Precautions Precautions/Isolations: Fall Prevention Safety Interventions: None Weight Bear Status Weight Bearing Restriction: Weight Bearing/Tolerated Referral Physician: Bandar Perez Referral Reason: Activity Tolerance, Self Care, Evaluation/Treatment, Strengthening/ROM Medical History Pertinent Medical History: HTN, Hypothroidism, Neuropathy, OA Additional Medical History Peptic ulcer disease, hiatal hernia, cholecystectomy, Right TKA, left rotator cuff repair Current History Pt. had right knee repaired in January. Reviewed History: Yes Social History Home: Single Level Current Living Status: Spouse Entry Into Home: Stairs With Railing Steps Into Home: 3 ADL-Prior Level of Function ADL PLOF Comments Pt. states that he was independent prior to this hospitalization. DME/Equipment: Tub/Shower DME/Equipment Comments Pt. states that he does not have a shower seat or adaptive equipment. Spouse states that buying these things are not an option. Spouse states that she has some trouble with donning KT hose. OT offered to show them KT hose mani. Spouse states that since Medicare does not cover it, there is no need. Pt. has a walker, but states that he is getting a bigger one. 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 reports 10/10 pain right now. States that he is on a [employer], but that he feels that the medicine is hurting his ulcer/hernia. Nursing is aware of this and will try to get him to pill form. Appearance Pt. in bed. States that he has just returned to bed. Pt. reporting pain. Spouse in room. Talk to him and spouse in length regarding home set up, equipment needs, rehab course. Mental Status/Objective Patient Orientation: Person, Place, Time, Situation Attachments: IV, Oxygen Current Hand Dominance: Right Upper Extremity ROM WFL. Pt. states that he has had no difficulty with UE ROM or strength, even after RCR. Upper Extremity Strength WFL bilateral UE ADL-Treatment Functional [place] Measure 0=Not Assessed/NA 4=Minimal Assistance 1=Total Assistance 5=Supervision or Setup 2=Maximal Assistance 6=Modified [place] 3=Moderate Assistance 7=Complete IndependenceIRFPAI Quality Coding Scale 6 Independent with activity with or without an assistive device 5 Patient requires set up or clean up by helper. Patient completes activity by themselves 4 Supervision or touching assist (CGA). [place] provide cues , steadying assist 3 The helper provides less than half the effort to complete the activity 2 The helper provides more than half the effort to complete the activity 1 Dependent. The helper does all the effort to complete an activity 7 Patient refused to complete or attempt activity 9 The patient did not perform the activity before the current illness or injury 88 Not attempted due to Medical conditions or safety concerns Other Treatments OT talked to pt. and spouse about possible equipment needs. Educated spouse on easier way to don KT hose. Pt. declines out of bed activity at this time, but OT educates him on possible shower tomorrow, if he is feeling better. Pt. agrees. Pt. and spouse state that he has been up in chair, and just got back to bed. Pt. in pain while OT talking to him, and nursing aware of needs. Education OT Patient Education: Correct positioning, Purpose of tx/functional activities , Reviewed precautions, Rehab process, Transfer techniques Teaching Recipient: Patient Teaching Methods: Demonstration Response to Teaching: Verbalize Understanding, Return Demonstration OT Short Term Goals Short Term Goals Transfers (B,C,W/C) (FIM): 5 1=Demonstrate adherence to instructed precautions during ADL tasks. 2=Patient will verbalize/demonstrate understanding of assistive devices/ modifications for ADL. 3=Patient will improve strength/tolerance for activity to enable patient to perform ADL's. OT Detention Goals Detention Goals Time Frame: Jun 24, 2017 Eating (FIM): 7 Grooming(FIM): 6 Bathing(FIM): 5 Upper Body Dressing(FIM): 5 Lower Body Dressing(FIM): 5 Toileting(FIM): 6 Transfers (B,C,W/C) (FIM): 5 Toilet/Commode Transfer(FIM): 6 Shower Transfer(FIM): 5 Additional Goals: 1-Demonstrate ADL Tasks, 2-Verbalize Understanding, 3- ImproveStrength/Anu 1=Demonstrate adherence to instructed precautions during ADL tasks. 2=Patient will verbalize/demonstrate understanding of assistive devices/ modifications for ADL. 3=Patient will improve strength/tolerance for activity to enable patient to perform ADL's. OT Education/Plan Problem List/Assessment Assessment: Decreased Activ Tolerance, Dependent Transfers, Impaired I ADL's, Impaired Self-Care Skills Discharge Recommendations Plan/Recommendations: Continue POC Therapy D/C Recommendations: Home w/ Family Support, Occupational Therapy Home Care Comment Equipment needs to be determined after ADL training. Target Placement Home with spouse. Treatment Plan/Plan of Care Treatment,Training & Education: Yes Patient would benefit from OT for education, treatment and training to promote independence in ADL's, mobility, safety and/or upper extremity function for ADL' s. Plan of Care: ADL Retraining, Functional Mobility, UE Funct Exercise/Act Treatment Duration: Jun 24, 2017 Frequency: 5 times per week Estimated Hrs Per Day: .25 hour per day Agreement: Yes Rehab Potential: Good Time/GCodes Start Time: 11:00 Stop Time: 11:20 Total Time Billed (hr/min): 20 Billed Treatment Time 1, CHARLI SANDERS OT Jun 17, 2017 11:41
[2017-06-17 12:00] VITALS: BP 160/77
--- NOTE | 2017-06-17 15:22 | Physical Therapy Daily Note ---
PT Daily Note-Current Subjective Patient reports he does feel good and doesn't want to do anything. Agreed to exercises and CPM. Pain Numeric Pain Scale: 10-Worst Possible Pain Location: Left Location Body Site: Knee Pain Description: Acute Mental Status Patient Orientation: Normal For Age Attachments: IV Transfers Functional [place] Measure 0=Not Assessed/NA 4=Minimal Assistance 1=Total Assistance 5=Supervision or Setup 2=Maximal Assistance 6=Modified [place] 3=Moderate Assistance 7=Complete IndependenceIRFPAI Quality Coding Scale 6 Independent with activity with or without an assistive device 5 Patient requires set up or clean up by helper. Patient completes activity by themselves 4 Supervision or touching assist (CGA). [place] provide cues , steadying assist 3 The helper provides less than half the effort to complete the activity 2 The helper provides more than half the effort to complete the activity 1 Dependent. The helper does all the effort to complete an activity 7 Patient refused to complete or attempt activity 9 The patient did not perform the activity before the current illness or injury 88 Not attempted due to Medical conditions or safety concerns Weight Bearing Left Lower Extremity: Left Weight Bearing/Tolerated Exercises Supine Ex: Ankle pumps, Quad Set, Heel Slides, Straight leg raise Supine Reps: 10 (AAROM SLR, HS) Treatments CPM 0-62 degrees with polar pack in place. Assessment Patient appears to self limit. PT to increase activity as patient will allow. PT Short Term Goals Short Term Goals Time Frame: Jun 23, 2017 Transfers (B,C,W/C) (FIM): 5 Gait (FIM): 2 Gait Distance Comment: 50' Gait Level of Assist: 5 Gait Assistive Device: FWW PT Plan Treatment/Plan Treatment Plan: Continue Plan of Care Treatment Plan: Bed Mobility, Education, Functional Activity Anu, Functional Strength, Gait, Safety, Therapeutic Exercise, Transfers Treatment Duration: Jun 23, 2017 Frequency: 11 times per week Estimated Hrs Per Day: .25 hour per day (15-30') Patient and/or Family Agrees t: Yes Time/GCodes Time In: 1457 Time Out: 1509 Total Billed Treatment Time: 12 Total Billed Treatment 1 visit EX 12 min JUNIOR ROGERS PT Jun 17, 2017 15:22
[2017-06-17 15:53] VITALS: BP 136/63
[2017-06-17 20:19] VITALS: BP 162/72
[2017-06-17] MEDS: LEVOTHYROXINE 100 MCG (LEVOTHROID) TAB PO SCH (20:33)
[2017-06-17] MEDS: LEVOTHYROXINE 50 MCG (LEVOTHROID) TAB PO SCH (20:33)
[2017-06-17] MEDS: GABAPENTIN 300 MG (NEURONTIN) CAP PO SCH (20:33)
[2017-06-18] VITALS: BP 147/67
[2017-06-18 04:00] VITALS: BP 152/69
[2017-06-18] MEDS: PANTOPRAZOLE 20 MG TABLET (PROTONIX) PO SCH (04:24)
[2017-06-18] MEDS: MULTIVIT W/MINERALS TAB (THERAGRAN M) PO SCH (04:24)
[2017-06-18] MEDS: oxyCODONE/APAP 5/325MG (PERCOCET 5) TABLET PO PRN ×5 (04:24→19:01)
[2017-06-18 04:32] LABS: HEMOGLOBIN 10.9 G/DL (13.3-17.7)
[2017-06-18] MEDS ORDERED: morphine INJ 4 MG/ML 1 ML (VIAL/SYRINGE) IVP PRN (07:00)
[2017-06-18] MEDS ORDERED: MILK OF MAGNESIA 400 MG/5 ML 30 ML UDC PO ONE (07:00)
--- NOTE | 2017-06-18 07:03 | Progress Note-Standard ---
Standard Progress Note Progress Notes/Assess & Plan Date Seen by Provider: Jun 18, 2017 Time Seen by Provider: 07:01 Progress/Assessment & Plan post op check No complaints radiographs--HW well positioned. no fractures LLE--sym DP pulse with brisk cap refill. sensation intact throughout. intact DF and PF of toes and ankle s/p LTKA mobilize as able Final Diagnosis having difficulty with his foot/ankle when ambulating Vital Signs Date Time Temp Pulse Resp B/P (MAP) Pulse Ox O2 Delivery O2 Flow Rate FiO2 06/18/17 04:00 98.7 82 14 152/69 (96) 97 NIV CPAP 06/18/17 02:15 98 Nasal Cannula 2.00 06/18/17 00:00 97.2 72 19 147/67 (93) 98 NIV CPAP 06/17/17 22:12 99 Nasal Cannula 2.00 06/17/17 21:00 21 06/17/17 21:00 Nasal Cannula 3.00 06/17/17 20:19 99.0 80 21 162/72 (102) 99 NIV CPAP 06/17/17 19:00 18 06/17/17 15:53 98.0 76 22 136/63 (87) 98 Nasal Cannula 2.00 06/17/17 13:58 93 Nasal Cannula 3.00 06/17/17 12:00 98.0 75 20 160/77 (104) 98 Nasal Cannula 06/17/17 10:32 97 Nasal Cannula 3.00 06/17/17 09:09 Nasal Cannula 3.00 06/17/17 08:00 97.2 75 20 170/101 (124) 96 Nasal Cannula I & O 06/18/17 07:00 Intake Total 3100 ml Output Total 5375 ml Balance -2275 ml Laboratory Tests Test 06/18/17 04:00 Range/Units Hemoglobin 10.9 L 13.3-17.7 G/DL Hematocrit 33 L 40-54 % lle-incision clean and dry. No calf tenderness. Neg Alex's s/p lTKA continue PT/OT has known arthrosis of ankle/foot--ok to TAE AMBROCIO MD Jun 18, 2017 07:03
[2017-06-18] MEDS: RT-ADVAIR HFA 115/21 MCG PER PUFF IH SCH ×2 (07:40→19:37)
[2017-06-18 08:22] VITALS: BP 135/61
[2017-06-18] MEDS: ENOXAPARIN 30 MG/0.3 ML (LOVENOX) SYR SC SCH ×2 (08:31→20:30)
[2017-06-18] MEDS: HYDROCHLOROTHIAZIDE 25 MG (HCTZ) TAB PO SCH (08:32)
[2017-06-18] MEDS: FLUTICASONE NASAL SPRAY (FLONASE) 16 GM BTL NS SCH (08:32)
[2017-06-18] MEDS: amLODIPine 10 MG (NORVASC) TAB PO SCH (08:32)
[2017-06-18] MEDS: QUINAPRIL 20 MG (ACCUPRIL) TAB PO SCH (08:32)
[2017-06-18] MEDS: SENNA W/DOCUSATE (SENOKOT S) TABLET PO SCH ×2 (08:32→20:31)
[2017-06-18] MEDS: ASPIRIN E.C. 81 MG (ECOTRIN) TAB PO SCH (08:32)
--- NOTE | 2017-06-18 09:04 | Physical Therapy Daily Note ---
PT Daily Note-Current Subjective Patient reluctantly agrees to PT. Pain Numeric Pain Scale: 7 Location: Left Location Body Site: Foot Pain Description: Chronic Mental Status Patient Orientation: Normal For Age Transfers Functional [place] Measure 0=Not Assessed/NA 4=Minimal Assistance 1=Total Assistance 5=Supervision or Setup 2=Maximal Assistance 6=Modified [place] 3=Moderate Assistance 7=Complete IndependenceIRFPAI Quality Coding Scale 6 Independent with activity with or without an assistive device 5 Patient requires set up or clean up by helper. Patient completes activity by themselves 4 Supervision or touching assist (CGA). [place] provide cues , steadying assist 3 The helper provides less than half the effort to complete the activity 2 The helper provides more than half the effort to complete the activity 1 Dependent. The helper does all the effort to complete an activity 7 Patient refused to complete or attempt activity 9 The patient did not perform the activity before the current illness or injury 88 Not attempted due to Medical conditions or safety concerns Transfers (B, C, W/C) (FIM): 5 Scootin Rollin Supine to/from Sit: 5 Sit to/from Stand: 5 Bed to/from Chair: 5 Weight Bearing Left Lower Extremity: Left Weight Bearing/Tolerated Gait Training Gait (FIM): 2 Distance (FIM): 8=126-92 ft Distance: 75' Gait Level of Assist: 5 Gait Assistive Device: FWW very slow, antalgic, minimal weight bearing on left LE due to pain Exercises Supine Ex: Ankle pumps, Quad Set, Heel Slides, Straight leg raise Supine Reps: 10 Seated Therapy Exercises: Long arc quads Seated Reps: 15 Assessment Patient requires much encouragement to participate with therapy and to exercise. Patient is progressing slowly and on his terms. PT Short Term Goals Short Term Goals Time Frame: Jun 23, 2017 Transfers (B,C,W/C) (FIM): 5 Gait (FIM): 2 Gait Distance Comment: 50' Gait Level of Assist: 5 Gait Assistive Device: FWW PT Plan Treatment/Plan Treatment Plan: Continue Plan of Care Treatment Plan: Bed Mobility, Education, Functional Activity Anu, Functional Strength, Gait, Safety, Therapeutic Exercise, Transfers Treatment Duration: Jun 23, 2017 Frequency: 11 times per week Estimated Hrs Per Day: .25 hour per day (15-30') Patient and/or Family Agrees t: Yes Time/GCodes Time In: 810 Time Out: 833 Total Billed Treatment Time: 23 Total Billed Treatment 1 visit EX 11 min GT 12 min JUNIOR ROGERS PT Jun 18, 2017 09:04
--- NOTE | 2017-06-18 12:49 | Occ Therapy Progress Note ---
Therapy Progress Note OT attempted treatment this a.m. with pt. Pt. was asked if he would like a shower. Spouse interjects to state that he is trying to sleep. Pt. then states that he took a pain pill, and is trying to go to sleep. States, "maybe I will do it later." OT asks if there is anything else he needs at this time. Pt. closes eyes and spouse states, "no he doesn't need anything but to sleep." Will attempt back this afternoon as time allows. 1, visit Refused treatment 1050 CHARLI RIVERA OT Jun 18, 2017 12:48
--- NOTE | 2017-06-18 13:29 | Occ Therapy Progress Note ---
Therapy Progress Note Attempted OT treatment at 1323. Pt resting in bed with spouse present. Pt declined all ADLs at this time. Spouse states "when he is ready I will help him." Pt states "I'm going home tomorrow" and denies any questions or concerns regarding ADLs or home safety. Pt in bed with needs met. 1, visit MARY SUGGS OT Jun 18, 2017 13:29
--- NOTE | 2017-06-18 14:11 | Physical Therapy Daily Note ---
PT Daily Note-Current Subjective Patient agrees to PT. Pain Numeric Pain Scale: 8 Location: Left Location Body Site: Knee Pain Description: Acute Mental Status Patient Orientation: Normal For Age Transfers Functional [place] Measure 0=Not Assessed/NA 4=Minimal Assistance 1=Total Assistance 5=Supervision or Setup 2=Maximal Assistance 6=Modified [place] 3=Moderate Assistance 7=Complete IndependenceIRFPAI Quality Coding Scale 6 Independent with activity with or without an assistive device 5 Patient requires set up or clean up by helper. Patient completes activity by themselves 4 Supervision or touching assist (CGA). [place] provide cues , steadying assist 3 The helper provides less than half the effort to complete the activity 2 The helper provides more than half the effort to complete the activity 1 Dependent. The helper does all the effort to complete an activity 7 Patient refused to complete or attempt activity 9 The patient did not perform the activity before the current illness or injury 88 Not attempted due to Medical conditions or safety concerns Transfers (B, C, W/C) (FIM): 5 Scootin Rollin Supine to/from Sit: 5 Sit to/from Stand: 5 Weight Bearing Left Lower Extremity: Left Weight Bearing/Tolerated Gait Training Gait (FIM): 5 Distance (FIM): 3=150 ft Distance: 150' Gait Level of Assist: 5 Gait Assistive Device: FWW antalgic, functional Exercises Supine Ex: Ankle pumps, Quad Set, Heel Slides, Straight leg raise Supine Reps: 10 Seated Therapy Exercises: Ankle pumps, Long arc quads Seated Reps: 15 Treatments CPM 0-70 degrees with polar pack in place Assessment Patient progressing slowly with treatment due to patient compliance. Plan dismissal to home with spouse in a.m. after PT/ PT Short Term Goals Short Term Goals Time Frame: Jun 23, 2017 Transfers (B,C,W/C) (FIM): 5 Gait (FIM): 2 Gait Distance Comment: 50' Gait Level of Assist: 5 Gait Assistive Device: FWW PT Plan Treatment/Plan Treatment Plan: Continue Plan of Care Treatment Plan: Bed Mobility, Education, Functional Activity Anu, Functional Strength, Gait, Safety, Therapeutic Exercise, Transfers Treatment Duration: Jun 23, 2017 Frequency: 11 times per week Estimated Hrs Per Day: .25 hour per day (15-30') Patient and/or Family Agrees t: Yes Time/GCodes Time In: 1301 Time Out: 1324 Total Billed Treatment Time: 23 Total Billed Treatment 1 visit EX 10 min GT 13 min JUNIOR ROGERS PT Jun 18, 2017 14:11
[2017-06-18 15:30] VITALS: BP 136/61
[2017-06-18] MEDS: LEVOTHYROXINE 100 MCG (LEVOTHROID) TAB PO SCH (20:31)
[2017-06-18] MEDS: LEVOTHYROXINE 50 MCG (LEVOTHROID) TAB PO SCH (20:31)
[2017-06-18] MEDS: GABAPENTIN 300 MG (NEURONTIN) CAP PO SCH (20:31)
[2017-06-19] VITALS: BP 149/65
[2017-06-19] MEDS: MULTIVIT W/MINERALS TAB (THERAGRAN M) PO SCH (06:15)
[2017-06-19] MEDS: PANTOPRAZOLE 20 MG TABLET (PROTONIX) PO SCH (06:15)
[2017-06-19] MEDS: oxyCODONE/APAP 5/325MG (PERCOCET 5) TABLET PO PRN ×2 (06:15→09:17)
[2017-06-19 06:35] LABS: HEMOGLOBIN 11.1 G/DL (13.3-17.7)
[2017-06-19 08:00] VITALS: BP 133/60
[2017-06-19] MEDS: RT-ADVAIR HFA 115/21 MCG PER PUFF IH SCH (08:12)
--- NOTE | 2017-06-19 08:58 | Physical Therapy Daily Note ---
PT Daily Note-Current Subjective States that he is doing well and ready to go home. Pain Numeric Pain Scale: 8 Transfers Functional [place] Measure 0=Not Assessed/NA 4=Minimal Assistance 1=Total Assistance 5=Supervision or Setup 2=Maximal Assistance 6=Modified [place] 3=Moderate Assistance 7=Complete IndependenceIRFPAI Quality Coding Scale 6 Independent with activity with or without an assistive device 5 Patient requires set up or clean up by helper. Patient completes activity by themselves 4 Supervision or touching assist (CGA). [place] provide cues , steadying assist 3 The helper provides less than half the effort to complete the activity 2 The helper provides more than half the effort to complete the activity 1 Dependent. The helper does all the effort to complete an activity 7 Patient refused to complete or attempt activity 9 The patient did not perform the activity before the current illness or injury 88 Not attempted due to Medical conditions or safety concerns Transfers (B, C, W/C) (FIM): 4 Scootin Rollin Supine to/from Sit: 4 Sit to/from Stand: 4 Weight Bearing Left Lower Extremity: Left Weight Bearing/Tolerated Gait Training Gait (FIM): 2 Distance (FIM): 6=159-30 ft Distance: 100' Gait Level of Assist: 5 Gait Persons Needed: 1 Gait Assistive Device: FWW Exercises Supine Ex: LE Protocol Supine Reps: 20 Assessment Current Status: Excellent Progress The patient should do well at home. PT Short Term Goals Short Term Goals Time Frame: Jun 23, 2017 Transfers (B,C,W/C) (FIM): 5 Gait (FIM): 2 Gait Distance Comment: 50' Gait Level of Assist: 5 Gait Assistive Device: FWW PT Plan Treatment/Plan Treatment Plan: Continue Plan of Care Treatment Plan: Bed Mobility, Education, Functional Activity Anu, Functional Strength, Gait, Safety, Therapeutic Exercise, Transfers Treatment Duration: Jun 23, 2017 Frequency: 11 times per week Estimated Hrs Per Day: .25 hour per day (15-30') Patient and/or Family Agrees t: Yes Time/GCodes Time In: 0830 Time Out: 0855 Total Billed Treatment Time: 25 Total Billed Treatment 1, GT, EX G Codes Necessary: ARNIE Mckeon PT Jun 19, 2017 08:57
[2017-06-19] MEDS: HYDROCHLOROTHIAZIDE 25 MG (HCTZ) TAB PO SCH (09:16)
[2017-06-19] MEDS: ASPIRIN E.C. 81 MG (ECOTRIN) TAB PO SCH (09:16)
[2017-06-19] MEDS: FLUTICASONE NASAL SPRAY (FLONASE) 16 GM BTL NS SCH (09:16)
[2017-06-19] MEDS: QUINAPRIL 20 MG (ACCUPRIL) TAB PO SCH (09:17)
[2017-06-19] MEDS: amLODIPine 10 MG (NORVASC) TAB PO SCH (09:17)
[2017-06-19] MEDS: ENOXAPARIN 30 MG/0.3 ML (LOVENOX) SYR SC SCH (09:17)
[2017-06-19] MEDS: SENNA W/DOCUSATE (SENOKOT S) TABLET PO SCH (09:18)
--- NOTE | 2017-06-19 09:36 | Progress Note-Standard ---
Standard Progress Note Progress Notes/Assess & Plan Date Seen by Provider: Jun 19, 2017 Time Seen by Provider: 09:35 Progress/Assessment & Plan post op check No complaints radiographs--HW well positioned. no fractures LLE--sym DP pulse with brisk cap refill. sensation intact throughout. intact DF and PF of toes and ankle s/p LTKA mobilize as able Final Diagnosis No complaints Vital Signs Date Time Temp Pulse Resp B/P (MAP) Pulse Ox O2 Delivery O2 Flow Rate FiO2 06/19/17 08:12 92 Room Air 06/19/17 00:00 98.4 80 18 149/65 (93) 95 NIV CPAP 06/18/17 20:30 Nasal Cannula 1.50 06/18/17 19:38 92 Room Air 06/18/17 15:30 98.0 81 20 136/61 (86) 94 Room Air I & O 06/19/17 07:00 Intake Total 2480 ml Output Total 4100 ml Balance -1620 ml Laboratory Tests Test 06/19/17 06:00 Range/Units Hemoglobin 11.1 L 13.3-17.7 G/DL Hematocrit 33 L 40-54 % LLE dressing intact. No calf tenderness. Neg Alex's s/p LTKA doing well DC home TAE RUTH MD Jun 19, 2017 09:36
[2017-06-19 11:42] VITALS: BP 133/60
--- NOTE | 2017-06-19 19:02 | DISCHARGE SUMMARY ---
DATE OF SERVICE: DIAGNOSES: 1. Left knee primary osteoarthritis. 2. Sleep apnea. 3. Hypertension. 4. Asthma. 5. Reflux. 6. Osteoarthritis. 7. Peptic ulcer disease. 8. Hiatal hernia. 9. Gastric ulcer. 10. Prediabetes. 11. Fatty liver. 12. Neuropathy. 13. Back pain. 14. 15. Hypothyroidism. PROCEDURE: Left total knee arthroplasty. SUMMARY: The patient is a 66-year-old gentleman, who was admitted the day of left total knee arthroplasty, which he underwent without complications. Postoperatively, he did very well. At time of discharge his wound was clean and dry. Had no calf tenderness. Negative Homans sign. He can perform straight leg raise with assistance. He cleared physical therapy. He was tolerating his diet well and tolerating pain with oral pain medication. CONDITION AT DISCHARGE: Good. DISCHARGE DIET: Regular. FOLLOWUP: Three weeks. Home physical therapy has been arranged. DISCHARGE MEDICATIONS: Home medications, Percocet and aspirin. Job ID: [id number] DocumentID: [id number] Dictated Date: 06/19/2017 09:34:05 [place] Date: 06/19/2017 19:01:04 Dictated By: TAE RUTH MD
== END 2017-06-19 11:05 | disposition home health service (06) | DRG 470 ==
LOC: 4TH 06:02 → SURG 06:03 → 4TH 10:45
PROVIDERS: ADMIT Orthopaedic Surgery; ATTEND Orthopaedic Surgery
PROC: 0SRD0J9 Replacement of Left Knee Joint with Synthetic Substitute, Cemented, Open Approach (ICD-10-PCS; principal; 2017-06-16 07:32)
DX: M17.12 Unilateral primary osteoarthritis, left knee (principal); M19.072 Primary osteoarthritis, left ankle and foot; I10 Essential (primary) hypertension; G47.30 Sleep apnea, unspecified; J45.909 Unspecified asthma, uncomplicated; R73.03 Prediabetes; K76.0 Fatty (change of) liver, not elsewhere classified; G62.9 Polyneuropathy, unspecified; G25.81 Restless legs syndrome; M54.9 Dorsalgia, unspecified; E03.9 Hypothyroidism, unspecified; K21.9 Gastro-esophageal reflux disease without esophagitis; K44.9 Diaphragmatic hernia without obstruction or gangrene; Z87.891 Personal history of nicotine dependence; Z87.11 Personal history of peptic ulcer disease
CPT/HCPCS: 36415; 73560; 85014; 85018; 86850; 86900; 86901; 94640; 94664; 94760

== ENCOUNTER 2017-08-11 14:37 | Outpatient (RCR) | payer MEDICARE | END 2017-08-20 10:45 | disposition home or self-care (01) | PROVIDERS: ATTEND Orthopaedic Surgery | DX: Z47.1 Aftercare following joint replacement surgery (principal); Z96.652 Presence of left artificial knee joint ==

== ENCOUNTER → 2017-08-25 | Outpatient (CLI) | payer MEDICARE | LOC: LAB 13:47 | PROVIDERS: ATTEND Internal Medicine Endocrinology, Diabetes & Metabolism | DX: E06.3 Autoimmune thyroiditis (principal) | CPT/HCPCS: 36415; 84443 ==

== ENCOUNTER → 2017-12-03 | Outpatient (CLI) | payer MEDICARE ==
[~2017-12-03] MED LIST changes: -AMLO10TA2 PO; +AMLO10TA6 PO; -OXYC-197 PO; +OXYC1TAB87 PO
--- NOTE | 2017-12-03 13:00 | Diagnostic Imaging Report ---
EXAM: CHEST PA/LAT (2 VIEW) INDICATION: ASTHMA EXACERBATION WITH COPD COMPARISON: Chest radiograph 01/20/2017. FINDINGS: Normal heart size and central pulmonary vascularity. No focal pulmonary opacity, pleural effusion or pneumothorax. No acute osseous findings. IMPRESSION: No acute cardiopulmonary findings. Dictated by: Dictated on workstation # [id number]
== END ==
LOC: RAD 09:38
PROVIDERS: ATTEND Family Medicine
DX: J44.1 Chronic obstructive pulmonary disease with (acute) exacerbation (principal)
CPT/HCPCS: 71046

== ENCOUNTER → 2018-02-07 | Outpatient (CLI) | payer MEDICARE ==
[2018-02-07 10:22] LABS: ABG BASE EXCESS 2.5 MMOL/L (-2.5-2.5); ABG OXYGEN SATURATION 97 % (94-100); ABG PCO2 39 MMHG (35-45); ABG PH 7.44 (7.37-7.43); ABG PO2 68 MMHG (79-93); ABG TCO2 27.6 MMOL/L (21.0-31.0)
[2018-02-07 10:25] LABS: ALLENS TEST POSITIVE; PATIENT TEMP 97.5; VENTILATOR NO
== END ==
LOC: RT 10:00
PROVIDERS: ATTEND Nurse Practitioner Family
DX: J45.901 Unspecified asthma with (acute) exacerbation (principal); J44.9 Chronic obstructive pulmonary disease, unspecified; R06.02 Shortness of breath; G47.33 Obstructive sleep apnea (adult) (pediatric)
CPT/HCPCS: 36600; 82805

== ENCOUNTER 2018-02-11 10:55 | Emergency (ER) | payer MEDICARE ==
[~2018-02-11] VITALS: Ht 180.3 cm; Wt 149.7 kg
--- OUTSIDE RECORDS SUMMARY | 2018-02-11 11:01 | XMS REPORT ---
Author Author TAE APPIAH Organization [facility] Address [address] [place] [address] Care Team Providers Care Commercial Collector Name Role Phone TAE APPIAH Unavailable PROBLEMS Type Condition ICD9-CM Code WVL47-VH Code Onset Dates Condition Status SNOMED Code Problem Arthritis M19.90 Active 8244848 Problem Allergic state, subsequent encounter T78.40XD Active 939723807 Problem Hypothyroidism (acquired) E03.9 Active 253978083 Problem Mild intermittent asthma with exacerbation J45.21 Active 010690130 Problem COPD with exacerbation J44.1 Active 654186726 Problem Obstructive sleep apnea (adult) (pediatric) G47.33 Active 86913288 Problem Dependence on other enabling machines and devices Z99.89 Active 197863556 Problem Body mass index (BMI) of 45.0-49.9 in adult Z68.42 Active 579580376 Problem Morbid (severe) obesity due to excess calories E66.01 Active 466741417 ALLERGIES Substance Reaction Event Type Date Status Celebrex nausea Drug Allergy Dec, Active ENCOUNTERS Encounter Location Date Diagnosis [facility] [id number] [place] [address] 56202- 1365 Dec, BMI 45.0-49.9, adult Z68.42 ; COPD with exacerbation J44.1 ; Arthritis M19.90 ; Obstructive sleep apnea (adult) (pediatric) G47.33 ; Hypothyroidism (acquired) E03.9 and Polyp of descending colon, unspecified type D12.4 [facility] [id number] [place] [address] 23206- 7972 Dec, Encounter for immunization Z23 [facility] [id number] [place] [address] 16660- 8289 Nov, [facility] [id number] [place] [address] 61760- 6445 Oct, Prediabetes R73.03 [facility] [id number] [place] [address] 82638- 8164 Oct, Essential hypertension I10 and Hypothyroidism (acquired) E03.9 [facility] [id number] [place] [address] 44520- 2662 Oct, [facility] [address] 62123- 7447 Oct, [facility] [id number] [place] [address] 48741- 2484 Oct, Essential hypertension I10 ; Hypothyroidism (acquired) E03.9 ; Arthritis M19.90 ; GERD with esophagitis K21.0 ; Decreased breath sounds at right lung base R09.89 ; COPD with exacerbation J44.1 ; Body mass index (BMI) of 45.0-49.9 in adult Z68.42 ; Morbid (severe) obesity due to excess calories E66.01 ; Dependence on other enabling machines and devices Z99.89 and Obstructive sleep apnea (adult) (pediatric) G47.33 [facility] [id number] [place] [address] 48133 -0586 Sep, Mild intermittent asthma with exacerbation J45.21 [facility] [id number] [place] [address] 16229- 6473 Sep, [facility] [id number] [place] [address] 90915- 1900 Sep, Long-term use of high-risk medication Z79.899 [facility] [id number] [place] [address] 84646- 6093 Sep, Long-term use of high-risk medication Z79.899 [facility] [id number] [place] [address] 98993- 9541 July, [facility] [id number] [place] [address] 34068- 2469 Jun, [facility] [id number] [place] [address] 74988- 1201 May, Asthma J45.909 [facility] [address] 14974- 8162 May, [facility] [address] 11665- 1697 Apr, Pre-op evaluation Z01.818 ; Allergic state, subsequent encounter T78.40XD and BMI 45.0-49.9, adult Z68.42 [facility] [address] 45221- 7270 Mar, [facility] [address] 07036- 0612 Mar, [facility] [address] 40848 -7832 Mar, Cough R05 ; Acute nasopharyngitis J00 and BMI 45.0-49.9, adult Z68.42 [facility] [facility] [address] 49053- 2024 Mar, [facility] [address] 41663- 4262 Jan, Ganglion cyst of finger of right hand M67.441 [facility] [address] 60185- 1884 Dec, [facility] [address] 79597- 5736 Dec, Change in vision H53.9 ; Arthritis M19.90 ; Essential hypertension I10 ; GERD with esophagitis K21.0 ; Hypothyroidism (acquired) E03.9 and Ganglion cyst of joint of finger of left hand M67.442 [facility] [id number] [place] [address] 38552- 4208 15 Nov, 2016 Encounter for immunization Z23 [facility] [address] [place] [address]- 8957 Nov, [facility] [id number] [place] [address] 15527- 4172 Sep, [facility] [id number] [place] [address] 49893- 8193 Aug, [facility] [id number] [place] [address] 53870- 5984 July, Cyst of joint of right hand M25.841 [facility] [id number] [place] [address] 04060- 3577 May, [facility] [address] 63529- 8745 May, Fever, unspecified R50.9 and Influenza A J10.1 [facility] [id number] [place] [address] 46923- 9774 May, Left shoulder pain, unspecified chronicity M25.512 [facility] [id number] [place] [address] 14846- 5892 Apr, [facility] [id number] [place] [address] 82731- 6437 Apr, Infraspinatus tendon tear, left, subsequent encounter S46.812D and Supraspinatus tendon tear, left, subsequent encounter S46.812D [facility] [id number] [place] [address] 05359- 1357 Apr, [facility] [id number] [place] [address] 70077- 3608 Mar, Left shoulder pain, unspecified chronicity M25.512 [facility] [id number] [place] [address] 36525- 7954 Mar, [facility] [id number] [place] [address] 03984- 6149 Mar, Left shoulder pain, unspecified chronicity M25.512 [facility] [id number] [place] [address] 94592- 7579 Feb, Chronic superficial gastritis without bleeding K29.30 ; Left upper quadrant pain R10.12 ; Essential hypertension I10 ; Dyspnea on exertion R06.09 and Palpitations R00.2 [facility] [facility] [address] 89706- 8325 Jan, Colon polyps K63.5 [facility] [facility] [address] 05788- 0232 Jan, Colon polyps K63.5 [facility] [address] 91924- 0401 Dec, [facility] [address] 46189 -1617 Dec, GERD with esophagitis K21.0 [facility] [facility] [address] 78130- 8781 Nov, Arthritis pain M19.90 ; Colon polyps K63.5 ; Seasonal allergic rhinitis due to pollen J30.1 and Encounter for immunization Z23 [facility] [id number] [place] [address] 07514- 3957 Nov, [facility] [id number] [place] [address] 62844- 1621 Oct, [facility] [facility] [address] 85007- 1360 Sep, [facility] [address] 37896- 9927 July, [facility] [address] 56266- 5759 July, [facility] [id number] [place] [address] 22710- 1603 July, Asthma with acute exacerbation J45.901 and Bronchitis J40 [facility] [address] [place] [address]- 2342 Jun, [facility] [address] 85781- 3059 May, Other specified hypothyroidism E03.8 and 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 [facility] [facility] [address] 22270- 0558 Apr, [facility] [facility] [address] 72175- 8692 Apr, Sacroiliac joint pain M53.3 [facility] [address] 05539- 4122 Mar, Other specified hypothyroidism E03.8 ; Restless legs syndrome G25.81 ; Asthma with acute exacerbation J45.901 and Bronchitis J40 [facility] [address] 93414 -1389 Feb, Upper respiratory symptom R09.89 [facility] [facility] [address] 31304- 8464 Feb, Restless leg G25.81 and Asthma J45.909 [facility] [address] 52944- 6710 Dec, Rupture of tendon of right shoulder S46.911A [facility] [id number] [place] [address] 74002- 3868 Dec, Sacroiliac joint pain M53.3 [facility] [id number] [place] [address] 69374- 2449 Nov, [facility] [address] 23537- 0342 Nov, Lumbago of lumbosacaral region with sciatica 724.2 and Sacroiliitis 720.2 [facility] [id number] [place] [address] 97745- 9260 Nov, Influenza vaccine administered V04.81 [facility] [id number] [place] [address] 52209- 5307 22 Nov, 2014 [facility] [facility] [id number] [place] [address] 96155- 0918 Nov, [facility] [id number] [place] [address] 26635- 2359 18 Nov, 2014 Thyroid function test abnormal 794.5 and Thyroid antibody positive 795.79 [facility] [id number] [place] [address] 66593- 1693 16 Nov, 2014 Hypothyroidism 244.9 ; Thyroid antibody positive 795.79 and Right shoulder pain 719.41 [facility] [id number] [place] [address] 38546- 2389 Oct, [facility] [id number] [place] [address] 52648- 9004 Oct, Thyroid function test abnormal 794.5 [facility] [id number] [place] [address] 81757- 2008 14 Oct, 2014 Hypertension 401.9 and Bilateral leg pain 729.5 [facility] [id number] [place] [address] 72870- 1694 Oct, [facility] [id number] [place] [address] 16999- 3148 Oct, Bilateral leg pain 729.5 and Hypertension 401.9 [facility] [id number] [place] [address] 98637- 5185 Sep, Bilateral leg pain 729.5 ; Hypertension 401.9 and Edema 782.3 [facility] [id number] [place] [address] 37034- 3978 Aug, Unspecified hereditary and idiopathic peripheral neuropathy 356.9 and Arthritis 716.90 [facility] [id number] [place] [address] 20350- 4085 Aug, [place] [id number] [place] [address]- 3754 July, [facility] [address] [id number] [place] [address]- 8365 30 Jun, 2014 [facility] [place] [facility] [address] [id number] [place] [address]- 9725 Jun, [facility] [place] [facility] [address] [id number] [place] [address]- 6127 Jun, [facility] [place] [facility] [address] [id number] [place] [address]- 4203 May, [facility] [place] [facility] [address] [id number] [place] [address]- 7256 May, [facility] [place] [facility] [address] [id number] [place] [address]- 2270 May, [facility] [place] [facility] [address] [id number] [place] [address]- 4472 May, [facility] [address] [id number] [place] [address]- 3097 May, [facility] [place] [facility] [address] [id number] [place] [address]- 4019 16 May, 2014 [facility] [place] [facility] [address] [id number] [place] [address]- 6265 May, [facility] [place] [facility] [address] [id number] [place] [address]- 3829 May, [facility] [place] [facility] [address] [id number] [place] [address]- 5377 May, [facility] [place] [facility] [address] [id number] [place] [address]- 9470 May, [facility] [place] [facility] [address] [id number] [place] [address]- 7246 May, [facility] [place] [facility] [address] [id number] [place] 2205 Apr, [facility] [place] [facility] [address] [id number] [place] [address]- 3790 Apr, 2014 [facility] [place] [facility] [address] [id number] [place] [address]- 7215 Apr, 2014 [facility] [place] [facility] [address] [id number] [place] [address]- 1358 Apr, 2014 [facility] [place] [facility] [address] [id number] [place] [address]- 2648 Apr, 2014 [facility] [place] [facility] [address] [id number] [place] [address]- 7581 Apr, 2014 [facility] [place] [facility] [address] [id number] [place] [address]- 8231 Apr, [facility] [place] [facility] [address] [id number] [place] [address]- 8669 Apr, [facility] [place] [facility] [address] [id number] [place] [address]- 3074 Mar, [facility] [place] [facility] [address] [id number] [place] [address]- 4315 Mar, [facility] [place] [facility] [address] [id number] [place] [address]- 4097 Mar, [facility] [place] [facility] [address] [id number] [place] [address]- 0412 Mar, [facility] [place] [facility] [address] [id number] [place] [address]- 8436 Mar, [facility] [place] [facility] [address] [id number] [place] [address]- 9401 Mar, [facility] [place] [facility] [address] [id number] [place] [address]- 3268 Feb, [facility] [place] [facility] [address] [id number] [place] [address]- 6621 Feb, [facility] [place] [facility] [address] [id number] [place] [address]- 3976 29 Feb, 2014 [facility] [address] [id number] [place] [address]- 5686 Feb, [facility] [place] [facility] [address] [id number] [place] [address]- 7336 Feb, [facility] [address] [id number] [place] [address]- 4793 Feb, [facility] [place] [facility] [address] [id number] [place] [address]- 1765 Feb, [facility] [address] [id number] [place] [address]- 9348 Feb, [facility] [place] [facility] [address] [id number] [place] [address]- 1633 Feb, [facility] [place] [facility] [address] [id number] [place] [address]- 9712 Feb, [facility] [address] [id number] [place] [address]- 1084 18 Feb, 2014 [facility] [place] [facility] [address] [id number] [place] [address]- 8811 Feb, [facility] [address] [id number] [place] [address]- 4550 18 Feb, 2014 [facility] [place] [facility] [address] [id number] [place] [address]- 7236 15 Feb, 2014 [facility] [place] [facility] [address] [id number] [place] [address]- 9167 15 Feb, 2014 [facility] [place] [facility] [address] [id number] [place] [address]- 4468 10 Feb, 2014 [facility] [place] [facility] [address] [id number] [place] [address]- 7894 10 Feb, 2014 [facility] [place] [facility] [address] [id number] [place] [address]- 7587 Feb, [facility] [place] [facility] [address] [id number] [place] [address]- 1047 Feb, [facility] [place] [facility] [address] [id number] [place] [address]- 9335 Feb, [facility] [place] [facility] [address] [id number] [place] 6144 Feb, [facility] [place] [facility] [address] [id number] [place] [address]- 3471 Feb, [facility] [place] [facility] [address] [id number] [place] [address]- 0763 Feb, [facility] [place] [facility] [address] [id number] [place] [address]- 4505 Jan, [facility] [place] [facility] [address] [id number] [place] [address]- 0498 Jan, [facility] [place] [facility] [address] [id number] [place] [address]- 6057 Jan, [facility] [place] [facility] [address] [id number] [place] [address]- 2328 Jan, [facility] [place] [facility] [address] [id number], [place] [address]- 5763 Jan, [facility] [place] [facility] [address] [id number][place] [address]- 0382 Jan, [facility] [place] [facility] [address] [id number], [place] [address]- 5452 Jan, [facility] [place] [facility] [address] [id number][place] [address]- 9910 Jan, [facility] [place] [facility] [address] [id number][place] [address]- 6262 Jan, [facility] [place] [facility] [address] [id number] [address]- 0394 Dec, [facility] [place] [facility] [address] [id number][place] [address]- 4726 Dec, [facility] [place] [facility] [address] [id number] [place] [address]- 0981 Dec, 2013 [facility] [place] [facility] [address] [id number] [place] [address]- 6147 Dec, [facility] [place] [facility] [address] [id number] [place] [address]- 2394 Dec, 2013 [facility] [place] [facility] [address] [id number] [place] [address]- 6341 Dec, [facility] [place] [facility] [address] [id number] [place] [address]- 8196 Dec, [facility] [place] [facility] [address] [id number] [place] [address]- 2416 Dec, [facility] [place] [facility] [address] [id number], [place] [address]- 3758 Dec, [facility] [place] [facility] [address] [id number] [place] [address]- 1442 Dec, [facility] [place] [facility] [address] [id number] [place] [address]- 1698 30 Nov, 2013 [facility] [place] [facility] [address] [id number] [place] [address]- 5866 30 Nov, 2013 [facility] [place] [facility] [address] [id number], [place] [address]- 7986 12 Nov, 2013 [facility] [place] [facility] [address] [id number] [address]- 1826 12 Nov, 2013 [facility] [place] [facility] [address] [id number] [place] [address]- 4123 12 Nov, 2013 [facility] [place] [facility] [address] [facility] [id number] [address]- 3539 12 Nov, 2013 [facility] [place] [facility] [address] [facility] [id number] [place] [address]- 3922 11 Nov, 2013 [facility] [place] [facility] [address] [id number] [place] [address]- 0163 Nov, [facility] [place] [facility] [address] [id number] [place] [address]- 9669 Nov, [facility] [place] [facility] [address] [id number] [place] [address]- 7836 Nov, [facility] [place] [facility] [address] [id number] [place] [address]- 2550 Oct, [facility] [place] [facility] [address] [id number] [place] [address]- 9844 Oct, [facility] [place] [facility] [address] [id number] [place] [address]- 5122 Oct, [facility] [place] [facility] [address] [id number] [place] [address]- 7084 Oct, [facility] [place] [facility] [address] [id number] [place] [address]- 0580 Oct, [facility] [place] [facility] [address] [id number] [place] [address]- 6958 Oct, [facility] [place] [facility] [address] [id number] [place] [address]- 7614 Oct, [facility] [place] [facility] [address] [id number] [place] [address]- 4599 Oct, [facility] [place] [facility] [address] [id number] [place] [address]- 3008 Oct, [facility] [place] [facility] [address] [id number] [place] [address]- 1144 Oct, [facility] [place] [facility] [address] [id number] [place] [address]- 7062 Sep, [facility] [place] [facility] [address] [id number] [place] [address]- 8230 Sep, [facility] [place] [facility] [address] [id number] [place] [address]- 4077 Aug, [facility] [place] [facility] [address] [id number] [place] [address]- 0978 Aug, [facility] [place] [facility] [address] [id number] [place] [address]- 3532 Aug, [facility] [place] [facility] [address] [id number] [place] [address]- 6198 Aug, [facility] [place] [facility] [address] [id number] [place] [address]- 5475 Aug, [facility] [place] [facility] [address] [id number] [place] [address]- 1013 Aug, [facility] [place] [facility] [address] [id number] [place] [address]- 3194 Aug, [facility] [place] [facility] [address] [id number] [place] [address]- 3768 Aug, [facility] [place] [facility] [address] [id number] [place] [address]- 4598 Aug, [facility] [place] [facility] [address] [id number] [place] [address]- 2827 Aug, [facility] [place] [facility] [address] [id number] [place] [address] Aug, [facility] [place] [facility] [address] [id number] [place] [address] Aug, [facility] [place] [facility] [address] [id number] [address] July, [facility] [place] [facility] [address] [id number] [place] [address] July, [facility] [place] [facility] [address] [id number] [place] [address] July, [facility] [place] [facility] [address] [id number] [place] [address] July, [facility] [place] [facility] [address] [id number] [place] [address] July, [facility] [place] [facility] [address] [id number] [place] [address] July, [facility] [place] [facility] [address] [id number] [place] [address] July, [facility] [place] [facility] [address] [id number] [place] [address] July, [facility] [place] [facility] [address] [id number] [place] [address] Jun, [facility] [place] [facility] [address] [id number] [place] [address] Jun, [facility] [place] [facility] [address] [id number] [place] [address] May, [facility] [place] [facility] [address] [id number] [place] [address] May, [facility] [place] [facility] [address] [id number] [place] [address] May, [facility] [place] [facility] [address] [id number] [place] [address] May, [facility] [place] [facility] [address] [id number] [place] [address] May, [facility] [place] [facility] [address] [id number] [place] [address] May, [facility] [place] [facility] [address] [id number] [place] [address] May, [facility] [place] [facility] [address] [id number] [place] [address] May, [facility] [place] [facility] [address] [id number] [place] [address] Apr, [facility] [place] [facility] [address] [id number] [place] [address] Apr, [facility] [place] [facility] [address] [id number] [place] [address] Apr, [facility] [place] [facility] [address] [id number] [place] [address] Apr, [facility] [place] [facility] [address] [id number] [place] [address] Apr, [facility] [place] [facility] [address] [id number] [place] [address] Apr, [facility] [place] [facility] [address] [id number] [place] [address] Apr, [facility] [place] [facility] [address] [id number] [place] [address] Apr, [facility] [place] [facility] [address] [id number] [place] [address] Mar, [facility] [place] [facility] [address] [id number] [place] [address] Mar, [facility] [place] [facility] [address] [id number] [place] [address] Mar, [facility] [place] [facility] [address] [id number] [place] [address] Mar, [facility] [place] [facility] [address] [id number], [place] [address] Mar, [facility] [place] [facility] [address] [id number] [address] Mar, [facility] [place] [facility] [address] [id number] [place] [address] Mar, [facility] [place] [facility] [address] [id number] [address] Mar, [facility] [place] [facility] [address] [id number] [place] [address] Mar, [facility] [place] [facility] [address] [id number] [place] [address] Mar, [facility] [place] [facility] [address] [id number] [place] [address] Feb, [facility] [place] [facility] [address] [id number] [place] [address] Feb, [facility] [place] [facility] [address] [id number] [place] [address] Feb, [facility] [place] [facility] [address] [id number] [place] [address] Feb, [facility] [place] [facility] [address] [id number] [place] [address] Jan, [facility] [place] [facility] [address] [id number] [place] [address] Jan, [facility] [place] [facility] [address] [id number] [place] [address] 30 Dec, 2012 [facility] [place] [facility] [address] [id number] [place] [address] 30 Dec, 2012 [facility] [place] [facility] [address] [id number] [place] [address] 28 Dec, 2012 [facility] [place] [facility] [address] [facility] [id number] [place] [address]- [address] 28 Dec, 2012 [facility] [place] [facility] [address] [id number] [place] [address] 18 Dec, 2012 [facility] [place] [facility] [address] [address] [id number] [address] 18 Dec, 2012 [facility] [place] [facility] [address] [id number] [place] [address] 14 Dec, 2012 [facility] [place] [facility] [address] [id number] [place] [address] 14 Dec, 2012 [facility] [place] [facility] [address] [id number] [address] Dec, [facility] [place] [facility] [address] [id number] [place] [address] Dec, [facility] [place] [facility] [address] [id number] [place] [address] Dec, [facility] [place] [facility] [address] [id number] [place] [address] Dec, [facility] [place] [facility] [address] [id number] [place] [address] Dec, [facility] [address] [id number] [place] [address] Nov, [facility] [place] [facility] [address] [id number] [place] [address] Nov, [facility] [place] [facility] [address] [id number] [place] [address] Nov, [facility] [place] [facility] [address] [id number] [place] [address] Nov, [facility] [place] [facility] [address] [id number] [place] [address] Nov, [facility] [place] [facility] [address] [id number] [place] [address] Oct, [facility] [place] [facility] [address] [id number] [place] [address]160 Oct, [facility] [place] [facility] [address] [id number] [place] [address] Oct, [facility] [place] [facility] [address] [id number] [place] [address]- 0795 Oct, [facility] [place] [facility] [address] [id number] [place] [address] Oct, [facility] [place] [facility] [address] [id number] [place] [address]- 8726 Oct, [facility] [place] [facility] [address] [id number] [place] [address]- 2546 Oct, [facility] [address] [id number] [place] [address]143 Sep, [facility] [place] [facility] [address] [id number] [place] [address]- 6185 Sep, [facility] [place] [facility] [address] [id number] [place] [address] Sep, [facility] [place] [facility] [address] [id number] [place] [address] 2454 Aug, [facility] [place] [facility] [address] [id number] [place] [address]- [address]183 Aug, [facility] [place] [facility] [address] [id number] [place] [address]- 4264 Aug, [facility] [place] [facility] [address] [id number] [place] [address] 5063 Aug, [facility] [place] [facility] [address] [id number] [place] [address] 1776 July, [facility] [place] [facility] [address] [id number] [place] [address] July, [facility] [place] [facility] [address] [id number] [place] [address] July, [facility] [place] [facility] [address] [id number] [place] [address]- 9768 July, [facility] [place] [facility] [address] [id number] [place] [address] 1297 Jun, [facility] [place] [facility] [address] [id number] [place] [address] 9030 Jun, [facility] [place] [facility] [address] [id number] [place] [address] 3827 May, [facility] [place] [facility] [address] [id number] [place] [address] 8219 May, [facility] [place] [facility] [address] [id number] [place] [address]- 6391 Apr, [facility] [address] [id number] [place] [address] 3426 Apr, [facility] [place] [facility] [address] [id number] [place] [address] Feb, [facility] [place] [facility] [address] [id number] [place] [address] 2606 Feb, [facility] [place] [facility] [address] [id number] [place] [address] Feb, [facility] [place] [facility] [address] [id number] [place] [address] 7217 Feb, [facility] [place] [facility] [address] [id number] [place] [address] Feb, [facility] [place] [facility] [address] [id number] [place] [address]396 Feb, [facility] [address] [id number] [place] [address] 8335 Jan, [facility] [place] [facility] [address] [id number] [place] [address]- 4626 Jan, [facility] [address] [id number] [place] [address]277 Jan, [facility] [place] [facility] [address] [id number] [place] [address]- 4645 Jan, [facility] [place] [facility] [address] [id number] [place] [address] 0897 Jan, [facility] [place] [facility] [address] [id number] [place] [address]- 4286 Jan, [facility] [place] [facility] [address] [id number] [place] [address]- 0735 Jan, [facility] [place] [facility] [address] [id number] [place] [address]- 4473 Jan, [facility] [place] [facility] [address] [id number] [place] [address] 2157 Jan, [facility] [place] [facility] [address] [id number] [place] [address] 7509 Jan, [facility] [place] [facility] [address] [id number] [place] [address]- 7276 Jan, [facility] [place] [facility] [address] [id number] [place] [address]- 8869 Jan, [facility] [place] [facility] [address] [id number] [place] [address]- 2274 Jan, [facility] [place] [facility] [address] [id number] [place] [address] 0495 Dec, [facility] [place] [facility] [address] [id number] [place] [address]- 6462 Dec, [facility] [place] [facility] [address] [id number], [place] [address] Dec, [facility] [place] [facility] [address] [id number] [place] [address] 2787 Dec, [facility] [place] [facility] [address] [facility] [id number], [place] [address] 9678 Dec, [facility] [place] [facility] [address] [id number], [place] [address] 5598 Dec, [facility] [place] [facility] [address] [id number], [place] [address] 0392 Dec, [facility] [place] [facility] [address] [id number], [place] [address]- 6787 Nov, [facility] [place] [facility] [address] [id number], [place] [address] Nov, [facility] [place] [facility] [address] [facility] [id number], [place] [address]- 6188 Oct, [facility] [place] [facility] [address] [id number] [place] [address]- 7920 Oct, [facility] [address] [id number] [place] [address]- 2814 Sep, [facility] [place] [facility] [address] [id number] [place] [address]- 2846 Sep, [facility] [place] [facility] [address] [id number] [place] [address]- 2135 Sep, [facility] [place] [facility] [address] [id number] [place] [address]- 2558 Sep, [facility] [place] [facility] [address] [id number] [place] [address]- 9061 July, [facility] [place] [facility] [address] [id number] [place] [address]- 7186 July, [facility] [address] [id number] [place] [address]- 8983 July, [facility] [place] [facility] [address] [id number] [place] [address]- 5285 Jun, [facility] [place] [facility] [address] [id number] [place] [address]- 2803 Jun, [facility] [place] [facility] [address] [id number] [place] [address]- 2896 Jun, [facility] [place] [facility] [address] [id number] [place] [address]- 5414 16 Jun, 2011 [facility] [place] [facility] [address] [id number] [place] [address]- 8011 13 Jun, 2011 [facility] [place] [facility] [address] [id number] [place] [address]- 4163 10 Jun, 2011 [facility] [place] [facility] [address] [id number] [place] [address]- 6510 06 Jun, 2011 [facility] [place] [facility] [address] [id number] [place] [address]- 7419 05 Jun, 2011 [facility] [place] [facility] [address] [id number] [place] [address]- 8105 Jun, [facility] [place] [facility] [address] [id number] [place] [address]- 7490 May, [facility] [place] [facility] [address] [id number] [place] [address]- 7006 May, [facility] [place] [facility] [address] [id number] [place] [address]- 5016 May, [facility] [place] [facility] [address] [id number] [place] [address] 2541 May, [facility] [place] [facility] [address] [id number] [place] [address]- 3896 May, [facility] [place] [facility] [address] [id number] [place] [address]- 9476 Apr, [facility] [place] [facility] [address] [id number] [place] [address]- 5399 Mar, [facility] [place] [facility] [address] [id number] [place] [address]- 9982 Mar, [facility] [place] [facility] [address] [id number] [place] [address]- 9531 Feb, [facility] [place] [facility] [address] [id number] [place] [address]- 1510 Feb, [facility] [place] [facility] [address] [id number] [place] [address]- 0362 Feb, [facility] [place] [facility] [address] [id number] [place] [address]- 3293 Jan, [facility] [place] [facility] [address] [id number] [place] [address]- 8416 Dec, [facility] [place] [facility] [address] [id number] [place] [address]- 7404 Dec, [facility] [place] [facility] [address] [id number] [address]- 9496 11 Dec, 2010 [facility] [address] [id number] [place] [address]- 4991 16 Jul, 2010 [facility] [address] [id number] [place] [address]- 9039 18 May, 2010 [facility] [address] [id number] [place] [address] 22 Feb, 2010 [facility] [place] [facility] [address] [id number] [place] [address]- 8560 15 Feb, 2010 [facility] [address] [id number] [place] [address]- 8866 09 Feb, 2010 [facility] [address] [id number] [place] [address] Jan, [facility] [address] [id number] [place] [address]- 9157 26 Dec, 2009 [facility] [place] [facility] [address] [id number] [place] [address]- 3695 13 Dec, 2009 [facility] [address] [id number] [place] [address]- 8371 Oct, [facility] [place] [facility] [address] [id number] [place] [address]- 1600 13 Jul, 2009 [facility] [address] [id number] [place] [address]- 8340 18 Apr, 2009 [facility] [place] [facility] [address] [id number] [address] 5089 Mar, [facility] [place] [facility] [address] [id number] [place] [address]- 3069 Feb, [facility] [place] [facility] [address] [id number] [place] [address]- 4882 Feb, [facility] [place] [facility] [address] [id number] [place] [address]- 6061 Feb, [facility] [place] [facility] [address] [id number] [address] Feb, [facility] [address] [id number], [place] [address]- 1565 Feb, [facility] [id number] Jan, [facility] [id number] [address] Jan, [facility] [id number], [place] [address]- 3259 Dec, [place] [id number] [place] [address] 7860 Nov, IMMUNIZATIONS No Known Immunizations SOCIAL HISTORY Never Assessed REASON FOR VISIT New provider visit-NARCISO ryan, pt want to discuss the medicine he is on, he sleeps a lot PLAN OF CARE Activity Details Follow Up 6 Months. 3 months or as indicated by lab Reason: VITAL SIGNS Height 70 in 2017-12-31 Weight 341.5 lbs 2017-12-31 Temperature 98.1 degrees Fahrenheit 2017-12-31 Heart Rate 78 bpm 2017-12-31 Respiratory Rate 18 2017-12-31 Oximetry on room air:94 % 2017-12-31 BMI 48.99 kg/m2 2017-12-31 Blood pressure systolic 130 mmHg 2017-12-31 Blood pressure diastolic 90 mmHg 2017-12-31 MEDICATIONS Medication Instructions Dosage Frequency Start Date End Date Duration Status Probiotic - Active Levothyroxine Sodium 200 MCG TAKE ONE TABLET BY MOUTH DAILY Active Vitamin D3 1,000 unit 2 capsule by Oral route 1 time per day Dec, Active Fluticasone Propionate 50 MCG/ACT Nasally daily prn 1 spray in each nostril Active Ventolin HFA 90 mcg/actuation 2 puffs by Inhalation route 4 times per day PRN keep on file don't fill today Feb, Active Duloxetine HCl 60 mg Orally Once a day 1 capsule 24h Nov, 30 day(s) Active C-PAP Machine Active Albuterol Sulfate (2.5 MG/3ML) 0.083% Inhalation Three times a day 3 ml as needed 8h Active Quinapril HCl 20 MG TAKE THREE TABLETS BY MOUTH ONCE DAILY Active Norvasc 10 mg TAKE ONE TABLET BY MOUTH DAILY Active Meloxicam 15 MG TAKE ONE TABLET BY MOUTH ONCE DAILY. 90 Active Fish Oil 1000 MG Orally Twice a day 1 capsule 12h Active Aspirin 81 mg 1 tablet by Oral route 1 time per day Feb, Active Omeprazole 20 MG TAKE ONE CAPSULE BY MOUTH TWICE DAILY. 30 Active Hydrochlorothiazide 50 MG TAKE ONE TABLET BY MOUTH DAILY 30 Active Gabapentin 300 MG Orally 1 at HS TAKE ONE CAPSULE BY MOUTH DAILY AT NIGHT 30 Active RESULTS No Results PROCEDURES Procedure Date Ordered Result Body Site [facility] VISIT ESTABLISHED PATIENT Dec 31, 2017 INSTRUCTIONS MEDICATIONS ADMINISTERED No Known Medications MEDICAL (GENERAL) HISTORY Type Description Date Medical History cardiovascular disease- has had sleep study in the past- using CPap at night and tolerating Medical History hypertension Medical History asthma Medical [...] Colonoscopy with Polyp Needs every 2 years Medical History right shoulder tendon rupture Medical History Infraspinatous/supraspinatous tear of left shoulder Surgical History orthopedic Surgery Surgical History cholecystectomy Surgical History EGD and Colonoscopy 2015 Surgical History Heart Cath 04/2016 Surgical History Rotator cuff 05/2016 Surgical History Right knee replacment 01/27/2017 Surgical History left knee replacement 2018 Hospitalization History [facility]- Right knee surgery. discharged 01/27/17 Hospitalization History [facility]- Left knee replacement 06/16/2017
--- OUTSIDE RECORDS SUMMARY | 2018-02-11 11:01 | XMS REPORT ---
Author Author Giselle HERBER Organization [facility] Address [address] [place] [address] Care Team Providers Care Credit Control Clerk Name Role Phone GiselleFRANCOISHERBER Unavailable PROBLEMS Type Condition ICD9-CM Code QDB91-NQ Code Onset Dates Condition Status SNOMED Code Problem Arthritis M19.90 Active 1929972 Problem Allergic state, subsequent encounter T78.40XD Active 291018923 Problem Hypothyroidism (acquired) E03.9 Active 373561107 Problem Mild intermittent asthma with exacerbation J45.21 Active 529186502 Problem COPD with exacerbation J44.1 Active 873809327 Problem Obstructive sleep apnea (adult) (pediatric) G47.33 Active 02041964 Problem Dependence on other enabling machines and devices Z99.89 Active 135168524 Problem Body mass index (BMI) of 45.0-49.9 in adult Z68.42 Active 433036784 Problem Morbid (severe) obesity due to excess calories E66.01 Active 704570274 ALLERGIES No Information ENCOUNTERS Encounter Location Date Diagnosis [place] [id number] [place] [address] 09561- 0468 Dec, [place] [id number] [place] [address] 26108- 6119 Dec, Encounter for immunization Z23 [facility] [id number] [place] [address] 33141- 6842 Nov, [place] [address] 94622- 3223 Oct, Prediabetes R73.03 [place] [id number] [place] [address] 81753- 4582 Oct, Essential hypertension I10 and Hypothyroidism (acquired) E03.9 [place] [id number] [place] [address] 57138- 3128 Oct, [facility] [id number] [place] [address] 76785- 9910 Oct, [facility] [id number] [place] [address] 67319- 6328 Oct, Essential hypertension I10 ; Hypothyroidism (acquired) [...] and Obstructive sleep apnea (adult) (pediatric) G47.33 [facility] [id number] [place] [address] 68744 -4749 Sep, Mild intermittent asthma with exacerbation J45.21 [place] [id number] [place] [address] 94255- 9499 Sep, [place] [id number] [place] [address] 29370- 5890 Sep, Long-term use of high-risk medication Z79.899 [place] [id number] [place] [address] 10302- 4816 Sep, Long-term use of high-risk medication Z79.899 [place] [id number] [place] [address] 43013- 6798 July, [facility] [id number] [place] [address] 68909- 2847 Jun, [place] [id number] [place] [address] 19413- 8526 May, Asthma J45.909 [place] [id number] [place] [address] 85959- 3654 May, [place] [id number] [place] [address] 02839- 2020 Apr, Pre-op evaluation Z01.818 ; Allergic state, subsequent encounter T78.40XD and BMI 45.0-49.9, adult Z68.42 [place] [address] 66235- 2800 Mar, [place] [address] 47363- 2603 Mar, [facility] [address] 40497 -0410 Mar, Cough R05 ; Acute nasopharyngitis J00 and BMI 45.0-49.9, adult Z68.42 [place] [address] 75101- 8652 Mar, [place] [address] 34190- 1060 Jan, Ganglion cyst of finger of right hand M67.441 [place] [address] 50116- 4770 Dec, [place] [address] 29200- 4078 Dec, Change in vision H53.9 ; Arthritis M19.90 ; Essential hypertension I10 ; GERD with esophagitis K21.0 ; Hypothyroidism (acquired) E03.9 and Ganglion cyst of joint of finger of left hand M67.442 [place] [id number] [place] [address] 02479- 2706 15 Nov, 2016 Encounter for immunization Z23 [place] [address] 23746- 6449 07 Nov, 2016 [place] [address] 68826- 6063 Sep, [place] [address] 69393- 0201 Aug, [place] [id number] [place] [address] 01785- 0618 July, Cyst of joint of right hand M25.841 [place] [id number] [place] [address] 63834- 0403 May, [place] [address] 53786- 3630 May, Fever, unspecified R50.9 and Influenza A J10.1 [place] [id number] [place] [address] 83225- 2966 May, Left shoulder pain, unspecified chronicity M25.512 [place] [id number] [place] [address] 03656- 1814 Apr, [place] [id number] [place] [address] 67276- 7804 14 Apr, 2016 Infraspinatus tendon tear, left, subsequent encounter S46.812D and Supraspinatus tendon tear, left, subsequent encounter S46.812D [place] [id number] [place] [address] 79856- 9846 Apr, [place] [id number] [place] [address] 60787- 7105 Mar, Left shoulder pain, unspecified chronicity M25.512 [place] [id number] [place] [address] 47507- 6471 Mar, [place] [id number] [place] [address] 74108- 0359 Mar, Left shoulder pain, unspecified chronicity M25.512 [place] [id number] [place] [address] 44349- 2387 Feb, Chronic superficial gastritis without bleeding K29.30 ; Left upper quadrant pain R10.12 ; Essential hypertension I10 ; Dyspnea on exertion R06.09 and Palpitations R00.2 [place] [id number] [place] [address] 66870- 8035 Jan, Colon polyps K63.5 [facility] [address] 90895- 6402 Jan, Colon polyps K63.5 [facility] [id number] [place] [address] 50924- 3053 Dec, [facility] [id number] [place] [address] 26982 -1749 Dec, GERD with esophagitis K21.0 [place] [address] 72813- 8866 Nov, Arthritis pain M19.90 ; Colon polyps K63.5 ; Seasonal allergic rhinitis due to pollen J30.1 and Encounter for immunization Z23 [place] [address] 95897- 2589 Nov, [facility] [id number] [place] [address] 20547- 7028 Oct, [place] [address] 75996- 6091 Sep, [facility] [id number] [place] [address] 63777- 2644 July, [place] [id number] [place] [address] 77648- 5775 July, [facility] [id number] [place] [address] 48375- 3198 July, Asthma with acute exacerbation J45.901 and Bronchitis J40 [place] [address] 60644- 3803 Jun, [place] [id number] [place] [address] 40674- 1112 May, Other specified hypothyroidism E03.8 and 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 [place] [id number] [place] [address] 22382- 0383 Apr, [facility] [address] 95311- 3468 Apr, Sacroiliac joint pain M53.3 [facility] [address] 47437- 6616 Mar, Other specified hypothyroidism E03.8 ; Restless legs syndrome G25.81 ; Asthma with acute exacerbation J45.901 and Bronchitis J40 [facility] [address] 78138 -5652 Feb, Upper respiratory symptom R09.89 [place] [address] 23228- 9638 Feb, Restless leg G25.81 and Asthma J45.909 [place] [address] 38959- 4794 Dec, Rupture of tendon of right shoulder S46.911A [place] [address] 70730- 8948 Dec, Sacroiliac joint pain M53.3 [facility] [id number] [place] [address] 24643- 6107 Nov, [place] [address] 56966- 4904 Nov, Lumbago of lumbosacaral region with sciatica 724.2 and Sacroiliitis 720.2 [place] [id number] [place] [address] 69059- 7935 Nov, Influenza vaccine administered V04.81 [facility] [id number] [place] [address] 86131- 3010 Nov, [place] [id number] [place] [address] 61844- 0407 Nov, [place] [id number] [place] [address] 37853- 0270 18 Nov, 2014 Thyroid function test abnormal 794.5 and Thyroid antibody positive 795.79 [facility] [id number] [place] [address] 83186- 9013 16 Nov, 2014 Hypothyroidism 244.9 ; Thyroid antibody positive 795.79 and Right shoulder pain 719.41 [facility] [address] 33803- 1287 Oct, [facility] [address] 36473- 6249 Oct, Thyroid function test abnormal 794.5 [place] [address] 06873- 8148 Oct, Hypertension 401.9 and Bilateral leg pain 729.5 [place] [address] 89637- 6415 Oct, [facility] [address] 21161- 2150 Oct, Bilateral leg pain 729.5 and Hypertension 401.9 [place] [address] 42588- 2156 Sep, Bilateral leg pain 729.5 ; Hypertension 401.9 and Edema 782.3 [place] [id number] [place] [address] 40429- 6003 Aug, Unspecified hereditary and idiopathic peripheral neuropathy 356.9 and Arthritis 716.90 [facility] [id number] [place] [address] 52936- 1789 Aug, [place] [address] 69440- 0435 July, [facility] [id number] [place] [address] 82279- 0580 Jun, [facility] [address] 56245- 5954 14 Jun, 2014 [facility] [place] [facility] [address] [id number] [place] [address]- 8697 13 Jun, 2014 [facility] [place] [facility] [address] [id number] [place] [address]- 2054 25 May, 2014 [facility] [place] [facility] [address] [id number] [place] [address]- 8430 May, [facility] [place] [facility] [address] [id number] [place] [address]- 9475 May, [facility] [place] [facility] [address] [id number] [place] [address]- 6672 May, [facility] [place] [facility] [address] [id number] [place] [address]- 8722 May, [facility] [place] [facility] [address] [facility] [id number] [place] [address]- 5129 May, [facility] [place] [facility] [address] [id number] [place] [address]- 4303 May, [facility] [place] [facility] [address] [id number] [place] [address]- 1170 May, [facility] [place] [facility] [address] [facility] [id number] [place] [address]- 4146 May, [facility] [place] [facility] [address] [id number] [place] [address]- 9807 May, [facility] [place] [facility] [address] [facility] [id number] [place] [address]- 9370 May, [facility] [place] [facility] [address] [id number] [place] [address]- 6208 Apr, [facility] [place] [facility] [address] [id number] [place] [address]- 4302 Apr, [facility] [place] [facility] [address] [facility] [id number] [place] [address]- 5938 Apr, [facility] [place] [facility] [address] [id number] [place] [address]- 0844 Apr, [facility] [place] [facility] [address] [id number] [place] [address]- 2921 Apr, 2014 [facility] [place] [facility] [address] [id number] [place] [address]- 4505 Apr, 2014 [facility] [place] [facility] [address] [id number] [place] [address]- 8055 Apr, [facility] [place] [facility] [address] [id number] [place] [address]- 9327 Apr, [facility] [place] [facility] [address] [id number] [place] [address]- 3148 Mar, [facility] [place] [facility] [address] [id number] [place] [address]- 8398 Mar, [facility] [place] [facility] [address] [id number] [place] [address]- 5091 Mar, [facility] [place] [facility] [address] [id number] [place] [address]- 1846 Mar, [facility] [place] [facility] [address] [id number] [place] [address]- 6012 Mar, [facility] [place] [facility] [address] [id number] [place] [address]- 1403 Mar, [facility] [place] [facility] [address] [id number] [place] [address]- 4482 Feb, [facility] [place] [facility] [address] [id number] [place] [address]- 1120 Feb, [facility] [place] [facility] [address] [id number] [place] [address]- 5861 Feb, [facility] [place] [facility] [address] [id number] [place] 7957 Feb, [facility] [place] [facility] [address] [id number] [place] [address]- 1461 24 Feb, 2014 [facility] [place] [facility] [address] [id number] [place] [address]- 2652 24 Feb, 2014 [facility] [place] [facility] [address] [id number] [place] [address]- 1006 Feb, [facility] [place] [facility] [address] [id number] [place] [address]- 3156 Feb, [facility] [place] [facility] [address] [id number] [place] [address]- 2958 Feb, [facility] [place] [facility] [address] [id number] [place] [address]- 1679 Feb, [facility] [place] [facility] [address] [id number] [place] [address]- 8399 Feb, [facility] [place] [facility] [address] [id number] [place] [address]- 4347 Feb, [facility] [place] [facility] [address] [id number] [place] [address]- 2347 18 Feb, 2014 [facility] [place] [facility] [address] [id number] [place] [address]- 1383 15 Feb, 2014 [facility] [place] [facility] [address] [id number] [place] [address]- 8112 15 Feb, 2014 [facility] [place] [facility] [address] [id number] [place] [address]- 8289 Feb, [facility] [place] [facility] [address] [id number] [place] [address]- 6053 Feb, [facility] [place] [facility] [address] [id number] [place] [address]- 0874 Feb, [facility] [place] [facility] [address] [id number] [place] [address]- 1201 09 Feb, 2014 [facility] [place] [facility] [address] [id number] [place]- 3885 Feb, [facility] [place] [facility] [address] [id number] [place] [address]- 1750 Feb, [facility] [place] [facility] [address] [id number] [place] [address]- 3355 Feb, [facility] [place] [facility] [address] [id number] [place] [address]- 8893 Feb, [facility] [place] [facility] [address] [id number] [place] [address]- 1905 Jan, [facility] [place] [facility] [address] [id number] [place] [address]- 8461 Jan, [facility] [place] [facility] [address] [id number] [place] [address]- 1058 Jan, [facility] [place] [facility] [address] [id number] [place] [address]- 3569 Jan, [facility] [place] [facility] [address] [id number] [place] [address]- 4512 Jan, [facility] [place] [facility] [address] [id number] [place] [address]- 9600 Jan, [facility] [place] [facility] [address] [id number] [place] [address]- 1134 Jan, [facility] [place] [facility] [address] [id number] [place] [address]- 2161 Jan, [facility] [place] [facility] [address] [id number] [place] [address]- 5984 Jan, [facility] [place] [facility] [address] [id number] [place] [address]- 3087 Dec, [facility] [place] [facility] [address] [id number] [place] [address]- 4112 Dec, [facility] [place] [facility] [address] [id number] [place] [address]- 6570 Dec, [facility] [place] [facility] [address] [id number] [place] [address]- 2172 Dec, [facility] [place] [facility] [address] [id number] [place] [address]- 3568 Dec, [facility] [place] [facility] [address] [id number] [place] [address]- 9906 Dec, [facility] [place] [facility] [address] [id number] [place] [address]- 3511 Dec, [facility] [place] [facility] [address] [id number] [place] [address]- 1456 Dec, [facility] [place] [facility] [address] [id number] [place] [address]- 4913 Dec, [facility] [place] [facility] [address] [id number] [place] [address]- 4316 Dec, [facility] [place] [facility] [address] [id number] [place] [address]- 2632 30 Nov, 2013 [facility] [place] [facility] [address] [id number] [place] [address]- 9402 30 Nov, 2013 [facility] [place] [facility] [address] [id number] [place] [address]- 5562 Nov, [facility] [place] [facility] [address] [id number] [place] [address]- 8786 Nov, 2013 [facility] [place] [facility] [address] [id number] [address]- 6018 Nov, 2013 [facility] [place] [facility] [address] [id number], [place] [address]- 5351 12 Nov, 2013 [facility] [place] [facility] [address] [id number] [place] [address]- 9394 11 Nov, 2013 [facility] [place] [facility] [address] [id number] [place] [address]- 3417 Nov, 2013 [facility] [place] [facility] [address] [id number] [place] [address]- 9929 02 Nov, 2013 [facility] [place] [facility] [address] [id number] [place] [address]- 9973 Nov, [facility] [place] [facility] [address] [id number] [place] [address]- 4163 Oct, [facility] [place] [facility] [address] [id number] [place] [address]- 9451 Oct, [facility] [place] [facility] [address] [id number] [place] [address]- 1249 Oct, [facility] [place] [facility] [address] [id number] [place] [address]- 8537 Oct, [facility] [place] [facility] [address] [id number] [place] [address]- 1095 Oct, [facility] [place] [facility] [address] [id number] [place] [address]- 0189 Oct, [facility] [place] [facility] [address] [id number] [place] [address]- 1220 Oct, [facility] [place] [facility] [address] [id number] [place] [address]- 3669 Oct, [facility] [place] [facility] [address] [id number] [place] [address]- 0493 Oct, [facility] [place] [facility] [address] [id number] [place] [address]- 2894 Oct, [facility] [place] [facility] [address] [id number] [place] [address]- 8079 Sep, [facility] [place] [facility] [address] [id number] [place] [address]- 4859 Sep, [facility] [place] [facility] [address] [id number] [place] [address]- 2645 Aug, [facility] [place] [facility] [address] [id number] [place] [address]- 0767 Aug, [facility] [place] [facility] [address] [id number] [place] [address]- 7827 Aug, [facility] [place] [facility] [address] [id number] [place] [address]- 3540 Aug, [facility] [place] [facility] [address] [id number] [place] [address]- 7173 Aug, [facility] [place] [facility] [address] [id number] [place] [address]- 6799 Aug, [facility] [place] [facility] [address] [id number] [place] [address]- 2591 Aug, [facility] [place] [facility] [address] [id number] [place] [address]- 2964 Aug, [facility] [place] [facility] [address] [id number] [place] [address]- 6449 Aug, [facility] [place] [facility] [address] [id number] [place] [address]- 4429 Aug, [facility] [place] [facility] [address] [id number] [place] [address] Aug, [facility] [place] [facility] [address] [id number] [place] [address] Aug, [facility] [place] [facility] [address] [id number] [place] [address] July, [facility] [place] [facility] [address] [id number] [place] [address] July, [facility] [place] [facility] [address] [id number] [place] [address] July, [facility] [place] [facility] [address] [id number] [place] [address] July, [facility] [place] [facility] [address] [id number] [place] [address] July, [facility] [place] [facility] [address] [id number] [place] [address] July, [facility] [place] [facility] [address] [id number] [place] [address] July, [facility] [place] [facility] [address] [id number] [place] [address] July, [facility] [place] [facility] [address] [id number] [place] [address] Jun, [facility] [place] [facility] [address] [id number] [place] [address] Jun, [facility] [place] [facility] [address] [id number] [place] [address] May, [facility] [place] [facility] [address] [id number] [place] [address] May, [facility] [place] [facility] [address] [id number] [place] [address] May, [facility] [place] [facility] [address] [id number] [place] [address] May, [facility] [place] [facility] [address] [id number] [place] [address] May, [facility] [place] [facility] [address] [id number] [place] [address] May, [facility] [place] [facility] [address] [id number] [place] [address] May, [facility] [place] [facility] [address] [id number] [place] [address] May, [facility] [place] [facility] [address] [id number] [place] [address] Apr, [facility] [place] [facility] [address] [id number] [place] [address] Apr, [facility] [place] [facility] [address] [id number] [place] [address] Apr, [facility] [place] [facility] [address] [id number] [place] [address] Apr, [facility] [place] [facility] [address] [id number] [place] [address]- [address] Apr, [facility] [place] [facility] [address] [id number] [place] [address] Apr, [facility] [place] [facility] [address] [id number] [place] [address] Apr, [facility] [place] [facility] [address] [id number] [place] [address]- [address] Apr, [facility] [place] [facility] [address] [id number] [place] [address] Mar, [facility] [place] [facility] [address] [id number] [place] [address] Mar, [facility] [place] [facility] [address] [id number] [place] [address] Mar, [facility] [place] [facility] [address] [id number] [place] [address] Mar, [facility] [place] [facility] [address] [id number] [place] [address] Mar, [facility] [place] [facility] [address] [id number] [place] [address] Mar, [facility] [place] [facility] [address] [id number] [place] [address] Mar, [facility] [place] [facility] [address] [id number] [place] [address]- [address] Mar, [facility] [place] [facility] [address] [id number] [place] [address] Mar, [facility] [place] [facility] [address] [id number] [place] [address] Mar, [facility] [place] [facility] [address] [id number] [place] [address] Feb, [facility] [place] [facility] [address] [id number] [place] [address] Feb, [facility] [place] [facility] [address] [id number] [place] [address] Feb, [facility] [place] [facility] [address] [id number] [place] [address]- [address] Feb, [facility] [place] [facility] [address] [id number] [place] [address] Jan, [facility] [place] [facility] [address] [id number] [place] [address]- [address] Jan, [facility] [place] [facility] [address] [id number] [place] [address]- [address] Dec, [facility] [place] [facility] [address] [id number] [place] [address]- [address] 30 Dec, 2012 [facility] [place] [facility] [address] [id number] [place] [address]- [address] Dec, [facility] [place] [facility] [address] [id number] [address] Dec, [facility] [place] [facility] [address] [id number] [address] Dec, [facility] [place] [facility] [address] [id number] [address] 18 Dec, 2012 [facility] [place] [facility] [address] [id number] [address] 14 Dec, 2012 [facility] [place] [facility] [address] [id number] [address] 14 Dec, 2012 [facility] [place] [facility] [address] [id number] [address] 11 Dec, 2012 [facility] [place] [facility] [address] [id number], [place] [address] Dec, [facility] [place] [facility] [address] [id number] [address] Dec, [facility] [place] [facility] [address] [id number] [place] [address] 1266 Dec, [facility] [address] [id number] [place] [address] Dec, [facility] [address] [id number] [place] [address] 4[address] Nov, [facility] [address] [id number] [place] [address]32 Nov, [facility] [address] [id number] [place] [address] 5387 Nov, [facility] [address] [id number] [place] [address]- 267[address] Nov, [facility] [address] [id number] [place] [address]- 3[address] Nov, [facility] [address] [id number] [place] [address] 7894 Oct, [facility] [address] [id number] [place] [address] 8418 Oct, [facility] [address] [id number] [place] [address]- 4297 Oct, [facility] [address] [id number] [place] [address] 2408 Oct, [facility] [address] [id number] [place] [address]- 8334 Oct, [facility] [address] [id number] [place] [address]- 3773 Oct, [facility] [place] [facility] [address] [id number] [place] [address]- 9148 Oct, [facility] [place] [facility] [address] [id number] [place] [address]- [address]655 Sep, [facility] [address] [id number] [place] [address]- 6842 Sep, [facility] [place] [facility] [address] [id number] [place] [address]- 2187 Sep, [facility] [address] [id number] [place] [address]- 3503 Aug, [facility] [address] [id number] [place] [address]- 5102 Aug, [facility] [place] [facility] [address] [id number] [place] [address]- 6176 Aug, [facility] [address] [id number] [place] [address]- 6712 Aug, [facility] [place] [facility] [address] [id number] [place] [address]- 4045 July, [facility] [address] [id number] [place] [address]- 5448 July, [facility] [address] [id number] [place] [address]- 4962 July, [facility] [address] [id number] [place] [address]- 9864 July, [facility] [address] [id number] [place] [address]- 5655 Jun, [facility] [place] [facility] [address] [id number] [place] [address]- 2626 Jun, [facility] [place] [facility] [address] [id number], [place] [address] May, [facility] [place] [facility] [address] [id number] [place] [address]- 7369 May, [facility] [place] [facility] [address] [id number] [place] [address]- [address] Apr, [facility] [place] [facility] [address] [id number] [address]- 4395 Apr, [facility] [place] [facility] [address] [id number] [address]- 7[address] Feb, [facility] [place] [facility] [address] [id number] [place] [address]- 1373 Feb, [facility] [place] [facility] [address] [id number] [place] [address] Feb, [facility] [place] [facility] [address] [id number] [place] [address] Feb, [facility] [place] [facility] [address] [id number] [place] [address] Feb, [facility] [place] [facility] [address] [id number] [place] [address] Feb, [facility] [place] [facility] [address] [id number] [place] [address]- 8935 Jan, [facility] [place] [facility] [address] [id number] [place] [address]- 5191 Jan, [facility] [place] [facility] [address] [id number] [place] [address]- 6328 Jan, [facility] [place] [facility] [address] [id number] [place] [address]- 1689 Jan, [facility] [place] [facility] [address] [facility] [id number] [place] [address]- 0609 Jan, [facility] [place] [facility] [address] [id number] [place] [address]- 4095 Jan, [facility] [place] [facility] [address] [id number] [address]- 5199 Jan, [facility] [place] [facility] [address] [id number] [place] [address]- 5559 15 Jan, 2012 [facility] [place] [facility] [address] [facility] [id number] [place] [address]- 6306 15 Jan, 2012 [facility] [place] [facility] [address] [id number] [address]- [address]31 12 Jan, 2012 [facility] [place] [facility] [address] [id number] [place] [address] 2543 Jan, [facility] [place] [facility] [address] [id number] [place] [address]- 1601 Jan, [facility] [place] [facility] [address] [id number] [place] [address] 2546 Jan, [facility] [place] [facility] [address] [id number] [place] [address]- 9587 Dec, [facility] [place] [facility] [address] [id number] [place] [address]- 3114 Dec, [facility] [place] [facility] [address] [id number] [place] [address]- 8143 Dec, [facility] [place] [facility] [address] [id number] [place] [address]- 2995 Dec, [facility] [place] [facility] [address] [id number] [place] [address]- 4885 Dec, [facility] [place] [facility] [address] [id number] [place] [address]- 1999 Dec, [facility] [place] [facility] [address] [id number] [place] [address]- 7738 Dec, [facility] [place] [facility] [address] [id number] [place] [address]- 0112 Nov, [facility] [place] [facility] [address] [id number] [place] [address]- 7255 Nov, [facility] [place] [facility] [address] [id number] [place] [address]- 8574 Oct, [facility] [place] [facility] [address] [id number] [place] [address]- 4436 Oct, [facility] [place] [facility] [address] [id number] [place] [address]- 2546 Sep, [facility] [place] [facility] [address] [id number] [place] [address]- 4816 Sep, [facility] [address] [id number] [place] [address]- 9277 Sep, [facility] [place] [facility] [address] [id number] [place] [address]- 7491 Sep, [facility] [address] [id number] [place] [address]- 7174 July, [facility] [place] [facility] [address] [id number] [place] [address]- 9162 July, [facility] [address] [id number] [place] [address]- 7298 July, [facility] [address] [id number] [place] [address]- 1426 Jun, [facility] [place] [facility] [address] [id number] [place] [address]- 0139 Jun, [facility] [place] [facility] [address] [id number] [place] [address]- 6397 Jun, [facility] [address] [id number] [place] [address]- 8647 Jun, [facility] [place] [facility] [address] [id number] [place] [address]- 2689 Jun, [facility] [place] [facility] [address] [id number] [place] [address]- 0852 Jun, [facility] [place] [facility] [address] [id number], [place] [address]- 9253 Jun, [facility] [place] [facility] [address] [id number] [place] [address]- 7880 Jun, [facility] [place] [facility] [address] [id number] [place] [address]- 3603 Jun, [facility] [place] [facility] [address] [id number] [place] [address]- 5953 May, [facility] [place] [facility] [address] [id number] [place] [address] 2549 May, [facility] [place] [facility] [address] [id number] [place] [address]- 4851 May, [facility] [place] [facility] [address] [id number] [place] [address] 2546 May, [facility] [place] [facility] [address] [id number] [place] [address] 2546 May, [facility] [place] [facility] [address] [id number] [place] [address] 2546 Apr, [facility] [place] [facility] [address] [id number] [place] [address]- 3929 Mar, [facility] [place] [facility] [address] [id number] [place] [address]- 2546 Mar, [facility] [place] [facility] [address] [id number] [place] [address]- 4459 Feb, [facility] [place] [facility] [address] [id number] [place] [address]- 6888 Feb, [facility] [place] [facility] [address] [id number] [place] [address]- 5377 Feb, [facility] [place] [facility] [address] [id number] [place] [address]- 7696 Jan, [facility] [place] [facility] [address] [id number] [place] [address] 2546 Dec, [facility] [place] [facility] [address] [id number] [place] [address]- 2541 Dec, [facility] [place] [facility] [address] [id number] [place] [address] 2543 Dec, [facility] [place] [facility] [address] [id number] [place] [address]- 2546 July, [facility] [place] [facility] [address] [id number] [place] [address] 2546 May, [facility] [place] [facility] [address] [id number] [place] [address]- 5433 22 Feb, 2010 [facility] [address] [id number] [place] [address]127 15 Feb, 2010 [facility] [address] [id number] [place] [address]- 8638 Feb, [facility] [address] [id number] [place] [address]- 0329 Jan, [facility] [address] [id number] [place] [address]- 5851 Dec, [facility] [address] [id number] [place] [address]- 9197 Dec, [facility] [address] [id number] [place] 4033 Oct, [facility] [address] [id number] [place] [address]- 7852 July, [facility] [address] [id number] [place] [address]- 4125 Apr, [facility] [address] [id number] [place] [address]- 2578 Mar, [facility] [address] [id number] [place] [address]- 1835 Feb, [facility] [address] [id number], [place] [address]- 5275 Feb, [facility] [place] [facility] [address] [id number] [place] [address]- 2330 Feb, [facility] [place] [facility] [address] [id number] [place] [address]- 4450 Feb, [facility] [place] [facility] [address] [id number] [place] [address]- 7474 Feb, [facility] [place] [facility] [address] [id number] [address]- 8856 Jan, [facility] [address] [facility] [id number] [place] [address]- 9646 Jan, [facility] [address] [facility] [id number], [place] [address]- 0116 Dec, [facility] [address] [facility] [id number] [place] [address]- 2546 14 Nov, 2008 IMMUNIZATIONS Vaccine Route Administration Date Status FLULAVAL QUAD 0.5ML (6 MO & UP) 2018 IM Intramuscular Dec 20, 2017 Administered SOCIAL HISTORY Never Assessed REASON FOR VISIT Flu shot PLAN OF CARE VITAL SIGNS MEDICATIONS Unknown Medications RESULTS No Results PROCEDURES Procedure Date Ordered Result Body Site FLULAVAL QUAD 0.5ML (6 MO AND UP) 2018 Dec 20, 2017 SINGLE IMMUNIZATION ADMIN Dec 20, 2017 INSTRUCTIONS MEDICATIONS ADMINISTERED No Known Medications [...] replacment 01/27/2017 Surgical History left knee replacement 2017 Hospitalization History [facility]- Right knee surgery. discharged 01/27/17 Hospitalization History [facility]- Left knee replacement 06/16/2017
--- OUTSIDE RECORDS SUMMARY | 2018-02-11 11:02 | XMS REPORT ---
Author Author STORMHERBER Connors [facility] Address [address] [place] [address] Care Team Providers Care Acupressurist Name Role Phone HERBER STORM Unavailable PROBLEMS Type Condition ICD9-CM Code TWD85-LT Code Onset Dates Condition Status SNOMED Code Problem Arthritis M19.90 Active 6009877 Problem Allergic state, subsequent encounter T78.40XD Active 659554010 Problem Hypothyroidism (acquired) E03.9 Active 131109201 Problem Mild intermittent asthma with exacerbation J45.21 Active 585681467 Problem COPD with exacerbation J44.1 Active 920804973 Problem Obstructive sleep apnea (adult) (pediatric) G47.33 Active 42045427 Problem Dependence on other enabling machines and devices Z99.89 Active 738661205 Problem Body mass index (BMI) of 45.0-49.9 in adult Z68.42 Active 634200706 Problem Morbid (severe) obesity due to excess calories E66.01 Active 842111576 ALLERGIES No Information ENCOUNTERS Encounter Location Date Diagnosis [place] [id number] [place] [address] 86286- 8011 Dec, [place] [id number] [place] [address] 19714- 4179 Dec, Encounter for immunization Z23 [facility] [id number] [place] [address] 71657- 0784 Nov, [place] [address] 29908- 3224 Oct, Prediabetes R73.03 [place] [id number] [place] [address] 00340- 5183 Oct, Essential hypertension I10 and Hypothyroidism (acquired) E03.9 [place] [address] [place] [address]- 8774 Oct, [facility] [id number] [place] [address] 02266- 8445 Oct, [facility] [id number] [place] [address] 02639- 4704 Oct, Essential hypertension I10 ; Hypothyroidism (acquired) [...] Obstructive sleep apnea (adult) (pediatric) G47.33 [facility] [id number] [place] [address] 14992 -2641 Sep, Mild intermittent asthma with exacerbation J45.21 [facility] [id number] [place] [address] 61851- 5267 Sep, [facility] [id number] [place] [address] 58302- 7428 Sep, Long-term use of high-risk medication Z79.899 [place] [id number] [place] [address] 43602- 5523 Sep, Long-term use of high-risk medication Z79.899 [facility] [id number] [place] [address] 75329- 7506 July, [facility] [id number] [place] [address] 00081- 8138 Jun, [facility] [id number] [place] [address] 31359- 8952 May, Asthma J45.909 [facility] [address] [place] [address] 94016- 5440 May, [facility] [place] [id number] [place] [address] 77986- 1919 Apr, Pre-op evaluation Z01.818 ; Allergic state, subsequent encounter T78.40XD and BMI 45.0-49.9, adult Z68.42 [place] [id number] [place] [address] 53048- 4660 Mar, [address] 30257- 7847 Mar, [facility] [address] [place] [id number] [place] [address] 54012 -6597 Mar, Cough R05 ; Acute nasopharyngitis J00 and BMI 45.0-49.9, adult Z68.42 [place] [id number] [place] [address] 51005- 2981 Mar, [address] 92080- 3496 Jan, Ganglion cyst of finger of right hand M67.441 [place] [id number] [place] [address] 04322- 7362 Dec, [place] [id number] [place] [address] 97597- 3087 Dec, Change in vision H53.9 ; Arthritis M19.90 ; Essential hypertension I10 ; GERD with esophagitis K21.0 ; Hypothyroidism (acquired) E03.9 and Ganglion cyst of joint of finger of left hand M67.442 [place] [id number] [place] [address] 28110- 1102 15 Nov, 2016 Encounter for immunization Z23 [address] 39876- 2367 07 Nov, 2016 [place] [id number] [place] [address] 84282- 7397 Sep, [place] [id number] [place] [address] 72303- 5813 Aug, [place] [id number] [place] [address] 23444- 8523 July, Cyst of joint of right hand M25.841 [place] [id number] [place] [address] 52084- 3995 May, [place] [address] 21347- 6663 May, Fever, unspecified R50.9 and Influenza A J10.1 [place] [address] 24451- 8748 May, Left shoulder pain, unspecified chronicity M25.512 [place] [id number] [place] [address] 16872- 1969 Apr, [place] [address] 83861- 4212 Apr, Infraspinatus tendon tear, left, subsequent encounter S46.812D and Supraspinatus tendon tear, left, subsequent encounter S46.812D [place] [id number] [place] [address] 81178- 7504 Apr, [place] [id number] [place] [address] 36644- 8160 Mar, Left shoulder pain, unspecified chronicity M25.512 [place] [id number] [place] [address] 37790- 6853 Mar, [place] [id number] [place] [address] 81173- 2614 Mar, Left shoulder pain, unspecified chronicity M25.512 [place] [id number] [place] [address] 40379- 4615 Feb, Chronic superficial gastritis without bleeding K29.30 ; Left upper quadrant pain R10.12 ; Essential hypertension I10 ; Dyspnea on exertion R06.09 and Palpitations R00.2 [place] [id number] [place] [address] 02997- 3749 Jan, Colon polyps K63.5 [facility] [address] 60132- 2466 Jan, Colon polyps K63.5 [facility] [id number] [place] [address] 64864- 5289 Dec, [facility] [address] 36338 -2336 Dec, GERD with esophagitis K21.0 [facility] [address] 93670- 5199 Nov, Arthritis pain M19.90 ; Colon polyps K63.5 ; Seasonal allergic rhinitis due to pollen J30.1 and Encounter for immunization Z23 [place] [address] 44924- 8150 Nov, [facility] [id number] [place] [address] 91512- 6723 Oct, [facility] [address] 39409- 1579 Sep, [facility] [id number] [place] [address] 55020- 3840 July, [facility] [id number] [place] [address] 27049- 5648 July, [facility] [id number] [place] [address] 81389- 1045 July, Asthma with acute exacerbation J45.901 and Bronchitis J40 [facility] [address] 22782- 9826 Jun, [facility] [id number] [place] [address] 91447- 7285 May, Other specified hypothyroidism E03.8 and 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 [place] [id number] [place] [address] 21694- 2201 Apr, [facility] [id number] [place] [address] 08585- 1020 Apr, Sacroiliac joint pain M53.3 [place] [id number] [place] [address] 88672- 5473 Mar, Other specified hypothyroidism E03.8 ; Restless legs syndrome G25.81 ; Asthma with acute exacerbation J45.901 and Bronchitis J40 [facility] [id number] [place] [address] 94258 -3657 Feb, Upper respiratory symptom R09.89 [place] [id number] [place] [address] 13319- 4671 Feb, Restless leg G25.81 and Asthma J45.909 [place] [id number] [place] [address] 34971- 7352 Dec, Rupture of tendon of right shoulder S46.911A [place] [id number] [place] [address] 34384- 9128 Dec, Sacroiliac joint pain M53.3 [facility] [id number] [place] [address] 44534- 7350 Nov, [place] [id number] [place] [address] 02431- 8119 Nov, Lumbago of lumbosacaral region with sciatica 724.2 and Sacroiliitis 720.2 [place] [id number] [place] [address] 78151- 9694 Nov, Influenza vaccine administered V04.81 [facility] [id number] [place] [address] 01850- 0815 Nov, [facility] [id number] [place] [address] 40299- 0462 Nov, [place] [id number] [place] [address] 76720- 5409 18 Nov, 2014 Thyroid function test abnormal 794.5 and Thyroid antibody positive 795.79 [place] [address] 90447- 7677 16 Nov, 2014 Hypothyroidism 244.9 ; Thyroid antibody positive 795.79 and Right shoulder pain 719.41 [place] [address] 72703- 0642 Oct, [place] [address] 04421- 3656 Oct, Thyroid function test abnormal 794.5 [place] [address] 38076- 9630 Oct, Hypertension 401.9 and Bilateral leg pain 729.5 [place] [address] 70005- 0552 Oct, [place] [address] 47512- 7196 Oct, Bilateral leg pain 729.5 and Hypertension 401.9 [place] [address] 92805- 7936 Sep, Bilateral leg pain 729.5 ; Hypertension 401.9 and Edema 782.3 [place] [id number] [place] [address] 38352- 2047 Aug, Unspecified hereditary and idiopathic peripheral neuropathy 356.9 and Arthritis 716.90 [place] [id number] [place] [address] 13972- 4723 Aug, [place] [address] 34403- 6695 July, [place] [id number] [place] [address] 88004- 3413 Jun, [place] [address] 53486- 2628 14 Jun, 2014 [facility] [place] [facility] [address] [id number] [place] [address]- 7078 13 Jun, 2014 [facility] [place] [facility] [address] [id number] [place] [address]- 7908 25 May, 2014 [facility] [place] [facility] [address] [id number] [place] [address]- 3200 May, [facility] [place] [facility] [address] [id number] [place] [address]- 5345 May, [facility] [place] [facility] [address] [id number] [place] [address]- 3202 May, [facility] [place] [facility] [address] [id number] [place] [address]- 0848 May, [facility] [place] [facility] [address] [id number] [place] [address]- 0716 May, [facility] [place] [facility] [address] [id number] [place] [address]- 1111 10 May, 2014 [facility] [place] [facility] [address] [id number] [place] [address]- 0755 May, [facility] [place] [facility] [address] [id number] [place] [address]- 6928 May, [facility] [place] [facility] [address] [id number] [place] [address]- 4540 May, [facility] [place] [facility] [address] [id number] [place] [address]- 6078 May, [facility] [place] [facility] [address] [id number] [place] [address]- 8648 Apr, [facility] [place] [facility] [address] [id number] [place] [address]- 7233 Apr, [facility] [place] [facility] [address] [id number] [place] [address]- 8868 Apr, [facility] [place] [facility] [address] [id number] [place] [address]- 6735 Apr, 2014 [facility] [place] [facility] [address] [id number] [place] [address]- 4642 Apr, 2014 [facility] [place] [facility] [address] [id number] [place] [address]- 0406 Apr, 2014 [facility] [place] [facility] [address] [id number] [place] [address]- 4466 Apr, [facility] [place] [facility] [address] [id number] [place] [address]- 6958 Apr, [facility] [place] [facility] [address] [id number] [place] [address]- 5457 Mar, [facility] [place] [facility] [address] [id number] [place] [address]- 1519 Mar, [facility] [place] [facility] [address] [id number] [place] [address]- 2643 Mar, [facility] [place] [facility] [address] [id number] [place] [address]- 2175 Mar, [facility] [place] [facility] [address] [id number] [place] [address]- 5223 Mar, [facility] [place] [facility] [address] [id number] [place] [address]- 5375 Mar, [facility] [place] [facility] [address] [id number] [place] [address]- 0692 Feb, [facility] [place] [facility] [address] [id number] [place] [address]- 3609 Feb, [facility] [place] [facility] [address] [id number] [place] [address]- 7192 Feb, [facility] [place] [facility] [address] [id number] [place] [address]- 0705 Feb, [facility] [place] [facility] [address] [id number] [place] [address]- 9154 Feb, [facility] [place] [facility] [address] [id number] [place] [address]- 8092 24 Feb, 2014 [facility] [place] [facility] [address] [id number] [place] [address]- 6836 Feb, [facility] [place] [facility] [address] [id number] [place] [address]- 8638 Feb, [facility] [place] [facility] [address] [id number] [place] [address]- 7596 Feb, [facility] [place] [facility] [address] [id number] [place] [address]- 3985 Feb, [facility] [place] [facility] [address] [id number] [place] [address]- 7337 Feb, [facility] [place] [facility] [address] [id number] [place] [address]- 5682 Feb, [facility] [place] [facility] [address] [id number] [place] [address]- 6596 18 Feb, 2014 [facility] [place] [facility] [address] [id number] [place] [address]- 7533 15 Feb, 2014 [facility] [place] [facility] [address] [id number] [place] [address]- 5612 15 Feb, 2014 [facility] [place] [facility] [address] [id number] [place] [address]- 5507 10 Feb, 2014 [facility] [place] [facility] [address] [id number] [place] [address]- 3101 10 Feb, 2014 [facility] [place] [facility] [address] [id number] [place] [address]- 4565 09 Feb, 2014 [facility] [place] [facility] [address] [id number] [place] [address]- 4284 09 Feb, 2014 [facility] [place] [facility] [address] [id number] [place] 8428 Feb, [facility] [place] [facility] [address] [id number] [place] 9799 Feb, [facility] [place] [facility] [address] [id number] [place] 0865 Feb, [facility] [place] [facility] [address] [id number] [place] 1322 Feb, [facility] [place] [facility] [address] [id number] [place] [address]- 7357 Jan, [facility] [place] [facility] [address] [id number] [place] [address]- 0168 Jan, [facility] [place] [facility] [address] [id number] [place] [address]- 7147 Jan, [facility] [place] [facility] [address] [id number] [place] [address]- 9366 Jan, [facility] [place] [facility] [address] [id number] [place] [address]- 2800 Jan, [facility] [place] [facility] [address] [id number] [place] [address]- 9666 Jan, [facility] [place] [facility] [address] [id number] [place] [address]- 9248 Jan, [facility] [place] [facility] [address] [facility] [id number] [place] [address]- 7556 Jan, [facility] [place] [facility] [address] [id number] [place] [address]- 2707 Jan, [facility] [place] [facility] [address] [id number] [place] [address]- 4872 Dec, [facility] [place] [facility] [address] [id number] [place] [address]- 4675 Dec, [facility] [place] [facility] [address] [id number] [place] [address]- 2340 Dec, [facility] [place] [facility] [address] [id number] [place] [address]- 0726 Dec, [facility] [place] [facility] [address] [id number] [place] [address]- 5402 Dec, [facility] [place] [facility] [address] [id number] [place] [address]- 0406 Dec, [facility] [place] [facility] [address] [id number] [place] [address]- 7981 Dec, [facility] [place] [facility] [address] [id number] [place] [address]- 5219 Dec, [facility] [place] [facility] [address] [id number] [place] [address]- 1873 Dec, [facility] [place] [facility] [address] [id number] [place] [address]- 5805 Dec, [facility] [place] [facility] [address] [id number] [place] [address]- 6681 30 Nov, 2013 [facility] [place] [facility] [address] [id number] [place] [address]- 3480 30 Nov, 2013 [facility] [place] [facility] [address] [id number] [place] [address]- 8306 Nov, 2013 [facility] [place] [facility] [address] [id number] [place] [address]- 9235 Nov, 2013 [facility] [place] [facility] [address] [id number] [place] [address]- 4735 12 Nov, 2013 [facility] [place] [facility] [address] [id number], [place] [address]- 5462 12 Nov, 2013 [facility] [place] [facility] [address] [id number] [place] [address]- 8273 11 Nov, 2013 [facility] [place] [facility] [address] [id number] [place] [address]- 4592 11 Nov, 2013 [facility] [place] [facility] [address] [id number] [place] [address]- 0680 02 Nov, 2013 [facility] [place] [facility] [address] [id number] [address]- 1984 Nov, [facility] [place] [facility] [address] [id number] [place] [address]- 1841 Oct, [facility] [place] [facility] [address] [id number] [place] [address]- 0397 Oct, [facility] [place] [facility] [address] [id number] [place] [address]- 9605 Oct, [facility] [place] [facility] [address] [id number] [place] [address]- 2221 Oct, [facility] [place] [facility] [address] [id number] [place] [address]- 4270 Oct, [facility] [place] [facility] [address] [id number] [place] [address]- 9208 Oct, [facility] [place] [facility] [address] [id number] [place] [address]- 9064 Oct, [facility] [place] [facility] [address] [id number] [place] [address]- 4265 Oct, [facility] [place] [facility] [address] [id number] [place] [address]- 6760 Oct, [facility] [place] [facility] [address] [id number] [place] [address]- 8787 Oct, [facility] [place] [facility] [address] [id number] [place] [address]- 0312 Sep, [facility] [place] [facility] [address] [id number] [place] [address]- 7158 Sep, [facility] [place] [facility] [address] [id number] [place] [address]- 6949 Aug, [facility] [place] [facility] [address] [id number] [place] [address]- 7843 Aug, [facility] [place] [facility] [address] [id number] [place] [address]- 1161 Aug, [facility] [place] [facility] [address] [id number] [place] [address]- 1358 13 Aug, 2013 [facility] [place] [facility] [address] [id number] [place] [address]- 9134 Aug, [facility] [place] [facility] [address] [id number] [place] [address]- 7499 Aug, [facility] [place] [facility] [address] [id number] [place] [address]- 7064 Aug, [facility] [place] [facility] [address] [id number] [place] [address]- 8181 Aug, [facility] [place] [facility] [address] [id number] [place] [address]- 4638 Aug, [facility] [place] [facility] [address] [id number] [place] [address]- 3548 Aug, [facility] [place] [facility] [address] [id number] [place] [address]- 3384 Aug, [facility] [place] [facility] [address] [id number] [place] [address]- 7112 Aug, [facility] [place] [facility] [address] [id number] [place] [address]- 4298 July, [facility] [place] [facility] [address] [id number] [place] [address]- 2709 July, [facility] [place] [facility] [address] [id number] [place] [address]- 1804 July, [facility] [place] [facility] [address] [id number] [place] [address]- 4541 July, [facility] [place] [facility] [address] [id number] [place] [address] July, [facility] [place] [facility] [address] [id number] [place] [address] July, [facility] [place] [facility] [address] [id number] [place] [address] July, [facility] [place] [facility] [address] [id number] [place] [address] July, [facility] [place] [facility] [address] [id number] [place] [address] Jun, [facility] [place] [facility] [address] [id number] [place] [address] Jun, [facility] [place] [facility] [address] [id number] [place] [address] May, [facility] [place] [facility] [address] [id number] [place] [address] May, [facility] [place] [facility] [address] [id number] [place] [address] May, [facility] [place] [facility] [address] [id number] [place] [address] May, [facility] [place] [facility] [address] [id number] [place] [address] May, [facility] [place] [facility] [address] [id number] [place] [address] May, [facility] [place] [facility] [address] [id number] [place] [address] May, [facility] [place] [facility] [address] [id number] [place] [address] May, [facility] [place] [facility] [address] [id number] [place] [address] Apr, [facility] [place] [facility] [address] [id number] [place] [address]- [address] Apr, [facility] [place] [facility] [address] [id number] [place] [address] Apr, [facility] [place] [facility] [address] [id number] [place] [address]- [address] Apr, [facility] [place] [facility] [address] [id number] [place] [address]- [address] Apr, [facility] [address] [id number] [place] [address] Apr, [facility] [place] [facility] [address] [id number] [place] [address] 47[address] Apr, [facility] [place] [facility] [address] [id number] [place] [address] Apr, [facility] [place] [facility] [address] [id number] [place] [address] Mar, [facility] [place] [facility] [address] [id number] [place] [address] Mar, [facility] [place] [facility] [address] [id number] [place] [address] Mar, [facility] [place] [facility] [address] [id number] [place] [address] Mar, [facility] [address] [id number] [place] [address] Mar, [facility] [place] [facility] [address] [id number] [place] [address] Mar, [facility] [address] [id number] [place] [address] Mar, [facility] [place] [facility] [address] [id number] [place] [address] Mar, [facility] [place] [facility] [address] [id number] [place] [address] Mar, [facility] [place] [facility] [address] [id number] [place] [address] Mar, [facility] [place] [facility] [address] [id number] [place] [address] Feb, [facility] [place] [facility] [address] [id number] [place] [address] Feb, [facility] [place] [facility] [address] [id number] [place] [address] Feb, [facility] [place] [facility] [address] [id number] [place] [address] Feb, [facility] [place] [facility] [address] [id number] [place] [address] Jan, [facility] [place] [facility] [address] [id number] [place] [address] Jan, [facility] [place] [facility] [address] [id number] [place] [address] Dec, [facility] [place] [facility] [address] [id number] [place] [address]- [address] Dec, [facility] [place] [facility] [address] [id number] [place] [address]679 Dec, [facility] [place] [facility] [address] [id number], [place] [address] Dec, [facility] [place] [facility] [address] [id number] [place] [address]99 Dec, [facility] [place] [facility] [address] [id number], [place] [address] Dec, [facility] [place] [facility] [address] [id number], [place] [address] Dec, [facility] [place] [facility] [address] [id number], [place] [address] 14 Dec, 2012 [facility] [place] [facility] [address] [id number] [place] [address]- [address] Dec, [facility] [place] [facility] [address] [id number] [address] [address] Dec, [facility] [place] [facility] [address] [id number] [address] Dec, [facility] [place] [facility] [address] [id number] [place] [address] Dec, [facility] [place] [facility] [address] [id number] [place] [address] 67[address] Dec, [facility] [place] [facility] [address] [id number] [place] [address] 9878 Nov, [facility] [place] [facility] [address] [id number] [place] [address] 9541 Nov, [facility] [place] [facility] [address] [id number] [place] [address]- 4360 Nov, [facility] [place] [facility] [address] [id number] [place] [address] 9516 Nov, [facility] [place] [facility] [address] [id number] [place] [address] 2043 Nov, [facility] [place] [facility] [address] [id number] [place] [address]- 4[address] Oct, [facility] [place] [facility] [address] [id number] [place] [address]- 0092 Oct, [facility] [place] [facility] [address] [id number] [place] [address]- 4604 Oct, [facility] [place] [facility] [address] [id number] [place] [address]- 3882 Oct, [facility] [place] [facility] [address] [id number] [place] [address]- 2366 Oct, [facility] [place] [facility] [address] [id number] [place] [address]- 7161 Oct, [facility] [place] [facility] [address] [id number] [place] [address]- 6654 Oct, [facility] [place] [facility] [address] [id number] [place] [address]- 6448 Sep, [facility] [place] [facility] [address] [id number] [place] [address]- 4743 Sep, [facility] [place] [facility] [address] [id number] [place] [address]- 9292 Sep, [facility] [address] [id number] [place] [address]- 8690 Aug, [facility] [place] [facility] [address] [id number] [place] [address]- 6627 Aug, [facility] [place] [facility] [address] [id number] [place] [address]- 3392 Aug, [facility] [address] [id number] [place] [address]- 7407 Aug, [facility] [place] [facility] [address] [id number] [place] [address]- 8820 July, [facility] [address] [id number] [place] [address] 7789 July, [facility] [address] [id number] [place] [address] 1010 July, [facility] [address] [id number] [place] [address]- 2312 July, [facility] [address] [id number] [place] [address]- 4926 Jun, [facility] [place] [facility] [address] [id number] [place] [address] 7126 Jun, [facility] [address] [id number] [place] [address]- 7069 May, [facility] [place] [facility] [address] [id number] [place] [address] 1263 May, [facility] [place] [facility] [address] [id number] [place] [address]- 9022 Apr, [facility] [place] [facility] [address] [id number] [place] [address] 0497 Apr, [facility] [place] [facility] [address] [id number] [place] [address]- 7933 Feb, [facility] [place] [facility] [address] [id number] [place] [address]- 1341 Feb, [facility] [place] [facility] [address] [id number] [place] [address]- 2096 Feb, [facility] [place] [facility] [address] [id number] [place] [address]- 0936 Feb, [facility] [place] [facility] [address] [id number] [place] [address]- 5007 Feb, [facility] [place] [facility] [address] [id number] [place] [address] Feb, [facility] [place] [facility] [address] [id number] [place] [address]- 2211 Jan, [facility] [place] [facility] [address] [id number] [place] [address]- 7852 Jan, [facility] [place] [facility] [address] [id number] [place] [address]- 4924 Jan, [facility] [place] [facility] [address] [id number] [place] [address]- 0629 Jan, [facility] [place] [facility] [address] [id number] [place] [address]- 5256 Jan, [facility] [place] [facility] [address] [id number] [place] [address]- 2432 Jan, [facility] [place] [facility] [address] [id number] [place] [address]- 4741 Jan, [facility] [place] [facility] [address] [id number] [place] [address]- 3651 15 Jan, 2012 [facility] [place] [facility] [address] [id number] [place] [address]- 2129 15 Jan, 2012 [facility] [place] [facility] [address] [id number] [place] [address]- 7117 Jan, [facility] [place] [facility] [address] [id number] [place] [address]- 2546 Jan, [facility] [place] [facility] [address] [id number] [place] [address]- 3177 Jan, [facility] [place] [facility] [address] [id number] [place] [address]- 2546 Jan, [facility] [place] [facility] [address] [id number] [place] [address]- 8048 Dec, [facility] [place] [facility] [address] [id number] [place] [address]- 3459 Dec, [facility] [place] [facility] [address] [id number] [place] [address]- 1728 Dec, [facility] [place] [facility] [address] [id number] [place] [address]- 9636 Dec, [facility] [place] [facility] [address] [id number] [place] [address]- 4847 Dec, [facility] [place] [facility] [address] [id number] [place] [address]- 3564 Dec, [facility] [place] [facility] [address] [id number] [place] [address]- 5940 Dec, [facility] [place] [facility] [address] [id number] [place] [address]- 0463 Nov, [facility] [place] [facility] [address] [id number] [place] [address]- 2543 Nov, [facility] [place] [facility] [address] [id number] [place] [address]- 2546 Oct, [facility] [place] [facility] [address] [id number] [place] [address]- 2546 Oct, [facility] [place] [facility] [address] [id number] [place] [address]- 2546 Sep, [facility] [place] [facility] [address] [id number] [place] [address]- 1809 Sep, [facility] [address] [id number] [place] [address]- 4392 Sep, [facility] [place] [facility] [address] [id number] [place] [address]- 3566 Sep, [facility] [place] [facility] [address] [id number] [place] [address]- 6363 July, [facility] [place] [facility] [address] [id number] [place] [address]- 8220 July, [facility] [address] [id number] [place] [address] July, [facility] [place] [facility] [address] [id number] [place] [address]- 8097 Jun, [facility] [place] [facility] [address] [id number] [place] [address]- 3148 Jun, [facility] [place] [facility] [address] [id number] [place] [address]- 2033 Jun, [facility] [place] [facility] [address] [id number] [place] [address]- 1425 Jun, [facility] [place] [facility] [address] [id number] [place] [address]- 5320 Jun, [facility] [place] [facility] [address] [id number] [place] [address]- 8922 Jun, [facility] [place] [facility] [address] [id number] [place] [address]- 4495 Jun, [facility] [place] [facility] [address] [id number] [place] [address]- 7036 Jun, [facility] [place] [facility] [address] [id number] [place] [address]- 6759 Jun, [facility] [place] [facility] [address] [id number] [place] [address]- 3726 May, [facility] [place] [facility] [address] [id number][place] [address]- 3060 May, [facility] [address] [id number] [place] [address]- 8625 May, [facility] [place] [facility] [address] [id number] [place] [address] 2546 May, [facility] [place] [facility] [address] [id number] [place] [address] 2546 May, [facility] [place] [facility] [address] [id number] [place] [address]- 4953 Apr, [facility] [place] [facility] [address] [id number] [place] [address]- 1844 Mar, [facility] [place] [facility] [address] [id number] [place] [address] 2546 Mar, [facility] [address] [facility] [id number] [place] [address]- 7942 Feb, [facility] [place] [facility] [address] [id number] [place] [address]- 1788 Feb, [facility] [place] [facility] [address] [facility] [id number] [place] [address]- 7820 Feb, [facility] [place] [facility] [address] [facility] [id number] [place] [address]- 5962 Jan, [facility] [place] [facility] [address] [id number] [place] [address]- 0536 Dec, [facility] [place] [facility] [address] [id number] [place] [address] 2545 Dec, [facility] [place] [facility] [address] [id number] [place] [address]- 2138 Dec, [facility] [place] [facility] [address] [facility] [id number] [place] [address] 2546 July, [facility] [place] [facility] [address] [facility] [id number] [place] [address] 2546 May, [facility] [place] [facility] [address] [id number] [place] [address]- 5650 22 Feb, 2010 [facility] [address] [id number] [place] [address]- 3806 15 Feb, 2010 [facility] [place] [facility] [address] [id number] [place] [address]- 2546 09 Feb, 2010 [facility] [address] [id number] [place] [address]- 3883 Jan, [facility] [address] [id number] [place] [address]- 3317 Dec, [facility] [address] [id number] [place] [address]- 7694 Dec, [facility] [address] [id number] [place] [address]- 0866 Oct, [facility] [address] [id number] [place] [address]- 8753 July, [facility] [address] [id number] [place] [address]- 5091 Apr, [facility] [address] [id number] [place] [address]- 4048 Mar, [facility] [address] [id number] [place] [address]- 4755 18 Feb, 2009 [facility] [place] [facility] [address] [id number] [place] [address]- 0191 Feb, [facility] [place] [facility] [address] [id number] [place] [address] Feb, [facility] [place] [facility] [address] [id number] [place] [address] Feb, [facility] [place] [facility] [address] [id number] [place] [address]- 0269 02 Feb, 2009 [facility] [place] [facility] [address] [id number] [place] [address] Jan, [facility] [address] [facility] [id number] [place] [address]- 5503 Jan, [facility] [address] [facility] [id number] [address]- 1666 Dec, [facility] [address] [facility] [id number] [place] [address]- 3980 14 Nov, 2008 IMMUNIZATIONS No Known Immunizations SOCIAL HISTORY Never Assessed REASON FOR VISIT Medication question PLAN OF CARE VITAL SIGNS MEDICATIONS Medication Instructions Dosage Frequency Start Date End Date Duration Status Duloxetine HCl 60 mg Orally Once a day 1 capsule 24h Nov, 30 day(s) Active RESULTS No Results PROCEDURES No Known [...] History left knee replacement 2018 Hospitalization History [facility]- Right knee surgery. discharged 01/27/17 Hospitalization History [facility]- Left knee replacement 06/16/2017
--- OUTSIDE RECORDS SUMMARY | 2018-02-11 11:03 | XMS REPORT ---
Author Author STORMHERBER [facility] Address [address] [place] [address] Care Team Providers Care Customer Account Coordinator Name Role Phone HERBER STORM Unavailable PROBLEMS Type Condition ICD9-CM Code [id number] Code Onset Dates Condition Status SNOMED Code Problem Arthritis M19.90 Active 6880048 Problem Allergic state, subsequent encounter T78.40XD Active 676031109 Problem Hypothyroidism (acquired) E03.9 Active 890545123 Problem Mild intermittent asthma with exacerbation J45.21 Active 360229024 Problem COPD with exacerbation J44.1 Active 257220114 Problem Obstructive sleep apnea (adult) (pediatric) G47.33 Active 64146639 Problem Dependence on other enabling machines and devices Z99.89 Active 905118660 Problem Body mass index (BMI) of 45.0-49.9 in adult Z68.42 Active 236639842 Problem Morbid (severe) obesity due to excess calories E66.01 Active 744512174 ALLERGIES No Information ENCOUNTERS Encounter Location Date Diagnosis [facility] [id number] [place] [address] 78399- 6535 Dec, [facility] [id number] [place] [address] 69578- 6788 Nov, [facility] [id number] [place] [address] 61073- 0918 Oct, Prediabetes R73.03 [facility] [id number] [place] [address] 13657- 1851 Oct, Essential hypertension I10 and Hypothyroidism (acquired) E03.9 [facility] [id number] [place] [address] 89196- 3909 Oct, [facility] [id number] [place] [address] 97446- 9865 Oct, [facility] [id number] [place] [address] 23924- 8070 Oct, Essential hypertension I10 ; Hypothyroidism (acquired) [...] and Obstructive sleep apnea (adult) (pediatric) G47.33 [facility] [id number] [place] [address] 05555 -0098 Sep, Mild intermittent asthma with exacerbation J45.21 [place] [id number] [place] [address] 33653- 1974 Sep, [place] [address] 99310- 4715 Sep, Long-term use of high-risk medication Z79.899 [place] [id number] [place] [address] 09973- 2275 Sep, Long-term use of high-risk medication Z79.899 [facility] [id number] [place] [address] 63697- 9360 July, [facility] [id number] [place] [address] 54038- 6187 Jun, [facility] [id number] [place] [address] 54356- 5418 May, Asthma J45.909 [place] [address] 43362- 4230 May, [facility] [id number] [place] [address] 75888- 7011 Apr, Pre-op evaluation Z01.818 ; Allergic state, subsequent encounter T78.40XD and BMI 45.0-49.9, adult Z68.42 [facility] [id number] [place] [address] 47091- 1031 Mar, [facility] [address] 76759- 5555 Mar, [facility] [address] 67445 -4381 Mar, Cough R05 ; Acute nasopharyngitis J00 and BMI 45.0-49.9, adult Z68.42 [place] [address] 43622- 0178 Mar, [place] [address] 41248- 4235 Jan, Ganglion cyst of finger of right hand M67.441 [place] [address] 71257- 1900 Dec, [facility] [address] 76274- 2029 Dec, Change in vision H53.9 ; Arthritis M19.90 ; Essential hypertension I10 ; GERD with esophagitis K21.0 ; Hypothyroidism (acquired) E03.9 and Ganglion cyst of joint of finger of left hand M67.442 [place] [address] 86847- 5681 15 Nov, 2016 Encounter for immunization Z23 [place] [address] 64627- 1054 Nov, [place] [address] 76754- 2871 Sep, [place] [address] 15198- 9699 Aug, [place] [address] 14337- 3357 July, Cyst of joint of right hand M25.841 [place] [id number] [place] [address] 81248- 4698 May, [place] [address] 21164- 5732 May, Fever, unspecified R50.9 and Influenza A J10.1 [place] [address] 96604- 2286 May, Left shoulder pain, unspecified chronicity M25.512 [place] [address] 20922- 2751 Apr, [place] [address] 48382- 8266 Apr, Infraspinatus tendon tear, left, subsequent encounter S46.812D and Supraspinatus tendon tear, left, subsequent encounter S46.812D [place] [id number] [place] [address] 25983- 3390 Apr, [place] [id number] [place] [address] 05772- 0115 Mar, Left shoulder pain, unspecified chronicity M25.512 [place] [id number] [place] [address] 71305- 8714 Mar, [place] [id number] [place] [address] 46724- 7282 Mar, Left shoulder pain, unspecified chronicity M25.512 [place] [id number] [place] [address] 24071- 5678 Feb, Chronic superficial gastritis without bleeding K29.30 ; Left upper quadrant pain R10.12 ; Essential hypertension I10 ; Dyspnea on exertion R06.09 and Palpitations R00.2 [place] [id number] [place] [address] 88042- 6720 Jan, Colon polyps K63.5 [place] [id number] [place] [address] 97684- 5991 Jan, Colon polyps K63.5 [facility] [address] 14568- 6360 Dec, [facility] [id number] [place] [address] 63997 -7544 Dec, GERD with esophagitis K21.0 [facility] [address] 48284- 8428 Nov, Arthritis pain M19.90 ; Colon polyps K63.5 ; Seasonal allergic rhinitis due to pollen J30.1 and Encounter for immunization Z23 [facility] [address] 01540- 5230 Nov, [facility] [address] 86085- 5313 Oct, [facility] [address] 08178- 7062 Sep, [facility] [id number] [place] [address] 87603- 7908 July, [facility] [id number] [place] [address] 74382- 6063 July, [facility] [id number] [place] [address] 16592- 3710 July, Asthma with acute exacerbation J45.901 and Bronchitis J40 [facility] [id number] [place] [address] 85737- 9513 Jun, [facility] [address] 79273- 8215 May, Other specified hypothyroidism E03.8 and 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 [facility] [id number] [place] [address] 33057- 9220 Apr, [facility] [address] [place] [address]- 1304 Apr, Sacroiliac joint pain M53.3 [facility] [address] 07548- 3790 Mar, Other specified hypothyroidism E03.8 ; Restless legs syndrome G25.81 ; Asthma with acute exacerbation J45.901 and Bronchitis J40 [facility] [address] 55195 -2718 Feb, Upper respiratory symptom R09.89 [facility] [address] 85871- 1529 Feb, Restless leg G25.81 and Asthma J45.909 [facility] [address] 76890- 9403 Dec, Rupture of tendon of right shoulder S46.911A [place] [address] 22668- 2791 Dec, Sacroiliac joint pain M53.3 [place] [address] 76827- 7314 Nov, [place] [address] 04636- 2850 Nov, Lumbago of lumbosacaral region with sciatica 724.2 and Sacroiliitis 720.2 [place] [id number] [place] [address] 55782- 5763 Nov, Influenza vaccine administered V04.81 [place] [address] 61247- 1236 Nov, [place] [address] 23575- 9376 Nov, [place] [address] 94613- 2960 18 Nov, 2014 Thyroid function test abnormal 794.5 and Thyroid antibody positive 795.79 [facility] [id number] [place] [address] 58091- 3948 16 Nov, 2014 Hypothyroidism 244.9 ; Thyroid antibody positive 795.79 and Right shoulder pain 719.41 [facility] [id number] [place] [address] 61166- 9087 Oct, [facility] [id number] [place] [address] 38123- 1063 Oct, Thyroid function test abnormal 794.5 [facility] [id number] [place] [address] 28532- 8481 Oct, Hypertension 401.9 and Bilateral leg pain 729.5 [facility] [id number] [place] [address] 04409- 9155 Oct, [facility] [id number] [place] [address] 30760- 3574 Oct, Bilateral leg pain 729.5 and Hypertension 401.9 [facility] [id number] [place] [address] 10201- 5100 Sep, Bilateral leg pain 729.5 ; Hypertension 401.9 and Edema 782.3 [facility] [id number] [place] [address] 99592- 7529 Aug, Unspecified hereditary and idiopathic peripheral neuropathy 356.9 and Arthritis 716.90 [facility] [id number] [place] [address] 02485- 3990 Aug, [facility] [id number] [place] [address] 55342- 6227 July, [facility] [id number] [place] [address] 06772- 0331 Jun, [facility] [id number] [place] [address] 26306- 0851 Jun, [facility] [id number] [place] [address] 17036- 8197 Jun, [facility] [place] [facility] [address] [id number] [place] [address]- 3122 May, [facility] [place] [facility] [address] [id number] [place] [address]- 9217 May, [facility] [place] [facility] [address] [id number] [place] [address]- 3101 May, [facility] [place] [facility] [address] [id number] [place] [address]- 6780 May, [facility] [place] [facility] [address] [id number] [place] [address]- 9580 May, [facility] [place] [facility] [address] [id number] [place] [address]- 5204 May, [facility] [place] [facility] [address] [id number] [place] [address]- 0296 May, [facility] [place] [facility] [address] [id number] [place] [address]- 7385 May, [facility] [place] [facility] [address] [id number] [place] [address]- 5572 May, [facility] [place] [facility] [address] [id number] [place] [address]- 4725 May, [facility] [place] [facility] [address] [id number] [place] [address]- 1442 May, [facility] [place] [facility] [address] [id number] [place] [address]- 3840 Apr, [facility] [place] [facility] [address] [id number] [place] [address]- 0734 Apr, [facility] [place] [facility] [address] [id number] [place] [address]- 9897 Apr, [facility] [place] [facility] [address] [id number] [place] [address]- 9956 Apr, [facility] [place] [facility] [address] [id number] [place] [address]- 8946 Apr, 2014 [facility] [place] [facility] [address] [id number] [place] [address]- 4036 Apr, 2014 [facility] [place] [facility] [address] [id number] [place] [address]- 7606 Apr, [facility] [place] [facility] [address] [id number] [place] [address]- 3536 Apr, [facility] [place] [facility] [address] [id number] [place] [address]- 8080 Mar, [facility] [place] [facility] [address] [id number] [place] [address]- 8132 Mar, [facility] [place] [facility] [address] [id number] [place] [address]- 3114 Mar, [facility] [place] [facility] [address] [id number] [place] [address]- 0385 Mar, [facility] [place] [facility] [address] [id number] [place] [address]- 5952 Mar, [facility] [place] [facility] [address] [id number] [place] [address]- 2742 Mar, [facility] [place] [facility] [address] [id number] [place] [address]- 0601 Feb, [facility] [place] [facility] [address] [id number] [place] [address]- 2546 Feb, [facility] [place] [facility] [address] [id number] [place] [address]- 254 Feb, [facility] [place] [facility] [address] [id number] [place] [address]- 7520 Feb, [facility] [place] [facility] [address] [id number] [place] 9716 Feb, [facility] [place] [facility] [address] [id number] [place] 6511 Feb, [facility] [place] [facility] [address] [id number] [place] [address]- 9237 Feb, [facility] [place] [facility] [address] [id number] [place] [address]- 9951 Feb, [facility] [place] [facility] [address] [id number] [place] [address]- 5353 Feb, [facility] [place] [facility] [address] [id number] [place] [address]- 9798 Feb, [facility] [place] [facility] [address] [id number] [place] [address]- 0308 Feb, [facility] [place] [facility] [address] [id number] [place] [address]- 7770 Feb, [facility] [place] [facility] [address] [id number] [place] [address]- 3992 Feb, [facility] [place] [facility] [address] [id number] [place] [address]- 6162 15 Feb, 2014 [facility] [place] [facility] [address] [id number] [place] [address]- 5832 15 Feb, 2014 [facility] [place] [facility] [address] [id number] [place] [address]- 2061 Feb, [facility] [place] [facility] [address] [id number] [place] [address]- 3973 Feb, [facility] [place] [facility] [address] [id number] [place] [address]- 9103 09 Feb, 2014 [facility] [place] [facility] [address] [id number] [place] [address]- 0443 Feb, [facility] [place] [facility] [address] [id number] [place] [address]- 9930 Feb, [facility] [place] [facility] [address] [id number] [place] 6430 Feb, [facility] [place] [facility] [address] [id number] [place] [address]- 2310 Feb, [facility] [place] [facility] [address] [id number] [place] 3061 Feb, [facility] [place] [facility] [address] [id number] [place] [address]- 5234 Jan, [facility] [place] [facility] [address] [id number] [place] [address]- 7863 Jan, [facility] [place] [facility] [address] [id number] [place] [address]- 8615 Jan, [facility] [place] [facility] [address] [id number] [place] [address]- 5897 Jan, [facility] [place] [facility] [address] [id number] [place] [address]- 2532 Jan, [facility] [place] [facility] [address] [id number] [place] [address]- 8987 Jan, [facility] [place] [facility] [address] [id number] [place] [address]- 1314 Jan, [facility] [place] [facility] [address] [id number] [place] [address]- 2401 Jan, [facility] [place] [facility] [address] [facility] [id number] [place] [address]- 4762 Jan, [facility] [place] [facility] [address] [id number] [place] [address]- 8077 Dec, [facility] [place] [facility] [address] [id number], [place] [address]- 1746 Dec, [facility] [place] [facility] [address] [id number], [place] [address]- 0543 Dec, [facility] [place] [facility] [address] [id number], [place] [address]- 9545 Dec, [facility] [place] [facility] [address] [facility] [id number]- 7666 Dec, [facility] [place] [facility] [address] [id number] [place] [address]- 9767 Dec, [facility] [place] [facility] [address] [id number] [place] [address]- 0651 Dec, [facility] [place] [facility] [address] [id number] [place] [address]- 6272 Dec, [facility] [place] [facility] [address] [id number] [place] [address]- 2479 Dec, [facility] [place] [facility] [address] [id number] [place] [address]- 4229 Dec, [facility] [place] [facility] [address] [id number] [place] [address]- 9676 30 Nov, 2013 [facility] [place] [facility] [address] [id number] [place] [address]- 7949 30 Nov, 2013 [facility] [place] [facility] [address] [id number] [place] [address]- 2739 12 Nov, 2013 [facility] [place] [facility] [address] [id number] [place] [address] 2545 12 Nov, 2013 [facility] [place] [facility] [address] [id number] [place] [address]- 2540 12 Nov, 2013 [facility] [place] [facility] [address] [id number] [place] [address] 2541 12 Nov, 2013 [facility] [place] [facility] [address] [id number] [place] [address]- 2543 11 Nov, 2013 [facility] [place] [facility] [address] [id number] [place] [address] 2545 11 Nov, 2013 [facility] [place] [facility] [address] [id number] [place] [address] 2541 02 Nov, 2013 [facility] [place] [facility] [address] [id number] [place] [address]- 2541 02 Nov, 2013 [facility] [place] [facility] [address] [id number] [place] [address]- 5937 Oct, [facility] [place] [facility] [address] [id number] [place] [address]- 9757 Oct, [facility] [place] [facility] [address] [id number] [place] [address]- 3704 Oct, [facility] [place] [facility] [address] [id number] [place] [address]- 7775 Oct, [facility] [place] [facility] [address] [id number] [place] [address]- 0611 Oct, [facility] [place] [facility] [address] [id number] [place] [address]- 8705 Oct, [facility] [place] [facility] [address] [id number] [place] [address]- 6930 Oct, [facility] [place] [facility] [address] [id number] [place] [address]- 5478 Oct, [facility] [place] [facility] [address] [id number] [place] [address]- 0707 Oct, [facility] [place] [facility] [address] [id number] [place] [address]- 5001 Oct, [facility] [place] [facility] [address] [id number] [place] [address]- 0966 Sep, [facility] [place] [facility] [address] [id number] [place] [address]- 0783 Sep, [facility] [place] [facility] [address] [id number], [place] [address]- 6031 Aug, [facility] [place] [facility] [address] [id number] [place] [address]- 5187 Aug, [facility] [place] [facility] [address] [id number] [place] [address]- 0210 Aug, [facility] [place] [facility] [address] [id number] [place] [address]- 8016 Aug, [facility] [place] [facility] [address] [id number] [place] [address]- 2785 Aug, [facility] [place] [facility] [address] [id number] [place] [address]- 9573 Aug, [facility] [place] [facility] [address] [id number] [place] [address]- 1642 Aug, [facility] [place] [facility] [address] [id number] [place] [address]- 2967 Aug, [facility] [place] [facility] [address] [id number] [place] [address]- 8294 Aug, [facility] [place] [facility] [address] [id number] [place] [address]- 8541 Aug, [facility] [place] [facility] [address] [id number] [place] [address]- 8967 Aug, [facility] [place] [facility] [address] [id number] [place] [address]- 5427 Aug, [facility] [place] [facility] [address] [id number] [place] [address]- 2966 July, [facility] [place] [facility] [address] [id number] [place] [address] July, [facility] [place] [facility] [address] [id number] [place] [address] July, [facility] [place] [facility] [address] [id number] [place] [address] July, [facility] [place] [facility] [address] [id number] [place] [address] July, [facility] [place] [facility] [address] [id number] [place] [address] July, [facility] [place] [facility] [address] [id number] [place] [address] July, [facility] [place] [facility] [address] [id number] [place] [address] July, [facility] [place] [facility] [address] [id number] [place] [address] Jun, [facility] [place] [facility] [address] [id number] [place] [address] Jun, [facility] [place] [facility] [address] [id number] [place] [address] May, [facility] [place] [facility] [address] [id number] [place] [address] May, [facility] [place] [facility] [address] [id number] [place] [address] May, [facility] [place] [facility] [address] [id number] [place] [address]- [address] May, [facility] [place] [facility] [address] [id number] [place] [address]- [address] May, [facility] [place] [facility] [address] [id number] [place] [address] May, [facility] [place] [facility] [address] [id number] [place] [address]- [address] May, [facility] [place] [facility] [address] [id number] [place] [address] May, [facility] [place] [facility] [address] [id number] [place] [address] Apr, [facility] [place] [facility] [address] [id number] [place] [address]- [address] Apr, [facility] [place] [facility] [address] [id number] [place] [address] Apr, [facility] [place] [facility] [address] [id number] [place] [address] Apr, [facility] [place] [facility] [address] [id number] [place] [address] Apr, [facility] [place] [facility] [address] [id number] [place] [address]- [address] Apr, [facility] [address] [id number] [place] [address] Apr, [facility] [place] [facility] [address] [id number] [place] [address] Apr, [facility] [place] [facility] [address] [id number] [place] [address] Mar, [facility] [place] [facility] [address] [id number] [place] [address] Mar, [facility] [place] [facility] [address] [id number] [place] [address] Mar, [facility] [place] [facility] [address] [id number] [place] [address] Mar, [facility] [place] [facility] [address] [id number] [place] [address] Mar, [facility] [place] [facility] [address] [id number] [place] [address] Mar, [facility] [place] [facility] [address] [id number] [place] [address] Mar, [facility] [place] [facility] [address] [id number] [place] [address] Mar, [facility] [place] [facility] [address] [id number] [place] [address] Mar, [facility] [place] [facility] [address] [id number] [place] [address] Mar, [facility] [place] [facility] [address] [id number] [place] [address] Feb, [facility] [place] [facility] [address] [id number] [place] [address] Feb, [facility] [place] [facility] [address] [id number] [place] [address] Feb, [facility] [place] [facility] [address] [id number] [place] [address] Feb, [facility] [place] [facility] [address] [id number] [place] [address]- [address] Jan, [facility] [place] [facility] [address] [id number] [place] [address] Jan, [facility] [place] [facility] [address] [id number] [place] [address] Dec, [facility] [place] [facility] [address] [id number] [place] [address] Dec, [facility] [place] [facility] [address] [id number] [place] [address] Dec, [facility] [place] [facility] [address] [id number] [place] [address]- [address] Dec, [facility] [place] [facility] [address] [id number] [place] [address] Dec, [facility] [place] [facility] [address] [id number] [place] [address]- [address] Dec, [facility] [place] [facility] [address] [id number] [place] [address] Dec, [facility] [place] [facility] [address] [id number] [place] [address] Dec, [facility] [place] [facility] [address] [id number], [place] [address] Dec, [facility] [place] [facility] [address] [id number] [place] [address]- [address] Dec, [facility] [place] [facility] [address] [id number] [place] [address] Dec, [facility] [place] [facility] [address] [id number], [place] [address] Dec, [facility] [place] [facility] [address] [id number] [address] Dec, [facility] [place] [facility] [address] [id number] [place] [address] Nov, [facility] [place] [facility] [address] [id number] [place] [address] Nov, [facility] [place] [facility] [address] [id number] [place] [address] Nov, [facility] [place] [facility] [address] [id number] [place] [address] Nov, [facility] [place] [facility] [address] [id number] [place] [address] Nov, [facility] [place] [facility] [address] [id number] [place] [address] Oct, [facility] [place] [facility] [address] [id number] [place] [address] Oct, [facility] [place] [facility] [address] [id number] [place] [address] Oct, [facility] [place] [facility] [address] [id number] [place] [address] Oct, [facility] [place] [facility] [address] [id number] [place] [address] Oct, [facility] [place] [facility] [address] [id number] [place] [address] Oct, [facility] [place] [facility] [address] [id number] [place] [address] Oct, [facility] [place] [facility] [address] [id number] [place] [address] Sep, [facility] [place] [facility] [address] [id number] [place] [address] Sep, [facility] [place] [facility] [address] [id number] [place] [address] Sep, [facility] [place] [facility] [address] [id number] [place] [address] Aug, [facility] [address] [id number] [place] [address] Aug, [facility] [address] [id number] [place] [address] Aug, [facility] [address] [id number] [place] [address] Aug, [facility] [address] [id number] [place] [address] July, [facility] [address] [id number] [place] [address] July, [facility] [address] [id number] [place] [address] July, [facility] [address] [id number] [place] [address] July, [facility] [address] [id number] [place] [address] Jun, [facility] [address] [id number] [place] [address] Jun, [facility] [address] [id number] [place] [address] May, [facility] [address] [id number] [place] [address] May, [facility] [address] [id number] [place] [address] 8[address] Apr, [facility] [address] [id number] [place] [address] Apr, [facility] [address] [id number] [place] [address] 17[address] Feb, [facility] [address] [id number] [place] [address] 8837 Feb, [facility] [place] [facility] [address] [id number] [place] [address]66 Feb, [facility] [place] [facility] [address] [id number] [place] [address]349 Feb, [facility] [place] [facility] [address] [id number] [place] [address] Feb, [facility] [place] [facility] [address] [id number] [place] [address] 9906 Feb, [facility] [place] [facility] [address] [id number] [place] [address] 6[address] Jan, [facility] [place] [facility] [address] [id number] [place] [address] 0159 Jan, [facility] [place] [facility] [address] [id number] [place] [address] Jan, [facility] [place] [facility] [address] [id number] [place] [address]- 7093 Jan, [facility] [place] [facility] [address] [id number] [place] [address] Jan, [facility] [place] [facility] [address] [id number] [place] [address] 0067 Jan, [facility] [place] [facility] [address] [id number], [place] [address] Jan, [facility] [place] [facility] [address] [id number], [place] [address] 15 Jan, 2012 [facility] [place] [facility] [address] [id number] [place] [address]- 8466 15 Jan, 2012 [facility] [place] [facility] [address] [id number], [place] [address] Jan, [facility] [place] [facility] [address] [id number] [place] [address]- 0[address] Jan, [facility] [place] [facility] [address] [id number] [place] [address]- 2546 Jan, [facility] [place] [facility] [address] [id number] [place] [address] 2546 Jan, [facility] [place] [facility] [address] [id number] [place] [address]- [address]646 Dec, [facility] [place] [facility] [address] [id number] [place] [address] 2546 Dec, [facility] [place] [facility] [address] [id number] [place] [address] 2548 Dec, [facility] [place] [facility] [address] [id number] [place] [address]- 1578 Dec, [facility] [place] [facility] [address] [id number] [place] [address]- 2546 Dec, [facility] [place] [facility] [address] [id number] [place] [address]- [address]122 Dec, [facility] [place] [facility] [address] [id number] [place] [address]- 2770 Dec, [facility] [place] [facility] [address] [id number] [place] [address]- 0106 Nov, [facility] [place] [facility] [address] [id number] [place] [address] 2540 Nov, [facility] [place] [facility] [address] [id number] [place] [address] 2546 Oct, [facility] [place] [facility] [address] [id number] [place] [address]- 2546 Oct, [facility] [place] [facility] [address] [id number] [place] [address] 4[address] Sep, [facility] [place] [facility] [address] [id number] [place] [address]- 2546 Sep, [facility] [place] [facility] [address] [id number] [place] [address] 2546 Sep, [facility] [place] [facility] [address] [id number] [place] [address]- 6062 Sep, [facility] [address] [id number] [place] [address]- 3495 July, [facility] [place] [facility] [address] [id number] [place] [address]- 4859 July, [facility] [place] [facility] [address] [id number] [place] [address]- 7130 July, [facility] [address] [id number] [place] [address]- 7[address] Jun, [facility] [place] [facility] [address] [id number] [place] [address]- 7004 Jun, [facility] [address] [id number] [place] [address]- 9[address] Jun, [facility] [address] [id number] [place] [address]- 7724 Jun, [facility] [address] [id number] [place] [address]- 0099 Jun, [facility] [place] [facility] [address] [id number] [place] [address]- 6136 Jun, [facility] [place] [facility] [address] [id number] [place] [address]- 8410 Jun, [facility] [place] [facility] [address] [id number] [place] [address]- 5220 Jun, [facility] [place] [facility] [address] [id number] [place] [address]- 0125 Jun, [facility] [place] [facility] [address] [id number] [place] [address]- 4287 May, [facility] [place] [facility] [address] [id number] [place] [address]- 4394 May, [facility] [place] [facility] [address] [id number] [place] [address]- 3766 May, [facility] [place] [facility] [address] [id number] [place] [address]- 5290 May, [facility] [place] [facility] [address] [id number] [place] [address]- 9236 May, [facility] [place] [facility] [address] [id number] [place] [address]- 5678 Apr, [facility] [place] [facility] [address] [id number] [place] [address]- 0499 Mar, [facility] [place] [facility] [address] [id number] [place] [address]- 0433 Mar, [facility] [place] [facility] [address] [id number] [place] [address]- 8666 Feb, [facility] [place] [facility] [address] [id number] [place] [address]- 7058 Feb, [facility] [place] [facility] [address] [id number] [place] [address]- 2615 Feb, [facility] [place] [facility] [address] [id number] [place] [address]- 8486 Jan, [facility] [place] [facility] [address] [id number] [place] [address]- 5214 Dec, [facility] [place] [facility] [address] [id number] [place] [address]- 4713 Dec, [facility] [place] [facility] [address] [id number] [place] [address] 2543 Dec, [facility] [place] [facility] [address] [id number] [place] [address]- 4786 July, [facility] [place] [facility] [address] [id number] [place] [address]- 3666 May, [facility] [place] [facility] [address] [id number] [place] [address]- 0973 Feb, [facility] [place] [facility] [address] [id number] [place] [address]- 2375 15 Feb, 2010 [facility] [address] [id number] [place] [address]- 9204 09 Feb, 2010 [facility] [address] [id number] [place] [address]- 1366 Jan, [facility] [address] [id number] [place] [address]- 4176 Dec, [facility] [address] [id number] [place] [address]- 3774 Dec, [facility] [address] [id number] [place] [address]- 0186 Oct, [facility] [address] [id number] [place] [address]- 6850 July, [facility] [address] [id number] [place] [address]- 2847 Apr, [facility] [address] [id number] [place] [address]- 1698 Mar, [facility] [address] [id number] [place] [address]- 6986 Feb, [facility] [address] [facility] [id number] [place] [address]- 8628 Feb, [facility] [address] [id number] [place] [address]- 5179 Feb, [facility] [address] [id number], [place] [address]- 6581 Feb, [facility] [place] [facility] [address] [id number] [place] [address]- 5306 Feb, [facility] [address] [id number] [place] [address]- 2546 Jan, [facility] [address] [id number] [place] [address]- 6800 Jan, [facility] [address] [facility] [id number] [place] [address]- 4912 Dec, [facility] [address] [facility] [id number] [place] [address]- 2546 Nov, IMMUNIZATIONS No Known Immunizations SOCIAL HISTORY Never Assessed REASON FOR VISIT orders added PLAN OF CARE VITAL SIGNS MEDICATIONS Unknown [...] knee replacement 2018 Hospitalization History [facility] Right knee surgery. discharged 01/27/17 Hospitalization History [facility]- Left knee replacement 06/16/2017
--- OUTSIDE RECORDS SUMMARY | 2018-02-11 11:04 | XMS REPORT ---
Author Author STORMHREBER Connors [facility] Address [address] [place] [address] Care Team Providers Care Planning Aide Name Role Phone HERBER STORM Unavailable PROBLEMS Type Condition ICD9-CM Code EEZ72-AZ Code Onset Dates Condition Status SNOMED Code Problem Arthritis M19.90 Active 6772227 Problem Allergic state, subsequent encounter T78.40XD Active 745417522 Problem Hypothyroidism (acquired) E03.9 Active 709384508 Problem Mild intermittent asthma with exacerbation J45.21 Active 147522076 Problem COPD with exacerbation J44.1 Active 855295825 Problem Obstructive sleep apnea (adult) (pediatric) G47.33 Active 62385497 Problem Dependence on other enabling machines and devices Z99.89 Active 484848317 Problem Body mass index (BMI) of 45.0-49.9 in adult Z68.42 Active 902882920 Problem Morbid (severe) obesity due to excess calories E66.01 Active 294454484 ALLERGIES No Information ENCOUNTERS Encounter Location Date Diagnosis [facility] [id number] [place] [address] 96470- 1660 Oct, Prediabetes R73.03 [facility] [id number] [place] [address] 56403- 3115 Oct, Essential hypertension I10 and Hypothyroidism (acquired) E03.9 [facility] [id number] [address] Oct, [facility] [id number] [place] [address] 79070- 6798 Oct, [facility] [id number] [place] [address] 31811- 7518 Oct, Essential hypertension I10 ; Hypothyroidism (acquired) [...] and Obstructive sleep apnea (adult) (pediatric) G47.33 [facility] [id number] [place] [address] 79380 -2229 Sep, Mild intermittent asthma with exacerbation J45.21 [facility] [id number] [place] [address] 86820- 2179 Sep, [facility] [id number] [place] [address] 16975- 6985 Sep, Long-term use of high-risk medication Z79.899 [facility] [id number] [place] [address] 23387- 1945 Sep, Long-term use of high-risk medication Z79.899 [facility] [id number] [place] [address] 60762- 9652 July, [facility] [id number] [place] [address] 87933- 1744 Jun, [facility] [address] [address] 3157 May, Asthma J45.909 [facility] [id number] [place] [address] 38832- 5474 May, [facility] [id number] [place] [address] 66822- 9766 27 Apr, 2017 Pre-op evaluation Z01.818 ; Allergic state, subsequent encounter T78.40XD and BMI 45.0-49.9, adult Z68.42 [facility] [address] [address] 6882 Mar, [facility] [id number] [place] [address] 86807- 8214 Mar, [facility] [address] [address]78 -8947 Mar, Cough R05 ; Acute nasopharyngitis J00 and BMI 45.0-49.9, adult Z68.42 [facility] [address] 78602- 7192 Mar, [facility] [address] 03449- 0728 Jan, Ganglion cyst of finger of right hand M67.441 [place] [address] 32976- 2314 Dec, [place] [address] 69363- 6248 Dec, Change in vision H53.9 ; Arthritis M19.90 ; Essential hypertension I10 ; GERD with esophagitis K21.0 ; Hypothyroidism (acquired) E03.9 and Ganglion cyst of joint of finger of left hand M67.442 [place] [address] 54752- 7300 15 Nov, 2016 Encounter for immunization Z23 [place] [address] 01825- 7731 07 Nov, 2016 [place] [address] 98532- 4800 Sep, [place] [address] 54581- 4802 Aug, [place] [address] 36252- 1954 July, Cyst of joint of right hand M25.841 [place] [address] 27745- 5024 May, [place] [address] 80551- 1584 May, Fever, unspecified R50.9 and Influenza A J10.1 [place] [id number] [place] [address] 58934- 4984 May, Left shoulder pain, unspecified chronicity M25.512 [place] [address] 37277- 6871 Apr, [place] [address] 29223- 0003 Apr, Infraspinatus tendon tear, left, subsequent encounter S46.812D and Supraspinatus tendon tear, left, subsequent encounter S46.812D [place] [id number] [place] [address] 51316- 8949 Apr, [place] [address] 49270- 6622 Mar, Left shoulder pain, unspecified chronicity M25.512 [place] [id number] [place] [address] 42151- 4519 Mar, [place] [address] 57871- 0996 Mar, Left shoulder pain, unspecified chronicity M25.512 [place] [id number] [place] [address] 69012- 8807 Feb, Chronic superficial gastritis without bleeding K29.30 ; Left upper quadrant pain R10.12 ; Essential hypertension I10 ; Dyspnea on exertion R06.09 and Palpitations R00.2 [place] [id number] [place] [address] 22037- 0567 Jan, Colon polyps K63.5 [place] [address] 75057- 6183 Jan, Colon polyps K63.5 [place] [id number] [place] [address] 56202- 2782 Dec, [facility] [id number] [place] [address] 86353 -4282 Dec, GERD with esophagitis K21.0 [facility] [id number] [place] [address] 01788- 6443 Nov, Arthritis pain M19.90 ; Colon polyps K63.5 ; Seasonal allergic rhinitis due to pollen J30.1 and Encounter for immunization Z23 [facility] [address] 34557- 5866 Nov, [facility] [id number] [place] [address] 37916- 4127 Oct, [facility] [address] 27386- 0421 Sep, [facility] [id number] [place] [address] 60752- 3911 July, [facility] [id number] [place] [address] 58289- 5155 July, [facility] [id number] [place] [address] 89525- 4667 July, Asthma with acute exacerbation J45.901 and Bronchitis J40 [facility] [id number] [place] [address] 14623- 1843 Jun, [facility] [id number] [place] [address] 42662- 4679 May, Other specified hypothyroidism E03.8 and 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 [facility] [id number] [place] [address] 60867- 6045 Apr, [facility] [id number] [place] [address] 56176- 6042 Apr, Sacroiliac joint pain M53.3 [facility] [id number] [place] [address] 45642- 4916 Mar, Other specified hypothyroidism E03.8 ; Restless legs syndrome G25.81 ; Asthma with acute exacerbation J45.901 and Bronchitis J40 [facility] [id number] [place] [address] 65269 -9678 Feb, Upper respiratory symptom R09.89 [facility] [id number] [place] [address] 75623- 1651 08 Feb, 2015 Restless leg G25.81 and Asthma J45.909 [facility] [id number] [place] [address] 96557- 9948 08 Dec, 2014 Rupture of tendon of right shoulder S46.911A [place] [address] 35563- 0267 05 Dec, 2014 Sacroiliac joint pain M53.3 [place] [id number] [place] [address] 69012- 7400 30 Nov, 2014 [place] [address] 29819- 9405 28 Nov, 2014 Lumbago of lumbosacaral region with sciatica 724.2 and Sacroiliitis 720.2 [place] [id number] [place] [address] 90322- 9601 22 Nov, 2014 Influenza vaccine administered V04.81 [place] [id number] [place] [address] 01759- 4567 Nov, [place] [id number] [place] [address] 95459- 2672 Nov, [place] [id number] [place] [address] 74827- 3221 18 Nov, 2014 Thyroid function test abnormal 794.5 and Thyroid antibody positive 795.79 [place] [id number] [place] [address] 02901- 4505 16 Nov, 2014 Hypothyroidism 244.9 ; Thyroid antibody positive 795.79 and Right shoulder pain 719.41 [place] [id number] [address]- 6191 Oct, [facility] [id number] [place] [address] 23473- 6997 18 Oct, 2014 Thyroid function test abnormal 794.5 [facility] [id number] [place] [address] 79962- 9131 14 Oct, 2014 Hypertension 401.9 and Bilateral leg pain 729.5 [facility] [id number] [place] [address] 86234- 8733 Oct, [facility] [id number] [place] [address] 77421- 1801 Oct, Bilateral leg pain 729.5 and Hypertension 401.9 [facility] [id number] [place] [address] 64005- 2252 Sep, Bilateral leg pain 729.5 ; Hypertension 401.9 and Edema 782.3 [facility] [id number] [place] [address] 58575- 5700 Aug, Unspecified hereditary and idiopathic peripheral neuropathy 356.9 and Arthritis 716.90 [facility] [id number] [place] [address] 19847- 2098 Aug, [facility] [id number] [place] [address] 66518- 9107 July, [facility] [id number] [place] [address] 13121- 9933 30 Jun, 2014 [facility] [id number] [place] [address] 22347- 9856 Jun, [facility] [id number] [place] [address] 16549- 2731 Jun, [facility] [id number] [place] [address] 81674- 1926 May, [facility] [id number] [place] [address] 93186- 1828 May, [facility] [place] [facility] [address] [id number] [place] [address]- 7057 May, [facility] [place] [facility] [address] [id number] [place] [address]- 6578 May, [facility] [place] [facility] [address] [id number] [place] [address]- 2217 May, [facility] [place] [facility] [address] [id number] [place] [address]- 9473 16 May, 2014 [facility] [place] [facility] [address] [id number] [place] [address]- 5420 May, [facility] [place] [facility] [address] [id number] [place] [address]- 6337 May, [facility] [place] [facility] [address] [id number] [place] [address]- 3999 May, [facility] [place] [facility] [address] [id number] [place] [address]- 8735 May, [facility] [place] [facility] [address] [id number] [place] [address]- 4858 May, [facility] [place] [facility] [address] [id number] [place] [address]- 3853 Apr, 2014 [facility] [place] [facility] [address] [id number] [place] [address]- 3188 Apr, 2014 [facility] [place] [facility] [address] [id number] [address]- 6183 Apr, 2014 [facility] [place] [facility] [address] [id number] [place] [address]- 3582 Apr, 2014 [facility] [place] [facility] [address] [id number] [place] [address]- 0491 Apr, 2014 [facility] [place] [facility] [address] [id number] [place] [address]- 5458 Apr, 2014 [facility] [place] [facility] [address] [id number] [place] [address]- 3547 Apr, [facility] [address] [id number] [place] [address]- 7799 Apr, [facility] [address] [id number] [place] [address]- 9828 Mar, [facility] [address] [id number] [place] [address]- 0252 Mar, [facility] [address] [id number] [place] [address]- 9612 Mar, [facility] [address] [id number] [place] [address]- 6476 Mar, [facility] [address] [id number] [place] [address]- 2174 Mar, [facility] [address] [id number] [place] [address]- 6674 Mar, [facility] [address] [id number] [place] [address]- 2086 Feb, [facility] [address] [id number] [place] [address]- 9874 Feb, [facility] [address] [id number] [place] [address]- 0947 Feb, [facility] [place] [facility] [address] [id number] [place] [address]- 1299 Feb, [facility] [address] [id number] [place] [address]- 2544 Feb, [facility] [place] [facility] [address] [id number] [place] [address]- 0231 Feb, [facility] [place] [facility] [address] [id number] [place] [address]- 8726 Feb, [facility] [place] [facility] [address] [id number] [place] [address]- 4088 Feb, [facility] [place] [facility] [address] [id number] [place] [address]- 5096 Feb, [facility] [place] [facility] [address] [id number] [place] [address]- 6810 Feb, [facility] [place] [facility] [address] [id number] [place] [address]- 6038 Feb, [facility] [place] [facility] [address] [id number] [place] [address]- 0237 Feb, [facility] [place] [facility] [address] [id number] [place] [address]- 0700 Feb, [facility] [place] [facility] [address] [id number] [place] [address]- 9422 Feb, [facility] [place] [facility] [address] [id number] [place] [address]- 5129 Feb, [facility] [place] [facility] [address] [id number] [place] [address]- 2634 Feb, [facility] [place] [facility] [address] [id number] [place] [address]- 5194 Feb, [facility] [place] [facility] [address] [id number] [place] [address]- 2357 Feb, [facility] [place] [facility] [address] [id number] [place] [address]- 0407 Feb, [facility] [place] [facility] [address] [id number] [place] [address]- 5966 Feb, [facility] [place] [facility] [address] [id number] [place] [address]- 1448 Feb, [facility] [place] [facility] [address] [id number] [place] [address]- 1292 Feb, [facility] [place] [facility] [address] [id number] [place] [address]- 0265 Feb, [facility] [place] [facility] [address] [id number] [place] [address]- 0078 Jan, [facility] [place] [facility] [address] [id number] [place] [address]- 6605 Jan, [facility] [place] [facility] [address] [id number] [place] [address]- 6424 Jan, [facility] [place] [facility] [address] [id number] [place] [address]- 2899 Jan, [facility] [place] [facility] [address] [id number] [place] [address]- 0494 Jan, [facility] [place] [facility] [address] [id number] [place] [address]- 3250 Jan, [facility] [place] [facility] [address] [id number] [place] [address]- 5521 Jan, [facility] [place] [facility] [address] [id number] [place] [address]- 3284 Jan, [facility] [place] [facility] [address] [id number] [place] [address]- 3782 Jan, [facility] [place] [facility] [address] [id number] [place] [address]- 7792 Dec, [facility] [place] [facility] [address] [id number] [place] [address]- 9880 Dec, [facility] [place] [facility] [address] [id number] [place] [address]- 7641 Dec, [facility] [place] [facility] [address] [id number], [place] [address]- 9156 Dec, [facility] [place] [facility] [address] [id number], [place] [address]- 5512 Dec, [facility] [place] [facility] [address] [id number], [place] [address]- 1331 Dec, [facility] [place] [facility] [address] [id number] 2931 Dec, [facility] [place] [facility] [address] [id number] [place] [address]- 2028 Dec, [facility] [place] [facility] [address] [id number] [place] [address]- 0046 Dec, [facility] [place] [facility] [address] [id number] [place] [address]- 6750 Dec, [facility] [place] [facility] [address] [id number] [place] [address]- 5511 Nov, [facility] [place] [facility] [address] [id number] [place] [address] 2545 30 Nov, 2013 [facility] [place] [facility] [address] [id number] [place] [address]- 3996 Nov, [facility] [place] [facility] [address] [id number] [place] [address]- 7838 Nov, [facility] [place] [facility] [address] [id number] [place] [address]- 2516 Nov, [facility] [place] [facility] [address] [id number] [place] [address]- 2989 Nov, [facility] [place] [facility] [address] [id number] [place] [address]- 4591 Nov, [facility] [place] [facility] [address] [id number] [place] [address]- 3358 Nov, [facility] [place] [facility] [address] [id number] [place] [address]- 4845 Nov, [facility] [place] [facility] [address] [id number] [place] [address] 2549 Nov, [facility] [place] [facility] [address] [id number] [place] [address]- 4874 Oct, [facility] [place] [facility] [address] [id number] [place] [address]- 4307 Oct, [facility] [place] [facility] [address] [id number] [place] [address]- 9503 Oct, [facility] [place] [facility] [address] [id number] [place] [address]- 8871 Oct, [facility] [place] [facility] [address] [id number] [place] [address]- 2038 Oct, [facility] [place] [facility] [address] [id number] [place] [address]- 2521 Oct, [facility] [place] [facility] [address] [id number] [place] [address]- 2053 Oct, [facility] [place] [facility] [address] [id number] [place] [address]- 4853 Oct, [facility] [place] [facility] [address] [id number] [place] [address]- 5384 Oct, [facility] [place] [facility] [address] [id number] [place] [address]- 7726 Oct, [facility] [place] [facility] [address] [id number] [place] [address]- 6233 Sep, [facility] [place] [facility] [address] [id number] [place] [address]- 8779 Sep, [facility] [place] [facility] [address] [id number] [place] [address]- 4815 Aug, [facility] [place] [facility] [address] [id number] [place] [address]- 9126 Aug, [facility] [place] [facility] [address] [id number] [place] [address]- 3609 Aug, [facility] [place] [facility] [address] [id number] [place] [address]- 7701 Aug, [facility] [place] [facility] [address] [id number] [place] [address]- 3440 Aug, [facility] [place] [facility] [address] [id number] [place] [address]- 9840 Aug, [facility] [place] [facility] [address] [id number] [place] [address]- 0426 Aug, [facility] [place] [facility] [address] [id number] [place] [address]- 4257 Aug, [facility] [place] [facility] [address] [id number] [place] [address]- 8517 Aug, [facility] [place] [facility] [address] [id number] [place] [address]- 9604 Aug, [facility] [place] [facility] [address] [id number] [place] [address]- 4338 Aug, [facility] [place] [facility] [address] [id number] [place] [address]- 5529 Aug, [facility] [place] [facility] [address] [id number] [place] [address]- 2230 July, [facility] [place] [facility] [address] [id number] [place] [address]- 1592 July, [facility] [place] [facility] [address] [id number] [place] [address] July, [facility] [place] [facility] [address] [id number] [place] [address] July, [facility] [place] [facility] [address] [id number] [place] [address] July, [facility] [place] [facility] [address] [id number] [place] [address] July, [facility] [place] [facility] [address] [id number] [place] [address] July, [facility] [place] [facility] [address] [id number] [place] [address] July, [facility] [place] [facility] [address] [id number] [place] [address] Jun, [facility] [place] [facility] [address] [id number] [place] [address] Jun, [facility] [place] [facility] [address] [id number] [place] [address] 27 May, 2013 [facility] [place] [facility] [address] [id number] [place] [address] 27 May, 2013 [facility] [place] [facility] [address] [id number] [place] [address] 27 May, 2013 [facility] [place] [facility] [address] [id number] [place] [address] May, [facility] [place] [facility] [address] [id number] [place] [address] May, [facility] [place] [facility] [address] [id number] [place] [address] May, [facility] [place] [facility] [address] [id number] [place] [address] May, [facility] [place] [facility] [address] [id number] [place] [address] May, [facility] [place] [facility] [address] [id number] [place] [address] Apr, [facility] [place] [facility] [address] [id number] [place] [address] Apr, [facility] [place] [facility] [address] [id number] [place] [address] Apr, [facility] [place] [facility] [address] [id number] [place] [address] Apr, [facility] [place] [facility] [address] [id number] [place] [address] Apr, [facility] [place] [facility] [address] [id number] [place] [address] Apr, [facility] [place] [facility] [address] [id number] [place] [address] Apr, [facility] [place] [facility] [address] [id number] [place] [address] Apr, [facility] [address] [id number] [place] [address] Mar, [facility] [place] [facility] [address] [id number] [place] [address] Mar, [facility] [address] [id number] [place] [address] Mar, [facility] [place] [facility] [address] [id number] [place] [address] Mar, [facility] [address] [id number] [place] [address] Mar, [facility] [place] [facility] [address] [id number] [place] [address] Mar, [facility] [address] [id number] [place] [address] Mar, [facility] [address] [id number] [place] [address] Mar, [facility] [place] [facility] [address] [id number] [place] [address] Mar, [facility] [address] [id number] [place] [address] Mar, [facility] [address] [id number] [place] [address] Feb, [facility] [place] [facility] [address] [id number] [place] [address] Feb, [facility] [place] [facility] [address] [id number] [place] [address] Feb, [facility] [place] [facility] [address] [id number] [place] [address] Feb, [facility] [place] [facility] [address] [id number] [place] [address] Jan, [facility] [place] [facility] [address] [id number] [place] [address] Jan, [facility] [place] [facility] [address] [id number] [place] [address] Dec, [facility] [place] [facility] [address] [id number] [place] [address] Dec, [facility] [place] [facility] [address] [id number] [place] [address] Dec, [facility] [place] [facility] [address] [id number] [place] [address] Dec, [facility] [place] [facility] [address] [id number] [place] [address] Dec, [facility] [place] [facility] [address] [id number] [place] [address] Dec, [facility] [place] [facility] [address] [id number] [place] [address] Dec, [facility] [place] [facility] [address] [id number] [place] [address] Dec, [facility] [facility] [address] [id number] [place] [address] Dec, [facility] [place] [facility] [address] [id number] [place] [address] Dec, [facility] [place] [facility] [address] [id number] [address] Dec, [facility] [place] [facility] [address] [id number] [place] [address] Dec, [facility] [place] [facility] [address] [id number] [place] [address] Dec, [facility] [place] [facility] [address] [id number], [place] [address] Nov, [facility] [place] [facility] [address] [id number], [place] [address] Nov, [facility] [place] [facility] [address] [id number] [place] [address] Nov, [facility] [place] [facility] [address] [id number] [place] [address] Nov, [facility] [place] [facility] [address] [id number] [place] [address] Nov, [facility] [place] [facility] [address] [id number] [place] [address] Oct, [facility] [facility] [address] [id number] [place] [address] Oct, [facility] [place] [facility] [address] [id number] [place] [address] Oct, [facility] [place] [facility] [address] [id number] [place] [address]65 Oct, [facility] [place] [facility] [address] [id number] [place] [address] Oct, [facility] [place] [facility] [address] [id number] [place] [address] 67[address] Oct, [facility] [facility] [address] [id number] [place] [address] 9410 Oct, [facility] [address] [id number] [place] [address]- 4[address] Sep, [facility] [place] [facility] [address] [id number] [place] [address] 42[address] Sep, [facility] [place] [facility] [address] [id number] [place] [address]- 5920 Sep, [facility] [address] [id number] [place] [address] Aug, [facility] [address] [id number] [place] [address] 8[address] Aug, [facility] [facility] [address] [id number] [place] [address]- 2546 Aug, [facility] [address] [id number] [place] [address] 1636 Aug, [facility] [address] [id number] [place] [address] 2546 July, [facility] [address] [id number] [place] [address]- 6656 July, [facility] [address] [id number] [place] [address]- [address] July, [facility] [address] [id number] [place] [address] 405[address] July, [facility] [address] [id number] [place] [address] 72[address] Jun, [facility] [address] [id number] [place] [address]176 Jun, [facility] [address] [id number] [place] [address] 8461 May, [facility] [address] [id number] [place] [address]- 2566 May, [facility] [address] [id number] [place] [address]- 7826 Apr, [facility] [address] [id number] [place] [address] 2546 Apr, [facility] [address] [id number] [place] [address] 2460 Feb, [facility] [address] [id number] [place] [address] 9826 Feb, [facility] [address] [id number] [place] [address]- 2546 Feb, [facility] [address] [id number] [place] [address] 3299 Feb, [facility] [place] [facility] [address] [id number] [place] [address] 2295 Feb, [facility] [address] [id number] [place] [address]- 4[address] Feb, [facility] [address] [id number] [place] [address]- 5995 Jan, [facility] [address] [id number] [place] [address]- 269[address] Jan, [facility] [address] [id number] [place] [address]- 4943 Jan, [facility] [address] [id number] [place] [address]- 1498 Jan, [facility] [address] [id number] [place] [address]- 7[address] Jan, [facility] [address] [id number] [place] [address]- 6199 Jan, [facility] [address] [id number] [place] [address]- 9204 Jan, [facility] [address] [id number] [place] [address]- 2123 Jan, [facility] [address] [id number], [place] [address] Jan, [facility] [address] [id number][place] [address]208 Jan, [facility] [address] [id number] [place] [address]- 8496 Jan, [facility] [address] [id number], [place] [address] 47[address] Jan, [facility] [address] [id number] [place] [address]- 3183 Jan, [facility] [address] [id number] [place] [address]- 9430 Dec, [facility] [address] [id number] [place] [address]- 2214 Dec, [facility] [address] [id number] [place] [address]- 6220 Dec, [facility] [address] [id number] [place] [address]- 6216 Dec, [facility] [address] [id number] [place] [address]- 7294 Dec, [facility] [address] [id number] [place] [address]- 1297 Dec, [facility] [address] [id number] [place] [address]- 2175 Dec, [facility] [address] [id number] [place] [address]- 0169 Nov, [facility] [address] [id number] [place] [address]- 0456 Nov, [facility] [address] [id number] [place] [address]- 1784 Oct, [facility] [address] [id number] [place] [address]- 6925 Oct, [facility] [address] [id number] [place] [address]- 1475 Sep, [facility] [address] [id number] [place] [address]- 2540 Sep, [facility] [address] [id number] [place] [address]- 9793 Sep, [facility] [address] [id number] [place] [address]- 2543 Sep, [facility] [address] [id number] [place] [address]- 8707 July, [facility] [address] [id number] [place] [address]- 8519 July, [facility] [address] [id number] [place] [address]- 4536 July, [facility] [address] [id number] [place] [address]- 0555 Jun, [facility] [address] [id number] [place] [address]- 7339 Jun, [facility] [address] [id number] [place] [address]- [address] Jun, [facility] [address] [id number] [place] [address]- 8697 16 Jun, 2011 [facility] [address] [id number] [place] [address]- 9657 Jun, [facility] [address] [id number] [place] [address]- 6197 Jun, [facility] [address] [id number] [place] [address]- 4563 Jun, [facility] [address] [id number] [place] [address]- 2231 Jun, [facility] [address] [id number] [place] [address]- 7830 Jun, [facility] [address] [id number] [place] [address]- 1355 May, [facility] [address] [id number] [place] [address]- 9161 May, [facility] [address] [id number] [place] [address]- 2730 May, [facility] [address] [id number] [place] [address]- 8497 May, [facility] [address] [id number] [place] [address]- 1198 May, [facility] [address] [id number] [place] [address]- 6765 Apr, [facility] [address] [id number] [place] [address]- 9296 Mar, [facility] [address] [id number] [place] [address] 2546 Mar, [facility] [address] [id number] [place] [address]- 9807 Feb, [facility] [address] [id number] [place] [address]- 1152 Feb, [facility] [address] [id number] [place] [address]- 4246 Feb, [facility] [address] [id number] [place] [address]- 1451 Jan, [facility] [address] [id number] [place] [address]- 0327 Dec, [facility] [address] [id number] [place] [address]- 8770 Dec, [facility] [address] [id number] [place] [address]- 5459 Dec, [facility] [address] [id number] [place] [address]- 1644 July, [facility] [address] [id number] [place] [address] 2541 May, [facility] [address] [id number] [place] [address]- 7062 Feb, [facility] [address] [id number] [place] [address]- 2658 Feb, [facility] [address] [id number] [place] [address] 2546 Feb, [facility] [address] [id number] [place] [address]- 6366 12 Jan, 2010 [facility] [address] [id number] [place] [address]- 5786 26 Dec, 2009 [facility] [address] [id number] [place] [address]- 9876 13 Dec, 2009 [facility] [address] [id number] [place] [address]- 5796 Oct, [facility] [address] [id number] [place] [address]- 7273 July, [facility] [address] [id number] [place] [id number], [place] [address]- 5187 18 Apr, 2009 [facility] [address] [facility] [id number] [place] [address]- 8666 Mar, [facility] [address] [facility] [id number] [place] [address]- 2882 Feb, [facility] [address] [id number] [place] [address] Feb, [facility] [address] [facility] [id number] [place] [address]- 3547 Feb, [facility] [address] [facility] [id number] [place] [address]- 1736 Feb, [facility] [address] [facility] [id number] [place] [address]- 2547 Feb, [facility] [address] [id number], [place] [address] 2543 Jan, [facility] [address] [facility] [id number] [place] [address]- 1476 Jan, [facility] [address] [facility] [id number] [place] [address] 2546 20 Dec, 2008 [facility] [address] [facility] [id number] [place] [address] 2545 14 Nov, 2008 IMMUNIZATIONS No Known Immunizations SOCIAL HISTORY Never Assessed REASON FOR VISIT Lab (walk-in) PLAN OF CARE VITAL SIGNS MEDICATIONS Unknown Medications RESULTS No Results PROCEDURES Procedure Date Ordered Result Body Site LAB NOT BILLED BY [facility] Oct 29, 2017 FELISHA, ROUTINE* Oct 29, 2017 INSTRUCTIONS MEDICATIONS ADMINISTERED No Known Medications [...] History left knee replacement 2018 Hospitalization History [facility]- Right knee surgery. discharged 01/27/17 Hospitalization History [facility]- Left knee replacement 06/16/2017
--- OUTSIDE RECORDS SUMMARY | 2018-02-11 11:04 | XMS REPORT ---
Author Author STORMHERBER [facility] Address [address] [place] [address] Care Team Providers Care Director Of Culture Name Role Phone HERBER STORM Unavailable PROBLEMS Type Condition ICD9-CM Code [id number] Code Onset Dates Condition Status SNOMED Code Problem Arthritis M19.90 Active 7035639 Problem Allergic state, subsequent encounter T78.40XD Active 255392827 Problem Hypothyroidism (acquired) E03.9 Active 946619481 Problem Mild intermittent asthma with exacerbation J45.21 Active 745336857 Problem COPD with exacerbation J44.1 Active 124745630 Problem Obstructive sleep apnea (adult) (pediatric) G47.33 Active 29969243 Problem Dependence on other enabling machines and devices Z99.89 Active 210780811 Problem Body mass index (BMI) of 45.0-49.9 in adult Z68.42 Active 335753177 Problem Morbid (severe) obesity due to excess calories E66.01 Active 179373050 ALLERGIES No Information ENCOUNTERS Encounter Location Date Diagnosis [facility] [id number] [place] [address] 55229- 5670 Oct, Prediabetes R73.03 [facility] [id number] [place] [address] 38280- 5045 Oct, Essential hypertension I10 and Hypothyroidism (acquired) E03.9 [facility] [address] [address] 4[address] Oct, [facility] [id number] [place] [address] 32874- 4595 Oct, [facility] [id number] [place] [address] 24472- 6982 Oct, Essential hypertension I10 ; Hypothyroidism (acquired) [...] and Obstructive sleep apnea (adult) (pediatric) G47.33 [facility] [id number] [place] [address] 13118 -7043 Sep, Mild intermittent asthma with exacerbation J45.21 [facility] [id number] [place] [address] 20205- 2317 Sep, [facility] [id number] [place] [address] 84981- 0395 Sep, Long-term use of high-risk medication Z79.899 [facility] [id number] [place] [address] 49469- 5780 Sep, Long-term use of high-risk medication Z79.899 [facility] [id number] [place] [address] 19667- 7763 July, [facility] [id number] [place] [address] 20651- 6023 Jun, [facility] [address] [address] 2987 May, Asthma J45.909 [facility] [id number] [place] [address] 49365- 7629 May, [facility] [id number] [place] [address] 73668- 7929 27 Apr, 2017 Pre-op evaluation Z01.818 ; Allergic state, subsequent encounter T78.40XD and BMI 45.0-49.9, adult Z68.42 [facility] [address] [address] 8076 Mar, [facility] [id number] [place] [address] 59909- 6860 Mar, [facility] [address] 27171 -1656 Mar, Cough R05 ; Acute nasopharyngitis J00 and BMI 45.0-49.9, adult Z68.42 [facility] [address] 08099- 4130 Mar, [facility] [address] 97504- 3124 Jan, Ganglion cyst of finger of right hand M67.441 [place] [address] 84624- 8667 Dec, [place] [address] 10365- 1411 Dec, Change in vision H53.9 ; Arthritis M19.90 ; Essential hypertension I10 ; GERD with esophagitis K21.0 ; Hypothyroidism (acquired) E03.9 and Ganglion cyst of joint of finger of left hand M67.442 [place] [address] 06997- 7838 15 Nov, 2016 Encounter for immunization Z23 [place] [address] 54193- 9426 07 Nov, 2016 [place] [address] 13201- 7481 Sep, [place] [address] 63453- 2948 Aug, [place] [address] 73435- 6400 July, Cyst of joint of right hand M25.841 [place] [address] 75348- 4062 May, [place] [address] 19879- 8070 May, Fever, unspecified R50.9 and Influenza A J10.1 [place] [id number] [place] [address] 89208- 0140 May, Left shoulder pain, unspecified chronicity M25.512 [place] [address] 29749- 1599 Apr, [place] [address] 68374- 6948 Apr, Infraspinatus tendon tear, left, subsequent encounter S46.812D and Supraspinatus tendon tear, left, subsequent encounter S46.812D [place] [id number] [place] [address] 54168- 6671 Apr, [place] [address] 75106- 6034 Mar, Left shoulder pain, unspecified chronicity M25.512 [place] [id number] [place] [address] 88300- 5834 Mar, [place] [address] 80397- 2097 Mar, Left shoulder pain, unspecified chronicity M25.512 [place] [id number] [place] [address] 83686- 0606 Feb, Chronic superficial gastritis without bleeding K29.30 ; Left upper quadrant pain R10.12 ; Essential hypertension I10 ; Dyspnea on exertion R06.09 and Palpitations R00.2 [place] [id number] [place] [address] 90189- 4162 Jan, Colon polyps K63.5 [place] [address] 83975- 2474 Jan, Colon polyps K63.5 [place] [id number] [place] [address] 90885- 1120 Dec, [facility] [id number] [place] [address] 72637 -6403 Dec, GERD with esophagitis K21.0 [facility] [id number] [place] [address] 64877- 9100 Nov, Arthritis pain M19.90 ; Colon polyps K63.5 ; Seasonal allergic rhinitis due to pollen J30.1 and Encounter for immunization Z23 [facility] [address] 55612- 1525 Nov, [facility] [id number] [place] [address] 22616- 8224 Oct, [facility] [address] 69509- 3242 Sep, [facility] [id number] [place] [address] 90935- 0594 July, [facility] [id number] [place] [address] 23274- 9196 July, [facility] [id number] [place] [address] 32301- 9440 July, Asthma with acute exacerbation J45.901 and Bronchitis J40 [facility] [id number] [place] [address] 18804- 2107 Jun, [facility] [id number] [place] [address] 04014- 7064 May, Other specified hypothyroidism E03.8 and 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 [facility] [id number] [place] [address] 90736- 5380 Apr, [facility] [id number] [place] [address] 80064- 2672 Apr, Sacroiliac joint pain M53.3 [facility] [id number] [place] [address] 31640- 7949 Mar, Other specified hypothyroidism E03.8 ; Restless legs syndrome G25.81 ; Asthma with acute exacerbation J45.901 and Bronchitis J40 [facility] [id number] [place] [address] 31053 -5989 Feb, Upper respiratory symptom R09.89 [facility] [id number] [place] [address] 22220- 6650 08 Feb, 2015 Restless leg G25.81 and Asthma J45.909 [facility] [id number] [place] [address] 98910- 2791 08 Dec, 2014 Rupture of tendon of right shoulder S46.911A [place] [address] 47114- 4339 05 Dec, 2014 Sacroiliac joint pain M53.3 [place] [id number] [place] [address] 28961- 9317 30 Nov, 2014 [place] [address] 24765- 7324 28 Nov, 2014 Lumbago of lumbosacaral region with sciatica 724.2 and Sacroiliitis 720.2 [place] [id number] [place] [address] 12344- 1806 22 Nov, 2014 Influenza vaccine administered V04.81 [place] [id number] [place] [address] 67727- 2974 Nov, [place] [id number] [place] [address] 59057- 7944 Nov, [place] [id number] [place] [address] 05038- 2258 18 Nov, 2014 Thyroid function test abnormal 794.5 and Thyroid antibody positive 795.79 [place] [id number] [place] [address] 38109- 6084 16 Nov, 2014 Hypothyroidism 244.9 ; Thyroid antibody positive 795.79 and Right shoulder pain 719.41 [place] [id number] [address]- 2782 Oct, [facility] [id number] [place] [address] 44153- 3325 18 Oct, 2014 Thyroid function test abnormal 794.5 [facility] [id number] [place] [address] 95139- 8545 14 Oct, 2014 Hypertension 401.9 and Bilateral leg pain 729.5 [facility] [id number] [place] [address] 78869- 4589 Oct, [facility] [id number] [place] [address] 02921- 3033 Oct, Bilateral leg pain 729.5 and Hypertension 401.9 [facility] [id number] [place] [address] 16307- 8591 Sep, Bilateral leg pain 729.5 ; Hypertension 401.9 and Edema 782.3 [facility] [id number] [place] [address] 00751- 9681 Aug, Unspecified hereditary and idiopathic peripheral neuropathy 356.9 and Arthritis 716.90 [facility] [id number] [place] [address] 77954- 1077 Aug, [facility] [id number] [place] [address] 91197- 3477 July, [facility] [id number] [place] [address] 87268- 6386 30 Jun, 2014 [facility] [id number] [place] [address] 52311- 8837 Jun, [facility] [id number] [place] [address] 35658- 8128 Jun, [facility] [id number] [place] [address] 33053- 9114 May, [facility] [id number] [place] [address] 94827- 2000 May, [facility] [place] [facility] [address] [id number] [place] [address]- 6283 May, [facility] [place] [facility] [address] [id number] [place] [address]- 8917 May, [facility] [place] [facility] [address] [id number] [place] [address]- 0192 May, [facility] [place] [facility] [address] [id number] [place] [address]- 3398 16 May, 2014 [facility] [place] [facility] [address] [id number] [place] [address]- 3491 May, [facility] [place] [facility] [address] [id number] [place] [address]- 8474 May, [facility] [place] [facility] [address] [id number] [place] [address]- 6836 May, [facility] [place] [facility] [address] [id number] [place] [address]- 9352 May, [facility] [place] [facility] [address] [id number] [place] [address]- 6004 May, [facility] [place] [facility] [address] [id number] [place] [address]- 6276 Apr, 2014 [facility] [place] [facility] [address] [id number] [place] [address]- 3593 Apr, 2014 [facility] [place] [facility] [address] [id number] [address]- 6998 Apr, 2014 [facility] [place] [facility] [address] [id number] [place] [address]- 4447 Apr, 2014 [facility] [place] [facility] [address] [id number] [place] [address]- 4118 Apr, 2014 [facility] [place] [facility] [address] [id number] [place] [address]- 7334 Apr, 2014 [facility] [place] [facility] [address] [id number] [place] [address]- 6436 Apr, [facility] [address] [id number] [place] [address]- 4045 Apr, [facility] [address] [id number] [place] [address]- 8961 Mar, [facility] [address] [id number] [place] [address]- 6233 Mar, [facility] [address] [id number] [place] [address]- 5560 Mar, [facility] [address] [id number] [place] [address]- 2823 Mar, [facility] [address] [id number] [place] [address]- 5155 Mar, [facility] [address] [id number] [place] [address]- 9589 Mar, [facility] [address] [id number] [place] [address]- 4157 Feb, [facility] [address] [id number] [place] [address]- 3478 Feb, [facility] [address] [id number] [place] [address]- 7382 Feb, [facility] [place] [facility] [address] [id number] [place] [address]- 7175 Feb, [facility] [address] [id number] [place] [address]- 254 Feb, [facility] [place] [facility] [address] [id number] [place] [address]- 9630 Feb, [facility] [place] [facility] [address] [id number] [place] [address]- 9156 Feb, [facility] [place] [facility] [address] [id number] [place] [address]- 3542 Feb, [facility] [place] [facility] [address] [id number] [place] [address]- 4428 Feb, [facility] [place] [facility] [address] [id number] [place] [address]- 2843 Feb, [facility] [place] [facility] [address] [id number] [place] [address]- 5449 Feb, [facility] [place] [facility] [address] [id number] [place] [address]- 7284 Feb, [facility] [place] [facility] [address] [id number] [place] [address]- 0844 Feb, [facility] [place] [facility] [address] [id number] [place] [address]- 1441 Feb, [facility] [place] [facility] [address] [id number] [place] [address]- 5736 Feb, [facility] [place] [facility] [address] [id number] [place] [address]- 0677 Feb, [facility] [place] [facility] [address] [id number] [place] [address]- 5087 Feb, [facility] [place] [facility] [address] [id number] [place] [address]- 9295 Feb, [facility] [place] [facility] [address] [id number] [place] [address]- 7610 Feb, [facility] [place] [facility] [address] [id number] [place] [address]- 3864 Feb, [facility] [place] [facility] [address] [id number] [place] [address]- 1671 Feb, [facility] [place] [facility] [address] [id number] [place] [address]- 8148 Feb, [facility] [place] [facility] [address] [id number] [place] [address]- 1042 Feb, [facility] [place] [facility] [address] [id number] [place] [address]- 1841 Jan, [facility] [place] [facility] [address] [id number] [place] [address]- 8192 Jan, [facility] [place] [facility] [address] [id number] [place] [address]- 4323 Jan, [facility] [place] [facility] [address] [id number] [place] [address]- 7604 Jan, [facility] [place] [facility] [address] [id number] [place] [address]- 1044 Jan, [facility] [place] [facility] [address] [id number] [place] [address]- 9932 Jan, [facility] [place] [facility] [address] [id number] [place] [address]- 4555 Jan, [facility] [place] [facility] [address] [id number] [place] [address]- 5008 Jan, [facility] [place] [facility] [address] [id number] [place] [address]- 5173 Jan, [facility] [place] [facility] [address] [id number] [place] [address]- 0550 Dec, [facility] [place] [facility] [address] [id number] [place] [address]- 6364 Dec, [facility] [place] [facility] [address] [id number] [place] [address]- 2767 Dec, [facility] [place] [facility] [address] [id number] [address]- 9770 Dec, [facility] [place] [facility] [address] [id number], [place] [address]- 6484 Dec, [facility] [place] [facility] [address] [id number], [place] [address]- 5734 Dec, [facility] [place] [facility] [address] [id number] 5404 Dec, [facility] [place] [facility] [address] [id number] [place] [address]- 6316 Dec, [facility] [place] [facility] [address] [id number] [place] [address]- 3494 Dec, [facility] [place] [facility] [address] [id number] [place] [address]- 4473 Dec, [facility] [place] [facility] [address] [id number] [place] [address]- 1472 Nov, [facility] [place] [facility] [address] [id number] [place] [address] 2549 30 Nov, 2013 [facility] [place] [facility] [address] [id number] [place] [address]- 0465 Nov, [facility] [place] [facility] [address] [id number] [place] [address]- 9533 Nov, [facility] [place] [facility] [address] [id number] [place] [address]- 3232 Nov, [facility] [place] [facility] [address] [id number] [place] [address]- 5069 Nov, [facility] [place] [facility] [address] [id number] [place] [address]- 8610 Nov, [facility] [place] [facility] [address] [id number] [place] [address]- 7529 Nov, [facility] [place] [facility] [address] [id number] [place] [address]- 1474 Nov, [facility] [place] [facility] [address] [id number] [place] [address] 2549 Nov, [facility] [place] [facility] [address] [id number] [place] [address]- 9621 Oct, [facility] [place] [facility] [address] [id number] [place] [address]- 8692 Oct, [facility] [place] [facility] [address] [id number] [place] [address]- 8727 Oct, [facility] [place] [facility] [address] [id number] [place] [address]- 7781 Oct, [facility] [place] [facility] [address] [id number] [place] [address]- 5718 Oct, [facility] [place] [facility] [address] [id number] [place] [address]- 8078 Oct, [facility] [place] [facility] [address] [id number] [place] [address]- 3539 Oct, [facility] [place] [facility] [address] [id number] [place] [address]- 9119 Oct, [facility] [place] [facility] [address] [id number] [place] [address]- 4250 Oct, [facility] [place] [facility] [address] [id number] [place] [address]- 8958 Oct, [facility] [place] [facility] [address] [id number] [place] [address]- 4823 Sep, [facility] [place] [facility] [address] [id number] [place] [address]- 2982 Sep, [facility] [place] [facility] [address] [id number] [place] [address]- 6613 Aug, [facility] [place] [facility] [address] [id number] [place] [address]- 4595 Aug, [facility] [place] [facility] [address] [id number] [place] [address]- 7384 Aug, [facility] [place] [facility] [address] [id number] [place] [address]- 0309 Aug, [facility] [place] [facility] [address] [id number] [place] [address]- 9189 Aug, [facility] [place] [facility] [address] [id number] [place] [address]- 7472 Aug, [facility] [place] [facility] [address] [id number] [place] [address] Aug, [facility] [place] [facility] [address] [id number] [place] [address] Aug, [facility] [place] [facility] [address] [id number] [place] [address] Aug, [facility] [place] [facility] [address] [id number] [place] [address] Aug, [facility] [place] [facility] [address] [id number] [place] [address] Aug, [facility] [place] [facility] [address] [id number] [place] [address] Aug, [facility] [place] [facility] [address] [id number] [place] [address] July, [facility] [place] [facility] [address] [id number] [place] [address] July, [facility] [place] [facility] [address] [id number] [place] [address] July, [facility] [place] [facility] [address] [id number] [place] [address] July, [facility] [place] [facility] [address] [id number] [place] [address] July, [facility] [place] [facility] [address] [id number] [place] [address] July, [facility] [place] [facility] [address] [id number] [place] [address] July, [facility] [place] [facility] [address] [id number] [place] [address] July, [facility] [place] [facility] [address] [id number] [place] [address] Jun, [facility] [place] [facility] [address] [id number] [place] [address] Jun, [facility] [place] [facility] [address] [id number] [place] [address] 27 May, 2013 [facility] [place] [facility] [address] [id number] [place] [address] 27 May, 2013 [facility] [place] [facility] [address] [id number] [place] [address] 27 May, 2013 [facility] [place] [facility] [address] [id number] [place] [address] May, [facility] [place] [facility] [address] [id number] [place] [address] May, [facility] [place] [facility] [address] [id number] [place] [address] May, [facility] [place] [facility] [address] [id number] [place] [address] May, [facility] [place] [facility] [address] [id number] [place] [address] May, [facility] [place] [facility] [address] [id number] [place] [address] Apr, [facility] [place] [facility] [address] [id number] [place] [address] Apr, [facility] [place] [facility] [address] [id number] [place] [address] Apr, [facility] [place] [facility] [address] [id number] [place] [address] Apr, [facility] [place] [facility] [address] [id number] [place] [address] Apr, [facility] [place] [facility] [address] [id number] [place] [address] Apr, [facility] [place] [facility] [address] [id number] [place] [address] Apr, [facility] [place] [facility] [address] [id number] [place] [address] Apr, [facility] [address] [id number] [place] [address] Mar, [facility] [place] [facility] [address] [id number] [place] [address] Mar, [facility] [address] [id number] [place] [address] Mar, [facility] [place] [facility] [address] [id number] [place] [address] Mar, [facility] [address] [id number] [place] [address] Mar, [facility] [place] [facility] [address] [id number] [place] [address] Mar, [facility] [address] [id number] [place] [address] Mar, [facility] [address] [id number] [place] [address] Mar, [facility] [place] [facility] [address] [id number] [place] [address] Mar, [facility] [address] [id number] [place] [address] Mar, [facility] [address] [id number] [place] [address] Feb, [facility] [place] [facility] [address] [id number] [place] [address] Feb, [facility] [place] [facility] [address] [id number] [place] [address] Feb, [facility] [place] [facility] [address] [id number] [place] [address] Feb, [facility] [place] [facility] [address] [id number] [place] [address] Jan, [facility] [place] [facility] [address] [id number] [place] [address] Jan, [facility] [place] [facility] [address] [id number] [place] [address] Dec, [facility] [place] [facility] [address] [id number] [place] [address] Dec, [facility] [place] [facility] [address] [id number] [place] [address]- [address] Dec, [facility] [place] [facility] [address] [id number] [place] [address] Dec, [facility] [place] [facility] [address] [id number] [place] [address]- [address] Dec, [facility] [place] [facility] [address] [id number] [place] [address] Dec, [facility] [place] [facility] [address] [id number] [place] [address]- [address] Dec, [facility] [place] [facility] [address] [id number] [place] [address] Dec, [facility] [place] [facility] [address] [id number] [place] [place] [address] Dec, [facility] [place] [facility] [address] [id number] [place] [address] Dec, [facility] [place] [facility] [address] [id number] [address] Dec, [facility] [place] [facility] [address] [id number] [place] [address] Dec, [facility] [place] [facility] [address] [id number] [place] [address] Dec, [facility] [place] [facility] [address] [id number], [place] [address] Nov, [facility] [place] [facility] [address] [id number], [place] [address] Nov, [facility] [place] [facility] [address] [id number] [place] [address] Nov, [facility] [place] [facility] [address] [id number] [place] [address] 9204 Nov, [facility] [place] [facility] [address] [id number] [place] [address]200 Nov, [facility] [place] [facility] [address] [id number] [place] [address]384 Oct, [facility] [place] [facility] [address] [id number] [place] [address]574 Oct, [facility] [place] [facility] [address] [id number] [place] [address]- 2765 Oct, [facility] [place] [facility] [address] [id number] [place] [address]- 2503 Oct, [facility] [place] [facility] [address] [id number] [place] [address]- 5918 Oct, [facility] [place] [facility] [address] [id number] [place] [address]- 9248 Oct, [facility] [place] [facility] [address] [id number] [place] [address]- 8230 Oct, [facility] [place] [facility] [address] [id number] [place] [address] Sep, [facility] [place] [facility] [address] [id number] [place] [address]- 3103 Sep, [facility] [place] [facility] [address] [id number] [place] [address]- [address]755 Sep, [facility] [place] [facility] [address] [id number] [place] [address]- [address] Aug, [facility] [place] [facility] [address] [id number] [place] [address]- 7750 Aug, [facility] [place] [facility] [address] [id number] [place] [address]- 2546 Aug, [facility] [address] [id number] [place] [address] Aug, [facility] [address] [id number] [place] [address] 2546 July, [facility] [address] [id number] [place] [address]- 3516 July, [facility] [address] [id number] [place] [address]- 0896 July, [facility] [address] [id number] [place] [address]- 9096 July, [facility] [address] [id number] [place] [address]- 0736 Jun, [facility] [address] [id number] [place] [address]- 2446 Jun, [facility] [address] [id number] [place] [address]- 0671 May, [facility] [address] [id number] [place] [address]- 0496 May, [facility] [address] [id number] [place] [address]- 3246 Apr, [facility] [address] [id number] [place] [address]- 2546 Apr, [facility] [address] [id number] [place] [address]- 7417 Feb, [facility] [address] [id number] [place] [address]- 2136 Feb, [facility] [address] [id number] [place] [address]- 2546 Feb, [facility] [address] [id number] [place] [address]- 0075 Feb, [facility] [place] [facility] [address] [id number] [place] [address]- 3284 Feb, [facility] [place] [facility] [address] [id number] [place] [address]- 5082 Feb, [facility] [place] [facility] [address] [id number] [place] [address]- 6968 Jan, [facility] [place] [facility] [address] [id number] [place] [address]- 8944 Jan, [facility] [place] [facility] [address] [id number] [place] [address]- 0237 Jan, [facility] [place] [facility] [address] [id number] [place] [address]- 0511 Jan, [facility] [place] [facility] [address] [id number] [place] [address]- 2383 Jan, [facility] [place] [facility] [address] [id number] [place] [address]- 4029 Jan, [facility] [place] [facility] [address] [id number] [place] [address]- 0197 Jan, [facility] [place] [facility] [address] [id number] [place] [address]- 1434 Jan, [facility] [place] [facility] [address] [id number], [place] [address]992 Jan, [facility] [place] [facility] [address] [id number], [place] [address] 5174 Jan, [facility] [place] [facility] [address] [id number] [place] [address] Jan, [facility] [place] [facility] [address] [id number], [place] [address] 1606 Jan, [facility] [place] [facility] [address] [id number] [place] [address]- 9287 Jan, [facility] [place] [facility] [address] [id number] [place] [address]- 3156 Dec, [facility] [place] [facility] [address] [id number] [place] [address]- 6657 Dec, [facility] [place] [facility] [address] [id number] [place] [address]- 6243 Dec, [facility] [place] [facility] [address] [id number] [place] [address]- 2478 Dec, [facility] [place] [facility] [address] [id number] [place] [address]- 4506 Dec, [facility] [place] [facility] [address] [id number] [place] [address]- 2305 Dec, [facility] [place] [facility] [address] [id number] [place] [address]- 6809 Dec, [facility] [place] [facility] [address] [id number] [place] [address]- 5290 Nov, [facility] [place] [facility] [address] [id number] [place] [address]- 9500 Nov, [facility] [place] [facility] [address] [id number] [place] [address]- 3219 Oct, [facility] [place] [facility] [address] [id number] [place] [address]- 8678 Oct, [facility] [place] [facility] [address] [id number] [place] [address]- 7295 Sep, [facility] [place] [facility] [address] [id number] [place] [address]- 2542 Sep, [facility] [place] [facility] [address] [id number] [place] [address]- 5080 Sep, [facility] [place] [facility] [address] [id number] [place] [address]- 9706 Sep, [facility] [place] [facility] [address] [id number] [place] [address]- 2898 July, [facility] [place] [facility] [address] [id number] [place] [address]- 3504 July, [facility] [address] [id number] [place] [address]- 1817 July, [facility] [place] [facility] [address] [id number] [place] [address]- 1261 Jun, [facility] [place] [facility] [address] [id number] [place] [address]- 8854 Jun, [facility] [address] [id number] [place] [address]- 9855 Jun, [facility] [place] [facility] [address] [id number] [place] [address]- 8493 16 Jun, 2011 [facility] [address] [id number] [place] [address]- 3101 Jun, [facility] [address] [id number] [place] [address]- 1358 Jun, [facility] [address] [id number] [place] [address]- 3162 Jun, [facility] [address] [id number] [place] [address]- 4478 Jun, [facility] [place] [facility] [address] [id number] [place] [address]- 3906 Jun, [facility] [place] [facility] [address] [id number] [place] [address]- 3299 May, [facility] [place] [facility] [address] [id number] [place] [address]- 0312 May, [facility] [place] [facility] [address] [id number] [place] [address]- 7148 May, [facility] [place] [facility] [address] [id number] [place] [address]- 3685 May, [facility] [place] [facility] [address] [id number] [place] [address]- 9060 May, [facility] [place] [facility] [address] [id number] [place] [address]- 3184 Apr, [facility] [place] [facility] [address] [id number] [place] [address]- 1276 Mar, [facility] [place] [facility] [address] [id number] [place] [address] 2546 Mar, [facility] [place] [facility] [address] [id number] [place] [address]- 4356 Feb, [facility] [place] [facility] [address] [id number] [place] [address]- 1185 Feb, [facility] [place] [facility] [address] [id number] [place] [address]- 5466 Feb, [facility] [place] [facility] [address] [id number] [place] [address]- 0944 Jan, [facility] [place] [facility] [address] [id number] [place] [address]- 2686 Dec, [facility] [place] [facility] [address] [id number] [place] [address]- 2130 Dec, [facility] [place] [facility] [address] [id number] [place] [address]- 4071 Dec, [facility] [place] [facility] [address] [id number] [place] [address]- 9065 July, [facility] [place] [facility] [address] [id number] [place] [address] 2548 May, [facility] [place] [facility] [address] [id number] [place] [address]- 5641 Feb, [facility] [place] [facility] [address] [id number] [place] [address]- 9805 Feb, [facility] [place] [facility] [address] [id number] [place] [address] 2546 Feb, [facility] [place] [facility] [address] [id number] [place] [address]- 2456 12 Jan, 2010 [facility] [address] [id number] [place] [address]- 1846 26 Dec, 2009 [facility] [address] [id number] [place] [address]- 8526 13 Dec, 2009 [facility] [address] [id number] [place] [address]- 2926 Oct, [facility] [address] [id number] [place] [address]- 0215 July, [facility] [address] [id number] [place] [address], [place] [address]- 0517 18 Apr, 2009 [facility] [address] [facility] [id number] [place] [address]- 7316 Mar, [facility] [address] [facility] [id number] [place] [address]- 0082 Feb, [facility] [address] [id number] [place] [address]483 Feb, [facility] [address] [facility] [id number] [place] [address]- 2139 Feb, [facility] [address] [facility] [id number] [place] [address]- 7535 Feb, [facility] [address] [facility] [id number] [place] [address]- 2541 Feb, [facility] [address] [id number], [place] [address] 2541 Jan, [facility] [address] [facility] [id number] [place] [address]- 9676 Jan, [facility] [address] [facility] [id number] [place] [address] 2546 20 Dec, 2008 [facility] [address] [facility] [id number] [place] [address] 2024 14 Nov, 2008 IMMUNIZATIONS No Known Immunizations SOCIAL HISTORY Never Assessed REASON FOR VISIT referral PLAN OF CARE VITAL SIGNS MEDICATIONS Unknown [...] History left knee replacement 2018 Hospitalization History [facility]- Right knee surgery. discharged 01/27/17 Hospitalization History [facility]- Left knee replacement 06/16/2017
--- OUTSIDE RECORDS SUMMARY | 2018-02-11 11:05 | XMS REPORT ---
Author Author STORMHERBER [facility] Address [address] [place] [address] Care Team Providers Care Train Brake Operator Name Role Phone HERBER STORM Unavailable PROBLEMS Type Condition ICD9-CM Code VCU70-XY Code Onset Dates Condition Status SNOMED Code Problem Arthritis M19.90 Active 5708080 Problem Allergic state, subsequent encounter T78.40XD Active 751114447 Problem Hypothyroidism (acquired) E03.9 Active 856950949 Problem Mild intermittent asthma with exacerbation J45.21 Active 036641414 Problem COPD with exacerbation J44.1 Active 636858029 Problem Obstructive sleep apnea (adult) (pediatric) G47.33 Active 07186626 Problem Dependence on other enabling machines and devices Z99.89 Active 949687304 Problem Body mass index (BMI) of 45.0-49.9 in adult Z68.42 Active 107853765 Problem Morbid (severe) obesity due to excess calories E66.01 Active 539496331 ALLERGIES No Information ENCOUNTERS Encounter Location Date Diagnosis [facility] [id number] [place] [address] 76154- 9952 Oct, Prediabetes R73.03 [facility] [id number] [place] [address] 02544- 3017 Oct, Essential hypertension I10 and Hypothyroidism (acquired) E03.9 [facility] [address], [place] [address] 1797 Oct, [facility] [id number] [place] [address] 47573- 0582 Oct, [facility] [address] [place] [address] 03891- 2160 Oct, Essential hypertension I10 ; Hypothyroidism (acquired) [...] and Obstructive sleep apnea (adult) (pediatric) G47.33 [facility] [address] [place] [address] 54933 -9758 Sep, Mild intermittent asthma with exacerbation J45.21 [facility] [id number] [place] [address] 07385- 6575 Sep, [facility] [id number] [place] [address] 01022- 1173 Sep, Long-term use of high-risk medication Z79.899 [facility] [id number] [place] [address] 48007- 9175 Sep, Long-term use of high-risk medication Z79.899 [facility] [id number] [place] [address] 26747- 5921 July, [facility] [id number] [place] [address] 06026- 8250 Jun, [facility] [address], [place] [address] 8510 May, Asthma J45.909 [facility] [id number] [place] [address] 89634- 1541 May, [facility] [id number] [place] [address] 15396- 6142 27 Apr, 2017 Pre-op evaluation Z01.818 ; Allergic state, subsequent encounter T78.40XD and BMI 45.0-49.9, adult Z68.42 [facility] [address], [place] [address]- 5187 Mar, [facility] [id number] [place] [address] 32518- 5629 Mar, [facility] [address] 8[address]14 -2195 Mar, Cough R05 ; Acute nasopharyngitis J00 and BMI 45.0-49.9, adult Z68.42 [facility] [address] 77807- 5001 Mar, [facility] [address] 16004- 9508 Jan, Ganglion cyst of finger of right hand M67.441 [place] [address] 72882- 8150 Dec, [place] [address] 17523- 5536 Dec, Change in vision H53.9 ; Arthritis M19.90 ; Essential hypertension I10 ; GERD with esophagitis K21.0 ; Hypothyroidism (acquired) E03.9 and Ganglion cyst of joint of finger of left hand M67.442 [place] [address] 38832- 4642 15 Nov, 2016 Encounter for immunization Z23 [place] [address] 11129- 7215 07 Nov, 2016 [place] [address] 48421- 5421 Sep, [place] [address] 10652- 3364 Aug, [place] [address] 92060- 6548 July, Cyst of joint of right hand M25.841 [place] [address] 52370- 1234 May, [place] [address] 55368- 8304 May, Fever, unspecified R50.9 and Influenza A J10.1 [place] [id number] [place] [address] 46646- 9520 May, Left shoulder pain, unspecified chronicity M25.512 [place] [address] 13471- 1900 Apr, [place] [address] 23887- 0335 Apr, Infraspinatus tendon tear, left, subsequent encounter S46.812D and Supraspinatus tendon tear, left, subsequent encounter S46.812D [place] [id number] [place] [address] 02371- 7667 Apr, [place] [address] 16910- 3780 Mar, Left shoulder pain, unspecified chronicity M25.512 [place] [id number] [place] [address] 47846- 0774 Mar, [place] [address] 12324- 0172 Mar, Left shoulder pain, unspecified chronicity M25.512 [place] [id number] [place] [address] 84063- 0825 Feb, Chronic superficial gastritis without bleeding K29.30 ; Left upper quadrant pain R10.12 ; Essential hypertension I10 ; Dyspnea on exertion R06.09 and Palpitations R00.2 [place] [id number] [place] [address] 16063- 7541 Jan, Colon polyps K63.5 [place] [address] 87091- 1680 Jan, Colon polyps K63.5 [place] [id number] [place] [address] 88732- 8125 Dec, [facility] [address] [place] [address] 91091 -1650 Dec, GERD with esophagitis K21.0 [facility] [id number] [place] [address] 10995- 6055 Nov, Arthritis pain M19.90 ; Colon polyps K63.5 ; Seasonal allergic rhinitis due to pollen J30.1 and Encounter for immunization Z23 [facility] [address] 37190- 7536 Nov, [facility] [id number] [place] [address] 61909- 9940 Oct, [facility] [address] 35552- 8357 Sep, [facility] [id number] [place] [address] 94674- 4356 July, [facility] [id number] [place] [address] 47267- 6463 July, [facility] [id number] [place] [address] 88276- 9952 July, Asthma with acute exacerbation J45.901 and Bronchitis J40 [facility] [id number] [place] [address] 11169- 7622 Jun, [facility] [id number] [place] [address] 48745- 8055 May, Other specified hypothyroidism E03.8 and 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 [facility] [id number] [place] [address] 94095- 1462 Apr, [facility] [id number] [place] [address] 07122- 0920 Apr, Sacroiliac joint pain M53.3 [facility] [id number] [place] [address] 94605- 2789 Mar, Other specified hypothyroidism E03.8 ; Restless legs syndrome G25.81 ; Asthma with acute exacerbation J45.901 and Bronchitis J40 [facility] [id number] [place] [address] 27060 -3722 Feb, Upper respiratory symptom R09.89 [facility] [id number] [place] [address] 72493- 8983 08 Feb, 2015 Restless leg G25.81 and Asthma J45.909 [facility] [id number] [place] [address] 41499- 9288 08 Dec, 2014 Rupture of tendon of right shoulder S46.911A [place] [address] 00099- 2046 05 Dec, 2014 Sacroiliac joint pain M53.3 [place] [id number] [place] [address] 01456- 3583 30 Nov, 2014 [place] [address] 76140- 6248 28 Nov, 2014 Lumbago of lumbosacaral region with sciatica 724.2 and Sacroiliitis 720.2 [place] [id number] [place] [address] 83304- 2881 22 Nov, 2014 Influenza vaccine administered V04.81 [place] [id number] [place] [address] 43336- 9931 Nov, [place] [id number] [place] [address] 68897- 0745 Nov, [place] [id number] [place] [address] 23055- 3189 18 Nov, 2014 Thyroid function test abnormal 794.5 and Thyroid antibody positive 795.79 [place] [id number] [place] [address] 40211- 7761 16 Nov, 2014 Hypothyroidism 244.9 ; Thyroid antibody positive 795.79 and Right shoulder pain 719.41 [place] [id number] [address]- 3330 Oct, [facility] [id number] [place] [address] 61438- 7974 18 Oct, 2014 Thyroid function test abnormal 794.5 [facility] [id number] [place] [address] 72068- 6300 14 Oct, 2014 Hypertension 401.9 and Bilateral leg pain 729.5 [facility] [id number] [place] [address] 36668- 6134 Oct, [facility] [id number] [place] [address] 33217- 2110 Oct, Bilateral leg pain 729.5 and Hypertension 401.9 [facility] [id number] [place] [address] 80529- 1723 Sep, Bilateral leg pain 729.5 ; Hypertension 401.9 and Edema 782.3 [facility] [id number] [place] [address] 42309- 0073 Aug, Unspecified hereditary and idiopathic peripheral neuropathy 356.9 and Arthritis 716.90 [facility] [id number] [place] [address] 11415- 2164 Aug, [facility] [id number] [place] [address] 69717- 4720 July, [facility] [id number] [place] [address] 24430- 8445 30 Jun, 2014 [facility] [id number] [place] [address] 81076- 1797 Jun, [facility] [id number] [place] [address] 77988- 2435 Jun, [facility] [id number] [place] [address] 57051- 3043 May, [facility] [id number] [place] [address] 12119- 5121 May, [facility] [place] [facility] [address] [id number] [place] [address]- 1611 May, [facility] [place] [facility] [address] [id number] [place] [address]- 0563 May, [facility] [place] [facility] [address] [id number] [place] [address]- 6831 May, [facility] [place] [facility] [address] [id number] [place] [address]- 1728 16 May, 2014 [facility] [place] [facility] [address] [id number] [place] [address]- 5987 May, [facility] [place] [facility] [address] [id number] [place] [address]- 9299 May, [facility] [place] [facility] [address] [id number] [place] [address]- 3692 May, [facility] [place] [facility] [address] [id number] [place] [address]- 5953 May, [facility] [place] [facility] [address] [id number] [place] [address]- 4794 May, [facility] [place] [facility] [address] [id number] [place] [address]- 3073 Apr, 2014 [facility] [place] [facility] [address] [id number] [place] [address]- 1429 Apr, 2014 [facility] [place] [facility] [address] [id number], [place] [address]- 5948 Apr, 2014 [facility] [place] [facility] [address] [id number] [place] [address]- 9639 Apr, 2014 [facility] [place] [facility] [address] [id number] [place] [address]- 9486 Apr, 2014 [facility] [place] [facility] [address] [id number] [place] [address]- 7961 Apr, 2014 [facility] [place] [facility] [address] [id number] [place] [address]- 1095 Apr, [facility] [address] [id number] [place] [address]- 4374 Apr, [facility] [address] [id number] [place] [address]- 7477 Mar, [facility] [address] [id number] [place] [address]- 0091 Mar, [facility] [address] [id number] [place] [address]- 3585 Mar, [facility] [address] [id number] [place] [address]- 2960 Mar, [facility] [address] [id number] [place] [address]- 6172 Mar, [facility] [address] [id number] [place] [address]- 0674 Mar, [facility] [address] [id number] [place] [address]- 6601 Feb, [facility] [address] [id number] [place] [address]- 7313 Feb, [facility] [address] [id number] [place] [address]- 9012 Feb, [facility] [place] [facility] [address] [id number] [place] [address]- 9216 Feb, [facility] [address] [id number] [place] [address]- 2548 Feb, [facility] [place] [facility] [address] [id number] [place] [address]- 1750 Feb, [facility] [place] [facility] [address] [id number] [place] [address]- 0266 Feb, [facility] [place] [facility] [address] [id number] [place] [address]- 6292 Feb, [facility] [place] [facility] [address] [id number] [place] [address]- 3788 Feb, [facility] [place] [facility] [address] [id number] [place] [address]- 5739 Feb, [facility] [place] [facility] [address] [id number] [place] [address]- 6549 Feb, [facility] [place] [facility] [address] [id number] [place] [address]- 9718 Feb, [facility] [place] [facility] [address] [id number] [place] [address]- 3304 Feb, [facility] [place] [facility] [address] [id number] [place] [address]- 8425 Feb, [facility] [place] [facility] [address] [id number] [place] [address]- 3628 Feb, [facility] [place] [facility] [address] [id number] [place] [address]- 9354 Feb, [facility] [place] [facility] [address] [id number] [place] [address]- 7703 Feb, [facility] [place] [facility] [address] [id number] [place] [address]- 8452 Feb, [facility] [place] [facility] [address] [id number] [place] [address]- 8318 Feb, [facility] [place] [facility] [address] [id number] [place] [address]- 6657 Feb, [facility] [place] [facility] [address] [id number] [place] [address]- 2127 Feb, [facility] [place] [facility] [address] [id number] [place] [address]- 7142 Feb, [facility] [place] [facility] [address] [id number] [place] [address]- 0228 Feb, [facility] [place] [facility] [address] [id number] [place] [address]- 3958 Jan, [facility] [place] [facility] [address] [id number] [place] [address]- 7236 Jan, [facility] [place] [facility] [address] [id number] [place] [address]- 0136 Jan, [facility] [place] [facility] [address] [id number] [place] [address]- 6559 Jan, [facility] [place] [facility] [address] [id number] [place] [address]- 1708 Jan, [facility] [place] [facility] [address] [id number] [place] [address]- 2431 Jan, [facility] [place] [facility] [address] [id number] [place] [address]- 8555 Jan, [facility] [place] [facility] [address] [id number] [place] [address]- 6087 Jan, [facility] [place] [facility] [address] [id number] [place] [address]- 5782 Jan, [facility] [place] [facility] [address] [id number] [place] [address]- 9162 Dec, [facility] [place] [facility] [address] [id number] [place] [address]- 7658 Dec, [facility] [place] [facility] [address] [id number] [place] [address]- 6399 Dec, [facility] [place] [facility] [address] [id number], [place] [address]- 7188 Dec, [facility] [place] [facility] [address] [id number], [place] [address]- 2562 Dec, [facility] [place] [facility] [address] [id number], [place] [address]- 5142 Dec, [facility] [place] [facility] [address] [id number][place] 8368 Dec, [facility] [place] [facility] [address] [id number] [place] [address]- 2599 Dec, [facility] [place] [facility] [address] [id number] [place] [address]- 4939 Dec, [facility] [place] [facility] [address] [id number] [place] [address]- 8713 Dec, [facility] [place] [facility] [address] [id number] [place] [address]- 0287 Nov, [facility] [place] [facility] [address] [id number] [place] [address] 2544 30 Nov, 2013 [facility] [place] [facility] [address] [id number] [place] [address]- 2035 Nov, [facility] [place] [facility] [address] [id number] [place] [address]- 2309 Nov, [facility] [place] [facility] [address] [id number] [place] [address]- 2022 Nov, [facility] [place] [facility] [address] [id number] [place] [address]- 5619 Nov, [facility] [place] [facility] [address] [id number] [place] [address]- 8640 Nov, [facility] [place] [facility] [address] [id number] [place] [address]- 4383 Nov, [facility] [place] [facility] [address] [id number] [place] [address]- 2192 Nov, [facility] [place] [facility] [address] [id number] [place] [address] 2543 Nov, [facility] [place] [facility] [address] [id number] [place] [address]- 1317 Oct, [facility] [place] [facility] [address] [id number] [place] [address]- 0415 Oct, [facility] [place] [facility] [address] [id number] [place] [address]- 5952 Oct, [facility] [place] [facility] [address] [id number] [place] [address]- 9041 Oct, [facility] [place] [facility] [address] [id number] [place] [address]- 1783 Oct, [facility] [place] [facility] [address] [id number] [place] [address]- 0721 Oct, [facility] [place] [facility] [address] [id number] [place] [address]- 8307 Oct, [facility] [place] [facility] [address] [id number] [place] [address]- 7131 Oct, [facility] [place] [facility] [address] [id number] [place] [address] Oct, [facility] [place] [facility] [address] [id number] [place] [address] Oct, [facility] [place] [facility] [address] [id number] [place] [address] Sep, [facility] [place] [facility] [address] [id number] [place] [address] Sep, [facility] [place] [facility] [address] [id number] [place] [address] Aug, [facility] [place] [facility] [address] [id number] [place] [address] Aug, [facility] [place] [facility] [address] [id number] [place] [address] Aug, [facility] [place] [facility] [address] [id number] [place] [address] Aug, [facility] [place] [facility] [address] [id number] [place] [address]- [address] Aug, [facility] [place] [facility] [address] [id number] [place] [address] Aug, [facility] [place] [facility] [address] [id number] [place] [address]- [address] Aug, [facility] [place] [facility] [address] [id number] [place] [address] Aug, [facility] [place] [facility] [address] [id number] [place] [address] Aug, [facility] [place] [facility] [address] [id number] [place] [address]- [address] Aug, [facility] [place] [facility] [address] [id number] [place] [address] Aug, [facility] [place] [facility] [address] [id number] [place] [address] Aug, [facility] [place] [facility] [address] [id number] [place] [address]- [address] July, [facility] [place] [facility] [address] [id number] [place] [address]- [address] July, [facility] [place] [facility] [address] [id number] [place] [address]- [address] July, [facility] [place] [facility] [address] [id number] [place] [address] July, [facility] [place] [facility] [address] [id number] [place] [address]- [address] July, [facility] [place] [facility] [address] [id number] [place] [address]- [address] July, [facility] [place] [facility] [address] [id number] [place] [address]- [address] July, [facility] [place] [facility] [address] [id number] [place] [address]- [address]60 July, [facility] [place] [facility] [address] [id number] [place] [address]- [address] Jun, [facility] [place] [facility] [address] [id number] [place] [address]- [address] Jun, [facility] [place] [facility] [address] [id number] [place] [address]- [address] 27 May, 2013 [facility] [place] [facility] [address] [id number] [place] [address]- [address] 27 May, 2013 [facility] [place] [facility] [address] [id number] [place] [address]- [address] 27 May, 2013 [facility] [place] [facility] [address] [id number] [place] [address]- [address] May, [facility] [place] [facility] [address] [id number] [place] [address] May, [facility] [place] [facility] [address] [id number] [place] [address]- [address] May, [facility] [place] [facility] [address] [id number] [place] [address]- [address] May, [facility] [place] [facility] [address] [id number] [place] [address]- [address]99 May, [facility] [place] [facility] [address] [id number] [place] [address]- [address] Apr, [facility] [place] [facility] [address] [id number] [place] [address]- [address]64 Apr, [facility] [place] [facility] [address] [id number] [place] [address]- [address] Apr, [facility] [place] [facility] [address] [id number] [place] [address]- [address]43 Apr, [facility] [place] [facility] [address] [id number] [place] [address]- [address] Apr, [facility] [place] [facility] [address] [id number] [place] [address]- [address] Apr, [facility] [place] [facility] [address] [id number] [place] [address]- [address] Apr, [facility] [place] [facility] [address] [id number] [place] [address]- [address] Apr, [facility] [address] [id number] [place] [address]- [address] Mar, [facility] [place] [facility] [address] [id number] [place] [address]- [address] Mar, [facility] [address] [id number] [place] [address]- [address] Mar, [facility] [place] [facility] [address] [id number] [place] [address]- [address] Mar, [facility] [address] [id number] [place] [address]- [address] Mar, [facility] [place] [facility] [address] [id number] [place] [address]- [address] Mar, [facility] [address] [id number] [place] [address]- [address]009 Mar, [facility] [address] [id number] [place] [address]- [address] Mar, [facility] [place] [facility] [address] [id number] [place] [address]- [address] Mar, [facility] [address] [id number] [place] [address]- [address]19 Mar, [facility] [address] [id number] [place] [address]- [address] Feb, [facility] [facility] [address] [id number] [place] [address] Feb, [facility] [place] [facility] [address] [id number] [place] [address] Feb, [facility] [place] [facility] [address] [id number] [place] [address] Feb, [facility] [place] [facility] [address] [id number] [place] [address] 1274 Jan, [facility] [place] [facility] [address] [id number] [place] [address] 7755 Jan, [facility] [place] [facility] [address] [id number] [place] [address] Dec, [facility] [place] [facility] [address] [id number] [place] [address]294 Dec, [facility] [place] [address] [id number] [place] [address] 8047 Dec, [facility] [place] [facility] [address] [id number] [place] [address] 3803 Dec, [facility] [place] [facility] [address] [id number] [place] [address] 8811 Dec, [facility] [place] [facility] [address] [id number] [place] [address] Dec, [facility] [place] [facility] [address] [id number] [place] [address]- 6154 Dec, [facility] [place] [facility] [address] [id number] [place] [address]- 7486 Dec, [facility] [place] [facility] [address] [id number] [place] [address]- 9096 Dec, [facility] [place] [facility] [address] [id number] [place] [address]- 6344 Dec, [facility] [place] [address] [id number], [place] [address] Dec, [facility] [place] [facility] [address] [id number] [place] [address]- 5616 Dec, [facility] [place] [facility] [address] [id number] [place] [address]- 0343 Dec, [facility] [place] [address] [id number], [place] [address] Nov, [facility] [address] [id number], [place] [address] 5835 Nov, [facility] [place] [facility] [address] [id number] [place] [address]- 0770 Nov, [facility] [address] [id number] [place] [address]- 8445 Nov, [facility] [address] [id number] [place] [address]- 5384 Nov, [facility] [address] [id number] [place] [address]- 8088 Oct, [facility] [address] [id number] [place] [address]- 3624 Oct, [facility] [address] [id number] [place] [address]- 7496 Oct, [facility] [address] [id number] [place] [address]- 9663 Oct, [facility] [address] [id number] [place] [address]- 6925 Oct, [facility] [address] [id number] [place] [address]- 8753 Oct, [facility] [address] [id number] [place] [address]- 5491 Oct, [facility] [address] [id number] [place] [address]- 3382 Sep, [facility] [address] [id number] [place] [address]- 1853 Sep, [facility] [address] [id number] [place] [address]- 4987 Sep, [facility] [address] [id number] [place] [address]- 0475 Aug, [facility] [address] [id number] [place] [address]- 6002 Aug, [facility] [address] [id number] [place] [address]- 2546 Aug, [facility] [address] [id number] [place] [address] 4366 Aug, [facility] [address] [id number] [place] [address] 2546 July, [facility] [address] [id number] [place] [address] 2606 July, [facility] [address] [id number] [place] [address]- 6106 July, [facility] [address] [id number] [place] [address]- 0606 July, [facility] [address] [id number] [place] [address]- 6596 Jun, [facility] [address] [id number] [place] [address]- 3246 Jun, [facility] [address] [id number] [place] [address]- 6236 May, [facility] [address] [id number] [place] [address]- 9026 May, [facility] [address] [id number] [place] [address]- 6214 Apr, [facility] [address] [id number] [place] [address]- 2546 Apr, [facility] [address] [id number] [place] [address]- 7454 Feb, [facility] [address] [id number] [place] [address]- 6056 Feb, [facility] [address] [id number] [place] [address]- 2546 Feb, [facility] [address] [id number] [place] [address]- 0512 Feb, [facility] [address] [id number] [place] [address]- 2797 Feb, [facility] [address] [id number] [place] [address]- 8479 Feb, [facility] [address] [id number] [place] [address]- 4358 Jan, [facility] [address] [id number] [place] [address]- 2968 Jan, [facility] [address] [id number] [place] [address]- 0074 Jan, [facility] [address] [id number] [place] [address]- 4408 Jan, [facility] [address] [id number] [place] [address]- 7030 Jan, [facility] [address] [id number] [place] [address]- 6701 Jan, [facility] [address] [id number] [place] [address]- 7028 Jan, [facility] [address] [id number] [place] [address]- 3839 Jan, [facility] [address] [id number], [place] [address] Jan, [facility] [address] [id number], [place] [address]- 9714 Jan, [facility] [address] [id number] [place] [address]- 4889 Jan, [facility] [address] [id number], [place] [address]- 9864 Jan, [facility] [address] [id number] [place] [address]- 1364 Jan, [facility] [address] [id number] [place] [address]- 2828 Dec, [facility] [address] [id number] [place] [address]- 7345 Dec, [facility] [address] [id number] [place] [address]- 6214 Dec, [facility] [address] [id number] [place] [address]- 7754 Dec, [facility] [address] [id number] [place] [address]- 4989 Dec, [facility] [address] [id number] [place] [address]- 4072 Dec, [facility] [address] [id number] [place] [address]- 6430 Dec, [facility] [address] [id number] [place] [address]- 1393 Nov, [facility] [address] [id number] [place] [address]- 7435 Nov, [facility] [address] [id number] [place] [address]- 5591 Oct, [facility] [address] [id number] [place] [address]- 1389 Oct, [facility] [address] [id number] [place] [address]- 9375 Sep, [facility] [address] [id number] [place] [address]- 2543 Sep, [facility] [address] [id number] [place] [address]- 0374 Sep, [facility] [address] [id number] [place] [address]- 0968 Sep, [facility] [address] [id number] [place] [address]- 0137 July, [facility] [address] [id number] [place] [address]- 7813 July, [facility] [address] [id number] [place] [address]- 4470 July, [facility] [address] [id number] [place] [address]- 1658 Jun, [facility] [address] [id number] [place] [address]- 5317 Jun, [facility] [address] [id number] [place] [address]- 7877 Jun, [facility] [address] [id number] [place] [address]- 6687 16 Jun, 2011 [facility] [address] [id number] [place] [address]- 9387 Jun, [facility] [address] [id number] [place] [address]- 2728 Jun, [facility] [address] [id number] [place] [address]- 8765 Jun, [facility] [address] [id number] [place] [address]- 3018 Jun, [facility] [address] [id number] [place] [address]- 6106 Jun, [facility] [address] [id number] [place] [address]- 1311 May, [facility] [address] [id number] [place] [address]- 8906 May, [facility] [address] [id number] [place] [address]- 9993 May, [facility] [address] [id number] [place] [address]- 9500 May, [facility] [address] [id number] [place] [address]- 9250 May, [facility] [address] [id number] [place] [address]- 7423 Apr, [facility] [address] [id number] [place] [address]- 1096 Mar, [facility] [address] [id number] [place] [address] 2546 Mar, [facility] [address] [id number] [place] [address]- 3014 Feb, [facility] [address] [id number] [place] [address]- 6388 Feb, [facility] [address] [id number] [place] [address]- 2696 Feb, [facility] [address] [id number] [place] [address]- 7765 Jan, [facility] [address] [id number] [place] [address]- 6658 Dec, [facility] [address] [id number] [place] [address]- 2553 Dec, [facility] [address] [id number] [place] [address]- 9142 Dec, [facility] [address] [id number] [place] [address]- 9070 July, [facility] [address] [id number] [place] [address] 2541 May, [facility] [address] [id number] [place] [address]- 1724 Feb, [facility] [address] [id number] [place] [address]- 8366 Feb, [facility] [address] [id number] [place] [address] 2546 Feb, [facility] [address] [id number] [place] [address]- 2876 12 Jan, 2010 [facility] [address] [id number] [place] [address]- 4196 26 Dec, 2009 [facility] [address] [id number] [place] [address]- 8476 13 Dec, 2009 [facility] [address] [id number] [place] [address]- 3156 Oct, [facility] [address] [id number] [place] [address]- 4497 July, [facility] [address] [id number] [place] [address], [place] [address]- 5463 18 Apr, 2009 [facility] [address] [facility] [id number] [place] [address]- 1496 Mar, [facility] [address] [facility] [id number] [place] [address]- 8039 Feb, [facility] [address] [id number] [place] [address] Feb, [facility] [address] [facility] [id number] [place] [address]- 9996 Feb, [facility] [address] [facility] [id number] [place] [address]- 4378 Feb, [facility] [address] [facility] [id number] [place] [address]- 254 Feb, [facility] [address] [id number], [place] [address] 2540 Jan, [facility] [address] [facility] [id number] [place] [address]- 9306 Jan, [facility] [address] [facility] [id number] [place] [address] 2546 20 Dec, 2008 [facility] [address] [facility] [id number] [place] [address] 3967 14 Nov, 2008 IMMUNIZATIONS No Known Immunizations SOCIAL HISTORY Never Assessed REASON FOR VISIT Refill request PLAN OF CARE VITAL SIGNS MEDICATIONS Medication Instructions Dosage Frequency Start Date End Date Duration Status Meloxicam 15 mg Orally Once a day 1 tablet 24h Active RESULTS No Results PROCEDURES No Known [...] History left knee replacement 2018 Hospitalization History [facility]- Right knee surgery. discharged 01/27/17 Hospitalization History [facility]- Left knee replacement 06/16/2017
--- OUTSIDE RECORDS SUMMARY | 2018-02-11 11:06 | XMS REPORT ---
Author Author HERBER STORM [facility] Address [address] [place] [address] Care Team Providers Care Associate Store Leader Name Role Phone HERBER STORM Unavailable PROBLEMS Type Condition ICD9-CM Code UMT81-VJ Code Onset Dates Condition Status SNOMED Code Problem Arthritis M19.90 Active 9564526 Problem Allergic state, subsequent encounter T78.40XD Active 424975542 Problem Hypothyroidism (acquired) E03.9 Active 133094161 Problem Mild intermittent asthma with exacerbation J45.21 Active 440915989 Problem COPD with exacerbation J44.1 Active 027996227 Problem Obstructive sleep apnea (adult) (pediatric) G47.33 Active 94916355 Problem Dependence on other enabling machines and devices Z99.89 Active 720641529 Problem Body mass index (BMI) of 45.0-49.9 in adult Z68.42 Active 074735138 Problem Morbid (severe) obesity due to excess calories E66.01 Active 381953436 ALLERGIES Substance Reaction Event Type Date Status Celebrex nausea Drug Allergy Oct, Active ENCOUNTERS Encounter Location Date Diagnosis [facility] [id number] [place] [address] 77848- 2551 Oct, Prediabetes R73.03 [facility] [id number] [place] [address] 18147- 6462 Oct, Essential hypertension I10 and Hypothyroidism (acquired) E03.9 [facility] [id number] [place] [address] 11775- 0583 Oct, [facility] [id number] [place] [address] 91260- 1050 Oct, [facility] [id number] [place] [address] 46701- 9703 Oct, Essential hypertension I10 ; Hypothyroidism (acquired) [...] and Obstructive sleep apnea (adult) (pediatric) G47.33 [facility] [id number] [place] [address] 57151 -2836 Sep, Mild intermittent asthma with exacerbation J45.21 [facility] [address] 33390- 3153 Sep, [facility] [address] 21325- 6010 Sep, Long-term use of high-risk medication Z79.899 [facility] [id number] [place] [address] 96241- 9522 Sep, Long-term use of high-risk medication Z79.899 [facility] [address] 35490- 5476 July, [facility] [id number] [place] [address] 76660- 1289 Jun, [facility] [id number] [place] [address] 70323- 8985 May, Asthma J45.909 [facility] [id number] [place] [address] 11384- 4183 May, [facility] [address] 99329- 8476 27 Apr, 2017 Pre-op evaluation Z01.818 ; Allergic state, subsequent encounter T78.40XD and BMI 45.0-49.9, adult Z68.42 [facility] [address] 43087- 6579 Mar, [facility] [id number] [place] [address] 92298- 4595 Mar, [facility] [address] 63200 -8842 Mar, Cough R05 ; Acute nasopharyngitis J00 and BMI 45.0-49.9, adult Z68.42 [facility] [address] 53528- 0221 Mar, [facility] [address] 36634- 4354 Jan, Ganglion cyst of finger of right hand M67.441 [facility] [address] 75164- 4799 Dec, [facility] [address] 85439- 7051 Dec, Change in vision H53.9 ; Arthritis M19.90 ; Essential hypertension I10 ; GERD with esophagitis K21.0 ; Hypothyroidism (acquired) E03.9 and Ganglion cyst of joint of finger of left hand M67.442 [facility] [address] 32845- 6350 15 Nov, 2016 Encounter for immunization Z23 [facility] [address] 90871- 2355 Nov, [facility] [address] 90054- 9391 Sep, [facility] [address] 16750- 2661 Aug, [facility] [address] 42847- 5645 July, Cyst of joint of right hand M25.841 [facility] [address] 24876- 5780 May, [facility] [id number] [place] [address] 30751- 0534 May, Fever, unspecified R50.9 and Influenza A J10.1 [facility] [address] 12357- 1220 May, Left shoulder pain, unspecified chronicity M25.512 [facility] [address] 30370- 7425 Apr, [facility] [address] 27501- 1839 Apr, Infraspinatus tendon tear, left, subsequent encounter S46.812D and Supraspinatus tendon tear, left, subsequent encounter S46.812D [facility] [id number] [place] [address] 81317- 0842 Apr, [facility] [address] 94095- 5199 Mar, Left shoulder pain, unspecified chronicity M25.512 [facility] [address] 21685- 6447 Mar, [facility] [address] 60687- 2986 Mar, Left shoulder pain, unspecified chronicity M25.512 [facility] [address] 46720- 4173 Feb, Chronic superficial gastritis without bleeding K29.30 ; Left upper quadrant pain R10.12 ; Essential hypertension I10 ; Dyspnea on exertion R06.09 and Palpitations R00.2 [facility] [address] 86289- 1255 Jan, Colon polyps K63.5 [facility] [address] 42170- 0361 Jan, Colon polyps K63.5 [facility] [address] 35463- 0163 Dec, [facility] [id number] [place] [address] 27213 -4308 Dec, GERD with esophagitis K21.0 [facility] [id number] [place] [address] 93177- 3582 22 Nov, 2015 Arthritis pain M19.90 ; Colon polyps K63.5 ; Seasonal allergic rhinitis due to pollen J30.1 and Encounter for immunization Z23 [facility] [address] 35531- 9758 Nov, [facility] [address] 92051- 2932 Oct, [facility] [address] 38391- 8666 Sep, [facility] [address] 54840- 1497 July, [facility] [id number] [place] [address] 82914- 0936 July, [facility] [address] 32098- 9682 July, Asthma with acute exacerbation J45.901 and Bronchitis J40 [facility] [id number] [place] [address] 79673- 1448 Jun, [facility] [id number] [place] [address] 08406- 2168 May, Other specified hypothyroidism E03.8 and 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 [facility] [address] 51916- 2057 Apr, [facility] [id number] [place] [address] 07388- 2406 Apr, Sacroiliac joint pain M53.3 [facility] [address] 36950- 9526 Mar, Other specified hypothyroidism E03.8 ; Restless legs syndrome G25.81 ; Asthma with acute exacerbation J45.901 and Bronchitis J40 [facility] [id number] [place] [address] 91469 -3357 Feb, Upper respiratory symptom R09.89 [facility] [address] 94298- 4952 Feb, Restless leg G25.81 and Asthma J45.909 [facility] [address] 66340- 6004 Dec, Rupture of tendon of right shoulder S46.911A [facility] [address] 75020- 0882 Dec, Sacroiliac joint pain M53.3 [facility] [address] 50966- 6504 30 Nov, 2014 [facility] [address] 47566- 9396 28 Nov, 2014 Lumbago of lumbosacaral region with sciatica 724.2 and Sacroiliitis 720.2 [facility] [id number] [place] [address] 68633- 4161 Nov, Influenza vaccine administered V04.81 [facility] [address] 40194- 9881 Nov, [facility] [address] 64273- 0441 Nov, [facility] [address] 86303- 8767 18 Nov, 2014 Thyroid function test abnormal 794.5 and Thyroid antibody positive 795.79 [facility] [id number] [place] [address] 12232- 5654 16 Nov, 2014 Hypothyroidism 244.9 ; Thyroid antibody positive 795.79 and Right shoulder pain 719.41 [facility] [address] [address]- 8062 Oct, [facility] [id number] [place] [address] 52257- 8965 Oct, Thyroid function test abnormal 794.5 [facility] [id number] [place] [address] 46797- 0598 Oct, Hypertension 401.9 and Bilateral leg pain 729.5 [facility] [id number] [place] [address] 86297- 6573 Oct, [facility] [id number] [place] [address] 14126- 5604 Oct, Bilateral leg pain 729.5 and Hypertension 401.9 [facility] [id number] [place] [address] 65938- 2982 Sep, Bilateral leg pain 729.5 ; Hypertension 401.9 and Edema 782.3 [facility] [id number] [place] [address] 36150- 7572 Aug, Unspecified hereditary and idiopathic peripheral neuropathy 356.9 and Arthritis 716.90 [facility] [id number] [place] [address] 90687- 3052 Aug, [facility] [id number] [place] [address] 78296- 4467 July, [facility] [id number] [place] [address] 59304- 9006 Jun, [facility] [id number] [place] [address] 54462- 1163 Jun, [facility] [id number] [place] [address] 34974- 0281 Jun, [facility] [address] [address]- 7707 May, [facility] [address] [place] [address]- 6958 25 May, 2014 [facility] [place] [facility] [address] [id number] [place] [address]- 3585 24 May, 2014 [facility] [place] [facility] [address] [id number] [place] [address]- 4438 24 May, 2014 [facility] [place] [facility] [address] [id number] [place] [address]- 4633 16 May, 2014 [facility] [place] [facility] [address] [id number] [place] [address]- 9073 16 May, 2014 [facility] [place] [facility] [address] [id number] [place] [address]- 0033 May, [facility] [place] [facility] [address] [facility] [id number] [place] [address]- 2678 10 May, 2014 [facility] [place] [facility] [address] [facility] [id number] [place] [address]- 5497 04 May, 2014 [facility] [place] [facility] [address] [facility] [id number] [place] [address]- 7020 May, [facility] [place] [facility] [address] [id number] [place] [address]- 3307 May, [facility] [place] [facility] [address] [facility] [id number] [place] [address]- 8208 Apr, 2014 [facility] [place] [facility] [address] [id number] [place] [address]- 8942 Apr, 2014 [facility] [place] [facility] [address] [facility] [id number] [place] [address]- 6372 Apr, 2014 [facility] [place] [facility] [address] [id number] [place] [address]- 0293 Apr, 2014 [facility] [place] [facility] [address] [facility] [id number] [place] [address]- 6679 17 Apr, 2014 [facility] [place] [facility] [address] [facility] [id number] [place] [address]- 7769 Apr, [facility] [place] [facility] [address] [id number] [place] [address]- 9658 Apr, [facility] [place] [facility] [address] [id number] [place] [address]- 5868 Apr, [facility] [place] [facility] [address] [id number] [place] [address]- 4256 Mar, [facility] [place] [facility] [address] [id number] [place] [address]- 4899 Mar, [facility] [place] [facility] [address] [id number] [place] [address]- 7286 Mar, [facility] [place] [facility] [address] [id number] [place] [address]- 4187 Mar, [facility] [place] [facility] [address] [id number] [place] [address]- 5805 Mar, [facility] [place] [facility] [address] [id number] [place] [address]- 5669 Mar, [facility] [place] [facility] [address] [id number] [place] [address]- 8120 Feb, [facility] [place] [facility] [address] [id number] [place] [address]- 2871 Feb, [facility] [place] [facility] [address] [id number] [place] [address]- 2555 Feb, [facility] [place] [facility] [address] [id number] [place] [address]- 2731 Feb, [facility] [place] [facility] [address] [id number] [place] [address]- 7093 Feb, [facility] [place] [facility] [address] [id number] [place] [address]- 9252 Feb, [facility] [place] [facility] [address] [id number] [place] [address]- 6584 Feb, [facility] [place] [facility] [address] [id number] [place] [address]- 0899 22 Feb, 2014 [facility] [place] [facility] [address] [id number] [place] [address]- 6722 Feb, [facility] [place] [facility] [address] [id number] [place] [address]- 9236 Feb, [facility] [place] [facility] [address] [id number] [place] [address]- 5956 Feb, [facility] [place] [facility] [address] [id number] [place] [address]- 0365 Feb, [facility] [place] [facility] [address] [id number] [place] [address]- 6639 Feb, [facility] [place] [facility] [address] [id number] [place] [address]- 9924 15 Feb, 2014 [facility] [place] [facility] [address] [id number] [place] [address]- 6092 15 Feb, 2014 [facility] [place] [facility] [address] [id number] [place] [address]- 2377 Feb, [facility] [place] [facility] [address] [id number] [place] [address]- 8216 Feb, [facility] [place] [facility] [address] [id number] [place] [address]- 1968 Feb, [facility] [place] [facility] [address] [id number] [place] [address]- 0127 Feb, [facility] [place] [facility] [address] [id number] [place] [address]- 3810 Feb, [facility] [place] [facility] [address] [id number] [place] 4750 Feb, [facility] [place] [facility] [address] [id number] [place] 4061 Feb, [facility] [place] [facility] [address] [id number] [place] [address]- 8886 Feb, [facility] [place] [facility] [address] [id number] [place] [address]- 0082 Jan, [facility] [place] [facility] [address] [id number] [place] 9934 Jan, [facility] [place] [facility] [address] [id number] [place] [address]- 2900 Jan, [facility] [place] [facility] [address] [id number] [place] [address]- 1722 Jan, [facility] [place] [facility] [address] [id number] [place] [address]- 5102 Jan, [facility] [place] [facility] [address] [id number] [place] [address]- 9810 Jan, [facility] [place] [facility] [address] [id number] [place] [address]- 4432 Jan, [facility] [place] [facility] [address] [id number] [place] [address]- 5049 Jan, [facility] [place] [facility] [address] [id number] [place] [address]- 7822 Jan, [facility] [place] [facility] [address] [id number] [place] [address]- 4500 Dec, [facility] [place] [facility] [address] [id number] [place] [address]- 3971 Dec, [facility] [place] [facility] [address] [id number], [place] [address]- 8559 Dec, [facility] [place] [facility] [address] [id number] [place] 7172 Dec, [facility] [place] [facility] [address] [id number] [place] [address]- 8253 Dec, [facility] [place] [facility] [address] [id number] [place] 7013 Dec, [facility] [place] [facility] [address] [id number] [place] [address]- 0093 Dec, [facility] [place] [facility] [address] [id number] [place] [address]- 8419 Dec, [facility] [place] [facility] [address] [id number] [place] [address]- 6650 Dec, [facility] [place] [facility] [address] [id number] [place] [address]- 0382 Dec, [facility] [place] [facility] [address] [id number] [place] [address]- 3198 Nov, [facility] [place] [facility] [address] [id number] [place] [address]- 7996 Nov, [facility] [place] [facility] [address] [id number] [place] [address]- 8896 Nov, [facility] [place] [facility] [address] [id number] [place] [address]- 9572 Nov, [facility] [place] [facility] [address] [id number] [place] [address]- 8310 Nov, [facility] [place] [facility] [address] [id number] [place] [address]- 5887 Nov, [facility] [place] [facility] [address] [id number] [place] [address]- 0865 Nov, [facility] [place] [facility] [address] [id number] [place] [address]- 1153 Nov, [facility] [place] [facility] [address] [id number] [place] [address]- 8265 Nov, [facility] [place] [facility] [address] [id number] [place] [address]- 0064 Nov, [facility] [place] [facility] [address] [id number] [place] [address]- 1961 Oct, [facility] [place] [facility] [address] [id number] [place] [address]- 4585 Oct, [facility] [place] [facility] [address] [id number] [place] [address]- 9849 Oct, [facility] [place] [facility] [address] [id number] [place] [address]- 1105 Oct, [facility] [place] [facility] [address] [id number] [place] [address]- 4542 Oct, [facility] [place] [facility] [address] [id number] [place] [address]- 8686 Oct, [facility] [place] [facility] [address] [id number] [place] [address]- 2100 Oct, [facility] [place] [facility] [address] [id number] [place] [address]- 7539 Oct, [facility] [place] [facility] [address] [id number] [place] [address]- 0533 Oct, [facility] [place] [facility] [address] [id number] [place] [address]- 9704 Oct, [facility] [place] [facility] [address] [id number] [place] [address]- 1557 Sep, [facility] [place] [facility] [address] [id number] [place] [address]- 2741 Sep, [facility] [place] [facility] [address] [id number] [place] [address]- 2770 Aug, [facility] [place] [facility] [address] [id number] [place] [address]- 1330 Aug, [facility] [place] [facility] [address] [id number] [place] [address]- 8994 Aug, [facility] [place] [facility] [address] [id number] [place] [address]- 1358 Aug, [facility] [place] [facility] [address] [id number] [place] [address]- 5151 Aug, [facility] [place] [facility] [address] [id number] [place] [address]- 6122 Aug, [facility] [place] [facility] [address] [id number] [place] [address]- 6291 Aug, [facility] [place] [facility] [address] [id number] [place] [address]- 2575 Aug, [facility] [place] [facility] [address] [id number] [place] [address]- 8129 Aug, [facility] [place] [facility] [address] [id number] [place] [address]- 7065 Aug, [facility] [place] [facility] [address] [id number] [place] [address]- 7835 Aug, [facility] [place] [facility] [address] [id number] [place] [address]- 6633 Aug, [facility] [place] [facility] [address] [id number] [place] [address]- 8713 July, [facility] [place] [facility] [address] [id number] [place] [address]- 5177 July, [facility] [place] [facility] [address] [id number] [place] [address]- 5310 July, [facility] [place] [facility] [address] [id number] [place] [address]- 0828 July, [facility] [place] [facility] [address] [id number] [place] [address]- 4647 July, [facility] [place] [facility] [address] [id number] [place] [address]- 2487 July, [facility] [place] [facility] [address] [id number] [place] [address]- 1080 July, [facility] [place] [facility] [address] [id number] [place] [address]- 5367 July, [facility] [place] [facility] [address] [id number] [place] [address]- 4967 Jun, [facility] [place] [facility] [address] [id number], [place] [address]- 2032 14 Jun, 2013 [facility] [place] [facility] [address] [id number] [place] [address]- 1525 27 May, 2013 [facility] [place] [facility] [address] [id number] [place] [address]- 9297 27 May, 2013 [facility] [place] [facility] [address] [facility] [id number] [place] [address] 27 May, 2013 [facility] [place] [facility] [address] [id number] [place] [address] 27 May, 2013 [facility] [place] [facility] [address] [id number] [place] [address] 14 May, 2013 [facility] [place] [facility] [address] [facility] [id number] [place] [address] May, [facility] [place] [facility] [address] [facility] [id number] [place] [address] May, [facility] [place] [facility] [address] [facility] [id number] [place] [address] May, [facility] [place] [facility] [address] [facility] [id number] [place] [address] Apr, [facility] [place] [facility] [address] [facility] [id number] [place] [address] Apr, [facility] [place] [facility] [address] [facility] [id number] [place] [address] Apr, [facility] [place] [facility] [address] [facility] [id number] [place] [address] Apr, [facility] [place] [facility] [address] [id number] [place] [address] Apr, [facility] [place] [facility] [address] [facility] [id number] [place] [address] Apr, [facility] [place] [facility] [address] [facility] [id number] [place] [address] Apr, [facility] [place] [facility] [address] [id number] [place] [address] Apr, [facility] [place] [facility] [address] [id number] [place] [address] Mar, [facility] [place] [facility] [address] [id number] [place] [address] Mar, [facility] [place] [facility] [address] [id number] [place] [address] Mar, [facility] [place] [facility] [address] [id number] [place] [address] Mar, [facility] [place] [facility] [address] [id number] [place] [address] Mar, [facility] [place] [facility] [address] [id number] [place] [address] Mar, [facility] [place] [facility] [address] [id number], [place] [address] Mar, [facility] [place] [facility] [address] [id number] [place] [address]- 2967 Mar, [facility] [place] [facility] [address] [id number], [place] [address] Mar, [facility] [place] [facility] [address] [id number], [place] [address] Mar, [facility] [place] [facility] [address] [id number], [place] [address] Feb, [facility] [place] [facility] [address] [id number], [place] [address] Feb, [facility] [place] [facility] [address] [id number], [place] [address] Feb, [facility] [place] [facility] [address] [id number], [place] [address] Feb, [facility] [place] [facility] [address] [id number], [place] [address] Jan, [facility] [place] [facility] [address] [id number] [place] [address] Jan, [facility] [place] [facility] [address] [id number], [place] [address] 30 Dec, 2012 [facility] [place] [facility] [address] [id number] [place] [address] 30 Dec, 2012 [facility] [place] [facility] [address] [id number] [place] [address]- [address] Dec, [facility] [place] [facility] [address] [id number] [place] [address]- [address] Dec, [facility] [place] [facility] [address] [id number] [place] [address]- [address] Dec, [facility] [place] [facility] [address] [id number], [place] [address] Dec, [facility] [place] [facility] [address] [id number], [place] [address] Dec, [facility] [place] [facility] [address] [id number], [place] [address] 14 Dec, 2012 [facility] [place] [facility] [address] [facility] [id number], [place] [address] Dec, [facility] [place] [facility] [address] [id number], [place] [address] Dec, [facility] [place] [facility] [address] [id number], [place] [address] Dec, [facility] [place] [facility] [address] [id number], [place] [address] Dec, [facility] [place] [facility] [address] [facility] [id number][place] [address] Dec, [facility] [place] [facility] [address] [id number], [place] [address] Nov, [facility] [place] [facility] [address] [id number] [place] [address] 24 Nov, 2012 [facility] [place] [facility] [address] [id number] [place] [address] Nov, [facility] [place] [facility] [address] [id number] [place] [address] Nov, [facility] [place] [facility] [address] [id number] [place] [address] Nov, [facility] [place] [facility] [address] [id number] [place] [address] Oct, [facility] [place] [facility] [address] [id number] [place] [address] Oct, [facility] [place] [facility] [address] [id number] [place] [address] Oct, [facility] [place] [facility] [address] [id number] [place] [address] Oct, [facility] [place] [facility] [address] [id number] [place] [address] Oct, [facility] [place] [facility] [address] [id number] [place] [address] Oct, [facility] [place] [facility] [address] [id number] [place] [address] Oct, [facility] [place] [facility] [address] [id number] [place] [address] Sep, [facility] [place] [facility] [address] [id number] [place] [address] Sep, [facility] [place] [facility] [address] [id number] [place] [address] Sep, [facility] [place] [facility] [address] [id number] [place] [address] Aug, [facility] [place] [facility] [address] [id number] [place] [address] Aug, [facility] [address] [id number] [place] [address] Aug, [facility] [place] [facility] [address] [id number] [place] [address] Aug, [facility] [address] [id number] [place] [address] July, [facility] [place] [facility] [address] [id number] [place] [address] July, [facility] [address] [id number] [place] [address] July, [facility] [address] [id number] [place] [address] July, [facility] [place] [facility] [address] [id number] [place] [address] Jun, [facility] [place] [facility] [address] [id number] [place] [address] Jun, [facility] [place] [facility] [address] [id number] [place] [address] May, [facility] [place] [facility] [address] [id number] [place] [address] May, [facility] [place] [facility] [address] [id number] [place] [address] Apr, [facility] [place] [facility] [address] [id number] [place] [address] Apr, [facility] [place] [facility] [address] [id number] [place] [address] Feb, [facility] [place] [facility] [address] [id number] [place] [address] Feb, [facility] [place] [facility] [address] [id number] [place] [address] Feb, [facility] [place] [facility] [address] [id number] [place] [address] Feb, [facility] [address] [id number] [place] [address] Feb, [facility] [place] [facility] [address] [id number] [place] [address] Feb, [facility] [place] [facility] [address] [id number] [place] [address] Jan, [facility] [place] [facility] [address] [id number] [place] [address] Jan, [facility] [place] [facility] [address] [id number] [place] [address] Jan, [facility] [place] [facility] [address] [id number] [place] [address] Jan, [facility] [place] [facility] [address] [id number] [place] [address] Jan, [facility] [place] [facility] [address] [id number] [place] [address] Jan, [facility] [place] [facility] [address] [id number] [place] [address] Jan, [facility] [place] [facility] [address] [id number] [place] [address] Jan, [facility] [place] [facility] [address] [id number] [place] [address] 25[address] Jan, [facility] [place] [facility] [address] [id number] [place] [address] Jan, [facility] [place] [facility] [address] [id number] [place] [address] Jan, [facility] [place] [facility] [address] [id number] [place] [address] Jan, [facility] [place] [facility] [address] [id number] [place] [address] Jan, [facility] [place] [facility] [address] [id number] [place] [address] Dec, [facility] [place] [facility] [address] [id number] [place] [address] 77[address] Dec, [facility] [place] [facility] [address] [id number] [place] [address] 2549 Dec, [facility] [place] [facility] [address] [id number] [place] [address] 2545 Dec, [facility] [place] [facility] [address] [id number] [place] [address] 1261 Dec, [facility] [place] [facility] [address] [id number] [place] [address]- [address] Dec, [facility] [place] [facility] [address] [id number] [place] [address] Dec, [facility] [place] [facility] [address] [id number] [place] [address]- 1845 Nov, [facility] [place] [facility] [address] [id number] [place] [address]- 9569 Nov, [facility] [place] [facility] [address] [id number] [place] [address] 4725 Oct, [facility] [place] [facility] [address] [id number] [place] [address] 2548 Oct, [facility] [place] [facility] [address] [id number], [place] [address]- [address] Sep, [facility] [place] [facility] [address] [id number] [place] [address]- 2542 Sep, [facility] [place] [facility] [address] [id number] [place] [address]- 2546 Sep, [facility] [place] [facility] [address] [id number] [place] [address]- 2543 Sep, [facility] [place] [facility] [address] [id number], [place] [address] July, [facility] [address] [id number] [place] [address] July, [facility] [place] [facility] [address] [id number] [place] [address] 2050 July, [facility] [place] [facility] [address] [id number] [place] [address]- 1646 Jun, [facility] [place] [facility] [address] [id number] [place] [address]- 3[address] Jun, [facility] [place] [facility] [address] [id number] [place] [address]39 Jun, [facility] [place] [facility] [address] [id number] [place] [address]- 1671 16 Jun, 2011 [facility] [address] [id number] [place] [address]- 78[address] Jun, [facility] [place] [facility] [address] [id number] [place] [address] 4809 Jun, [facility] [address] [id number] [place] [address]- 2357 Jun, [facility] [place] [facility] [address] [id number] [place] [address]- 1845 Jun, [facility] [place] [facility] [address] [id number] [place] [address]- 0135 Jun, [facility] [place] [facility] [address] [id number] [place] [address]- 8917 May, [facility] [place] [facility] [address] [id number] [place] [address]- 5067 May, [facility] [place] [facility] [address] [id number] [place] [address]- 9594 May, [facility] [place] [facility] [address] [id number] [place] [address]- 6083 May, [facility] [place] [facility] [address] [id number] [place] [address]- 2546 May, [facility] [address] [id number] [place] [address]- 5066 Apr, [facility] [place] [facility] [address] [id number] [place] [address]- 2546 Mar, [facility] [place] [facility] [address] [id number] [place] [address]- 2546 Mar, [facility] [place] [facility] [address] [id number] [place] [address]- 2546 Feb, [facility] [place] [facility] [address] [id number] [place] [address]- 2546 Feb, [facility] [place] [facility] [address] [id number] [place] [address]- 2546 Feb, [facility] [place] [facility] [address] [id number] [place] [address]- 2546 Jan, [facility] [place] [facility] [address] [id number] [place] [address]- 8870 Dec, [facility] [place] [facility] [address] [id number] [place] [address]- 2356 Dec, [facility] [place] [facility] [address] [id number] [place] [address]- 2546 Dec, [facility] [place] [facility] [address] [id number] [place] [address]- 2546 July, [facility] [place] [facility] [address] [id number] [place] [address]- 2546 May, [facility] [place] [facility] [address] [id number] [place] [address]- 2546 Feb, [facility] [place] [facility] [address] [id number] [place] [address]- 2546 Feb, [facility] [place] [facility] [address] [id number] [place] [address]- [address] 09 Feb, 2010 [facility] [place] [facility] [address] [id number] [place] [address]- 4[address] 12 Jan, 2010 [facility] [place] [facility] [address] [id number] [place] [address]- [address] 26 Dec, 2009 [facility] [place] [facility] [address] [id number] [place] [address]- 8978 13 Dec, 2009 [facility] [place] [facility] [address] [id number] [place] [address]- 6891 Oct, [facility] [place] [facility] [address] [id number] [place] [address]- 0033 July, [facility] [place] [facility] [address] [id number] [place] [address]- 7542 Apr, [facility] [place] [facility] [address] [id number] [place] [address]- 6[address] Mar, [facility] [place] [facility] [address] [id number], [place] [address]- [address] Feb, [facility] [place] [facility] [address] [id number], [place] [address]- 69[address] Feb, [facility] [place] [facility] [address] [id number], [place] [address]- 8500 Feb, [facility] [place] [facility] [address] [id number], [place] [address]- 6739 Feb, [facility] [place] [facility] [address] [id number], [place] [address]- 2120 Feb, [facility] [place] [facility] [address] [id number], [place] [address]- 6693 Jan, [facility] [place] [facility] [address] [id number], [place] [address]- 7525 Jan, [facility] [place] [facility] [address] [facility] [id number], [place] [address]- [address] Dec, [facility] [place] [facility] [address] [facility] [id number] [place] [id number] 14 Nov, 2008 IMMUNIZATIONS No Known Immunizations SOCIAL HISTORY Never Assessed REASON FOR VISIT Transition of Care, Needs PHQ2, AUDIT [employer]-a[facility] PLAN OF CARE Activity Details Follow Up 3 Months, prn Reason:CHM/HTN VITAL SIGNS Height 70 in 2017-10-21 Weight 330.8 lbs 2017-10-21 Temperature 99 degrees Fahrenheit 2017-10-21 Heart Rate 100 bpm 2017-10-21 Respiratory Rate 20 2017-10-21 Oximetry 95 % 2017-10-21 BMI 47.46 kg/m2 2017-10-21 Blood pressure systolic 158 mmHg 2017-10-21 Blood pressure diastolic 78 mmHg 2017-10-21 MEDICATIONS Medication Instructions Dosage Frequency Start Date End Date Duration Status Albuterol Sulfate (2.5 MG/3ML) 0.083% Inhalation Three times a day 3 ml as needed 8h Active Ventolin HFA 90 mcg/actuation 2 puffs by Inhalation route 4 times per day PRN keep on file don't fill today Feb, Active Hydrochlorothiazide 50 MG TAKE ONE TABLET BY MOUTH DAILY Active Probiotic - Active Aspirin 81 mg 1 tablet by Oral route 1 time per day Feb, Active Fluticasone Propionate 50 MCG/ACT Nasally daily prn 1 spray in each nostril Active Norvasc 10 mg TAKE ONE TABLET BY MOUTH DAILY Active Gabapentin 300 MG Orally 1 at HS TAKE ONE CAPSULE BY MOUTH DAILY AT NIGHT 16 Active Levofloxacin 750 MG Orally Once a day 1 tablet 24h Oct, Oct, 05 days Active Fish Oil 1000 MG Orally Twice a day 1 capsule 12h Active C-PAP Machine Active Omeprazole 20 MG TAKE ONE CAPSULE BY MOUTH TWICE DAILY. Active Meloxicam 15 mg Orally Once a day TAKE ONE TABLET BY MOUTH ONCE DAILY. 24h 30 days Active Vitamin D3 1,000 unit 2 capsule by Oral route 1 time per day Dec, Active Quinapril HCl 20 MG TAKE THREE TABLETS BY MOUTH ONCE DAILY Active Levothyroxine Sodium 200 MCG TAKE ONE TABLET BY MOUTH DAILY Active RESULTS Name Result Date Reference Range Xray : Chest 2 View (IN HOUSE) 2017-10-21 PROCEDURES Procedure Date Ordered Result Body Site X-RAY EXAM CHEST 2 VIEWS Oct 21, 2017 [facility] VISIT ESTABLISHED PATIENT Oct 21, 2017 INSTRUCTIONS MEDICATIONS ADMINISTERED No Known Medications [...] History left knee replacement 2018 Hospitalization History [facility], operated by [facility]- Right knee surgery. discharged 01/27/17 Hospitalization History [facility], operated by [facility]- Left knee replacement 06/16/2017
--- OUTSIDE RECORDS SUMMARY | 2018-02-11 11:07 | XMS REPORT ---
Author Author TAMMY COPELAND [facility] Address [address] [place] [address] Care Team Providers Care Glass Bender Name Role Phone MIN TAMMY Unavailable PROBLEMS Type Condition ICD9-CM Code IEU45-BO Code Onset Dates Condition Status SNOMED Code Problem Arthritis M19.90 Active 5558148 Problem Allergic state, subsequent encounter T78.40XD Active 350593856 Problem Hypothyroidism (acquired) E03.9 Active 136153502 Problem Mild intermittent asthma with exacerbation J45.21 Active 819440155 Problem COPD with exacerbation J44.1 Active 884034861 Problem Obstructive sleep apnea (adult) (pediatric) G47.33 Active 90698639 Problem Dependence on other enabling machines and devices Z99.89 Active 095524890 Problem Body mass index (BMI) of 45.0-49.9 in adult Z68.42 Active 531883637 Problem Morbid (severe) obesity due to excess calories E66.01 Active 224122767 ALLERGIES No Information ENCOUNTERS Encounter Location Date Diagnosis [place] [id number] [place] [address] 27611- 5850 Oct, Prediabetes R73.03 [place] [address] [place] [id number] [place] [address] 38903- 0323 Oct, Essential hypertension I10 and Hypothyroidism (acquired) E03.9 [facility] [id number] [place] [address] 50933- 6026 Oct, [place] [address] [place] [id number] [place] [address] 82633- 3859 Oct, [place] [address] [id number] [place] [address] 24345- 1506 Oct, Essential hypertension I10 ; Hypothyroidism (acquired) [...] sleep apnea (adult) (pediatric) G47.33 [facility] [id number] [place] [address] 40305 -0437 Sep, Mild intermittent asthma with exacerbation J45.21 [facility] [id number] [place] [address] 58500- 5260 Sep, [place] [address] 46014- 8065 Sep, Long-term use of high-risk medication Z79.899 [place] [address] 98654- 5136 Sep, Long-term use of high-risk medication Z79.899 [facility] [id number] [place] [address] 35919- 9279 July, [facility] [id number] [place] [address] 07899- 7212 Jun, [facility] [id number] [place] [address] 40773- 5163 May, Asthma J45.909 [facility] [address] 48313- 5725 May, [facility] [id number] [place] [address] 31591- 2654 27 Apr, 2017 Pre-op evaluation Z01.818 ; Allergic state, subsequent encounter T78.40XD and BMI 45.0-49.9, adult Z68.42 [facility] [id number] [place] [address] 12353- 4834 Mar, [place] [address] 43437- 7171 Mar, [facility] [address] 98878 -3181 Mar, Cough R05 ; Acute nasopharyngitis J00 and BMI 45.0-49.9, adult Z68.42 [facility] [address] 88275- 9519 Mar, [facility] [address] 71323- 6640 Jan, Ganglion cyst of finger of right hand M67.441 [place] [address] 36646- 4815 Dec, [place] [address] 17192- 9800 Dec, Change in vision H53.9 ; Arthritis M19.90 ; Essential hypertension I10 ; GERD with esophagitis K21.0 ; Hypothyroidism (acquired) E03.9 and Ganglion cyst of joint of finger of left hand M67.442 [place] [address] 65133- 0179 15 Nov, 2016 Encounter for immunization Z23 [facility] [address] 89251- 4059 07 Nov, 2016 [facility] [address] 67831- 7593 Sep, [facility] [address] 82200- 1024 Aug, [place] [address] 80894- 8202 July, Cyst of joint of right hand M25.841 [place] [address] 18636- 9016 May, [place] [address] 96280- 5132 May, Fever, unspecified R50.9 and Influenza A J10.1 [place] [address] 87002- 0070 May, Left shoulder pain, unspecified chronicity M25.512 [place] [address] 16538- 7144 Apr, [place] [address] 35376- 0926 Apr, Infraspinatus tendon tear, left, subsequent encounter S46.812D and Supraspinatus tendon tear, left, subsequent encounter S46.812D [place] [address] 87313- 5006 Apr, [place] [address] 35779- 0405 Mar, Left shoulder pain, unspecified chronicity M25.512 [place] [address] [place] [id number] [place] [address] 95917- 0711 Mar, [place] [address] [place] [id number] [place] [address] 18271- 3042 Mar, Left shoulder pain, unspecified chronicity M25.512 [place] [address] [place] [id number] [place] [address] 51484- 0224 Feb, Chronic superficial gastritis without bleeding K29.30 ; Left upper quadrant pain R10.12 ; Essential hypertension I10 ; Dyspnea on exertion R06.09 and Palpitations R00.2 [place] [address] [place] [id number] [place] [address] 65109- 7919 Jan, Colon polyps K63.5 [place] [address] [place] [id number] [place] [address] 92897- 7621 Jan, Colon polyps K63.5 [place] [address] [place] [id number] [place] [address] 69479- 4975 Dec, [facility] [id number] [place] [address] 48694 -3550 Dec, GERD with esophagitis K21.0 [facility] [address] [place] [id number] [place] [address] 74363- 8442 Nov, Arthritis pain M19.90 ; Colon polyps K63.5 ; Seasonal allergic rhinitis due to pollen J30.1 and Encounter for immunization Z23 [facility] [address] 30122- 9608 Nov, [facility] [address] [place] [id number] [place] [address] 30165- 6347 Oct, [facility] [address] 09220- 8967 Sep, [facility] [address] 96869- 1148 July, [facility] [address] 13621- 5552 July, [facility] [address] [place] [id number] [place] [address] 90187- 1951 July, Asthma with acute exacerbation J45.901 and Bronchitis J40 [facility] [address] [place] [place] [id number] [place] [address] 64095- 3713 Jun, [facility] [id number] [place] [address] 77233- 8996 May, Other specified hypothyroidism E03.8 and 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 [address] 11227 -2222 Feb, Upper respiratory symptom R09.89 [facility] [address] 51776- 6594 Feb, Restless leg G25.81 and Asthma J45.909 [place] [address] 39755- 5748 Dec, Rupture of tendon of right shoulder S46.911A [place] [address] 65797- 4708 Dec, Sacroiliac joint pain M53.3 [place] [address] 59032- 2766 30 Nov, 2014 [place] [address] 91788- 5929 28 Nov, 2014 Lumbago of lumbosacaral region with sciatica 724.2 and Sacroiliitis 720.2 [place] [address] 13301- 2686 Nov, Influenza vaccine administered V04.81 [place] [address] 18014- 3055 Nov, [place] [address] 08679- 3472 Nov, [place] [address] 92338- 2035 18 Nov, 2014 Thyroid function test abnormal 794.5 and Thyroid antibody positive 795.79 [place] [address] 89215- 8925 16 Nov, 2014 Hypothyroidism 244.9 ; Thyroid antibody positive 795.79 and Right shoulder pain 719.41 [place] [address] [place] [id number] [place] [address] 66684- 0133 Oct, [facility] [id number] [place] [address] 52861- 4281 Oct, Thyroid function test abnormal 794.5 [facility] [id number] [place] [address] 65542- 6250 Oct, Hypertension 401.9 and Bilateral leg pain 729.5 [facility] [id number] [place] [address] 77256- 6663 Oct, [facility] [id number] [place] [address] 26511- 3795 Oct, Bilateral leg pain 729.5 and Hypertension 401.9 [facility] [id number] [place] [address] 10435- 6023 Sep, Bilateral leg pain 729.5 ; Hypertension 401.9 and Edema 782.3 [facility] [id number] [place] [address] 98950- 3025 Aug, Unspecified hereditary and idiopathic peripheral neuropathy 356.9 and Arthritis 716.90 [facility] [id number] [place] [address] 70902- 5481 Aug, [facility] [id number] [place] [address] 10600- 9577 July, [facility] [id number] [place] [address] 52177- 3815 Jun, [facility] [id number] [place] [address] 15389- 7523 Jun, [facility] [id number] [place] [address] 80771- 2611 Jun, [facility] [id number] [place] [address] 63129- 4167 May, [facility] [id number] [place] [address] 58687- 2533 May, [facility] [place] [facility] [address] [id number] [place] [address]- 0572 May, [facility] [place] [facility] [address] [id number] [place] [address]- 2038 May, [facility] [place] [facility] [address] [facility] [id number] [place] 4920 May, [facility] [place] [facility] [address] [id number] [place] [address]- 7598 16 May, 2014 [facility] [place] [facility] [address] [id number] [place] [address]- 1089 May, [facility] [place] [facility] [address] [id number] [place] [address]- 0212 May, [facility] [place] [facility] [address] [facility] [id number] [place] [address]- 2456 May, [facility] [place] [facility] [address] [id number] [place] [address]- 1676 May, [facility] [place] [facility] [address] [facility] [id number] [place] [address]- 7658 May, [facility] [place] [facility] [address] [facility] [id number] [place] [address]- 0259 Apr, 2014 [facility] [place] [facility] [address] [facility] [id number] [place] [address]- 5590 Apr, 2014 [facility] [place] [facility] [address] [id number] [place] [address]- 2308 Apr, 2014 [facility] [place] [facility] [address] [id number] [place] [address]- 9426 Apr, 2014 [facility] [place] [facility] [address] [facility] [id number] [place] [address]- 0984 Apr, 2014 [facility] [place] [facility] [address] [facility] [id number] [place] [address]- 6849 Apr, 2014 [facility] [place] [facility] [address] [id number] [place] [address]- 9893 Apr, [facility] [place] [facility] [address] [id number] [place] 8684 Apr, [facility] [place] [facility] [address] [id number] [place] [address]- 1858 Mar, [facility] [place] [facility] [address] [id number] [place] [address]- 6726 Mar, [facility] [place] [facility] [address] [id number] [place] [address]- 7620 Mar, [facility] [place] [facility] [address] [id number] [place] [address]- 4553 Mar, [facility] [place] [facility] [address] [id number] [place] [address]- 6571 Mar, [facility] [place] [facility] [address] [id number] [place] [address]- 0832 Mar, [facility] [place] [facility] [address] [id number] [place] [address]- 2987 Feb, [facility] [place] [facility] [address] [id number] [place] [address]- 8492 Feb, [facility] [place] [facility] [address] [id number] [place] [address]- 0105 Feb, [facility] [place] [facility] [address] [id number] [place] [address]- 8207 Feb, [facility] [place] [facility] [address] [id number] [place] [address]- 8315 Feb, [facility] [place] [facility] [address] [id number] [place] [address]- 2546 Feb, [facility] [place] [facility] [address] [id number] [place] 6660 Feb, [facility] [place] [facility] [address] [id number] [place] [address]- 0220 Feb, [facility] [place] [facility] [address] [id number] [place] [address]- 5576 Feb, [facility] [place] [facility] [address] [id number] [place]- 1696 Feb, [facility] [place] [facility] [address] [id number] [place] 2136 Feb, [facility] [place] [facility] [address] [id number] [place] [address]- 0105 Feb, [facility] [place] [facility] [address] [id number] [place] [address]- 7576 Feb, [facility] [place] [facility] [address] [id number] [place] [address]- 1235 Feb, [facility] [place] [facility] [address] [id number] [place] [address]- 5614 Feb, [facility] [place] [facility] [address] [id number] [place] [address]- 5773 Feb, [facility] [place] [facility] [address] [id number] [place] [address]- 5427 Feb, [facility] [place] [facility] [address] [id number] [place] [address]- 9748 Feb, [facility] [place] [facility] [address] [id number] [place] [address]- 4616 Feb, [facility] [place] [facility] [address] [id number], [place] [address]- 2152 Feb, [facility] [place] [facility] [address] [id number] [place] 2524 Feb, [facility] [place] [facility] [address] [id number] [place] [address]- 5925 Feb, [facility] [place] [facility] [address] [id number] [place] [address]- 0184 Feb, [facility] [place] [facility] [address] [id number] [place] [address]- 5926 Jan, [facility] [place] [facility] [address] [id number] [place] [address]- 0135 Jan, [facility] [place] [facility] [address] [id number] [place] [address]- 4701 Jan, [facility] [place] [facility] [address] [id number] [place] 6212 Jan, [facility] [place] [facility] [address] [id number] [place] [address]- 7965 Jan, [facility] [place] [facility] [address] [id number] [place] [address]- 3083 Jan, [facility] [place] [facility] [address] [id number] [place] [address]- 3411 Jan, [facility] [place] [facility] [address] [id number] [place] [address]- 1012 Jan, [facility] [place] [facility] [address] [id number] [place] [address]- 6614 Jan, [facility] [place] [facility] [address] [id number] [place] [address]- 6475 Dec, [facility] [place] [facility] [address] [facility] [id number] [place] [address]- 7939 Dec, [facility] [place] [facility] [address] [id number] [place] [address]- 3867 Dec, [facility] [place] [facility] [address] [id number] [place] [address]- 0738 Dec, [facility] [place] [facility] [address] [id number] [place] [address]- 0969 Dec, [facility] [place] [facility] [address] [id number] [place] [address]- 2924 Dec, [facility] [place] [facility] [address] [id number] [place] [address]- 8849 Dec, [facility] [place] [facility] [address] [id number] [place] [address]- 7455 Dec, [facility] [place] [facility] [address] [id number] [place] [address]- 3875 Dec, [facility] [place] [facility] [address] [id number] [place] [address]- 2399 Dec, [facility] [place] [facility] [address] [id number] [place] [address]- 7593 Nov, [facility] [place] [facility] [address] [id number] [place] [address]- 8806 Nov, [facility] [place] [facility] [address] [id number] [place] [address]- 4282 Nov, [facility] [place] [facility] [address] [id number] [place] [address]- 1597 Nov, [facility] [place] [facility] [address] [id number] [place] [address]- 9054 Nov, [facility] [place] [facility] [address] [id number] [place] [address]- 4313 Nov, [facility] [place] [facility] [address] [id number] [place] [address]- 2344 Nov, [facility] [place] [facility] [address] [id number] [place] [address]- 4728 Nov, [facility] [place] [facility] [address] [id number] [place] [address]- 8517 Nov, [facility] [place] [facility] [address] [id number] [place] [address]- 0747 Nov, [facility] [place] [facility] [address] [id number] [place] [address]- 0895 Oct, [facility] [place] [facility] [address] [id number] [place] [address]- 3887 Oct, [facility] [place] [facility] [address] [id number] [place] [address]- 0098 Oct, [facility] [place] [facility] [address] [id number] [place] [address]- 2595 Oct, [facility] [place] [facility] [address] [id number] [place] [address]- 2155 Oct, [facility] [place] [facility] [address] [id number] [place] [address]- 2897 Oct, [facility] [place] [facility] [address] [id number] [place] [address]- 0458 Oct, [facility] [place] [facility] [address] [id number] [place] [address]- 0564 Oct, [facility] [place] [facility] [address] [id number] [place] [address]- 5364 Oct, [facility] [place] [facility] [address] [id number] [place] [address]- 5528 Oct, [facility] [place] [facility] [address] [id number] [place] [address]- 1564 Sep, [facility] [place] [facility] [address] [id number] [place] [address]- 8172 Sep, [facility] [place] [facility] [address] [id number] [place] [address]- 4699 Aug, [facility] [place] [facility] [address] [id number] [place] [address]- 8686 Aug, [facility] [place] [facility] [address] [id number] [place] [address]- 8075 Aug, [facility] [place] [facility] [address] [id number] [place] [address]- 2248 Aug, [facility] [place] [facility] [address] [id number] [place] [address]- 9586 Aug, [facility] [place] [facility] [address] [id number] [place] [address]- 1544 Aug, [facility] [place] [facility] [address] [id number] [place] [address]- 8077 Aug, [facility] [address] [id number] [place] [address]- 9367 Aug, [facility] [place] [facility] [address] [id number] [place] [address]- 3513 Aug, [facility] [place] [facility] [address] [id number] [place] [address]- 2102 Aug, [facility] [place] [facility] [address] [id number] [place] [address]- 5616 Aug, [facility] [place] [facility] [address] [id number] [place] [address]- 9926 Aug, [facility] [place] [facility] [address] [id number] [place] [address]- 0068 July, [facility] [place] [facility] [address] [id number] [place] [address] July, [facility] [address] [id number] [place] [address] July, [facility] [place] [facility] [address] [id number] [place] [address] July, [facility] [place] [facility] [address] [id number] [place] [address] July, [facility] [place] [facility] [address] [id number] [place] [address] July, [facility] [place] [facility] [address] [id number] [place] [address] July, [facility] [place] [facility] [address] [id number] [place] [address] July, [facility] [place] [facility] [address] [id number] [place] [address] Jun, [facility] [place] [facility] [address] [id number] [place] [address] Jun, [facility] [place] [facility] [address] [id number] [place] [address] 27 May, 2013 [facility] [place] [facility] [address] [id number] [place] [address] 27 May, 2013 [facility] [place] [facility] [address] [id number] [place] [address] 27 May, 2013 [facility] [place] [facility] [address] [id number] [place] [address] May, [facility] [place] [facility] [address] [id number] [place] [address] 14 May, 2013 [facility] [place] [facility] [address] [id number] [place] [address] May, [facility] [place] [facility] [address] [id number] [place] [address] May, [facility] [place] [facility] [address] [id number] [place] [address] May, [facility] [place] [facility] [address] [id number] [place] [address] Apr, [facility] [place] [facility] [address] [id number] [place] [address] Apr, [facility] [place] [facility] [address] [id number] [place] [address] Apr, [facility] [place] [facility] [address] [id number] [place] [address] Apr, [facility] [place] [facility] [address] [id number] [place] [address] Apr, [facility] [place] [facility] [address] [id number] [place] [address] Apr, [facility] [place] [facility] [address] [id number] [place] [address] Apr, [facility] [place] [facility] [address] [id number] [place] [address] Apr, [facility] [address] [id number] [place] [address] Mar, [facility] [address] [id number] [place] [address] Mar, [facility] [address] [id number] [place] [address] Mar, [facility] [address] [id number] [place] [address] Mar, [facility] [address] [id number] [place] [address] Mar, [facility] [address] [id number] [place] [address] Mar, [facility] [address] [id number] [place] [address] Mar, [facility] [address] [id number] [place] [address] Mar, [facility] [address] [id number] [place] [address] Mar, [facility] [address] [id number] [place] [address]398 Mar, [facility] [address] [id number] [place] [address] Feb, [facility] [address] [id number] [place] [address] Feb, [facility] [place] [facility] [address] [id number] [place] [address] Feb, [facility] [address] [id number] [place] [address] Feb, [facility] [address] [id number] [place] [address] Jan, [facility] [place] [facility] [address] [id number] [place] [address] 2008 Jan, [facility] [place] [facility] [address] [id number] [place] [address] Dec, [facility] [place] [facility] [address] [id number] [place] [address] 30 Dec, 2012 [facility] [place] [facility] [address] [id number] [place] [address] Dec, [facility] [place] [facility] [address] [id number] [place] [address] Dec, [facility] [place] [facility] [address] [id number] [place] [address] Dec, [facility] [place] [facility] [address] [id number] [place] [address] 2013 Dec, [facility] [place] [facility] [address] [id number], [place] [address] Dec, [facility] [place] [facility] [address] [id number] [place] [address] Dec, [facility] [place] [facility] [address] [id number], [place] [address] Dec, [facility] [place] [facility] [address] [id number], [place] [address] Dec, [facility] [place] [facility] [address] [id number], [place] [address] Dec, [facility] [place] [facility] [address] [id number] [place] [address] Dec, [facility] [place] [facility] [address] [id number], [place] [address] Dec, [facility] [place] [facility] [address] [id number], [place] [address] Nov, [facility] [place] [facility] [address] [id number] [place] [address] 24 Nov, 2012 [facility] [address] [id number] [place] [address] Nov, [facility] [place] [facility] [address] [id number] [place] [address] 8867 Nov, [facility] [place] [facility] [address] [id number] [place] [address] Nov, [facility] [place] [facility] [address] [id number] [place] [address] Oct, [facility] [place] [facility] [address] [id number] [place] [address] Oct, [facility] [place] [facility] [address] [id number] [place] [address]- [address] Oct, [facility] [address] [id number] [place] [address]- [address]27 Oct, [facility] [place] [facility] [address] [id number] [place] [address] Oct, [facility] [place] [facility] [address] [id number] [place] [address]- 8945 Oct, [facility] [place] [facility] [address] [id number] [place] [address]121 Oct, [facility] [place] [facility] [address] [id number] [place] [address]137 Sep, [facility] [place] [facility] [address] [id number] [place] [address]- 1877 Sep, [facility] [place] [facility] [address] [id number] [place] [address]- 4299 Sep, [facility] [place] [facility] [address] [id number] [place] [address] 2467 Aug, [facility] [place] [facility] [address] [id number] [place] [address]- 6359 Aug, [facility] [place] [facility] [address] [id number] [place] [address]- 6741 Aug, [facility] [address] [id number] [place] [address]- 4848 Aug, [facility] [place] [facility] [address] [id number] [place] [address]106 July, [facility] [address] [id number] [place] [address]- 8763 July, [facility] [address] [id number] [place] [address]- 78[address] July, [facility] [address] [id number] [place] [address] July, [facility] [address] [id number] [place] [address] 1879 Jun, [facility] [address] [id number] [place] [address] Jun, [facility] [address] [id number] [place] [address]28 May, [facility] [address] [id number] [place] [address] May, [facility] [address] [id number] [place] [address] 8519 Apr, [facility] [address] [id number] [place] [address]- 7837 Apr, [facility] [address] [id number] [place] [address] Feb, [facility] [place] [facility] [address] [id number] [place] [address]- 6157 Feb, [facility] [place] [facility] [address] [id number] [place] [address]237 Feb, [facility] [place] [facility] [address] [id number], [place] [address] Feb, [facility] [place] [facility] [address] [id number] [place] [address]- 0593 Feb, [facility] [place] [facility] [address] [id number] [place] [address] Feb, [facility] [place] [facility] [address] [id number] [place] [address]- 6[address] Jan, [facility] [place] [facility] [address] [id number] [place] [address]- 1077 Jan, [facility] [place] [facility] [address] [id number] [place] [address]- 350[address] Jan, [facility] [place] [facility] [address] [id number] [place] [address]- 5924 Jan, [facility] [place] [facility] [address] [id number] [place] [address]- 4705 Jan, [facility] [place] [facility] [address] [id number] [place] [address]- 9080 Jan, [facility] [place] [facility] [address] [id number] [place] [address]- 5780 Jan, [facility] [place] [facility] [address] [id number] [place] [address]- 8686 Jan, [facility] [place] [facility] [address] [id number], [place] [address] 15 Jan, 2012 [facility] [place] [facility] [address] [id number], [place] [address]- [address] Jan, [facility] [place] [facility] [address] [id number] [place] [address]- 7552 Jan, [facility] [place] [facility] [address] [facility] [id number], [place] [address]- [address] Jan, [facility] [place] [facility] [address] [id number], [place] [address]- 1747 Jan, [facility] [place] [facility] [address] [id number] [place] [address]- 7080 Dec, [facility] [address] [id number] [place] [address]- 3783 Dec, [facility] [place] [facility] [address] [id number] [place] [address]- 1668 Dec, [facility] [address] [id number] [place] [address]- 6537 Dec, [facility] [place] [facility] [address] [id number] [place] [address]- 6055 Dec, [facility] [address] [id number] [place] [address]- 5528 Dec, [facility] [place] [facility] [address] [id number] [place] [address]- 9278 Dec, [facility] [place] [facility] [address] [id number] [place] [address]- 3594 Nov, [facility] [place] [facility] [address] [id number] [place] [address]- 5422 Nov, [facility] [place] [facility] [address] [id number] [place] [address]- 2263 Oct, [facility] [address] [id number] [place] [address]- 0340 Oct, [facility] [place] [facility] [address] [id number] [place] [address]- 5615 Sep, [facility] [place] [facility] [address] [id number] [place] [address]- 2545 Sep, [facility] [place] [facility] [address] [id number] [place] [address]- 6984 Sep, [facility] [place] [facility] [address] [id number] [place] [address]- 2546 Sep, [facility] [place] [facility] [address] [id number] [place] [address]- 2140 July, [facility] [address] [id number] [place] [address]- 4801 July, [facility] [place] [facility] [address] [id number] [place] [address]- 5806 July, [facility] [place] [facility] [address] [id number] [place] [address]- 7941 Jun, [facility] [place] [facility] [address] [id number] [place] [address]- 6576 Jun, [facility] [address] [id number] [place] [address]- 2094 Jun, [facility] [place] [facility] [address] [id number] [place] [address]- 4036 16 Jun, 2011 [facility] [place] [facility] [address] [id number] [place] [address]- 2474 Jun, [facility] [address] [id number] [place] [address]- 7443 Jun, [facility] [place] [facility] [address] [id number] [place] [address]- 6520 Jun, [facility] [place] [facility] [address] [id number] [place] [address]- 5924 Jun, [facility] [place] [facility] [address] [id number] [place] [address]- 6652 Jun, [facility] [place] [facility] [address] [id number], [place] [address]- 1130 May, [facility] [place] [facility] [address] [id number] [place] [address]- 9148 May, [facility] [place] [facility] [address] [id number] [place] [address]- 5656 May, [facility] [place] [facility] [address] [id number] [place] [address]- 3929 May, [facility] [place] [facility] [address] [id number], [place] [address] 2546 May, [facility] [address] [id number] [place] [address]- 4399 Apr, [facility] [place] [facility] [address] [id number] [place] [address]- 6236 Mar, [facility] [place] [facility] [address] [facility] [id number] [place] [address]- 2556 Mar, [facility] [place] [facility] [address] [id number] [place] [address]- 9816 Feb, [facility] [place] [facility] [address] [id number] [place] [address]- 2062 Feb, [facility] [place] [facility] [address] [facility] [id number] [place] [address]- 1456 Feb, [facility] [address] [facility] [id number] [place] [address]- 2835 Jan, [facility] [place] [facility] [address] [facility] [id number] [place] [address]- 7632 Dec, [facility] [place] [facility] [address] [facility] [id number] [place] [address]- 1247 Dec, [facility] [place] [facility] [address] [facility] [id number] [place] [address]- 3256 Dec, [facility] [place] [facility] [address] [facility] [id number] [place] [address]- 1072 July, [facility] [place] [facility] [address] [id number] [place] [address] 2546 May, [facility] [place] [facility] [address] [id number] [place] [address]- 5496 Feb, [facility] [place] [facility] [address] [facility] [id number] [place] [address] 2546 Feb, [facility] [place] [facility] [address] [facility] [id number] [place] [address]- 8206 Feb, [facility] [place] [facility] [address] [id number] [place] [address]- 1725 12 Jan, 2010 [facility] [place] [facility] [address] [id number] [place] [address]- 3456 26 Dec, 2009 [facility] [place] [facility] [address] [id number] [place] [address] 2546 13 Dec, 2009 [facility] [place] [facility] [address] [id number] [place] [address]- 6486 Oct, [facility] [place] [facility] [address] [id number] [place] [address]- 4016 July, [facility] [place] [facility] [address] [id number] [place] [address]- 3580 18 Apr, 2009 [facility] [place] [facility] [address] [id number] [place] [address]- 6485 Mar, [facility] [place] [facility] [address] [id number] [place] [address]- 4333 18 Feb, 2009 [facility] [place] [facility] [address] [id number] [place] [address]- 0793 18 Feb, 2009 [facility] [place] [facility] [address] [id number] [place] [address]- 6102 03 Feb, 2009 [facility] [place] [facility] [address] [facility] [id number] [place] [address]- 3190 02 Feb, 2009 [facility] [place] [facility] [address] [id number] [place] [address] 2547 02 Feb, 2009 [facility] [place] [facility] [address] [id number] [place] [address]- 4892 18 Jan, 2009 [facility] [place] [facility] [address] [id number] [place] [address] 2546 18 Jan, 2009 [facility] [place] [facility] [address] [id number] [place] [address] 2543 20 Dec, 2008 [facility] [place] [facility] [address] [id number] [place] [address] 5417 14 Nov, 2008 IMMUNIZATIONS No Known Immunizations SOCIAL HISTORY Never Assessed REASON FOR VISIT refill PLAN OF CARE VITAL SIGNS MEDICATIONS Medication Instructions Dosage Frequency Start Date End Date Duration Status Meloxicam 15 mg Orally Once a day TAKE ONE TABLET BY MOUTH ONCE DAILY. 24h 30 days Active RESULTS No Results PROCEDURES No Known [...] History left knee replacement 2018 Hospitalization History [facility]- Right knee surgery. discharged 01/27/17 Hospitalization History [facility]- Left knee replacement 06/16/2017
--- OUTSIDE RECORDS SUMMARY | 2018-02-11 11:07 | XMS REPORT ---
Author Author BOO Guzmán [facility] Address [address] [place] [address] Care Team Providers Care Chemistry Instructor Name Role Phone BOO Guzmán Unavailable PROBLEMS Type Condition ICD9-CM Code ZKL60-QA Code Onset Dates Condition Status SNOMED Code Problem Arthritis M19.90 Active 1360375 Problem Allergic state, subsequent encounter T78.40XD Active 060242904 Problem Hypothyroidism (acquired) E03.9 Active 314918918 Problem Mild intermittent asthma with exacerbation J45.21 Active 915816776 Problem COPD with exacerbation J44.1 Active 857402319 Problem Obstructive sleep apnea (adult) (pediatric) G47.33 Active 85482899 Problem Dependence on other enabling machines and devices Z99.89 Active 251187381 Problem Body mass index (BMI) of 45.0-49.9 in adult Z68.42 Active 744571403 Problem Morbid (severe) obesity due to excess calories E66.01 Active 373872059 ALLERGIES Substance Reaction Event Type Date Status Celebrex nausea Drug Allergy Sep, Active ENCOUNTERS Encounter Location Date Diagnosis [facility] [address], [place] [address] Oct, Prediabetes R73.03 [facility] [address], [place] [address] Oct, Essential hypertension I10 and Hypothyroidism (acquired) E03.9 [facility] [id number] [place] [address]3248- 3866 Oct, [facility] [address], [place] [address] Oct, [facility] [id number] [place] [address] 77486- 7717 Oct, Essential hypertension I10 ; Hypothyroidism (acquired) [...] and Obstructive sleep apnea (adult) (pediatric) G47.33 [facility] [id number] [place] [address]43 -2296 Sep, Mild intermittent asthma with exacerbation J45.21 [facility] [address] [address] Sep, [facility] [address] [address] 6540 Sep, Long-term use of high-risk medication Z79.899 [facility] [address] [address]- 04[address] Sep, Long-term use of high-risk medication Z79.899 [facility] [address] [address]47- 2113 July, [facility] [address] 91869- [address] Jun, [facility] [address] 02385- 3750 May, Asthma J45.909 [facility] [address] 13306- 8682 May, [facility] [address] [address]53- 1703 27 Apr, 2017 Pre-op evaluation Z01.818 ; Allergic state, subsequent encounter T78.40XD and BMI 45.0-49.9, adult Z68.42 [facility] [address] 47827- 6847 Mar, [facility] [address] [address]- 8762 Mar, [facility] [address] [address] Mar, Cough R05 ; Acute nasopharyngitis J00 and BMI 45.0-49.9, adult Z68.42 [place] [address] 90482- 8582 Mar, [facility] [address] 17900- 9800 Jan, Ganglion cyst of finger of right hand M67.441 [place] [address] [address]- 06[address] Dec, [place] [address] [address]05- 8113 Dec, Change in vision H53.9 ; Arthritis M19.90 ; Essential hypertension I10 ; GERD with esophagitis K21.0 ; Hypothyroidism (acquired) E03.9 and Ganglion cyst of joint of finger of left hand M67.442 [place] [address] 8[address]39- 0500 15 Nov, 2016 Encounter for immunization Z23 [address] [address]- [address] Nov, [place] [address] [address]- 1979 Sep, [place] [address] 93488- 0209 Aug, [place] [address] 66506- 1062 July, Cyst of joint of right hand M25.841 [place] [address] 77190- 5400 May, [place] [id number] [place] [address] 57127- 5726 May, Fever, unspecified R50.9 and Influenza A J10.1 [place] [id number] [place] [address] 34858- 9426 May, Left shoulder pain, unspecified chronicity M25.512 [place] [address] 15200- 4375 Apr, [place] [address] 55251- 5190 Apr, Infraspinatus tendon tear, left, subsequent encounter S46.812D and Supraspinatus tendon tear, left, subsequent encounter S46.812D [place] [id number] [place] [address] 95803- 4589 Apr, [place] [address] 69924- 2583 Mar, Left shoulder pain, unspecified chronicity M25.512 [place] [address] 19466- 1724 Mar, [place] [id number] [place] [address] 29055- 4032 Mar, Left shoulder pain, unspecified chronicity M25.512 [place] [id number] [place] [address] 96468- 2901 Feb, Chronic superficial gastritis without bleeding K29.30 ; Left upper quadrant pain R10.12 ; Essential hypertension I10 ; Dyspnea on exertion R06.09 and Palpitations R00.2 [place] [id number] [place] [address] 09253- 7648 Jan, Colon polyps K63.5 [place] [id number] [place] [address] 89782- 3310 Jan, Colon polyps K63.5 [place] [id number] [place] [address] 53484- 0619 12 Dec, 2015 [facility] [id number] [place] [address] 73884 -7243 10 Dec, 2015 GERD with esophagitis K21.0 [facility] [id number] [place] [address] 31271- 5717 22 Nov, 2015 Arthritis pain M19.90 ; Colon polyps K63.5 ; Seasonal allergic rhinitis due to pollen J30.1 and Encounter for immunization Z23 [facility] [id number] [place] [address] 61826- 1363 15 Nov, 2015 [facility] [address] 87836- 6977 Oct, [facility] [id number] [place] [address] 90177- 2707 Sep, [facility] [id number] [place] [address] 54865- 4733 July, [facility] [id number] [place] [address] 01419- 1443 July, [facility] [id number] [place] [address] 48076- 6474 July, Asthma with acute exacerbation J45.901 and Bronchitis J40 [facility] [id number] [place] [address] 35822- 4903 Jun, [facility] [id number] [place] [address] 72992- 6315 May, Other specified hypothyroidism E03.8 and 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 [facility] [address] 89689- 5775 Apr, [facility] [id number] [place] [address] 15977- 0897 Apr, Sacroiliac joint pain M53.3 [facility] [id number] [place] [address] 48892- 8906 Mar, Other specified hypothyroidism E03.8 ; Restless legs syndrome G25.81 ; Asthma with acute exacerbation J45.901 and Bronchitis J40 [facility] [id number] [place] [address] 28399 -3374 Feb, Upper respiratory symptom R09.89 [facility] [address] 61173- 5231 Feb, Restless leg G25.81 and Asthma J45.909 [place] [address] 76636- 8073 Dec, Rupture of tendon of right shoulder S46.911A [place] [address] 92162- 3515 Dec, Sacroiliac joint pain M53.3 [place] [address] 63447- 3651 30 Nov, 2014 [place] [address] 85806- 3237 28 Nov, 2014 Lumbago of lumbosacaral region with sciatica 724.2 and Sacroiliitis 720.2 [place] [address] 05000- 5332 Nov, Influenza vaccine administered V04.81 [place] [address] 87364- 1221 Nov, [place] [address] 67142- 9640 Nov, [place] [address] 49977- 6350 18 Nov, 2014 Thyroid function test abnormal 794.5 and Thyroid antibody positive 795.79 [place] [address] 62525- 5311 16 Nov, 2014 Hypothyroidism 244.9 ; Thyroid antibody positive 795.79 and Right shoulder pain 719.41 [facility] [id number] [place] [address] 64532- 9593 Oct, [facility] [id number] [place] [address] 07730- 9129 Oct, Thyroid function test abnormal 794.5 [facility] [address] 65374- 8939 Oct, Hypertension 401.9 and Bilateral leg pain 729.5 [facility] [id number] [place] [address] 60912- 6512 Oct, [facility] [id number] [place] [address] 57103- 0676 Oct, Bilateral leg pain 729.5 and Hypertension 401.9 [facility] [id number] [place] [address] 87545- 5646 Sep, Bilateral leg pain 729.5 ; Hypertension 401.9 and Edema 782.3 [facility] [id number] [place] [address] 45636- 2076 Aug, Unspecified hereditary and idiopathic peripheral neuropathy 356.9 and Arthritis 716.90 [facility] [id number] [place] [address] 61458- 7596 Aug, [facility] [id number] [place] [address] 48705- 0665 July, [facility] [id number] [place] [address] 92997- 6384 Jun, [facility] [id number] [place] [address] 99957- 9144 Jun, [facility] [id number] [place] [address] 25109- 1429 Jun, [facility] [id number] [place] [address] 37602- 3563 May, [facility] [place] [facility] [address] [id number] [place] [address]- 8785 May, [facility] [place] [facility] [address] [id number] [place] [address]- 0988 May, [facility] [place] [facility] [address] [id number] [place] [address]- 3538 May, [facility] [place] [facility] [address] [id number] [place] [address]- 8821 16 May, 2014 [facility] [place] [facility] [address] [id number] [place] [address]- 6396 16 May, 2014 [facility] [place] [facility] [address] [id number] [place] [address]- 3464 May, [facility] [place] [facility] [address] [facility] [id number] [place] [address]- 2100 May, [facility] [place] [facility] [address] [id number] [place] [address]- 6509 May, [facility] [place] [facility] [address] [id number] [place] [address]- 9507 May, [facility] [place] [facility] [address] [id number] [place] [address]- 8548 May, [facility] [place] [facility] [address] [id number] [place] [address]- 2619 Apr, 2014 [facility] [place] [facility] [address] [id number] [place] [address]- 8844 Apr, 2014 [facility] [place] [facility] [address] [id number] [place] [address]- 7043 Apr, 2014 [facility] [place] [facility] [address] [id number] [place] [address]- 6431 Apr, 2014 [facility] [place] [facility] [address] [id number] [place] [address]- 2464 17 Apr, 2014 [facility] [place] [facility] [address] [id number] [place] [address]- 2430 Apr, [facility] [address] [id number] [place] [address]- 9746 Apr, [facility] [place] [facility] [address] [id number] [place] [address]- 1166 Apr, [facility] [place] [facility] [address] [id number] [place] [address]- 3713 Mar, [facility] [place] [facility] [address] [id number] [place] [address]- 2474 Mar, [facility] [place] [facility] [address] [id number] [place] [address]- 2927 Mar, [facility] [place] [facility] [address] [id number] [place] [address]- 1974 Mar, [facility] [address] [id number] [place] [address]- 2885 Mar, [facility] [place] [facility] [address] [id number] [place] [address]- 1183 Mar, [facility] [place] [facility] [address] [id number] [place] [address]- 6819 Feb, [facility] [place] [facility] [address] [facility] [id number] [place] [address]- 9026 Feb, [facility] [place] [facility] [address] [id number] [place] [address]- 2262 Feb, [facility] [place] [facility] [address] [id number] [place] [address]- 1679 Feb, [facility] [place] [facility] [address] [id number] [place] [address]- 9856 Feb, [facility] [place] [facility] [address] [id number] [place] [address]- 2536 Feb, [facility] [place] [facility] [address] [id number] [place]574 Feb, [facility] [place] [facility] [address] [id number] [place] [address]- 3957 Feb, [facility] [place] [facility] [address] [id number] [place] [address]- 4603 Feb, [facility] [place] [facility] [address] [id number] [place] [address]- 5708 Feb, [facility] [place] [facility] [address] [id number] [place] [address]- 6883 Feb, [facility] [place] [facility] [address] [id number] [place] [address]- 9887 Feb, [facility] [place] [facility] [address] [id number] [place] [address]- 5708 Feb, [facility] [place] [facility] [address] [id number] [place] [address]- 7937 Feb, [facility] [place] [facility] [address] [id number] [place] [address]- 2497 Feb, [facility] [place] [facility] [address] [id number] [place] [address]- 2211 Feb, [facility] [place] [facility] [address] [id number] [place] [address]- 5242 Feb, [facility] [place] [facility] [address] [id number] [place] [address]- 2648 Feb, [facility] [place] [facility] [address] [id number] [place] [address]- 3376 Feb, [facility] [place] [facility] [address] [id number] [place] [address]- 2510 Feb, [facility] [place] [facility] [address] [id number] [place] [address]- 2855 Feb, [facility] [place] [facility] [address] [id number] [place] [address]- 8694 Feb, [facility] [place] [facility] [address] [id number] [place] [address]- 5316 Feb, [facility] [place] [facility] [address] [id number] [place] 9348 Jan, [facility] [place] [facility] [address] [id number] [place] [address]- 7137 Jan, [facility] [place] [facility] [address] [facility] [id number] [place] [address]- 7735 Jan, [facility] [place] [facility] [address] [id number] [place] [address]- 7915 Jan, [facility] [place] [facility] [address] [id number] [place] [address]- 0276 Jan, [facility] [place] [facility] [address] [id number] [place] [address]- 3775 Jan, [facility] [place] [facility] [address] [id number] [place] [address]- 8984 Jan, [facility] [place] [facility] [address] [id number], [place] [address]- 4152 Jan, [facility] [place] [facility] [address] [id number] [place] [address]- 5050 Jan, [facility] [place] [facility] [address] [id number], [place] [address]- 1275 Dec, [facility] [place] [facility] [address] [id number], [place] [address]- 5101 Dec, [facility] [place] [facility] [address] [id number], [place] [address]- 7193 Dec, [facility] [place] [facility] [address] [id number] 9070 Dec, [facility] [place] [facility] [address] [facility] [id number][place] 7942 Dec, [facility] [place] [facility] [address] [id number] 0954 Dec, [facility] [place] [facility] [address] [id number] [place] [address]- 5754 Dec, [facility] [place] [facility] [address] [id number] [place] [address]- 0769 Dec, [facility] [place] [facility] [address] [id number] [place] [address]- 1430 Dec, [facility] [place] [facility] [address] [id number] [place] [address]- 5708 Dec, [facility] [place] [facility] [address] [id number] [place] [address]- 3837 Nov, [facility] [place] [facility] [address] [id number] [place] [address]- 9213 Nov, [facility] [place] [facility] [address] [id number] [place] [address]- 5931 Nov, [facility] [place] [facility] [address] [id number] [place] [address]- 7094 Nov, [facility] [place] [facility] [address] [id number] [place] [address]- 3868 Nov, [facility] [place] [facility] [address] [id number] [place] [address]- 5406 Nov, [facility] [place] [facility] [address] [id number] [place] [address]- 1791 Nov, [facility] [place] [facility] [address] [id number] [place] [address]- 2541 Nov, [facility] [place] [facility] [address] [id number] [place] [address]- 8374 Nov, [facility] [place] [facility] [address] [id number] [place] [address]- 8191 Nov, [facility] [place] [facility] [address] [id number] [place] [address]- 1505 Oct, [facility] [place] [facility] [address] [id number] [place] [address]- 1423 Oct, [facility] [place] [facility] [address] [id number] [place] [address]- 4938 Oct, [facility] [place] [facility] [address] [id number] [place] [address]- 9913 Oct, [facility] [place] [facility] [address] [id number] [place] [address]- 7271 Oct, [facility] [place] [facility] [address] [id number] [place] [address]- 6749 Oct, [facility] [place] [facility] [address] [id number] [place] [address]- 6169 Oct, [facility] [place] [facility] [address] [id number] [place] [address]- 5432 Oct, [facility] [place] [facility] [address] [id number] [place] [address]- 6578 Oct, [facility] [place] [facility] [address] [id number] [place] [address]- 8660 Oct, [facility] [place] [facility] [address] [id number] [place] [address]- 8351 Sep, [facility] [place] [facility] [address] [id number] [place] [address]- 1951 Sep, [facility] [place] [facility] [address] [id number] [place] [address]- 5405 Aug, [facility] [place] [facility] [address] [id number] [place] [address]- 7069 Aug, [facility] [place] [facility] [address] [id number] [place] [address]- 5416 Aug, [facility] [place] [facility] [address] [id number] [place] [address]- 9871 Aug, [facility] [place] [facility] [address] [id number] [place] [address]- 7740 Aug, [facility] [place] [facility] [address] [id number] [place] [address]- 2312 Aug, [facility] [place] [facility] [address] [id number] [place] [address]- 4066 Aug, [facility] [place] [facility] [address] [id number] [place] [address]- 9074 Aug, [facility] [place] [facility] [address] [id number] [place] [address]- 6329 Aug, [facility] [place] [facility] [address] [id number] [place] [address]- 0092 Aug, [facility] [place] [facility] [address] [id number] [place] [address]- 1157 Aug, [facility] [place] [facility] [address] [id number] [place] [address]- 9374 Aug, [facility] [place] [facility] [address] [id number] [place] [address]- 3371 July, [facility] [place] [facility] [address] [id number] [place] [address]- 2259 July, [facility] [place] [facility] [address] [id number] [place] [address]- 9373 July, [facility] [place] [facility] [address] [id number] [place] [address]- 4325 July, [facility] [place] [facility] [address] [id number] [place] [address] July, [facility] [place] [facility] [address] [id number] [place] [address] July, [facility] [place] [facility] [address] [id number] [place] [address] July, [facility] [place] [facility] [address] [id number] [place] [address] July, [facility] [place] [facility] [address] [id number] [place] [address] Jun, [facility] [place] [facility] [address] [id number] [place] [address] 14 Jun, 2013 [facility] [place] [facility] [address] [id number] [place] [address] 27 May, 2013 [facility] [place] [facility] [address] [id number] [place] [address] 27 May, 2013 [facility] [place] [facility] [address] [id number] [place] [address] 27 May, 2013 [facility] [place] [facility] [address] [id number] [place] [address] May, [facility] [place] [facility] [address] [id number] [place] [address] May, [facility] [place] [facility] [address] [facility] [id number] [place] [address] May, [facility] [place] [facility] [address] [id number] [place] [address] May, [facility] [place] [facility] [address] [id number] [place] [address] May, [facility] [place] [facility] [address] [id number] [place] [address]- [address] Apr, [facility] [place] [facility] [address] [facility] [id number] [place] [address] Apr, [facility] [place] [facility] [address] [id number] [place] [address] Apr, [facility] [place] [facility] [address] [id number] [place] [address]- [address]88 Apr, [facility] [place] [facility] [address] [id number] [place] [address] Apr, [facility] [place] [facility] [address] [id number] [place] [address] Apr, [facility] [place] [facility] [address] [id number] [place] [address] Apr, [facility] [address] [id number] [place] [address] Apr, [facility] [place] [facility] [address] [id number] [place] [address] Mar, [facility] [place] [facility] [address] [id number] [place] [address] Mar, [facility] [place] [facility] [address] [id number] [place] [address] Mar, [facility] [place] [facility] [address] [id number] [place] [address] Mar, [facility] [place] [facility] [address] [id number] [place] [address] Mar, [facility] [address] [id number] [place] [address]60 Mar, [facility] [place] [facility] [address] [id number] [place] [address] Mar, [facility] [address] [id number], [place] [address] Mar, [facility] [place] [facility] [address] [id number] [place] [address] Mar, [facility] [address] [id number], [place] [address] Mar, [facility] [place] [facility] [address] [id number], [place] [address] Feb, [facility] [place] [facility] [address] [id number], [place] [address] Feb, [facility] [place] [facility] [address] [id number] [place] [address] Feb, [facility] [place] [facility] [address] [id number] [place] [address] Feb, [facility] [place] [facility] [address] [id number] [place] [address]- [address]69 12 Jan, 2013 [facility] [place] [facility] [address] [id number] [place] [address]- [address] Jan, [facility] [place] [facility] [address] [id number] [place] [address] 30 Dec, 2012 [facility] [place] [facility] [address] [id number] [place] [address]- [address] 30 Dec, 2012 [facility] [place] [facility] [address] [id number] [place] [address]- [address] Dec, [facility] [place] [facility] [address] [id number] [place] [address]- [address] Dec, [facility] [place] [facility] [address] [id number] [place] [address]- [address] Dec, [facility] [place] [facility] [address] [id number] [place] [address]- [address] Dec, [facility] [place] [facility] [address] [id number] [place] [address]- 1006 Dec, [facility] [place] [facility] [address] [id number] [place] [address]- [address] 14 Dec, 2012 [facility] [place] [facility] [address] [id number] [place] [address] 288[address] Dec, [facility] [place] [facility] [address] [id number] [place] [address]- [address]679 Dec, [facility] [place] [facility] [address] [id number] [place] [address]- 1492 Dec, [facility] [place] [facility] [address] [id number] [place] [address]- 1138 Dec, [facility] [place] [facility] [address] [id number] [place] [address] 2546 Dec, [facility] [place] [facility] [address] [address] [id number] [place] [address] Nov, [facility] [place] [facility] [address] [id number] [place] [address] Nov, [facility] [place] [facility] [address] [id number] [place] [address] Nov, [facility] [place] [facility] [address] [id number] [place] [address] Nov, [facility] [place] [facility] [address] [id number] [place] [address] Nov, [facility] [place] [facility] [address] [id number] [place] [address] Oct, [facility] [place] [facility] [address] [id number] [place] [address] Oct, [facility] [place] [facility] [address] [id number] [place] [address] Oct, [facility] [place] [facility] [address] [id number] [place] [address] Oct, [facility] [place] [facility] [address] [id number] [place] [address] Oct, [facility] [place] [facility] [address] [id number] [place] [address] Oct, [facility] [place] [facility] [address] [id number] [place] [address] Oct, [facility] [place] [facility] [address] [id number] [place] [address] Sep, [facility] [place] [facility] [address] [id number] [place] [address] Sep, [facility] [place] [facility] [address] [id number] [place] [address] 47[address] Sep, [facility] [place] [facility] [address] [id number] [place] [address] Aug, [facility] [place] [facility] [address] [id number] [place] [address] Aug, [facility] [address] [id number] [place] [address] Aug, [facility] [place] [facility] [address] [id number] [place] [address] 6[address] Aug, [facility] [address] [id number] [place] [address] July, [facility] [place] [facility] [address] [id number] [place] [address]97 July, [facility] [address] [id number] [place] [address] 9420 July, [facility] [place] [facility] [address] [id number] [place] [address] 7920 July, [facility] [address] [id number] [place] [address] Jun, [facility] [place] [facility] [address] [id number] [place] [address] 120[address] Jun, [facility] [place] [facility] [address] [id number] [place] [address]252 May, [facility] [place] [facility] [address] [id number] [place] [address]157 May, [facility] [place] [facility] [address] [id number] [place] [address] 6367 Apr, [facility] [place] [facility] [address] [id number] [place] [address]57 Apr, [facility] [place] [facility] [address] [id number] [place] [address] 68[address] Feb, [facility] [place] [facility] [address] [id number] [place] [address] Feb, [facility] [place] [facility] [address] [id number] [place] [address] 8967 Feb, [facility] [place] [facility] [address] [id number] [place] [address] 8948 Feb, [facility] [place] [facility] [address] [id number] [place] [address] 9416 Feb, [facility] [place] [facility] [address] [id number] [place] [address]007 Feb, [facility] [place] [facility] [address] [id number] [place] [address] Jan, [facility] [place] [facility] [address] [id number] [place] [address] 137[address] Jan, [facility] [place] [facility] [address] [id number] [place] [address] Jan, [facility] [place] [facility] [address] [id number] [place] [address] 268[address] Jan, [facility] [place] [facility] [address] [id number] [place] [address] 44[address] Jan, [facility] [place] [facility] [address] [id number] [place] [address] Jan, [facility] [place] [facility] [address] [id number] [place] [address] 285[address] Jan, [facility] [place] [facility] [address] [id number] [place] [address] 6767 Jan, [facility] [place] [facility] [address] [id number] [place] [address] Jan, [facility] [place] [facility] [address] [id number] [place] [address]37 Jan, [facility] [place] [facility] [address] [id number] [place] [address] 6[address] Jan, [facility] [place] [facility] [address] [id number] [place] [address] 8717 Jan, [facility] [place] [facility] [address] [id number] [place] [address]46 Jan, [facility] [place] [facility] [address] [id number] [place] [address] 59[address] Dec, [facility] [place] [facility] [address] [id number] [place] [address] 5685 Dec, [facility] [place] [facility] [address] [id number] [place] [address] 0481 Dec, [facility] [place] [facility] [address] [id number] [place] [address]- 4983 Dec, [facility] [place] [facility] [address] [id number] [place] [address] 2608 Dec, [facility] [place] [facility] [address] [id number] [place] [address]- 8582 Dec, [facility] [place] [facility] [address] [id number] [place] [address]- 6775 Dec, [facility] [place] [facility] [address] [id number] [place] [address] 4667 Nov, [facility] [place] [facility] [address] [id number] [place] [address] Nov, [facility] [place] [facility] [address] [id number] [place] [address] 5280 Oct, [facility] [place] [facility] [address] [id number] [place] [address] 2212 Oct, [facility] [place] [facility] [address] [id number] [place] [address] 7128 Sep, [facility] [place] [facility] [address] [id number] [place] [address]- 7632 Sep, [facility] [place] [facility] [address] [id number] [place] [address]- 7991 Sep, [facility] [place] [facility] [address] [id number] [place] [address]- 9907 Sep, [facility] [place] [facility] [address] [id number] [place] [address] 2546 July, [facility] [address] [id number] [place] [address] 4[address] July, [facility] [address] [id number] [place] [address] 4396 July, [facility] [address] [id number] [place] [address]- 2600 Jun, [facility] [address] [id number] [place] [address]- 0368 Jun, [facility] [address] [id number] [place] [address]- 4297 Jun, [facility] [address] [id number] [place] [address]- [address]48 16 Jun, 2011 [facility] [address] [id number] [place] [address]- 4998 Jun, [facility] [address] [id number] [place] [address]- 5501 Jun, [facility] [address] [id number] [place] [address]- 7486 Jun, [facility] [address] [id number] [place] [address]- 1153 Jun, [facility] [address] [id number] [place] [address]- 9294 Jun, [facility] [address] [id number] [place] [address]- 6835 May, [facility] [address] [id number] [place] [address]- 0250 May, [facility] [address] [id number] [place] [address]- 7939 May, [facility] [address] [id number] [place] [address]- 0766 May, [facility] [place] [facility] [address] [id number] [place] [address]- 0447 May, [facility] [place] [facility] [address] [id number] [place] [address]- 3736 Apr, [facility] [place] [facility] [address] [id number] [place] [address]- 9296 Mar, [facility] [place] [facility] [address] [id number] [place] [address]- 6556 Mar, [facility] [place] [facility] [address] [id number] [place] [address]- 3025 Feb, [facility] [place] [facility] [address] [id number] [place] [address]- 8526 Feb, [facility] [place] [facility] [address] [id number] [place] [address]- 8286 Feb, [facility] [place] [facility] [address] [id number] [place] [address]- 5249 Jan, [facility] [place] [facility] [address] [id number] [place] [address]- 6310 Dec, [facility] [place] [facility] [address] [id number] [place] [address] Dec, [facility] [place] [facility] [address] [id number] [place] [address]- 5006 Dec, [facility] [place] [facility] [address] [id number] [place] [address]- 8766 July, [facility] [place] [facility] [address] [id number] [place] [address]- 5940 May, [facility] [place] [facility] [address] [id number] [place] [address]- 3906 Feb, [facility] [place] [facility] [address] [id number] [place] [address]- 1686 Feb, [facility] [place] [facility] [address] [id number], [place] [address]- [address] 09 Feb, 2010 [facility] [address] [id number] [place] [address]- 8346 Jan, [facility] [place] [facility] [address] [id number], [place] [address]- 1366 Dec, [facility] [address] [id number] [place] [address]- 0496 Dec, [facility] [place] [facility] [address] [id number] [place] [address]- 4811 Oct, [facility] [address] [id number] [place] [address]- 3494 July, [facility] [place] [facility] [address] [id number] [place] [address]- 7968 Apr, [facility] [address] [facility] [id number], [place] [address]- 65[address] Mar, [facility] [place] [facility] [address] [id number], [place] [address]- 2022 Feb, [facility] [address] [facility] [id number] [place] [address]- 2893 Feb, [facility] [place] [facility] [address] [facility] [id number], [place] [address]- 7860 Feb, [facility] [place] [facility] [address] [facility] [id number], [place] [address]- 3710 Feb, [facility] [place] [facility] [address] [facility] [id number], [place] [address]- 1521 Feb, [facility] [place] [facility] [address] [facility] [id number], [place] [address]- 3851 Jan, [facility] [place] [facility] [address] [facility] [id number], [place] [address]- 6506 Jan, [facility] [place] [facility] [address] [facility] [id number], [place] [address]- 6560 Dec, [facility] [place] [facility] [address] [facility] [id number] [place] [address]- [address] 14 Nov, 2008 IMMUNIZATIONS No Known Immunizations SOCIAL HISTORY Never Assessed REASON FOR VISIT sore throat et thinks he has a fever, cough. been sick for 5 days. [email or web address] PLAN OF CARE Activity Details Follow Up prn Reason: VITAL SIGNS Height 70 in 2017-10-14 Weight 331.6 lbs 2017-10-14 Temperature 98.5 degrees Fahrenheit 2017-10-14 Heart Rate 88 bpm 2017-10-14 Respiratory Rate 20 2017-10-14 BMI 47.57 kg/m2 2017-10-14 Blood pressure systolic 136 mmHg 2017-10-14 Blood pressure diastolic 78 mmHg 2017-10-14 MEDICATIONS Medication Instructions Dosage Frequency Start Date End Date Duration Status C-PAP Machine Active Meloxicam 15 mg Orally Once a day TAKE ONE TABLET BY MOUTH ONCE DAILY. 24h 30 days Active Ventolin HFA 90 mcg/actuation 2 puffs by Inhalation route 4 times per day PRN keep on file don't fill today Feb, Active Fluticasone Propionate 50 MCG/ACT Nasally daily prn 1 spray in each nostril Active Amlodipine Besylate 10 MG TAKE ONE TABLET BY MOUTH ONCE DAILY 30 Active Hydrochlorothiazide 50 MG TAKE ONE TABLET BY MOUTH DAILY 30 Active Omeprazole 20 MG TAKE ONE CAPSULE BY MOUTH TWICE DAILY. 30 Active Norvasc 10 mg TAKE ONE TABLET BY MOUTH DAILY 30 Active Quinapril HCl 20 MG TAKE THREE TABLETS BY MOUTH ONCE DAILY 16 Active Gabapentin 300 MG Orally 1 at HS TAKE ONE CAPSULE BY MOUTH DAILY AT NIGHT 16 Active Fish Oil 1000 MG Orally Twice a day 1 capsule 12h Active Azithromycin 250 MG Orally Once a day 2 tablets on the first day, then 1 tablet daily for 4 days 24h Sep, Sep, 5 day(s) Active Vitamin D3 1,000 unit 2 capsule by Oral route 1 time per day Dec, Active Aspirin 81 mg 1 tablet by Oral route 1 time per day Feb, Active Probiotic - Active Levothyroxine Sodium 200 MCG TAKE ONE TABLET BY MOUTH DAILY Active PredniSONE 20 MG Orally Once a day 2 tablet 24h Sep, Sep, 5 days Active RESULTS No Results PROCEDURES Procedure Date Ordered Result Body Site [facility] VISIT ESTABLISHED PATIENT October 14, 2017 INSTRUCTIONS MEDICATIONS ADMINISTERED No Known Medications [...] History left knee replacement 2018 Hospitalization History [facility]- Right knee surgery. discharged 01/27/17 Hospitalization History [facility]- Left knee replacement 06/16/2017
--- OUTSIDE RECORDS SUMMARY | 2018-02-11 11:08 | XMS REPORT ---
Author Author [facility] Address [address] [place] [address] Care Team Providers Care Sales Project Engineer Name Role Phone MIN TAMMY Unavailable PROBLEMS Type Condition ICD9-CM Code ICQ82-LC Code Onset Dates Condition Status SNOMED Code Problem Arthritis M19.90 Active 8319199 Problem Allergic state, subsequent encounter T78.40XD Active 453055604 Problem Hypothyroidism (acquired) E03.9 Active 253293401 Problem Mild intermittent asthma with exacerbation J45.21 Active 109850083 Problem COPD with exacerbation J44.1 Active 352294570 Problem Obstructive sleep apnea (adult) (pediatric) G47.33 Active 19401640 Problem Dependence on other enabling machines and devices Z99.89 Active 263996431 Problem Body mass index (BMI) of 45.0-49.9 in adult Z68.42 Active 737450452 Problem Morbid (severe) obesity due to excess calories E66.01 Active 912680017 ALLERGIES No Information ENCOUNTERS Encounter Location Date Diagnosis [place] [id number] [place] [address] 19789- 4481 Oct, Prediabetes R73.03 [place] [address] [place] [id number] [place] [address] 30511- 1162 Oct, Essential hypertension I10 and Hypothyroidism (acquired) E03.9 [facility] [id number] [place] [address] 62750- 3118 Oct, [place] [id number] [place] [address] 12693- 8889 Oct, [place] [address] [id number] [place] [address] 70316- 5419 Oct, Essential hypertension I10 ; Hypothyroidism (acquired) [...] Obstructive sleep apnea (adult) (pediatric) G47.33 [facility] [id number] [place] [address] 72419 -0165 Sep, Mild intermittent asthma with exacerbation J45.21 [facility] [id number] [place] [address] 86442- 8389 Sep, [place] [address] 61656- 1493 Sep, Long-term use of high-risk medication Z79.899 [place] [address] 33781- 8702 Sep, Long-term use of high-risk medication Z79.899 [facility] [id number] [place] [address] 41862- 7670 July, [facility] [id number] [place] [address] 13354- 4742 Jun, [facility] [id number] [place] [address] 73272- 8870 May, Asthma J45.909 [facility] [address] 62003- 1587 May, [facility] [id number] [place] [address] 42409- 0958 27 Apr, 2017 Pre-op evaluation Z01.818 ; Allergic state, subsequent encounter T78.40XD and BMI 45.0-49.9, adult Z68.42 [facility] [id number] [place] [address] 58750- 8615 Mar, [place] [address] 51676- 0358 Mar, [facility] [address] 20571 -9761 Mar, Cough R05 ; Acute nasopharyngitis J00 and BMI 45.0-49.9, adult Z68.42 [facility] [address] 87053- 0989 Mar, [facility] [address] 00477- 3226 Jan, Ganglion cyst of finger of right hand M67.441 [place] [address] 15656- 6112 Dec, [place] [address] 98142- 8636 Dec, Change in vision H53.9 ; Arthritis M19.90 ; Essential hypertension I10 ; GERD with esophagitis K21.0 ; Hypothyroidism (acquired) E03.9 and Ganglion cyst of joint of finger of left hand M67.442 [place] [address] 78487- 7180 15 Nov, 2016 Encounter for immunization Z23 [facility] [address] 74063- 8705 07 Nov, 2016 [facility] [address] 29034- 6675 Sep, [facility] [address] 17919- 1037 Aug, [place] [address] 15708- 0857 July, Cyst of joint of right hand M25.841 [place] [address] 84594- 4975 May, [place] [address] 55772- 5358 May, Fever, unspecified R50.9 and Influenza A J10.1 [place] [address] 70375- 1741 May, Left shoulder pain, unspecified chronicity M25.512 [place] [address] 63540- 0520 Apr, [place] [address] 14576- 5389 Apr, Infraspinatus tendon tear, left, subsequent encounter S46.812D and Supraspinatus tendon tear, left, subsequent encounter S46.812D [place] [address] 44257- 2286 Apr, [place] [address] 36388- 0017 Mar, Left shoulder pain, unspecified chronicity M25.512 [place] [address] [place] [id number] [place] [address] 81328- 3065 Mar, [place] [address] [id number] [place] [address] 12203- 0734 Mar, Left shoulder pain, unspecified chronicity M25.512 [place] [address] [id number] [place] [address] 72553- 9544 Feb, Chronic superficial gastritis without bleeding K29.30 ; Left upper quadrant pain R10.12 ; Essential hypertension I10 ; Dyspnea on exertion R06.09 and Palpitations R00.2 [place] [address] [place] [id number] [place] [address] 85812- 3099 Jan, Colon polyps K63.5 [place] [address] [place] [id number] [place] [address] 78775- 9519 Jan, Colon polyps K63.5 [place] [address] [place] [id number] [place] [address] 10300- 7377 Dec, [facility] [id number] [place] [address] 99086 -8765 Dec, GERD with esophagitis K21.0 [facility] [address] [id number] [place] [address] 06759- 8543 Nov, Arthritis pain M19.90 ; Colon polyps K63.5 ; Seasonal allergic rhinitis due to pollen J30.1 and Encounter for immunization Z23 [facility] [address] 63329- 4121 Nov, [facility] [address] [place] [id number] [place] [address] 69525- 8390 Oct, [facility] [address] 20613- 5937 Sep, [facility] [address] 09956- 9997 July, [facility] [address] 17808- 3720 July, [facility] [address] [place] [id number] [place] [address] 86354- 4880 July, Asthma with acute exacerbation J45.901 and Bronchitis J40 [facility] [address] [id number] [place] [address] 85927- 9488 Jun, [facility] [id number] [place] [address] 10867- 5124 May, Other specified hypothyroidism E03.8 and 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 [address] 49726 -8914 Feb, Upper respiratory symptom R09.89 [facility] [address] 17238- 6609 Feb, Restless leg G25.81 and Asthma J45.909 [place] [address] 00824- 6665 Dec, Rupture of tendon of right shoulder S46.911A [place] [address] 92064- 6404 Dec, Sacroiliac joint pain M53.3 [place] [address] 11342- 8368 30 Nov, 2014 [place] [address] 10181- 3510 28 Nov, 2014 Lumbago of lumbosacaral region with sciatica 724.2 and Sacroiliitis 720.2 [place] [address] 57583- 8485 Nov, Influenza vaccine administered V04.81 [place] [address] 71684- 5328 Nov, [place] [address] 78748- 3589 Nov, [place] [address] 83390- 1747 18 Nov, 2014 Thyroid function test abnormal 794.5 and Thyroid antibody positive 795.79 [place] [address] 86141- 8029 16 Nov, 2014 Hypothyroidism 244.9 ; Thyroid antibody positive 795.79 and Right shoulder pain 719.41 [place] [address] [place] [id number] [place] [address] 35569- 7672 Oct, [facility] [id number] [place] [address] 55681- 1323 Oct, Thyroid function test abnormal 794.5 [facility] [address] [place] [id number] [place] [address] 82162- 3818 Oct, Hypertension 401.9 and Bilateral leg pain 729.5 [facility] [address] [id number] [place] [address] 41416- 2981 Oct, [facility] [id number] [place] [address] 28300- 6298 Oct, Bilateral leg pain 729.5 and Hypertension 401.9 [facility] [id number] [place] [address] 70355- 6051 Sep, Bilateral leg pain 729.5 ; Hypertension 401.9 and Edema 782.3 [facility] [id number] [place] [address] 30648- 6182 Aug, Unspecified hereditary and idiopathic peripheral neuropathy 356.9 and Arthritis 716.90 [facility] [id number] [place] [address] 51726- 2497 Aug, [facility] [id number] [place] [address] 56301- 7805 July, [facility] [id number] [place] [address] 11009- 0522 Jun, [facility] [id number] [place] [address] 40031- 4803 Jun, [facility] [id number] [place] [address] 41370- 2313 Jun, [facility] [id number] [place] [address] 34426- 2915 May, [facility] [id number] [place] [address] 59201- 1381 May, [facility] [place] [facility] [address] [id number] [place] [address]- 3754 May, [facility] [place] [facility] [address] [id number] [place] [address]- 5825 May, [facility] [place] [facility] [address] [facility] [id number] [place] 6532 May, [facility] [place] [facility] [address] [id number] [place] [address]- 3153 16 May, 2014 [facility] [place] [facility] [address] [id number] [place] [address]- 6094 May, [facility] [place] [facility] [address] [id number] [place] [address]- 9088 May, [facility] [place] [facility] [address] [facility] [id number] [place] [address]- 5458 May, [facility] [place] [facility] [address] [id number] [place] [address]- 5320 May, [facility] [place] [facility] [address] [facility] [id number] [place] [address]- 4600 May, [facility] [place] [facility] [address] [facility] [id number] [place] [address]- 3581 Apr, 2014 [facility] [place] [facility] [address] [facility] [id number] [place] [address]- 0460 Apr, 2014 [facility] [place] [facility] [address] [id number] [place] [address]- 7666 Apr, 2014 [facility] [place] [facility] [address] [id number] [place] [address]- 9523 Apr, 2014 [facility] [place] [facility] [address] [facility] [id number] [place] [address]- 1302 Apr, 2014 [facility] [place] [facility] [address] [facility] [id number] [place] [address]- 1152 Apr, 2014 [facility] [place] [facility] [address] [id number] [place] [address]- 8013 Apr, [facility] [place] [facility] [address] [id number] [place] 5409 Apr, [facility] [place] [facility] [address] [id number] [place] [address]- 7783 Mar, [facility] [place] [facility] [address] [id number] [place] [address]- 4629 Mar, [facility] [place] [facility] [address] [id number] [place] [address]- 6325 Mar, [facility] [place] [facility] [address] [id number] [place] [address]- 0067 Mar, [facility] [place] [facility] [address] [id number] [place] [address]- 0676 Mar, [facility] [place] [facility] [address] [id number] [place] [address]- 5596 Mar, [facility] [place] [facility] [address] [id number] [place] [address]- 5438 Feb, [facility] [place] [facility] [address] [id number] [place] [address]- 6213 Feb, [facility] [place] [facility] [address] [id number] [place] [address]- 9376 Feb, [facility] [place] [facility] [address] [id number] [place] [address]- 9365 Feb, [facility] [place] [facility] [address] [id number] [place] [address]- 7140 Feb, [facility] [place] [facility] [address] [id number] [place] [address]- 2546 Feb, [facility] [place] [facility] [address] [id number] [place] 2482 Feb, [facility] [place] [facility] [address] [id number] [place] [address]- 8060 Feb, [facility] [place] [facility] [address] [id number] [place] [address]- 9013 Feb, [facility] [place] [facility] [address] [id number] [place] 0516 Feb, [facility] [place] [facility] [address] [id number] [place] 9966 Feb, [facility] [place] [facility] [address] [id number] [place] [address]- 3507 Feb, [facility] [place] [facility] [address] [id number] [place] [address]- 3452 Feb, [facility] [place] [facility] [address] [id number] [place] [address]- 3599 Feb, [facility] [place] [facility] [address] [id number] [place] [address]- 2065 Feb, [facility] [place] [facility] [address] [id number] [place] [address]- 8934 Feb, [facility] [place] [facility] [address] [id number] [place] [address]- 9167 Feb, [facility] [place] [facility] [address] [id number] [place] [address]- 0376 Feb, [facility] [place] [facility] [address] [id number] [place] [address]- 6857 Feb, [facility] [place] [facility] [address] [id number], [place] [address]- 2889 Feb, [facility] [place] [facility] [address] [id number] [place] 7542 Feb, [facility] [place] [facility] [address] [id number] [place] [address]- 9001 Feb, [facility] [place] [facility] [address] [id number] [place] [address]- 9228 Feb, [facility] [place] [facility] [address] [id number] [place] [address]- 8413 Jan, [facility] [place] [facility] [address] [id number] [place] [address]- 7557 Jan, [facility] [place] [facility] [address] [id number] [place] [address]- 0451 Jan, [facility] [place] [facility] [address] [id number] [place] 8490 Jan, [facility] [place] [facility] [address] [id number] [place] [address]- 3681 Jan, [facility] [place] [facility] [address] [id number] [place] [address]- 5596 Jan, [facility] [place] [facility] [address] [id number] [place] [address]- 3044 Jan, [facility] [place] [facility] [address] [id number] [place] [address]- 3133 Jan, [facility] [place] [facility] [address] [id number] [place] [address]- 8410 Jan, [facility] [place] [facility] [address] [id number] [place] [address]- 4092 Dec, [facility] [place] [facility] [address] [facility] [id number] [place] [address]- 1049 Dec, [facility] [place] [facility] [address] [id number] [place] [address]- 8804 Dec, [facility] [place] [facility] [address] [id number] [place] [address]- 4448 Dec, [facility] [place] [facility] [address] [id number] [place] [address]- 6263 Dec, [facility] [place] [facility] [address] [id number] [place] [address]- 2640 Dec, [facility] [place] [facility] [address] [id number] [place] [address]- 8120 Dec, [facility] [place] [facility] [address] [id number] [place] [address]- 0717 Dec, [facility] [place] [facility] [address] [id number] [place] [address]- 7575 Dec, [facility] [place] [facility] [address] [id number] [place] [address]- 6329 Dec, [facility] [place] [facility] [address] [id number] [place] [address]- 4997 Nov, [facility] [place] [facility] [address] [id number] [place] [address]- 5737 Nov, [facility] [place] [facility] [address] [id number] [place] [address]- 1020 Nov, [facility] [place] [facility] [address] [id number] [place] [address]- 2498 Nov, [facility] [place] [facility] [address] [id number] [place] [address]- 2821 Nov, [facility] [place] [facility] [address] [id number] [place] [address]- 2678 Nov, [facility] [place] [facility] [address] [id number] [place] [address]- 9037 Nov, [facility] [place] [facility] [address] [id number] [place] [address]- 5702 Nov, [facility] [place] [facility] [address] [id number] [place] [address]- 7883 Nov, [facility] [place] [facility] [address] [id number] [place] [address]- 4652 Nov, [facility] [place] [facility] [address] [id number] [place] [address]- 1002 Oct, [facility] [place] [facility] [address] [id number] [place] [address]- 5063 Oct, [facility] [place] [facility] [address] [id number] [place] [address]- 7588 Oct, [facility] [place] [facility] [address] [id number] [place] [address]- 4897 Oct, [facility] [place] [facility] [address] [id number] [place] [address]- 8226 Oct, [facility] [place] [facility] [address] [id number] [place] [address]- 4361 Oct, [facility] [place] [facility] [address] [id number] [place] [address]- 1171 Oct, [facility] [place] [facility] [address] [id number] [place] [address]- 7027 Oct, [facility] [place] [facility] [address] [id number] [place] [address]- 1063 Oct, [facility] [place] [facility] [address] [id number] [place] [address]- 5624 Oct, [facility] [place] [facility] [address] [id number] [place] [address]- 2200 Sep, [facility] [place] [facility] [address] [id number] [place] [address]- 0694 Sep, [facility] [place] [facility] [address] [id number] [place] [address]- 1051 Aug, [facility] [place] [facility] [address] [id number] [place] [address]- 6065 Aug, [facility] [place] [facility] [address] [id number] [place] [address]- 5207 Aug, [facility] [place] [facility] [address] [id number] [place] [address]- 8911 Aug, [facility] [place] [facility] [address] [id number] [place] [address]- 4525 Aug, [facility] [place] [facility] [address] [id number] [place] [address]- 7533 Aug, [facility] [place] [facility] [address] [id number] [place] [address]- 2479 Aug, [facility] [address] [id number] [place] [address]- 8901 Aug, [facility] [place] [facility] [address] [id number] [place] [address]- 0395 Aug, [facility] [place] [facility] [address] [id number] [place] [address]- 1907 Aug, [facility] [place] [facility] [address] [id number] [place] [address]- 1544 Aug, [facility] [place] [facility] [address] [id number] [place] [address]- 1888 Aug, [facility] [place] [facility] [address] [id number] [place] [address]- 7110 July, [facility] [place] [facility] [address] [id number] [place] [address] July, [facility] [address] [id number] [place] [address] July, [facility] [place] [facility] [address] [id number] [place] [address] July, [facility] [place] [facility] [address] [id number] [place] [address] July, [facility] [place] [facility] [address] [id number] [place] [address] July, [facility] [place] [facility] [address] [id number] [place] [address] July, [facility] [place] [facility] [address] [id number] [place] [address] July, [facility] [place] [facility] [address] [id number] [place] [address] Jun, [facility] [place] [facility] [address] [id number] [place] [address] Jun, [facility] [place] [facility] [address] [id number] [place] [address] 27 May, 2013 [facility] [place] [facility] [address] [id number] [place] [address] 27 May, 2013 [facility] [place] [facility] [address] [id number] [place] [address] 27 May, 2013 [facility] [place] [facility] [address] [id number] [place] [address] May, [facility] [place] [facility] [address] [id number] [place] [address] 14 May, 2013 [facility] [place] [facility] [address] [id number] [place] [address] May, [facility] [place] [facility] [address] [id number] [place] [address] May, [facility] [place] [facility] [address] [id number] [place] [address] May, [facility] [place] [facility] [address] [id number] [place] [address] Apr, [facility] [place] [facility] [address] [id number] [place] [address] Apr, [facility] [place] [facility] [address] [id number] [place] [address] Apr, [facility] [place] [facility] [address] [id number] [place] [address] Apr, [facility] [place] [facility] [address] [id number] [place] [address] Apr, [facility] [place] [facility] [address] [id number] [place] [address] Apr, [facility] [place] [facility] [address] [id number] [place] [address] Apr, [facility] [place] [facility] [address] [id number] [place] [address] Apr, [facility] [address] [id number] [place] [address] Mar, [facility] [address] [id number] [place] [address] Mar, [facility] [address] [id number] [place] [address] Mar, [facility] [address] [id number] [place] [address] Mar, [facility] [address] [id number] [place] [address] Mar, [facility] [address] [id number] [place] [address] Mar, [facility] [address] [id number] [place] [address] Mar, [facility] [address] [id number] [place] [address] Mar, [facility] [address] [id number] [place] [address] Mar, [facility] [address] [id number] [place] [address] Mar, [facility] [address] [id number] [place] [address] Feb, [facility] [address] [id number] [place] [address] Feb, [facility] [place] [facility] [address] [id number] [place] [address] Feb, [facility] [address] [id number] [place] [address] Feb, [facility] [address] [id number] [place] [address] Jan, [facility] [place] [facility] [address] [id number] [place] [address] Jan, [facility] [place] [facility] [address] [id number] [place] [address] Dec, [facility] [place] [facility] [address] [id number] [place] [address] 30 Dec, 2012 [facility] [place] [facility] [address] [id number] [place] [address] Dec, [facility] [place] [facility] [address] [id number] [place] [address] Dec, [facility] [place] [facility] [address] [id number] [place] [address] Dec, [facility] [place] [facility] [address] [id number] [place] [address] Dec, [facility] [place] [facility] [address] [id number], [place] [address] Dec, [facility] [place] [facility] [address] [id number] [place] [address] 2627 Dec, [facility] [place] [facility] [address] [id number], [place] [address] Dec, [facility] [place] [facility] [address] [id number], [place] [address] 67[address] Dec, [facility] [place] [facility] [address] [id number], [place] [address] Dec, [facility] [place] [facility] [address] [id number] [place] [address] Dec, [facility] [place] [facility] [address] [id number], [place] [address]698 Dec, [facility] [place] [facility] [address] [id number], [place] [address] Nov, [facility] [place] [facility] [address] [id number] [place] [address]69 24 Nov, 2012 [facility] [address] [id number] [place] [address] 1667 Nov, [facility] [place] [facility] [address] [id number] [place] [address] 7968 Nov, [facility] [place] [facility] [address] [id number] [place] [address] 2[address] Nov, [facility] [place] [facility] [address] [id number] [place] [address] 3741 Oct, [facility] [place] [facility] [address] [id number] [place] [address] 3698 Oct, [facility] [place] [facility] [address] [id number] [place] [address] 7617 Oct, [facility] [address] [id number] [place] [address] 3887 Oct, [facility] [place] [facility] [address] [id number] [place] [address] 4942 Oct, [facility] [place] [facility] [address] [id number] [place] [address] 7160 Oct, [facility] [place] [facility] [address] [id number] [place] [address] 6006 Oct, [facility] [place] [facility] [address] [id number] [place] [address] 1792 Sep, [facility] [place] [facility] [address] [id number] [place] [address] 2232 Sep, [facility] [place] [facility] [address] [id number] [place] [address] 0427 Sep, [facility] [place] [facility] [address] [id number] [place] [address] 2424 Aug, [facility] [place] [facility] [address] [id number] [place] [address] 4370 Aug, [facility] [place] [facility] [address] [id number] [place] [address] 4698 Aug, [facility] [address] [id number] [place] [address] 0436 Aug, [facility] [place] [facility] [address] [id number] [place] [address] 1220 July, [facility] [address] [id number] [place] [address] 6134 July, [facility] [address] [id number] [place] [address] 3941 July, [facility] [address] [id number] [place] [address] 4538 July, [facility] [address] [id number] [place] [address] 8[address] Jun, [facility] [address] [id number] [place] [address] 9961 Jun, [facility] [address] [id number] [place] [address] 4[address] May, [facility] [address] [id number] [place] [address] 8139 May, [facility] [address] [id number] [place] [address] 6618 Apr, [facility] [address] [id number] [place] [address] 5400 Apr, [facility] [address] [id number] [place] [address] Feb, [facility] [place] [facility] [address] [id number] [place] [address] 8817 Feb, [facility] [place] [facility] [address] [id number] [place] [address] 6167 Feb, [facility] [place] [facility] [address] [id number], [place] [address] 455[address] Feb, [facility] [place] [facility] [address] [id number] [place] [address] 7955 Feb, [facility] [place] [facility] [address] [id number] [place] [address] Feb, [facility] [place] [facility] [address] [id number] [place] [address]- 7768 Jan, [facility] [place] [facility] [address] [id number] [place] [address]- 0681 Jan, [facility] [place] [facility] [address] [id number] [place] [address]- 4773 Jan, [facility] [place] [facility] [address] [id number] [place] [address]- 4213 Jan, [facility] [place] [facility] [address] [id number] [place] [address]- 6673 Jan, [facility] [place] [facility] [address] [id number] [place] [address]- 7223 Jan, [facility] [place] [facility] [address] [id number] [place] [address]- 1991 Jan, [facility] [place] [facility] [address] [id number] [place] [address] Jan, [facility] [place] [facility] [address] [id number], [place] [address] 15 Jan, 2012 [facility] [place] [facility] [address] [id number], [place] [address]- 9545 Jan, [facility] [place] [facility] [address] [id number] [place] [address] 0820 Jan, [facility] [place] [facility] [address] [facility] [id number], [place] [address] 2414 Jan, [facility] [place] [facility] [address] [id number], [place] [address] 9655 Jan, [facility] [place] [facility] [address] [id number] [place] [address] 3041 Dec, [facility] [address] [id number] [place] [address] 5914 Dec, [facility] [place] [facility] [address] [id number] [place] [address]- 5796 Dec, [facility] [address] [id number] [place] [address]- 7558 Dec, [facility] [place] [facility] [address] [id number] [place] [address]- 0030 Dec, [facility] [address] [id number] [place] [address] 0349 Dec, [facility] [place] [facility] [address] [id number] [place] [address]- 7857 Dec, [facility] [place] [facility] [address] [id number] [place] [address]- 1530 Nov, [facility] [place] [facility] [address] [id number] [place] [address]- 5169 Nov, [facility] [place] [facility] [address] [id number] [place] [address]- 4583 Oct, [facility] [address] [id number] [place] [address]- 9846 Oct, [facility] [place] [facility] [address] [id number] [place] [address]- 4786 Sep, [facility] [place] [facility] [address] [id number] [place] [address]- 2544 Sep, [facility] [place] [facility] [address] [id number] [place] [address]- 1455 Sep, [facility] [place] [facility] [address] [id number] [place] [address]- 2546 Sep, [facility] [place] [facility] [address] [id number] [place] [address]- 2112 July, [facility] [address] [id number] [place] [address]- 5889 July, [facility] [place] [facility] [address] [id number] [place] [address]- 1706 July, [facility] [place] [facility] [address] [id number] [place] [address]- 2686 Jun, [facility] [place] [facility] [address] [id number] [place] [address]- 7746 Jun, [facility] [address] [id number] [place] [address]- 7343 Jun, [facility] [place] [facility] [address] [id number] [place] [address]- 1176 16 Jun, 2011 [facility] [place] [facility] [address] [id number] [place] [address]- 7933 Jun, [facility] [address] [id number] [place] [address]- 5038 Jun, [facility] [place] [facility] [address] [id number] [place] [address]- 3517 Jun, [facility] [place] [facility] [address] [id number] [place] [address]- 1817 Jun, [facility] [place] [facility] [address] [id number] [place] [address]- 2010 Jun, [facility] [place] [facility] [address] [id number], [place] [address]- 2611 May, [facility] [place] [facility] [address] [id number] [place] [address]- 1473 May, [facility] [place] [facility] [address] [id number] [place] [address]- 2806 May, [facility] [place] [facility] [address] [id number] [place] [address]- 6815 May, [facility] [place] [facility] [address] [id number], [place] [address] 2546 May, [facility] [address] [id number] [place] [address]- 8034 Apr, [facility] [place] [facility] [address] [id number] [place] [address]- 0986 Mar, [facility] [place] [facility] [address] [facility] [id number] [place] [address]- 8666 Mar, [facility] [place] [facility] [address] [id number] [place] [address]- 2959 Feb, [facility] [place] [facility] [address] [id number] [place] [address] 1957 Feb, [facility] [place] [facility] [address] [facility] [id number] [place] [address]- 0096 Feb, [facility] [address] [facility] [id number] [place] [address]- 2784 Jan, [facility] [place] [facility] [address] [facility] [id number] [place] [address]- 3242 Dec, [facility] [place] [facility] [address] [facility] [id number] [place] [address]- 0185 Dec, [facility] [place] [facility] [address] [facility] [id number] [place] [address]- 7933 Dec, [facility] [place] [facility] [address] [facility] [id number] [place] [address]- 3187 July, [facility] [place] [facility] [address] [id number] [place] [address] 2546 May, [facility] [place] [facility] [address] [id number] [place] [address]- 7708 Feb, [facility] [place] [facility] [address] [facility] [id number] [place] [address] 2546 Feb, [facility] [place] [facility] [address] [facility] [id number] [place] [address]- 8556 Feb, [facility] [place] [facility] [address] [id number] [place] [address]- 6780 12 Jan, 2010 [facility] [place] [facility] [address] [id number] [place] [address]- 5006 26 Dec, 2009 [facility] [place] [facility] [address] [id number] [place] [address] 2546 13 Dec, 2009 [facility] [place] [facility] [address] [id number] [place] [address]- 3696 Oct, [facility] [place] [facility] [address] [id number] [place] [address]- 3164 July, [facility] [place] [facility] [address] [id number] [place] [address]- 0883 18 Apr, 2009 [facility] [place] [facility] [address] [id number] [place] [address]- 3960 Mar, [facility] [place] [facility] [address] [id number] [place] [address]- 1958 18 Feb, 2009 [facility] [place] [facility] [address] [id number] [place] [address]- 9603 18 Feb, 2009 [facility] [place] [facility] [address] [id number] [place] [address]- 9296 03 Feb, 2009 [facility] [place] [facility] [address] [facility] [id number] [place] [address]- 2886 02 Feb, 2009 [facility] [place] [facility] [address] [id number] [place] [address] 254 02 Feb, 2009 [facility] [place] [facility] [address] [id number] [place] [address]- 2622 18 Jan, 2009 [facility] [place] [facility] [address] [id number] [place] [address] 2546 18 Jan, 2009 [facility] [place] [facility] [address] [id number] [place] [address] 2541 20 Dec, 2008 [facility] [place] [facility] [address] [id number] [place] [address] 6363 14 Nov, 2008 IMMUNIZATIONS No Known Immunizations SOCIAL HISTORY Never Assessed REASON FOR VISIT Lab (walk-in) PLAN OF CARE VITAL SIGNS MEDICATIONS Unknown Medications RESULTS No Results PROCEDURES Procedure Date Ordered Result Body Site ROUTINE VENIPUNCTURE 2017-09-28 N/A [facility], 2017 INSTRUCTIONS MEDICATIONS ADMINISTERED No Known Medications [...] left knee replacement 2018 Hospitalization History [facility]- Right knee surgery. discharged 01/27/17 Hospitalization History [facility]- Left knee replacement 06/16/2017
--- NOTE | 2018-02-11 11:09 | ED Cough/URI ---
General Stated Complaint: SOB/COUGH Source: patient, family Exam Limitations: no limitations History of Present Illness Date Seen by Provider: Feb 11, 2018 Time Seen by Provider: 11:07 Initial Comments To ER with reports of shortness of breath, feels like he is breathing through a straw and nonproductive cough for one week. No fevers or chills. He's been told that he has COPD in the past. He has a nebulizer at home but has not used this for about a month. He does use his inhaler. No fevers or chills. He does follow with Dr. Carrillo from pulmonology. he does also have a sharp left-sided chest pain worse with deep breathing. Timing/Duration: constant, week Severity/Quality: moderate, dry cough Associated Symptoms: cough Allergies and Home Medications Allergies Coded Allergies: hydrocodone (Verified Allergy, Unknown, HAS HAD PERCOCET & MORPHINE IN THE PAST W/O ISSUE, 06/10/16) Home Medications Amlodipine Besylate 10 Mg Tablet, 10 MG PO DAILY, (Reported) Aspirin 81 Mg Tablet.dr, 81 MG PO DAILY, (Reported) Budesonide/Formoterol Fumarate 10.2 Gm Hfa.aer.ad, 2 PUFF IH BID, (Reported) Calcium Carbonate/Mag Oxide/Zn 1 Each Tablet, 2 TAB PO DAILY, (Reported) Cholecalciferol (Vitamin D3) 1,000 Unit Tablet, 2,000 UNIT PO DAILY, (Reported) TAKES 2 (1,000 UNIT) TABLETS Fluticasone Propionate 9.9 Ml Almond.susp, 2 SPRAYS NS DAILY, (Reported) Gabapentin 300 Mg Capsule, 300 MG PO HS, (Reported) Hydrochlorothiazide 50 Mg Tablet, 50 MG PO DAILY, (Reported) Levothyroxine Sodium 50 Mcg Tablet, 50 MCG PO HS, (Reported) TAKES ALONG WITH 200MCG TABLET FOR A TOTAL DAILY DOSE OF 250MCG Levothyroxine Sodium 200 Mcg Tablet, 200 MCG PO HS, (Reported) TAKES ALONG WITH (50MCG) TABLET FOR A TOTAL DAILY DOSE OF 250MCG Meloxicam 15 Mg Tablet, 15 MG PO HS, (Reported) [place] 3 Polyunsat Fatty Acids 1,000 Mg Cap, 2,000 MG PO DAILY, (Reported) TAKES 2 (1,000 MG) CAPSULES Omeprazole 20 Mg Capsule.dr, 20 MG PO HS, (Reported) Oxycodone HCl/Acetaminophen 1 Each Tablet, 1 EACH PO Q4H Prescribed by: TAE RUTH on 06/16/17 0734 Quinapril HCl 20 Mg Tablet, 60 MG PO DAILY, (Reported) TAKES 3 (20MG) TABLETS Patient Home Medication List Home Medication List Reviewed: Yes Review of Systems Review of Systems Constitutional: see HPI EENTM: see HPI Respiratory: see HPI, cough Cardiovascular: no symptoms reported Genitourinary: no symptoms reported Musculoskeletal: no symptoms reported Skin: no symptoms reported Psychiatric/Neurological: No Symptoms Reported Past Vlabecc-Xfdjiy-Elkxza Hx Patient Social History Type Used: Cigarettes Former Smoker, Quit: Jan 21, 1980 Recent Foreign Travel: No Contact w/Someone Who Travel: No Recent Hopitalizations: No Immunizations Up To Date Tetanus Booster (TDap): Less than 5yrs Date of Pneumonia Vaccine: Mar 22, 2014 Date of Influenza Vaccine: Dec 10, 2016 Seasonal Allergies Seasonal Allergies: Yes Past Medical History Surgeries: No (RT KNEE SCOPE, VASECTOMY THEN REVERSAL, FOOT SX, LEFT RCR) Gallbladder, Orthopedic, Vasectomy Respiratory: Yes Asthma, Sleep Apnea Currently Using CPAP: Yes Cardiac: Yes Hypertension Neurological: Yes Headaches /Migraines Reproductive Disorders: No Sexually Transmitted Disease: No HIV/AIDS: No Genitourinary: No Prostate Problems Gastrointestinal: Yes Gastroesophageal Reflux, Hiatal Hernia Musculoskeletal: Yes (LEFT KNEE SEVERE OSTEOARTHRITIS) Degenerate Disk Disease, Arthritis Endocrine: Yes Hypothyroidsim HEENT: No Loss of Vision: Denies Hearing Impairment: Denies Cancer: No Psychosocial: No Integumentary: No Blood Disorders: No Adverse Reaction/Blood Tranf: No (N/A) Family Medical History Arthritis 19 FATHER 19 MOTHER G8 BROTHER G8 SISTER Cardiovascular disease 19 FATHER 19 MOTHER Dementia 19 FATHER Diabetes mellitus 19 FATHER G8 BROTHER Hypertension 19 FATHER 19 MOTHER CAD Over 55 Years Old, Diabetes, Hypertension Physical Exam Vital Signs - First Documented 02/11/18 10:59 Temp 97.8 Pulse 74 Resp 22 B/P (MAP) 170/102 (124) Pulse Ox 95 O2 Delivery Room Air Capillary Refill : Height: 5'11.00" Weight: 320lbs. 0.0oz. 145.834770oh; 44.6 BMI Method:Stated General Appearance: WD/WN, no apparent distress, obese ( I,) Eyes: Bilateral Eye Normal Inspection, Bilateral Eye PERRL, Bilateral Eye EOMI HEENT: PERRL/EOMI, normal ENT inspection Neck: non-tender, full range of motion Respiratory: no respiratory distress, no accessory muscle use, decreased breath sounds; No wheezing Cardiovascular: regular rate, rhythm, no murmur Gastrointestinal: normal bowel sounds, non tender, soft Neurologic/Psychiatric: alert, normal mood/affect, oriented x 3 Skin: normal color, warm/dry Progress/Results/Core Measures Suspected Sepsis SIRS Temperature: Pulse: Respiratory Rate: Laboratory Tests 02/11/18 11:10: White Blood Count 8.0 Blood Pressure / Mean: Laboratory Tests 02/11/18 11:10: Creatinine 1.01, Platelet Count 248, Total Bilirubin 0.5 Results/Orders Lab Results Laboratory Tests Test 02/11/18 11:10 02/11/18 11:32 Range/Units White Blood Count 8.0 4.3-11.0 10^3/uL Red Blood Count 3.81 L 4.35-5.85 10^6/uL Hemoglobin 12.6 L 13.3-17.7 G/DL Hematocrit 37 L 40-54 % Mean Corpuscular Volume 97 80-99 FL Mean Corpuscular Hemoglobin 33 25-34 PG Mean Corpuscular Hemoglobin Concent 34 32-36 G/DL Red Cell Distribution Width 14.3 10.0-14.5 % Platelet Count 248 130-400 10^3/uL Mean Platelet Volume 10.6 H 7.4-10.4 FL Neutrophils (%) (Auto) 78 H 42-75 % Lymphocytes (%) (Auto) 10 L 12-44 % Monocytes (%) (Auto) 9 0-12 % Eosinophils (%) (Auto) 3 0-10 % Basophils (%) (Auto) 0 0-10 % Neutrophils # (Auto) 6.2 1.8-7.8 X 10^3 Lymphocytes # (Auto) 0.8 L 1.0-4.0 X 10^3 Monocytes # (Auto) 0.8 0.0-1.0 X 10^3 Eosinophils # (Auto) 0.2 0.0-0.3 10^3/uL Basophils # (Auto) 0.0 0.0-0.1 10^3/uL Sodium Level 139 135-145 MMOL/L Potassium Level 3.9 3.6-5.0 MMOL/L Chloride Level 105 98-107 MMOL/L Carbon Dioxide Level 22 21-32 MMOL/L Anion Gap 12 5-14 MMOL/L Blood Urea Nitrogen 21 H 7-18 MG/DL Creatinine 1.01 0.60-1.30 MG/DL Estimat Glomerular Filtration Rate > 60 BUN/Creatinine Ratio 21 Glucose Level 113 H 70-105 MG/DL Calcium Level 9.3 8.5-10.1 MG/DL Corrected Calcium 9.1 8.5-10.1 MG/DL Total Bilirubin 0.5 0.1-1.0 MG/DL Aspartate Amino Transf (AST/SGOT) 33 5-34 U/L Alanine Aminotransferase (ALT/SGPT) 26 0-55 U/L Alkaline Phosphatase 125 40-136 U/L Troponin I < 0.30 <0.30 NG/ML B-Type Natriuretic Peptide 33.2 <100.0 PG/ML Total Protein 7.7 6.4-8.2 GM/DL Albumin 4.2 3.2-4.5 GM/DL Blood Gas Puncture Site R RAD Blood Gas Patient Temperature 98.3 Arterial Blood pH 7.43 7.37-7.43 Arterial Blood Partial Pressure CO2 38 35-45 MMHG Arterial Blood Partial Pressure O2 83 79-93 MMHG Arterial Blood HCO3 25 23-27 MMOL/L Arterial Blood Total CO2 25.7 21.0-31.0 MMOL/L Arterial Blood Oxygen Saturation 96 94-100 % Arterial Blood Base Excess 0.7 -2.5-2.5 MMOL/L Thai Test YES-POS Blood Gas Ventilator Setting NO Blood Gas Inspired Oxygen RM AIR My Orders Orders - PAOLA QUICK APRN Cbc With Automated Diff (02/11/18 11:06) Comprehensive Metabolic Panel (02/11/18 11:06) Troponin I (02/11/18 11:06) Ekg Tracing (02/11/18 11:06) Continuous Ekg Monitoring (02/11/18 11:06) BNP (02/11/18 11:06) Chest Pa/Lat (2 View) (02/11/18 11:06) Iv Heplock-Insert (Order) (02/11/18 11:06) Albuterol/Ipra Inhalation Soln (Duoneb I (02/11/18 11:15) Arterial Blood Gas (02/11/18 11:32) Lidocaine/Epi 2% 1:100,000 (Xylocaine/Ep (02/11/18 11:47) Bupivacaine 0.5% Injection (Sensorcaine (02/11/18 11:47) Medications Given in ED Current Medications Medications Dose Ordered Sig/Bre Route Start Time Stop Time Status Last Admin Dose Admin Albuterol/ Ipratropium 3 ml STK-MED ONCE .ROUTE 02/11/18 11:15 02/11/18 11:17 DC 02/11/18 11:25 3 ML Vital Signs/I&O 02/11/18 02/11/18 10:59 11:25 Temp 97.8 Pulse 74 Resp 22 B/P (MAP) 170/102 (124) Pulse Ox 95 96 O2 Delivery Room Air Room Air Capillary Refill : Diagnostic Imaging Diagonstic Imaging: Xray Plain Films/CT/US/NM/MRI: chest Comments NAME: MARY LORA MED REC#: [id number] PT STATUS: REG ER : 1950 PHYSICIAN: PAOLA QUICK APRN ADMIT DATE: 02/11/18/ER Draft Date of Exam:02/11/18 CHEST PA/LAT (2 VIEW) EXAM: PA and lateral chest COMPARISON to a prior study from 12/03/2017 INDICATION: Shortness of breath. Cough and left chest pain. FINDINGS: Chronic interstitial changes are demonstrated within the lungs. These appear unchanged from the prior examination. There is flattening of the diaphragms compatible with air trapping. There is no focal alveolar consolidation demonstrated or evidence of an effusion. There is no pneumothorax. Heart size and mediastinal contours appear unchanged. Central pulmonary vascularity appears within normal limits. IMPRESSION: 1. Background features of interstitial lung disease with findings suggesting COPD and air trapping. No new superimposed acute process evident. Dictated on workstation # [id number] Dict: 02/11/18 1137 Trans: 02/11/[address] [facility] [id number] Interpreted by: DL AYON MD Electronically signed by: Departure Impression Primary Impression: COPD exacerbation Disposition: 01 HOME, SELF-CARE Condition: Stable Departure-Patient Inst. Decision time for Depature: 11:58 Referrals: [facility] [place] ([place]P/Family) Primary Care Physician Patient Instructions: Exacerbation of COPD Add. Discharge Instructions: 1. Use your nebulizer machine every 4 hours for the next 2-3 days even if you do not feel short of breath. After the next 2-3 days then you may use it on an as-needed basis. Take the steroids as directed starting tonight. Take antibiotics as directed. Return to ER for any worsening. Follow-up with your doctor next week. Scripts Albuterol Sulfate (Albuterol Sulfate) 2.5 Mg/3 Ml Vial.neb 2.5 MG IH Q4H PRN for DYSPNEA, #25 EA Prov: PAOLA QUICK APRN 02/11/18 Cefuroxime Axetil (Cefuroxime) 250 Mg Tablet 250 MG PO BID, #10 TAB Prov: PAOLA QUICK APRN 02/11/18 Prednisone (Prednisone) 20 Mg Tab 40 MG PO DAILY, #8 TAB Prov: PAOLA QUICK APRN 02/11/18 PAOLA QUICK APRN Feb 11, 2018 11:09
--- OUTSIDE RECORDS SUMMARY | 2018-02-11 11:09 | XMS REPORT ---
Author Author TAMMY COPELAND [facility] Address [address] [place] [address] Care Team Providers Care Blindstitch Lapel Padder Name Role Phone MIN TAMMY Unavailable PROBLEMS Type Condition ICD9-CM Code OUB30-AI Code Onset Dates Condition Status SNOMED Code Problem Arthritis M19.90 Active 9125001 Problem Allergic state, subsequent encounter T78.40XD Active 342805775 Problem Hypothyroidism (acquired) E03.9 Active 257222101 Problem Mild intermittent asthma with exacerbation J45.21 Active 609328892 Problem COPD with exacerbation J44.1 Active 381266924 Problem Obstructive sleep apnea (adult) (pediatric) G47.33 Active 27190237 Problem Dependence on other enabling machines and devices Z99.89 Active 574602999 Problem Body mass index (BMI) of 45.0-49.9 in adult Z68.42 Active 078195464 Problem Morbid (severe) obesity due to excess calories E66.01 Active 785679170 ALLERGIES No Information ENCOUNTERS Encounter Location Date Diagnosis [place] [id number] [place] [address] 41791- 3858 Oct, Prediabetes R73.03 [place] [address] [id number] [place] [address] 87548- 4435 Oct, Essential hypertension I10 and Hypothyroidism (acquired) E03.9 [facility] [id number] [place] [address] 66225- 3572 Oct, [place] [address] [id number] [place] [address] 91050- 8253 Oct, [place] [address] [address] [id number] [place] [address] 82315- 8121 Oct, Essential hypertension I10 ; Hypothyroidism (acquired) [...] and Obstructive sleep apnea (adult) (pediatric) G47.33 [facility] [id number] [place] [address] 86823 -8050 Sep, Mild intermittent asthma with exacerbation J45.21 [facility] [id number] [place] [address] 20860- 0358 Sep, [place] [address] 29069- 0085 Sep, Long-term use of high-risk medication Z79.899 [place] [address] 83067- 2318 Sep, Long-term use of high-risk medication Z79.899 [facility] [id number] [place] [address] 93221- 2935 July, [facility] [id number] [place] [address] 19334- 8404 Jun, [facility] [address] [id number] [place] [address] 67841- 9424 May, Asthma J45.909 [facility] [address] 32461- 9592 May, [facility] [address] [id number] [place] [address] 89290- 9225 27 Apr, 2017 Pre-op evaluation Z01.818 ; Allergic state, subsequent encounter T78.40XD and BMI 45.0-49.9, adult Z68.42 [facility] [address] [id number] [place] [address] 05950- 2789 Mar, [place] [address] 22035- 9557 Mar, [facility] [address] 19410 -3560 Mar, Cough R05 ; Acute nasopharyngitis J00 and BMI 45.0-49.9, adult Z68.42 [facility] [address] 43383- 2768 Mar, [facility] [address] 28646- 6547 Jan, Ganglion cyst of finger of right hand M67.441 [place] [address] 79455- 2284 Dec, [place] [address] 75407- 8417 Dec, Change in vision H53.9 ; Arthritis M19.90 ; Essential hypertension I10 ; GERD with esophagitis K21.0 ; Hypothyroidism (acquired) E03.9 and Ganglion cyst of joint of finger of left hand M67.442 [place] [address] 38000- 6635 15 Nov, 2016 Encounter for immunization Z23 [facility] [address] 71878- 8639 07 Nov, 2016 [facility] [address] 84938- 6715 Sep, [facility] [address] 83614- 5782 Aug, [place] [address] 98697- 3755 July, Cyst of joint of right hand M25.841 [place] [address] 68624- 5878 May, [place] [address] 82830- 6834 May, Fever, unspecified R50.9 and Influenza A J10.1 [place] [address] 30164- 5338 May, Left shoulder pain, unspecified chronicity M25.512 [place] [address] 34637- 6276 Apr, [place] [address] 69876- 5798 Apr, Infraspinatus tendon tear, left, subsequent encounter S46.812D and Supraspinatus tendon tear, left, subsequent encounter S46.812D [place] [address] 37929- 4102 Apr, [place] [address] 01164- 2532 Mar, Left shoulder pain, unspecified chronicity M25.512 [place] [address] [place] [id number] [place] [address] 49425- 8107 Mar, [place] [address] [place] [id number] [place] [address] 23504- 4991 Mar, Left shoulder pain, unspecified chronicity M25.512 [place] [address] [place] [id number] [place] [address] 33353- 3599 Feb, Chronic superficial gastritis without bleeding K29.30 ; Left upper quadrant pain R10.12 ; Essential hypertension I10 ; Dyspnea on exertion R06.09 and Palpitations R00.2 [place] [address] [place] [id number] [place] [address] 87426- 4904 Jan, Colon polyps K63.5 [place] [address] [place] [id number] [place] [address] 20096- 8194 Jan, Colon polyps K63.5 [place] [address] [place] [id number] [place] [address] 86998- 8855 Dec, [facility] [id number] [place] [address] 57039 -9582 Dec, GERD with esophagitis K21.0 [facility] [id number] [place] [address] 74908- 3355 Nov, Arthritis pain M19.90 ; Colon polyps K63.5 ; Seasonal allergic rhinitis due to pollen J30.1 and Encounter for immunization Z23 [facility] [address] 23154- 5905 Nov, [facility] [address] [place] [id number] [place] [address] 57847- 8801 Oct, [facility] [address] 44650- 2530 Sep, [facility] [address] 19332- 9350 July, [facility] [address] 13580- 8116 July, [facility] [address] [place] [id number] [place] [address] 46904- 8612 July, Asthma with acute exacerbation J45.901 and Bronchitis J40 [facility] [address] [place] [id number] [place] [address] 78485- 7193 Jun, [facility] [id number] [place] [address] 42231- 6547 May, Other specified hypothyroidism E03.8 and 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 [facility] [address] [id number] [place] [address] 98484- 4427 Apr, [facility] [id number] [place] [address] 02663- 6646 Apr, Sacroiliac joint pain M53.3 [facility] [address] 65776- 6002 Mar, Other specified hypothyroidism E03.8 ; Restless legs syndrome G25.81 ; Asthma with acute exacerbation J45.901 and Bronchitis J40 [facility] [address] 62463 -5007 Feb, Upper respiratory symptom R09.89 [facility] [address] 28832- 1987 Feb, Restless leg G25.81 and Asthma J45.909 [place] [address] 60814- 9212 Dec, Rupture of tendon of right shoulder S46.911A [place] [address] 15579- 3795 Dec, Sacroiliac joint pain M53.3 [place] [address] 92399- 7255 30 Nov, 2014 [place] [address] 74410- 2181 28 Nov, 2014 Lumbago of lumbosacaral region with sciatica 724.2 and Sacroiliitis 720.2 [place] [address] 44303- 4685 Nov, Influenza vaccine administered V04.81 [place] [address] 89499- 4754 Nov, [place] [address] 80035- 8809 Nov, [place] [address] 75269- 6795 18 Nov, 2014 Thyroid function test abnormal 794.5 and Thyroid antibody positive 795.79 [place] [address] 89933- 3567 16 Nov, 2014 Hypothyroidism 244.9 ; Thyroid antibody positive 795.79 and Right shoulder pain 719.41 [place] [address] [place] [id number] [place] [address] 13870- 2610 Oct, [facility] [id number] [place] [address] 70587- 4396 Oct, Thyroid function test abnormal 794.5 [facility] [id number] [place] [address] 60223- 2773 Oct, Hypertension 401.9 and Bilateral leg pain 729.5 [facility] [id number] [place] [address] 99331- 4491 Oct, [facility] [id number] [place] [address] 75656- 6624 Oct, Bilateral leg pain 729.5 and Hypertension 401.9 [facility] [id number] [place] [address] 09346- 6942 Sep, Bilateral leg pain 729.5 ; Hypertension 401.9 and Edema 782.3 [facility] [id number] [place] [address] 74813- 3225 Aug, Unspecified hereditary and idiopathic peripheral neuropathy 356.9 and Arthritis 716.90 [facility] [id number] [place] [address] 09723- 0877 Aug, [facility] [id number] [place] [address] 76634- 4735 July, [facility] [id number] [place] [address] 13707- 6616 Jun, [facility] [id number] [place] [address] 65916- 0383 Jun, [facility] [id number] [place] [address] 72553- 1502 Jun, [facility] [id number] [place] [address] 50848- 1357 May, [facility] [id number] [place] [address] 22431- 5208 May, [facility] [place] [facility] [address] [id number] [place] [address]- 7389 May, [facility] [place] [facility] [address] [id number] [place] [address]- 8598 May, [facility] [place] [facility] [address] [facility] [id number] [place] 3502 May, [facility] [place] [facility] [address] [id number] [place] [address]- 4182 16 May, 2014 [facility] [place] [facility] [address] [id number] [place] [address]- 5988 May, [facility] [place] [facility] [address] [id number] [place] [address]- 1932 May, [facility] [place] [facility] [address] [facility] [id number] [place] [address]- 4612 May, [facility] [place] [facility] [address] [id number] [place] [address]- 2714 May, [facility] [place] [facility] [address] [facility] [id number] [place] [address]- 5323 May, [facility] [place] [facility] [address] [facility] [id number] [place] [address]- 6495 Apr, 2014 [facility] [place] [facility] [address] [facility] [id number] [place] [address]- 1559 Apr, 2014 [facility] [place] [facility] [address] [id number] [place] [address]- 2149 Apr, 2014 [facility] [place] [facility] [address] [id number] [place] [address]- 6480 Apr, 2014 [facility] [place] [facility] [address] [facility] [id number] [place] [address]- 4415 Apr, 2014 [facility] [place] [facility] [address] [facility] [id number] [place] [address]- 5040 Apr, 2014 [facility] [place] [facility] [address] [id number] [place] [address]- 2336 Apr, [facility] [place] [facility] [address] [id number] [place] 6282 Apr, [facility] [place] [facility] [address] [id number] [place] [address]- 8023 Mar, [facility] [place] [facility] [address] [id number] [place] [address]- 6119 Mar, [facility] [place] [facility] [address] [id number] [place] [address]- 8421 Mar, [facility] [place] [facility] [address] [id number] [place] [address]- 2300 Mar, [facility] [place] [facility] [address] [id number] [place] [address]- 6608 Mar, [facility] [place] [facility] [address] [id number] [place] [address]- 4311 Mar, [facility] [place] [facility] [address] [id number] [place] [address]- 5650 Feb, [facility] [place] [facility] [address] [id number] [place] [address]- 7625 Feb, [facility] [place] [facility] [address] [id number] [place] [address]- 4999 Feb, [facility] [place] [facility] [address] [id number] [place] [address]- 5250 Feb, [facility] [place] [facility] [address] [id number] [place] [address]- 5182 Feb, [facility] [place] [facility] [address] [id number] [place] [address]- 2546 Feb, [facility] [place] [facility] [address] [id number] [place] 9531 Feb, [facility] [place] [facility] [address] [id number] [place] [address]- 3537 Feb, [facility] [place] [facility] [address] [id number] [place] [address]- 4170 Feb, [facility] [place] [facility] [address] [id number] [place] 3026 Feb, [facility] [place] [facility] [address] [id number] [place] 2836 Feb, [facility] [place] [facility] [address] [id number] [place] [address]- 2186 Feb, [facility] [place] [facility] [address] [id number] [place] [address]- 6733 Feb, [facility] [place] [facility] [address] [id number] [place] [address]- 4538 Feb, [facility] [place] [facility] [address] [id number] [place] [address]- 1190 Feb, [facility] [place] [facility] [address] [id number] [place] [address]- 4476 Feb, [facility] [place] [facility] [address] [id number] [place] [address]- 3170 Feb, [facility] [place] [facility] [address] [id number] [place] [address]- 8616 Feb, [facility] [place] [facility] [address] [id number] [place] [address]- 2091 Feb, [facility] [place] [facility] [address] [id number] [address]- 3888 Feb, [facility] [place] [facility] [address] [id number] [place] 4314 Feb, [facility] [place] [facility] [address] [id number] [place] [address]- 0038 Feb, [facility] [place] [facility] [address] [id number] [place] [address]- 7251 Feb, [facility] [place] [facility] [address] [id number] [place] [address]- 1763 Jan, [facility] [place] [facility] [address] [id number] [place] [address]- 6784 Jan, [facility] [place] [facility] [address] [id number] [place] [address]- 5093 Jan, [facility] [place] [facility] [address] [id number] [place] 7517 Jan, [facility] [place] [facility] [address] [id number] [place] [address]- 7637 Jan, [facility] [place] [facility] [address] [id number] [place] [address]- 3545 Jan, [facility] [place] [facility] [address] [id number] [place] [address]- 2443 Jan, [facility] [place] [facility] [address] [id number] [place] [address]- 0938 Jan, [facility] [place] [facility] [address] [id number] [place] [address]- 4659 Jan, [facility] [place] [facility] [address] [id number] [place] [address]- 0373 Dec, [facility] [place] [facility] [address] [facility] [id number] [place] [address]- 8984 Dec, [facility] [place] [facility] [address] [id number] [place] [address]- 7447 Dec, [facility] [place] [facility] [address] [id number] [place] [address]- 4791 Dec, [facility] [place] [facility] [address] [id number] [place] [address]- 7323 Dec, [facility] [place] [facility] [address] [id number] [place] [address]- 4385 Dec, [facility] [place] [facility] [address] [id number] [place] [address]- 8440 Dec, [facility] [place] [facility] [address] [id number] [place] [address]- 8715 Dec, [facility] [place] [facility] [address] [id number] [place] [address]- 5669 Dec, [facility] [place] [facility] [address] [id number] [place] [address]- 1904 Dec, [facility] [place] [facility] [address] [id number] [place] [address]- 8427 Nov, [facility] [place] [facility] [address] [id number] [place] [address]- 5897 Nov, [facility] [place] [facility] [address] [id number] [place] [address]- 2281 Nov, [facility] [place] [facility] [address] [id number] [place] [address]- 5726 Nov, [facility] [place] [facility] [address] [id number] [place] [address]- 4185 Nov, [facility] [place] [facility] [address] [id number] [place] [address]- 5427 Nov, [facility] [place] [facility] [address] [id number] [place] [address]- 1737 Nov, [facility] [place] [facility] [address] [id number] [place] [address]- 1843 Nov, [facility] [place] [facility] [address] [id number] [place] [address]- 2061 Nov, [facility] [place] [facility] [address] [id number] [place] [address]- 3120 Nov, [facility] [place] [facility] [address] [id number] [place] [address]- 8274 Oct, [facility] [place] [facility] [address] [id number] [place] [address]- 7062 Oct, [facility] [place] [facility] [address] [id number] [place] [address]- 3898 Oct, [facility] [place] [facility] [address] [id number] [place] [address]- 0035 Oct, [facility] [place] [facility] [address] [id number] [place] [address]- 0407 Oct, [facility] [place] [facility] [address] [id number] [place] [address]- 2631 Oct, [facility] [place] [facility] [address] [id number] [place] [address]- 5651 Oct, [facility] [place] [facility] [address] [id number] [place] [address]- 0861 Oct, [facility] [place] [facility] [address] [id number] [place] [address]- 6272 Oct, [facility] [place] [facility] [address] [id number] [place] [address]- 6146 Oct, [facility] [place] [facility] [address] [id number] [place] [address]- 3320 Sep, [facility] [place] [facility] [address] [id number] [place] [address]- 9496 Sep, [facility] [place] [facility] [address] [id number] [place] [address]- 6261 Aug, [facility] [place] [facility] [address] [id number] [place] [address]- 1061 Aug, [facility] [place] [facility] [address] [id number] [place] [address]- 6388 Aug, [facility] [place] [facility] [address] [id number] [place] [address]- 8636 Aug, [facility] [place] [facility] [address] [id number] [place] [address]- 6698 Aug, [facility] [place] [facility] [address] [id number] [place] [address]- 3669 Aug, [facility] [place] [facility] [address] [id number] [place] [address]- 4894 Aug, [facility] [address] [id number] [place] [address]- 8451 Aug, [facility] [place] [facility] [address] [id number] [place] [address]- 3039 Aug, [facility] [place] [facility] [address] [id number] [place] [address]- 8390 Aug, [facility] [place] [facility] [address] [id number] [place] [address]- 3568 Aug, [facility] [place] [facility] [address] [id number] [place] [address]- 9836 Aug, [facility] [place] [facility] [address] [id number] [place] [address]- 5138 July, [facility] [place] [facility] [address] [id number] [place] [address]- 2498 July, [facility] [address] [id number] [place] [address]- 7865 July, [facility] [place] [facility] [address] [id number] [place] [address]- 7813 July, [facility] [place] [facility] [address] [id number] [place] [address]- 4586 July, [facility] [place] [facility] [address] [id number] [place] [address] July, [facility] [place] [facility] [address] [id number] [place] [address] July, [facility] [place] [facility] [address] [id number] [place] [address] July, [facility] [place] [facility] [address] [id number] [place] [address] Jun, [facility] [place] [facility] [address] [id number] [place] [address] Jun, [facility] [place] [facility] [address] [id number] [place] [address] 27 May, 2013 [facility] [place] [facility] [address] [id number] [place] [address] 27 May, 2013 [facility] [place] [facility] [address] [id number] [place] [address] 27 May, 2013 [facility] [place] [facility] [address] [id number] [place] [address] May, [facility] [place] [facility] [address] [id number] [place] [address] 14 May, 2013 [facility] [place] [facility] [address] [id number] [place] [address] May, [facility] [place] [facility] [address] [id number] [place] [address] May, [facility] [place] [facility] [address] [id number] [place] [address] May, [facility] [place] [facility] [address] [id number] [place] [address] Apr, [facility] [place] [facility] [address] [id number] [place] [address] Apr, [facility] [place] [facility] [address] [id number] [place] [address] Apr, [facility] [place] [facility] [address] [id number] [place] [address] Apr, [facility] [place] [facility] [address] [id number] [place] [address] Apr, [facility] [place] [facility] [address] [id number] [place] [address] Apr, [facility] [place] [facility] [address] [id number] [place] [address] Apr, [facility] [place] [facility] [address] [id number] [place] [address] Apr, [facility] [address] [id number] [place] [address] Mar, [facility] [address] [id number] [place] [address] Mar, [facility] [address] [id number] [place] [address] Mar, [facility] [address] [id number] [place] [address] Mar, [facility] [address] [id number] [place] [address] Mar, [facility] [address] [id number] [place] [address] Mar, [facility] [address] [id number] [place] [address] Mar, [facility] [address] [id number] [place] [address] Mar, [facility] [address] [id number] [place] [address] Mar, [facility] [address] [id number] [place] [address] Mar, [facility] [address] [id number] [place] [address] Feb, [facility] [address] [id number] [place] [address] Feb, [facility] [place] [facility] [address] [id number] [place] [address] Feb, [facility] [address] [id number] [place] [address] Feb, [facility] [address] [id number] [place] [address] Jan, [facility] [place] [facility] [address] [id number] [place] [address] Jan, [facility] [place] [facility] [address] [id number] [place] [address] Dec, [facility] [place] [facility] [address] [id number] [place] [address] 30 Dec, 2012 [facility] [place] [facility] [address] [id number] [place] [address] Dec, [facility] [place] [facility] [address] [id number] [place] [address] Dec, [facility] [place] [facility] [address] [id number] [place] [address] Dec, [facility] [place] [facility] [address] [id number] [place] [address] Dec, [facility] [place] [facility] [address] [id number], [place] [address] Dec, [facility] [place] [facility] [address] [id number] [place] [address] Dec, [facility] [place] [facility] [address] [id number], [place] [address] Dec, [facility] [place] [facility] [address] [id number], [place] [address] Dec, [facility] [place] [facility] [address] [id number], [place] [address] Dec, [facility] [place] [facility] [address] [id number] [place] [address]- [address]84 Dec, [facility] [place] [facility] [address] [id number], [place] [address] Dec, [facility] [place] [facility] [address] [id number], [place] [address] Nov, [facility] [place] [facility] [address] [id number] [place] [address] 24 Nov, 2012 [facility] [address] [id number] [place] [address] Nov, [facility] [place] [facility] [address] [id number] [place] [address]- 0537 Nov, [facility] [place] [facility] [address] [id number] [place] [address] Nov, [facility] [place] [facility] [address] [id number] [place] [address] Oct, [facility] [place] [facility] [address] [id number] [place] [address] Oct, [facility] [place] [facility] [address] [id number] [place] [address] Oct, [facility] [address] [id number] [place] [address] Oct, [facility] [place] [facility] [address] [id number] [place] [address] Oct, [facility] [place] [facility] [address] [id number] [place] [address] Oct, [facility] [place] [facility] [address] [id number] [place] [address] Oct, [facility] [place] [facility] [address] [id number] [place] [address] Sep, [facility] [place] [facility] [address] [id number] [place] [address] 94[address] Sep, [facility] [place] [facility] [address] [id number] [place] [address] Sep, [facility] [place] [facility] [address] [id number] [place] [address] Aug, [facility] [place] [facility] [address] [id number] [place] [address] Aug, [facility] [place] [facility] [address] [id number] [place] [address] 9[address] Aug, [facility] [address] [id number] [place] [address] 98[address] Aug, [facility] [place] [facility] [address] [id number] [place] [address] 6228 July, [facility] [address] [id number] [place] [address] 6146 July, [facility] [address] [id number] [place] [address] July, [facility] [address] [id number] [place] [address] July, [facility] [address] [id number] [place] [address] Jun, [facility] [address] [id number] [place] [address]20 Jun, [facility] [address] [id number] [place] [address] 62[address] May, [facility] [address] [id number] [place] [address] 2619 May, [facility] [address] [id number] [place] [address] 58[address] Apr, [facility] [address] [id number] [place] [address] 8566 Apr, [facility] [address] [id number] [place] Feb, [facility] [place] [facility] [address] [id number] [place] [address] Feb, [facility] [place] [facility] [address] [id number] [place] [address] 6000 Feb, [facility] [place] [facility] [address] [id number], [place] [address] Feb, [facility] [place] [facility] [address] [id number] [place] [address] 5[address] Feb, [facility] [place] [facility] [address] [id number] [place] [address] Feb, [facility] [place] [facility] [address] [id number] [place] [address] 3145 Jan, [facility] [place] [facility] [address] [id number] [place] [address] 1586 Jan, [facility] [place] [facility] [address] [id number] [place] [address] 0465 Jan, [facility] [place] [facility] [address] [id number] [place] [address] 2370 Jan, [facility] [place] [facility] [address] [id number] [place] [address] 7[address] Jan, [facility] [place] [facility] [address] [id number] [place] [address] 3[address] Jan, [facility] [place] [facility] [address] [id number] [place] [address] 8571 Jan, [facility] [place] [facility] [address] [id number] [place] [address] 6377 Jan, [facility] [place] [facility] [address] [id number], [place] [address] 15 Jan, 2012 [facility] [place] [facility] [address] [id number], [place] [address] Jan, [facility] [place] [facility] [address] [id number] [place] [address] 7024 Jan, [facility] [place] [facility] [address] [facility] [place] [facility] [id number], [place] [address] Jan, [facility] [place] [facility] [address] [id number], [place] [address] Jan, [facility] [place] [facility] [address] [id number] [place] [address] 0476 Dec, [facility] [address] [id number] [place] [address] 4639 Dec, [facility] [place] [facility] [address] [id number] [place] [address] 6193 Dec, [facility] [address] [id number] [place] [address] 4625 Dec, [facility] [place] [facility] [address] [id number] [place] [address] 2430 Dec, [facility] [address] [id number] [place] [address] 5557 Dec, [facility] [place] [facility] [address] [id number] [place] [address] 8777 Dec, [facility] [place] [facility] [address] [id number] [place] [address]- 9488 Nov, [facility] [place] [facility] [address] [id number] [place] [address] 3[address] Nov, [facility] [place] [facility] [address] [id number] [place] [address] 1402 Oct, [facility] [address] [id number] [place] [address]- 5359 Oct, [facility] [place] [facility] [address] [id number] [place] [address] 7915 Sep, [facility] [place] [facility] [address] [id number] [place] [address]- 2549 Sep, [facility] [place] [facility] [address] [id number] [place] [address]- 0990 Sep, [facility] [place] [facility] [address] [id number] [place] [address]- 2546 Sep, [facility] [place] [facility] [address] [id number] [place] [address] 3180 July, [facility] [address] [id number] [place] [address] 4[address] July, [facility] [place] [facility] [address] [id number] [place] [address] 5086 July, [facility] [place] [facility] [address] [id number] [place] [address] 9067 Jun, [facility] [place] [facility] [address] [id number] [place] [address] 5996 Jun, [facility] [address] [id number] [place] [address] 1864 Jun, [facility] [place] [facility] [address] [id number] [place] [address]- 5146 16 Jun, 2011 [facility] [place] [facility] [address] [id number] [place] [address]- 0381 Jun, [facility] [address] [id number] [place] [address]- 0115 Jun, [facility] [place] [facility] [address] [id number] [place] [address]- 1400 Jun, [facility] [place] [facility] [address] [id number] [place] [address] Jun, [facility] [place] [facility] [address] [id number] [place] [address]- 1691 Jun, [facility] [place] [facility] [address] [id number], [place] [address] May, [facility] [place] [facility] [address] [id number] [place] [address]- 3992 May, [facility] [place] [facility] [address] [id number] [place] [address]- 3066 May, [facility] [place] [facility] [address] [id number] [place] [address]- 1336 May, [facility] [place] [facility] [address] [id number], [place] [address] 2546 May, [facility] [address] [id number] [place] [address]- 8428 Apr, [facility] [place] [facility] [address] [id number] [place] [address]- 0216 Mar, [facility] [place] [facility] [address] [facility] [place] [id number] [place] [address]- 5346 Mar, [facility] [place] [facility] [address] [id number] [place] [address]- 4678 Feb, [facility] [place] [facility] [address] [id number] [place] [address]- 5691 Feb, [facility] [place] [facility] [address] [facility] [place] [id number] [place] [address]- 5676 Feb, [facility] [address] [facility] [place] [id number] [place] [address]- 3664 Jan, [facility] [place] [facility] [address] [facility] [place] [id number] [place] [address]- 1075 Dec, [facility] [place] [facility] [address] [facility] [place] [id number] [place] [address]- 5588 Dec, [facility] [place] [facility] [address] [facility] [place] [id number] [place] [address]- 3880 Dec, [facility] [place] [facility] [address] [facility] [place] [id number] [place] [address]- 0308 July, [facility] [place] [facility] [address] [id number] [place] [address] 2546 May, [facility] [place] [facility] [address] [id number] [place] [address]- 4749 Feb, [facility] [place] [facility] [address] [facility] [place] [id number] [place] [address] 2546 Feb, [facility] [place] [facility] [address] [facility] [place] [id number] [place] [address]- 6536 Feb, [facility] [place] [facility] [address] [id number] [place] [address]- 5579 12 Jan, 2010 [facility] [place] [facility] [address] [id number] [place] [address]- 3896 26 Dec, 2009 [facility] [place] [facility] [address] [id number] [place] [address] 2546 13 Dec, 2009 [facility] [place] [facility] [address] [id number] [place] [address]- 8296 Oct, [facility] [place] [facility] [address] [id number] [place] [address]- 1175 July, [facility] [place] [facility] [address] [id number] [place] [address]- 0739 18 Apr, 2009 [facility] [place] [facility] [address] [id number] [place] [address]- 3327 Mar, [facility] [place] [facility] [address] [id number] [place] [address]- 6512 18 Feb, 2009 [facility] [place] [facility] [address] [id number] [place] [address]- 0478 18 Feb, 2009 [facility] [place] [facility] [address] [id number] [place] [address]- 2327 03 Feb, 2009 [facility] [place] [facility] [address] [facility] [place] [id number] [place] [address]- 3423 02 Feb, 2009 [facility] [place] [facility] [address] [id number] [place] [address] 2548 02 Feb, 2009 [facility] [place] [facility] [address] [id number] [place] [address]- 7015 18 Jan, 2009 [facility] [place] [facility] [address] [id number] [place] [address] 2546 18 Jan, 2009 [facility] [place] [facility] [address] [id number] [place] [address] 2549 20 Dec, 2008 [facility] [place] [facility] [address] [id number] [place] [address]- 5677 14 Nov, 2008 IMMUNIZATIONS No Known Immunizations SOCIAL HISTORY Never Assessed REASON FOR VISIT Refill request PLAN OF CARE VITAL SIGNS MEDICATIONS Unknown [...] History left knee replacement 2018 Hospitalization History [facility]- Right knee surgery. discharged 01/27/17 Hospitalization History [facility]- Left knee replacement 06/16/2017
--- OUTSIDE RECORDS SUMMARY | 2018-02-11 11:10 | XMS REPORT ---
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 Name Role Phone TAMMY COPELAND Unavailable PROBLEMS Type Condition ICD9-CM Code CDG97-KZ Code Onset Dates Condition Status SNOMED Code Problem Arthritis M19.90 Active 2161080 Problem Allergic state, subsequent encounter T78.40XD Active 449083161 Problem Hypothyroidism (acquired) E03.9 Active 670086179 Problem Mild intermittent asthma with exacerbation J45.21 Active 281287835 Problem COPD with exacerbation J44.1 Active 660297947 Problem Obstructive sleep apnea (adult) (pediatric) G47.33 Active 14258800 Problem Dependence on other enabling machines and devices Z99.89 Active 772032851 Problem Body mass index (BMI) of 45.0-49.9 in adult Z68.42 Active 579250782 Problem Morbid (severe) obesity due to excess calories E66.01 Active 773871083 ALLERGIES No Information ENCOUNTERS Encounter Location Date Diagnosis [facility] [id number] [address] Oct, [facility] [id number] [place] [address] 80606- 2674 Oct, [facility] [id number] [place] [address] 44280- 2486 Oct, 2018 Essential hypertension I10 ; Hypothyroidism (acquired) E03.9 [...] and Obstructive sleep apnea (adult) (pediatric) G47.33 [facility] [address], [place] [address] Sep, Mild intermittent asthma with exacerbation J45.21 [facility] [id number] [place] [address] 93241- 1683 Sep, [facility] [id number] [place] [address] 43584- 0198 Sep, Long-term use of high-risk medication Z79.899 [facility] [id number] [place] [address] 89883- 9009 Sep, Long-term use of high-risk medication Z79.899 [facility] [id number] [place] [address] 90038- 6350 July, [facility] [id number] [place] [address] 07731- 1492 Jun, [facility] [id number] [place] [address] 62904- 3424 May, Asthma J45.909 [facility] [id number] [place] [address] 35549- 6617 May, [facility] [id number] [place] [address] 84186- 2902 Apr, Pre-op evaluation Z01.818 ; Allergic state, subsequent encounter T78.40XD and BMI 45.0-49.9, adult Z68.42 [facility] [id number] [place] [address] 70589- 1208 Mar, [facility] [id number] [place] [address] 41497- 5695 Mar, [facility] [address], [place] [address] Mar, Cough R05 ; Acute nasopharyngitis J00 and BMI 45.0-49.9, adult Z68.42 [facility] [id number] [place] [address] 68984- 6352 Mar, [facility] [address] 77241- 0162 Jan, Ganglion cyst of finger of right hand M67.441 [facility] [id number] [place] [address] 48358- 0111 Dec, [facility] [address] 24546- 8095 Dec, Change in vision H53.9 ; Arthritis M19.90 ; Essential hypertension I10 ; GERD with esophagitis K21.0 ; Hypothyroidism (acquired) E03.9 and Ganglion cyst of joint of finger of left hand M67.442 [facility] [id number] [place] [address] 90768- 3638 15 Nov, 2016 Encounter for immunization Z23 [facility] [address] 41494- 5957 Nov, [facility] [address] 97969- 0704 Sep, [facility] [id number] [place] [address] 92163- 3276 Aug, [facility] [id number] [place] [address] 91852- 1543 July, Cyst of joint of right hand M25.841 [facility] [id number] [place] [address] 76154- 7747 May, [facility] [address] 56646- 1838 May, Fever, unspecified R50.9 and Influenza A J10.1 [facility] [id number] [place] [address] 14325- 8130 May, Left shoulder pain, unspecified chronicity M25.512 [facility] [id number] [place] [address] 57803- 2172 Apr, [facility] [id number] [place] [address] 12296- 0469 Apr, Infraspinatus tendon tear, left, subsequent encounter S46.812D and Supraspinatus tendon tear, left, subsequent encounter S46.812D [facility] [id number] [place] [address] 01618- 0819 Apr, [facility] [id number] [place] [address] 60652- 0269 Mar, Left shoulder pain, unspecified chronicity M25.512 [facility] [address] 66899- 8512 Mar, [facility] [id number] [place] [address] 56461- 7261 Mar, Left shoulder pain, unspecified chronicity M25.512 [facility] [id number] [place] [address] 50521- 9767 Feb, Chronic superficial gastritis without bleeding K29.30 ; Left upper quadrant pain R10.12 ; Essential hypertension I10 ; Dyspnea on exertion R06.09 and Palpitations R00.2 [facility] [id number] [place] [address] 72504- 5610 Jan, Colon polyps K63.5 [facility] [id number] [place] [address] 96318- 4031 Jan, Colon polyps K63.5 [facility] [id number] [place] [address] 61948- 2434 Dec, [facility] [id number] [place] [address] 08731 -[address] Dec, GERD with esophagitis K21.0 [facility] [id number] [place] [address] 05889- 0509 Nov, Arthritis pain M19.90 ; Colon polyps K63.5 ; Seasonal allergic rhinitis due to pollen J30.1 and Encounter for immunization Z23 [facility] [id number] [place] [address] 37583- 4546 Nov, [facility] [id number] [place] [address] 53169- 7747 Oct, [facility] [address] 47421- 5433 Sep, [facility] [address] 03545- 6108 July, [facility] [address] 08603- 8549 July, [facility] [address] 14155- 4999 July, Asthma with acute exacerbation J45.901 and Bronchitis J40 [facility] [address] 59024- 8669 Jun, [facility] [id number] [place] [address] 63992- 1221 May, Other specified hypothyroidism E03.8 and 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 [facility] [id number] [place] [address] 98613- 0065 Apr, [facility] [id number] [place] [address] 46629- 5992 Apr, Sacroiliac joint pain M53.3 [facility] [id number] [place] [address] 48043- 6775 Mar, Other specified hypothyroidism E03.8 ; Restless legs syndrome G25.81 ; Asthma with acute exacerbation J45.901 and Bronchitis J40 [facility] [id number] [place] [address] 43505 -6559 Feb, Upper respiratory symptom R09.89 [facility] [id number] [place] [address]- 4318 Feb, Restless leg G25.81 and Asthma J45.909 [facility] [address] 29039- 0602 Dec, Rupture of tendon of right shoulder S46.911A [facility] [address] 00631- 4364 Dec, Sacroiliac joint pain M53.3 [facility] [address] 55420- 3341 30 Nov, 2014 [facility] [address] 50818- 3630 28 Nov, 2014 Lumbago of lumbosacaral region with sciatica 724.2 and Sacroiliitis 720.2 [facility] [address] 15116- 5855 Nov, Influenza vaccine administered V04.81 [facility] [address] 26335- 3413 Nov, [facility] [address] 89321- 9545 Nov, [facility] [address] 13513- 7826 Nov, Thyroid function test abnormal 794.5 and Thyroid antibody positive 795.79 [facility] [id number] [place] [address] 07549- 4300 Nov, Hypothyroidism 244.9 ; Thyroid antibody positive 795.79 and Right shoulder pain 719.41 [facility] [address] 73549- 0854 Oct, [facility] [id number] [place] [address] 49659- 3739 Oct, Thyroid function test abnormal 794.5 [facility] [address] 00925- 9107 Oct, Hypertension 401.9 and Bilateral leg pain 729.5 [facility] [id number] [place] [address] 13938- 3312 Oct, [facility] [id number] [place] [address] 09352- 3896 Oct, Bilateral leg pain 729.5 and Hypertension 401.9 [facility] [id number] [place] [address] 38260- 9260 Sep, Bilateral leg pain 729.5 ; Hypertension 401.9 and Edema 782.3 [facility] [id number] [place] [address] 33797- 5597 Aug, Unspecified hereditary and idiopathic peripheral neuropathy 356.9 and Arthritis 716.90 [facility] [id number] [place] [address] 49676- 6753 Aug, [facility] [id number] [place] [address] 70583- 1787 July, [facility] [id number] [place] [address] 35300- 4456 Jun, [facility] [id number] [place] [address] 53247- 5246 Jun, [facility] [address], [place] [address]- 6642 Jun, [facility] [id number] [place] [address] [id number]- 4218 May, [facility] [address], [place] [address]- 7806 May, [facility] [id number] [place] [address] 590740- 2917 May, [facility] [address] [address] 2558 May, [facility] [address] [place] [address]- 6255 16 May, 2014 [facility] [place] [facility] [address] [id number] [place] [address]- 5528 16 May, 2014 [facility] [place] [facility] [address] [id number] [place] [address]- 7885 10 May, 2014 [facility] [place] [facility] [address] [id number] [place] [address]- 3935 10 May, 2014 [facility] [place] [facility] [address] [id number] [place] [address]- 6797 04 May, 2014 [facility] [place] [facility] [address] [id number] [place] [address]- 1417 May, [facility] [place] [facility] [address] [facility] [id number] [place] [address]- 9755 May, [facility] [place] [facility] [address] [facility] [id number] [place] [address]- 8116 19 Apr, 2014 [facility] [place] [facility] [address] [facility] [id number] [place] [address]- 1359 19 Apr, 2014 [facility] [place] [facility] [id number] [place] [address]- 4060 Apr, 2014 [facility] [place] [facility] [address] [facility] [id number] [place] [address]- 2331 19 Apr, 2014 [facility] [place] [facility] [address] [facility] [id number] [place] [address]- 5221 17 Apr, 2014 [facility] [place] [facility] [address] [facility] [id number] [place] [address]- 2542 17 Apr, 2014 [facility] [place] [facility] [address] [facility] [id number] [place] 3642 04 Apr, 2014 [facility] [place] [facility] [address] [facility] [id number]- 8164 04 Apr, 2014 [facility] [place] [facility] [address] [facility] [id number] [place] [address]- 0427 Mar, [facility] [place] [facility] [address] [id number] [place] [address]- 2208 Mar, [facility] [place] [facility] [address] [id number] [place] [address]- 7506 Mar, [facility] [place] [facility] [address] [id number] [place] [address]- 4941 Mar, [facility] [place] [facility] [address] [id number] [place] [address]- 7508 Mar, [facility] [place] [facility] [address] [id number] [place] [address]- 9172 Mar, [facility] [place] [facility] [address] [id number] [place] [address]- 5969 Feb, [facility] [place] [facility] [address] [id number] [place] [address]- 8014 Feb, [facility] [place] [facility] [address] [id number] [place] [address]- 5741 Feb, [facility] [place] [facility] [address] [id number] [place] [address]- 0512 Feb, [facility] [place] [facility] [address] [id number] [place] [address]- 5101 Feb, [facility] [place] [facility] [address] [id number] [place] [address]- 5880 Feb, [facility] [place] [facility] [address] [id number] [place] [address]- 4889 Feb, [facility] [place] [facility] [address] [id number] [place] [address]- 4236 Feb, [facility] [place] [facility] [address] [id number] [place] [address]- 3565 Feb, [facility] [place] [facility] [address] [id number] [place] 8252 Feb, [facility] [place] [facility] [address] [id number] [place] [address]- 2064 18 Feb, 2014 [facility] [place] [facility] [address] [id number] [place] [address]- 8398 18 Feb, 2014 [facility] [place] [facility] [address] [id number] [place] [address]- 0141 18 Feb, 2014 [facility] [place] [facility] [address] [id number] [place] [address]- 1775 15 Feb, 2014 [facility] [place] [facility] [address] [id number] [place] [address]- 0573 15 Feb, 2014 [facility] [place] [facility] [address] [id number] [place] [address]- 8688 Feb, [facility] [place] [facility] [address] [id number] [place] [address]- 7022 Feb, [facility] [place] [facility] [address] [id number] [place] [address]- 9420 Feb, [facility] [place] [facility] [address] [id number] [place] [address]- 0178 Feb, [facility] [place] [facility] [address] [id number] [place] [address]- 9299 Feb, [facility] [place] [facility] [address] [facility] [id number] [place] [address]- 1404 Feb, [facility] [place] [facility] [address] [id number] [place] [address]- 0624 Feb, [facility] [place] [facility] [address] [id number] [place] [address]- 8392 Feb, [facility] [place] [facility] [address] [id number] [place] [address]- 7724 Jan, [facility] [place] [facility] [address] [id number] [place] [address]- 0625 Jan, [facility] [place] [facility] [address] [id number] [place] [address]- 7448 Jan, [facility] [place] [facility] [address] [id number] [place] [address]- 8184 Jan, [facility] [place] [facility] [address] [id number] [place] [address]- 7043 Jan, [facility] [place] [facility] [address] [id number] [place] [address]- 8530 Jan, [facility] [place] [facility] [address] [id number] [place] [address]- 6508 Jan, [facility] [place] [facility] [address] [id number] [place] [address]- 8726 Jan, [facility] [place] [facility] [address] [id number] [place] [address]- 1915 Jan, [facility] [place] [facility] [address] [id number] [place] [address]- 6214 Dec, [facility] [place] [facility] [address] [id number] [place] [address]- 1442 Dec, [facility] [place] [facility] [address] [id number] [place] [address]- 6523 Dec, [facility] [place] [facility] [address] [id number] [place] [address]- 4930 Dec, [facility] [place] [facility] [address] [id number] [place] [address]- 9431 Dec, [facility] [place] [facility] [address] [id number], [place] [address]- 1326 Dec, [facility] [place] [facility] [address] [id number] [place] [address]- 7747 Dec, [facility] [place] [facility] [address] [id number] [place] [address]- 0806 Dec, [facility] [place] [facility] [address] [id number] [place] [address]- 2111 Dec, [facility] [place] [facility] [address] [id number], [place] [address]- 6302 Dec, [facility] [place] [facility] [address] [id number] [place] [address]- 6489 30 Nov, 2013 [facility] [place] [facility] [address] [id number] [place] [address]- 9645 30 Nov, 2013 [facility] [place] [facility] [address] [id number] [place] [address]- 8045 Nov, [facility] [place] [facility] [address] [id number] [place] [address]- 8252 Nov, [facility] [place] [facility] [address] [id number] [place] [address]- 3331 Nov, [facility] [place] [facility] [address] [id number] [place] [address]- 2996 Nov, [facility] [place] [facility] [address] [id number] [place] [address]- 6055 Nov, [facility] [place] [facility] [address] [id number] [place] [address]- 7436 Nov, [facility] [place] [facility] [address] [id number] [place] [address]- 1853 Nov, [facility] [place] [facility] [address] [id number] [place] [address]- 6496 Nov, [facility] [place] [facility] [address] [id number] [place] [address]- 1560 Oct, [facility] [place] [facility] [address] [id number] [place] [address]- 2380 Oct, [facility] [place] [facility] [address] [id number] [place] [address]- 8675 Oct, [facility] [place] [facility] [address] [id number] [place] [address]- 7560 Oct, [facility] [place] [facility] [address] [id number] [place] [address]- 9620 Oct, [facility] [place] [facility] [address] [id number] [place] [address]- 7962 Oct, [facility] [place] [facility] [address] [id number] [place] [address]- 2568 Oct, [facility] [place] [facility] [address] [id number] [place] [address]- 6955 Oct, [facility] [place] [facility] [address] [id number] [place] [address]- 6418 Oct, [facility] [place] [facility] [address] [id number] [place] [address]- 5697 Oct, [facility] [place] [facility] [address] [id number] [place] [address]- 3622 Sep, [facility] [place] [facility] [address] [id number] [place] [address]- 2194 Sep, [facility] [place] [facility] [address] [id number] [place] [address]- 4371 Aug, [facility] [place] [facility] [address] [id number] [place] [address] Aug, [facility] [place] [facility] [address] [id number] [place] [address] Aug, [facility] [place] [facility] [address] [id number] [place] [address] Aug, [facility] [place] [facility] [address] [id number] [place] [address] Aug, [facility] [place] [facility] [address] [id number] [place] [address] Aug, [facility] [place] [facility] [address] [id number] [place] [address] Aug, [facility] [place] [facility] [address] [id number] [place] [address] Aug, [facility] [place] [facility] [address] [id number] [place] [address] Aug, [facility] [place] [facility] [address] [id number] [place] [address] Aug, [facility] [place] [facility] [address] [id number] [place] [address] Aug, [facility] [place] [facility] [address] [id number] [place] [address] Aug, [facility] [place] [facility] [address] [id number] [place] [address] July, [facility] [place] [facility] [address] [id number] [place] [address] July, [facility] [place] [facility] [address] [id number] [place] [address] July, [facility] [place] [facility] [address] [id number] [place] [address] July, [facility] [place] [facility] [address] [id number] [place] [address] July, [facility] [place] [facility] [address] [id number] [place] [address]- [address]684 July, [facility] [place] [facility] [address] [id number] [place] [address] July, [facility] [place] [facility] [address] [id number] [place] [address] July, [facility] [place] [facility] [address] [id number] [place] [address] Jun, [facility] [place] [facility] [address] [id number] [place] [address] Jun, [facility] [place] [facility] [address] [id number] [place] [address] May, [facility] [place] [facility] [address] [id number] [place] [address] May, [facility] [place] [facility] [address] [id number] [place] [address] 27 May, 2013 [facility] [place] [facility] [address] [id number] [place] [address]- [address] 27 May, 2013 [facility] [place] [facility] [address] [id number] [place] [address]- [address] 14 May, 2013 [facility] [place] [facility] [address] [id number] [place] [address]- [address] 14 May, 2013 [facility] [place] [facility] [address] [id number] [place] [address]- [address] 10 May, 2013 [facility] [place] [facility] [address] [id number] [place] [address]- [address] 10 May, 2013 [facility] [place] [facility] [address] [id number] [place] [address] Apr, [facility] [place] [facility] [address] [id number] [place] [address] Apr, [facility] [place] [facility] [address] [id number] [place] [address] Apr, [facility] [place] [facility] [address] [id number] [place] [address]- [address] Apr, [facility] [place] [facility] [address] [id number] [place] [address] Apr, [facility] [place] [facility] [address] [id number] [place] [address] Apr, [facility] [place] [facility] [address] [id number] [place] [address] Apr, [facility] [place] [facility] [address] [id number] [place] [address] Apr, [facility] [place] [facility] [address] [id number] [place] [address] Mar, [facility] [place] [facility] [address] [id number] [place] [address]- [address] Mar, [facility] [place] [facility] [address] [id number] [place] [address] Mar, [facility] [place] [facility] [address] [id number] [place] [address] Mar, [facility] [place] [facility] [address] [id number] [place] [address]- [address] Mar, [facility] [place] [facility] [address] [id number] [place] [address] Mar, [facility] [place] [facility] [address] [id number] [place] [address]- [address] Mar, [facility] [place] [facility] [address] [id number] [place] [address] Mar, [facility] [place] [facility] [address] [id number] [place] [address] Mar, [facility] [place] [facility] [address] [id number] [place] [address]- [address] Mar, [facility] [place] [facility] [address] [id number] [place] [address] Feb, [facility] [place] [facility] [address] [id number] [place] [address] Feb, [facility] [place] [facility] [address] [id number] [place] [address] Feb, [facility] [place] [facility] [address] [id number], [place] [address] Feb, [facility] [place] [facility] [address] [id number] [place] [address] Jan, [facility] [place] [facility] [address] [id number] [place] [address] Jan, [facility] [place] [facility] [address] [id number] [place] [address] Dec, [facility] [place] [facility] [address] [id number] [place] [address] 30 Dec, 2012 [facility] [place] [facility] [address] [id number] [place] [address]- [address] 28 Dec, 2012 [facility] [place] [facility] [address] [id number] [place] [address]- [address] 28 Dec, 2012 [facility] [place] [facility] [address] [id number] [place] [address]- [address] 18 Dec, 2012 [facility] [place] [facility] [address] [id number] [place] [address] 18 Dec, 2012 [facility] [facility] [address] [id number] [place] [address] 14 Dec, 2012 [facility] [place] [facility] [address] [id number] [place] [address] 14 Dec, 2012 [facility] [place] [facility] [address] [id number] [place] [address] Dec, 2012 [facility] [place] [facility] [address] [id number] [place] [address] Dec, [facility] [place] [facility] [address] [id number] [place] [address] 8778 09 Dec, 2012 [facility] [place] [facility] [address] [id number] [place] [address] 9896 09 Dec, 2012 [facility] [place] [facility] [address] [id number] [place] [address] 6105 04 Dec, 2012 [facility] [place] [facility] [address] [id number], [place] [address] 25 Nov, 2012 [facility] [place] [facility] [address] [id number] [place] [address]286 24 Nov, 2012 [facility] [place] [facility] [address] [id number] [place] [address] 5876 23 Nov, 2012 [facility] [place] [facility] [address] [id number], [place] [address] 11 Nov, 2012 [facility] [place] [facility] [address] [id number] [place] [address] 2919 Nov, [facility] [place] [facility] [address] [id number] [place] [address]- 6425 Oct, [facility] [place] [address] [id number] [place] [address] 3300 Oct, [facility] [place] [facility] [address] [id number] [place] [address] 8548 Oct, [facility] [place] [address] [id number] [place] [address] 2384 Oct, [facility] [address] [id number] [place] [address]- 9025 Oct, [facility] [place] [facility] [address] [id number] [place] [address] 6509 Oct, [facility] [place] [facility] [address] [id number] [place] [address] 9534 Oct, [facility] [address] [id number] [place] [address] 8511 Sep, [facility] [address] [id number] [place] [address]- 7[address] Sep, [facility] [address] [id number] [place] [address] 6021 Sep, [facility] [address] [id number] [place] [address] 7126 Aug, [facility] [address] [id number] [place] [address] 7175 Aug, [facility] [address] [id number] [place] [address] 0304 Aug, [facility] [address] [id number] [place] [address] 2541 Aug, [facility] [address] [id number] [place] [address] 3191 July, [facility] [address] [id number] [place] [address] 7475 July, [facility] [address] [id number] [place] [address] 7406 July, [facility] [address] [id number] [place] [address]- 6977 July, [facility] [address] [id number] [place] [address] 5356 Jun, [facility] [address] [id number] [place] [address]- 7475 Jun, [facility] [address] [id number] [place] [address] 9523 May, [facility] [address] [id number] [place] [address]- 0966 May, [facility] [address] [id number] [place] [address] 1566 Apr, [facility] [address] [id number] [place] [address] 1606 Apr, [facility] [address] [id number] [place] [address]- 7840 Feb, [facility] [address] [id number] [place] [address] 5528 Feb, [facility] [address] [id number] [place] [address] 6951 Feb, [facility] [address] [id number] [place] [address] 3873 Feb, [facility] [address] [id number] [place] [address]- 0800 Feb, [facility] [address] [facility] [id number] [place] [address] 7686 Feb, [facility] [address] [id number] [place] [address] 9209 Jan, [facility] [address] [id number] [place] [address]- 6983 Jan, [facility] [address] [id number] [place] [address]- 7438 Jan, [facility] [address] [id number] [place] [address]- 7241 Jan, [facility] [address] [id number] [place] [address] 9698 Jan, [facility] [address] [id number] [place] [address], [place] [address]- 7053 Jan, [facility] [address] [id number] [place] [address]- 5039 Jan, [facility] [address] [facility] [id number] [place] [address] 4013 Jan, [facility] [address] [id number] [place] [address] 8144 Jan, [facility] [address] [facility] [id number] [place] [address]- 2526 Jan, [facility] [address] [facility] [id number] [place] [address]- 2187 Jan, [facility] [address] [facility] [id number] [place] [address]- 9360 Jan, [facility] [address] [id number] [place] [address]- 9459 Jan, [facility] [address] [id number] [place] [address] 3210 Dec, [facility] [address] [facility] [id number] [place] [address] 6346 Dec, [facility] [address] [facility] [id number] [place] [address]- 0567 Dec, [facility] [address] [id number] [place] [address]- 5160 Dec, [facility] [address] [id number] [place] [address]- 3046 Dec, [facility] [address] [id number] [place] [address]- 7544 Dec, [facility] [address] [id number] [place] [address]- 1218 Dec, [facility] [address] [id number] [place] [address]- 6766 Nov, [facility] [address] [id number] [place] [address]- 0550 Nov, [facility] [address] [id number] [place] [address]- 7279 Oct, [facility] [address] [id number] [place] [address]- 4684 Oct, [facility] [address] [id number] [place] [address]- 3922 Sep, [facility] [address] [id number], [place] [address]- 5926 Sep, [facility] [address] [id number], [place] [address]- 5015 Sep, [facility] [address] [id number], [place] [address]- 8745 Sep, [facility] [address] [id number] [place] [address]- 2245 July, [facility] [address] [id number] [place] [address]- 8876 July, [facility] [address] [id number], [place] [address]- 8097 July, [facility] [address] [id number], [place] [address]- 0382 30 Jun, 2011 [facility] [address] [id number] [place] [address]- 5782 2011 [facility] [address] [id number] [place] [address]- 5732 23 Jun, 2011 [facility] [address] [id number] [place] [address]- 1476 16 Jun, 2011 [facility] [address] [id number] [place] [address]- 8364 13 Jun, 2011 [facility] [address] [id number] [place] [address]- 4102 10 Jun, 2011 [facility] [address] [id number] [place] [address]- 6456 06 Jun, 2011 [facility] [address] [id number] [place] [address]- 7912 05 Jun, 2011 [facility] [address] [id number] [place] [address]- 9426 04 Jun, 2011 [facility] [address] [id number] [place] [address]- 2865 May, [facility] [address] [id number] [place] [address]- 1750 23 May, 2011 [facility] [address] [id number] [place] [address]- 8913 May, [facility] [address] [id number] [place] [address]- 2603 May, [facility] [address] [id number] [place] [address]- 8669 02 May, 2011 [facility] [address] [id number] [place] [address]- 7053 28 Apr, 2011 [facility] [address] [id number] [place] [address]- 6405 10 Mar, 2011 [facility] [address] [id number] [place] [address]- 8598 Mar, [facility] [address] [id number] [place] [address]- 7576 Feb, [facility] [address] [id number] [place] [address] 2546 Feb, [facility] [address] [id number] [place] [address]- 7587 Feb, [facility] [address] [id number] [place] [address]- 4224 Jan, [facility] [address] [id number] [place] [address]- 7419 Dec, [facility] [address] [id number] [place] [address]- 4666 Dec, [facility] [address] [id number] [place] [address]- 2971 Dec, [facility] [address] [id number] [place] [address]- 1183 July, [facility] [address] [id number] [place] [address]- 2292 May, [facility] [address] [id number] [place] [address]- 5268 Feb, [facility] [address] [id number] [place] [address]- 7551 15 Feb, 2010 [facility] [address] [id number] [place] [address]- 3494 Feb, [facility] [address] [id number] [place] [address]- 5948 Jan, [facility] [address] [id number] [place] [address]- 4814 26 Dec, 2009 [facility] [address] [id number] [place] [address]- 2064 Dec, [facility] [address] [id number], [place] [address] Oct, [facility] [id number], [place] [address] 3416 July, [facility] [id number], [place] [address]- 2366 Apr, [facility] [id number], [place] [address]- 7234 Mar, [facility] [id number], [place] [address]- 0348 Feb, [facility] [id number], [place] [address]- 0306 Feb, [facility] [id number], [place] [address]- 9316 Feb, [facility] [id number], [place] [address]- 3530 Feb, [facility] [id number], [place] [address]- 3202 Feb, [facility] [id number], [place] [address]- 5723 Jan, [facility] [id number], [place] [address]- 3156 Jan, [facility] [id number], [place] [address]- 6146 Dec, [facility] [address] [id number], [place] [address]- 1084 Nov, IMMUNIZATIONS No Known Immunizations SOCIAL HISTORY Never Assessed REASON FOR VISIT Referral Request PLAN OF CARE VITAL SIGNS MEDICATIONS Unknown [...] History left knee replacement 2017 Hospitalization History [facility]- Right knee surgery. discharged 01/27/17 Hospitalization History [facility]- Left knee replacement 06/16/2017
--- OUTSIDE RECORDS SUMMARY | 2018-02-11 11:10 | XMS REPORT ---
Author Author TAMMY COPELAND Organization [facility] Address [address] [place] [address] Care Team Providers Care Conductor Sleeping Car Name Role Phone TAMMY COPELAND Unavailable PROBLEMS Type Condition ICD9-CM Code DKA28-GR Code Onset Dates Condition Status SNOMED Code Problem Arthritis M19.90 Active 5189221 Problem Allergic state, subsequent encounter T78.40XD Active 937233736 Problem Hypothyroidism (acquired) E03.9 Active 913232698 Problem Mild intermittent asthma with exacerbation J45.21 Active 778010557 Problem COPD with exacerbation J44.1 Active 663122627 Problem Obstructive sleep apnea (adult) (pediatric) G47.33 Active 48836592 Problem Dependence on other enabling machines and devices Z99.89 Active 621757700 Problem Body mass index (BMI) of 45.0-49.9 in adult Z68.42 Active 509973478 Problem Morbid (severe) obesity due to excess calories E66.01 Active 347850334 ALLERGIES No Information ENCOUNTERS Encounter Location Date Diagnosis [facility] [id number] [address] Oct, Essential hypertension I10 ; Hypothyroidism (acquired) [...] apnea (adult) (pediatric) G47.33 [facility] [id number] [address] Sep, Mild intermittent asthma with exacerbation J45.21 [facility] [id number] [place] [address] 85030- 0880 Sep, [facility] [id number] [place] [address] 27520- 1596 Sep, Long-term use of high-risk medication Z79.899 [facility] [id number] [place] [address] 97414- 7752 Sep, Long-term use of high-risk medication Z79.899 [facility] [id number] [place] [address] 91271- 7801 July, [facility] [address] 48617- 5245 Jun, [facility] [address] 05346- 8921 May, Asthma J45.909 [place] [address] 85446- 2148 May, [facility] [id number] [place] [address] 92254- 1722 Apr, Pre-op evaluation Z01.818 ; Allergic state, subsequent encounter T78.40XD and BMI 45.0-49.9, adult Z68.42 [facility] [id number] [place] [address] 73217- 8000 Mar, [facility] [id number] [place] [address] 26748- 8049 Mar, [facility] [id number] [place] [address] 48532 -7992 Mar, Cough R05 ; Acute nasopharyngitis J00 and BMI 45.0-49.9, adult Z68.42 [facility] [id number] [place] [address] 44922- 2774 Mar, [facility] [address] 32284- 4521 Jan, Ganglion cyst of finger of right hand M67.441 [place] [id number] [place] [address] 81726- 9728 Dec, [place] [address] 94228- 3161 Dec, Change in vision H53.9 ; Arthritis M19.90 ; Essential hypertension I10 ; GERD with esophagitis K21.0 ; Hypothyroidism (acquired) E03.9 and Ganglion cyst of joint of finger of left hand M67.442 [place] [address] 30236- 4895 15 Nov, 2016 Encounter for immunization Z23 [place] [address] 39123- 5897 Nov, [place] [address] 95406- 5780 Sep, [place] [address] 02335- 1540 Aug, [place] [address] 39811- 5910 July, Cyst of joint of right hand M25.841 [place] [id number] [place] [address] 06534- 8636 May, [place] [address] 10391- 3086 May, Fever, unspecified R50.9 and Influenza A J10.1 [place] [id number] [place] [address] 18671- 3253 May, Left shoulder pain, unspecified chronicity M25.512 [place] [id number] [place] [address] 38469- 5726 Apr, [place] [id number] [place] [address] 78546- 4748 14 Apr, 2016 Infraspinatus tendon tear, left, subsequent encounter S46.812D and Supraspinatus tendon tear, left, subsequent encounter S46.812D [facility] [id number] [place] [address] 85002- 5977 09 Apr, 2016 [facility] [id number] [place] [address] 89450- 8317 Mar, Left shoulder pain, unspecified chronicity M25.512 [place] [id number] [place] [address] 31747- 0480 Mar, [place] [id number] [place] [address] 90465- 2678 Mar, Left shoulder pain, unspecified chronicity M25.512 [place] [id number] [place] [address] 29684- 3276 Feb, Chronic superficial gastritis without bleeding K29.30 ; Left upper quadrant pain R10.12 ; Essential hypertension I10 ; Dyspnea on exertion R06.09 and Palpitations R00.2 [place] [id number] [place] [address] 61433- 3158 Jan, Colon polyps K63.5 [place] [id number] [place] [address] 20438- 8071 Jan, Colon polyps K63.5 [place] [id number] [place] [address] 00283- 9152 Dec, [facility] [id number] [place] [address] 01467 -5807 Dec, GERD with esophagitis K21.0 [place] [id number] [place] [address] 13018- 4566 22 Nov, 2015 Arthritis pain M19.90 ; Colon polyps K63.5 ; Seasonal allergic rhinitis due to pollen J30.1 and Encounter for immunization Z23 [facility] [address] [place] [address] 97019- 7114 15 Nov, 2015 [place] [id number] [place] [address] 66039- 4433 Oct, [facility] [id number] [place] [address] 94601- 7484 Sep, [facility] [id number] [place] [address] 10787- 2226 July, [facility] [address] 40811- 1264 July, [facility] [id number] [place] [address] 69770- 2638 July, Asthma with acute exacerbation J45.901 and Bronchitis J40 [place] [address] 33842- 6323 Jun, [facility] [id number] [place] [address] 44850- 0928 May, Other specified hypothyroidism E03.8 and 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 [place] [id number] [place] [address] 89049- 7723 Apr, [facility] [id number] [place] [address] 56992- 8988 Apr, Sacroiliac joint pain M53.3 [place] [id number] [place] [address] 26724- 1328 Mar, Other specified hypothyroidism E03.8 ; Restless legs syndrome G25.81 ; Asthma with acute exacerbation J45.901 and Bronchitis J40 [facility] [address] [place] [address] 75498 -0135 Feb, Upper respiratory symptom R09.89 [facility] [id number] [place] [address] 47419- 9329 Feb, Restless leg G25.81 and Asthma J45.909 [facility] [id number] [place] [address] 12678- 4949 Dec, Rupture of tendon of right shoulder S46.911A [facility] [id number] [place] [address] 51803- 3580 05 Dec, 2014 Sacroiliac joint pain M53.3 [facility] [id number] [place] [address] 62417- 8633 30 Nov, 2014 [place] [address] 42339- 3791 28 Nov, 2014 Lumbago of lumbosacaral region with sciatica 724.2 and Sacroiliitis 720.2 [place] [address] 74982- 3529 22 Nov, 2014 Influenza vaccine administered V04.81 [place] [address] 49632- 9416 Nov, [place] [address] 70922- 6656 Nov, [place] [id number] [place] [address] 62999- 9019 18 Nov, 2014 Thyroid function test abnormal 794.5 and Thyroid antibody positive 795.79 [place] [id number] [place] [address] 43698- 4106 16 Nov, 2014 Hypothyroidism 244.9 ; Thyroid antibody positive 795.79 and Right shoulder pain 719.41 [place] [id number] [place] [address] 73191- 0325 Oct, [place] [id number] [place] [address] 04256- 4751 Oct, Thyroid function test abnormal 794.5 [place] [id number] [place] [address] 24187- 7948 14 Oct, 2014 Hypertension 401.9 and Bilateral leg pain 729.5 [place] [id number] [place] [address] 39435- 3510 13 Oct, 2014 [place] [facility] [id number] [address] 8477 Oct, Bilateral leg pain 729.5 and Hypertension 401.9 [facility] [address] [facility] [id number] [place] [address] 59671- 7159 Sep, Bilateral leg pain 729.5 ; Hypertension 401.9 and Edema 782.3 [facility] [id number] [place] [address] 07961- 4516 Aug, Unspecified hereditary and idiopathic peripheral neuropathy 356.9 and Arthritis 716.90 [facility] [address] [address]- 5035 Aug, [facility] [id number] [place] [address] 11522- 8612 July, [facility] [id number] [address]- 7385 Jun, [facility] [address] [place] [address] 81119- 5346 Jun, [facility] [address] [address]- 9142 Jun, [facility] [address] [address]- 7953 May, [facility] [address] [address]- 3420 May, [facility] [address] [address]- 8623 May, [facility] [address] [address]- 4466 May, [facility] [address] 8278 May, [facility] [address] 1073 May, [facility] [address] [id number] [place] [address]- 1325 10 May, 2014 [facility] [place] [facility] [address] [id number] [place] [address]- 8881 10 May, 2014 [facility] [place] [facility] [address] [id number] [place] 8811 May, 2014 [facility] [place] [facility] [address] [id number] [place] [address]- 3051 May, 2014 [facility] [place] [facility] [address] [id number] [place] [address]- 0422 May, [facility] [place] [facility] [address] [id number] [place] [address]- 6995 Apr, 2014 [facility] [place] [facility] [address] [id number] [place] [address]- 2682 Apr, 2014 [facility] [place] [facility] [address] [facility] [id number] [place] [address]- 9133 Apr, 2014 [facility] [place] [facility] [address] [id number] [place] [address]- 7640 Apr, 2014 [facility] [place] [facility] [address] [facility] [id number] [place] [address]- 6144 Apr, [facility] [place] [facility] [address] [facility] [id number] [place] [address]- 6635 Apr, [facility] [place] [facility] [address] [facility] [id number] [place] [address]- 7433 Apr, [facility] [place] [facility] [address] [id number] [place] [address]- 6248 Apr, [facility] [place] [facility] [address] [id number] [place] [address]- 6915 Mar, [facility] [place] [facility] [address] [facility] [id number] [place] [address]- 8905 Mar, [facility] [place] [facility] [address] [facility] [id number] [place] [address]- 5669 Mar, [facility] [place] [facility] [address] [id number] [place] [address]- 5257 Mar, [facility] [place] [facility] [address] [id number] [place] [address]- 4902 Mar, [facility] [place] [facility] [address] [id number] [place] [address]- 8108 Mar, [facility] [place] [facility] [address] [id number] [place] [address]- 1333 Feb, [facility] [place] [facility] [address] [id number] [place] [address]- 8990 Feb, [facility] [place] [facility] [address] [id number] [place] [address]- 3363 Feb, [facility] [place] [facility] [address] [id number] [place] [address]- 9340 Feb, [facility] [place] [facility] [address] [id number] [place] [address]- 4283 Feb, [facility] [place] [facility] [address] [id number] [place] [address]- 6688 Feb, [facility] [place] [facility] [address] [id number] [place] [address]- 6882 Feb, [facility] [place] [facility] [address] [id number] [place] [address]- 7325 Feb, [facility] [place] [facility] [address] [id number] [place] [address]- 1176 Feb, [facility] [place] [facility] [address] [id number] [place] [address]- 5966 Feb, [facility] [place] [facility] [address] [id number] [place] [address]- 6548 Feb, [facility] [place] [facility] [address] [id number] [place] 0797 Feb, [facility] [place] [facility] [address] [id number] [place] [address]- 8972 18 Feb, 2014 [facility] [place] [facility] [address] [id number] [place] [address]- 4896 Feb, [facility] [place] [facility] [address] [id number] [place] [address]- 8986 Feb, [facility] [place] [facility] [address] [id number] [place] [address]- 5981 Feb, [facility] [place] [facility] [address] [id number] [place] [address]- 0410 Feb, [facility] [place] [facility] [address] [id number] [place] [address]- 7842 Feb, [facility] [place] [facility] [address] [id number] [place] [address]- 9073 Feb, [facility] [place] [facility] [address] [id number] [place] [address]- 4809 Feb, [facility] [place] [facility] [address] [id number] [place] [address]- 7363 Feb, [facility] [place] [facility] [address] [id number] [place] [address]- 8276 Feb, [facility] [place] [facility] [address] [facility] [id number] [place] [address]- 0252 Feb, [facility] [place] [facility] [address] [id number] [place] [address]- 2121 Jan, [facility] [place] [facility] [address] [id number] [place] [address]- 2686 Jan, [facility] [place] [facility] [address] [id number] [place] [address]- 4001 Jan, [facility] [place] [facility] [address] [id number] [place] [address]- 0838 Jan, [facility] [place] [facility] [address] [id number] [place] [address]- 7921 Jan, [facility] [place] [facility] [address] [id number] [place] [address]- 6725 Jan, [facility] [place] [facility] [address] [id number] [place] [address]- 3306 Jan, [facility] [place] [facility] [address] [id number] [place] [address]- 7713 Jan, [facility] [place] [facility] [address] [id number] [place] [address]- 9591 Jan, [facility] [place] [facility] [address] [id number] [place] [address]- 4085 Dec, [facility] [place] [facility] [address] [id number] [place] [address]- 4615 Dec, [facility] [place] [facility] [address] [id number] [place] [address]- 5876 Dec, [facility] [place] [facility] [address] [id number] [place] [address]- 8440 Dec, [facility] [place] [facility] [address] [id number] [place] [address]- 2740 Dec, [facility] [place] [facility] [address] [id number] [place] [address]- 6408 Dec, [facility] [place] [facility] [address] [id number] [place] [address]- 0576 Dec, [facility] [place] [facility] [address] [id number] [address]- 9373 Dec, [facility] [place] [facility] [address] [id number] [place] [address]- 5363 Dec, [facility] [place] [facility] [address] [id number] [place] [address]- 0136 Dec, [facility] [place] [facility] [address] [id number] [place] [address]- 7141 Nov, [facility] [place] [facility] [address] [id number] [place] [address]- 7927 30 Nov, 2013 [facility] [place] [facility] [address] [id number] [place] [address]- 2795 Nov, [facility] [place] [facility] [address] [id number] [place] [address]- 9853 Nov, [facility] [place] [facility] [address] [id number] [place] [address]- 2505 Nov, [facility] [place] [facility] [address] [id number] [place] [address]- 7023 Nov, [facility] [place] [facility] [address] [id number] [place] [address]- 9394 Nov, [facility] [place] [facility] [address] [id number] [place] [address]- 3676 Nov, [facility] [place] [facility] [address] [id number] [place] [address]- 3752 Nov, [facility] [place] [facility] [address] [id number] [place] [address]- 2889 Nov, [facility] [place] [facility] [address] [id number] [place] [address]- 4754 Oct, [facility] [place] [facility] [address] [id number] [place] [address]- 0817 Oct, [facility] [place] [facility] [address] [id number] [place] [address]- 8908 Oct, [facility] [place] [facility] [address] [id number] [place] [address]- 0444 Oct, [facility] [place] [facility] [address] [id number] [place] [address]- 0554 Oct, [facility] [place] [facility] [address] [id number] [place] [address]- 2195 Oct, [facility] [place] [facility] [address] [id number] [place] [address]- 9540 Oct, [facility] [place] [facility] [address] [id number] [place] [address]- 6826 Oct, [facility] [place] [facility] [address] [id number] [place] [address]- 5597 Oct, [facility] [place] [facility] [address] [id number] [place] [address]- 8054 Oct, [facility] [place] [facility] [address] [id number] [place] [address]- 0130 Sep, [facility] [place] [facility] [address] [id number] [place] [address]- 8176 Sep, [facility] [place] [facility] [address] [id number] [place] [address]- 5790 Aug, [facility] [place] [facility] [address] [id number] [place] [address]- 5261 Aug, [facility] [place] [facility] [address] [id number] [place] [address]- 3326 Aug, [facility] [place] [facility] [address] [id number] [place] [address]- 2758 Aug, [facility] [place] [facility] [address] [id number] [place] [address]- 8490 Aug, [facility] [place] [facility] [address] [id number] [place] [address]- 7159 Aug, [facility] [place] [facility] [address] [id number] [place] [address]- 3746 Aug, [facility] [place] [facility] [address] [id number] [place] [address]- 7359 Aug, [facility] [place] [facility] [address] [id number] [place] [address]- 4796 Aug, [facility] [place] [facility] [address] [id number] [place] [address]- 9719 Aug, [facility] [place] [facility] [address] [id number] [place] [address]- 9089 Aug, [facility] [place] [facility] [address] [id number] [place] [address]- 9192 Aug, [facility] [place] [facility] [address] [id number] [place] [address]- 2335 July, [facility] [place] [facility] [address] [id number] [place] [address]- 5058 July, [facility] [place] [facility] [address] [id number] [place] [address]- 7320 July, [facility] [place] [facility] [address] [id number] [place] [address]- 7600 July, [facility] [place] [facility] [address] [id number] [place] [address]- 4374 July, [facility] [place] [facility] [address] [id number] [place] [address]- 5709 July, [facility] [place] [facility] [address] [id number] [place] [address]- 2250 July, [facility] [place] [facility] [address] [id number] [place] [address]- 2481 July, [facility] [place] [facility] [address] [id number] [place] [address]- 8841 Jun, [facility] [place] [facility] [address] [id number] [place] [address]- 0233 Jun, [facility] [place] [facility] [address] [id number] [place] [address] May, [facility] [place] [facility] [address] [id number] [place] [address] May, [facility] [place] [facility] [address] [id number] [place] [address] May, [facility] [place] [facility] [address] [id number] [place] [address] May, [facility] [place] [facility] [address] [id number] [place] [address] 14 May, 2013 [facility] [place] [facility] [address] [id number] [place] [address] 14 May, 2013 [facility] [place] [facility] [address] [id number] [place] [address] 10 May, 2013 [facility] [place] [facility] [address] [id number] [place] [address] May, [facility] [place] [facility] [address] [id number] [place] [address] Apr, [facility] [place] [facility] [address] [id number] [place] [address] Apr, [facility] [place] [facility] [address] [id number] [place] [address] Apr, [facility] [place] [facility] [address] [id number] [place] [address] Apr, [facility] [place] [facility] [address] [id number] [place] [address] Apr, [facility] [place] [facility] [address] [id number] [place] [address] Apr, [facility] [place] [facility] [address] [id number] [place] [address] Apr, [facility] [place] [facility] [address] [id number] [place] [address] Apr, [facility] [place] [facility] [address] [id number] [place] [address] Mar, [facility] [place] [facility] [address] [id number] [place] [address] Mar, [facility] [place] [facility] [address] [id number] [place] [address] Mar, [facility] [place] [facility] [address] [id number] [place] [address] Mar, [facility] [place] [facility] [address] [id number] [place] [address] Mar, [facility] [place] [facility] [address] [id number] [place] [address] Mar, [facility] [place] [facility] [address] [id number] [place] [address] Mar, [facility] [place] [facility] [address] [id number] [place] [address] Mar, [facility] [place] [facility] [address] [id number] [place] [address] Mar, [facility] [place] [facility] [address] [id number] [place] [address] Mar, [facility] [place] [facility] [address] [id number] [place] [address] Feb, [facility] [place] [facility] [address] [id number] [place] [address] Feb, [facility] [place] [facility] [address] [id number] [place] [address] Feb, [facility] [place] [facility] [address] [id number] [place] [address] Feb, [facility] [place] [facility] [address] [id number] [place] [address] Jan, [facility] [place] [facility] [address] [id number] [place] [address] Jan, [facility] [place] [facility] [address] [id number] [place] [address] Dec, [facility] [place] [facility] [address] [id number] [place] [address] Dec, [facility] [place] [facility] [address] [id number] [place] [address] Dec, [facility] [place] [facility] [address] [id number] [place] [address] 28 Dec, 2012 [facility] [place] [facility] [address] [id number] [place] [address] 18 Dec, 2012 [facility] [place] [facility] [address] [id number] [place] [address] 18 Dec, 2012 [facility] [place] [facility] [address] [id number] [place] [address] 14 Dec, 2012 [facility] [place] [facility] [address] [id number] [place] [address]- [address] 14 Dec, 2012 [facility] [place] [facility] [address] [id number] [place] [address] Dec, [facility] [place] [facility] [address] [id number] [place] [address] Dec, [facility] [place] [facility] [address] [id number] [place] [address] 09 Dec, 2012 [facility] [place] [facility] [address] [id number] [place] [address] 09 Dec, 2012 [facility] [place] [facility] [address] [id number] [place] [address]- [address] 04 Dec, 2012 [facility] [place] [facility] [address] [id number] [place] [address]- [address] 25 Nov, 2012 [facility] [place] [facility] [address] [id number] [place] [address]- [address] 24 Nov, 2012 [facility] [place] [facility] [address] [id number] [place] [address]- [address] 23 Nov, 2012 [facility] [place] [facility] [address] [id number] [place] [address]- [address] 11 Nov, 2012 [facility] [place] [facility] [address] [id number] [place] [address]- [address] 03 Nov, 2012 [facility] [place] [facility] [address] [id number] [place] [address] Oct, [facility] [place] [facility] [address] [id number] [place] [address] Oct, [facility] [place] [facility] [address] [id number] [place] [address] Oct, [facility] [place] [facility] [address] [id number] [place] [address] Oct, [facility] [place] [facility] [address] [id number] [place] [address] Oct, [facility] [place] [facility] [address] [id number] [place] [address] Oct, [facility] [place] [facility] [address] [id number] [place] [address] Oct, [facility] [place] [facility] [address] [id number] [place] [address] Sep, [facility] [place] [facility] [address] [id number] [place] [address] Sep, [facility] [place] [facility] [address] [id number] [place] [address] Sep, [facility] [place] [facility] [address] [id number] [place] [address] Aug, [facility] [place] [facility] [address] [id number] [place] [address] Aug, [facility] [place] [facility] [address] [id number] [place] [address] Aug, [facility] [place] [facility] [address] [id number] [place] [address] Aug, [facility] [place] [facility] [address] [id number] [place] [address] July, [facility] [place] [facility] [address] [id number] [place] [address] July, [facility] [place] [facility] [address] [id number] [place] [address]25 July, [facility] [address] [id number] [place] [address]76 July, [facility] [place] [facility] [address] [id number] [place] [address] Jun, [facility] [place] [facility] [address] [id number] [place] [address] 2546 Jun, [facility] [place] [facility] [address] [id number] [place] [address] May, [facility] [place] [facility] [address] [id number] [place] [address] 8687 May, [facility] [place] [facility] [address] [id number] [place] [address] Apr, [facility] [place] [facility] [address] [id number] [place] [address] Apr, [facility] [place] [facility] [address] [id number] [place] [address] 7426 Feb, [facility] [place] [facility] [address] [id number] [place] [address] Feb, [facility] [place] [facility] [address] [id number] [place] [address] Feb, [facility] [place] [facility] [address] [id number] [place] [address] 8572 Feb, [facility] [place] [facility] [address] [id number] [place] [address] 8426 Feb, [facility] [place] [facility] [address] [id number] [place] [address] Feb, [facility] [place] [facility] [address] [id number] [place] [address] 68[address] Jan, [facility] [place] [facility] [address] [id number] [place] [address] 48[address] Jan, [facility] [place] [facility] [address] [id number] [place] [address]140 Jan, [facility] [place] [facility] [address] [id number] [place] [address] Jan, [facility] [place] [facility] [address] [id number] [place] [address] Jan, [facility] [place] [facility] [address] [id number] [place] [address] 9691 Jan, [facility] [place] [facility] [address] [id number] [place] [address] 7861 Jan, [facility] [place] [facility] [address] [id number] [place] [address], [place] [address] Jan, [facility] [place] [facility] [address] [id number] [place] [address] 1370 Jan, [facility] [place] [facility] [address] [facility] [id number] [place] [address] 7682 Jan, [facility] [place] [facility] [address] [id number] [place] [address]- 4[address] Jan, [facility] [place] [facility] [address] [facility] [id number] [place] [address]- 7637 Jan, [facility] [place] [facility] [address] [facility] [id number] [place] [address] 2688 Jan, [facility] [place] [facility] [address] [facility] [id number] [place] [address] 14[address] Dec, [facility] [place] [facility] [address] [id number] [place] [address] 7525 Dec, [facility] [place] [facility] [address] [id number] [place] [address] 3748 Dec, [facility] [place] [facility] [address] [facility] [id number] [place] [address]- 7979 Dec, [facility] [place] [facility] [address] [facility] [id number] [place] [address]- 9993 Dec, [facility] [place] [facility] [address] [id number] [place] [address]- [address] Dec, [facility] [place] [facility] [address] [id number] [place] [address]- 2466 Dec, [facility] [place] [facility] [address] [id number] [place] [address] 6676 Nov, [facility] [place] [facility] [address] [id number] [place] [address] Nov, [facility] [place] [facility] [address] [id number] [place] [address] 1534 Oct, [facility] [place] [facility] [address] [id number] [place] [address]- 2246 Oct, [facility] [place] [facility] [address] [id number] [place] [address]- 7176 Sep, [facility] [place] [facility] [address] [id number] [place] [address]- 7310 Sep, [facility] [place] [facility] [address] [id number] [place] [address]- 0833 Sep, [facility] [place] [facility] [address] [id number] [place] [address] Sep, [facility] [place] [facility] [address] [id number] [place] [address]- 1276 July, [facility] [place] [facility] [address] [id number] [place] [address]- [address] July, [facility] [place] [facility] [address] [id number] [place] [address] 5[address] July, [facility] [place] [facility] [address] [id number] [place] [address]- 6656 Jun, [facility] [place] [facility] [address] [id number] [place] [address]- [address] Jun, [facility] [place] [facility] [address] [id number] [place] [address]- [address] 23 Jun, 2011 [facility] [address] [id number] [place] [address]- 6317 16 Jun, 2011 [facility] [place] [facility] [address] [id number] [place] [address]- 3057 13 Jun, 2011 [facility] [address] [id number] [place] [address]- 6743 10 Jun, 2011 [facility] [place] [facility] [address] [id number] [place] [address]- 4433 06 Jun, 2011 [facility] [address] [id number] [place] [address]- 5027 Jun, [facility] [place] [facility] [address] [id number] [place] [address]- 8194 Jun, [facility] [address] [id number] [place] [address]- 3003 May, [facility] [place] [facility] [address] [id number] [place] [address]- 8031 May, [facility] [address] [id number] [place] [address]- 3689 May, [facility] [place] [facility] [address] [id number] [place] [address]- 9999 May, [facility] [place] [facility] [address] [id number] [place] [address]- 7892 May, [facility] [place] [facility] [address] [id number] [place] [address]- 1072 Apr, [facility] [place] [facility] [address] [id number] [place] [address]- 1891 Mar, [facility] [place] [facility] [address] [id number] [place] [address]- 5335 Mar, [facility] [place] [facility] [address] [id number] [place] [address]- 0221 Feb, [facility] [place] [facility] [address] [id number] [place] [address]- [address] 06 Feb, 2011 [facility] [place] [facility] [address] [id number] [place] [address]- 6954 Feb, [facility] [place] [facility] [address] [id number] [place] [address]- 5626 Jan, [facility] [place] [facility] [address] [id number] [place] [address]- 6831 Dec, [facility] [place] [facility] [address] [id number] [place] [address]- 6400 Dec, [facility] [place] [facility] [address] [id number] [place] [address]- 3656 Dec, [facility] [place] [facility] [address] [id number] [place] [address]- 8573 July, [facility] [place] [facility] [address] [id number] [place] [address]- 8677 May, [facility] [place] [facility] [address] [id number] [place] [address]- 7931 Feb, [facility] [place] [facility] [address] [id number] [place] [address]- 4136 Feb, [facility] [place] [facility] [address] [id number] [place] [address]- 6180 Feb, [facility] [place] [facility] [address] [id number] [place] [address]- 4594 Jan, [facility] [place] [facility] [address] [id number] [place] [address]- 8338 Dec, [facility] [place] [facility] [address] [id number] [place] [address]- 7066 Dec, [facility] [place] [facility] [address] [id number] [place] [address]- 9267 Oct, [facility] [place] [facility] [address] [id number] [place] [address]- 29[address] July, [facility] [address] [id number] [address] Apr, [facility] [id number] [place] [address]- [address]16 Mar, [facility] [id number] [place] Feb, [facility] [id number] [place] [address]- 7110 Feb, [facility] [id number] [place] [address] Feb, [facility] [id number] [place] [address]- 6912 Feb, [facility] [id number] [place] [address]- 2869 Feb, [facility] [id number] [place] [address]- 7876 Jan, [facility] [id number] [place] [address]- 4000 Jan, [facility] [id number] [place] [address]- 29[address] Dec, [facility] [id number] [place] [address]- 8060 Nov, IMMUNIZATIONS No Known Immunizations SOCIAL HISTORY Never Assessed REASON FOR VISIT Refill request PLAN OF CARE VITAL SIGNS MEDICATIONS Medication Instructions Dosage Frequency Start Date End Date Duration Status Norvasc 10 mg TAKE ONE TABLET BY MOUTH DAILY 30 Active Quinapril HCl 20 mg TAKE THREE TABLETS BY MOUTH ONCE DAILY 30 Active RESULTS No Results PROCEDURES No [...] History left knee replacement 2018 Hospitalization History [facility]- Right knee surgery. discharged 01/27/17 Hospitalization History [facility]- Left knee replacement 06/16/2017
--- OUTSIDE RECORDS SUMMARY | 2018-02-11 11:11 | XMS REPORT ---
Author Author LIEN TINEO [facility] Address [address] [place] [address] Care Team Providers Care Machine Iii Coremaker Name Role Phone LIEN TINEO Unavailable PROBLEMS Type Condition ICD9-CM Code PFI15-TN Code Onset Dates Condition Status SNOMED Code Problem GERD with esophagitis K21.0 Active 795654470 Problem Dyspnea on exertion R06.09 Active 80966730 Problem Essential hypertension I10 Active 65657072 Problem Allergic state, subsequent encounter T78.40XD Active 505925582 Problem Arthritis M19.90 Active 0094360 Problem Dyspnea, unspecified R06.00 Active 731434525 Problem Left upper quadrant pain R10.12 Active 074061460 Problem Hypothyroidism (acquired) E03.9 Active 310879416 Problem Chronic superficial gastritis without bleeding K29.30 Active 688851262 Problem Infraspinatus tendon tear, left, subsequent encounter S46.812D Active 7103610 Problem IRVIN (obstructive sleep apnea) G47.33 Active 98142056 Problem Supraspinatus tendon tear, left, subsequent encounter S46.812D Active 567954368 Problem Restless legs syndrome G25.81 Active 278468542 Problem Other specified hypothyroidism E03.8 Active 318385180 Problem Rupture of tendon of right shoulder S46.911A Active 782861105 Problem Bronchitis J40 Active 24057989 Problem Asthma J45.909 Active 336834876 Problem Asthma with acute exacerbation J45.901 Active 222836875 ALLERGIES Substance Reaction Event Type Date Status Celebrex nausea Drug Allergy Apr, Active ENCOUNTERS Encounter Location Date Diagnosis [facility] [address] [facility] [id number] [address] Oct, [facility] [address] [facility] [id number] [place] [address] Sep, [facility] [address] [address] Sep, Long-term use of high-risk medication Z79.899 [place] [address] [address]13- 8567 Sep, Long-term use of high-risk medication Z79.899 [place] [address] 18425- 6328 July, [place] [address] 39780- 4756 Jun, [place] [address] [address]- 5108 May, Asthma J45.909 [place] [address] 84258- 1481 May, [place] [address] 51446- 8944 Apr, Pre-op evaluation Z01.818 ; Allergic state, subsequent encounter T78.40XD and BMI 45.0-49.9, adult Z68.42 [place] [address] [address]74- 5510 Mar, [place] [address] 24761- 2427 Mar, [facility] [address] [address] Mar, Cough R05 ; Acute nasopharyngitis J00 and BMI 45.0-49.9, adult Z68.42 [place] [address] 33755- 7994 Mar, [facility] [address] [address]- 2650 Jan, Ganglion cyst of finger of right hand M67.441 [place] [address] 21640- 3365 Dec, [place] [address] 97680- 8055 Dec, Change in vision H53.9 ; Arthritis M19.90 ; Essential hypertension I10 ; GERD with esophagitis K21.0 ; Hypothyroidism (acquired) E03.9 and Ganglion cyst of joint of finger of left hand M67.442 [place] [address] 38770- 5457 15 Nov, 2016 Encounter for immunization Z23 [place] [address] 56819- 2711 Nov, [place] [address] 47745- 6915 Sep, [place] [address] 04485- 8630 Aug, [place] [address] 86722- 0057 July, Cyst of joint of right hand M25.841 [place] [address] 19444- 3555 May, [place] [address] 37390- 6934 May, Fever, unspecified R50.9 and Influenza A J10.1 [place] [address] 33856- 3071 May, Left shoulder pain, unspecified chronicity M25.512 [place] [address] 83722- 1185 Apr, [place] [address] 12505- 0139 14 Apr, 2016 Infraspinatus tendon tear, left, subsequent encounter S46.812D and Supraspinatus tendon tear, left, subsequent encounter S46.812D [place] [address] [place] [id number] [place] [address] 14015- 3617 Apr, [facility] [address] [place] [id number] [place] [address] 44422- 7677 Mar, Left shoulder pain, unspecified chronicity M25.512 [place] [address] [place] [id number] [place] [address] 73008- 9118 Mar, [facility] [address] 39692- 5851 Mar, Left shoulder pain, unspecified chronicity M25.512 [place] [address] [place] [id number] [place] [address] 53351- 9290 Feb, Chronic superficial gastritis without bleeding K29.30 ; Left upper quadrant pain R10.12 ; Essential hypertension I10 ; Dyspnea on exertion R06.09 and Palpitations R00.2 [place] [address] [place] [id number] [place] [address] 81933- 3901 Jan, Colon polyps K63.5 [place] [address] [place] [id number] [place] [address] 10062- 0744 Jan, Colon polyps K63.5 [place] [address] [place] [id number] [place] [address] 08857- 2725 Dec, [facility] [address] [place] [address] 36886 -1508 Dec, GERD with esophagitis K21.0 [facility] [address] [place] [id number] [place] [address] 05661- 5467 Nov, Arthritis pain M19.90 ; Colon polyps K63.5 ; Seasonal allergic rhinitis due to pollen J30.1 and Encounter for immunization Z23 [place] [address] [place] [id number] [place] [address] 26741- 3506 Nov, [place] [address] [place] [address] 03014- 0486 Oct, [facility] [address] [place] [id number] [place] [address] 31859- 2060 Sep, [facility] [address] [place] [id number] [place] [address] 81681- 8961 July, [facility] [address] [place] [id number] [place] [address] 40356- 0389 July, [facility] [address] [place] [id number] [place] [address] 33945- 5812 July, Asthma with acute exacerbation J45.901 and Bronchitis J40 [facility] [address] [place] [id number] [place] [address] 30283- 5938 Jun, [place] [address] [place] [id number] [place] [address] 22421- 3693 May, Other specified hypothyroidism E03.8 and 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 [place] [address] 43808- 8873 Apr, [facility] [address] [place] [id number] [place] [address] 04754- 5390 Apr, Sacroiliac joint pain M53.3 [place] [address] [place] [id number] [place] [address] 62622- 5407 Mar, Other specified hypothyroidism E03.8 ; Restless legs syndrome G25.81 ; Asthma with acute exacerbation J45.901 and Bronchitis J40 [facility] [address] [place] [id number] [place] [address] 83859 -7325 Feb, Upper respiratory symptom R09.89 [facility] [address] [place] [id number] [place] [address] 22229- 1097 Feb, Restless leg G25.81 and Asthma J45.909 [facility] [address] [place] [id number] [place] [address] 26783- 5998 Dec, Rupture of tendon of right shoulder S46.911A [facility] [address] [place] [id number] [place] [address] 46789- 8124 05 Dec, 2014 Sacroiliac joint pain M53.3 [place] [address] [place] [id number] [place] [address] 04294- 5517 30 Nov, 2014 [place] [address] 39264- 5361 28 Nov, 2014 Lumbago of lumbosacaral region with sciatica 724.2 and Sacroiliitis 720.2 [place] [address] 35371- 7130 22 Nov, 2014 Influenza vaccine administered V04.81 [place] [address] 89301- 8018 Nov, [place] [address] 68007- 2175 Nov, [place] [address] 90790- 4562 18 Nov, 2014 Thyroid function test abnormal 794.5 and Thyroid antibody positive 795.79 [place] [address] [place] [id number] [place] [address] 58556- 5171 16 Nov, 2014 Hypothyroidism 244.9 ; Thyroid antibody positive 795.79 and Right shoulder pain 719.41 [place] [address] [place] [id number] [place] [address] 68767- 8466 Oct, [place] [address] [place] [id number] [place] [address] 10744- 5824 18 Oct, 2014 Thyroid function test abnormal 794.5 [place] [address] [place] [id number] [place] [address] 97851- 4988 14 Oct, 2014 Hypertension 401.9 and Bilateral leg pain 729.5 [place] [address] [place] [id number] [place] [address] 40823- 0154 13 Oct, 2014 [place] [address] [place] [id number] [place] [address] 96178- 6588 10 Oct, 2014 Bilateral leg pain 729.5 and Hypertension 401.9 [facility] [address] [facility] [id number] [address]- 7271 Sep, Bilateral leg pain 729.5 ; Hypertension 401.9 and Edema 782.3 [facility] [address] [id number] [address]- 5487 Aug, Unspecified hereditary and idiopathic peripheral neuropathy 356.9 and Arthritis 716.90 [facility] [address] [place] [id number] [place] [address] 99817- 1196 Aug, [facility] [address] [place] [id number] [place] [address] 77928- 2962 July, [facility] [address] [place] [id number] [place] [address] 97822- 7659 Jun, [facility] [address] [place] [id number] [place] [address] 86117- 9244 Jun, [facility] [address] [id number] [address]- 6892 Jun, [facility] [address] [address]- 7664 May, [facility] [address] [place] [id number] [address]- 3593 May, [facility] [address] [address]- 6024 May, [facility] [address] [address]- 3088 24 May, 2014 [facility] [address] [address]- 8730 16 May, 2014 [facility] [address] [place] [id number] [address]- 2251 16 May, 2014 [facility] [address] [address]- 4214 10 May, 2014 [facility] [address] [place] [id number] [address]- 5258 10 May, 2014 [facility] [place] [facility] [address] [id number] [place] [address]- 7171 May, [facility] [place] [facility] [address] [id number] [place] [address]- 0737 May, [facility] [place] [facility] [address] [id number] [place] [address]- 0135 May, 2014 [facility] [place] [facility] [address] [id number] [place] [address]- 8323 Apr, 2014 [facility] [place] [facility] [address] [id number] [place] [address]- 2616 Apr, 2014 [facility] [place] [facility] [address] [id number] [place] [address]- 8358 Apr, 2014 [facility] [place] [facility] [address] [facility] [id number] [place] [address]- 7602 Apr, 2014 [facility] [place] [facility] [address] [id number] [place] [address]- 4672 Apr, [facility] [place] [facility] [address] [facility] [id number] [place] [address]- 4190 Apr, [facility] [place] [facility] [address] [facility] [id number] [place] [address]- 3740 Apr, [facility] [place] [facility] [address] [facility] [id number] [place] [address]- 2399 Apr, [facility] [place] [facility] [address] [id number] [place] [address]- 5077 Mar, [facility] [place] [facility] [address] [id number] [place] [address]- 2342 Mar, [facility] [place] [facility] [address] [facility] [id number] [place] [address]- 1867 Mar, [facility] [place] [facility] [address] [facility] [id number] [place] [address]- 4950 Mar, [facility] [place] [facility] [address] [id number] [place] [address]- 7920 Mar, [facility] [place] [facility] [address] [id number] [place] [address]- 9116 Mar, [facility] [place] [facility] [address] [id number] [place] [address]- 1811 Feb, [facility] [place] [facility] [address] [id number] [place] [address]- 8594 Feb, [facility] [place] [facility] [address] [id number] [place] [address]- 0523 Feb, [facility] [place] [facility] [address] [id number] [place] [address]- 5145 Feb, [facility] [place] [facility] [address] [id number] [place] [address]- 8727 Feb, [facility] [place] [facility] [address] [id number] [place] [address]- 5118 Feb, [facility] [place] [facility] [address] [id number] [place] [address]- 1903 Feb, [facility] [place] [facility] [address] [id number] [place] [address]- 5326 Feb, [facility] [place] [facility] [address] [id number] [place] [address]- 7731 Feb, [facility] [place] [facility] [address] [id number] [place] [address]- 3342 Feb, [facility] [place] [facility] [address] [id number] [place] [address]- 1142 Feb, [facility] [place] [facility] [address] [id number] [place] [address]- 1984 Feb, [facility] [place] [facility] [address] [id number] [place] [address]- 7281 Feb, [facility] [place] [facility] [address] [id number] [place] [address]- 9378 15 Feb, 2014 [facility] [place] [facility] [address] [id number] [place] [address]- 8731 Feb, [facility] [place] [facility] [address] [id number] [place] [address]- 0066 Feb, [facility] [place] [facility] [address] [id number] [place] [address]- 8776 Feb, [facility] [place] [facility] [address] [id number] [place] [address]- 5515 Feb, [facility] [place] [facility] [address] [id number] [place] [address]- 9531 Feb, [facility] [place] [facility] [address] [id number] [place] [address]- 2129 Feb, [facility] [place] [facility] [address] [id number] [place] [address]- 6081 Feb, [facility] [place] [facility] [address] [id number] [place] [address]- 7431 Feb, [facility] [place] [facility] [address] [id number] [place] [address]- 0451 Feb, [facility] [place] [facility] [address] [facility] [id number] [place] [address]- 7721 Jan, [facility] [place] [facility] [address] [id number] [place] [address]- 4999 Jan, [facility] [place] [facility] [address] [id number] [place] [address]- 4165 Jan, [facility] [place] [facility] [address] [id number] [place] [address]- 2086 Jan, [facility] [place] [facility] [address] [id number] [place] [address]- 4115 Jan, [facility] [place] [facility] [address] [id number] [place] [address]- 0957 Jan, [facility] [place] [facility] [address] [id number] [place] [address]- 6712 Jan, [facility] [place] [facility] [address] [id number] [place] [address]- 4689 Jan, [facility] [place] [facility] [address] [id number] [place] [address]- 5696 Jan, [facility] [place] [facility] [address] [id number] [place] [address]- 6707 Dec, [facility] [place] [facility] [address] [id number] [place] [address]- 1409 Dec, [facility] [place] [facility] [address] [id number] [place] [address]- 4596 Dec, [facility] [place] [facility] [address] [id number] [place] [address]- 3020 Dec, [facility] [place] [facility] [address] [id number] [place] [address]- 4314 Dec, [facility] [place] [facility] [address] [id number] [place] [address]- 1099 Dec, [facility] [place] [facility] [address] [id number] [place] [address]- 9849 Dec, [facility] [place] [facility] [address] [id number] [place] [address]- 2921 Dec, [facility] [place] [facility] [address] [id number] [place] [address]- 8438 Dec, [facility] [place] [facility] [address] [id number] [place] [address]- 1641 Dec, [facility] [place] [facility] [address] [id number] [place] [address]- 1209 Nov, [facility] [place] [facility] [address] [id number] [place] [address]- 0250 Nov, [facility] [place] [facility] [address] [id number] [place] [address]- 6360 Nov, [facility] [place] [facility] [address] [id number] [place] [address]- 7214 Nov, [facility] [place] [facility] [address] [id number] [place] [address]- 5112 Nov, [facility] [place] [facility] [address] [id number] [place] [address]- 6749 Nov, [facility] [place] [facility] [address] [id number] [place] [address]- 4104 Nov, [facility] [place] [facility] [address] [id number] [place] [address]- 3342 Nov, [facility] [place] [facility] [address] [id number] [place] [address]- 5411 Nov, [facility] [place] [facility] [address] [id number] [place] [address]- 4946 Nov, [facility] [place] [facility] [address] [id number] [place] [address]- 7529 Oct, [facility] [place] [facility] [address] [id number] [place] [address]- 1052 Oct, [facility] [place] [facility] [address] [id number] [place] [address]- 2700 Oct, [facility] [place] [facility] [address] [id number] [place] [address]- 9723 Oct, [facility] [place] [facility] [address] [id number] [place] [address]- 9392 Oct, [facility] [place] [facility] [address] [id number] [place] [address]- 4305 Oct, [facility] [place] [facility] [address] [id number] [place] [address]- 7641 Oct, [facility] [place] [facility] [address] [id number] [place] [address]- 4779 Oct, [facility] [place] [facility] [address] [id number] [place] [address]- 5814 Oct, [facility] [place] [facility] [address] [id number] [place] [address]- 7946 Oct, [facility] [place] [facility] [address] [id number] [place] [address]- 3047 14 Sep, 2013 [facility] [place] [facility] [address] [id number] [place] [address]- 3806 14 Sep, 2013 [facility] [place] [facility] [address] [id number] [place] [address]- 2704 Aug, [facility] [place] [facility] [address] [id number] [place] [address]- 4376 Aug, [facility] [place] [facility] [address] [id number] [place] [address]- 5993 Aug, [facility] [place] [facility] [address] [id number] [place] [address]- 9227 Aug, [facility] [place] [facility] [address] [id number] [place] [address]- 5022 Aug, [facility] [place] [facility] [address] [id number] [place] [address]- 0546 Aug, [facility] [place] [facility] [address] [id number] [place] [address]- 1058 Aug, [facility] [place] [facility] [address] [id number] [place] [address]- 9151 Aug, [facility] [place] [facility] [address] [id number] [place] [address]- 0690 Aug, [facility] [place] [facility] [address] [id number] [place] [address]- 3151 Aug, [facility] [place] [facility] [address] [id number] [place] [address]- 5071 Aug, [facility] [place] [facility] [address] [id number] [place] [address]- 1943 Aug, [facility] [place] [facility] [address] [id number] [place] [address]- 9191 July, [facility] [place] [facility] [address] [id number] [place] [address]- 5327 July, [facility] [place] [facility] [address] [id number] [place] [address]- 0750 July, [facility] [place] [facility] [address] [id number] [place] [address]- 9370 July, [facility] [place] [facility] [address] [id number] [place] [address]- 9388 July, [facility] [place] [facility] [address] [id number] [place] [address]- 0580 July, [facility] [place] [facility] [address] [id number] [place] [address]- 2732 July, [facility] [place] [facility] [address] [id number] [place] [address]- 0440 July, [facility] [place] [facility] [address] [id number] [place] [address]- 4151 Jun, [facility] [place] [facility] [address] [id number] [place] [address]- 1451 Jun, [facility] [place] [facility] [address] [id number] [place] [address]- 7017 May, [facility] [place] [facility] [address] [id number] [place] [address]- 2099 May, [facility] [place] [facility] [address] [id number] [place] [address] May, [facility] [place] [facility] [address] [id number] [place] [address] May, [facility] [place] [facility] [address] [id number] [place] [address] May, [facility] [place] [facility] [address] [id number] [place] [address] 14 May, 2013 [facility] [place] [facility] [address] [id number] [place] [address] May, [facility] [place] [facility] [address] [id number] [place] [address] May, [facility] [place] [facility] [address] [id number] [place] [address] Apr, [facility] [place] [facility] [address] [id number] [place] [address] Apr, [facility] [place] [facility] [address] [id number] [place] [address] Apr, [facility] [place] [facility] [address] [id number] [place] [address]- [address] Apr, [facility] [place] [facility] [address] [id number] [place] [address] Apr, [facility] [place] [facility] [address] [id number] [place] [address] Apr, [facility] [place] [facility] [address] [id number] [place] [address] Apr, [facility] [place] [facility] [address] [id number] [place] [address] Apr, [facility] [place] [facility] [address] [id number] [place] [address] Mar, [facility] [place] [facility] [address] [id number] [place] [address]- [address] Mar, [facility] [place] [facility] [address] [id number] [place] [address]- [address] Mar, [facility] [place] [facility] [address] [id number] [place] [address]- [address] Mar, [facility] [place] [facility] [address] [facility] [id number] [place] [address]- [address] Mar, [facility] [place] [facility] [address] [id number] [place] [address] Mar, [facility] [place] [facility] [address] [id number] [place] [address]- [address]272 Mar, [facility] [place] [facility] [address] [id number] [place] [address]- [address] Mar, [facility] [place] [facility] [address] [id number] [place] [address] Mar, [facility] [place] [facility] [address] [id number] [place] [address] Mar, [facility] [place] [facility] [address] [id number] [place] [address] Feb, [facility] [place] [facility] [address] [id number] [place] [address] Feb, [facility] [place] [facility] [address] [id number] [place] [address] Feb, [facility] [place] [facility] [address] [id number] [place] [address] Feb, [facility] [place] [facility] [address] [id number] [place] [address] Jan, [facility] [place] [facility] [address] [id number] [place] [address] Jan, [facility] [place] [facility] [address] [id number] [place] [address] Dec, [facility] [place] [facility] [address] [id number] [place] [address]- [address] Dec, [facility] [place] [facility] [address] [id number] [place] [address] Dec, [facility] [place] [facility] [address] [id number] [place] [address] Dec, [facility] [place] [facility] [address] [id number] [place] [address] 18 Dec, 2012 [facility] [place] [facility] [address] [id number] [place] [address]- [address] 18 Dec, 2012 [facility] [place] [facility] [address] [id number] [place] [address]- [address] 14 Dec, 2012 [facility] [place] [facility] [address] [id number] [place] [address]- [address] 14 Dec, 2012 [facility] [place] [facility] [address] [id number] [place] [address]- [address] Dec, [facility] [place] [facility] [address] [id number] [place] [address]- [address] Dec, [facility] [place] [facility] [address] [id number] [place] [address]- [address] Dec, [facility] [place] [facility] [address] [id number] [place] [address] Dec, [facility] [place] [facility] [address] [id number] [place] [address]- [address] Dec, [facility] [place] [facility] [address] [id number] [place] [address]- [address] 25 Nov, 2012 [facility] [place] [facility] [address] [id number] [place] [address]- [address] 24 Nov, 2012 [facility] [place] [facility] [address] [id number] [place] [address]- [address] 23 Nov, 2012 [facility] [place] [facility] [address] [id number] [place] [address] 11 Nov, 2012 [facility] [place] [facility] [address] [id number] [place] [address]- [address] Nov, [facility] [place] [facility] [address] [id number] [place] [address] Oct, [facility] [place] [facility] [address] [id number] [place] [address] Oct, [facility] [place] [facility] [address] [id number] [place] [address]- [address] Oct, [facility] [place] [facility] [address] [id number] [place] [address] Oct, [facility] [place] [facility] [address] [id number] [place] [address] Oct, [facility] [place] [facility] [address] [id number] [place] [address] Oct, [facility] [place] [facility] [address] [id number] [place] [address] Oct, [facility] [place] [facility] [address] [id number] [place] [address] Sep, [facility] [place] [facility] [address] [id number] [place] [address] Sep, [facility] [place] [facility] [address] [id number] [place] [address] Sep, [facility] [place] [facility] [address] [id number] [place] [address] Aug, [facility] [place] [facility] [address] [id number] [place] [address] Aug, [facility] [place] [facility] [address] [id number] [place] [address] Aug, [facility] [place] [facility] [address] [id number] [place] [address] 97[address] Aug, [facility] [place] [facility] [address] [id number] [place] [address] July, [facility] [place] [facility] [address] [id number] [place] [address] July, [facility] [place] [facility] [address] [id number] [place] [address] July, [facility] [place] [facility] [address] [id number] [place] [address] July, [facility] [place] [facility] [address] [id number] [place] [address] 8[address] Jun, [facility] [place] [facility] [address] [id number] [place] [address] 6036 Jun, [facility] [place] [facility] [address] [id number] [place] [address]- 2849 May, [facility] [place] [facility] [address] [id number] [place] [address] 4678 May, [facility] [place] [facility] [address] [id number] [place] [address] 6[address] Apr, [facility] [place] [facility] [address] [id number] [place] [address]- [address] Apr, [facility] [place] [facility] [address] [id number] [place] [address] Feb, [facility] [place] [facility] [address] [id number] [place] [address] 99[address] Feb, [facility] [place] [facility] [address] [id number] [place] [address]- [address] Feb, [facility] [place] [facility] [address] [id number] [place] [address] Feb, [facility] [place] [facility] [address] [id number] [place] [address]- [address] Feb, [facility] [place] [facility] [address] [id number] [place] [address]- 478[address] Feb, [facility] [place] [facility] [address] [id number] [place] [address]- [address] Jan, [facility] [place] [facility] [address] [id number] [place] [address] 9[address] Jan, [facility] [place] [facility] [address] [id number] [place] [address]- 5770 Jan, [facility] [place] [facility] [address] [id number] [place] [address] Jan, [facility] [place] [facility] [address] [id number] [place] [address]- 3947 Jan, [facility] [place] [facility] [address] [id number] [place] [address]- 1066 Jan, [facility] [place] [facility] [address] [id number] [place] [address] Jan, [facility] [place] [facility] [address] [id number] [place] [address]7 Jan, [facility] [place] [facility] [address] [id number] [place] [address], [place] [address]- [address] Jan, [facility] [place] [facility] [address] [id number] [place] [address] Jan, [facility] [place] [facility] [address] [facility] [id number] [place] [address]- 74[address] Jan, [facility] [place] [facility] [address] [id number] [place] [address]- 76[address] Jan, [facility] [place] [facility] [address] [id number] [place] [address] 1617 Jan, [facility] [place] [facility] [address] [facility] [id number] [place] [address] 7948 Dec, [facility] [place] [facility] [address] [id number] [place] [address]606 Dec, [facility] [place] [facility] [address] [id number] [address] Dec, [facility] [place] [facility] [address] [id number] [place] [address]- 9125 Dec, [facility] [place] [facility] [address] [facility] [id number] [place] [address] Dec, [facility] [place] [facility] [address] [facility] [id number] [place] [address] Dec, [facility] [place] [facility] [address] [id number] [place] [address] 2543 Dec, [facility] [place] [facility] [address] [id number] [place] [address] 2546 Nov, [facility] [place] [facility] [address] [id number] [place] [address]- 2546 Nov, [facility] [place] [facility] [address] [id number] [place] [address] 2546 Oct, [facility] [place] [facility] [address] [id number] [place] [address]- 7870 Oct, [facility] [place] [facility] [address] [id number] [place] [address]- 3285 Sep, [facility] [place] [facility] [address] [id number] [place] [address]- 9422 Sep, [facility] [place] [facility] [address] [id number] [place] [address]- 3517 Sep, [facility] [place] [facility] [address] [id number] [place] [address]- 4001 Sep, [facility] [place] [facility] [address] [id number] [place] [address]- 3552 July, [facility] [place] [facility] [address] [id number] [place] [address]- 1006 July, [facility] [place] [facility] [address] [id number] [place] [address] 89[address] July, [facility] [place] [facility] [address] [id number] [place] [address] 9384 Jun, [facility] [place] [facility] [address] [id number] [place] [address]- 3406 Jun, [facility] [place] [facility] [address] [id number] [place] [address]- 0054 Jun, [facility] [place] [facility] [address] [id number] [place] [address]- 7761 16 Jun, 2011 [facility] [address] [id number] [place] [address]- 1444 13 Jun, 2011 [facility] [place] [facility] [address] [id number] [place] [address]- 2021 10 Jun, 2011 [facility] [place] [facility] [address] [id number] [place] [address]- 4894 06 Jun, 2011 [facility] [place] [facility] [address] [id number] [place] [address]- 8348 05 Jun, 2011 [facility] [place] [facility] [address] [id number] [place] [address]- 7666 Jun, [facility] [place] [facility] [address] [id number] [place] [address]- 7855 May, [facility] [address] [id number] [place] [address]- 9959 May, [facility] [place] [facility] [address] [id number] [place] [address]- 6423 May, [facility] [address] [id number] [place] [address]- 1127 May, [facility] [place] [facility] [address] [facility] [id number] [place] [address]- 3572 May, [facility] [address] [id number] [place] [address]- 7197 Apr, [facility] [place] [facility] [address] [id number] [place] [address]- 0492 Mar, [facility] [place] [facility] [address] [id number] [place] [address]- 4266 Mar, [facility] [place] [facility] [address] [id number] [place] [address]- 3719 Feb, [facility] [place] [facility] [address] [facility] [id number] [place] [address]- 5197 Feb, [facility] [place] [facility] [address] [id number] [place] [address]- 2313 05 Feb, 2011 [facility] [place] [facility] [address] [id number] [place] [address]- 9062 Jan, [facility] [place] [facility] [address] [id number] [place] [address]- 0466 Dec, [facility] [place] [facility] [address] [id number] [place] [address]- 7160 Dec, [facility] [place] [facility] [address] [id number] [place] [address]- 5654 Dec, [facility] [place] [facility] [address] [id number] [place] [address]- 4885 July, [facility] [place] [facility] [address] [id number] [place] [address]- 6265 May, [facility] [place] [facility] [address] [id number] [place] [address]- 4808 Feb, [facility] [place] [facility] [address] [id number] [place] [address] Feb, [facility] [place] [facility] [address] [id number] [place] [address]- 3257 Feb, [facility] [place] [facility] [address] [facility] [id number] [place] [address]- 7896 Jan, [facility] [place] [facility] [address] [id number] [place] [address]- 6593 Dec, [facility] [place] [facility] [address] [id number] [place] [address]- 4853 Dec, [facility] [place] [facility] [address] [id number] [place] [address]- 7127 Oct, [facility] [place] [facility] [address] [id number] [place] [address]- 0976 July, [facility] [place] [facility] [address] [id number] [place] [address]- 0296 Apr, [facility] [address] [id number] [address]- 74[address] Mar, [facility] [id number] [address]- 6[address] Feb, [facility] [id number] [address] Feb, [facility] [id number] [place] [address] 185817- 0787 Feb, [facility] [id number] [address]- 1826 Feb, [facility] [id number] [place] [address] 433717- 9280 Feb, [facility] [id number] [address]- 4[address] Jan, [facility] [id number] [address]- 7991 Jan, [facility] [id number] [address]- 9[address] Dec, [facility] [id number] [address]- 6[address] Nov, IMMUNIZATIONS No Known Immunizations SOCIAL HISTORY Never Assessed REASON FOR VISIT Surgical clearance, Left new replacment at with Marian [facility]DAZ PLAN OF CARE Activity Details Follow Up Routine appt Reason: VITAL SIGNS Height 70 in 2017-05-18 Weight 319.7 lbs 2017-05-18 Temperature 98.7 degrees Fahrenheit 2017-05-18 Heart Rate 85 bpm 2017-05-18 Respiratory Rate 22 2017-05-18 Oximetry on room air:93 % 2017-05-18 BMI 45.87 kg/m2 2017-05-18 Blood pressure systolic 126 mmHg 2017-05-18 Blood pressure diastolic 68 mmHg 2017-05-18 MEDICATIONS Medication Instructions Dosage Frequency Start Date End Date Duration Status Omeprazole 20 mg Orally 2 times a day 1 capsule 12h 30 Active C-PAP Machine Active Hydrochlorothiazide 50 MG TAKE ONE TABLET BY MOUTH DAILY 30 Active Gabapentin 300 MG TAKE ONE CAPSULE BY MOUTH ONCE DAILY AT BEDTIME 30 Active Meloxicam 15 MG TAKE ONE TABLET BY MOUTH ONCE DAILY. 90 Active MiraLax 17 gram/dose take 17 g mixed with 8 oz. water or juice by Oral route 1 time per day Dec, Active Ventolin HFA 90 mcg/actuation 2 puffs by Inhalation route 4 times per day PRN keep on file don't fill today Feb, Not-Taking Advair Diskus 250-50 MCG/DOSE Inhalation Twice a day 1 puffs by Inhalation route 2 times per day 12h 30 days Not-Taking Pantoprazole Sodium 20 mg Orally 2 times a day 1 tablet 12h Dec, 30 day(s) Not-Taking Requip 0.5 MG TAKE ONE TABLET BY MOUTH ONCE DAILY 1 TO 3 HOURS BEFORE BEDTIME 30 Not-Taking NyQuil 60-7.5-30-1000 MG/30ML Not-Taking Vitamin D3 1,000 unit 2 capsule by Oral route 1 time per day Dec, Active Fish Oil 1000 MG Orally Twice a day 1 capsule 12h Active Quinapril HCl 20 MG TAKE THREE TABLETS BY MOUTH ONCE DAILY 30 Active Norvasc 10 MG TAKE ONE TABLET BY MOUTH DAILY 30 Active Fluticasone Propionate 50 MCG/ACT Nasally daily prn 1 spray in each nostril Active Aspirin 81 mg 1 tablet by Oral route 1 time per day Feb, Active Levothyroxine Sodium 200 MCG TAKE ONE TABLET BY MOUTH DAILY Active RESULTS No Results PROCEDURES Procedure Date Ordered Result Body Site [facility] VISIT ESTABLISHED PATIENT May 18, 2017 INSTRUCTIONS MEDICATIONS ADMINISTERED No Known Medications [...]
--- OUTSIDE RECORDS SUMMARY | 2018-02-11 11:12 | XMS REPORT ---
Author Author TAMMY COPELAND [facility] Address [address] [place] [address] Care Team Providers Care [employer] Name Role Phone CARLEEArabella TAMMY Unavailable PROBLEMS Type Condition ICD9-CM Code QUP29-ZG Code Onset Dates Condition Status SNOMED Code Problem GERD with esophagitis K21.0 Active 721027729 Problem Dyspnea on exertion R06.09 Active 38680769 Problem Essential hypertension I10 Active 32810800 Problem Allergic state, subsequent encounter T78.40XD Active 735139543 Problem Arthritis M19.90 Active 8782318 Problem Dyspnea, unspecified R06.00 Active 555165029 Problem Left upper quadrant pain R10.12 Active 268747527 Problem Hypothyroidism (acquired) E03.9 Active 920669134 Problem Chronic superficial gastritis without bleeding K29.30 Active 111591152 Problem Infraspinatus tendon tear, left, subsequent encounter S46.812D Active 3316962 Problem IRVIN (obstructive sleep apnea) G47.33 Active 20899722 Problem Supraspinatus tendon tear, left, subsequent encounter S46.812D Active 256349302 Problem Restless legs syndrome G25.81 Active 399550781 Problem Other specified hypothyroidism E03.8 Active 550109223 Problem Rupture of tendon of right shoulder S46.911A Active 539221584 Problem Bronchitis J40 Active 47131267 Problem Asthma J45.909 Active 424769530 Problem Asthma with acute exacerbation J45.901 Active 001759871 ALLERGIES No Information ENCOUNTERS Encounter Location Date Diagnosis [facility] [address] [facility] [id number] [address] Oct, [facility] [address] [id number] [address] Sep, [facility] [address] [id number], [place] [address] Sep, Long-term use of high-risk medication Z79.899 [facility] [address] [place] [address] 97102- 6116 Sep, Long-term use of high-risk medication Z79.899 [facility] [id number] [place] [address] 13176- 7826 July, [facility] [id number] [place] [address] 11670- 6991 Jun, [facility] [id number] [place] [address] 00681- 5843 May, Asthma J45.909 [place] [address] 0[address]47- 9092 May, [facility] [id number] [place] [address] 57375- 4621 Apr, Pre-op evaluation Z01.818 ; Allergic state, subsequent encounter T78.40XD and BMI 45.0-49.9, adult Z68.42 [place] [id number] [place] [address] 13296- 7746 Mar, [facility] [id number] [place] [address] 80944- 6832 Mar, [facility] [id number] [place] [address] 11879 -8382 Mar, Cough R05 ; Acute nasopharyngitis J00 and BMI 45.0-49.9, adult Z68.42 [facility] [id number] [place] [address] 13773- 1633 Mar, [facility] [address] 93944- 5580 Jan, Ganglion cyst of finger of right hand M67.441 [place] [id number] [place] [address] 78487- 1568 Dec, [place] [id number] [place] [address] 43439- 0907 10 Dec, 2016 Change in vision H53.9 ; Arthritis M19.90 ; Essential hypertension I10 ; GERD with esophagitis K21.0 ; Hypothyroidism (acquired) E03.9 and Ganglion cyst of joint of finger of left hand M67.442 [place] [address] 73946- 2769 15 Nov, 2016 Encounter for immunization Z23 [place] [address] 97074- 5432 Nov, [place] [address] 07164- 1087 Sep, [place] [address] 68927- 9093 Aug, [place] [address] 09499- 6804 July, Cyst of joint of right hand M25.841 [place] [id number] [place] [address] 30170- 0527 May, [place] [address] 40222- 2565 May, Fever, unspecified R50.9 and Influenza A J10.[address] [address]448- 9323 May, Left shoulder pain, unspecified chronicity M25.512 [place] [id number] [place] [address] 52030- 7651 Apr, [place] [address] 35260- 8459 14 Apr, 2016 Infraspinatus tendon tear, left, subsequent encounter S46.812D and Supraspinatus tendon tear, left, subsequent encounter S46.812D [place] [address] 59372- 8956 Apr, [facility] [id number] [place] [address] 28155- 3408 Mar, Left shoulder pain, unspecified chronicity M25.512 [facility] [id number] [place] [address] 91077- 0569 Mar, [facility] [id number] [place] [address] 60480- 2929 Mar, Left shoulder pain, unspecified chronicity M25.512 [place] [id number] [place] [address] 60666- 8366 Feb, Chronic superficial gastritis without bleeding K29.30 ; Left upper quadrant pain R10.12 ; Essential hypertension I10 ; Dyspnea on exertion R06.09 and Palpitations R00.2 [place] [id number] [place] [address] 17281- 7933 Jan, Colon polyps K63.5 [place] [id number] [place] [address] 18122- 6910 Jan, Colon polyps K63.5 [place] [address] 78818- 7397 Dec, [facility] [id number] [place] [address] 47321 -6971 Dec, GERD with esophagitis K21.0 [facility] [id number] [place] [address] 22179- 5582 Nov, Arthritis pain M19.90 ; Colon polyps K63.5 ; Seasonal allergic rhinitis due to pollen J30.1 and Encounter for immunization Z23 [facility] [id number] [place] [address] 20609- 5465 Nov, [place] [id number] [place] [address] 34820- 6327 Oct, [facility] [address] 67583- 3698 Sep, [facility] [id number] [place] [address] 90427- 4640 July, [facility] [id number] [place] [address] 07986- 5854 July, [facility] [id number] [place] [address] 26038- 6387 July, Asthma with acute exacerbation J45.901 and Bronchitis J40 [facility] [address] 71402- 2838 Jun, [facility] [address] 08438- 5355 May, Other specified hypothyroidism E03.8 and 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 [place] [address] 52339- 9165 Apr, [facility] [id number] [place] [address] 07423- 3159 Apr, Sacroiliac joint pain M53.3 [place] [id number] [place] [address] 06904- 0437 Mar, Other specified hypothyroidism E03.8 ; Restless legs syndrome G25.81 ; Asthma with acute exacerbation J45.901 and Bronchitis J40 [facility] [id number] [place] [address] 46148 -9652 Feb, Upper respiratory symptom R09.89 [facility] [id number] [place] [address] 45955- 2019 Feb, Restless leg G25.81 and Asthma J45.909 [facility] [id number] [place] [address] 12306- 4491 Dec, Rupture of tendon of right shoulder S46.911A [place] [id number] [place] [address] 56919- 1033 Dec, Sacroiliac joint pain M53.3 [facility] [id number] [place] [address] 71572- 0664 30 Nov, 2014 [place] [id number] [place] [address] 62869- 7502 28 Nov, 2014 Lumbago of lumbosacaral region with sciatica 724.2 and Sacroiliitis 720.2 [place] [address] 69057- 0420 22 Nov, 2014 Influenza vaccine administered V04.81 [place] [id number] [place] [address] 53766- 5973 Nov, [place] [id number] [place] [address] 64024- 5469 Nov, [place] [id number] [place] [address] 41246- 9418 18 Nov, 2014 Thyroid function test abnormal 794.5 and Thyroid antibody positive 795.79 [place] [id number] [place] [address] 66611- 5799 16 Nov, 2014 Hypothyroidism 244.9 ; Thyroid antibody positive 795.79 and Right shoulder pain 719.41 [place] [id number] [place] [address] 09837- 6083 Oct, [place] [id number] [place] [address] 41564- 7154 18 Oct, 2014 Thyroid function test abnormal 794.5 [place] [id number] [place] [address] 27255- 4740 14 Oct, 2014 Hypertension 401.9 and Bilateral leg pain 729.5 [place] [id number] [place] [address] 83373- 7915 13 Oct, 2014 [place] [id number] [place] [address] 92503- 5521 10 Oct, 2014 Bilateral leg pain 729.5 and Hypertension 401.9 [place] [address], [place] [address]- 6458 Sep, Bilateral leg pain 729.5 ; Hypertension 401.9 and Edema 782.3 [facility] [address], [place] [address]- 6262 Aug, Unspecified hereditary and idiopathic peripheral neuropathy 356.9 and Arthritis 716.90 [facility] [address], [place] [address]- 6635 Aug, [facility] [address] [id number], [place] [address]- 2043 July, [facility] [id number] [place] [address], [place] [address]- 1020 30 Jun, 2014 [facility] [id number] [address]- 1571 Jun, [facility] [address], [place] [address]- 2820 Jun, [facility] [address] [address]- 5544 May, [facility] [address], [place] [address]- 9220 May, [facility] [address], [place] [address]- 1753 May, [facility] [address], [place] [address]- 6542 24 May, 2014 [facility] [address], [place] [address]- 9067 16 May, 2014 [facility] [address], [place] [address]- 9483 16 May, 2014 [facility] [address] [id number], [place] [address]- 1286 10 May, 2014 [facility] [address], [place] [address]- 1980 May, [facility] [place] [facility] [address] [id number] [place] [address]- 3535 May, [facility] [place] [facility] [address] [id number] [place] [address]- 9654 May, [facility] [place] [facility] [address] [facility] [id number] [place] [address]- 7766 May, [facility] [place] [facility] [address] [id number] [place] [address]- 0842 Apr, 2014 [facility] [place] [facility] [address] [id number] [place] [address]- 6052 Apr, [facility] [place] [facility] [address] [id number] [place] [address]- 1671 Apr, 2014 [facility] [place] [facility] [address] [id number] [place] [address]- 3965 Apr, [facility] [place] [facility] [address] [id number] [place] [address]- 1703 Apr, [facility] [place] [facility] [address] [id number] [place] [address]- 6293 Apr, [facility] [place] [facility] [address] [facility] [id number] [place] [address]- 5590 Apr, [facility] [place] [facility] [address] [facility] [id number] [place] [address]- 1041 Apr, [facility] [place] [facility] [address] [id number], [place] [address]- 1107 Mar, [facility] [place] [facility] [address] [id number] [place] [address]- 9755 Mar, [facility] [place] [facility] [address] [facility] [id number] [place] [address]- 8276 Mar, [facility] [place] [facility] [address] [facility] [id number] [place] [address]- 4853 Mar, [facility] [place] [facility] [address] [id number] [place] [address]- 8449 Mar, [facility] [place] [facility] [address] [id number] [place] [address]- 6953 Mar, [facility] [place] [facility] [address] [id number] [place] 6516 Feb, [facility] [place] [facility] [address] [id number] [place] [address]- 7746 Feb, [facility] [place] [facility] [address] [id number] [place] [address]- 7490 Feb, [facility] [place] [facility] [address] [id number] [place] [address]- 4341 Feb, [facility] [place] [facility] [address] [id number] [place] [address]- 1362 Feb, [facility] [place] [facility] [address] [id number] [place] [address]- 1762 Feb, [facility] [place] [facility] [address] [id number] [place] [address]- 8747 Feb, [facility] [place] [facility] [address] [id number] [place] [address]- 9688 Feb, [facility] [place] [facility] [address] [id number] [place] [address]- 8195 Feb, [facility] [place] [facility] [address] [id number] [place] [address]- 6461 Feb, [facility] [place] [facility] [address] [id number] [place] [address]- 6310 Feb, [facility] [place] [facility] [address] [id number] [place] 5436 Feb, [facility] [place] [facility] [address] [id number] [place] [address]- 0036 Feb, [facility] [place] [facility] [address] [id number] [place] [address]- 4254 Feb, [facility] [place] [facility] [address] [id number] [place] [address]- 7143 Feb, [facility] [place] [facility] [address] [id number] [place] [address]- 0331 Feb, [facility] [place] [facility] [address] [id number] [place] 9477 Feb, [facility] [place] [facility] [address] [id number] [place] [address]- 5397 Feb, [facility] [place] [facility] [address] [id number] [place] [address]- 0920 Feb, [facility] [place] [facility] [address] [id number] [place] [address]- 3868 Feb, [facility] [place] [facility] [address] [id number] [place] [address]- 2207 Feb, [facility] [place] [facility] [address] [id number] [place] [address]- 9273 Feb, [facility] [place] [facility] [address] [id number] [place] [address]- 4616 Feb, [facility] [place] [facility] [address] [id number] [place] [address]- 6256 Jan, [facility] [place] [facility] [address] [id number] [place] [address]- 7579 Jan, [facility] [place] [facility] [address] [id number], [place] [address]- 2031 Jan, [facility] [place] [facility] [address] [id number] [place] [address]- 9171 Jan, [facility] [place] [facility] [address] [id number] [place] [address]- 4142 Jan, [facility] [place] [facility] [address] [id number] [place] [address]- 8297 Jan, [facility] [place] [facility] [address] [id number] [place] [address]- 2936 Jan, 2013 [facility] [place] [facility] [address] [id number] [place] [address]- 9323 Jan, [facility] [place] [facility] [address] [id number] [place] [address]- 3643 Jan, [facility] [place] [facility] [address] [id number] [place] [address]- 6242 Dec, [facility] [place] [facility] [address] [id number] [place] [address]- 1864 Dec, [facility] [place] [facility] [address] [id number] [place] 7831 Dec, [facility] [place] [facility] [address] [id number] [place] [address]- 1122 Dec, [facility] [place] [facility] [address] [facility] [id number] [place] [address]- 7193 Dec, [facility] [place] [facility] [address] [id number] [place] [address]- 8782 Dec, [facility] [place] [facility] [address] [id number] [place] [address]- 8087 Dec, [facility] [place] [facility] [address] [facility] [id number] [place] [address]- 8517 Dec, [facility] [place] [facility] [address] [id number] [place] [address]- 3268 Dec, [facility] [place] [facility] [address] [id number] [place] [address]- 3438 Dec, [facility] [place] [facility] [address] [id number] [place] [address]- 9408 30 Nov, 2013 [facility] [place] [facility] [address] [id number] [place] [address]- 8381 30 Nov, 2013 [facility] [place] [facility] [address] [id number] [place] [address]- 0200 12 Nov, 2013 [facility] [place] [facility] [address] [id number] [place] [address]- 6221 Nov, [facility] [place] [facility] [address] [id number] [place] [address]- 3395 Nov, [facility] [place] [facility] [address] [id number] [place] [address]- 0819 Nov, [facility] [place] [facility] [address] [id number] [place] [address]- 7930 Nov, [facility] [place] [facility] [address] [id number] [place] [address]- 8863 Nov, [facility] [place] [facility] [address] [id number] [place] [address]- 1298 Nov, [facility] [place] [facility] [address] [id number] [place] [address]- 9324 Nov, [facility] [place] [facility] [address] [id number] [place] [address]- 7882 Oct, [facility] [place] [facility] [address] [id number] [place] [address]- 8269 Oct, [facility] [place] [facility] [address] [id number] [place] [address]- 5990 Oct, [facility] [place] [facility] [address] [id number] [place] [address]- 4613 Oct, [facility] [place] [facility] [address] [id number] [place] [address]- 4175 Oct, [facility] [place] [facility] [address] [id number] [place] [address]- 9586 Oct, [facility] [place] [facility] [address] [id number] [place] [address]- 6605 Oct, [facility] [place] [facility] [address] [id number] [place] [address]- 6895 Oct, [facility] [place] [facility] [address] [id number] [place] [address]- 1742 Oct, [facility] [place] [facility] [address] [id number] [place] [address]- 6495 Oct, [facility] [place] [facility] [address] [id number] [place] [address]- 0699 Sep, [facility] [place] [facility] [address] [id number] [place] [address]- 7189 Sep, [facility] [place] [facility] [address] [id number] [place] [address]- 6999 Aug, [facility] [place] [facility] [address] [id number] [place] [address]- 0362 Aug, [facility] [place] [facility] [address] [id number] [place] [address]- 2285 Aug, [facility] [place] [facility] [address] [id number] [place] [address]- 0252 Aug, [facility] [place] [facility] [address] [id number] [place] [address]- 3630 Aug, [facility] [place] [facility] [address] [id number] [place] [address]- 9375 Aug, [facility] [place] [facility] [address] [id number] [place] [address]- 5487 Aug, [facility] [place] [facility] [address] [id number] [place] [address]- 6653 Aug, [facility] [place] [facility] [address] [id number] [place] [address]- 9957 Aug, [facility] [place] [facility] [address] [id number] [place] [address]- 7404 Aug, [facility] [place] [facility] [address] [id number] [place] [address]- 5696 Aug, [facility] [place] [facility] [address] [id number] [place] [address]- 4673 Aug, [facility] [place] [facility] [address] [id number] [place] [address]- 4174 July, [facility] [address] [id number] [place] [address]- 6965 July, [facility] [address] [id number] [place] [address]- 5187 July, [facility] [address] [id number] [place] [address]- 4348 July, [facility] [address] [id number] [place] [address]- 7001 July, [facility] [address] [id number] [place] [address]- 7787 July, [facility] [address] [id number] [place] [address] July, [facility] [address] [id number] [place] [address] July, [facility] [address] [id number] [place] [address] Jun, [facility] [address] [id number] [place] [address] Jun, [facility] [address] [id number] [place] [address] May, [facility] [place] [facility] [address] [id number] [place] [address] May, [facility] [place] [facility] [address] [id number] [place] [address] May, [facility] [place] [facility] [address] [id number] [place] [address] May, [facility] [place] [facility] [address] [id number] [place] [address] May, [facility] [place] [facility] [address] [id number] [place] [address] May, [facility] [place] [facility] [address] [id number] [place] [address] May, [facility] [place] [facility] [address] [id number] [place] [address] May, [facility] [place] [facility] [address] [id number] [place] [address] Apr, [facility] [place] [facility] [address] [id number] [place] [address]68 Apr, [facility] [place] [facility] [address] [id number] [place] [address] Apr, [facility] [place] [facility] [address] [id number] [place] [address] Apr, [facility] [place] [facility] [address] [id number] [place] [address] Apr, [facility] [place] [facility] [address] [id number] [place] [address] Apr, [facility] [place] [facility] [address] [id number] [place] [address] Apr, [facility] [place] [facility] [address] [id number] [place] [address] Apr, [facility] [place] [facility] [address] [id number] [place] [address] Mar, [facility] [place] [facility] [address] [id number] [place] [address] Mar, [facility] [place] [facility] [address] [id number] [place] [address]263 Mar, [facility] [place] [facility] [address] [id number] [place] [address]676 Mar, [facility] [place] [facility] [address] [id number] [place] [address] Mar, [facility] [place] [facility] [address] [id number] [place] [address] Mar, [facility] [address] [id number] [place] [address] Mar, [facility] [place] [facility] [address] [id number] [place] [address] Mar, [facility] [address] [id number] [place] [address] Mar, [facility] [address] [id number] [place] [address] Mar, [facility] [address] [id number] [place] [address] Feb, [facility] [address] [id number] [place] [address] Feb, [facility] [address] [id number] [place] [address] Feb, [facility] [address] [id number] [place] [address] Feb, [facility] [address] [id number] [place] [address] Jan, [facility] [address] [id number] [place] [address] Jan, [facility] [place] [facility] [address] [id number] [place] [address] Dec, [facility] [place] [facility] [address] [id number] [place] [address] Dec, [facility] [place] [facility] [address] [id number] [place] [address] Dec, [facility] [place] [facility] [address] [id number] [place] [address] Dec, [facility] [place] [facility] [address] [id number] [place] [address] Dec, [facility] [place] [facility] [address] [id number] [place] [address]- [address] 18 Dec, 2012 [facility] [place] [facility] [address] [id number] [place] [address] Dec, [facility] [place] [facility] [address] [id number] [place] [address]- [address] 14 Dec, 2012 [facility] [place] [facility] [address] [id number] [place] [address] Dec, [facility] [place] [facility] [address] [id number] [place] [address] Dec, [facility] [place] [facility] [address] [id number] [place] [address] Dec, [facility] [place] [facility] [address] [id number] [place] [address] Dec, [facility] [place] [facility] [address] [id number] [address] Dec, [facility] [place] [facility] [address] [id number] [place] [address] 25 Nov, 2012 [facility] [place] [facility] [address] [id number], [place] [address] 24 Nov, 2012 [facility] [place] [facility] [address] [id number], [place] [address] Nov, [facility] [place] [facility] [address] [id number], [place] [address] 89[address] Nov, [facility] [place] [facility] [address] [id number], [place] [address] Nov, [facility] [place] [facility] [address] [id number], [place] [address] 279[address] Oct, [facility] [place] [facility] [address] [id number], [place] [address] Oct, [facility] [place] [facility] [address] [id number], [place] [address] Oct, [facility] [address] [id number] [place] [address] Oct, [facility] [place] [facility] [address] [id number] [place] [address] 68[address] Oct, [facility] [place] [facility] [address] [id number] [place] [address] Oct, [facility] [place] [facility] [address] [id number] [place] [address] 3[address] Oct, [facility] [place] [facility] [address] [id number] [place] [address] Sep, [facility] [place] [facility] [address] [id number] [place] [address] 53[address] Sep, [facility] [address] [id number] [place] [address] 1093 Sep, [facility] [address] [id number] [place] [address] Aug, [facility] [address] [id number] [place] [address] 7767 Aug, [facility] [place] [facility] [address] [id number] [place] [address] 4[address] Aug, [facility] [address] [id number] [place] [address] 8564 Aug, [facility] [place] [facility] [address] [id number] [place] [address] July, [facility] [place] [facility] [address] [id number] [place] [address]369 July, [facility] [place] [facility] [address] [id number] [place] [address]- 9158 July, [facility] [place] [facility] [address] [id number] [place] [address] 0479 July, [facility] [place] [facility] [address] [id number] [place] [address] 20[address] Jun, [facility] [place] [facility] [address] [id number] [place] [address] 9526 Jun, [facility] [place] [facility] [address] [id number] [place] [address] 9256 May, [facility] [place] [facility] [address] [id number] [place] [address] 4806 May, [facility] [place] [facility] [address] [id number] [place] [address] 8977 Apr, [facility] [place] [facility] [address] [id number] [place] [address] 6886 Apr, [facility] [place] [facility] [address] [id number] [place] [address] Feb, [facility] [place] [facility] [address] [id number] [place] [address]- 3[address] Feb, [facility] [place] [facility] [address] [id number] [place] [address] 8175 Feb, [facility] [place] [facility] [address] [id number] [place] [address] 1824 Feb, [facility] [place] [facility] [address] [id number] [place] [address] 9770 Feb, [facility] [place] [facility] [address] [id number] [place] [address]- 7986 Feb, [facility] [place] [facility] [address] [id number] [place] [address] 1023 Jan, [facility] [place] [facility] [address] [id number] [place] [address] 9266 Jan, [facility] [place] [facility] [address] [id number] [place] [address] Jan, [facility] [place] [facility] [address] [id number] [place] [address]- 1542 Jan, [facility] [place] [facility] [address] [id number] [place] [address] 6441 Jan, [facility] [place] [facility] [address] [id number], [place] [address] 3735 Jan, [facility] [place] [facility] [address] [facility] [id number] [place] [address]- 7290 Jan, [facility] [place] [facility] [address] [id number], [place] [address] Jan, [facility] [place] [facility] [address] [id number] [place] [address] 5599 Jan, [facility] [place] [facility] [address] [id number], [place] [address] 98[address] Jan, [facility] [place] [facility] [address] [id number], [place] [address]- 7793 Jan, [facility] [place] [facility] [address] [id number], [place] [address] 9075 Jan, [facility] [place] [facility] [address] [id number], [place] [address]- 0988 Jan, [facility] [place] [facility] [address] [facility] [id number], [place] [address]- 3588 Dec, [facility] [place] [facility] [address] [id number], [place] [address] 1656 Dec, [facility] [place] [facility] [address] [id number], [place] [address]- 3020 Dec, [facility] [place] [facility] [address] [id number], [place] [address] 7701 Dec, [facility] [place] [facility] [address] [facility] [id number], [place] [address] 4038 Dec, [facility] [place] [facility] [address] [facility] [id number], [place] [address]- 8590 Dec, [facility] [place] [facility] [address] [id number] [place] [address] 4282 Dec, [facility] [address] [id number] [place] [address] 3896 Nov, [facility] [address] [id number] [place] [address] 5786 Nov, [facility] [address] [id number] [place] [address] 1108 Oct, [facility] [address] [id number] [place] [address] 8729 Oct, [facility] [address] [id number] [place] [address] 0368 Sep, [facility] [address] [id number] [place] [address] 8623 Sep, [facility] [address] [id number] [place] [address] 4820 Sep, [facility] [address] [id number] [place] [address]- 4284 Sep, [facility] [address] [id number] [place] [address] 8912 July, [facility] [address] [id number] [place] [address] 4793 July, [facility] [address] [id number] [place] [address] 6440 July, [facility] [address] [id number] [place] [address] 8395 Jun, [facility] [address] [id number] [place] [address]- 1019 Jun, [facility] [address] [id number] [place] [address]- 2412 Jun, [facility] [address] [id number] [place] [address]- 3872 Jun, [facility] [address] [id number] [place] [address]- 2493 13 Jun, 2011 [facility] [place] [facility] [address] [id number] [place] [address]- 0345 10 Jun, 2011 [facility] [place] [facility] [address] [id number] [place] [address]- 2690 06 Jun, 2011 [facility] [place] [facility] [address] [id number] [place] [address]- 0726 05 Jun, 2011 [facility] [address] [id number] [place] [address]- 8534 04 Jun, 2011 [facility] [place] [facility] [address] [id number] [place] [address]- 8366 26 May, 2011 [facility] [place] [facility] [address] [id number] [place] [address]- 8119 May, [facility] [address] [id number] [place] [address]- 4341 May, [facility] [place] [facility] [address] [id number] [place] [address]- 1366 May, [facility] [place] [facility] [address] [id number] [place] [address]- 3046 May, [facility] [place] [facility] [address] [id number] [place] [address]- 2787 Apr, [facility] [place] [facility] [address] [id number] [place] [address]- 0267 Mar, [facility] [place] [facility] [address] [id number] [place] [address]- 5726 Mar, [facility] [place] [facility] [address] [id number] [place] [address]- 2198 Feb, [facility] [place] [facility] [address] [id number] [place] [address]- 9845 Feb, [facility] [place] [facility] [address] [id number], [place] [address]- 7371 05 Feb, 2011 [facility] [address] [id number] [place] [address]- 9422 Jan, [facility] [place] [facility] [address] [id number] [place] [address]- 7012 17 Dec, 2010 [facility] [place] [facility] [address] [id number] [place] [address]- 4726 11 Dec, 2010 [facility] [place] [facility] [address] [id number] [place] [address]- 8051 11 Dec, 2010 [facility] [place] [facility] [address] [id number] [place] [address]- 3876 July, [facility] [place] [facility] [address] [id number] [place] [address]- 5342 May, [facility] [place] [facility] [address] [facility] [id number] [place] [address]- 6350 Feb, [facility] [place] [facility] [address] [id number] [place] [address]- 8603 Feb, [facility] [place] [facility] [address] [facility] [id number] [place] [address]- 2074 Feb, [facility] [place] [facility] [address] [facility] [id number] [place] [address]- 3445 Jan, [facility] [place] [facility] [address] [id number], [place] [address]- 4312 Dec, [facility] [place] [facility] [address] [id number], [place] [address]- 0647 Dec, [facility] [place] [facility] [address] [id number] [place] [address]- 9763 Oct, [facility] [place] [facility] [address] [facility] [id number] [place] [address]- 0149 July, [facility] [place] [facility] [address] [facility] [id number] [place] [address]- 7753 18 Apr, 2009 [facility] [place] [facility] [id number], [place] [address]- 7697 Mar, [facility] [id number] [address]26 Feb, [facility] [id number], [place] [address]- 8045 Feb, [facility] [id number] [place] [address]- 7842 Feb, [facility] [id number], [place] [address]- 7398 Feb, [facility] [id number] [place] [address]- 2539 Feb, [facility] [id number] [place] [address]- 3353 Jan, [facility] [id number], [place] [address]- 9122 Jan, [facility] [id number] [address] Dec, [facility] [id number], [place] [address]- 7948 Nov, IMMUNIZATIONS No Known Immunizations SOCIAL HISTORY Never Assessed REASON FOR VISIT Referral PLAN OF CARE VITAL SIGNS MEDICATIONS Unknown [...]
--- OUTSIDE RECORDS SUMMARY | 2018-02-11 11:13 | XMS REPORT ---
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 Name Role Phone TAMMY COPELAND Unavailable PROBLEMS Type Condition ICD9-CM Code GLX47-FD Code Onset Dates Condition Status SNOMED Code Problem GERD with esophagitis K21.0 Active 437836935 Problem Dyspnea on exertion R06.09 Active 60093158 Problem Essential hypertension I10 Active 18978576 Problem Allergic state, subsequent encounter T78.40XD Active 131433876 Problem Arthritis M19.90 Active 0108539 Problem Dyspnea, unspecified R06.00 Active 620068791 Problem Left upper quadrant pain R10.12 Active 260856682 Problem Hypothyroidism (acquired) E03.9 Active 117977147 Problem Chronic superficial gastritis without bleeding K29.30 Active 220769952 Problem Infraspinatus tendon tear, left, subsequent encounter S46.812D Active 7765001 Problem IRVIN (obstructive sleep apnea) G47.33 Active 37548615 Problem Supraspinatus tendon tear, left, subsequent encounter S46.812D Active 593972607 Problem Restless legs syndrome G25.81 Active 694994841 Problem Other specified hypothyroidism E03.8 Active 875345576 Problem Rupture of tendon of right shoulder S46.911A Active 046244404 Problem Bronchitis J40 Active 02086803 Problem Asthma J45.909 Active 338138181 Problem Asthma with acute exacerbation J45.901 Active 009960737 ALLERGIES No Information ENCOUNTERS Encounter Location Date Diagnosis [facility] [id number] [address] Oct, [facility] [id number], [place] [address] Sep, Long-term use of high-risk medication Z79.899 [facility] [id number] [place] [address] 00951- 8064 Sep, Long-term use of high-risk medication Z79.899 [facility] [address] [address]- [address] July, [facility] [id number] [place] [address] 77786- 5334 Jun, [facility] [address] [address]- 5797 May, Asthma J45.909 [facility] [address] 99803- 8484 May, [facility] [address] 57324- 9998 Apr, Pre-op evaluation Z01.818 ; Allergic state, subsequent encounter T78.40XD and BMI 45.0-49.9, adult Z68.42 [facility] [address] [address]- 4118 Mar, [facility] [address] 9[address]- 8352 Mar, [facility] [id number] [place] [address] 14704 -2871 Mar, Cough R05 ; Acute nasopharyngitis J00 and BMI 45.0-49.9, adult Z68.42 [facility] [id number] [place] [address] 60441- 9942 Mar, [facility] [id number] [place] [address] 62089- 6592 Jan, Ganglion cyst of finger of right hand M67.441 [facility] [id number] [place] [address] 75344- 4560 Dec, [facility] [id number] [place] [address] 76236- 5784 Dec, Change in vision H53.9 ; Arthritis M19.90 ; Essential hypertension I10 ; GERD with esophagitis K21.0 ; Hypothyroidism (acquired) E03.9 and Ganglion cyst of joint of finger of left hand M67.442 [facility] [id number] [place] [address] 80447- 9706 15 Nov, 2016 Encounter for immunization Z23 [facility] [address] 97948- 1328 07 Nov, 2016 [facility] [address] 29637- 6789 Sep, [facility] [address] 56038- 9142 Aug, [facility] [address] 37087- 9560 July, Cyst of joint of right hand M25.841 [facility] [address] 30092- 1817 May, [facility] [address] 97934- 1235 May, Fever, unspecified R50.9 and Influenza A J10.[address] [address]- 8963 May, Left shoulder pain, unspecified chronicity M25.512 [facility] [id number] [place] [address] 00010- 7793 Apr, [facility] [address] 55923- 5115 14 Apr, 2016 Infraspinatus tendon tear, left, subsequent encounter S46.812D and Supraspinatus tendon tear, left, subsequent encounter S46.812D [facility] [id number] [place] [address] 75298- 9923 09 Apr, 2016 [facility] [address] 16113- 2788 Mar, Left shoulder pain, unspecified chronicity M25.512 [facility] [address] 81233- 2214 Mar, [facility] [address] 76443- 2356 Mar, Left shoulder pain, unspecified chronicity M25.512 [facility] [address] 94428- 4031 Feb, Chronic superficial gastritis without bleeding K29.30 ; Left upper quadrant pain R10.12 ; Essential hypertension I10 ; Dyspnea on exertion R06.09 and Palpitations R00.2 [facility] [id number] [place] [address] 17185- 1722 Jan, Colon polyps K63.5 [facility] [address] 00158- 6412 Jan, Colon polyps K63.5 [facility] [id number] [place] [address] 36708- 9188 Dec, [facility] [address] 55158 -8497 Dec, GERD with esophagitis K21.0 [facility] [id number] [place] [address] 64892- 9111 Nov, Arthritis pain M19.90 ; Colon polyps K63.5 ; Seasonal allergic rhinitis due to pollen J30.1 and Encounter for immunization Z23 [facility] [id number] [place] [address] 51456- 1627 Nov, [facility] [address] 84479- 5141 Oct, [facility] [id number] [place] [address] 84707- 8295 Sep, [facility] [address] 15389- 5709 July, [facility] [id number] [place] [address] 33774- 3262 July, [facility] [id number] [place] [address] 81229- 5394 July, Asthma with acute exacerbation J45.901 and Bronchitis J40 [facility] [id number] [place] [address] 81166- 0752 Jun, [facility] [id number] [place] [address] 88344- 6199 May, Other specified hypothyroidism E03.8 and 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 [facility] [id number] [place] [address] 57109- 6647 Apr, [facility] [id number] [place] [address] 08396- 7838 Apr, Sacroiliac joint pain M53.3 [facility] [id number] [place] [address] 22159- 1585 Mar, Other specified hypothyroidism E03.8 ; Restless legs syndrome G25.81 ; Asthma with acute exacerbation J45.901 and Bronchitis J40 [facility] [id number] [place] [address] 52425 -1404 Feb, Upper respiratory symptom R09.89 [facility] [id number] [place] [address] 10732- 4337 Feb, Restless leg G25.81 and Asthma J45.909 [facility] [id number] [place] [address] 93213- 2058 Dec, Rupture of tendon of right shoulder S46.911A [facility] [id number] [place] [address] 03740- 3127 Dec, Sacroiliac joint pain M53.3 [facility] [id number] [place] [address] 41664- 2828 30 Nov, 2014 [facility] [id number] [place] [address] 54332- 7675 28 Nov, 2014 Lumbago of lumbosacaral region with sciatica 724.2 and Sacroiliitis 720.2 [facility] [id number] [place] [address] 37960- 1241 Nov, Influenza vaccine administered V04.81 [facility] [id number] [place] [address] 88836- 1016 Nov, [facility] [id number] [place] [address] 48064- 5365 Nov, [facility] [id number] [place] [address] 80163- 4218 18 Nov, 2014 Thyroid function test abnormal 794.5 and Thyroid antibody positive 795.79 [facility] [address] 28156- 0120 16 Nov, 2014 Hypothyroidism 244.9 ; Thyroid antibody positive 795.79 and Right shoulder pain 719.41 [facility] [id number] [place] [address] 69116- 5454 Oct, [facility] [id number] [place] [address] 77350- 9445 Oct, Thyroid function test abnormal 794.5 [facility] [id number] [place] [address] 45395- 9279 14 Oct, 2014 Hypertension 401.9 and Bilateral leg pain 729.5 [facility] [id number] [place] [address] 64038- 6079 Oct, [facility] [id number] [place] [address] 28113- 6944 Oct, Bilateral leg pain 729.5 and Hypertension 401.9 [facility] [id number] [place] [address] 17675- 7053 Sep, Bilateral leg pain 729.5 ; Hypertension 401.9 and Edema 782.3 [facility] [address], [place] [address]- 6359 Aug, Unspecified hereditary and idiopathic peripheral neuropathy 356.9 and Arthritis 716.90 [facility] [address] [facility] [id number], [place] [address]- 3336 Aug, [facility] [address], [place] [address]- 8431 July, [facility] [address] [facility] [id number] [place] [address]- 8713 Jun, [facility] [id number] [address]- 4591 Jun, [facility] [address] [address]- 5496 Jun, [facility] [address] [address]- 0562 May, [facility] [address], [place] [address]- 1263 May, [facility] [address] [address] 3562 May, [facility] [address] 3759 May, [facility] [address], [place] [address]- 7086 16 May, 2014 [facility] [id number], [place] [address]- 1128 16 May, 2014 [facility] [address], [place] [address]- 4978 May, [facility] [id number], [place] [address]- 6076 May, [facility] [address], [place] [address]- 4236 May, [facility] [place] [facility] [address] [id number] [place] [address]- 1358 May, [facility] [place] [facility] [address] [id number] [place] [address]- 1065 May, [facility] [place] [facility] [address] [facility] [id number] [place] [address]- 7696 Apr, 2014 [facility] [place] [facility] [address] [id number] [place] [address]- 1098 Apr, 2014 [facility] [place] [facility] [address] [id number] [place] [address]- 5867 Apr, 2014 [facility] [place] [facility] [address] [facility] [id number] [place] [address]- 4169 Apr, 2014 [facility] [place] [facility] [address] [facility] [id number] [place] [address]- 0607 Apr, 2014 [facility] [place] [facility] [address] [id number] [place] [address]- 3050 Apr, [facility] [place] [facility] [address] [facility] [id number] [place] [address]- 1758 Apr, [facility] [place] [facility] [address] [facility] [id number] [place] [address]- 8051 Apr, [facility] [place] [facility] [address] [facility] [id number], [place] [address]- 1415 Mar, [facility] [place] [facility] [address] [facility] [id number], [place] [address]- 9871 Mar, [facility] [place] [facility] [address] [id number], [place] [address]- 2248 Mar, [facility] [place] [facility] [address] [facility] [id number], [place] [address]- 4988 Mar, [facility] [place] [facility] [address] [facility] [id number], [place] [address]- 4798 Mar, [facility] [place] [facility] [address] [id number] [place] [address]- 1281 Mar, [facility] [place] [facility] [address] [id number] [place] 4016 Feb, [facility] [place] [facility] [address] [id number] [place] 6146 Feb, [facility] [place] [facility] [address] [id number] [place] [address]- 4106 Feb, [facility] [place] [facility] [address] [id number] [place] [address]- 0958 Feb, [facility] [place] [facility] [address] [id number] [place] [address]- 2250 Feb, [facility] [place] [facility] [address] [id number] [place] [address]- 5106 Feb, [facility] [place] [facility] [address] [id number] [place] [address]- 1003 Feb, [facility] [place] [facility] [address] [id number] [place] [address]- 8187 Feb, [facility] [place] [facility] [address] [id number] [place] [address]- 4054 Feb, [facility] [place] [facility] [address] [id number] [place] [address]- 8249 Feb, [facility] [place] [facility] [address] [id number] [place] [address]- 2026 18 Feb, 2014 [facility] [place] [facility] [address] [id number] [place] [address]- 2899 18 Feb, 2014 [facility] [place] [facility] [address] [id number] [place] [address]- 2386 18 Feb, 2014 [facility] [place] [facility] [address] [id number] [place] 0336 15 Feb, 2014 [facility] [place] [facility] [address] [id number] [place] [address]- 5853 Feb, [facility] [place] [facility] [address] [id number] [place] [address]- 9642 Feb, [facility] [place] [facility] [address] [id number] [place] [address]- 5862 Feb, [facility] [place] [facility] [address] [id number] [place] 4588 Feb, [facility] [place] [facility] [address] [id number] [place] [address]- 8096 Feb, [facility] [place] [facility] [address] [id number] [place] [address]- 0313 Feb, [facility] [place] [facility] [address] [id number] [place] [address]- 4073 Feb, [facility] [place] [facility] [address] [id number] [place] [address]- 2144 Feb, [facility] [place] [facility] [address] [id number] [place] [address]- 0961 Feb, [facility] [place] [facility] [address] [id number] [place] [address]- 0182 Jan, [facility] [place] [facility] [address] [id number] [place] [address]- 3871 Jan, [facility] [place] [facility] [address] [id number], [place] [address]- 8380 Jan, [facility] [place] [facility] [address] [id number], [place] [address]- 3066 Jan, [facility] [place] [facility] [address] [id number] [place] [address]- 6192 Jan, [facility] [place] [facility] [address] [id number] [place] [address]- 5255 Jan, [facility] [place] [facility] [address] [id number] [place] [address]- 5036 Jan, [facility] [place] [facility] [address] [id number] [place] [address]- 9280 Jan, 2013 [facility] [place] [facility] [address] [id number] [place] 0764 Jan, [facility] [place] [facility] [address] [id number] [place] [address]- 4044 Dec, [facility] [place] [facility] [address] [id number] [place] [address]- 2201 Dec, [facility] [place] [facility] [address] [id number] [place] [address]- 1078 Dec, [facility] [place] [facility] [address] [id number] [place] [address]- 8348 Dec, [facility] [place] [facility] [address] [id number] [place] [address]- 7913 Dec, [facility] [place] [facility] [address] [id number] [place] [address]- 8712 Dec, [facility] [place] [facility] [address] [id number] [place] [address]- 4554 Dec, [facility] [place] [facility] [address] [id number] [place] [address]- 8924 Dec, [facility] [place] [facility] [address] [facility] [id number] [place] [address]- 3700 Dec, [facility] [place] [facility] [address] [id number] [place] [address]- 0987 Dec, [facility] [place] [facility] [address] [id number] [place] [address]- 2419 30 Nov, 2013 [facility] [place] [facility] [address] [id number] [place] [address]- 2570 30 Nov, 2013 [facility] [place] [facility] [address] [id number] [place] [address]- 8650 Nov, [facility] [place] [facility] [address] [id number] [place] [address]- 1332 Nov, [facility] [place] [facility] [address] [id number] [place] [address]- 8096 Nov, [facility] [place] [facility] [address] [id number] [place] [address]- 6586 Nov, [facility] [place] [facility] [address] [id number] [place] [address]- 1643 Nov, [facility] [place] [facility] [address] [id number] [place] [address]- 1277 Nov, [facility] [place] [facility] [address] [id number] [place] [address]- 4019 Nov, [facility] [place] [facility] [address] [id number] [place] [address]- 3126 Nov, [facility] [place] [facility] [address] [id number] [place] [address]- 5048 Oct, [facility] [place] [facility] [address] [id number] [place] [address]- 8192 Oct, [facility] [place] [facility] [address] [id number] [place] [address]- 8220 Oct, [facility] [place] [facility] [address] [id number] [place] [address]- 7685 Oct, [facility] [place] [facility] [address] [id number] [place] [address]- 7796 Oct, [facility] [place] [facility] [address] [id number] [place] [address]- 2362 Oct, [facility] [place] [facility] [address] [id number] [place] [address]- 6628 Oct, [facility] [place] [facility] [address] [id number] [place] [address]- 5237 Oct, [facility] [place] [facility] [address] [id number] [place] [address]- 6052 Oct, [facility] [place] [facility] [address] [id number] [place] [address]- 8560 Oct, [facility] [place] [facility] [address] [id number] [place] [address]- 7588 Sep, [facility] [place] [facility] [address] [id number] [place] [address]- 2232 Sep, [facility] [place] [facility] [address] [id number] [place] [address]- 6548 Aug, [facility] [place] [facility] [address] [id number] [place] [address]- 5640 Aug, [facility] [place] [facility] [address] [id number] [place] [address]- 1289 Aug, [facility] [place] [facility] [address] [id number] [place] [address]- 0389 Aug, [facility] [place] [facility] [address] [id number] [place] [address]- 7911 Aug, [facility] [place] [facility] [address] [id number] [place] [address]- 2522 Aug, [facility] [place] [facility] [address] [id number] [place] [address]- 6147 Aug, [facility] [place] [facility] [address] [id number] [place] [address]- 5830 Aug, [facility] [place] [facility] [address] [id number] [place] [address]- 4952 Aug, [facility] [place] [facility] [address] [id number] [place] [address]- 8790 Aug, [facility] [place] [facility] [address] [id number] [place] [address]- 6568 Aug, [facility] [place] [facility] [address] [id number] [place] [address]- 5796 Aug, [facility] [place] [facility] [address] [id number] [place] [address]- 9911 July, [facility] [place] [facility] [address] [id number] [place] [address]- 4115 July, [facility] [address] [id number] [place] [address]- 3808 July, [facility] [address] [id number] [place] [address]- 6892 July, [facility] [address] [id number] [place] [address]- 5296 July, [facility] [address] [id number] [place] [address]- 8547 July, [facility] [address] [id number] [place] [address]- 0229 July, [facility] [address] [id number] [place] [address]- 2081 July, [facility] [address] [id number] [place] [address]- 7225 Jun, [facility] [address] [id number] [place] [address] Jun, [facility] [address] [id number] [place] [address] May, [facility] [address] [id number] [place] [address] May, [facility] [place] [facility] [address] [id number] [place] [address] May, [facility] [place] [facility] [address] [id number] [place] [address] 27 May, 2013 [facility] [place] [facility] [address] [id number] [place] [address] 14 May, 2013 [facility] [place] [facility] [address] [id number] [place] [address] 14 May, 2013 [facility] [place] [facility] [address] [id number] [place] [address] May, [facility] [place] [facility] [address] [id number] [place] [address] May, [facility] [place] [facility] [address] [id number] [place] [address] Apr, [facility] [place] [facility] [address] [id number] [place] [address] Apr, [facility] [place] [facility] [address] [id number] [place] [address] Apr, [facility] [place] [facility] [address] [id number] [place] [address] Apr, [facility] [place] [facility] [address] [id number] [place] [address] Apr, [facility] [place] [facility] [address] [id number] [place] [address] Apr, [facility] [place] [facility] [address] [id number] [place] [address] Apr, [facility] [place] [facility] [address] [id number] [place] [address] Apr, [facility] [place] [facility] [address] [id number] [place] [address] Mar, [facility] [place] [facility] [address] [id number] [place] [address] Mar, [facility] [place] [facility] [address] [id number] [place] [address] Mar, [facility] [place] [facility] [address] [id number] [place] [address] Mar, [facility] [place] [facility] [address] [id number] [place] [address] Mar, [facility] [place] [facility] [address] [id number] [place] [address] Mar, [facility] [place] [facility] [address] [id number] [place] [address] Mar, [facility] [address] [id number] [place] [address] Mar, [facility] [place] [facility] [address] [id number] [place] [address] Mar, [facility] [address] [id number] [place] [address] Mar, [facility] [address] [id number] [place] [address] Feb, [facility] [address] [id number] [place] [address] Feb, [facility] [address] [id number] [place] [address] Feb, [facility] [address] [id number] [place] [address] Feb, [facility] [address] [id number] [place] [address] Jan, [facility] [address] [id number] [place] [address] Jan, [facility] [address] [id number] [place] [address] Dec, [facility] [place] [facility] [address] [id number] [place] [address] Dec, [facility] [place] [facility] [address] [id number] [place] [address] Dec, [facility] [place] [facility] [address] [id number] [place] [address] Dec, [facility] [place] [facility] [address] [id number] [place] [address] Dec, [facility] [place] [facility] [address] [id number] [place] [address] Dec, [facility] [place] [facility] [address] [id number] [place] [address] 14 Dec, 2012 [facility] [place] [facility] [address] [id number] [place] [address] 14 Dec, 2012 [facility] [place] [facility] [address] [id number] [place] [address]- [address] Dec, [facility] [place] [facility] [address] [id number] [place] [address]- [address] Dec, [facility] [place] [facility] [address] [id number] [place] [address] Dec, [facility] [place] [facility] [address] [id number] [place] [address]- [address] Dec, [facility] [place] [facility] [address] [id number] [place] [address] Dec, [facility] [place] [facility] [address] [id number], [place] [address] 25 Nov, 2012 [facility] [place] [facility] [address] [id number] [place] [address]- [address] 24 Nov, 2012 [facility] [place] [facility] [address] [id number], [place] [address] Nov, [facility] [place] [facility] [address] [id number], [place] [address] Nov, [facility] [place] [facility] [address] [id number], [place] [address] Nov, [facility] [place] [facility] [address] [id number] [place] [address]- [address] Oct, [facility] [place] [facility] [address] [address] [id number], [place] [address] Oct, [facility] [place] [facility] [address] [id number], [place] [address] Oct, [facility] [place] [facility] [address] [id number], [place] [address] Oct, [facility] [address] [id number] [place] [address] Oct, [facility] [place] [facility] [address] [id number] [place] [address] 37[address] Oct, [facility] [address] [id number] [place] [address] Oct, [facility] [place] [facility] [address] [id number] [place] [address] Sep, [facility] [address] [id number] [place] [address] Sep, [facility] [address] [id number] [place] [address] Sep, [facility] [address] [id number] [place] [address] Aug, [facility] [address] [id number] [place] [address] Aug, [facility] [address] [id number] [place] [address]- [address] Aug, [facility] [address] [id number] [place] [address] Aug, [facility] [address] [id number] [place] [address]- [address]842 July, [facility] [place] [facility] [address] [id number] [place] [address]- [address] July, [facility] [place] [facility] [address] [id number] [place] [address] July, [facility] [place] [facility] [address] [id number] [place] [address] 6643 July, [facility] [place] [facility] [address] [id number] [place] [address] Jun, [facility] [place] [facility] [address] [id number] [place] [address]- 0774 Jun, [facility] [place] [facility] [address] [id number] [place] [address]- 3026 May, [facility] [place] [facility] [address] [id number] [place] [address]106 May, [facility] [place] [facility] [address] [id number] [place] [address]- [address]606 Apr, [facility] [place] [facility] [address] [id number] [place] [address]279 Apr, [facility] [place] [facility] [address] [id number] [place] [address]- 2426 Feb, [facility] [place] [facility] [address] [id number] [place] [address]- 43[address] Feb, [facility] [place] [facility] [address] [id number] [place] [address]- 2033 Feb, [facility] [place] [facility] [address] [id number] [place] [address]- 7826 Feb, [facility] [place] [facility] [address] [id number] [place] [address] Feb, [facility] [place] [facility] [address] [id number] [place] [address] Feb, [facility] [place] [facility] [address] [id number] [place] [address]- 6474 Jan, [facility] [place] [facility] [address] [id number] [place] [address]- 9539 Jan, [facility] [place] [facility] [address] [id number] [place] [address]- 27[address] Jan, [facility] [place] [facility] [address] [id number] [place] [address]- 0071 Jan, [facility] [place] [facility] [address] [id number] [place] [address]- 28[address] Jan, [facility] [place] [facility] [address] [id number] [place] [address]- 6641 Jan, [facility] [place] [facility] [address] [id number], [place] [address] Jan, [facility] [place] [facility] [address] [facility] [id number] [place] [address]- 5[address] Jan, [facility] [place] [facility] [address] [id number], [place] [address] Jan, [facility] [place] [facility] [address] [id number] [place] [address]- 3777 Jan, [facility] [place] [facility] [address] [facility] [id number], [place] [address] Jan, [facility] [place] [facility] [address] [facility] [id number], [place] [address]- 6147 Jan, [facility] [place] [facility] [address] [id number], [place] [address]- 0179 Jan, [facility] [place] [facility] [address] [id number], [place] [address]- 9448 Dec, [facility] [place] [facility] [address] [facility] [id number], [place] [address]- 8[address] Dec, [facility] [place] [facility] [address] [id number], [place] [address] 2763 Dec, [facility] [place] [facility] [address] [id number], [place] [address] 8088 Dec, [facility] [place] [facility] [address] [id number], [place] [address]- 8160 Dec, [facility] [place] [facility] [address] [facility] [id number], [place] [address]- 7905 Dec, [facility] [place] [facility] [address] [facility] [id number], [place] [address]- 2749 Dec, [facility] [place] [facility] [address] [id number] [place] [address]- [address]605 Nov, [facility] [address] [id number] [place] [address] 2309 Nov, [facility] [address] [id number] [place] [address]- [address]56 Oct, [facility] [address] [id number] [place] [address]- 8963 Oct, [facility] [address] [id number] [place] [address]- 5614 Sep, [facility] [address] [id number] [place] [address]- 8202 Sep, [facility] [address] [id number] [place] [address]- 7517 Sep, [facility] [address] [id number] [place] [address]- 3289 Sep, [facility] [address] [id number] [place] [address]- 4534 July, [facility] [address] [id number] [place] [address]- 6862 July, [facility] [address] [id number] [place] [address]- 7881 July, [facility] [address] [id number] [place] [address]- [address]379 30 Jun, 2011 [facility] [address] [id number] [place] [address]- 5837 Jun, [facility] [address] [id number] [place] [address]- 4116 Jun, [facility] [address] [id number] [place] [address]- 4006 Jun, [facility] [address] [id number] [place] [address]- 9689 Jun, [facility] [address] [id number] [place] [address]- [address]30 10 Jun, 2011 [facility] [place] [facility] [address] [id number] [place] [address]- 4710 06 Jun, 2011 [facility] [place] [facility] [address] [id number] [place] [address]- [address] 05 Jun, 2011 [facility] [place] [facility] [address] [id number] [place] [address]- 1262 Jun, [facility] [address] [id number] [place] [address]- 5588 May, [facility] [place] [facility] [address] [id number] [place] [address]- 1626 May, [facility] [address] [id number] [place] [address]- 7902 May, [facility] [address] [id number] [place] [address]- 0637 May, [facility] [place] [facility] [address] [id number] [place] [address]- 1574 May, [facility] [place] [facility] [address] [id number] [place] [address]- 1478 Apr, [facility] [place] [facility] [address] [id number] [place] [address]- 2590 Mar, [facility] [place] [facility] [address] [id number], [place] [address]- 1114 Mar, [facility] [place] [facility] [address] [id number] [place] [address]- 8666 Feb, [facility] [place] [facility] [address] [id number] [place] [address]- 3676 Feb, [facility] [place] [facility] [address] [id number] [place] [address]- 3930 Feb, [facility] [place] [facility] [address] [id number], [place] [address]- 5727 Jan, [facility] [address] [id number] [place] [address]- 9174 17 Dec, 2010 [facility] [place] [facility] [address] [id number] [place] [address]- 9387 Dec, [facility] [place] [facility] [address] [id number] [place] [address]- 0926 Dec, [facility] [place] [facility] [address] [id number] [place] [address]- 5797 16 Jul, 2010 [facility] [address] [id number] [place] [address]- 5671 May, [facility] [place] [facility] [address] [id number] [place] [address]- 7016 Feb, [facility] [address] [facility] [id number] [place] [address]- 2641 Feb, [facility] [place] [facility] [address] [id number] [place] [address]- 1423 Feb, [facility] [place] [facility] [address] [facility] [id number] [place] [address]- 9523 Jan, [facility] [place] [facility] [address] [facility] [id number] [place] [address]- 7993 26 Dec, 2009 [facility] [place] [facility] [address] [id number], [place] [address]- 4144 Dec, [facility] [place] [facility] [address] [id number], [place] [address]- 2862 Oct, [facility] [place] [facility] [address] [id number] [place] [address]- 7526 July, [facility] [place] [facility] [address] [id number] [place] [address]- 2838 18 Apr, 2009 [facility] [place] [facility] [address] [facility] [id number] [place] [address]- 1401 Mar, [facility] [place] [facility] [id number] [address] Feb, [facility] [id number] [address] Feb, [facility] [id number] 3524 Feb, [facility] [id number] 6441 Feb, [facility] [id number] [address]156 Feb, [facility] [id number] [place] [address]- 5771 Jan, [facility] [id number] 9049 Jan, [facility] [id number] [address] Dec, [facility] [id number], [place] [address]- 0399 Nov, IMMUNIZATIONS No Known Immunizations SOCIAL HISTORY Never Assessed REASON FOR VISIT Requests return call PLAN OF CARE VITAL SIGNS MEDICATIONS Medication Instructions Dosage Frequency Start Date End Date Duration Status Ventolin HFA 90 mcg/actuation 2 puffs by Inhalation route 4 times per day PRN keep on file don't fill today Feb, Active RESULTS No Results PROCEDURES No Known [...]
--- OUTSIDE RECORDS SUMMARY | 2018-02-11 11:14 | XMS REPORT ---
Author Author LEENA CHOI [facility] Address [address] [place] [address] Care Team Providers Care Analytical Strategist Name Role Phone LEENA CHOI Unavailable PROBLEMS Type Condition ICD9-CM Code MAU90-FO Code Onset Dates Condition Status SNOMED Code Problem GERD with esophagitis K21.0 Active 863566911 Problem Dyspnea on exertion R06.09 Active 55290658 Problem Essential hypertension I10 Active 76337169 Problem Allergic state, subsequent encounter T78.40XD Active 030974458 Problem Arthritis M19.90 Active 2160307 Problem Dyspnea, unspecified R06.00 Active 205385281 Problem Left upper quadrant pain R10.12 Active 321534473 Problem Hypothyroidism (acquired) E03.9 Active 595002305 Problem Chronic superficial gastritis without bleeding K29.30 Active 116550649 Problem Infraspinatus tendon tear, left, subsequent encounter S46.812D Active 7973099 Problem IRVIN (obstructive sleep apnea) G47.33 Active 52660731 Problem Supraspinatus tendon tear, left, subsequent encounter S46.812D Active 183536594 Problem Restless legs syndrome G25.81 Active 159810172 Problem Other specified hypothyroidism E03.8 Active 730242869 Problem Rupture of tendon of right shoulder S46.911A Active 341975124 Problem Bronchitis J40 Active 61032995 Problem Asthma J45.909 Active 243758265 Problem Asthma with acute exacerbation J45.901 Active 681339387 ALLERGIES Substance Reaction Event Type Date Status Celebrex nausea Drug Allergy Mar, Active ENCOUNTERS Encounter Location Date Diagnosis [facility] [address] [facility] [id number] [address] Aug, [facility] [address] [facility] [id number], [place] [address] July, [facility] [address] [address] Jun, [facility] [address] [address] May, Asthma J45.909 [facility] [address] [address]- [address] May, [place] [address] [address] Apr, Pre-op evaluation Z01.818 ; Allergic state, subsequent encounter T78.40XD and BMI 45.0-49.9, adult Z68.42 [place] [address] [address]- 7606 Mar, [place] [address] [address]- [address] Mar, [facility] [address] [address] Mar, Cough R05 ; Acute nasopharyngitis J00 and BMI 45.0-49.9, adult Z68.42 [place] [address] [address]- 7[address] Mar, [place] [address] [address]- 9631 Jan, Ganglion cyst of finger of right hand M67.441 [place] [address] [address]- [address]37 Dec, [place] [address] [address]- [address]331 Dec, Change in vision H53.9 ; Arthritis M19.90 ; Essential hypertension I10 ; GERD with esophagitis K21.0 ; Hypothyroidism (acquired) E03.9 and Ganglion cyst of joint of finger of left hand M67.442 [place] [address] [address]- 5315 15 Nov, 2016 Encounter for immunization Z23 [facility] [address] [place] [id number] [place] [address] 64767- 3509 Nov, [place] [address] [place] [id number] [place] [address] 23932- 5555 Sep, [facility] [address] [place] [id number] [place] [address] 31462- 2482 Aug, [place] [address] [address]- 5177 July, Cyst of joint of right hand M25.841 [place] [address] 57479- 1012 May, [place] [address] 56158- 5709 May, Fever, unspecified R50.9 and Influenza A J10.1 [place] [address] [place] [id number] [place] [address] 57511- 0813 May, Left shoulder pain, unspecified chronicity M25.512 [place] [address] [place] [id number] [place] [address] 79186- 7339 Apr, [place] [address] [place] [id number] [place] [address] 38445- 2959 14 Apr, 2016 Infraspinatus tendon tear, left, subsequent encounter S46.812D and Supraspinatus tendon tear, left, subsequent encounter S46.812D [place] [address] [place] [id number] [place] [address] 09933- 1627 Apr, [place] [address] 32706- 3906 Mar, Left shoulder pain, unspecified chronicity M25.512 [place] [address] [place] [id number] [place] [address] 23519- 4216 Mar, [facility] [address] [place] [id number] [place] [address] 97998- 1587 Mar, Left shoulder pain, unspecified chronicity M25.512 [facility] [address] [place] [id number] [place] [address] 32661- 6991 Feb, Chronic superficial gastritis without bleeding K29.30 ; Left upper quadrant pain R10.12 ; Essential hypertension I10 ; Dyspnea on exertion R06.09 and Palpitations R00.2 [place] [address] 36419- 4063 Jan, Colon polyps K63.5 [place] [address] 00846- 6653 Jan, Colon polyps K63.5 [place] [address] 92107- 6653 Dec, [facility] [address] [address] Dec, GERD with esophagitis K21.0 [place] [address] [place] [id number] [place] [address] 78562- 9081 Nov, Arthritis pain M19.90 ; Colon polyps K63.5 ; Seasonal allergic rhinitis due to pollen J30.1 and Encounter for immunization Z23 [place] [address] [place] [id number] [place] [address] 67187- 6512 Nov, [place] [address] [place] [id number] [place] [address] 84034- 4656 Oct, [facility] [address] [place] [id number] [place] [address] 03897- 1368 Sep, [place] [address] 09706- 7819 July, [facility] [address] [place] [id number] [place] [address] 08811- 0281 July, [place] [address] 76464- 7453 July, Asthma with acute exacerbation J45.901 and Bronchitis J40 [facility] [address] [place] [id number] [place] [address] 85690- 8001 Jun, [facility] [address] 98039- 2846 May, Other specified hypothyroidism E03.8 and 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 [place] [address] 05150- 3514 Apr, [place] [address] 00132- 0596 Apr, Sacroiliac joint pain M53.3 [place] [address] 66240- 2187 Mar, Other specified hypothyroidism E03.8 ; Restless legs syndrome G25.81 ; Asthma with acute exacerbation J45.901 and Bronchitis J40 [facility] [address] [place] [id number] [place] [address] 99240 -9058 Feb, Upper respiratory symptom R09.89 [place] [address] 51738- 2143 Feb, Restless leg G25.81 and Asthma J45.909 [place] [address] 27189- 7858 Dec, Rupture of tendon of right shoulder S46.911A [place] [address] [place] [id number] [place] [address] 72905- 3850 Dec, Sacroiliac joint pain M53.3 [place] [address] 00275- 7203 30 Nov, 2014 [place] [address] 04213- 3428 Nov, Lumbago of lumbosacaral region with sciatica 724.2 and Sacroiliitis 720.2 [place] [address] [place] [id number] [place] [address] 21710- 5463 Nov, Influenza vaccine administered V04.81 [facility] [address] 98609- 3134 Nov, [facility] [address] 06007- 3628 Nov, [facility] [address] 18504- 7922 Nov, Thyroid function test abnormal 794.5 and Thyroid antibody positive 795.79 [place] [address] 90541- 1659 16 Nov, 2014 Hypothyroidism 244.9 ; Thyroid antibody positive 795.79 and Right shoulder pain 719.41 [place] [address] 07117- 2714 Oct, [place] [address] 09566- 5513 Oct, Thyroid function test abnormal 794.5 [place] [address] 10594- 4284 14 Oct, 2014 Hypertension 401.9 and Bilateral leg pain 729.5 [place] [address] 79063- 9008 Oct, [facility] [address] 81966- 2912 Oct, Bilateral leg pain 729.5 and Hypertension 401.9 [facility] [address] 77383- 8568 Sep, Bilateral leg pain 729.5 ; Hypertension 401.9 and Edema 782.3 [place] [address] [place] [id number] [place] [address] 97906- 5128 11 Aug, 2014 Unspecified hereditary and idiopathic peripheral neuropathy 356.9 and Arthritis 716.90 [place] [address] [place] [address]- 3705 Aug, [facility] [place] [facility] [address] [id number] [place] [address]- 9042 July, [facility] [place] [facility] [address] [id number] [place] [address]- 1217 30 Jun, 2014 [facility] [place] [facility] [address] [id number] [place] [address]- 0266 14 Jun, 2014 [facility] [place] [facility] [address] [id number] [place] [address]- 1008 Jun, [facility] [place] [facility] [address] [id number] [place] [address]- 4647 May, [facility] [place] [facility] [address] [id number] [place] [address]- 3958 May, [facility] [place] [facility] [address] [id number] [place] [address]- 0959 May, [facility] [place] [facility] [address] [id number] [place] [address]- 4909 24 May, 2014 [facility] [place] [facility] [address] [id number] [place] [address]- 3707 16 May, 2014 [facility] [place] [facility] [address] [id number] [place] [address]- 6832 16 May, 2014 [facility] [place] [facility] [address] [id number] [place] [address]- 1693 10 May, 2014 [facility] [place] [facility] [address] [id number] [place] [address]- 6084 10 May, 2014 [facility] [place] [facility] [address] [id number] [place] [address]- 4172 04 May, 2014 [facility] [place] [facility] [address] [id number] [place] [address]- 9071 May, [facility] [place] [facility] [address] [id number] [place] [address]- 0693 May, [facility] [place] [facility] [address] [id number] [place] [address]- 1940 Apr, 2014 [facility] [place] [facility] [address] [id number] [place] [address]- 9626 Apr, 2014 [facility] [place] [facility] [address] [id number] [place] [address]- 2300 Apr, 2014 [facility] [place] [facility] [address] [id number] [place] [address]- 2421 Apr, 2014 [facility] [place] [facility] [address] [id number] [place] [address]- 8415 Apr, [facility] [place] [facility] [address] [id number] [place] [address]- 0285 Apr, 2014 [facility] [place] [facility] [address] [id number] [place] [address]- 3028 Apr, [facility] [place] [facility] [address] [id number] [place] [address]- 0303 Apr, [facility] [place] [facility] [address] [id number] [place] [address]- 3050 Mar, [facility] [place] [facility] [address] [id number] [place] [address]- 4309 Mar, [facility] [place] [facility] [address] [id number] [place] [address]- 5957 Mar, [facility] [place] [facility] [address] [id number] [place] [address]- 3608 Mar, [facility] [place] [facility] [address] [id number] [place] [address]- 8592 Mar, [facility] [place] [facility] [address] [id number] [place] [address]- 0227 Mar, [facility] [place] [facility] [address] [id number] [place] [address]- 0130 Feb, [facility] [place] [facility] [address] [id number] [place] [address]- 9248 29 Feb, 2014 [facility] [place] [facility] [address] [id number] [place] [address]- 2026 Feb, [facility] [place] [facility] [address] [id number] [place] [address]- 5796 Feb, [facility] [place] [facility] [address] [id number] [place] [address]- 5036 Feb, [facility] [place] [facility] [address] [id number] [place] [address]- 8409 Feb, [facility] [place] [facility] [address] [id number] [place] [address]- 7488 Feb, [facility] [place] [facility] [address] [id number] [place] [address]- 7354 Feb, [facility] [place] [facility] [address] [id number] [place] [address]- 2983 Feb, [facility] [place] [facility] [address] [id number] [place] [address]- 3660 Feb, [facility] [place] [facility] [address] [id number] [place] [address]- 4017 Feb, [facility] [place] [facility] [address] [id number] [place] [address]- 0464 Feb, [facility] [place] [facility] [address] [id number] [place] [address]- 1839 18 Feb, 2014 [facility] [place] [facility] [address] [id number] [place] [address]- 0044 15 Feb, 2014 [facility] [place] [facility] [address] [id number] [place] [address]- 6276 15 Feb, 2014 [facility] [place] [facility] [address] [id number] [place] [address]- 2886 10 Feb, 2014 [facility] [place] [facility] [address] [id number] [place] [address]- 9583 10 Feb, 2014 [facility] [place] [facility] [address] [id number] [place] [address]- 6612 Feb, [facility] [place] [facility] [address] [id number] [place] [address]- 2008 Feb, [facility] [place] [facility] [address] [id number] [place] [address]- 8307 Feb, [facility] [place] [facility] [address] [id number] [place] [address]- 6098 Feb, [facility] [place] [facility] [address] [id number] [place] [address]- 8096 Feb, [facility] [place] [facility] [address] [id number] [place] [address]- 7030 Feb, [facility] [place] [facility] [address] [id number] [place] [address]- 2548 Jan, [facility] [place] [facility] [address] [id number] [place] [address]- 3063 Jan, [facility] [place] [facility] [address] [id number] [place] [address]- 7572 Jan, [facility] [place] [facility] [address] [id number] [place] [address]- 5218 Jan, [facility] [place] [facility] [address] [id number] [place] [address]- 8636 Jan, [facility] [place] [facility] [address] [id number] [place] [address]- 1464 Jan, [facility] [place] [facility] [address] [id number] [place] [address]- 8188 Jan, [facility] [place] [facility] [address] [id number] [place] [address]- 8569 Jan, [facility] [place] [facility] [address] [id number] [place] [address]- 3979 Jan, [facility] [place] [facility] [address] [id number], [place] [address]- 4882 Dec, [facility] [place] [facility] [address] [id number] [place] [address]- 1409 Dec, [facility] [place] [facility] [address] [id number] [place] [address]- 9410 Dec, [facility] [place] [facility] [address] [id number] [place] [address]- 5075 Dec, [facility] [place] [facility] [address] [id number] [place] [address]- 1159 Dec, [facility] [place] [facility] [address] [id number] [place] [address]- 0954 Dec, [facility] [place] [facility] [address] [id number] [place] [address]- 4876 Dec, [facility] [place] [facility] [address] [id number] [place] [address]- 7981 Dec, [facility] [place] [facility] [address] [id number] [place] [address]- 4396 Dec, [facility] [place] [facility] [address] [id number] [place] [address]- 7239 Dec, [facility] [place] [facility] [address] [id number] [place] [address]- 3475 30 Nov, 2013 [facility] [place] [facility] [address] [id number], [place] [address]- 4988 30 Nov, 2013 [facility] [place] [facility] [address] [id number], [place] [address]- 8012 12 Nov, 2013 [facility] [place] [facility] [address] [id number] [place] [address]- 9846 12 Nov, 2013 [facility] [place] [facility] [address] [id number] [place] [address]- 7934 Nov, 2013 [facility] [place] [facility] [address] [id number] [place] [address]- 6549 Nov, 2013 [facility] [place] [facility] [address] [id number] [place] [address]- 0727 Nov, [facility] [place] [facility] [address] [id number] [place] [address]- 0426 Nov, [facility] [place] [facility] [address] [id number] [place] [address]- 0100 Nov, [facility] [place] [facility] [address] [id number] [place] [address]- 3221 Nov, [facility] [place] [facility] [address] [id number] [place] [address]- 3043 Oct, [facility] [place] [facility] [address] [id number] [place] [address]- 5796 Oct, [facility] [place] [facility] [address] [id number] [place] [address]- 6554 Oct, [facility] [place] [facility] [address] [id number] [place] [address]- 8359 Oct, [facility] [place] [facility] [address] [id number] [place] [address]- 0520 Oct, [facility] [place] [facility] [address] [id number] [place] [address]- 2069 Oct, [facility] [place] [facility] [address] [id number] [place] [address]- 4902 Oct, [facility] [place] [facility] [address] [id number] [place] [address]- 9694 Oct, [facility] [place] [facility] [address] [id number] [place] [address]- 1031 Oct, [facility] [place] [facility] [address] [id number] [place] [address]- 9046 Oct, [facility] [place] [facility] [address] [id number] [place] [address]- 5048 Sep, [facility] [place] [facility] [address] [id number] [place] [address]- 3913 Sep, [facility] [place] [facility] [address] [id number] [place] [address]- 5591 Aug, [facility] [place] [facility] [address] [id number] [place] [address]- 0852 Aug, [facility] [place] [facility] [address] [id number] [place] [address]- 3474 Aug, [facility] [place] [facility] [address] [id number] [place] [address]- 3029 Aug, [facility] [place] [facility] [address] [id number] [place] [address]- 1350 Aug, [facility] [place] [facility] [address] [id number] [place] [address]- 6381 Aug, [facility] [place] [facility] [address] [id number] [place] [address]- 7891 Aug, [facility] [place] [facility] [address] [id number] [place] [address]- 6647 Aug, [facility] [place] [facility] [address] [id number] [place] [address]- 4527 Aug, [facility] [place] [facility] [address] [id number] [place] [address]- 7995 Aug, [facility] [place] [facility] [address] [id number] [place] [address]- 9644 Aug, [facility] [place] [facility] [address] [id number] [place] [address]- 7479 Aug, [facility] [place] [facility] [address] [id number] [place] [address]- 6664 July, [facility] [place] [facility] [address] [id number] [place] [address]- 7283 July, [facility] [place] [facility] [address] [id number] [place] [address]- 2558 July, [facility] [place] [facility] [address] [id number] [place] [address]- 6570 July, [facility] [place] [facility] [address] [id number] [place] [address]- 5228 July, [facility] [place] [facility] [address] [id number] [place] [address]- 7300 July, [facility] [place] [facility] [address] [id number] [place] [address]- 5444 July, [facility] [place] [facility] [address] [id number] [place] [address]- 2062 July, [facility] [place] [facility] [address] [id number] [place] [address]- 0305 Jun, [facility] [place] [facility] [address] [id number] [place] [address]- 0912 Jun, [facility] [place] [facility] [address] [id number] [place] [address]- 1811 May, [facility] [place] [facility] [address] [id number] [place] [address]- 3634 May, [facility] [place] [facility] [address] [id number] [place] [address]- 6716 May, [facility] [place] [facility] [address] [id number] [place] [address]- 4515 May, [facility] [place] [facility] [address] [id number] [place] [address]- 2192 May, [facility] [place] [facility] [address] [id number] [place] [address]- 1224 May, [facility] [place] [facility] [address] [id number] [place] [address] May, [facility] [place] [facility] [address] [id number] [place] [address] May, [facility] [place] [facility] [address] [id number] [place] [address] Apr, [facility] [place] [facility] [address] [id number] [place] [address] Apr, [facility] [place] [facility] [address] [id number] [place] [address] Apr, [facility] [place] [facility] [address] [id number] [place] [address] Apr, [facility] [place] [facility] [address] [id number] [place] [address] Apr, [facility] [place] [facility] [address] [id number] [place] [address] Apr, [facility] [place] [facility] [address] [id number] [place] [address] Apr, [facility] [place] [facility] [address] [id number] [place] [address] Apr, [facility] [place] [facility] [address] [id number] [place] [address] Mar, [facility] [place] [facility] [address] [id number] [place] [address] Mar, [facility] [place] [facility] [address] [id number] [place] [address] Mar, [facility] [place] [facility] [address] [id number], [place] [address] Mar, [facility] [place] [facility] [address] [id number], [place] [address] Mar, [facility] [place] [facility] [address] [id number] [place] [address] Mar, [facility] [place] [facility] [address] [id number] [place] [address] Mar, [facility] [place] [facility] [address] [id number], [place] [address] Mar, [facility] [place] [facility] [address] [id number], [place] [address] Mar, [facility] [place] [facility] [address] [id number] [place] [address] Mar, [facility] [place] [facility] [address] [id number] [place] [address] Feb, [facility] [place] [facility] [address] [id number] [place] [address] Feb, [facility] [place] [facility] [address] [id number] [place] [address] Feb, [facility] [place] [facility] [address] [id number] [place] [address] Feb, [facility] [place] [facility] [address] [id number] [place] [address] Jan, [facility] [place] [facility] [address] [facility] [id number] [place] [address] Jan, [facility] [place] [facility] [address] [id number] [place] [address] 30 Dec, 2012 [facility] [place] [facility] [address] [facility] [id number] [place] [address] 30 Dec, 2012 [facility] [place] [facility] [address] [facility] [id number] [place] [address] Dec, [facility] [place] [facility] [address] [id number], [place] [address] 28 Dec, 2012 [facility] [place] [facility] [address] [id number], [place] [address] 18 Dec, 2012 [facility] [place] [facility] [address] [id number] [place] [address] 18 Dec, 2012 [facility] [place] [facility] [address] [facility] [id number], [place] [address] 14 Dec, 2012 [facility] [place] [facility] [address] [facility] [id number] [place] [address]- [address] 14 Dec, 2012 [facility] [place] [facility] [address] [id number] [place] [address] Dec, [facility] [place] [facility] [address] [id number] [place] [address] Dec, [facility] [place] [facility] [address] [id number] [place] [address] Dec, [facility] [place] [facility] [address] [id number] [place] [address] Dec, [facility] [place] [facility] [address] [id number] [place] [address] Dec, [facility] [place] [facility] [address] [id number] [place] [address] Nov, [facility] [place] [facility] [address] [id number] [place] [address]- [address] 24 Nov, 2012 [facility] [place] [facility] [address] [id number] [place] [address] Nov, [facility] [place] [facility] [address] [id number] [place] [address] Nov, [facility] [place] [facility] [address] [id number] [place] [address]- [address] Nov, [facility] [place] [facility] [address] [id number] [place] [address] Oct, [facility] [place] [facility] [address] [id number] [place] [address]65 Oct, [facility] [place] [facility] [address] [id number] [place] [address] Oct, [facility] [place] [facility] [address] [id number] [place] [address]40 Oct, [facility] [place] [facility] [address] [id number] [place] [address]161 Oct, [facility] [place] [facility] [address] [id number] [place] [address] Oct, [facility] [address] [id number] [place] [address]- [address] Oct, [facility] [place] [facility] [address] [id number] [place] [address]- [address] Sep, [facility] [place] [facility] [address] [id number] [place] [address] Sep, [facility] [place] [facility] [address] [id number] [place] [address] Sep, [facility] [place] [facility] [address] [id number] [place] [address] Aug, [facility] [place] [facility] [address] [id number] [place] [address] Aug, [facility] [place] [facility] [address] [id number] [place] [address] Aug, [facility] [place] [facility] [address] [id number] [place] [address] Aug, [facility] [place] [facility] [address] [id number] [place] [address] July, [facility] [place] [facility] [address] [id number] [place] [address] July, [facility] [place] [facility] [address] [id number] [place] [address] July, [facility] [place] [facility] [address] [id number], [place] [address] July, [facility] [place] [facility] [address] [id number] [place] [address] Jun, [facility] [place] [facility] [address] [id number] [place] [address] Jun, [facility] [place] [facility] [address] [id number] [place] [address] May, [facility] [place] [facility] [address] [id number] [place] [address] May, [facility] [address] [id number] [place] [address] Apr, [facility] [place] [facility] [address] [id number] [place] [address] Apr, [facility] [place] [facility] [address] [id number] [place] [address] Feb, [facility] [place] [facility] [address] [id number] [place] [address] 2546 Feb, [facility] [place] [facility] [address] [id number] [place] [address] 39[address] Feb, [facility] [place] [facility] [address] [id number] [place] [address] Feb, [facility] [place] [facility] [address] [id number] [place] [address] Feb, [facility] [place] [facility] [address] [id number] [place] [address] Feb, [facility] [place] [facility] [address] [id number] [place] [address] Jan, [facility] [place] [facility] [address] [id number] [place] [address]- [address] Jan, [facility] [place] [facility] [address] [id number] [place] [address] 2546 Jan, [facility] [place] [facility] [address] [id number] [place] [address] 2546 Jan, [facility] [place] [facility] [address] [id number] [place] [address]209 Jan, [facility] [place] [facility] [address] [id number] [place] [address]- [address]46 Jan, [facility] [place] [facility] [address] [id number] [place] [address]199 Jan, [facility] [place] [facility] [address] [id number] [place] [address]- [address]256 Jan, [facility] [place] [facility] [address] [id number] [place] [address]993 Jan, [facility] [place] [facility] [address] [id number] [place] [address] 7[address] Jan, [facility] [place] [facility] [address] [id number] [place] [address], [place] [address] Jan, [facility] [place] [facility] [address] [id number] [place] [address] Jan, [facility] [place] [facility] [address] [id number] [place] [address] Jan, [facility] [place] [facility] [address] [facility] [id number] [place] [address] Dec, [facility] [place] [facility] [address] [id number] [place] [address] 4169 Dec, [facility] [place] [facility] [address] [id number] [place] [address] 7680 Dec, [facility] [place] [facility] [address] [facility] [id number] [place] [address] Dec, [facility] [place] [facility] [address] [facility] [id number] [place] [address] Dec, [facility] [place] [facility] [address] [id number], [place] [address] Dec, [facility] [place] [facility] [address] [id number] [place] [address]71 Dec, [facility] [place] [facility] [address] [id number] [place] [address] Nov, [facility] [place] [facility] [address] [id number], [place] [address] Nov, [facility] [place] [facility] [address] [id number], [place] [address] Oct, [facility] [place] [facility] [address] [id number] [place] [address] Oct, [facility] [place] [facility] [address] [id number] [place] [address] Sep, [facility] [place] [facility] [address] [id number] [place] [address]34 Sep, [facility] [place] [facility] [address] [id number] [place] [address] Sep, [facility] [place] [facility] [address] [id number] [place] [address] Sep, [facility] [place] [facility] [address] [id number] [place] [address] 8078 July, [facility] [place] [facility] [address] [id number] [place] [address]- 2802 July, [facility] [place] [facility] [address] [id number] [place] [address] 58[address] July, [facility] [place] [facility] [address] [id number] [place] [address]- 5526 Jun, [facility] [place] [facility] [address] [id number] [place] [address]- 17[address] Jun, [facility] [place] [facility] [address] [id number] [place] [address] 2340 Jun, [facility] [place] [facility] [address] [id number] [place] [address]- 3254 16 Jun, 2011 [facility] [place] [facility] [address] [id number] [place] [address]- [address] 13 Jun, 2011 [facility] [place] [facility] [address] [id number] [place] [address] 9030 Jun, [facility] [place] [facility] [address] [id number] [place] [address]- [address]21 Jun, [facility] [place] [facility] [address] [id number] [place] [address]- [address]46 05 Jun, 2011 [facility] [address] [id number] [place] [address] Jun, [facility] [place] [facility] [address] [id number] [place] [address] 2546 May, [facility] [address] [id number] [place] [address]- [address]306 May, [facility] [place] [facility] [address] [id number] [place] [address]- 5134 May, [facility] [address] [id number] [place] [address] 2546 May, [facility] [address] [id number] [place] [address]- 3076 May, [facility] [address] [id number] [place] [address]- 4207 Apr, [facility] [address] [id number] [place] [address]- [address]00 Mar, [facility] [address] [id number] [place] [address]- [address]206 Mar, [facility] [address] [id number] [place] [address]- 9040 Feb, [facility] [address] [id number] [place] [address]- 2546 Feb, [facility] [address] [id number] [place] [address]- [address]76 Feb, [facility] [place] [facility] [address] [id number] [place] [address]- 2546 Jan, [facility] [place] [facility] [address] [id number] [place] [address]- 2546 Dec, [facility] [place] [facility] [address] [id number] [place] [address]- 4785 Dec, [facility] [address] [id number] [place] [address]- 9520 11 Dec, 2010 [facility] [place] [facility] [address] [id number] [place] [address]- 5020 16 Jul, 2010 [facility] [place] [facility] [address] [id number] [place] [address] 18 May, 2010 [facility] [place] [facility] [address] [id number] [place] [address]- 9169 22 Feb, 2010 [facility] [place] [facility] [address] [id number] [place] [address]- 0858 15 Feb, 2010 [facility] [place] [facility] [address] [id number] [place] [address]- [address]12 09 Feb, 2010 [facility] [place] [facility] [address] [id number] [place] [address]- 6169 Jan, [facility] [place] [facility] [address] [id number] [place] [address]- 5164 26 Dec, 2009 [facility] [place] [facility] [address] [id number] [place] [address]- 2453 13 Dec, 2009 [facility] [place] [facility] [address] [id number], [place] [address]- [address] 13 Oct, 2009 [facility] [place] [facility] [address] [id number], [place] [address]- [address] July, [facility] [place] [facility] [address] [id number], [place] [address]- [address] 18 Apr, 2009 [facility] [place] [facility] [address] [id number] [place] [address]- 2520 Mar, [facility] [place] [facility] [address] [id number], [place] [address]- [address] Feb, [facility] [place] [facility] [address] [id number] [place] [address]- 6265 Feb, [facility] [place] [facility] [address] [facility] [id number], [place] [address] 2546 Feb, [facility] [address] [id number], [place] [address] Feb, [facility] [address] [id number], [place] [address] Feb, [facility] [id number], [place] [address] Jan, [facility] [id number], [place] [address]- 115[address] Jan, [facility] [id number], [place] [address]- [address] Dec, [facility] [address] [id number], [place] [address]- [address] Nov, IMMUNIZATIONS Vaccine Route Administration Date Status DEXAMETHASONE 4MG/ML (PER 1 MG) IM Intramuscular Mar 31, 2017 Administered DEPO MEDROL 40 MG/ML IM Intramuscular Mar 31, 2017 Administered SOCIAL HISTORY Never Assessed REASON FOR VISIT Headache, cough, shortness of breath, sore throat, fever started about 3-4 days ago JStrasserRN PLAN OF CARE Activity Details Follow Up prn Reason: VITAL SIGNS Height 70 in 2017-03-31 Weight 322.2 lbs 2017-03-31 Temperature 99.3 degrees Fahrenheit 2017-03-31 Heart Rate 88 bpm 2017-03-31 Respiratory Rate 22 2017-03-31 Oximetry 95 % 2017-03-31 BMI 46.23 kg/m2 2017-03-31 Blood pressure systolic 194 mmHg 2017-03-31 Blood pressure diastolic 100 mmHg 2017-03-31 MEDICATIONS Medication Instructions Dosage Frequency Start Date End Date Duration Status Aspirin 81 mg 1 tablet by Oral route 1 time per day Feb, Active Gabapentin 300 MG Orally 1 at HS TAKE ONE CAPSULE BY MOUTH DAILY AT NIGHT 30 Active Omeprazole 20 mg Orally 2 times a day 1 capsule 12h 30 Active Vitamin D3 1,000 unit 2 capsule by Oral route 1 time per day Dec, Active Norvasc 10 MG TAKE ONE TABLET BY MOUTH DAILY 30 Active Fish Oil 1000 MG Orally Twice a day 1 capsule 12h Active Guaifenesin 400 MG Orally every 4 hrs 1 tablet as needed 4h Mar, Mar, 10 days Active Advair Diskus 250-50 MCG/DOSE Inhalation Twice a day 1 puffs by Inhalation route 2 times per day 12h 30 days Not-Taking Quinapril HCl 20 MG TAKE THREE TABLETS BY MOUTH DAILY 30 Active NyQuil 60-7.5-30-1000 MG/30ML Active Hydrochlorothiazide 50 MG TAKE ONE TABLET BY MOUTH DAILY 30 Active Fluticasone Propionate 50 MCG/ACT USE ONE SPRAY IN EACH NOSTRIL TWICE DAILY 30 Not-Taking Requip 0.5 MG TAKE ONE TABLET BY MOUTH ONCE DAILY 1 TO 3 HOURS BEFORE BEDTIME 30 Not-Taking Meloxicam 15 mg Orally Once a day 1 tablet 24h Jun, 90 days Active MiraLax 17 gram/dose take 17 g mixed with 8 oz. water or juice by Oral route 1 time per day Dec, Active Pantoprazole Sodium 20 mg Orally 2 times a day 1 tablet 12h Dec, 30 day(s) Not-Taking Levothyroxine Sodium 200 MCG TAKE ONE TABLET BY MOUTH DAILY Active Ventolin HFA 90 mcg/actuation 2 puffs by Inhalation route 4 times per day PRN keep on file don't fill today Feb, Not-Taking RESULTS Name Result Date Reference Range INFLUENZA A & B (IN HOUSE) 2017-03-31 INFLUENZA A negative INFLUENZA B negative Control + Lot # [id number] Exp date 2019-06-19 PROCEDURES Procedure Date Ordered Result Body Site MEASURE BLOOD OXYGEN LEVEL Mar 31, 2017 INFLUENZA ASSAY W/OPTIC Mar 31, 2017 THER/PROPH/DIAG INJ, SC/IM Mar 31, 2017 DEXAMETHASONE 4MG/ML (PER 1 MG) Mar 31, 2017 [facility] VISIT ESTABLISHED PATIENT Mar 31, 2017 DEPO MEDROL 40 MG/ML Mar 31, 2017 INSTRUCTIONS MEDICATIONS ADMINISTERED No Known [...] Medical History Endocrine disorder- pre-diabetes Medical History Devanintestinal disorder fatty liver disease Medical History HIDA [...]
[2018-02-11] MEDS ORDERED: RT-ALBUTEROL/IPRATROPIUM 3 ML (DUONEB) VIAL ONE (11:15)
--- OUTSIDE RECORDS SUMMARY | 2018-02-11 11:15 | XMS REPORT ---
Author [facility] Address [address] [place] [address] Care Team Providers Care Equity Research Analyst Name Role Phone PEPE BANDAR Unavailable PROBLEMS Type Condition ICD9-CM Code QKG52-ZH Code Onset Dates Condition Status SNOMED Code Problem GERD with esophagitis K21.0 Active 449414997 Problem Dyspnea on exertion R06.09 Active 46326713 Problem Essential hypertension I10 Active 41065015 Problem Allergic state, subsequent encounter T78.40XD Active 045247393 Problem Arthritis M19.90 Active 3843058 Problem Dyspnea, unspecified R06.00 Active 479400460 Problem Left upper quadrant pain R10.12 Active 355107529 Problem Hypothyroidism (acquired) E03.9 Active 851794036 Problem Chronic superficial gastritis without bleeding K29.30 Active 097862547 Problem Infraspinatus tendon tear, left, subsequent encounter S46.812D Active 1455291 Problem IRVIN (obstructive sleep apnea) G47.33 Active 40453403 Problem Supraspinatus tendon tear, left, subsequent encounter S46.812D Active 532845833 Problem Restless legs syndrome G25.81 Active 495663182 Problem Other specified hypothyroidism E03.8 Active 855937186 Problem Rupture of tendon of right shoulder S46.911A Active 669363278 Problem Bronchitis J40 Active 63161333 Problem Asthma J45.909 Active 743116345 Problem Asthma with acute exacerbation J45.901 Active 643745495 ALLERGIES No Information ENCOUNTERS Encounter Location Date Diagnosis [facility] [address] [facility]NOTE [facility]] [id number], [place] [address] Aug, [facility] [address] [id number], [place] [address] July, [facility] [address] [id number], [place] [address] Jun, [facility] [id number] [place] [address] 45256- 7020 May, Asthma J45.909 [place] [address] [address]67- 5269 May, [place] [address] 61403- 9055 Apr, Pre-op evaluation Z01.818 ; Allergic state, subsequent encounter T78.40XD and BMI 45.0-49.9, adult Z68.42 [place] [address] 70553- 9601 Mar, [place] [address] 01710- 9744 Mar, [facility] [address] [address] -[address] Mar, Cough R05 ; Acute nasopharyngitis J00 and BMI 45.0-49.9, adult Z68.42 [place] [address] 15410- 9723 Mar, [place] [address] 58123- 8785 Jan, Ganglion cyst of finger of right hand M67.441 [place] [address] 13418- 8359 Dec, [place] [address] 64596- 2346 10 Dec, 2016 Change in vision H53.9 ; Arthritis M19.90 ; Essential hypertension I10 ; GERD with esophagitis K21.0 ; Hypothyroidism (acquired) E03.9 and Ganglion cyst of joint of finger of left hand M67.442 [place] [address] 82930- 3412 15 Nov, 2016 Encounter for immunization Z23 [place] [id number] [place] [address] 10765- 6212 Nov, [facility] [id number] [place] [address] 37213- 7531 Sep, [facility] [id number] [place] [address] 27155- 5197 Aug, [place] [id number] [place] [address] 73666- 8856 July, Cyst of joint of right hand M25.841 [place] [id number] [place] [address] 86683- 4571 May, [place] [id number] [place] [address] 13381- 1540 May, Fever, unspecified R50.9 and Influenza A J10.1 [place] [id number] [place] [address] 23122- 0914 May, Left shoulder pain, unspecified chronicity M25.512 [place] [id number] [place] [address] 30593- 4946 Apr, [place] [id number] [place] [address] 61752- 9405 Apr, Infraspinatus tendon tear, left, subsequent encounter S46.812D and Supraspinatus tendon tear, left, subsequent encounter S46.812D [place] [id number] [place] [address] 68491- 1728 Apr, [facility] [id number] [place] [address] 65670- 6591 Mar, Left shoulder pain, unspecified chronicity M25.512 [facility] [id number] [place] [address] 40101- 0568 Mar, [facility] [id number] [place] [address] 62251- 6488 Mar, Left shoulder pain, unspecified chronicity M25.512 [facility] [id number] [place] [address] 97187- 2066 Feb, Chronic superficial gastritis without bleeding K29.30 ; Left upper quadrant pain R10.12 ; Essential hypertension I10 ; Dyspnea on exertion R06.09 and Palpitations R00.2 [facility] [id number] [place] [address] 90334- 6181 Jan, Colon polyps K63.5 [facility] [address] 59742- 5949 Jan, Colon polyps K63.5 [place] [address] 07950- 4081 Dec, [facility] [id number] [place] [address] 44193 -8779 Dec, GERD with esophagitis K21.0 [place] [address] 81523- 3139 Nov, Arthritis pain M19.90 ; Colon polyps K63.5 ; Seasonal allergic rhinitis due to pollen J30.1 and Encounter for immunization Z23 [place] [id number] [place] [address] 31720- 6857 Nov, [place] [id number] [place] [address] 02310- 9180 Oct, [place] [id number] [place] [address] 26749- 4570 Sep, [place] [id number] [place] [address] 80346- 0964 July, [place] [address] 25584- 5834 July, [place] [id number] [place] [address] 66953- 9912 July, Asthma with acute exacerbation J45.901 and Bronchitis J40 [place] [id number] [place] [address] 22380- 9294 Jun, [facility] [address] 55166- 3356 May, Other specified hypothyroidism E03.8 and 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 [place] [address] 24025- 5351 Apr, [place] [address] 42554- 6392 Apr, Sacroiliac joint pain M53.3 [place] [address] 99659- 0819 Mar, Other specified hypothyroidism E03.8 ; Restless legs syndrome G25.81 ; Asthma with acute exacerbation J45.901 and Bronchitis J40 [facility] [address] 95137 -7939 Feb, Upper respiratory symptom R09.89 [place] [address] 73715- 9847 Feb, Restless leg G25.81 and Asthma J45.909 [place] [id number] [place] [address] 67438- 8661 Dec, Rupture of tendon of right shoulder S46.911A [place] [id number] [place] [address] 21334- 8890 Dec, Sacroiliac joint pain M53.3 [place] [id number] [place] [address] 27298- 6718 Nov, [place] [address] 94396- 3870 Nov, Lumbago of lumbosacaral region with sciatica 724.2 and Sacroiliitis 720.2 [place] [address] 79834- 0463 Nov, Influenza vaccine administered V04.81 [facility] [id number] [place] [address] 41860- 8537 Nov, [facility] [id number] [place] [address] 29893- 4865 Nov, [facility] [id number] [place] [address] 70108- 9967 Nov, Thyroid function test abnormal 794.5 and Thyroid antibody positive 795.79 [place] [id number] [place] [address] 05195- 7981 16 Nov, 2014 Hypothyroidism 244.9 ; Thyroid antibody positive 795.79 and Right shoulder pain 719.41 [place] [id number] [place] [address] 72163- 9610 Oct, [place] [address] 26158- 0329 Oct, Thyroid function test abnormal 794.5 [place] [id number] [place] [address] 29355- 5498 14 Oct, 2014 Hypertension 401.9 and Bilateral leg pain 729.5 [place] [id number] [place] [address] 27043- 9854 Oct, [place] [id number] [place] [address] 17384- 4226 Oct, Bilateral leg pain 729.5 and Hypertension 401.9 [place] [id number] [place] [address] 66917- 4777 Sep, Bilateral leg pain 729.5 ; Hypertension 401.9 and Edema 782.3 [place] [id number] [place] [address] 38404- 8127 Aug, Unspecified hereditary and idiopathic peripheral neuropathy 356.9 and Arthritis 716.90 [place] [id number] [place] [address] 60389- 1061 Aug, [facility] [place] [facility] [address] [id number] [place] [address]- 3852 July, [facility] [place] [facility] [address] [id number] [place] [address]- 8482 30 Jun, 2014 [facility] [place] [facility] [address] [id number] [place] [address]- 3686 14 Jun, 2014 [facility] [place] [facility] [address] [id number] [place] [address]- 5166 Jun, [facility] [place] [facility] [address] [id number] [place] [address]- 8883 May, [facility] [place] [facility] [address] [id number] [place] [address]- 6902 25 May, 2014 [facility] [place] [facility] [address] [id number] [place] [address]- 6846 May, [facility] [place] [facility] [address] [id number] [place] [address]- 2811 24 May, 2014 [facility] [place] [facility] [address] [id number] [place] [address]- 8885 16 May, 2014 [facility] [place] [facility] [address] [id number] [place] [address]- 8258 16 May, 2014 [facility] [place] [facility] [address] [id number] [place] [address]- 8120 10 May, 2014 [facility] [place] [facility] [address] [id number] [place] [address]- 1833 10 May, 2014 [facility] [place] [facility] [address] [id number] [place] [address]- 8366 04 May, 2014 [facility] [place] [facility] [address] [id number] [place] [address]- 9163 03 May, 2014 [facility] [place] [facility] [address] [id number] [place] [address]- 0756 03 May, 2014 [facility] [place] [facility] [address] [id number] [place] [address]- 4551 Apr, 2014 [facility] [place] [facility] [address] [id number] [place] [address]- 2607 Apr, 2014 [facility] [place] [facility] [address] [id number] [place] [address]- 6887 Apr, 2014 [facility] [place] [facility] [address] [facility]] [id number] [place] [address]- 7669 Apr, 2014 [facility] [place] [facility] [address] [id number] [place] [address]- 7364 Apr, 2014 [facility] [place] [facility] [address] [id number] [place] [address]- 6295 Apr, 2014 [facility] [place] [facility] [address] [facility] [id number] [place] [address]- 2246 Apr, [facility] [place] [facility] [id number] [place] [address]- 3914 Apr, [facility] [place] [facility] [address] [facility]] [id number] [place] [address]- 6084 Mar, [facility] [place] [facility] [address] [facility]] [id number] [place] [address]- 1167 Mar, [facility] [place] [facility] [address] [facility]] [id number] [place] [address]- 6687 Mar, [facility] [place] [facility] [address] [facility]] [id number] [place] [address]- 5403 Mar, [facility] [place] [facility] [address] [facility]] [id number], [place] [address]- 4102 Mar, [facility] [place] [facility] [address] [facility]] [id number], [place] [address]- 8153 Mar, [facility] [place] [facility] [address] [facility]] [id number] [place] [address]- 3639 Feb, [facility] [place] [facility] [address] [facility]] [id number] [place] [address]- 1014 Feb, [facility] [place] [facility] [address] [id number] [place] 6456 Feb, [facility] [place] [facility] [address] [id number] [place] [address]- 3266 Feb, [facility] [place] [facility] [address] [id number] [place] [address]- 3696 Feb, [facility] [place] [facility] [address] [id number] [place] [address]- 3406 Feb, [facility] [place] [facility] [address] [id number] [place] [address]- 2268 Feb, [facility] [place] [facility] [address] [id number] [place] [address]- 3028 Feb, [facility] [place] [facility] [address] [id number] [place] [address]- 6008 Feb, [facility] [place] [facility] [address] [id number] [place] [address]- 9465 Feb, [facility] [place] [facility] [address] [id number] [place] [address]- 6699 18 Feb, 2014 [facility] [place] [facility] [address] [id number] [place] [address]- 1786 Feb, [facility] [place] [facility] [address] [id number] [place] [address]- 3505 18 Feb, 2014 [facility] [place] [facility] [address] [id number] [place] [address]- 4071 15 Feb, 2014 [facility] [place] [facility] [address] [id number] [place] [address]- 7366 15 Feb, 2014 [facility] [place] [facility] [address] [id number] [place] [address]- 7336 10 Feb, 2014 [facility] [place] [facility] [address] [id number] [place] 5766 10 Feb, 2014 [facility] [place] [facility] [address] [id number] [place] [address]- 0512 Feb, [facility] [place] [facility] [address] [id number] [place] 4445 Feb, [facility] [place] [facility] [address] [id number] [place] [address]- 4789 Feb, [facility] [place] [facility] [address] [id number] [place] [address]- 6826 Feb, [facility] [place] [facility] [address] [id number] [place] 1287 Feb, [facility] [place] [facility] [address] [id number] [place] [address]- 0509 Feb, [facility] [place] [facility] [address] [id number] [place] [address]- 8749 Jan, [facility] [place] [facility] [address] [id number] [place] [address]- 7606 Jan, [facility] [place] [facility] [address] [id number] [place] [address]- 5346 Jan, [facility] [place] [facility] [address] [id number] [place] [address]- 7783 Jan, [facility] [place] [facility] [address] [id number] [place] [address]- 6874 Jan, [facility] [place] [facility] [address] [id number], [place] [address]- 0703 Jan, [facility] [place] [facility] [address] [id number], [place] [address]- 0487 Jan, [facility] [place] [facility] [address] [id number] [place] [address]- 6343 Jan, [facility] [place] [facility] [address] [id number], [place] [address]- 3119 Jan, [facility] [place] [facility] [address] [id number], [place] [address]- 0600 Dec, [facility] [place] [facility] [address] [id number] [place] [address]- 2787 Dec, 2013 [facility] [place] [facility] [address] [id number] [place] [address]- 5910 Dec, 2013 [facility] [place] [facility] [address] [id number] [place] [address]- 0481 Dec, 2013 [facility] [place] [facility] [address] [id number] [place] [address]- 9944 Dec, 2013 [facility] [place] [facility] [address] [id number] [place] [address]- 5542 Dec, 2013 [facility] [place] [facility] [address] [id number] [place] [address]- 9063 Dec, [facility] [place] [facility] [address] [id number] [place] [address]- 0128 Dec, [facility] [place] [facility] [address] [id number] [place] [address]- 6670 Dec, 2013 [facility] [place] [facility] [address] [id number] [place] [address]- 7384 Dec, [facility] [place] [facility] [address] [id number] [place] [address]- 1746 30 Nov, 2013 [facility] [place] [facility] [address] [id number] [place] [address]- 8843 30 Nov, 2013 [facility] [place] [facility] [address] [id number] [place] [address]- 3682 12 Nov, 2013 [facility] [place] [facility] [address] [id number] [place] [address]- 2548 12 Nov, 2013 [facility] [place] [facility] [address] [id number] [place] [address]- 2043 12 Nov, 2013 [facility] [place] [facility] [address] [id number] [place] [address]- 2547 12 Nov, 2013 [facility] [place] [facility] [address] [id number] [place] [address]- 2055 Nov, [facility] [place] [facility] [address] [id number] [place] [address]- 8255 Nov, [facility] [place] [facility] [address] [id number] [place] [address]- 0495 Nov, [facility] [place] [facility] [address] [id number] [place] [address]- 3458 Nov, [facility] [place] [facility] [address] [id number] [place] [address]- 3591 Oct, [facility] [place] [facility] [address] [id number] [place] [address]- 0679 Oct, [facility] [place] [facility] [address] [id number] [place] [address]- 0525 Oct, [facility] [place] [facility] [address] [id number] [place] [address]- 7280 Oct, [facility] [place] [facility] [address] [id number] [place] [address]- 5555 Oct, [facility] [place] [facility] [address] [id number] [place] [address]- 5330 Oct, [facility] [place] [facility] [address] [id number] [place] [address]- 1054 Oct, [facility] [place] [facility] [address] [id number] [place] [address]- 7512 Oct, [facility] [place] [facility] [address] [id number] [place] [address]- 1922 Oct, [facility] [place] [facility] [address] [id number] [place] [address]- 1673 Oct, [facility] [place] [facility] [address] [id number] [place] [address]- 7178 Sep, [facility] [place] [facility] [address] [id number] [place] [address]- 6731 Sep, [facility] [place] [facility] [address] [id number] [place] [address]- 1489 Aug, [facility] [place] [facility] [address] [id number] [place] [address]- 5320 Aug, [facility] [place] [facility] [address] [id number] [place] [address]- 7878 Aug, [facility] [place] [facility] [address] [id number] [place] [address]- 4629 Aug, [facility] [place] [facility] [address] [id number] [place] [address]- 9296 Aug, [facility] [place] [facility] [address] [id number] [place] [address]- 3647 Aug, [facility] [place] [facility] [address] [id number] [place] [address]- 1952 Aug, [facility] [place] [facility] [address] [id number] [place] [address]- 9583 Aug, [facility] [place] [facility] [address] [id number] [place] [address]- 0186 Aug, [facility] [place] [facility] [address] [id number] [place] [address]- 7364 Aug, [facility] [place] [facility] [address] [id number] [place] [address]- 9471 Aug, [facility] [place] [facility] [address] [id number] [place] [address]- 5252 Aug, [facility] [place] [facility] [address] [id number] [place] [address]- 1562 July, [facility] [place] [facility] [address] [id number] [place] [address]- 1583 July, [facility] [place] [facility] [address] [id number] [place] [address]- 1873 July, [facility] [place] [facility] [address] [id number] [place] [address]- 6920 July, [facility] [place] [facility] [address] [id number] [place] [address]- 8210 July, [facility] [address] [id number] [place] [address]- 6804 July, [facility] [place] [facility] [address] [id number] [place] [address]- 0311 July, [facility] [address] [id number] [place] [address] July, [facility] [place] [facility] [address] [id number] [place] [address] Jun, [facility] [place] [facility] [address] [id number] [place] [address] Jun, [facility] [place] [facility] [address] [id number] [place] [address] May, [facility] [place] [facility] [address] [id number] [place] [address] May, [facility] [address] [id number] [place] [address] May, [facility] [place] [facility] [address] [id number] [place] [address] May, [facility] [address] [id number] [place] [address] May, [facility] [place] [facility] [address] [id number] [place] [address] May, [facility] [place] [facility] [address] [id number] [place] [address] May, [facility] [place] [facility] [address] [id number] [place] [address] May, [facility] [place] [facility] [address] [id number] [place] [address] Apr, [facility] [place] [facility] [address] [id number] [place] [address] Apr, [facility] [place] [facility] [address] [id number] [place] [address] Apr, [facility] [place] [facility] [address] [id number] [place] [address] Apr, [facility] [place] [facility] [address] [id number] [place] [address] Apr, [facility] [place] [facility] [address] [id number] [place] [address] Apr, [facility] [place] [facility] [address] [id number] [place] [address] Apr, [facility] [place] [facility] [address] [id number] [place] [address]- [address] Apr, [facility] [place] [facility] [address] [id number] [place] [address] Mar, [facility] [place] [facility] [address] [id number] [place] [address] Mar, [facility] [place] [facility] [address] [id number] [place] [address] Mar, [facility] [place] [facility] [address] [id number] [place] [address] Mar, [facility] [place] [facility] [address] [id number] [place] [address] Mar, [facility] [place] [facility] [address] [id number] [place] [address] Mar, [facility] [place] [facility] [address] [id number] [place] [address] Mar, [facility] [place] [facility] [address] [id number] [place] [address] Mar, [facility] [place] [facility] [address] [id number] [place] [address] Mar, [facility] [place] [facility] [address] [id number] [place] [address] Mar, [facility] [address] [id number] [place] [address] Feb, [facility] [place] [facility] [address] [id number] [place] [address] Feb, [facility] [address] [id number] [place] [address] Feb, [facility] [place] [facility] [address] [id number] [place] [address] Feb, [facility] [place] [facility] [address] [id number] [place] [address] Jan, [facility] [place] [facility] [address] [id number] [place] [address] Jan, [facility] [place] [facility] [address] [id number] [place] [address] Dec, [facility] [address] [id number] [place] [address] 30 Dec, 2012 [facility] [place] [facility] [address] [id number] [place] [address] Dec, [facility] [address] [id number] [place] [address] 28 Dec, 2012 [facility] [place] [facility] [address] [id number] [place] [address] 18 Dec, 2012 [facility] [place] [facility] [address] [id number] [place] [address] 18 Dec, 2012 [facility] [place] [facility] [address] [id number] [place] [address] 14 Dec, 2012 [facility] [place] [facility] [address] [id number] [place] [address] 14 Dec, 2012 [facility] [place] [facility] [address] [id number] [place] [address] Dec, [facility] [place] [facility] [address] [id number] [place] [address] Dec, [facility] [place] [facility] [address] [id number] [place] [address] Dec, [facility] [place] [facility] [address] [id number] [place] [address]- [address] Dec, [facility] [place] [facility] [address] [id number] [place] [address] Dec, [facility] [place] [facility] [address] [id number] [place] [address] Nov, [facility] [place] [facility] [address] [id number] [place] [address] Nov, [facility] [place] [facility] [address] [id number] [place] [address] Nov, [facility] [place] [facility] [address] [id number], [place] [address] Nov, [facility] [place] [facility] [address] [id number] [place] [address] Nov, [facility] [place] [facility] [address] [id number], [place] [address] Oct, [facility] [place] [facility] [address] [id number], [place] [address] Oct, [facility] [place] [facility] [address] [id number], [place] [address] Oct, [facility] [place] [facility] [address] [id number] [place] [address] Oct, [facility] [place] [facility] [address] [id number], [place] [address] Oct, [facility] [place] [facility] [address] [id number], [place] [address] Oct, [facility] [place] [facility] [address] [id number], [place] [address] Oct, [facility] [address] [id number] [place] [address] Sep, [facility] [address] [id number] [place] [address] Sep, [facility] [address] [id number] [place] [address] Sep, [facility] [address] [id number] [place] [address] 67[address] Aug, [facility] [address] [id number] [place] [address] Aug, [facility] [address] [id number] [place] [address] Aug, [facility] [address] [id number] [place] [address] Aug, [facility] [address] [id number] [place] [address]270 July, [facility] [address] [id number] [place] [address] 1283 July, [facility] [address] [id number] [place] [address] July, [facility] [address] [id number] [place] [address] July, [facility] [place] [facility] [address] [id number] [place] [address] 6038 Jun, [facility] [place] [facility] [address] [id number] [place] [address] 360[address] Jun, [facility] [place] [facility] [address] [id number] [place] [address]- 8471 May, [facility] [place] [facility] [address] [id number] [place] [address]- 0880 May, [facility] [place] [facility] [address] [id number] [place] [address]- 8[address] Apr, [facility] [place] [facility] [address] [id number] [place] [address] 5456 Apr, [facility] [place] [facility] [address] [id number] [place] [address]- [address]273 Feb, [facility] [place] [facility] [address] [id number] [place] [address] Feb, [facility] [place] [facility] [address] [id number] [place] [address]- [address]385 Feb, [facility] [place] [facility] [address] [id number] [place] [address]- 9030 Feb, [facility] [place] [facility] [address] [id number] [place] [address]- 5310 Feb, [facility] [place] [facility] [address] [id number] [place] [address]- 7482 Feb, [facility] [place] [facility] [address] [id number] [place] [address]- 0899 Jan, [facility] [place] [facility] [address] [id number] [place] [address] 9[address] Jan, [facility] [place] [facility] [address] [id number] [place] [address]- 2434 Jan, [facility] [place] [facility] [address] [id number] [place] [address] 1620 Jan, [facility] [place] [facility] [address] [id number] [place] [address]- 6198 Jan, [facility] [place] [facility] [address] [id number] [place] [address]- 0808 Jan, [facility] [place] [facility] [address] [id number] [place] [address]- 8280 Jan, [facility] [place] [facility] [address] [id number] [place] [address]- 6367 Jan, [facility] [place] [facility] [address] [id number] [place] [address]- [address]37 15 Jan, 2012 [facility] [place] [facility] [address] [id number], [place] [address] Jan, [facility] [place] [facility] [address] [facility]] [id number] [place] [address]- 5970 Jan, [facility] [place] [facility] [address] [id number], [place] [address]- 4[address] Jan, [facility] [place] [facility] [address] [id number] [place] [address]- 3946 Jan, [facility] [place] [facility] [address] [facility]] [id number], [place] [address]- [address] Dec, [facility] [place] [facility] [address] [id number], [place] [address]- [address] Dec, [facility] [place] [facility] [address] [id number], [place] [address]- 4[address] Dec, [facility] [place] [facility] [address] [id number], [place] [address]- 2292 Dec, [facility] [place] [facility] [address] [facility]] [id number], [place] [address] Dec, [facility] [place] [facility] [address] [id number], [place] [address]- [address] Dec, [facility] [place] [facility] [address] [id number], [place] [address]- 8677 Dec, [facility] [place] [facility] [address] [id number], [place] [address]- 76[address] Nov, [facility] [place] [facility] [address] [facility]] [id number], [place] [address]- 4310 Nov, [facility] [place] [facility] [address] [facility]] [id number], [place] [address]- 4725 Oct, [facility] [place] [facility] [address] [id number] [place] [address]- 9654 Oct, [facility] [address] [id number] [place] [address]- 7029 Sep, [facility] [address] [id number] [place] [address] Sep, [facility] [address] [id number] [place] [address]- 7526 Sep, [facility] [address] [id number] [place] [address]- 2797 Sep, [facility] [address] [id number] [place] [address]- 0167 July, [facility] [address] [id number] [place] [address]- 4173 July, [facility] [address] [id number] [place] [address]- 4745 July, [facility] [address] [id number] [place] [address]- 2394 Jun, [facility] [address] [id number] [place] [address]- 9389 Jun, [facility] [address] [id number] [place] [address]- 9897 Jun, [facility] [address] [id number] [place] [address]- 4382 16 Jun, 2011 [facility] [address] [id number] [place] [address]- 3363 13 Jun, 2011 [facility] [address] [id number] [place] [address]- 1078 10 Jun, 2011 [facility] [address] [id number] [place] [address]- 0092 06 Jun, 2011 [facility] [address] [id number] [place] [address]- 8280 05 Jun, 2011 [facility] [place] [facility] [address] [id number] [place] [address] 2549 Jun, [facility] [place] [facility] [address] [id number] [place] [address] 2546 May, [facility] [place] [facility] [address] [id number] [place] [address] 2546 May, [facility] [place] [facility] [address] [id number] [place] [address] 2546 May, [facility] [place] [facility] [address] [id number] [place] [address] 2540 May, [facility] [place] [facility] [address] [id number] [place] [address] 2546 May, [facility] [place] [facility] [address] [facility]] [id number] [place] [address]- 4517 Apr, [facility] [place] [facility] [address] [id number] [place] [address]- 5051 Mar, [facility] [place] [facility] [address] [id number] [place] [address]- 9754 Mar, [facility] [place] [facility] [address] [facility]] [id number], [place] [address]- 1243 Feb, [facility] [place] [facility] [address] [facility]] [id number], [place] [address] 2546 Feb, [facility] [place] [facility] [address] [id number], [place] [address] 2546 Feb, [facility] [place] [facility] [address] [id number] [place] [address] 2541 Jan, [facility] [place] [facility] [address] [id number], [place] [address]- 2546 Dec, [facility] [place] [facility] [address] [facility]] [id number], [place] [address] 2546 Dec, [facility] [place] [facility] [address] [id number], [place] [address]- 2278 11 Dec, 2010 [facility] [address] [id number] [place] [address]- 1249 16 Jul, 2010 [facility] [address] [id number] [place] [address]- 4447 18 May, 2010 [facility] [address] [id number] [place] [address]- 2092 22 Feb, 2010 [facility] [address] [id number] [place] [address]- 9425 15 Feb, 2010 [facility] [address] [id number] [place] [address] 09 Feb, 2010 [facility] [address] [id number] [place] [address]- 9104 Jan, [facility] [address] [facility]] [id number] [place] [address]- 9727 26 Dec, 2009 [facility] [address] [id number] [place] [address]- 1884 Dec, [facility] [address] [facility]] [id number] [place] [address]- 2825 Oct, [facility] [address] [facility]] [id number] [place] [address]- 0111 July, [facility] [address] [id number], [place] [address]- 2160 18 Apr, 2009 [facility] [place] [facility] [address] [id number], [place] [address]- 2384 Mar, [facility] [place] [facility] [address] [id number] [place] [address]- 8105 Feb, [facility] [place] [facility] [address] [id number] [place] [address]- 1500 18 Feb, 2009 [facility] [place] [facility] [address] [facility]] [id number] [place] [address]- 4878 Feb, [facility] [place] [facility] [address] [facility]] [id number], [place] [address]- 4066 Feb, [facility] [address] [id number] 9598 Feb, [facility] [address] [id number], [place] [address]- 0752 Jan, [facility] [address] [id number], [place] [address]- 1657 Jan, [facility] [address] [id number], [place] [address] Dec, [facility] [id number], [place] [address] [address] Nov, IMMUNIZATIONS No Known Immunizations SOCIAL HISTORY Never Assessed REASON FOR VISIT ganglion cyst of left hand. Consult Bandar Cantu;Anamaria RT(R) PLAN OF CARE Activity Details Follow Up prn Reason: VITAL SIGNS MEDICATIONS Unknown Medications RESULTS No Results PROCEDURES Procedure Date Ordered Result Body Site [facility] VISIT ESTABLISHED PATIENT Feb 18, 2017 INSTRUCTIONS MEDICATIONS ADMINISTERED No Known [...]
--- OUTSIDE RECORDS SUMMARY | 2018-02-11 11:16 | XMS REPORT ---
Author Author [facility] Address [address] [place] [address] Care Team Providers Care Weight Tester Name Role Phone TAMMY COPELAND Unavailable PROBLEMS Type Condition ICD9-CM Code DAV85-YT Code Onset Dates Condition Status SNOMED Code Problem GERD with esophagitis K21.0 Active 320061691 Problem Dyspnea on exertion R06.09 Active 80962180 Problem Essential hypertension I10 Active 34564349 Problem Allergic state, subsequent encounter T78.40XD Active 263927853 Problem Arthritis M19.90 Active 7222225 Problem Dyspnea, unspecified R06.00 Active 624234572 Problem Left upper quadrant pain R10.12 Active 517522970 Problem Hypothyroidism (acquired) E03.9 Active 053352123 Problem Chronic superficial gastritis without bleeding K29.30 Active 348635154 Problem Infraspinatus tendon tear, left, subsequent encounter S46.812D Active 1520208 Problem IRVIN (obstructive sleep apnea) G47.33 Active 84486709 Problem Supraspinatus tendon tear, left, subsequent encounter S46.812D Active 120652747 Problem Restless legs syndrome G25.81 Active 528000625 Problem Other specified hypothyroidism E03.8 Active 445333011 Problem Rupture of tendon of right shoulder S46.911A Active 636615822 Problem Bronchitis J40 Active 04831495 Problem Asthma J45.909 Active 346240590 Problem Asthma with acute exacerbation J45.901 Active 537958678 ALLERGIES Substance Reaction Event Type Date Status Celebrex nausea Drug Allergy Dec, Active ENCOUNTERS Encounter Location Date Diagnosis [facility] [address] [facility] [id number], [place] [address] Aug, [facility] [address] [facility] [id number], [place] [address] 6[address] July, [facility] [address] [place] [id number] [place] [address] 50552- 6913 Jun, [facility] [id number] [place] [address] 49779- 6033 May, Asthma J45.909 [facility] [id number] [place] [address] 03833- 7321 May, [place] [address] [address]- [address] Apr, Pre-op evaluation Z01.818 ; Allergic state, subsequent encounter T78.40XD and BMI 45.0-49.9, adult Z68.42 [place] [address] 7[address]01- 7503 Mar, [place] [address] 90782- 9297 Mar, [facility] [address] [address] -[address]94 Mar, Cough R05 ; Acute nasopharyngitis J00 and BMI 45.0-49.9, adult Z68.42 [place] [id number] [place] [address] 26610- 0132 Mar, [place] [address] [place] [id number] [place] [address] 35826- 0729 Jan, Ganglion cyst of finger of right hand M67.441 [place] [address] [id number] [place] [address] 53988- 4836 Dec, [place] [address] [place] [id number] [place] [address] 55758- 9561 10 Dec, 2016 Change in vision H53.9 ; Arthritis M19.90 ; Essential hypertension I10 ; GERD with esophagitis K21.0 ; Hypothyroidism (acquired) E03.9 and Ganglion cyst of joint of finger of left hand M67.442 [place] [address] 45142- 4255 Nov, Encounter for immunization Z23 [facility] [id number] [place] [address] 07997- 6388 Nov, [facility] [id number] [place] [address] 40472- 2917 Sep, [facility] [id number] [place] [address] 05722- 0475 Aug, [place] [address] 89567- 7484 July, Cyst of joint of right hand M25.841 [place] [address] 49765- 7656 May, [place] [address] 39754- 6125 May, Fever, unspecified R50.9 and Influenza A J10.1 [place] [address] 74583- 9054 May, Left shoulder pain, unspecified chronicity M25.512 [place] [address] [place] [id number] [place] [address] 31702- 7376 Apr, [place] [address] [id number] [place] [address] 64072- 3012 Apr, Infraspinatus tendon tear, left, subsequent encounter S46.812D and Supraspinatus tendon tear, left, subsequent encounter S46.812D [facility] [id number] [place] [address] 80753- 4414 Apr, [place] [id number] [place] [address] 64830- 2461 Mar, Left shoulder pain, unspecified chronicity M25.512 [facility] [id number] [place] [address] 89920- 5998 Mar, [facility] [id number] [place] [address] 16873- 0816 Mar, Left shoulder pain, unspecified chronicity M25.512 [place] [id number] [place] [address] 09948- 2934 Feb, Chronic superficial gastritis without bleeding K29.30 ; Left upper quadrant pain R10.12 ; Essential hypertension I10 ; Dyspnea on exertion R06.09 and Palpitations R00.2 [place] [address] 13187- 8996 Jan, Colon polyps K63.5 [place] [address] [id number] [place] [address] 19912- 6071 Jan, Colon polyps K63.5 [place] [address] [id number] [place] [address] 81434- 3238 Dec, [facility] [id number] [place] [address] 59968 -4656 Dec, GERD with esophagitis K21.0 [place] [address] [place] [id number] [place] [address] 82648- 2856 Nov, Arthritis pain M19.90 ; Colon polyps K63.5 ; Seasonal allergic rhinitis due to pollen J30.1 and Encounter for immunization Z23 [place] [id number] [place] [address] 56838- 3094 Nov, [place] [address] [place] [id number] [place] [address] 25816- 4048 Oct, [facility] [id number] [place] [address] 84706- 3824 Sep, [place] [address] [id number] [place] [address] 50227- 5374 July, [place] [address] [place] [id number] [place] [address] 63021- 9981 July, [place] [address] [place] [id number] [place] [address] 00970- 3170 July, Asthma with acute exacerbation J45.901 and Bronchitis J40 [facility] [id number] [place] [address] 53352- 9689 Jun, [facility] [id number] [place] [address] 50822- 1827 May, Other specified hypothyroidism E03.8 and 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 [place] [address] 85352- 0702 Apr, [facility] [id number] [place] [address] 54187- 5223 Apr, Sacroiliac joint pain M53.3 [place] [address] [id number] [place] [address] 51684- 9159 Mar, Other specified hypothyroidism E03.8 ; Restless legs syndrome G25.81 ; Asthma with acute exacerbation J45.901 and Bronchitis J40 [facility] [id number] [place] [address] 85679 -4291 Feb, Upper respiratory symptom R09.89 [place] [address] 12350- 7308 Feb, Restless leg G25.81 and Asthma J45.909 [place] [address] [place] [id number] [place] [address] 73462- 0973 Dec, Rupture of tendon of right shoulder S46.911A [place] [id number] [place] [address] 17257- 9167 Dec, Sacroiliac joint pain M53.3 [place] [id number] [place] [address] 18547- 4894 Nov, [place] [address] [id number] [place] [address] 90823- 5316 Nov, Lumbago of lumbosacaral region with sciatica 724.2 and Sacroiliitis 720.2 [place] [address] [place] [id number] [place] [address] 31928- 8071 Nov, Influenza vaccine administered V04.81 [facility] [id number] [place] [address] 85014- 1010 Nov, [facility] [id number] [place] [address] 79626- 5031 Nov, [facility] [address] 67054- 7167 18 Nov, 2014 Thyroid function test abnormal 794.5 and Thyroid antibody positive 795.79 [place] [id number] [place] [address] 16376- 2173 16 Nov, 2014 Hypothyroidism 244.9 ; Thyroid antibody positive 795.79 and Right shoulder pain 719.41 [place] [id number] [place] [address] 55121- 0233 Oct, [place] [id number] [place] [address] 35973- 8694 Oct, Thyroid function test abnormal 794.5 [place] [address] [place] [id number] [place] [address] 60916- 0273 14 Oct, 2014 Hypertension 401.9 and Bilateral leg pain 729.5 [place] [address] [place] [place] [id number] [place] [address] 85411- 2898 Oct, [place] [id number] [place] [address] 10179- 7431 Oct, Bilateral leg pain 729.5 and Hypertension 401.9 [place] [address] [place] [id number] [place] [address] 81290- 0392 Sep, Bilateral leg pain 729.5 ; Hypertension 401.9 and Edema 782.3 [place] [address] [id number] [place] [address] 57866- 2607 Aug, Unspecified hereditary and idiopathic peripheral neuropathy 356.9 and Arthritis 716.90 [place] [address] [id number] [place] [address] 67583- 6933 Aug, [facility] [place] [facility] [address] [id number] [place] [address]- 1092 July, [facility] [place] [facility] [address] [id number] [place] [address]- 2324 30 Jun, 2014 [facility] [place] [facility] [address] [id number] [place] [address]- 8451 Jun, [facility] [place] [facility] [address] [id number] [place] [address]- 4191 Jun, [facility] [place] [facility] [address] [id number] [place] [address]- 1886 May, [facility] [place] [facility] [address] [id number] [place] [address]- 8490 May, [facility] [place] [facility] [address] [id number] [place] [address]- 7424 May, [facility] [place] [facility] [address] [id number] [place] [address]- 2916 24 May, 2014 [facility] [place] [facility] [address] [id number] [place] [address]- 0706 16 May, 2014 [facility] [place] [facility] [address] [facility] [id number] [place] [address]- 0278 16 May, 2014 [facility] [place] [facility] [address] [id number] [place] [address]- 1155 May, [facility] [place] [facility] [address] [id number] [place] [address]- 4695 10 May, 2014 [facility] [place] [facility] [address] [id number] [place] [address]- 5118 04 May, 2014 [facility] [place] [facility] [address] [id number] [place] [address]- 5036 May, [facility] [place] [facility] [address] [facility] [id number] [place] [address]- 1861 May, [facility] [place] [facility] [address] [id number] [place] [address]- 1241 Apr, 2014 [facility] [place] [facility] [address] [id number] [place] [address]- 5877 Apr, 2014 [facility] [place] [facility] [address] [id number] [place] [address]- 2885 Apr, 2014 [facility] [place] [facility] [address] [id number] [place] [address]- 9311 Apr, 2014 [facility] [place] [facility] [address] [id number] [place] [address]- 3425 Apr, 2014 [facility] [place] [facility] [address] [id number] [place] [address]- 7302 Apr, 2014 [facility] [place] [facility] [address] [facility] [id number] [place] [address]- 7767 Apr, 2014 [facility] [place] [facility] [address] [id number] [place] [address]- 8979 Apr, [facility] [place] [facility] [address] [id number] [place] [address]- 5446 Mar, [facility] [place] [facility] [address] [facility] [id number] [place] [address]- 3665 Mar, [facility] [place] [facility] [address] [facility] [id number], [place] [address]- 5218 Mar, [facility] [place] [facility] [address] [id number], [place] [address]- 6191 Mar, [facility] [place] [facility] [address] [id number], [place] [address]- 2545 Mar, [facility] [place] [facility] [address] [id number] [place] [address]- 4174 Mar, [facility] [place] [facility] [address] [facility] [id number], [place] [address]- 7665 Feb, [facility] [place] [facility] [address] [id number], [place] [address]- 1067 Feb, [facility] [place] [facility] [address] [id number] [place] [address]- 1946 Feb, [facility] [place] [facility] [address] [id number] [place] [address]- 0136 Feb, [facility] [place] [facility] [address] [id number] [place] [address]- 1536 Feb, [facility] [place] [facility] [address] [id number] [place] [address]- 7768 Feb, [facility] [place] [facility] [address] [id number] [place] [address]- 7929 Feb, [facility] [place] [facility] [address] [id number] [place] [address]- 2931 Feb, [facility] [place] [facility] [address] [id number] [place] [address]- 1828 Feb, [facility] [place] [facility] [address] [id number] [place] [address]- 0134 Feb, [facility] [place] [facility] [address] [id number] [place] [address]- 1216 18 Feb, 2014 [facility] [place] [facility] [address] [id number] [place] [address]- 1248 18 Feb, 2014 [facility] [place] [facility] [address] [id number] [place] [address]- 6880 18 Feb, 2014 [facility] [place] [facility] [address] [id number] [place] [address]- 9582 15 Feb, 2014 [facility] [place] [facility] [address] [id number] [place] [address]- 6300 15 Feb, 2014 [facility] [place] [facility] [address] [id number] [place] [address]- 4488 10 Feb, 2014 [facility] [place] [facility] [address] [id number] [place] [address]- 1545 10 Feb, 2014 [facility] [place] [facility] [address] [id number] [place] [address]- 7939 Feb, [facility] [place] [facility] [address] [id number] [place] [address]- 4706 Feb, [facility] [place] [facility] [address] [id number] [place] [address]- 9867 Feb, [facility] [place] [facility] [address] [id number] [place] [address]- 5106 Feb, [facility] [place] [facility] [address] [id number] [place] [address]- 1790 Feb, [facility] [place] [facility] [address] [id number] [place] [address]- 7490 Feb, [facility] [place] [facility] [address] [id number] [place] [address]- 9955 Jan, [facility] [place] [facility] [address] [id number] [place] [address]- 4276 Jan, [facility] [place] [facility] [address] [id number] [place] [address]- 0147 Jan, [facility] [place] [facility] [address] [id number] [place] [address]- 6557 Jan, [facility] [place] [facility] [address] [facility] [id number] [place] [address]- 9658 Jan, [facility] [place] [facility] [address] [id number] [place] [address]- 9279 Jan, [facility] [place] [facility] [address] [id number] [place] [address]- 5151 Jan, [facility] [place] [facility] [address] [id number] [place] [address]- 5937 Jan, [facility] [place] [facility] [address] [id number] [place] [address]- 3362 Jan, [facility] [place] [facility] [address] [id number] [place] [address]- 8818 Dec, [facility] [place] [facility] [address] [id number] [place] [address]- 3120 Dec, 2013 [facility] [place] [facility] [address] [id number] [place] [address]- 3871 Dec, [facility] [place] [facility] [address] [id number] [place] [address]- 2360 Dec, [facility] [place] [facility] [address] [id number] [place] [address]- 1411 Dec, 2013 [facility] [place] [facility] [address] [id number] [place] [address]- 1073 Dec, [facility] [place] [facility] [address] [id number] [place] [address]- 7584 Dec, [facility] [place] [facility] [address] [id number] [place] [address]- 4610 Dec, [facility] [place] [facility] [address] [id number] [place] [address]- 5116 Dec, [facility] [place] [facility] [address] [id number] [place] [address]- 6647 Dec, [facility] [place] [facility] [address] [id number], [place] [address]- 4546 30 Nov, 2013 [facility] [place] [facility] [address] [id number], [place] [address]- 3518 30 Nov, 2013 [facility] [place] [facility] [address] [id number], [place] [address]- 5270 12 Nov, 2013 [facility] [place] [facility] [address] [id number] [place] [address]- 2933 12 Nov, 2013 [facility] [place] [facility] [address] [id number] [place] [address]- 9973 12 Nov, 2013 [facility] [place] [facility] [address] [id number], [place] [address]- 6137 Nov, 2013 [facility] [place] [facility] [address] [id number] [place] [address]- 5166 Nov, [facility] [place] [facility] [address] [id number] [place] [address]- 8069 Nov, [facility] [place] [facility] [address] [id number] [place] [address]- 2172 Nov, [facility] [place] [facility] [address] [id number] [place] [address]- 6183 Nov, [facility] [place] [facility] [address] [id number] [place] [address]- 3961 Oct, [facility] [place] [facility] [address] [id number] [place] [address]- 3242 Oct, [facility] [place] [facility] [address] [id number] [place] [address]- 2303 Oct, [facility] [place] [facility] [address] [id number] [place] [address]- 0825 Oct, [facility] [place] [facility] [address] [id number] [place] [address]- 0380 Oct, [facility] [place] [facility] [address] [id number] [place] [address]- 0417 Oct, [facility] [place] [facility] [address] [id number] [place] [address]- 1581 Oct, [facility] [place] [facility] [address] [id number] [place] [address]- 3848 Oct, [facility] [place] [facility] [address] [id number] [place] [address]- 1244 Oct, [facility] [place] [facility] [address] [id number] [place] [address]- 2834 Oct, [facility] [place] [facility] [address] [id number] [place] [address]- 1186 Sep, [facility] [place] [facility] [address] [id number] [place] [address]- 1382 Sep, [facility] [place] [facility] [address] [id number] [place] [address]- 0650 Aug, [facility] [place] [facility] [address] [id number] [place] [address]- 8049 Aug, [facility] [place] [facility] [address] [id number] [place] [address]- 0982 Aug, [facility] [place] [facility] [address] [id number] [place] [address]- 0720 Aug, [facility] [place] [facility] [address] [id number] [place] [address]- 3726 Aug, [facility] [place] [facility] [address] [id number] [place] [address]- 9381 Aug, [facility] [place] [facility] [address] [id number] [place] [address]- 9492 Aug, [facility] [place] [facility] [address] [id number] [place] [address] Aug, [facility] [place] [facility] [address] [id number] [place] [address] Aug, [facility] [place] [facility] [address] [id number] [place] [address] Aug, [facility] [place] [facility] [address] [id number] [place] [address] Aug, [facility] [place] [facility] [address] [id number] [place] [address] Aug, [facility] [place] [facility] [address] [id number] [place] [address] July, [facility] [place] [facility] [address] [id number] [place] [address] July, [facility] [place] [facility] [address] [id number] [place] [address] July, [facility] [place] [facility] [address] [id number] [place] [address] July, [facility] [place] [facility] [address] [id number] [place] [address] July, [facility] [place] [facility] [address] [id number] [place] [address] July, [facility] [place] [facility] [address] [id number] [place] [address] July, [facility] [place] [facility] [address] [id number] [place] [address] July, [facility] [place] [facility] [address] [id number] [place] [address] Jun, [facility] [place] [facility] [address] [id number] [place] [address] Jun, [facility] [place] [facility] [address] [id number] [place] [address] May, [facility] [place] [facility] [address] [id number] [place] [address] May, [facility] [place] [facility] [address] [id number] [place] [address] May, [facility] [place] [facility] [address] [id number] [place] [address] May, [facility] [place] [facility] [address] [id number] [place] [address]- [address] May, [facility] [place] [facility] [address] [id number] [place] [address] May, [facility] [place] [facility] [address] [id number] [place] [address] May, [facility] [place] [facility] [address] [id number] [place] [address] May, [facility] [place] [facility] [address] [id number] [place] [address] Apr, [facility] [place] [facility] [address] [id number] [place] [address] Apr, [facility] [place] [facility] [address] [id number] [place] [address] Apr, [facility] [place] [facility] [address] [id number] [place] [address] Apr, [facility] [place] [facility] [address] [id number] [place] [address]- 118[address] Apr, [facility] [place] [facility] [address] [id number] [place] [address]- [address] Apr, [facility] [place] [facility] [address] [id number] [place] [address] Apr, [facility] [place] [facility] [address] [id number] [place] [address]- [address] Apr, [facility] [place] [facility] [address] [id number] [place] [address] Mar, [facility] [place] [facility] [address] [id number] [place] [address] Mar, [facility] [place] [facility] [address] [id number] [place] [address]- [address] Mar, [facility] [place] [facility] [address] [id number] [place] [address] Mar, [facility] [place] [facility] [address] [id number] [place] [address]- [address] Mar, [facility] [place] [facility] [address] [id number] [place] [address] Mar, [facility] [place] [facility] [address] [id number] [place] [address] Mar, [facility] [place] [facility] [address] [id number] [place] [address]- [address] Mar, [facility] [place] [facility] [address] [id number], [place] [address] Mar, [facility] [place] [facility] [address] [id number] [place] [address] Mar, [facility] [place] [facility] [address] [id number] [place] [address]- [address] Feb, [facility] [place] [facility] [address] [id number] [place] [address]- [address] Feb, [facility] [place] [facility] [address] [id number], [place] [address] Feb, [facility] [place] [facility] [address] [id number] [place] [address] Feb, [facility] [place] [facility] [address] [id number] [place] [address]- [address] Jan, [facility] [place] [facility] [address] [id number] [place] [address]- [address] Jan, [facility] [place] [facility] [address] [id number], [place] [address]- [address] 30 Dec, 2012 [facility] [place] [facility] [address] [id number] [place] [address]- [address] 30 Dec, 2012 [facility] [place] [facility] [address] [id number] [place] [address]- [address] Dec, [facility] [place] [facility] [address] [id number], [place] [address] 28 Dec, 2012 [facility] [place] [facility] [address] [id number], [place] [address] 18 Dec, 2012 [facility] [place] [facility] [address] [id number] [place] [address] 18 Dec, 2012 [facility] [place] [facility] [address] [id number], [place] [address] 14 Dec, 2012 [facility] [place] [facility] [address] [id number] [address] 14 Dec, 2012 [facility] [place] [facility] [address] [id number] [place] [address] Dec, [facility] [address] [id number] [place] [address] Dec, [facility] [place] [facility] [address] [id number] [place] [address] Dec, [facility] [address] [id number] [place] [address] Dec, [facility] [place] [facility] [address] [id number] [place] [address] Dec, [facility] [address] [id number] [place] [address] Nov, [facility] [address] [id number] [place] [address] Nov, [facility] [place] [facility] [address] [id number] [place] [address] Nov, [facility] [address] [id number] [place] [address] Nov, [facility] [place] [facility] [address] [id number] [place] [address] Nov, [facility] [address] [id number] [place] [address] Oct, [facility] [place] [facility] [address] [id number] [place] [address] Oct, [facility] [place] [facility] [address] [id number] [place] [address] Oct, [facility] [place] [facility] [address] [id number] [place] [address] Oct, [facility] [place] [facility] [address] [id number] [place] [address] Oct, [facility] [place] [facility] [address] [id number] [place] [address] 3916 Oct, [facility] [address] [id number] [place] [address]44 Oct, [facility] [place] [facility] [address] [id number] [place] [address] Sep, [facility] [place] [facility] [address] [id number] [place] [address] Sep, [facility] [place] [facility] [address] [id number] [place] [address] 285[address] Sep, [facility] [address] [id number] [place] [address] Aug, [facility] [place] [facility] [address] [id number] [place] [address] Aug, [facility] [place] [facility] [address] [id number] [place] [address] Aug, [facility] [place] [facility] [address] [id number] [place] [address] Aug, [facility] [place] [facility] [address] [id number] [place] [address] July, [facility] [place] [facility] [address] [id number] [place] [address] July, [facility] [place] [facility] [address] [id number] [place] [address] 46[address] July, [facility] [place] [facility] [address] [id number], [place] [address] July, [facility] [place] [facility] [address] [id number] [place] [address] Jun, [facility] [place] [facility] [address] [id number] [place] [address] Jun, [facility] [place] [facility] [address] [id number] [place] [address] 6657 May, [facility] [place] [facility] [address] [id number], [place] [address] May, [facility] [address] [id number] [place] [address] Apr, [facility] [place] [facility] [address] [id number] [place] [address] Apr, [facility] [address] [id number] [place] [address] Feb, [facility] [place] [facility] [address] [id number] [place] [address] Feb, [facility] [place] [facility] [address] [id number] [place] [address] Feb, [facility] [place] [facility] [address] [id number] [place] [address] Feb, [facility] [address] [facility] [id number] [place] [address] Feb, [facility] [place] [facility] [address] [id number] [place] [address] Feb, [facility] [place] [facility] [address] [id number] [place] [address] Jan, [facility] [place] [facility] [address] [facility] [id number] [place] [address] 78[address] Jan, [facility] [place] [facility] [address] [id number] [place] [address] Jan, [facility] [place] [facility] [address] [id number] [place] [address]44 Jan, [facility] [place] [facility] [address] [id number] [place] [address] 6628 Jan, [facility] [place] [facility] [address] [id number] [place] [address] 9869 Jan, [facility] [place] [facility] [address] [facility] [id number] [place] [address] 9693 Jan, [facility] [place] [facility] [address] [id number] [place] [address]01 15 Jan, 2012 [facility] [place] [facility] [address] [id number] [place] [address]- [address]136 Jan, [facility] [place] [facility] [address] [id number] [place] [address] Jan, [facility] [place] [facility] [address] [id number] [place] [address] 8835 Jan, [facility] [place] [facility] [address] [id number] [place] [address]- 0[address] Jan, [facility] [place] [facility] [address] [id number] [place] [address]- 1468 Jan, [facility] [place] [facility] [address] [id number] [place] [address] 4555 Dec, [facility] [place] [facility] [address] [id number] [place] [address] 6332 Dec, [facility] [place] [facility] [address] [id number] [place] [address] Dec, [facility] [place] [facility] [address] [id number] [place] [address] 4258 Dec, [facility] [place] [facility] [address] [facility] [id number] [place] [address]- 6518 Dec, [facility] [place] [facility] [address] [id number] [place] [address] 0368 Dec, [facility] [place] [facility] [address] [id number] [place] [address]- 4375 Dec, [facility] [place] [facility] [address] [id number] [place] [address] 6896 Nov, [facility] [place] [facility] [address] [id number] [place] [address]396 04 Nov, 2011 [facility] [place] [facility] [address] [id number] [place] [address] Oct, [facility] [address] [id number] [place] [address]- 7783 Oct, [facility] [place] [facility] [address] [id number] [place] [address]- 7202 Sep, [facility] [place] [facility] [address] [id number] [place] [address]- 7118 Sep, [facility] [place] [facility] [address] [id number] [place] [address]- 8397 Sep, [facility] [place] [facility] [address] [id number] [place] [address]- 9608 Sep, [facility] [place] [facility] [address] [id number] [place] [address]- 9076 July, [facility] [place] [facility] [address] [id number] [place] [address]- 7700 July, [facility] [place] [facility] [address] [id number] [place] [address]- 5254 July, [facility] [place] [facility] [address] [id number] [place] [address]- 5849 Jun, [facility] [place] [facility] [address] [id number] [place] [address]- 4111 Jun, [facility] [place] [facility] [address] [id number] [place] [address]- 1392 Jun, [facility] [place] [facility] [address] [id number] [place] [address]- 6002 16 Jun, 2011 [facility] [place] [facility] [address] [id number] [place] [address]- 9626 13 Jun, 2011 [facility] [place] [facility] [address] [id number] [place] [address]- 7461 Jun, [facility] [place] [facility] [address] [id number] [place] [address]- 4015 Jun, [facility] [place] [facility] [address] [id number] [place] [address]- 1985 05 Jun, 2011 [facility] [address] [id number] [place] [address]- 4119 Jun, [facility] [place] [facility] [address] [id number] [place] [address]- 7111 May, [facility] [address] [id number] [place] [address]- 2659 May, [facility] [place] [facility] [address] [id number] [place] [address]- 2271 May, [facility] [address] [id number] [place] [address]- 1711 May, [facility] [place] [facility] [address] [id number] [place] [address] 2546 May, [facility] [address] [id number] [place] [address]- 6563 Apr, [facility] [address] [id number] [place] [address]- 7207 Mar, [facility] [address] [id number] [place] [address]- 8908 Mar, [facility] [address] [facility] [id number] [place] [address]- 0888 Feb, [facility] [place] [facility] [address] [id number] [place] [address]- 8810 Feb, [facility] [place] [facility] [address] [id number] [place] [address]- 6084 Feb, [facility] [place] [facility] [address] [id number] [place] [address]- 8838 Jan, [facility] [place] [facility] [address] [id number] [place] [address]- 2546 Dec, [facility] [place] [facility] [address] [id number] [place] [address]- 6817 Dec, [facility] [place] [facility] [address] [id number] [place] [address]- 3701 11 Dec, 2010 [facility] [place] [facility] [address] [id number] [place] [address]- 7643 16 Jul, 2010 [facility] [place] [facility] [address] [id number] [place] [address]- 0514 18 May, 2010 [facility] [place] [facility] [address] [id number] [place] [address]- 7772 Feb, [facility] [address] [id number] [place] [address]- 3498 15 Feb, 2010 [facility] [place] [facility] [address] [id number] [place] [address]- 1482 Feb, [facility] [address] [id number] [place] [address]- 7127 Jan, [facility] [address] [id number] [place] [address]- 6178 Dec, [facility] [address] [id number] [place] [address]- 2154 Dec, [facility] [address] [id number] [place] [address]- 7142 Oct, [facility] [place] [facility] [address] [id number] [place] [address]- 1421 13 Jul, 2009 [facility] [place] [facility] [address] [id number], [place] [address]- 4[address] 18 Apr, 2009 [facility] [place] [facility] [address] [id number] [place] [address]- 5473 Mar, [facility] [place] [facility] [address] [id number], [place] [address]- 6026 Feb, [facility] [place] [facility] [address] [id number], [place] [address]- 5193 Feb, [facility] [place] [facility] [address] [id number], [place] [address] 2546 Feb, [facility] [address] [id number], [place] [address] Feb, [facility] [address] [id number], [place] [address] 6690 Feb, [facility] [address] [id number], [place] [address]- 2011 Jan, [facility] [address] [id number], [place] [address] 5[address] Jan, [facility] [address] [id number], [place] [address] 2796 Dec, [facility] [address] [id number], [place] [address]- [address] Nov, IMMUNIZATIONS No Known Immunizations SOCIAL HISTORY Never Assessed REASON FOR VISIT HTN f/u. KBoleRN, Left eye vision changes, seeing spots, and headaches x 2-3 days. , Cyst on right 3rd finger. PLAN OF CARE Activity Details Follow Up eye eval Reason: VITAL SIGNS Height 70 in 2016-12-29 Weight 315.6 lbs 2016-12-29 Temperature 98.5 degrees Fahrenheit 2016-12-29 Heart Rate 72 bpm 2016-12-29 Respiratory Rate 20 2016-12-29 BMI 45.28 kg/m2 2016-12-29 Blood pressure systolic 136 mmHg 2016-12-29 Blood pressure diastolic 70 mmHg 2016-12-29 MEDICATIONS Medication Instructions Dosage Frequency Start Date End Date Duration Status Gabapentin 300 MG Orally 1 at HS TAKE ONE CAPSULE BY MOUTH DAILY AT NIGHT 30 Active MiraLax 17 gram/dose take 17 g mixed with 8 oz. water or juice by Oral route 1 time per day Dec, Active Levothyroxine Sodium 200 MCG TAKE ONE TABLET BY MOUTH DAILY Active Aspirin 81 mg 1 tablet by Oral route 1 time per day Feb, Active Quinapril HCl 20 mg Orally Once a day TAKE THREE TABLETS BY MOUTH DAILY 24h 30 Active Vitamin D3 1,000 unit 2 capsule by Oral route 1 time per day Dec, Active Fish Oil 1000 MG Orally Twice a day 1 capsule 12h Active Meloxicam 15 mg Orally Once a day 1 tablet 24h Jun, 90 days Active Omeprazole 20 mg Orally 2 times a day 1 capsule 12h 30 Active Fluticasone Propionate 50 MCG/ACT USE ONE SPRAY IN EACH NOSTRIL TWICE DAILY 30 Active Hydrochlorothiazide 50 mg Orally Once a day 1 tablet 24h 30 Active Norvasc 10 mg Orally Once a day 1 tablet 24h 30 days Active RESULTS No Results PROCEDURES Procedure Date Ordered Result Body Site LAB NOT BILLED BY [facility] Dec 29, 2016 [facility] VISIT ESTABLISHED PATIENT Dec 29, 2016 INSTRUCTIONS MEDICATIONS ADMINISTERED No Known Medications MEDICAL [...]
--- OUTSIDE RECORDS SUMMARY | 2018-02-11 11:17 | XMS REPORT ---
Author Author TAMMY COPELAND [facility] Address [address] [place] [address] Care Team Providers Care Ultrasound Supervisor Name Role Phone TAMMY COPELAND Unavailable PROBLEMS Type Condition ICD9-CM Code VOY20-ES Code Onset Dates Condition Status SNOMED Code Problem GERD with esophagitis K21.0 Active 037550966 Problem Dyspnea on exertion R06.09 Active 43549832 Problem Essential hypertension I10 Active 57639423 Problem Allergic state, subsequent encounter T78.40XD Active 636478927 Problem Arthritis M19.90 Active 1279187 Problem Dyspnea, unspecified R06.00 Active 390439961 Problem Left upper quadrant pain R10.12 Active 026025192 Problem Hypothyroidism (acquired) E03.9 Active 670417247 Problem Chronic superficial gastritis without bleeding K29.30 Active 850828056 Problem Infraspinatus tendon tear, left, subsequent encounter S46.812D Active 9969440 Problem IRVIN (obstructive sleep apnea) G47.33 Active 27615571 Problem Supraspinatus tendon tear, left, subsequent encounter S46.812D Active 525561307 Problem Restless legs syndrome G25.81 Active 638040575 Problem Other specified hypothyroidism E03.8 Active 088320293 Problem Rupture of tendon of right shoulder S46.911A Active 734385096 Problem Bronchitis J40 Active 13073856 Problem Asthma J45.909 Active 629611178 Problem Asthma with acute exacerbation J45.901 Active 193780994 ALLERGIES No Information ENCOUNTERS Encounter Location Date Diagnosis [facility] [address] [id number] [address] Jun, [facility] [address] [id number] [address] 74[address] May, Asthma J45.909 [facility] [id number] [place] [address] 28659- 5698 May, [place] [id number] [place] [address] 16720- 4311 Apr, Pre-op evaluation Z01.818 ; Allergic state, subsequent encounter T78.40XD and BMI 45.0-49.9, adult Z68.42 [place] [address] [address]- [address] Mar, [place] [address] [address]- 3035 Mar, [facility] [address] [address] Mar, Cough R05 ; Acute nasopharyngitis J00 and BMI 45.0-49.9, adult Z68.42 [place] [address] [address]- [address]109 Mar, [place] [address] 35985- 1523 Jan, Ganglion cyst of finger of right hand M67.441 [place] [address] 87853- 2574 Dec, [place] [address] 22792- 8380 10 Dec, 2016 Change in vision H53.9 ; Arthritis M19.90 ; Essential hypertension I10 ; GERD with esophagitis K21.0 ; Hypothyroidism (acquired) E03.9 and Ganglion cyst of joint of finger of left hand M67.442 [place] [address] 14889- 6902 15 Nov, 2016 Encounter for immunization Z23 [place] [address] 25805- 6685 07 Nov, 2016 [place] [address] 26328- 5112 Sep, [place] [id number] [place] [address] 30021- 6211 Aug, [place] [address] 16701- 3912 July, Cyst of joint of right hand M25.841 [place] [address] 75651- 0560 May, [place] [address] 90769- 0066 May, Fever, unspecified R50.9 and Influenza A J10.1 [place] [address] 65881- 9341 May, Left shoulder pain, unspecified chronicity M25.512 [place] [address] 06399- 6384 Apr, [place] [address] 33858- 8061 14 Apr, 2016 Infraspinatus tendon tear, left, subsequent encounter S46.812D and Supraspinatus tendon tear, left, subsequent encounter S46.812D [place] [id number] [place] [address] 17374- 0815 Apr, [place] [id number] [place] [address] 31910- 0739 Mar, Left shoulder pain, unspecified chronicity M25.512 [place] [id number] [place] [address] 22026- 5569 Mar, [place] [address] 23516- 1643 Mar, Left shoulder pain, unspecified chronicity M25.512 [place] [id number] [place] [address] 55274- 0330 Feb, Chronic superficial gastritis without bleeding K29.30 ; Left upper quadrant pain R10.12 ; Essential hypertension I10 ; Dyspnea on exertion R06.09 and Palpitations R00.2 [facility] [id number] [place] [address] 82545- 4590 Jan, Colon polyps K63.5 [facility] [id number] [place] [address] 31460- 8796 Jan, Colon polyps K63.5 [facility] [address] 45505- 2242 Dec, [facility] [id number] [place] [address] 32435 -3241 Dec, GERD with esophagitis K21.0 [place] [address] 62586- 0036 Nov, Arthritis pain M19.90 ; Colon polyps K63.5 ; Seasonal allergic rhinitis due to pollen J30.1 and Encounter for immunization Z23 [place] [address] 27583- 2842 Nov, [place] [address] 04654- 6283 Oct, [place] [address] 17540- 7368 Sep, [facility] [address] 66611- 5023 July, [place] [address] 33277- 1757 July, [place] [id number] [place] [address] 05240- 5748 July, Asthma with acute exacerbation J45.901 and Bronchitis J40 [place] [address] 88630- 3157 Jun, [place] [address] 23321- 1558 May, Other specified hypothyroidism E03.8 and 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 [facility] [id number] [place] [address] 12625- 0393 Apr, [facility] [address] 06675- 0945 Apr, Sacroiliac joint pain M53.3 [facility] [address] 12316- 5570 Mar, Other specified hypothyroidism E03.8 ; Restless legs syndrome G25.81 ; Asthma with acute exacerbation J45.901 and Bronchitis J40 [facility] [address] 08164 -3528 Feb, Upper respiratory symptom R09.89 [place] [address] 04043- 6531 Feb, Restless leg G25.81 and Asthma J45.909 [facility] [address] 69484- 5285 Dec, Rupture of tendon of right shoulder S46.911A [place] [address] 37435- 6968 Dec, Sacroiliac joint pain M53.3 [facility] [id number] [place] [address] 20622- 4037 Nov, [place] [address] 36086- 0368 Nov, Lumbago of lumbosacaral region with sciatica 724.2 and Sacroiliitis 720.2 [place] [address] 17029- 9430 Nov, Influenza vaccine administered V04.81 [facility] [id number] [place] [address] 82734- 9762 Nov, [facility] [address] 54458- 6921 21 Nov, 2014 [facility] [id number] [place] [address] 49497- 8279 18 Nov, 2014 Thyroid function test abnormal 794.5 and Thyroid antibody positive 795.79 [facility] [id number] [place] [address] 92561- 7093 16 Nov, 2014 Hypothyroidism 244.9 ; Thyroid antibody positive 795.79 and Right shoulder pain 719.41 [facility] [id number] [place] [address] 37333- 9035 Oct, [facility] [id number] [place] [address] 69796- 6538 Oct, Thyroid function test abnormal 794.5 [facility] [id number] [place] [address] 13218- 0754 14 Oct, 2014 Hypertension 401.9 and Bilateral leg pain 729.5 [facility] [id number] [place] [address] 18269- 2489 Oct, [facility] [id number] [place] [address] 06374- 7896 Oct, Bilateral leg pain 729.5 and Hypertension 401.9 [facility] [id number] [place] [address] 91950- 3343 Sep, Bilateral leg pain 729.5 ; Hypertension 401.9 and Edema 782.3 [facility] [id number] [place] [address] 51621- 6422 Aug, Unspecified hereditary and idiopathic peripheral neuropathy 356.9 and Arthritis 716.90 [facility] [id number] [place] [address] 18878- 2019 Aug, [facility] [id number] [place] [address] 90619- 5066 July, [facility] [id number] [place] [address] 86652- 3350 Jun, [facility] [place] [facility] [address] [id number] [place] [address]- 5415 14 Jun, 2014 [facility] [place] [facility] [address] [id number] [place] [address]- 8929 13 Jun, 2014 [facility] [place] [facility] [address] [id number] [place] [address]- 6201 25 May, 2014 [facility] [place] [facility] [address] [id number] [place] [address]- 9943 May, [facility] [place] [facility] [address] [id number] [place] [address]- 6208 May, [facility] [place] [facility] [address] [id number] [place] [address]- 8440 May, [facility] [place] [facility] [address] [id number] [place] [address]- 2278 May, [facility] [place] [facility] [address] [id number] [place] [address]- 1701 16 May, 2014 [facility] [place] [facility] [address] [id number] [place] [address]- 6974 May, [facility] [place] [facility] [address] [id number] [place] [address]- 6631 May, [facility] [place] [facility] [address] [id number] [place] [address]- 0773 May, [facility] [place] [facility] [address] [id number] [place] [address]- 5735 May, [facility] [place] [facility] [address] [id number] [place] [address]- 5851 May, [facility] [place] [facility] [address] [id number] [place] [address]- 0216 Apr, [facility] [place] [facility] [address] [id number] [place] [address]- 0811 Apr, [facility] [place] [facility] [address] [id number] [place] [address]- 6254 Apr, 2014 [facility] [place] [facility] [address] [id number] [place] [address]- 5526 Apr, 2014 [facility] [place] [facility] [address] [id number] [place] [address]- 5066 Apr, 2014 [facility] [place] [facility] [address] [id number] [place] [address]- 2666 Apr, 2014 [facility] [place] [facility] [address] [id number] [place] [address]- 6746 Apr, [facility] [place] [facility] [address] [id number] [place] [address]- 4754 Apr, [facility] [place] [facility] [address] [id number] [place] [address]- 3608 Mar, [facility] [place] [facility] [address] [id number] [place] [address]- 5406 Mar, [facility] [place] [facility] [address] [id number] [place] [address]- 5952 Mar, [facility] [place] [facility] [address] [id number] [place] [address]- 3464 Mar, [facility] [place] [facility] [address] [facility] [id number] [place] [address]- 0418 Mar, [facility] [place] [facility] [address] [id number] [place] [address]- 9540 Mar, [facility] [place] [facility] [address] [id number] [place] [address]- 0142 Feb, [facility] [place] [facility] [address] [id number] [place] [address]- 3935 Feb, [facility] [place] [facility] [address] [id number] [place] [address]- 0150 Feb, [facility] [place] [facility] [address] [id number] [place] [address]- 5352 Feb, [facility] [place] [facility] [address] [id number] [place] [address]- 6614 Feb, [facility] [place] [facility] [address] [id number] [place] [address]- 8928 Feb, [facility] [place] [facility] [address] [id number] [place] [address]- 4190 Feb, [facility] [place] [facility] [address] [id number] [place] [address]- 4186 Feb, [facility] [place] [facility] [address] [id number] [place] [address]- 2105 Feb, [facility] [place] [facility] [address] [id number] [place] [address]- 1796 Feb, [facility] [place] [facility] [address] [id number] [place] [address]- 5300 Feb, [facility] [place] [facility] [address] [id number] [place] [address]- 3233 Feb, [facility] [place] [facility] [address] [id number] [place] [address]- 8272 Feb, [facility] [place] [facility] [address] [id number] [place] [address]- 4196 Feb, [facility] [place] [facility] [address] [id number] [place] [address]- 2229 Feb, [facility] [place] [facility] [address] [id number] [place] [address]- 8554 Feb, [facility] [place] [facility] [address] [id number] [place] [address]- 7213 Feb, [facility] [place] [facility] [address] [id number] [place] [address]- 6730 Feb, [facility] [place] [facility] [address] [id number] [place] 0882 Feb, [facility] [place] [facility] [address] [id number] [place] [address]- 7627 Feb, [facility] [place] [facility] [address] [id number] [place] 0719 Feb, [facility] [place] [facility] [address] [id number] [place] [address]- 9399 Feb, [facility] [place] [facility] [address] [id number] [place] 2073 Feb, [facility] [place] [facility] [address] [id number] [place] [address]- 7769 Jan, [facility] [place] [facility] [address] [id number] [place] [address]- 6268 Jan, [facility] [place] [facility] [address] [id number] [place] [address]- 7441 Jan, [facility] [place] [facility] [address] [id number] [place] [address]- 6206 Jan, [facility] [place] [facility] [address] [id number] [place] [address]- 8369 Jan, [facility] [place] [facility] [address] [id number] [place] [address]- 9241 Jan, [facility] [place] [facility] [address] [id number] [place] [address]- 0129 Jan, [facility] [place] [facility] [address] [id number] [place] [address]- 7480 Jan, [facility] [place] [facility] [address] [id number], [place] [address]- 7946 Jan, [facility] [place] [facility] [address] [id number] [place] [address]- 2588 Dec, [facility] [place] [facility] [address] [id number] [place] [address]- 8879 Dec, [facility] [place] [facility] [address] [id number] [place] [address]- 9530 Dec, [facility] [place] [facility] [address] [id number] [place] [address]- 8876 Dec, 2013 [facility] [place] [facility] [address] [id number] [place] [address]- 7972 Dec, [facility] [place] [facility] [address] [id number] [place] [address]- 9342 Dec, 2013 [facility] [place] [facility] [address] [id number] [place] [address]- 3965 Dec, [facility] [place] [facility] [address] [id number] [place] [address]- 6397 Dec, [facility] [place] [facility] [address] [id number] [place] [address]- 2318 Dec, [facility] [place] [facility] [address] [id number] [place] [address]- 8400 Dec, [facility] [place] [facility] [address] [id number] [place] [address]- 4570 30 Nov, 2013 [facility] [place] [facility] [address] [id number] [place] [address]- 8335 30 Nov, 2013 [facility] [place] [facility] [address] [id number] [place] [address]- 7185 12 Nov, 2013 [facility] [place] [facility] [address] [id number] [place] [address]- 6112 12 Nov, 2013 [facility] [place] [facility] [address] [id number] [place] [address]- 2540 12 Nov, 2013 [facility] [place] [facility] [address] [id number] [place] [address]- 2540 12 Nov, 2013 [facility] [place] [facility] [address] [id number] [place] [address]- 7887 11 Nov, 2013 [facility] [place] [facility] [address] [id number] [place] [address]- 2542 11 Nov, 2013 [facility] [place] [facility] [address] [id number] [place] [address]- 9889 Nov, [facility] [place] [facility] [address] [id number] [place] [address]- 9990 Nov, [facility] [place] [facility] [address] [id number] [place] [address]- 0964 Oct, [facility] [place] [facility] [address] [id number] [place] [address]- 2072 Oct, [facility] [place] [facility] [address] [id number] [place] [address]- 1336 Oct, [facility] [place] [facility] [address] [id number] [place] [address]- 9246 Oct, [facility] [place] [facility] [address] [id number] [place] [address]- 2556 Oct, [facility] [place] [facility] [address] [id number] [place] [address]- 9301 Oct, [facility] [place] [facility] [address] [id number] [place] [address]- 3017 Oct, [facility] [place] [facility] [address] [id number] [place] [address]- 9349 Oct, [facility] [place] [facility] [address] [id number] [place] [address]- 3026 Oct, [facility] [place] [facility] [address] [id number] [place] [address]- 6720 Oct, [facility] [place] [facility] [address] [id number] [place] [address]- 1582 Sep, [facility] [place] [facility] [address] [id number] [place] [address]- 8571 Sep, [facility] [place] [facility] [address] [id number] [place] [address]- 5425 Aug, [facility] [place] [facility] [address] [id number] [place] [address]- 8715 Aug, [facility] [place] [facility] [address] [id number], [place] [address]- 1005 Aug, [facility] [place] [facility] [address] [id number] [place] [address]- 9618 Aug, [facility] [place] [facility] [address] [id number] [place] [address]- 7388 Aug, [facility] [place] [facility] [address] [id number] [place] [address]- 0042 Aug, [facility] [place] [facility] [address] [id number] [place] [address]- 2213 Aug, [facility] [place] [facility] [address] [id number] [place] [address]- 9832 Aug, [facility] [place] [facility] [address] [id number] [place] [address]- 2016 Aug, [facility] [place] [facility] [address] [id number] [place] [address]- 7290 Aug, [facility] [place] [facility] [address] [id number] [place] [address]- 2566 Aug, [facility] [place] [facility] [address] [id number] [place] [address]- 3462 Aug, [facility] [place] [facility] [address] [id number] [place] [address]- 8507 July, [facility] [place] [facility] [address] [id number] [place] [address]- 2322 July, [facility] [place] [facility] [address] [id number] [place] [address]- 3962 July, [facility] [place] [facility] [address] [id number] [place] [address]- 4595 July, [facility] [place] [facility] [address] [id number] [place] [address]- 5207 July, [facility] [place] [facility] [address] [id number] [place] [address]- 6293 July, [facility] [place] [facility] [address] [id number] [place] [address]- 5107 July, [facility] [place] [facility] [address] [id number] [place] [address]- 3283 July, [facility] [place] [facility] [address] [id number] [place] [address]- 7107 Jun, [facility] [place] [facility] [address] [id number] [place] [address]- 5600 Jun, [facility] [place] [facility] [address] [id number] [place] [address]- 8079 May, [facility] [place] [facility] [address] [id number] [place] [address]- 1210 May, [facility] [place] [facility] [address] [id number] [place] [address]- 6152 May, [facility] [place] [facility] [address] [id number] [place] [address]- 7465 May, [facility] [place] [facility] [address] [id number] [place] [address]- 6871 May, [facility] [place] [facility] [address] [id number] [place] [address]- 6449 May, [facility] [place] [facility] [address] [id number] [place] [address]- 5565 May, [facility] [place] [facility] [address] [id number] [place] [address]- 4219 May, [facility] [place] [facility] [address] [id number] [place] [address]- 9262 Apr, [facility] [place] [facility] [address] [id number] [place] [address]- 1242 Apr, [facility] [place] [facility] [address] [id number] [place] [address]- 3367 Apr, [facility] [place] [facility] [address] [id number] [place] [address] Apr, [facility] [address] [id number] [place] [address] Apr, [facility] [address] [id number] [place] [address] Apr, [facility] [address] [id number] [place] [address] Apr, [facility] [place] [facility] [address] [id number] [place] [address] Apr, [facility] [address] [id number] [place] [address] Mar, [facility] [address] [id number] [place] [address] Mar, [facility] [address] [id number] [place] [address] Mar, [facility] [address] [id number] [place] [address] Mar, [facility] [address] [id number] [place] [address] 47[address] Mar, [facility] [address] [id number] [place] [address] Mar, [facility] [address] [id number], [place] [address] Mar, [facility] [place] [facility] [address] [id number], [place] [address] Mar, [facility] [place] [facility] [address] [id number], [place] [address] Mar, [facility] [place] [facility] [address] [id number], [place] [address] Mar, [facility] [place] [facility] [address] [id number], [place] [address] Feb, [facility] [place] [facility] [address] [id number] [place] [address]- [address] 09 Feb, 2013 [facility] [place] [facility] [address] [id number] [place] [address]- [address] Feb, [facility] [place] [facility] [address] [id number] [place] [address] Feb, [facility] [place] [facility] [address] [id number] [place] [address]- [address] Jan, [facility] [place] [facility] [address] [id number] [place] [address] Jan, [facility] [place] [facility] [address] [id number] [place] [address]- [address] Dec, [facility] [place] [facility] [address] [id number] [place] [address]- [address] 30 Dec, 2012 [facility] [place] [facility] [address] [id number] [place] [address]- [address] Dec, [facility] [place] [facility] [address] [id number] [place] [address]- [address] Dec, [facility] [place] [facility] [address] [id number] [place] [address]- 69[address] Dec, [facility] [place] [facility] [address] [id number] [place] [address] 18 Dec, 2012 [facility] [place] [facility] [address] [id number] [place] [address]- [address] 14 Dec, 2012 [facility] [place] [facility] [address] [id number] [place] [address]- [address]15 14 Dec, 2012 [facility] [place] [facility] [address] [id number] [place] [address]- [address] Dec, [facility] [place] [facility] [address] [id number] [place] [address]- [address] Dec, [facility] [place] [facility] [address] [id number] [place] [address]- 9528 Dec, [facility] [place] [facility] [address] [id number] [place] [address] Dec, [facility] [place] [facility] [address] [id number] [place] [address]448 Dec, [facility] [place] [facility] [address] [id number] [place] [address] 27[address] Nov, [facility] [place] [facility] [address] [id number] [place] [address]- [address] Nov, [facility] [place] [facility] [address] [id number] [place] [address] Nov, [facility] [place] [facility] [address] [id number] [place] [address]- [address] Nov, [facility] [place] [facility] [address] [id number] [place] [address]- 2967 Nov, [facility] [place] [facility] [address] [id number] [place] [address] Oct, [facility] [place] [facility] [address] [id number] [place] [address] Oct, [facility] [place] [facility] [address] [id number] [place] [address]- [address]93 Oct, [facility] [place] [facility] [address] [id number], [place] [address] Oct, [facility] [place] [facility] [address] [id number], [place] [address] Oct, [facility] [place] [facility] [address] [id number] [place] [address]- 2970 Oct, [facility] [place] [facility] [address] [id number], [place] [address] Oct, [facility] [place] [facility] [address] [id number] [place] [address]- [address] Sep, [facility] [place] [facility] [address] [id number] [place] [address]- [address] Sep, [facility] [address] [id number] [place] [address] Sep, [facility] [address] [id number] [place] [address] 3316 Aug, [facility] [address] [id number] [place] [address]- [address]774 Aug, [facility] [address] [id number] [place] [address]- [address]297 Aug, [facility] [address] [id number] [place] [address] Aug, [facility] [address] [id number] [place] [address] July, [facility] [address] [id number] [place] [address] July, [facility] [address] [id number] [place] [address] July, [facility] [address] [id number] [place] [address] July, [facility] [address] [id number] [place] [address] Jun, [facility] [address] [id number] [place] [address] Jun, [facility] [address] [id number] [place] [address] May, [facility] [place] [facility] [address] [id number] [place] [address] May, [facility] [place] [facility] [address] [id number] [id number] [address] Apr, [facility] [address] [id number] [place] [address] Apr, [facility] [place] [facility] [address] [id number] [place] [address] Feb, [facility] [place] [facility] [address] [id number] [place] [address] Feb, [facility] [place] [facility] [address] [id number] [place] [address] Feb, [facility] [place] [facility] [address] [id number] [place] [address] Feb, [facility] [place] [facility] [address] [id number] [place] [address] Feb, [facility] [place] [facility] [address] [id number] [place] [address] Feb, [facility] [place] [facility] [address] [id number] [place] [address] Jan, [facility] [place] [facility] [address] [id number] [place] [address] Jan, [facility] [place] [facility] [address] [id number] [place] [address] Jan, [facility] [place] [facility] [address] [id number] [place] [address] Jan, [facility] [place] [facility] [address] [id number] [place] [address] Jan, [facility] [place] [facility] [address] [id number] [place] [address] Jan, [facility] [place] [facility] [address] [id number] [place] [address] Jan, [facility] [place] [facility] [address] [id number] [place] [address] Jan, [facility] [place] [facility] [address] [id number] [place] [address] 15 Jan, 2012 [facility] [place] [facility] [address] [id number], [place] [address] Jan, [facility] [place] [facility] [address] [id number] [place] [address] Jan, [facility] [place] [facility] [address] [id number] [place] [address] Jan, [facility] [place] [facility] [address] [id number] [place] [address] Jan, [facility] [place] [facility] [address] [id number] [place] [address] Dec, [facility] [place] [facility] [address] [id number] [place] [address] Dec, [facility] [place] [facility] [address] [id number] [place] [address] Dec, [facility] [place] [facility] [address] [id number] [place] [address] Dec, [facility] [place] [facility] [address] [id number] [place] [address] Dec, [facility] [place] [facility] [address] [id number] [place] [address] Dec, [facility] [place] [facility] [address] [facility] [id number] [place] [address] Dec, [facility] [place] [facility] [address] [id number], [place] [address] Nov, [facility] [place] [facility] [address] [id number], [place] [address] Nov, [facility] [place] [facility] [address] [id number] [place] [address] Oct, [facility] [place] [facility] [address] [id number] [place] [address] Oct, [facility] [place] [facility] [address] [facility] [id number] [place] [address]68 Sep, [facility] [place] [facility] [address] [id number] [place] [address] 16 Sep, 2011 [facility] [address] [id number] [place] [address] Sep, [facility] [place] [facility] [address] [id number] [place] [address] Sep, [facility] [address] [id number] [place] [address] July, [facility] [address] [id number] [place] [address] 2869 July, [facility] [address] [id number] [place] [address] July, [facility] [address] [id number] [place] [address]201 Jun, [facility] [address] [id number] [place] [address]449 Jun, [facility] [address] [id number] [place] [address] Jun, [facility] [address] [id number] [place] [address]- 27[address] Jun, [facility] [address] [id number] [place] [address] 9131 Jun, [facility] [place] [facility] [address] [id number] [place] [address] 5774 Jun, [facility] [address] [id number] [place] [address] 6826 Jun, [facility] [place] [facility] [address] [id number] [place] [address] Jun, [facility] [place] [facility] [address] [id number] [place] [address] 8566 Jun, [facility] [place] [facility] [address] [id number] [place] [address] 85[address] May, [facility] [place] [facility] [address] [id number] [place] [address] 99[address] May, [facility] [place] [facility] [address] [id number] [place] [address] 7286 May, [facility] [place] [facility] [address] [id number] [place] [address] 2910 May, [facility] [place] [facility] [address] [id number] [place] [address] 6[address] May, [facility] [place] [facility] [address] [id number] [place] [address] 1740 Apr, [facility] [place] [facility] [address] [id number] [place] [address] Mar, [facility] [place] [facility] [address] [id number] [place] [address] 38[address] Mar, [facility] [place] [facility] [address] [id number] [place] [address] 5439 Feb, [facility] [place] [facility] [address] [id number] [place] [address] 57[address] Feb, [facility] [place] [facility] [address] [id number] [place] [address] Feb, [facility] [place] [facility] [address] [id number], [place] [address] Jan, [facility] [place] [facility] [address] [id number], [place] [address]- 7816 Dec, [facility] [place] [facility] [address] [id number] [place] [address]- 9225 Dec, [facility] [place] [facility] [address] [id number] [place] [address]- 4197 Dec, [facility] [place] [facility] [address] [id number] [place] [address]- 1410 July, [facility] [place] [facility] [address] [id number] [place] [address]- 1680 18 May, 2010 [facility] [address] [id number] [place] [address]- 5169 Feb, [facility] [place] [facility] [address] [id number] [place] [address] 15 Feb, 2010 [facility] [place] [facility] [address] [id number] [place] [address]- 6856 Feb, [facility] [place] [facility] [address] [id number] [place] [address]- 7459 Jan, [facility] [place] [facility] [address] [id number] [place] [address]- 9476 Dec, [facility] [place] [facility] [address] [id number] [place] [address]- 8288 Dec, [facility] [address] [id number] [place] [address]- 0847 Oct, [facility] [place] [facility] [address] [id number] [place] [address]- 7459 July, [facility] [place] [facility] [address] [id number] [place] [address]- 2448 Apr, [facility] [place] [facility] [address] [id number] [place] [address]- 6349 Mar, [facility] [place] [facility] [address] [id number] [place] [address]- 5178 Feb, [facility] [place] [facility] [address] [id number] [place] [address]- 3286 Feb, [facility] [place] [facility] [address] [id number] [place] [address]- 7455 Feb, [facility] [place] [facility] [address] [id number] [place] [address]- 0816 Feb, [facility] [place] [facility] [address] [id number] [place] [address]- 8600 Feb, [facility] [address] [facility] [id number] [address] Jan, [facility] [address] [facility] [id number], [place] [address]- 9[address] Jan, [facility] [address] [facility] [id number], [place] [address]- 17[address] Dec, [facility] [address] [facility] [id number], [place] [address]- [address] Nov, IMMUNIZATIONS Vaccine Route Administration Date Status FLUARIX QUAD (3 AND UP) 2017 IM Intramuscular Dec 04, 2016 Administered SOCIAL HISTORY Never Assessed REASON FOR VISIT Flu shot-AME Back PLAN OF CARE VITAL SIGNS MEDICATIONS Unknown Medications RESULTS No Results PROCEDURES Procedure Date Ordered Result Body Site FLUARIX QUAD (3 & UP)-GSK-2014Dec 04, 2016 SINGLE IMMUNIZATION ADMIN Dec 04, 2016 INSTRUCTIONS MEDICATIONS ADMINISTERED No Known Medications [...]
--- OUTSIDE RECORDS SUMMARY | 2018-02-11 11:18 | XMS REPORT ---
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 Name Role Phone TAMMY COPELAND Unavailable PROBLEMS Type Condition ICD9-CM Code VTX04-PG Code Onset Dates Condition Status SNOMED Code Problem GERD with esophagitis K21.0 Active 910970620 Problem Dyspnea on exertion R06.09 Active 68771202 Problem Essential hypertension I10 Active 36088959 Problem Allergic state, subsequent encounter T78.40XD Active 820861182 Problem Arthritis M19.90 Active 2832032 Problem Dyspnea, unspecified R06.00 Active 648131038 Problem Left upper quadrant pain R10.12 Active 804237002 Problem Hypothyroidism (acquired) E03.9 Active 781026641 Problem Chronic superficial gastritis without bleeding K29.30 Active 589568073 Problem Infraspinatus tendon tear, left, subsequent encounter S46.812D Active 9519642 Problem IRVIN (obstructive sleep apnea) G47.33 Active 96775508 Problem Supraspinatus tendon tear, left, subsequent encounter S46.812D Active 360955142 Problem Restless legs syndrome G25.81 Active 638481365 Problem Other specified hypothyroidism E03.8 Active 420397418 Problem Rupture of tendon of right shoulder S46.911A Active 802207711 Problem Bronchitis J40 Active 44661222 Problem Asthma J45.909 Active 756357808 Problem Asthma with acute exacerbation J45.901 Active 085817608 ALLERGIES No Information ENCOUNTERS Encounter Location Date Diagnosis [facility] [address] [address] Jun, [facility] [id number] [address] May, Asthma J45.909 [facility] [id number] [place] [address] 58413- 4827 May, [place] [id number] [place] [address] 44037- 0889 Apr, Pre-op evaluation Z01.818 ; Allergic state, subsequent encounter T78.40XD and BMI 45.0-49.9, adult Z68.42 [place] [address] [address]- 7387 Mar, [place] [address] [address]18- 1641 Mar, [facility] [address] [address] Mar, Cough R05 ; Acute nasopharyngitis J00 and BMI 45.0-49.9, adult Z68.42 [place] [address] 03296- 5788 Mar, [place] [address] 57985- 9069 Jan, Ganglion cyst of finger of right hand M67.441 [place] [address] 19850- 9856 Dec, [place] [address] 8[address]48- 1617 10 Dec, 2016 Change in vision H53.9 ; Arthritis M19.90 ; Essential hypertension I10 ; GERD with esophagitis K21.0 ; Hypothyroidism (acquired) E03.9 and Ganglion cyst of joint of finger of left hand M67.442 [place] [address] 24051- 7981 15 Nov, 2016 Encounter for immunization Z23 [place] [address] [address]45- 6815 07 Nov, 2016 [place] [address] 07081- 6337 Sep, [place] [id number] [place] [address] 49547- 3923 Aug, [place] [address] 91395- 1730 July, Cyst of joint of right hand M25.841 [place] [address] 31304- 3207 May, [place] [address] 45736- 5408 May, Fever, unspecified R50.9 and Influenza A J10.1 [place] [address] 66704- 6773 May, Left shoulder pain, unspecified chronicity M25.512 [place] [address] 47231- 7483 Apr, [place] [address] 47450- 7062 14 Apr, 2016 Infraspinatus tendon tear, left, subsequent encounter S46.812D and Supraspinatus tendon tear, left, subsequent encounter S46.812D [place] [id number] [place] [address] 75454- 6702 Apr, [place] [id number] [place] [address] 22366- 9011 Mar, Left shoulder pain, unspecified chronicity M25.512 [place] [id number] [place] [address] 65233- 5361 Mar, [place] [address] 76419- 4853 Mar, Left shoulder pain, unspecified chronicity M25.512 [place] [id number] [place] [address] 47961- 4069 Feb, Chronic superficial gastritis without bleeding K29.30 ; Left upper quadrant pain R10.12 ; Essential hypertension I10 ; Dyspnea on exertion R06.09 and Palpitations R00.2 [facility] [id number] [place] [address] 18581- 8461 Jan, Colon polyps K63.5 [facility] [id number] [place] [address] 09759- 2817 Jan, Colon polyps K63.5 [facility] [address] 04472- 8980 Dec, [facility] [id number] [place] [address] 49785 -3383 Dec, GERD with esophagitis K21.0 [place] [address] 61484- 2470 Nov, Arthritis pain M19.90 ; Colon polyps K63.5 ; Seasonal allergic rhinitis due to pollen J30.1 and Encounter for immunization Z23 [place] [address] 67902- 2989 Nov, [place] [address] 67480- 1018 Oct, [place] [address] 90423- 9722 Sep, [facility] [address] 36003- 9863 July, [place] [address] 09195- 0924 July, [place] [id number] [place] [address] 07510- 7266 July, Asthma with acute exacerbation J45.901 and Bronchitis J40 [place] [address] 92041- 8146 Jun, [place] [address] 19903- 7716 May, Other specified hypothyroidism E03.8 and 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 [address] 51250 -9862 Feb, Upper respiratory symptom R09.89 [place] [address] 58038- 7984 Feb, Restless leg G25.81 and Asthma J45.909 [facility] [address] 43599- 8198 Dec, Rupture of tendon of right shoulder S46.911A [place] [address] 22697- 4257 Dec, Sacroiliac joint pain M53.3 [facility] [id number] [place] [address] 51089- 1492 Nov, [place] [address] 75847- 9443 Nov, Lumbago of lumbosacaral region with sciatica 724.2 and Sacroiliitis 720.2 [place] [address] 02234- 5795 Nov, Influenza vaccine administered V04.81 [facility] [id number] [place] [address] 12492- 3290 Nov, [facility] [address] 95538- 2195 21 Nov, 2014 [facility] [id number] [place] [address] 82692- 5246 18 Nov, 2014 Thyroid function test abnormal 794.5 and Thyroid antibody positive 795.79 [facility] [id number] [place] [address] 41689- 5312 16 Nov, 2014 Hypothyroidism 244.9 ; Thyroid antibody positive 795.79 and Right shoulder pain 719.41 [facility] [id number] [place] [address] 35515- 2703 Oct, [facility] [id number] [place] [address] 58784- 4501 Oct, Thyroid function test abnormal 794.5 [facility] [id number] [place] [address] 30444- 1211 14 Oct, 2014 Hypertension 401.9 and Bilateral leg pain 729.5 [facility] [id number] [place] [address] 97481- 3458 Oct, [facility] [id number] [place] [address] 94828- 2541 Oct, Bilateral leg pain 729.5 and Hypertension 401.9 [facility] [id number] [place] [address] 74016- 5064 Sep, Bilateral leg pain 729.5 ; Hypertension 401.9 and Edema 782.3 [facility] [id number] [place] [address] 57161- 4204 Aug, Unspecified hereditary and idiopathic peripheral neuropathy 356.9 and Arthritis 716.90 [facility] [id number] [place] [address] 87457- 0210 Aug, [facility] [id number] [place] [address] 85235- 8520 July, [facility] [id number] [place] [address] 97897- 9713 Jun, [facility] [place] [facility] [address] [id number] [place] [address]- 3759 14 Jun, 2014 [facility] [place] [facility] [address] [id number] [place] [address]- 2488 13 Jun, 2014 [facility] [place] [facility] [address] [id number] [place] [address]- 6091 25 May, 2014 [facility] [place] [facility] [address] [id number] [place] [address]- 9550 May, [facility] [place] [facility] [address] [id number] [place] [address]- 5315 May, [facility] [place] [facility] [address] [id number] [place] [address]- 0439 May, [facility] [place] [facility] [address] [id number] [place] [address]- 4105 May, [facility] [place] [facility] [address] [id number] [place] [address]- 9661 16 May, 2014 [facility] [place] [facility] [address] [id number] [place] [address]- 6775 May, [facility] [place] [facility] [address] [id number] [place] [address]- 3759 May, [facility] [place] [facility] [address] [id number] [place] [address]- 9002 May, [facility] [place] [facility] [address] [id number] [place] [address]- 8010 May, [facility] [place] [facility] [address] [id number] [place] [address]- 6694 May, [facility] [place] [facility] [address] [id number] [place] [address]- 6730 Apr, [facility] [place] [facility] [address] [id number] [place] [address]- 7440 Apr, [facility] [place] [facility] [address] [id number] [place] [address]- 2282 Apr, 2014 [facility] [place] [facility] [address] [id number] [place] [address]- 8886 Apr, 2014 [facility] [place] [facility] [address] [id number] [place] [address]- 4266 Apr, 2014 [facility] [place] [facility] [address] [id number] [place] [address]- 6656 Apr, 2014 [facility] [place] [facility] [address] [id number] [place] [address]- 5780 Apr, [facility] [place] [facility] [address] [id number] [place] [address]- 8846 Apr, [facility] [place] [facility] [address] [id number] [place] [address]- 0098 Mar, [facility] [place] [facility] [address] [id number] [place] [address]- 6179 Mar, [facility] [place] [facility] [address] [id number] [place] [address]- 9604 Mar, [facility] [place] [facility] [address] [id number] [place] [address]- 6670 Mar, [facility] [place] [facility] [address] [facility] [id number] [place] [address]- 4144 Mar, [facility] [place] [facility] [address] [id number] [place] [address]- 2104 Mar, [facility] [place] [facility] [address] [id number] [place] [address]- 1914 Feb, [facility] [place] [facility] [address] [id number] [place] [address]- 9629 Feb, [facility] [place] [facility] [address] [id number] [place] [address]- 5807 Feb, [facility] [place] [facility] [address] [id number] [place] [address]- 6756 Feb, [facility] [place] [facility] [address] [id number] [place] [address]- 6233 Feb, [facility] [place] [facility] [address] [id number] [place] [address]- 8656 Feb, [facility] [place] [facility] [address] [id number] [place] [address]- 2261 Feb, [facility] [place] [facility] [address] [id number] [place] [address]- 8464 Feb, [facility] [place] [facility] [address] [id number] [place] [address]- 0291 Feb, [facility] [place] [facility] [address] [id number] [place] [address]- 9280 Feb, [facility] [place] [facility] [address] [id number] [place] [address]- 7948 Feb, [facility] [place] [facility] [address] [id number] [place] [address]- 2545 Feb, [facility] [place] [facility] [address] [id number] [place] [address]- 2415 Feb, [facility] [place] [facility] [address] [id number] [place] [address]- 3232 Feb, [facility] [place] [facility] [address] [id number] [place] [address]- 8337 Feb, [facility] [place] [facility] [address] [id number] [place] [address]- 3312 Feb, [facility] [place] [facility] [address] [id number] [place] [address]- 3998 Feb, [facility] [place] [facility] [address] [id number] [place] [address]- 4037 Feb, [facility] [place] [facility] [address] [id number] [place] 4112 Feb, [facility] [place] [facility] [address] [id number] [place] [address]- 4218 Feb, [facility] [place] [facility] [address] [id number] [place] 9460 Feb, [facility] [place] [facility] [address] [id number] [place] [address]- 8602 Feb, [facility] [place] [facility] [address] [id number] [place] 8786 Feb, [facility] [place] [facility] [address] [id number] [place] [address]- 5923 Jan, [facility] [place] [facility] [address] [id number] [place] [address]- 8209 Jan, [facility] [place] [facility] [address] [id number] [place] [address]- 8087 Jan, [facility] [place] [facility] [address] [id number] [place] [address]- 8860 Jan, [facility] [place] [facility] [address] [id number] [place] [address]- 7572 Jan, [facility] [place] [facility] [address] [id number] [place] [address]- 0190 Jan, [facility] [place] [facility] [address] [id number] [place] [address]- 0238 Jan, [facility] [place] [facility] [address] [id number] [place] [address]- 1148 Jan, [facility] [place] [facility] [address] [id number] [address]- 7522 Jan, [facility] [place] [facility] [address] [id number] [place] [address]- 1728 Dec, [facility] [place] [facility] [address] [id number] [place] [address]- 7426 Dec, [facility] [place] [facility] [address] [id number] [place] [address]- 9254 Dec, [facility] [place] [facility] [address] [id number] [place] [address]- 8003 Dec, 2013 [facility] [place] [facility] [address] [id number] [place] [address]- 3459 Dec, [facility] [place] [facility] [address] [id number] [place] [address]- 8657 Dec, 2013 [facility] [place] [facility] [address] [id number] [place] [address]- 8236 Dec, [facility] [place] [facility] [address] [id number] [place] [address]- 9035 Dec, [facility] [place] [facility] [address] [id number] [place] [address]- 5838 Dec, [facility] [place] [facility] [address] [id number] [place] [address]- 5677 Dec, [facility] [place] [facility] [address] [id number] [place] [address]- 2693 30 Nov, 2013 [facility] [place] [facility] [address] [id number] [place] [address]- 5529 30 Nov, 2013 [facility] [place] [facility] [address] [id number] [place] [address]- 6378 12 Nov, 2013 [facility] [place] [facility] [address] [id number] [place] [address]- 2362 12 Nov, 2013 [facility] [place] [facility] [address] [id number] [place] [address]- 2547 12 Nov, 2013 [facility] [place] [facility] [address] [id number] [place] [address]- 2540 12 Nov, 2013 [facility] [place] [facility] [address] [id number] [place] [address]- 7549 11 Nov, 2013 [facility] [place] [facility] [address] [id number] [place] [address]- 2547 11 Nov, 2013 [facility] [place] [facility] [address] [id number] [place] [address]- 1090 Nov, [facility] [place] [facility] [address] [id number] [place] [address]- 9106 Nov, [facility] [place] [facility] [address] [id number] [place] [address]- 7380 Oct, [facility] [place] [facility] [address] [id number] [place] [address]- 2442 Oct, [facility] [place] [facility] [address] [id number] [place] [address]- 9245 Oct, [facility] [place] [facility] [address] [id number] [place] [address]- 4460 Oct, [facility] [place] [facility] [address] [id number] [place] [address]- 2485 Oct, [facility] [place] [facility] [address] [id number] [place] [address]- 1514 Oct, [facility] [place] [facility] [address] [id number] [place] [address]- 5800 Oct, [facility] [place] [facility] [address] [id number] [place] [address]- 4691 Oct, [facility] [place] [facility] [address] [id number] [place] [address]- 6403 Oct, [facility] [place] [facility] [address] [id number] [place] [address]- 3588 Oct, [facility] [place] [facility] [address] [id number] [place] [address]- 5666 Sep, [facility] [place] [facility] [address] [id number] [place] [address]- 3801 Sep, [facility] [place] [facility] [address] [id number] [place] [address]- 5784 Aug, [facility] [place] [facility] [address] [id number] [place] [address]- 2360 Aug, [facility] [place] [facility] [address] [id number] [address]- 1469 Aug, [facility] [place] [facility] [address] [id number] [place] [address]- 1755 Aug, [facility] [place] [facility] [address] [id number] [place] [address]- 8492 Aug, [facility] [place] [facility] [address] [id number] [place] [address]- 7525 Aug, [facility] [place] [facility] [address] [id number] [place] [address]- 0694 Aug, [facility] [place] [facility] [address] [id number] [place] [address]- 2773 Aug, [facility] [place] [facility] [address] [id number] [place] [address]- 9995 Aug, [facility] [place] [facility] [address] [id number] [place] [address]- 5007 Aug, [facility] [place] [facility] [address] [id number] [place] [address]- 6662 Aug, [facility] [place] [facility] [address] [id number] [place] [address]- 4547 Aug, [facility] [place] [facility] [address] [id number] [place] [address]- 4021 July, [facility] [place] [facility] [address] [id number] [place] [address]- 8375 July, [facility] [place] [facility] [address] [id number] [place] [address]- 5097 July, [facility] [place] [facility] [address] [id number] [place] [address]- 4332 July, [facility] [place] [facility] [address] [id number] [place] [address]- 7458 July, [facility] [place] [facility] [address] [id number] [place] [address]- 3350 July, [facility] [place] [facility] [address] [id number] [place] [address]- 7290 July, [facility] [place] [facility] [address] [id number] [place] [address]- 8235 July, [facility] [place] [facility] [address] [id number] [place] [address]- 1565 Jun, [facility] [place] [facility] [address] [id number] [place] [address]- 6044 Jun, [facility] [place] [facility] [address] [id number] [place] [address]- 8802 May, [facility] [place] [facility] [address] [id number] [place] [address]- 0327 May, [facility] [place] [facility] [address] [id number] [place] [address]- 3821 May, [facility] [place] [facility] [address] [id number] [place] [address]- [address] May, [facility] [place] [facility] [address] [id number] [place] [address] May, [facility] [place] [facility] [address] [id number] [place] [address] May, [facility] [place] [facility] [address] [id number] [place] [address] May, [facility] [place] [facility] [address] [id number] [place] [address] May, [facility] [place] [facility] [address] [id number] [place] [address] Apr, [facility] [place] [facility] [address] [id number] [place] [address] Apr, [facility] [place] [facility] [address] [id number] [place] [address] Apr, [facility] [place] [facility] [address] [id number] [place] [address] Apr, [facility] [address] [id number] [place] [address] Apr, [facility] [address] [id number] [place] [address] Apr, [facility] [address] [id number] [place] [address] Apr, [facility] [place] [facility] [address] [id number] [place] [address] Apr, [facility] [address] [id number] [place] [address] Mar, [facility] [address] [id number] [place] [address] Mar, [facility] [address] [id number] [place] [address] Mar, [facility] [address] [id number] [place] [address]- [address] Mar, [facility] [address] [id number] [place] [address] Mar, [facility] [address] [id number] [place] [address]- [address] Mar, [facility] [address] [id number] [address] Mar, [facility] [place] [facility] [address] [id number], [place] [address] Mar, [facility] [place] [facility] [address] [id number], [place] [address] Mar, [facility] [place] [facility] [address] [id number], [place] [address] Mar, [facility] [place] [facility] [address] [id number], [place] [address] Feb, [facility] [place] [facility] [address] [id number] [place] [address] 09 Feb, 2013 [facility] [place] [facility] [address] [id number] [place] [address]- [address] Feb, [facility] [place] [facility] [address] [id number] [place] [address] Feb, [facility] [place] [facility] [address] [id number] [place] [address]- [address] Jan, [facility] [place] [facility] [address] [id number] [place] [address]- [address] Jan, [facility] [place] [facility] [address] [id number] [place] [address]- [address] Dec, [facility] [place] [facility] [address] [id number] [place] [address] 30 Dec, 2012 [facility] [place] [facility] [address] [id number] [place] [address]- [address] Dec, [facility] [place] [facility] [address] [id number] [place] [address]- [address] Dec, [facility] [place] [facility] [address] [id number] [place] [address]- [address] Dec, [facility] [place] [facility] [address] [id number] [place] [address]- [address] 18 Dec, 2012 [facility] [place] [facility] [address] [id number] [place] [address]- [address] 14 Dec, 2012 [facility] [place] [facility] [address] [id number] [place] [address]- [address] 14 Dec, 2012 [facility] [place] [facility] [address] [id number] [place] [address]- [address] Dec, [facility] [place] [facility] [address] [id number] [place] [address]- [address] Dec, [facility] [place] [facility] [address] [id number] [place] [address]- [address] Dec, [facility] [place] [facility] [address] [id number] [place] [address]- [address] Dec, [facility] [place] [facility] [address] [id number] [place] [address]- [address] Dec, [facility] [place] [facility] [address] [id number] [place] [address]- [address] Nov, [facility] [place] [facility] [address] [id number] [place] [address]- [address] Nov, [facility] [place] [facility] [address] [id number] [place] [address]- [address] Nov, [facility] [place] [facility] [address] [id number] [place] [address]- [address] Nov, [facility] [place] [facility] [address] [id number] [place] [address]- [address] Nov, [facility] [place] [facility] [address] [id number] [place] [address]- [address] Oct, [facility] [place] [facility] [address] [id number] [place] [address]- [address] Oct, [facility] [place] [facility] [address] [id number] [place] [address]- [address] Oct, [facility] [place] [facility] [address] [id number], [place] [address] Oct, [facility] [place] [facility] [address] [id number] [address] Oct, [facility] [place] [facility] [address] [id number] [place] [address] Oct, [facility] [place] [facility] [address] [id number], [place] [address] Oct, [facility] [place] [facility] [address] [id number] [place] [address] Sep, [facility] [place] [facility] [address] [id number] [place] [address] Sep, [facility] [address] [id number] [place] [address] Sep, [facility] [address] [id number] [place] [address] Aug, [facility] [address] [id number] [place] [address]28 Aug, [facility] [address] [id number] [place] [address] Aug, [facility] [address] [id number] [place] [address]60 Aug, [facility] [address] [id number] [place] [address] July, [facility] [address] [id number] [place] [address] July, [facility] [address] [id number] [place] [address] 7137 July, [facility] [address] [id number] [place] [address]268 July, [facility] [address] [id number] [place] [address] Jun, [facility] [address] [id number] [place] [address]47 Jun, [facility] [address] [id number] [place] [address] May, [facility] [place] [facility] [address] [id number] [place] [address]- [address]181 May, [facility] [place] [facility] [address] [id number] [place] [address] Apr, [facility] [address] [id number] [place] [address]- 2899 Apr, [facility] [place] [facility] [address] [id number] [place] [address]- 2604 Feb, [facility] [place] [facility] [address] [id number] [place] [address]- [address] Feb, [facility] [place] [facility] [address] [id number] [place] [address] Feb, [facility] [place] [facility] [address] [id number] [place] [address]- [address] Feb, [facility] [place] [facility] [address] [id number] [place] [address]- 7445 Feb, [facility] [place] [facility] [address] [id number] [place] [address]- 8477 Feb, [facility] [place] [facility] [address] [id number] [place] [address]- 7925 Jan, [facility] [place] [facility] [address] [id number] [place] [address]- 36[address] Jan, [facility] [place] [facility] [address] [id number] [place] [address]- [address]957 Jan, [facility] [place] [facility] [address] [id number] [place] [address] Jan, [facility] [place] [facility] [address] [id number] [place] [address]- 7857 Jan, [facility] [place] [facility] [address] [id number] [place] [address]- 0668 Jan, [facility] [place] [facility] [address] [id number] [place] [address]- [address] Jan, [facility] [place] [facility] [address] [id number] [place] [address]- 8346 Jan, [facility] [place] [facility] [address] [id number] [place] [address]- [address]58 15 Jan, 2012 [facility] [place] [facility] [address] [id number], [place] [address] Jan, [facility] [place] [facility] [address] [id number] [place] [address]- 8667 Jan, [facility] [place] [facility] [address] [id number] [place] [address]- 8155 Jan, [facility] [place] [facility] [address] [id number] [place] [address]- 7629 Jan, [facility] [place] [facility] [address] [id number] [place] [address]- 2961 Dec, [facility] [place] [facility] [address] [id number] [place] [address] Dec, [facility] [place] [facility] [address] [id number] [place] [address] Dec, [facility] [place] [facility] [address] [id number] [place] [address]- 8518 Dec, [facility] [place] [facility] [address] [id number] [place] [address] Dec, [facility] [place] [facility] [address] [id number] [place] [address]- [address]335 Dec, [facility] [place] [facility] [address] [facility] [id number] [place] [address]- [address] Dec, [facility] [place] [facility] [address] [id number], [place] [address] Nov, [facility] [place] [facility] [address] [id number], [place] [address] Nov, [facility] [place] [facility] [address] [id number] [place] [address]- 6976 Oct, [facility] [place] [facility] [address] [id number] [place] [address]- 7344 Oct, [facility] [place] [facility] [address] [facility] [id number] [place] [address]- 1622 Sep, [facility] [place] [facility] [address] [id number] [place] [address]- 9513 16 Sep, 2011 [facility] [address] [id number] [place] [address]- [address] Sep, [facility] [place] [facility] [address] [id number] [place] [address]46 Sep, [facility] [address] [id number] [place] [address]- 6236 July, [facility] [address] [id number] [place] [address]- 6542 July, [facility] [address] [id number] [place] [address]- 5149 July, [facility] [address] [id number] [place] [address]- [address]182 Jun, [facility] [address] [id number] [place] [address]- 3949 Jun, [facility] [address] [id number] [place] [address]- 4436 Jun, [facility] [address] [id number] [place] [address]- 2834 Jun, [facility] [address] [id number] [place] [address]- 7147 Jun, [facility] [place] [facility] [address] [id number] [place] [address]- 5629 Jun, [facility] [address] [id number] [place] [address]- 7545 Jun, [facility] [place] [facility] [address] [id number] [place] [address]- 4774 Jun, [facility] [place] [facility] [address] [id number] [place] [address]- 5186 Jun, [facility] [place] [facility] [address] [id number] [place] [address]- 5674 May, [facility] [place] [facility] [address] [id number] [place] [address]- 1166 May, [facility] [place] [facility] [address] [id number] [place] [address] 1948 May, [facility] [place] [facility] [address] [id number] [place] [address]- 6408 May, [facility] [place] [facility] [address] [id number] [place] [address]- 5899 May, [facility] [place] [facility] [address] [id number] [place] [address]- 6551 Apr, [facility] [place] [facility] [address] [id number] [place] [address]- 5505 Mar, [facility] [place] [facility] [address] [id number] [place] [address]- 1119 Mar, [facility] [place] [facility] [address] [id number] [place] [address]- 7417 Feb, [facility] [place] [facility] [address] [id number] [place] [address]- 7951 Feb, [facility] [place] [facility] [address] [id number] [place] [address]- 1611 Feb, [facility] [place] [facility] [address] [id number], [place] [address]- [address] Jan, [facility] [place] [facility] [address] [id number], [place] [address]- 8454 Dec, [facility] [place] [facility] [address] [id number] [place] [address]- 5146 Dec, [facility] [place] [facility] [address] [id number] [place] [address]- 7870 Dec, [facility] [place] [facility] [address] [id number] [place] [address]- 2013 July, [facility] [place] [facility] [address] [id number] [place] [address]- 1469 18 May, 2010 [facility] [address] [id number] [place] [address]- [address]505 Feb, [facility] [place] [facility] [address] [id number] [place] [address] 15 Feb, 2010 [facility] [place] [facility] [address] [id number] [place] [address]- 9426 Feb, [facility] [place] [facility] [address] [id number] [place] [address]- 5913 Jan, [facility] [place] [facility] [address] [id number] [place] [address]- 9428 Dec, [facility] [place] [facility] [address] [id number] [place] [address]- 1368 Dec, [facility] [address] [id number] [place] [address]- 8127 Oct, [facility] [place] [facility] [address] [id number] [place] [address]- 6738 July, [facility] [place] [facility] [address] [id number] [place] [address]- 7819 Apr, [facility] [place] [facility] [address] [id number] [place] [address]- 0504 Mar, [facility] [place] [facility] [address] [id number] [place] [address]- 6904 Feb, [facility] [place] [facility] [address] [id number] [place] [address]- 8776 Feb, [facility] [place] [facility] [address] [id number] [place] [address]- 4304 Feb, [facility] [place] [facility] [address] [id number] [place] [address]- 1036 Feb, [facility] [place] [facility] [address] [id number] [place] [address]- 1193 Feb, [facility] [address] [facility] [id number], [place] [address]- 2041 Jan, [facility] [address] [facility] [id number], [place] [address]- 5865 Jan, [facility] [address] [id number] [address]- [address] Dec, [facility] [address] [id number] [address] Nov, IMMUNIZATIONS No Known Immunizations SOCIAL HISTORY Never Assessed REASON FOR VISIT Referral to Dr Velazco PLAN OF CARE VITAL SIGNS MEDICATIONS Unknown [...]
--- OUTSIDE RECORDS SUMMARY | 2018-02-11 11:19 | XMS REPORT ---
Author Author TAMMY [facility] Address [address] [place] [address] Care Team Providers Care Cook Chili Name Role Phone CARLEEArabella TAMMY Unavailable PROBLEMS Type Condition ICD9-CM Code [id number] Code Onset Dates Condition Status SNOMED Code Problem GERD with esophagitis K21.0 Active 418899494 Problem Dyspnea on exertion R06.09 Active 65016123 Problem Essential hypertension I10 Active 83885015 Problem Allergic state, subsequent encounter T78.40XD Active 665028427 Problem Arthritis M19.90 Active 6137029 Problem Dyspnea, unspecified R06.00 Active 040534023 Problem Left upper quadrant pain R10.12 Active 286015817 Problem Hypothyroidism (acquired) E03.9 Active 812960071 Problem Chronic superficial gastritis without bleeding K29.30 Active 620202614 Problem Infraspinatus tendon tear, left, subsequent encounter S46.812D Active 6251056 Problem IRVIN (obstructive sleep apnea) G47.33 Active 61344833 Problem Supraspinatus tendon tear, left, subsequent encounter S46.812D Active 555141336 Problem Restless legs syndrome G25.81 Active 103000103 Problem Other specified hypothyroidism E03.8 Active 240587651 Problem Rupture of tendon of right shoulder S46.911A Active 114776191 Problem Bronchitis J40 Active 93381028 Problem Asthma J45.909 Active 273818377 Problem Asthma with acute exacerbation J45.901 Active [id number] ALLERGIES No Information ENCOUNTERS Encounter Location Date Diagnosis [facility] [address] [facility] [id number] [address] Aug, [facility] [address] [id number], [place] [address] July, [facility] [address] [id number], [place] [address] Jun, [place] [id number] [place] [address] 95750- 9291 May, Asthma J45.909 [place] [address] [address]94- 7666 May, [place] [address] [address]81- 3528 Apr, Pre-op evaluation Z01.818 ; Allergic state, subsequent encounter T78.40XD and BMI 45.0-49.9, adult Z68.42 [place] [address] [address]- 5328 Mar, [place] [address] 40862- 0679 Mar, [facility] [address] [address] Mar, Cough R05 ; Acute nasopharyngitis J00 and BMI 45.0-49.9, adult Z68.42 [place] [address] [address]- 4052 Mar, [place] [address] 09030- 9515 Jan, Ganglion cyst of finger of right hand M67.441 [place] [address] 69232- 9755 Dec, [place] [id number] [place] [address] 26265- 6573 10 Dec, 2016 Change in vision H53.9 ; Arthritis M19.90 ; Essential hypertension I10 ; GERD with esophagitis K21.0 ; Hypothyroidism (acquired) E03.9 and Ganglion cyst of joint of finger of left hand M67.442 [place] [id number] [place] [address] 17869- 6658 15 Nov, 2016 Encounter for immunization Z23 [place] [address], [place] [address] Nov, [facility] [id number] [place] [address] 89321- 1159 Sep, [facility] [id number] [place] [address] 29713- 5179 Aug, [facility] [id number] [place] [address] 38553- 3110 July, Cyst of joint of right hand M25.841 [facility] [id number] [place] [address] 05811- 6026 May, [place] [id number] [place] [address] 85325- 7602 May, Fever, unspecified R50.9 and Influenza A J10.1 [place] [id number] [place] [address] 28784- 9111 May, Left shoulder pain, unspecified chronicity M25.512 [place] [id number] [place] [address] 17006- 5231 Apr, [place] [id number] [place] [address] 35591- 8170 Apr, Infraspinatus tendon tear, left, subsequent encounter S46.812D and Supraspinatus tendon tear, left, subsequent encounter S46.812D [facility] [id number] [place] [address] 07098- 2003 Apr, [facility] [id number] [place] [address] 62212- 8327 Mar, Left shoulder pain, unspecified chronicity M25.512 [facility] [address] [id number] [address] 80[address] Mar, [facility] [id number] [place] [address] 84266- 2429 Mar, Left shoulder pain, unspecified chronicity M25.512 [facility] [id number] [place] [address] 46457- 1932 Feb, Chronic superficial gastritis without bleeding K29.30 ; Left upper quadrant pain R10.12 ; Essential hypertension I10 ; Dyspnea on exertion R06.09 and Palpitations R00.2 [place] [address] 76834- 1150 Jan, Colon polyps K63.5 [place] [address] 06652- 3670 Jan, Colon polyps K63.5 [place] [address] 91615- 5880 Dec, [facility] [address] [address] Dec, GERD with esophagitis K21.0 [place] [address] 56309- 5012 Nov, Arthritis pain M19.90 ; Colon polyps K63.5 ; Seasonal allergic rhinitis due to pollen J30.1 and Encounter for immunization Z23 [place] [address] 83328- 8887 Nov, [place] [address] 68882- 5826 Oct, [place] [address] 00609- 8180 Sep, [place] [address] 44864- 3383 July, [place] [address] 90623- 2129 July, [place] [id number] [place] [address] 54740- 7569 July, Asthma with acute exacerbation J45.901 and Bronchitis J40 [place] [id number] [place] [address] 44793- 9834 Jun, [facility] [address] 00914- 8839 May, Other specified hypothyroidism E03.8 and 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 [place] [address] 98372- 4189 Apr, [place] [address] 95373- 1369 Apr, Sacroiliac joint pain M53.3 [place] [address] 92057- 8542 Mar, Other specified hypothyroidism E03.8 ; Restless legs syndrome G25.81 ; Asthma with acute exacerbation J45.901 and Bronchitis J40 [facility] [id number] [place] [address] 08363 -4019 Feb, Upper respiratory symptom R09.89 [place] [address] 89101- 8761 Feb, Restless leg G25.81 and Asthma J45.909 [place] [id number] [place] [address] 01814- 8075 Dec, Rupture of tendon of right shoulder S46.911A [place] [id number] [place] [address] 03616- 3349 Dec, Sacroiliac joint pain M53.3 [place] [id number] [place] [address] 51911- 8282 Nov, [place] [address] 90514- 0097 Nov, Lumbago of lumbosacaral region with sciatica 724.2 and Sacroiliitis 720.2 [place] [address] 78661- 6283 Nov, Influenza vaccine administered V04.81 [facility] [id number] [place] [address] 13636- 9465 Nov, [facility] [id number] [place] [address] 64638- 5256 Nov, [facility] [id number] [place] [address] 32220- 1202 Nov, Thyroid function test abnormal 794.5 and Thyroid antibody positive 795.79 [place] [id number] [place] [address] 58164- 7562 16 Nov, 2014 Hypothyroidism 244.9 ; Thyroid antibody positive 795.79 and Right shoulder pain 719.41 [place] [id number] [place] [address] 81230- 0518 Oct, [place] [id number] [place] [address] 99825- 4853 Oct, Thyroid function test abnormal 794.5 [place] [id number] [place] [address] 04950- 3362 14 Oct, 2014 Hypertension 401.9 and Bilateral leg pain 729.5 [place] [id number] [place] [address] 75678- 0873 Oct, [place] [id number] [place] [address] 71401- 0836 Oct, Bilateral leg pain 729.5 and Hypertension 401.9 [place] [id number] [place] [address] 86945- 1334 Sep, Bilateral leg pain 729.5 ; Hypertension 401.9 and Edema 782.3 [place] [id number] [place] [address] 98133- 7759 Aug, Unspecified hereditary and idiopathic peripheral neuropathy 356.9 and Arthritis 716.90 [place] [id number] [place] [address] 12803- 3043 Aug, [facility] [place] [facility] [address] [id number] [place] [address]- 7631 July, [facility] [place] [facility] [address] [id number] [place] [address]- 8023 Jun, [facility] [place] [facility] [address] [id number] [place] [address]- 5375 Jun, [facility] [place] [facility] [address] [id number] [place] [address]- 7822 Jun, [facility] [place] [facility] [address] [id number] [place] [address]- 3719 May, [facility] [place] [facility] [address] [id number] [place] [address]- 5265 May, [facility] [place] [facility] [address] [id number] [place] [address]- 4645 May, [facility] [place] [facility] [address] [id number] [place] [address]- 0854 May, [facility] [place] [facility] [address] [id number] [place] [address]- 1058 May, [facility] [place] [facility] [address] [id number] [place] [address]- 2900 May, [facility] [place] [facility] [address] [id number] [place] [address]- 3919 May, [facility] [place] [facility] [address] [id number] [place] [address]- 7018 May, [facility] [place] [facility] [address] [id number] [place] [address]- 2160 May, [facility] [place] [facility] [address] [id number] [place] [address]- 1161 May, [facility] [place] [facility] [address] [id number] [place] [address]- 4196 May, [facility] [place] [facility] [address] [id number] [place] [address]- 5411 Apr, 2014 [facility] [place] [facility] [address] [id number] [place] [address]- 4715 Apr, 2014 [facility] [place] [facility] [address] [id number] [place] [address]- 4636 Apr, 2014 [facility] [place] [facility] [address] [id number] [place] [address]- 0636 Apr, 2014 [facility] [place] [facility] [address] [id number] [place] [address]- 2880 Apr, 2014 [facility] [place] [facility] [address] [id number] [place] [address]- 8270 Apr, 2014 [facility] [place] [facility] [address] [id number] [place] [address]- 2985 Apr, [facility] [place] [facility] [address] [id number] [place] [address]- 5195 Apr, [facility] [place] [facility] [address] [id number] [place] [address]- 3569 Mar, [facility] [place] [facility] [address] [id number] [place] [address]- 1578 Mar, [facility] [place] [facility] [address] [facility] [id number] [place] [address]- 2719 Mar, [facility] [place] [facility] [address] [id number] [place] [address]- 8612 Mar, [facility] [place] [facility] [address] [id number], [place] [address]- 9176 Mar, [facility] [place] [facility] [address] [id number] [place] [address]- 4642 Mar, [facility] [place] [facility] [address] [facility] [id number] [place] [address]- 2768 Feb, [facility] [place] [facility] [address] [id number] [place] 2181 Feb, [facility] [place] [facility] [address] [id number] [place] [address]- 6817 Feb, [facility] [place] [facility] [address] [id number] [place] [address]- 2500 Feb, [facility] [place] [facility] [address] [id number] [place] [address]- 4285 Feb, [facility] [place] [facility] [address] [id number] [place] [address]- 2369 Feb, [facility] [place] [facility] [address] [id number] [place] [address]- 9190 Feb, [facility] [place] [facility] [address] [id number] [place] [address]- 5541 Feb, [facility] [place] [facility] [address] [id number] [place] [address]- 7242 Feb, [facility] [place] [facility] [address] [id number] [place] [address]- 7796 Feb, [facility] [place] [facility] [address] [id number] [place] [address]- 1558 Feb, [facility] [place] [facility] [address] [id number] [place] [address]- 6325 Feb, [facility] [place] [facility] [address] [id number] [place] [address]- 0805 18 Feb, 2014 [facility] [place] [facility] [address] [id number] [place] [address]- 7025 15 Feb, 2014 [facility] [place] [facility] [address] [id number] [place] [address]- 6576 15 Feb, 2014 [facility] [place] [facility] [address] [id number] [place] [address]- 7279 Feb, [facility] [place] [facility] [address] [id number] [place] [address]- 1252 10 Feb, 2014 [facility] [place] [facility] [address] [id number] [place] [address]- 2988 Feb, [facility] [place] [facility] [address] [id number] [place] 5174 Feb, [facility] [place] [facility] [address] [id number] [place] [address]- 3660 Feb, [facility] [place] [facility] [address] [id number] [place]- 7348 Feb, [facility] [place] [facility] [address] [id number] [place] 4321 Feb, [facility] [place] [facility] [address] [id number] [place] 5955 Feb, [facility] [place] [facility] [address] [id number] [place] [address]- 4066 Jan, [facility] [place] [facility] [address] [id number] [place] [address]- 9850 Jan, [facility] [place] [facility] [address] [id number] [place] [address]- 7639 Jan, [facility] [place] [facility] [address] [id number] [place] [address]- 7057 Jan, [facility] [place] [facility] [address] [id number] [place] [address]- 6926 Jan, [facility] [place] [facility] [address] [id number] [place] [address]- 0819 Jan, [facility] [place] [facility] [address] [id number], [place] [address]- 0967 Jan, [facility] [place] [facility] [address] [id number] [place] [address]- 5970 Jan, [facility] [place] [facility] [address] [id number] [place] [address]- 5408 Jan, [facility] [place] [facility] [address] [id number] [place] [address]- 6868 Dec, [facility] [place] [facility] [address] [id number] [place] [address]- 0518 Dec, 2013 [facility] [place] [facility] [address] [id number] [place] [address]- 8920 Dec, 2013 [facility] [place] [facility] [address] [id number] [place] [address]- 2080 Dec, 2013 [facility] [place] [facility] [address] [id number] [place] [address]- 3270 Dec, 2013 [facility] [place] [facility] [address] [id number] [place] [address]- 2349 Dec, 2013 [facility] [place] [facility] [address] [id number] [place] [address]- 1785 Dec, 2013 [facility] [place] [facility] [address] [id number] [place] [address]- 8703 Dec, 2013 [facility] [place] [facility] [address] [id number] [place] [address]- 8689 Dec, 2013 [facility] [place] [facility] [address] [id number] [place] [address]- 4007 Dec, [facility] [place] [facility] [address] [id number] [place] [address]- 4125 30 Nov, 2013 [facility] [place] [facility] [address] [id number] [place] [address]- 9808 30 Nov, 2013 [facility] [place] [facility] [address] [id number] [place] [address]- 8790 12 Nov, 2013 [facility] [place] [facility] [address] [id number] [place] [address]- 6448 12 Nov, 2013 [facility] [place] [facility] [address] [id number] [place] [address]- 1363 12 Nov, 2013 [facility] [place] [facility] [address] [id number] [place] [address]- 5438 12 Nov, 2013 [facility] [place] [facility] [address] [id number] [place] [address]- 2518 Nov, [facility] [place] [facility] [address] [id number] [place] [address]- 7052 Nov, [facility] [place] [facility] [address] [id number] [place] [address]- 2752 Nov, [facility] [place] [facility] [address] [id number] [place] [address]- 7128 Nov, [facility] [place] [facility] [address] [id number] [place] [address]- 2979 Oct, [facility] [place] [facility] [address] [id number] [place] [address]- 0173 Oct, [facility] [place] [facility] [address] [id number] [place] [address]- 0128 Oct, [facility] [place] [facility] [address] [id number] [place] [address]- 8642 Oct, [facility] [place] [facility] [address] [id number] [place] [address]- 4202 Oct, [facility] [place] [facility] [address] [id number] [place] [address]- 0466 Oct, [facility] [place] [facility] [address] [id number] [place] [address]- 4572 Oct, [facility] [place] [facility] [address] [id number] [place] [address]- 2521 Oct, [facility] [place] [facility] [address] [id number] [place] [address]- 1667 Oct, [facility] [place] [facility] [address] [id number] [place] [address]- 5892 Oct, [facility] [place] [facility] [address] [id number] [place] [address]- 3700 Sep, [facility] [place] [facility] [address] [id number] [place] [address]- 5983 Sep, [facility] [place] [facility] [address] [id number] [place] [address]- 5869 Aug, [facility] [place] [facility] [address] [id number] [place] [address]- 9460 Aug, [facility] [place] [facility] [address] [id number] [place] [address]- 8103 Aug, [facility] [place] [facility] [address] [id number] [place] [address]- 2087 Aug, [facility] [place] [facility] [address] [id number] [place] [address]- 2791 Aug, [facility] [place] [facility] [address] [id number] [place] [address]- 7254 Aug, [facility] [place] [facility] [address] [id number] [place] [address]- 6760 Aug, [facility] [place] [facility] [address] [id number] [place] [address]- 8364 Aug, [facility] [place] [facility] [address] [id number] [place] [address]- 4236 Aug, [facility] [place] [facility] [address] [id number] [place] [address]- 7704 Aug, [facility] [place] [facility] [address] [id number] [place] [address]- 0065 Aug, [facility] [place] [facility] [address] [id number] [place] [address]- 1683 Aug, [facility] [place] [facility] [address] [id number] [place] [address]- 5132 July, [facility] [place] [facility] [address] [id number] [place] [address]- 0079 July, [facility] [place] [facility] [address] [id number] [place] [address]- 2067 July, [facility] [place] [facility] [address] [id number] [place] [address]- 2039 July, [facility] [place] [facility] [address] [id number] [place] [address]- 5744 July, [facility] [place] [facility] [address] [id number] [place] [address]- 0830 July, [facility] [place] [facility] [address] [id number] [place] [address]- 6813 July, [facility] [place] [facility] [address] [id number] [place] [address]- 0492 July, [facility] [place] [facility] [address] [id number] [place] [address] Jun, [facility] [place] [facility] [address] [id number] [place] [address] Jun, [facility] [place] [facility] [address] [id number] [place] [address] May, [facility] [place] [facility] [address] [id number] [place] [address] May, [facility] [place] [facility] [address] [id number] [place] [address] May, [facility] [place] [facility] [address] [id number] [place] [address] May, [facility] [place] [facility] [address] [id number] [place] [address] May, [facility] [place] [facility] [address] [id number] [place] [address] May, [facility] [place] [facility] [address] [id number] [place] [address] May, [facility] [place] [facility] [address] [id number] [place] [address] May, [facility] [place] [facility] [address] [id number] [place] [address] Apr, [facility] [place] [facility] [address] [id number] [place] [address] Apr, [facility] [address] [id number] [place] [address] Apr, [facility] [place] [facility] [address] [id number] [place] [address] Apr, [facility] [place] [facility] [address] [id number] [place] [address] Apr, [facility] [place] [facility] [address] [id number] [place] [address] Apr, [facility] [place] [facility] [address] [id number] [place] [address] Apr, [facility] [place] [facility] [address] [id number] [place] [address]- [address] Apr, [facility] [place] [facility] [address] [facility] [id number] [place] [address] Mar, [facility] [place] [facility] [address] [id number] [place] [address] Mar, [facility] [place] [facility] [address] [id number] [place] [address] Mar, [facility] [place] [facility] [address] [facility] [id number] [place] [address] Mar, [facility] [place] [facility] [address] [id number], [place] [address] Mar, [facility] [place] [facility] [address] [id number], [place] [address] Mar, [facility] [place] [facility] [address] [id number], [place] [address] Mar, [facility] [place] [facility] [address] [facility] [id number], [place] [address] Mar, [facility] [place] [facility] [address] [facility] [id number], [place] [address] Mar, [facility] [place] [facility] [address] [id number] [place] [address] Mar, [facility] [place] [facility] [address] [id number] [place] [address] Feb, [facility] [place] [facility] [address] [id number] [place] [address] Feb, [facility] [place] [facility] [address] [id number] [place] [address]- [address] Feb, [facility] [place] [facility] [address] [id number] [place] [address]- [address] Feb, [facility] [place] [facility] [address] [id number] [place] [address] Jan, [facility] [place] [facility] [address] [id number] [place] [address] Jan, [facility] [place] [facility] [address] [id number] [place] [address] 30 Dec, 2012 [facility] [place] [facility] [address] [id number] [place] [address]- [address] 30 Dec, 2012 [facility] [place] [facility] [address] [id number] [place] [address]- [address] 28 Dec, 2012 [facility] [place] [facility] [address] [id number] [place] [address]- [address] 28 Dec, 2012 [facility] [place] [facility] [address] [id number] [place] [address]- [address] 18 Dec, 2012 [facility] [place] [facility] [address] [id number] [place] [address]- [address] 18 Dec, 2012 [facility] [place] [facility] [address] [id number] [place] [address]- [address] 14 Dec, 2012 [facility] [place] [facility] [address] [id number] [place] [address]- [address] 14 Dec, 2012 [facility] [place] [facility] [address] [id number] [place] [address] Dec, [facility] [place] [facility] [address] [id number] [place] [address]- [address] Dec, [facility] [place] [facility] [address] [id number] [place] [address]- [address] Dec, [facility] [place] [facility] [address] [id number] [place] [address]- [address] Dec, [facility] [place] [facility] [address] [id number] [place] [address]- [address] Dec, [facility] [place] [facility] [address] [id number] [place] [address]- [address] Nov, [facility] [place] [facility] [address] [id number] [place] [address]- [address] Nov, [facility] [place] [facility] [address] [id number] [place] [address]- [address] Nov, [facility] [place] [facility] [address] [id number] [place] [address]- [address] Nov, [facility] [place] [facility] [address] [id number] [place] [address]- [address] Nov, [facility] [place] [facility] [address] [id number] [place] [address] Oct, [facility] [place] [facility] [address] [id number][place] [address] Oct, [facility] [place] [facility] [address] [id number], [place] [address] Oct, [facility] [place] [facility] [address] [id number] [place] [address] Oct, [facility] [place] [facility] [address] [id number], [place] [address] Oct, [facility] [place] [facility] [address] [id number] [place] [address] Oct, [facility] [place] [facility] [address] [id number] [place] [address] Oct, [facility] [address] [id number] [place] [address] Sep, [facility] [place] [facility] [address] [id number] [place] [address] Sep, [facility] [address] [id number] [place] [address]- [address] Sep, [facility] [place] [facility] [address] [id number] [place] [address] Aug, [facility] [address] [id number] [place] [address] 1989 Aug, [facility] [address] [id number] [place] [address]- [address]165 Aug, [facility] [address] [id number] [place] [address] Aug, [facility] [address] [id number] [place] [address]- [address] July, [facility] [address] [id number] [place] [address]- 1873 July, [facility] [address] [id number] [place] [address]- [address]272 July, [facility] [address] [id number] [place] [address]- [address] July, [facility] [place] [facility] [address] [id number] [place] [address] 9317 Jun, [facility] [place] [facility] [address] [id number] [place] [address]- 4[address] Jun, [facility] [place] [facility] [address] [id number] [place] [address]- [address] May, [facility] [place] [facility] [address] [id number] [place] [address]- 9294 May, [facility] [place] [facility] [address] [id number] [place] [address]- [address]60 Apr, [facility] [place] [facility] [address] [id number] [place] [address]- 6446 Apr, [facility] [place] [facility] [address] [id number] [place] [address]- 9053 Feb, [facility] [place] [facility] [address] [id number] [place] [address]- 450[address] Feb, [facility] [place] [facility] [address] [id number] [place] 2004 Feb, [facility] [place] [facility] [address] [id number] [place] [address]- [address] Feb, [facility] [place] [facility] [address] [id number] [place] [address]- 5956 Feb, [facility] [place] [facility] [address] [id number] [place] [address]- [address] Feb, [facility] [place] [facility] [address] [id number] [place] [address]- 68[address] Jan, [facility] [place] [facility] [address] [id number] [place] [address]- 4407 Jan, [facility] [place] [facility] [address] [id number] [place] [address]- 5314 Jan, [facility] [place] [facility] [address] [id number] [place] [address]- 4371 Jan, [facility] [place] [facility] [address] [id number] [place] [address]- 7610 Jan, [facility] [place] [facility] [address] [id number] [place] [address]- 9646 Jan, [facility] [place] [facility] [address] [id number] [place] [address] Jan, [facility] [place] [facility] [address] [id number], [place] [address] Jan, [facility] [place] [facility] [address] [id number] [place] [address]- [address] Jan, [facility] [place] [facility] [address] [id number] [address] Jan, [facility] [place] [facility] [address] [facility] [id number] [place] [address]- [address]10 Jan, [facility] [place] [facility] [address] [id number], [place] [address]- [address]65 Jan, [facility] [place] [facility] [address] [id number] [place] [address]- 9651 Jan, [facility] [place] [facility] [address] [id number] [place] [address]- 4068 Dec, [facility] [place] [facility] [address] [id number], [place] [address] Dec, [facility] [place] [facility] [address] [id number], [place] [address]- 87[address] Dec, [facility] [place] [facility] [address] [id number], [place] [address]- [address] Dec, [facility] [place] [facility] [address] [facility] [id number], [place] [address]- [address] Dec, [facility] [place] [facility] [address] [id number], [place] [address]- [address] Dec, [facility] [place] [facility] [address] [facility] [id number], [place] [address]- [address]874 Dec, [facility] [place] [facility] [address] [id number], [place] [address]- [address] Nov, [facility] [place] [facility] [address] [id number], [place] [address]- [address] Nov, [facility] [place] [facility] [address] [facility] [id number], [place] [address]- [address] Oct, [facility] [place] [facility] [address] [id number] [place] [address]- [address]15 Oct, [facility] [address] [id number] [place] [address]- [address]386 Sep, [facility] [place] [facility] [address] [id number] [place] [address]- 5086 Sep, [facility] [address] [id number] [place] [address]- 2791 Sep, [facility] [place] [facility] [address] [id number] [place] [address]- 2703 Sep, [facility] [address] [id number] [place] [address]- 8709 July, [facility] [address] [id number] [place] [address]- 6631 July, [facility] [address] [id number] [place] [address]- 0141 July, [facility] [address] [id number] [place] [address]- 9720 Jun, [facility] [place] [facility] [address] [id number] [place] [address]- 9942 Jun, [facility] [address] [id number] [place] [address]- 2145 Jun, [facility] [place] [facility] [address] [id number] [place] [address]- 2529 16 Jun, 2011 [facility] [place] [facility] [address] [id number] [place] [address]- 4840 13 Jun, 2011 [facility] [place] [facility] [address] [id number] [place] [address]- 8768 10 Jun, 2011 [facility] [place] [facility] [address] [id number] [place] [address]- 9546 Jun, [facility] [place] [facility] [address] [id number] [place] [address]- 1850 Jun, [facility] [place] [facility] [address] [id number] [place] [address]- 9630 Jun, [facility] [place] [facility] [address] [id number] [place] [address]- 3226 May, [facility] [place] [facility] [address] [id number] [place] [address]- 5975 May, [facility] [place] [facility] [address] [id number] [place] [address]- 4065 May, [facility] [place] [facility] [address] [id number] [place] [address]- 4376 May, [facility] [place] [facility] [address] [id number] [place] [address]- 1172 May, [facility] [place] [facility] [address] [id number] [place] [address]- 3775 Apr, [facility] [place] [facility] [address] [id number] [place] [address]- 5624 Mar, [facility] [place] [facility] [address] [id number] [place] [address]- 7563 Mar, [facility] [place] [facility] [address] [facility] [id number] [place] [address]- 5558 Feb, [facility] [place] [facility] [address] [id number], [place] [address]- 1851 Feb, [facility] [place] [facility] [address] [id number], [place] [address]- 5841 Feb, [facility] [place] [facility] [address] [id number] [place] [address]- 0247 Jan, [facility] [place] [facility] [address] [id number] [place] [address]- 9016 Dec, [facility] [place] [facility] [address] [facility] [id number] [place] [address]- 0883 Dec, [facility] [place] [facility] [address] [id number] [place] [address]- 9902 11 Dec, 2010 [facility] [address] [id number] [place] [address]- 3853 16 Jul, 2010 [facility] [place] [facility] [address] [id number] [place] [address]- 5269 18 May, 2010 [facility] [address] [id number] [place] [address] 22 Feb, 2010 [facility] [place] [facility] [address] [id number] [place] [address]- 9419 15 Feb, 2010 [facility] [address] [id number] [place] [address]- 7343 09 Feb, 2010 [facility] [place] [facility] [address] [id number] [place] [address]- 8789 Jan, [facility] [address] [id number] [place] [address]- 1721 26 Dec, 2009 [facility] [place] [facility] [address] [id number] [place] [address]- 9424 13 Dec, 2009 [facility] [place] [facility] [address] [id number] [place] [address]- 2346 Oct, [facility] [place] [facility] [address] [id number] [place] [address]- 3178 13 Jul, 2009 [facility] [place] [facility] [address] [id number] [place] [address]- 0535 18 Apr, 2009 [facility] [place] [facility] [address] [id number] [place] [address]- 5415 Mar, [facility] [place] [facility] [address] [id number] [place] [address]- 2268 Feb, [facility] [place] [facility] [address] [id number] [place] [address]- 6307 Feb, [facility] [place] [facility] [address] [id number] [place] [address]- 0020 Feb, [facility] [address] [id number], [place] [address]- [address]336 Feb, [facility] [id number], [place] [address]- 9466 Feb, [facility] [id number], [place] [address]- 3435 Jan, [facility] [id number] [place] [address]- 0990 Jan, [facility] [id number] [place] [address]- 3289 Dec, [place] [id number] [place] [address]- 2959 Nov, IMMUNIZATIONS No Known Immunizations SOCIAL HISTORY Never Assessed REASON FOR VISIT Medication refill request PLAN OF CARE VITAL SIGNS MEDICATIONS [...]
[2018-02-11 11:20] LABS: BASOPHILS % (AUTO) 0 % (0-10); EOSINOPHILS # (AUTO) 0.2 10^3/uL (0.0-0.3); EOSINOPHILS % (AUTO) 3 % (0-10); HEMATOCRIT 37 % (40-54); HEMOGLOBIN 12.6 G/DL (13.3-17.7); LYMPHOCYTES # (AUTO) 0.8 X 10^3 (1.0-4.0); LYMPHOCYTES % (AUTO) 10 % (12-44); MEAN CORPUSCULAR HEMOGLOBIN 33 PG (25-34); MEAN CORPUSCULAR HGB CONC 34 G/DL (32-36); MEAN CORPUSCULAR VOLUME 97 FL (80-99); MEAN PLATELET VOLUME 10.6 FL (7.4-10.4); MONOCYTES # (AUTO) 0.8 X 10^3 (0.0-1.0); MONOCYTES % (AUTO) 9 % (0-12); NEUTROPHILS # (AUTO) 6.2 X 10^3 (1.8-7.8); NEUTROPHILS % (AUTO) 78 % (42-75); PLATELET COUNT 248 10^3/uL (130-400); RED BLOOD COUNT 3.81 10^6/uL (4.35-5.85); RED CELL DISTRIBUTION WIDTH 14.3 % (10.0-14.5)
--- OUTSIDE RECORDS SUMMARY | 2018-02-11 11:20 | XMS REPORT ---
Author Author TAMMY COPELAND [facility] Address [address] [place] [address] Care Team Providers Care Pulp Grinder Name Role Phone CARLEEArabella TAMMY Unavailable PROBLEMS Type Condition ICD9-CM Code [id number] Code Onset Dates Condition Status SNOMED Code Problem GERD with esophagitis K21.0 Active 394080236 Problem Dyspnea on exertion R06.09 Active 20613938 Problem Essential hypertension I10 Active 80670816 Problem Allergic state, subsequent encounter T78.40XD Active 247746529 Problem Arthritis M19.90 Active 5115263 Problem Dyspnea, unspecified R06.00 Active 173786330 Problem Left upper quadrant pain R10.12 Active 043964458 Problem Hypothyroidism (acquired) E03.9 Active 506359996 Problem Chronic superficial gastritis without bleeding K29.30 Active 614641426 Problem Infraspinatus tendon tear, left, subsequent encounter S46.812D Active 3653303 Problem IRVIN (obstructive sleep apnea) G47.33 Active 90113198 Problem Supraspinatus tendon tear, left, subsequent encounter S46.812D Active 328413915 Problem Restless legs syndrome G25.81 Active 626413715 Problem Other specified hypothyroidism E03.8 Active 328357418 Problem Rupture of tendon of right shoulder S46.911A Active 799315807 Problem Bronchitis J40 Active 44908187 Problem Asthma J45.909 Active 413642540 Problem Asthma with acute exacerbation J45.901 Active 306968410 ALLERGIES No Information ENCOUNTERS Encounter Location Date Diagnosis [facility] [address] [facility] [id number], [place] [address] Aug, [facility] [address] [id number] [address] July, [facility] [address] [id number] [address] Jun, [place] [id number] [place] [address] 76876- 2627 May, Asthma J45.909 [place] [address] [address]34- 3703 May, [place] [address] 22497- 5406 Apr, Pre-op evaluation Z01.818 ; Allergic state, subsequent encounter T78.40XD and BMI 45.0-49.9, adult Z68.42 [place] [address] 89605- 1416 Mar, [place] [address] 9[address]24- 4397 Mar, [facility] [address] [address] Mar, Cough R05 ; Acute nasopharyngitis J00 and BMI 45.0-49.9, adult Z68.42 [place] [address] [address]- 5584 Mar, [place] [address] [address]21- 4812 Jan, Ganglion cyst of finger of right hand M67.441 [place] [address] 82810- 4682 Dec, [place] [id number] [place] [address] 75281- 6142 10 Dec, 2016 Change in vision H53.9 ; Arthritis M19.90 ; Essential hypertension I10 ; GERD with esophagitis K21.0 ; Hypothyroidism (acquired) E03.9 and Ganglion cyst of joint of finger of left hand M67.442 [place] [id number] [place] [address] 54751- 8208 15 Nov, 2016 Encounter for immunization Z23 [place] [id number] [address] Nov, [facility] [id number] [place] [address] 35743- 7227 Sep, [facility] [id number] [place] [address] 36923- 3956 Aug, [facility] [id number] [place] [address] 63069- 3394 July, Cyst of joint of right hand M25.841 [facility] [id number] [place] [address] 20952- 3526 May, [place] [id number] [place] [address] 21990- 6373 May, Fever, unspecified R50.9 and Influenza A J10.1 [place] [id number] [place] [address] 60554- 1130 May, Left shoulder pain, unspecified chronicity M25.512 [place] [id number] [place] [address] 37835- 3874 Apr, [place] [id number] [place] [address] 11317- 6203 Apr, Infraspinatus tendon tear, left, subsequent encounter S46.812D and Supraspinatus tendon tear, left, subsequent encounter S46.812D [facility] [id number] [place] [address] 74515- 9845 Apr, [facility] [id number] [place] [address] 46524- 8197 Mar, Left shoulder pain, unspecified chronicity M25.512 [facility] [address] [id number] [address] 7964 Mar, [facility] [id number] [place] [address] 98903- 8894 Mar, Left shoulder pain, unspecified chronicity M25.512 [facility] [id number] [place] [address] 84844- 2985 Feb, Chronic superficial gastritis without bleeding K29.30 ; Left upper quadrant pain R10.12 ; Essential hypertension I10 ; Dyspnea on exertion R06.09 and Palpitations R00.2 [place] [address] 73798- 1156 Jan, Colon polyps K63.5 [place] [address] 14272- 3044 Jan, Colon polyps K63.5 [place] [address] 09071- 1538 Dec, [facility] [address] [address] Dec, GERD with esophagitis K21.0 [place] [address] 84756- 3575 Nov, Arthritis pain M19.90 ; Colon polyps K63.5 ; Seasonal allergic rhinitis due to pollen J30.1 and Encounter for immunization Z23 [place] [address] 50317- 0409 Nov, [place] [address] 84472- 8835 Oct, [place] [address] 18416- 1639 Sep, [place] [address] 25558- 9565 July, [place] [address] 73007- 0575 July, [place] [id number] [place] [address] 04098- 7358 July, Asthma with acute exacerbation J45.901 and Bronchitis J40 [place] [id number] [place] [address] 35662- 3913 Jun, [facility] [address] 50906- 3524 May, Other specified hypothyroidism E03.8 and 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 [id number] [place] [address] 32092 -5496 Feb, Upper respiratory symptom R09.89 [place] [address] 32697- 7247 Feb, Restless leg G25.81 and Asthma J45.909 [place] [id number] [place] [address] 08610- 6159 Dec, Rupture of tendon of right shoulder S46.911A [place] [id number] [place] [address] 03217- 7332 Dec, Sacroiliac joint pain M53.3 [place] [id number] [place] [address] 19189- 9754 Nov, [place] [address] 69133- 3184 Nov, Lumbago of lumbosacaral region with sciatica 724.2 and Sacroiliitis 720.2 [place] [address] 60763- 5735 Nov, Influenza vaccine administered V04.81 [facility] [id number] [place] [address] 25387- 4856 Nov, [facility] [id number] [place] [address] 56444- 1092 Nov, [facility] [id number] [place] [address] 24806- 7624 Nov, Thyroid function test abnormal 794.5 and Thyroid antibody positive 795.79 [place] [id number] [place] [address] 63701- 6794 16 Nov, 2014 Hypothyroidism 244.9 ; Thyroid antibody positive 795.79 and Right shoulder pain 719.41 [place] [id number] [place] [address] 28227- 9017 Oct, [place] [id number] [place] [address] 19917- 5106 Oct, Thyroid function test abnormal 794.5 [place] [id number] [place] [address] 13548- 2983 14 Oct, 2014 Hypertension 401.9 and Bilateral leg pain 729.5 [place] [id number] [place] [address] 30581- 5439 Oct, [place] [id number] [place] [address] 01282- 9761 Oct, Bilateral leg pain 729.5 and Hypertension 401.9 [place] [id number] [place] [address] 07453- 7144 Sep, Bilateral leg pain 729.5 ; Hypertension 401.9 and Edema 782.3 [place] [id number] [place] [address] 97135- 7879 Aug, Unspecified hereditary and idiopathic peripheral neuropathy 356.9 and Arthritis 716.90 [place] [id number] [place] [address] 50222- 7306 Aug, [facility] [place] [facility] [address] [id number] [place] [address]- 3521 July, [facility] [place] [facility] [address] [id number] [place] [address]- 9811 Jun, [facility] [place] [facility] [address] [id number] [place] [address]- 6971 Jun, [facility] [place] [facility] [address] [id number] [place] [address]- 8786 Jun, [facility] [place] [facility] [address] [id number] [place] [address]- 3967 May, [facility] [place] [facility] [address] [id number] [place] [address]- 8528 May, [facility] [place] [facility] [address] [id number] [place] [address]- 2020 May, [facility] [place] [facility] [address] [id number] [place] [address]- 6191 May, [facility] [place] [facility] [address] [id number] [place] [address]- 1559 May, [facility] [place] [facility] [address] [id number] [place] [address]- 8220 May, [facility] [place] [facility] [address] [id number] [place] [address]- 5459 May, [facility] [place] [facility] [address] [id number] [place] [address]- 4589 May, [facility] [place] [facility] [address] [id number] [place] [address]- 3864 May, [facility] [place] [facility] [address] [id number] [place] [address]- 2297 May, [facility] [place] [facility] [address] [id number] [place] [address]- 8621 May, [facility] [place] [facility] [address] [id number] [place] [address]- 7028 Apr, 2014 [facility] [place] [facility] [address] [id number] [place] [address]- 9550 Apr, 2014 [facility] [place] [facility] [address] [id number] [place] [address]- 0366 Apr, 2014 [facility] [place] [facility] [address] [id number] [place] [address]- 0516 Apr, 2014 [facility] [place] [facility] [address] [id number] [place] [address]- 9662 Apr, 2014 [facility] [place] [facility] [address] [id number] [place] [address]- 4477 Apr, 2014 [facility] [place] [facility] [address] [id number] [place] [address]- 9571 Apr, [facility] [place] [facility] [address] [id number] [place] [address]- 7773 Apr, [facility] [place] [facility] [address] [id number] [place] [address]- 3128 Mar, [facility] [place] [facility] [address] [id number] [place] [address]- 1890 Mar, [facility] [place] [facility] [address] [facility] [id number] [place] [address]- 6042 Mar, [facility] [place] [facility] [address] [id number] [place] [address]- 6693 Mar, [facility] [place] [facility] [address] [id number], [place] [address]- 5191 Mar, [facility] [place] [facility] [address] [id number] [place] [address]- 5683 Mar, [facility] [place] [facility] [address] [facility] [id number] [place] [address]- 9482 Feb, [facility] [place] [facility] [address] [id number] [place] 4907 Feb, [facility] [place] [facility] [address] [id number] [place] [address]- 4825 Feb, [facility] [place] [facility] [address] [id number] [place] [address]- 8502 Feb, [facility] [place] [facility] [address] [id number] [place] [address]- 1307 Feb, [facility] [place] [facility] [address] [id number] [place] [address]- 0183 Feb, [facility] [place] [facility] [address] [id number] [place] [address]- 5982 Feb, [facility] [place] [facility] [address] [id number] [place] [address]- 6001 Feb, [facility] [place] [facility] [address] [id number] [place] [address]- 6906 Feb, [facility] [place] [facility] [address] [id number] [place] [address]- 2325 Feb, [facility] [place] [facility] [address] [id number] [place] [address]- 8180 Feb, [facility] [place] [facility] [address] [id number] [place] [address]- 0491 Feb, [facility] [place] [facility] [address] [id number] [place] [address]- 3293 18 Feb, 2014 [facility] [place] [facility] [address] [id number] [place] [address]- 4880 15 Feb, 2014 [facility] [place] [facility] [address] [id number] [place] [address]- 8272 15 Feb, 2014 [facility] [place] [facility] [address] [id number] [place] [address]- 3571 Feb, [facility] [place] [facility] [address] [id number] [place] [address]- 9914 10 Feb, 2014 [facility] [place] [facility] [address] [id number] [place] [address]- 1792 Feb, [facility] [place] [facility] [address] [id number] [place] 5783 Feb, [facility] [place] [facility] [address] [id number] [place] [address]- 7564 Feb, [facility] [place] [facility] [address] [id number] [place] 4148 Feb, [facility] [place] [facility] [address] [id number] [place] 0539 Feb, [facility] [place] [facility] [address] [id number] [place] 6162 Feb, [facility] [place] [facility] [address] [id number] [place] [address]- 8178 Jan, [facility] [place] [facility] [address] [id number] [place] [address]- 6662 Jan, [facility] [place] [facility] [address] [id number] [place] [address]- 6256 Jan, [facility] [place] [facility] [address] [id number] [place] [address]- 4620 Jan, [facility] [place] [facility] [address] [id number] [place] [address]- 8276 Jan, [facility] [place] [facility] [address] [id number] [place] [address]- 6863 Jan, [facility] [place] [facility] [address] [id number], [place] [address]- 4290 Jan, [facility] [place] [facility] [address] [id number] [place] [address]- 3559 Jan, [facility] [place] [facility] [address] [id number] [place] [address]- 5571 Jan, [facility] [place] [facility] [address] [id number] [place] [address]- 5068 Dec, [facility] [place] [facility] [address] [id number] [place] [address]- 8009 Dec, 2013 [facility] [place] [facility] [address] [id number] [place] [address]- 7653 Dec, 2013 [facility] [place] [facility] [address] [id number] [place] [address]- 8463 Dec, 2013 [facility] [place] [facility] [address] [id number] [place] [address]- 7300 Dec, 2013 [facility] [place] [facility] [address] [id number] [place] [address]- 9513 Dec, 2013 [facility] [place] [facility] [address] [id number] [place] [address]- 2470 Dec, 2013 [facility] [place] [facility] [address] [id number] [place] [address]- 8277 Dec, 2013 [facility] [place] [facility] [address] [id number] [place] [address]- 2561 Dec, 2013 [facility] [place] [facility] [address] [id number] [place] [address]- 6423 Dec, [facility] [place] [facility] [address] [id number] [place] [address]- 8459 30 Nov, 2013 [facility] [place] [facility] [address] [id number] [place] [address]- 3757 30 Nov, 2013 [facility] [place] [facility] [address] [id number] [place] [address]- 3605 12 Nov, 2013 [facility] [place] [facility] [address] [id number] [place] [address]- 6536 12 Nov, 2013 [facility] [place] [facility] [address] [id number] [place] [address]- 8789 12 Nov, 2013 [facility] [place] [facility] [address] [id number] [place] [address]- 5074 12 Nov, 2013 [facility] [place] [facility] [address] [id number] [place] [address]- 1632 Nov, [facility] [place] [facility] [address] [id number] [place] [address]- 8394 Nov, [facility] [place] [facility] [address] [id number] [place] [address]- 7633 Nov, [facility] [place] [facility] [address] [id number] [place] [address]- 7112 Nov, [facility] [place] [facility] [address] [id number] [place] [address]- 3215 Oct, [facility] [place] [facility] [address] [id number] [place] [address]- 8285 Oct, [facility] [place] [facility] [address] [id number] [place] [address]- 1275 Oct, [facility] [place] [facility] [address] [id number] [place] [address]- 2748 Oct, [facility] [place] [facility] [address] [id number] [place] [address]- 9604 Oct, [facility] [place] [facility] [address] [id number] [place] [address]- 9732 Oct, [facility] [place] [facility] [address] [id number] [place] [address]- 4660 Oct, [facility] [place] [facility] [address] [id number] [place] [address]- 7794 Oct, [facility] [place] [facility] [address] [id number] [place] [address]- 2726 Oct, [facility] [place] [facility] [address] [id number] [place] [address]- 0818 Oct, [facility] [place] [facility] [address] [id number] [place] [address]- 3530 Sep, [facility] [place] [facility] [address] [id number] [place] [address]- 2063 Sep, [facility] [place] [facility] [address] [id number] [place] [address]- 1572 Aug, [facility] [place] [facility] [address] [id number] [place] [address]- 4723 Aug, [facility] [place] [facility] [address] [id number] [place] [address]- 9286 Aug, [facility] [place] [facility] [address] [id number] [place] [address]- 9468 Aug, [facility] [place] [facility] [address] [id number] [place] [address]- 6732 Aug, [facility] [place] [facility] [address] [id number] [place] [address]- 9032 Aug, [facility] [place] [facility] [address] [id number] [place] [address]- 0425 Aug, [facility] [place] [facility] [address] [id number] [place] [address]- 8111 Aug, [facility] [place] [facility] [address] [id number] [place] [address]- 7818 Aug, [facility] [place] [facility] [address] [id number] [place] [address]- 4380 Aug, [facility] [place] [facility] [address] [id number] [place] [address]- 8398 Aug, [facility] [place] [facility] [address] [id number] [place] [address]- 9906 Aug, [facility] [place] [facility] [address] [id number] [place] [address]- 9111 July, [facility] [place] [facility] [address] [id number] [place] [address]- 6101 July, [facility] [place] [facility] [address] [id number] [place] [address]- 4088 July, [facility] [place] [facility] [address] [id number] [place] [address]- 0276 July, [facility] [place] [facility] [address] [id number] [place] [address]- 3565 July, [facility] [place] [facility] [address] [id number] [place] [address]- 9191 July, [facility] [place] [facility] [address] [id number] [place] [address]- 8480 July, [facility] [place] [facility] [address] [id number] [place] [address]- 8150 July, [facility] [place] [facility] [address] [id number] [place] [address]- 6778 Jun, [facility] [place] [facility] [address] [id number] [place] [address]- 5456 Jun, [facility] [place] [facility] [address] [id number] [place] [address] May, [facility] [place] [facility] [address] [id number] [place] [address] May, [facility] [place] [facility] [address] [id number] [place] [address] May, [facility] [place] [facility] [address] [id number] [place] [address] May, [facility] [place] [facility] [address] [id number] [place] [address] May, [facility] [place] [facility] [address] [id number] [place] [address] May, [facility] [place] [facility] [address] [id number] [place] [address] May, [facility] [place] [facility] [address] [id number] [place] [address] May, [facility] [place] [facility] [address] [id number] [place] [address] Apr, [facility] [place] [facility] [address] [id number] [place] [address] Apr, [facility] [address] [id number] [place] [address] Apr, [facility] [place] [facility] [address] [id number] [place] [address] Apr, [facility] [place] [facility] [address] [id number] [place] [address] Apr, [facility] [place] [facility] [address] [id number] [place] [address] Apr, [facility] [place] [facility] [address] [id number] [place] [address] Apr, [facility] [place] [facility] [address] [id number] [place] [address] Apr, [facility] [place] [facility] [address] [facility] [id number] [place] [address] Mar, [facility] [place] [facility] [address] [id number] [place] [address] Mar, [facility] [place] [facility] [address] [id number] [place] [address] Mar, [facility] [place] [facility] [address] [facility] [id number] [place] [address] Mar, [facility] [place] [facility] [address] [id number], [place] [address] Mar, [facility] [place] [facility] [address] [id number], [place] [address] Mar, [facility] [place] [facility] [address] [id number], [place] [address] Mar, [facility] [place] [facility] [address] [facility] [id number], [place] [address] Mar, [facility] [place] [facility] [address] [facility] [id number], [place] [address] Mar, [facility] [place] [facility] [address] [id number] [place] [address] Mar, [facility] [place] [facility] [address] [id number] [place] [address] Feb, [facility] [place] [facility] [address] [id number] [place] [address] Feb, [facility] [place] [facility] [address] [id number] [place] [address] Feb, [facility] [place] [facility] [address] [id number] [place] [address] Feb, [facility] [place] [facility] [address] [id number] [place] [address] Jan, [facility] [place] [facility] [address] [id number] [place] [address] Jan, [facility] [place] [facility] [address] [id number] [place] [address] 30 Dec, 2012 [facility] [place] [facility] [address] [id number] [place] [address] 30 Dec, 2012 [facility] [place] [facility] [address] [id number] [place] [address] 28 Dec, 2012 [facility] [place] [facility] [address] [id number] [place] [address] 28 Dec, 2012 [facility] [place] [facility] [address] [id number] [place] [address] 18 Dec, 2012 [facility] [place] [facility] [address] [id number] [place] [address] 18 Dec, 2012 [facility] [place] [facility] [address] [id number] [place] [address] 14 Dec, 2012 [facility] [place] [facility] [address] [id number] [place] [address] 14 Dec, 2012 [facility] [place] [facility] [address] [id number] [place] [address] Dec, [facility] [place] [facility] [address] [id number] [place] [address] Dec, [facility] [place] [facility] [address] [id number] [place] [address] Dec, [facility] [place] [facility] [address] [id number] [place] [address] Dec, [facility] [place] [facility] [address] [id number] [place] [address] Dec, [facility] [place] [facility] [address] [id number] [place] [address] Nov, [facility] [place] [facility] [address] [id number] [place] [address] Nov, [facility] [place] [facility] [address] [id number] [place] [address] Nov, [facility] [place] [facility] [address] [id number] [place] [address] Nov, [facility] [place] [facility] [address] [id number] [place] [address] Nov, [facility] [place] [facility] [address] [id number] [place] [address] Oct, [facility] [place] [facility] [address] [id number], [place] [address] Oct, [facility] [place] [facility] [address] [id number], [place] [address] Oct, [facility] [place] [facility] [address] [id number] [place] [address] Oct, [facility] [place] [facility] [address] [id number], [place] [address] Oct, [facility] [place] [facility] [address] [id number] [place] [address] Oct, [facility] [place] [facility] [address] [id number] [place] [address] Oct, [facility] [address] [id number] [place] [address] Sep, [facility] [place] [facility] [address] [id number] [place] [address] Sep, [facility] [address] [id number] [place] [address] Sep, [facility] [place] [facility] [address] [id number] [place] [address] Aug, [facility] [address] [id number] [place] [address] Aug, [facility] [address] [id number] [place] [address] Aug, [facility] [address] [id number] [place] [address] Aug, [facility] [address] [id number] [place] [address] July, [facility] [address] [id number] [place] [address] July, [facility] [address] [id number] [place] [address] 14[address] July, [facility] [address] [id number] [place] [address] July, [facility] [place] [facility] [address] [id number] [place] [address] Jun, [facility] [place] [facility] [address] [id number] [place] [address] 80[address] Jun, [facility] [place] [facility] [address] [id number] [place] [address] May, [facility] [place] [facility] [address] [id number] [place] [address] 9960 May, [facility] [place] [facility] [address] [id number] [place] [address] Apr, [facility] [place] [facility] [address] [id number] [place] [address]106 Apr, [facility] [place] [facility] [address] [id number] [place] [address]279 Feb, [facility] [place] [facility] [address] [id number] [place] [address] Feb, [facility] [place] [facility] [address] [id number] [place] [address] Feb, [facility] [place] [facility] [address] [id number] [place] [address]77 Feb, [facility] [place] [facility] [address] [id number] [place] [address] 7[address] Feb, [facility] [place] [facility] [address] [id number] [place] [address] Feb, [facility] [place] [facility] [address] [id number] [place] [address] 7146 Jan, [facility] [place] [facility] [address] [id number] [place] [address] 0896 Jan, [facility] [place] [facility] [address] [id number] [place] [address] Jan, [facility] [place] [facility] [address] [id number] [place] [address] 4784 Jan, [facility] [place] [facility] [address] [id number] [place] [address] Jan, [facility] [place] [facility] [address] [id number] [place] [address] Jan, [facility] [place] [facility] [address] [id number] [place] [address] Jan, [facility] [place] [facility] [address] [id number], [place] [address] 67[address] Jan, [facility] [place] [facility] [address] [id number] [place] [address] 5767 Jan, [facility] [place] [facility] [address] [id number] [address] Jan, [facility] [place] [facility] [address] [facility] [id number] [place] [address]263 Jan, [facility] [place] [facility] [address] [id number], [place] [address] Jan, [facility] [place] [facility] [address] [id number] [place] [address] 93[address] Jan, [facility] [place] [facility] [address] [id number] [place] [address] 6863 Dec, [facility] [place] [facility] [address] [id number], [place] [address] Dec, [facility] [place] [facility] [address] [id number], [place] [address] Dec, [facility] [place] [facility] [address] [id number], [place] [address]67 Dec, [facility] [place] [facility] [address] [facility] [id number], [place] [address]- 1549 Dec, [facility] [place] [facility] [address] [id number], [place] [address] Dec, [facility] [place] [facility] [address] [facility] [id number], [place] [address]- 39[address] Dec, [facility] [place] [facility] [address] [id number], [place] [address] Nov, [facility] [place] [facility] [address] [id number], [place] [address]60 Nov, [facility] [place] [facility] [address] [facility] [id number], [place] [address]- [address]88 Oct, [facility] [place] [facility] [address] [id number] [place] [address] 9188 Oct, [facility] [address] [id number] [place] [address] Sep, [facility] [place] [facility] [address] [id number] [place] [address] 7006 Sep, [facility] [address] [id number] [place] [address] 0013 Sep, [facility] [place] [facility] [address] [id number] [place] [address] 2836 Sep, [facility] [address] [id number] [place] [address] 9410 July, [facility] [address] [id number] [place] [address] 9243 July, [facility] [address] [id number] [place] [address] 4326 July, [facility] [address] [id number] [place] [address]- 4712 Jun, [facility] [place] [facility] [address] [id number] [place] [address] 4056 Jun, [facility] [address] [id number] [place] [address] 2110 Jun, [facility] [place] [facility] [address] [id number] [place] [address] 9803 16 Jun, 2011 [facility] [place] [facility] [address] [id number] [place] [address]- 3451 13 Jun, 2011 [facility] [place] [facility] [address] [id number] [place] [address] 2341 10 Jun, 2011 [facility] [place] [facility] [address] [id number] [place] [address]- 1026 Jun, [facility] [place] [facility] [address] [id number] [place] [address]- 4624 Jun, [facility] [place] [facility] [address] [id number] [place] [address]- 8974 Jun, [facility] [place] [facility] [address] [id number] [place] [address]- 0266 May, [facility] [place] [facility] [address] [id number] [place] [address]- 8270 May, [facility] [place] [facility] [address] [id number] [place] [address]- 3040 May, [facility] [place] [facility] [address] [id number] [place] [address]- 2942 May, [facility] [place] [facility] [address] [id number] [place] [address]- 2350 May, [facility] [place] [facility] [address] [id number] [place] [address]- 7760 Apr, [facility] [place] [facility] [address] [id number] [place] [address]- 7659 Mar, [facility] [place] [facility] [address] [id number] [place] [address]- 3512 Mar, [facility] [place] [facility] [address] [facility] [id number] [place] [address]- 2018 Feb, [facility] [place] [facility] [address] [id number], [place] [address]- 3984 Feb, [facility] [place] [facility] [address] [id number], [place] [address]- 5529 Feb, [facility] [place] [facility] [address] [id number] [place] [address]- 9920 Jan, [facility] [place] [facility] [address] [id number] [place] [address]- 8566 Dec, [facility] [place] [facility] [address] [facility] [id number] [place] [address]- 5129 Dec, [facility] [place] [facility] [address] [id number] [place] [address]- 6749 11 Dec, 2010 [facility] [address] [id number] [place] [address]- 8741 16 Jul, 2010 [facility] [place] [facility] [address] [id number] [place] [address]- 2385 18 May, 2010 [facility] [address] [id number] [place] [address] 22 Feb, 2010 [facility] [place] [facility] [address] [id number] [place] [address]- 2221 15 Feb, 2010 [facility] [address] [id number] [place] [address]- 6456 09 Feb, 2010 [facility] [place] [facility] [address] [id number] [place] [address]- 1516 Jan, [facility] [address] [id number] [place] [address]- 3122 26 Dec, 2009 [facility] [place] [facility] [address] [id number] [place] [address]- 1793 13 Dec, 2009 [facility] [place] [facility] [address] [id number] [place] [address]- 9237 Oct, [facility] [place] [facility] [address] [id number] [place] [address]- 2746 13 Jul, 2009 [facility] [place] [facility] [address] [id number] [place] [address]- 2738 18 Apr, 2009 [facility] [place] [facility] [address] [id number] [place] [address]- 8943 Mar, [facility] [place] [facility] [address] [id number] [place] [address]- [address] Feb, [facility] [place] [facility] [address] [id number] [place] [address]- 2066 Feb, [facility] [place] [facility] [address] [id number] [place] [address]- 5197 Feb, [facility] [address] [id number], [place] [address] 1826 Feb, [facility] [id number], [place] [address]116 Feb, [facility] [id number], [place] [address] 6648 Jan, [facility] [id number] [place] [address]- 3300 Jan, [facility] [id number] [place] [address]- 8709 Dec, [facility] [id number] [place] [address]- 9834 Nov, IMMUNIZATIONS No Known Immunizations SOCIAL HISTORY Never Assessed REASON FOR VISIT Requests return call PLAN OF CARE VITAL SIGNS MEDICATIONS Unknown [...]
--- OUTSIDE RECORDS SUMMARY | 2018-02-11 11:21 | XMS REPORT ---
Author Author TAMMY COPELAND [facility] Address [address] [place] [address] Care Team Providers Care Buffet Manager Name Role Phone TAMMY COPELAND Unavailable PROBLEMS Type Condition ICD9-CM Code TPK62-TN Code Onset Dates Condition Status SNOMED Code Problem GERD with esophagitis K21.0 Active 290360689 Problem Dyspnea on exertion R06.09 Active 67644165 Problem Essential hypertension I10 Active 13317073 Problem Allergic state, subsequent encounter T78.40XD Active 667702715 Problem Arthritis M19.90 Active 7608139 Problem Dyspnea, unspecified R06.00 Active 432148344 Problem Left upper quadrant pain R10.12 Active 563649996 Problem Hypothyroidism (acquired) E03.9 Active 365713689 Problem Chronic superficial gastritis without bleeding K29.30 Active 743309098 Problem Infraspinatus tendon tear, left, subsequent encounter S46.812D Active 2988190 Problem IRVIN (obstructive sleep apnea) G47.33 Active 00445859 Problem Supraspinatus tendon tear, left, subsequent encounter S46.812D Active 731005847 Problem Restless legs syndrome G25.81 Active 292748382 Problem Other specified hypothyroidism E03.8 Active 207951589 Problem Rupture of tendon of right shoulder S46.911A Active 977323262 Problem Bronchitis J40 Active 63522076 Problem Asthma J45.909 Active 627794265 Problem Asthma with acute exacerbation J45.901 Active 237232805 ALLERGIES No Information ENCOUNTERS Encounter Location Date Diagnosis [facility] [address] [address] May, Asthma J45.909 [facility] [id number], [place] [address] May, [facility] [id number] [place] [address]957- 5913 Apr, Pre-op evaluation Z01.818 ; Allergic state, subsequent encounter T78.40XD and BMI 45.0-49.9, adult Z68.42 [facility] [address] [address] Mar, [place] [address] [address] Mar, [facility] [address] [address] Mar, Cough R05 ; Acute nasopharyngitis J00 and BMI 45.0-49.9, adult Z68.42 [place] [address] [address]- [address] Mar, [place] [address] [address]- [address] Jan, Ganglion cyst of finger of right hand M67.441 [place] [address] [address]84- [address]134 Dec, [place] [address] [address]- 65[address] Dec, Change in vision H53.9 ; Arthritis M19.90 ; Essential hypertension I10 ; GERD with esophagitis K21.0 ; Hypothyroidism (acquired) E03.9 and Ganglion cyst of joint of finger of left hand M67.442 [place] [address] [address]- [address] 15 Nov, 2016 Encounter for immunization Z23 [place] [address] [address]- 8661 Nov, [place] [address] [address]- 74[address] Sep, [place] [address] [address]- 350[address] Aug, [place] [id number] [place] [address] 33353- 2884 July, Cyst of joint of right hand M25.841 [place] [address] 17592- 2666 May, [place] [address] [address]- 58[address] May, Fever, unspecified R50.9 and Influenza A J10.1 [place] [address] 00[address]- 9354 May, Left shoulder pain, unspecified chronicity M25.512 [place] [address] [address]- [address]85 Apr, [place] [address] 75497- 0552 Apr, Infraspinatus tendon tear, left, subsequent encounter S46.812D and Supraspinatus tendon tear, left, subsequent encounter S46.812D [place] [id number] [place] [address] 27036- 1272 Apr, [place] [address] 46790- 0270 Mar, Left shoulder pain, unspecified chronicity M25.512 [place] [address] 7[address]- 7085 Mar, [place] [id number] [place] [address] 51375- 1254 Mar, Left shoulder pain, unspecified chronicity M25.512 [place] [address] [address]- 4228 Feb, Chronic superficial gastritis without bleeding K29.30 ; Left upper quadrant pain R10.12 ; Essential hypertension I10 ; Dyspnea on exertion R06.09 and Palpitations R00.2 [place] [address] [address]- 34[address] Jan, Colon polyps K63.5 [facility] [id number] [place] [address] 73394- 1214 Jan, Colon polyps K63.5 [facility] [id number] [place] [address] 25706- 4190 Dec, [facility] [address] [address] Dec, GERD with esophagitis K21.0 [facility] [id number] [place] [address] 56577- 4276 Nov, Arthritis pain M19.90 ; Colon polyps K63.5 ; Seasonal allergic rhinitis due to pollen J30.1 and Encounter for immunization Z23 [facility] [address] [address]- 6463 Nov, [facility] [address] 38411- 8608 Oct, [facility] [id number] [place] [address] 57910- 3624 Sep, [facility] [address] 68029- 7849 July, [facility] [id number] [place] [address] 75670- 9135 July, [facility] [address] 78510- 7844 July, Asthma with acute exacerbation J45.901 and Bronchitis J40 [facility] [address] 25149- 1163 Jun, [facility] [address] 43128- 0076 May, Other specified hypothyroidism E03.8 and 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 [facility] [address] 72510- 6819 Apr, [facility] [id number] [place] [address] 77650- 3042 Apr, Sacroiliac joint pain M53.3 [facility] [id number] [place] [address] 78357- 0739 Mar, Other specified hypothyroidism E03.8 ; Restless legs syndrome G25.81 ; Asthma with acute exacerbation J45.901 and Bronchitis J40 [facility] [id number] [place] [address] 20870 -7100 Feb, Upper respiratory symptom R09.89 [place] [address] 97472- 8222 Feb, Restless leg G25.81 and Asthma J45.909 [place] [address] 39367- 2632 Dec, Rupture of tendon of right shoulder S46.911A [place] [id number] [place] [address] 56881- 8433 Dec, Sacroiliac joint pain M53.3 [place] [id number] [place] [address] 43531- 4119 Nov, [place] [id number] [place] [address] 40403- 5322 Nov, Lumbago of lumbosacaral region with sciatica 724.2 and Sacroiliitis 720.2 [place] [id number] [place] [address] 99877- 0624 Nov, Influenza vaccine administered V04.81 [place] [id number] [place] [address] 71050- 4134 Nov, [place] [id number] [place] [address] 98921- 2432 Nov, [place] [id number] [place] [address] 79415- 9009 Nov, Thyroid function test abnormal 794.5 and Thyroid antibody positive 795.79 [facility] [id number] [place] [address] 69024- 4157 16 Nov, 2014 Hypothyroidism 244.9 ; Thyroid antibody positive 795.79 and Right shoulder pain 719.41 [facility] [id number] [place] [address] 64919- 4913 Oct, [facility] [address] 24225- 2880 Oct, Thyroid function test abnormal 794.5 [place] [address] 08708- 9227 Oct, Hypertension 401.9 and Bilateral leg pain 729.5 [place] [id number] [place] [address] 69954- 9719 Oct, [facility] [address] 42392- 2022 Oct, Bilateral leg pain 729.5 and Hypertension 401.9 [place] [id number] [place] [address] 06139- 7511 Sep, Bilateral leg pain 729.5 ; Hypertension 401.9 and Edema 782.3 [place] [id number] [place] [address] 80260- 2609 Aug, Unspecified hereditary and idiopathic peripheral neuropathy 356.9 and Arthritis 716.90 [facility] [id number] [place] [address] 41847- 8389 Aug, [facility] [id number] [place] [address] 75248- 7210 July, [facility] [id number] [place] [address] 03272- 8869 Jun, [facility] [id number] [place] [address] 37091- 9471 Jun, [facility] [place] [facility] [address] [id number] [place] [address]- 8038 13 Jun, 2014 [facility] [place] [facility] [address] [id number] [place] [address]- 2289 25 May, 2014 [facility] [place] [facility] [address] [id number] [place] [address]- 8985 May, [facility] [place] [facility] [address] [id number] [place] [address]- 3741 May, [facility] [place] [facility] [address] [id number] [place] [address]- 0879 May, [facility] [place] [facility] [address] [id number] [place] [address]- 5409 May, [facility] [place] [facility] [address] [id number] [place] [address]- 1516 May, [facility] [place] [facility] [address] [id number] [place] [address]- 4973 May, [facility] [place] [facility] [address] [id number] [place] [address]- 3847 May, [facility] [place] [facility] [address] [id number] [place] [address]- 9054 May, [facility] [place] [facility] [address] [id number] [place] [address]- 8965 May, [facility] [place] [facility] [address] [id number] [address]- 0421 May, [facility] [place] [facility] [address] [id number] [place] [address]- 2020 Apr, [facility] [place] [facility] [address] [id number] [place] [address]- 1189 Apr, [facility] [place] [facility] [address] [id number] [place] [address]- 4721 Apr, [facility] [place] [facility] [address] [id number] [place] [address]- 4742 Apr, 2014 [facility] [place] [facility] [address] [id number] [place] [address]- 0146 Apr, 2014 [facility] [place] [facility] [address] [id number] [place] [address]- 9316 Apr, 2014 [facility] [place] [facility] [address] [id number] [place] [address]- 4946 Apr, [facility] [place] [facility] [address] [id number] [place] [address]- 0657 Apr, [facility] [place] [facility] [address] [id number] [place] [address]- 9118 Mar, [facility] [place] [facility] [address] [id number] [place] [address]- 2849 Mar, [facility] [place] [facility] [address] [id number] [place] [address]- 7729 Mar, [facility] [place] [facility] [address] [id number] [place] [address]- 0482 Mar, [facility] [place] [facility] [address] [id number] [place] [address]- 5382 Mar, [facility] [place] [facility] [address] [facility] [id number] [place] [address]- 5002 Mar, [facility] [place] [facility] [address] [id number] [place] [address]- 9835 Feb, [facility] [place] [facility] [address] [id number] [place] [address]- 1140 Feb, [facility] [place] [facility] [address] [id number] [place] [address]- 1818 Feb, [facility] [place] [facility] [address] [id number] [place] [address]- 6682 Feb, [facility] [place] [facility] [address] [id number] [place] [address]- 7612 Feb, [facility] [place] [facility] [address] [id number] [place] [address]- 9703 Feb, [facility] [place] [facility] [address] [id number] [place] [address]- 3972 Feb, [facility] [place] [facility] [address] [id number] [place] [address]- 1949 Feb, [facility] [place] [facility] [address] [id number] [place] [address]- 7608 Feb, [facility] [place] [facility] [address] [id number] [place] [address]- 1694 Feb, [facility] [place] [facility] [address] [id number] [place] [address]- 8501 Feb, [facility] [place] [facility] [address] [id number] [place] [address]- 9509 Feb, [facility] [place] [facility] [address] [id number] [place] [address]- 3188 Feb, [facility] [place] [facility] [address] [id number] [place] [address]- 7615 Feb, [facility] [place] [facility] [address] [id number] [place] [address]- 4387 Feb, [facility] [place] [facility] [address] [id number] [place] [address]- 2683 Feb, [facility] [place] [facility] [address] [id number] [place] [address]- 8390 Feb, [facility] [place] [facility] [address] [id number] [place] [address]- 5623 Feb, [facility] [place] [facility] [address] [id number] [place] [address]- 8465 Feb, [facility] [place] [facility] [address] [id number] [place] [address]- 3691 Feb, [facility] [place] [facility] [address] [id number] [place] 6007 Feb, [facility] [place] [facility] [address] [id number] [place] 6876 Feb, [facility] [place] [facility] [address] [id number] [place] [address]- 9373 Feb, [facility] [place] [facility] [address] [id number] [place] [address]- 4053 Jan, [facility] [place] [facility] [address] [id number] [place] [address]- 6314 Jan, [facility] [place] [facility] [address] [id number] [place] [address]- 6776 Jan, [facility] [place] [facility] [address] [id number] [place] [address]- 7854 Jan, [facility] [place] [facility] [address] [id number] [place] [address]- 2677 Jan, [facility] [place] [facility] [address] [id number] [place] [address]- 3703 Jan, [facility] [place] [facility] [address] [id number] [place] [address]- 8691 Jan, [facility] [place] [facility] [address] [id number] [place] [address]- 5945 Jan, [facility] [place] [facility] [address] [id number], [place] [address]- 7377 Jan, [facility] [place] [facility] [address] [id number], [place] [address]- 4779 Dec, [facility] [place] [facility] [address] [id number] [place] [address]- 8043 Dec, [facility] [place] [facility] [address] [id number] [place] [address]- 2862 Dec, [facility] [place] [facility] [address] [id number] [place] [address]- 9641 Dec, [facility] [place] [facility] [address] [id number] [place] [address]- 6683 Dec, [facility] [place] [facility] [address] [id number] [place] [address]- 8603 Dec, [facility] [place] [facility] [address] [id number] [place] [address]- 0184 Dec, [facility] [place] [facility] [address] [id number] [place] [address]- 8331 Dec, [facility] [place] [facility] [address] [id number] [place] [address]- 6109 Dec, [facility] [place] [facility] [address] [id number] [place] [address]- 5834 Dec, [facility] [place] [facility] [address] [id number] [place] [address]- 6898 30 Nov, 2013 [facility] [place] [facility] [address] [id number] [place] [address]- 6536 30 Nov, 2013 [facility] [place] [facility] [address] [id number] [place] [address]- 3120 12 Nov, 2013 [facility] [place] [facility] [address] [id number] [place] [address]- 0951 12 Nov, 2013 [facility] [place] [facility] [address] [id number] [place] [address]- 5908 12 Nov, 2013 [facility] [place] [facility] [address] [id number] [place] [address]- 2544 12 Nov, 2013 [facility] [place] [facility] [address] [id number] [place] [address]- 2547 11 Nov, 2013 [facility] [place] [facility] [address] [id number] [place] [address]- 2457 11 Nov, 2013 [facility] [place] [facility] [address] [id number] [place] [address]- 0095 02 Nov, 2013 [facility] [place] [facility] [address] [id number] [place] [address]- 8150 Nov, [facility] [place] [facility] [address] [id number] [place] [address]- 5915 Oct, [facility] [place] [facility] [address] [id number] [place] [address]- 8198 Oct, [facility] [place] [facility] [address] [id number] [place] [address]- 9409 Oct, [facility] [place] [facility] [address] [id number] [place] [address]- 7325 Oct, [facility] [place] [facility] [address] [id number] [place] [address]- 0493 Oct, [facility] [place] [facility] [address] [id number] [place] [address]- 3038 Oct, [facility] [place] [facility] [address] [id number] [place] [address]- 5756 Oct, [facility] [place] [facility] [address] [id number] [place] [address]- 3977 Oct, [facility] [place] [facility] [address] [id number] [place] [address]- 8678 Oct, [facility] [place] [facility] [address] [id number] [place] [address]- 6044 Oct, [facility] [place] [facility] [address] [id number] [place] [address]- 1463 Sep, [facility] [place] [facility] [address] [id number] [place] [address]- 2574 Sep, [facility] [place] [facility] [address] [id number] [place] [address]- 6338 Aug, [facility] [place] [facility] [address] [id number] [place] [address]- 2058 Aug, [facility] [place] [facility] [address] [id number] [place] [address]- 7352 Aug, [facility] [place] [facility] [address] [id number], [place] [address]- 9547 Aug, [facility] [place] [facility] [address] [id number] [place] [address]- 8615 Aug, [facility] [place] [facility] [address] [id number] [place] [address]- 5132 Aug, [facility] [place] [facility] [address] [id number] [place] [address]- 4549 Aug, [facility] [place] [facility] [address] [id number] [place] [address]- 8556 Aug, [facility] [place] [facility] [address] [id number] [place] [address]- 0240 Aug, [facility] [place] [facility] [address] [id number] [place] [address]- 1563 Aug, [facility] [place] [facility] [address] [id number] [place] [address]- 5825 Aug, [facility] [place] [facility] [address] [id number] [place] [address]- 0265 Aug, [facility] [place] [facility] [address] [id number] [place] [address]- 6941 July, [facility] [place] [facility] [address] [id number] [place] [address]- 7308 July, [facility] [place] [facility] [address] [id number] [place] [address]- 1858 July, [facility] [place] [facility] [address] [id number] [place] [address]- 5992 July, [facility] [place] [facility] [address] [id number] [place] [address]- 9853 July, [facility] [place] [facility] [address] [id number] [place] [address]- 4489 July, [facility] [place] [facility] [address] [id number] [place] [address]- 6715 July, [facility] [place] [facility] [address] [id number] [place] [address]- 0591 July, [facility] [place] [facility] [address] [id number] [place] [address]- 3815 Jun, [facility] [place] [facility] [address] [id number] [place] [address]- 2310 Jun, [facility] [place] [facility] [address] [id number] [place] [address]- 9368 May, [facility] [place] [facility] [address] [id number] [place] [address]- 9350 May, [facility] [place] [facility] [address] [id number] [place] [address]- 7779 May, [facility] [place] [facility] [address] [id number] [place] [address]- 1080 May, [facility] [place] [facility] [address] [id number] [place] [address]- 1092 May, [facility] [place] [facility] [address] [id number] [place] [address]- 4495 May, [facility] [place] [facility] [address] [id number] [place] [address] May, [facility] [place] [facility] [address] [id number] [place] [address] May, [facility] [place] [facility] [address] [id number] [place] [address] Apr, [facility] [place] [facility] [address] [id number] [place] [address] Apr, [facility] [place] [facility] [address] [id number] [place] [address] Apr, [facility] [place] [facility] [address] [id number] [place] [address] Apr, [facility] [place] [facility] [address] [id number] [place] [address] Apr, [facility] [address] [id number] [place] [address] Apr, [facility] [place] [facility] [address] [id number] [place] [address] Apr, [facility] [place] [facility] [address] [id number] [place] [address] Apr, [facility] [place] [facility] [address] [id number] [place] [address] Mar, [facility] [place] [facility] [address] [id number] [place] [address] Mar, [facility] [place] [facility] [address] [id number] [place] [address] Mar, [facility] [address] [id number] [place] [address] Mar, [facility] [place] [facility] [address] [id number] [place] [address] Mar, [facility] [place] [facility] [address] [id number] [place] [address]- [address] Mar, [facility] [place] [facility] [address] [id number] [place] [address] Mar, [facility] [place] [facility] [address] [id number], [place] [address] Mar, [facility] [place] [facility] [address] [id number], [place] [address] Mar, [facility] [place] [facility] [address] [id number], [place] [address] 1995 Mar, [facility] [place] [facility] [address] [id number], [place] [address] Feb, [facility] [place] [facility] [address] [id number] [place] [address]- [address] Feb, [facility] [place] [facility] [address] [id number] [place] [address] Feb, [facility] [place] [facility] [address] [id number] [place] [address] Feb, [facility] [place] [facility] [address] [id number] [place] [address] Jan, [facility] [place] [facility] [address] [id number] [place] [address] Jan, [facility] [place] [facility] [address] [id number] [place] [address]- [address]64 Dec, [facility] [place] [facility] [address] [id number] [place] [address]- [address] Dec, [facility] [place] [facility] [address] [id number] [place] [address] Dec, [facility] [place] [facility] [address] [id number] [place] [address] Dec, [facility] [place] [facility] [address] [id number] [place] [address]- [address] Dec, [facility] [place] [facility] [address] [id number] [place] [address]398 Dec, [facility] [place] [facility] [address] [id number] [place] [address]- [address] 14 Dec, 2012 [facility] [place] [facility] [address] [id number] [place] [address] 14 Dec, 2012 [facility] [place] [facility] [address] [id number] [place] [address] Dec, [facility] [place] [facility] [address] [id number] [place] [address] Dec, [facility] [place] [facility] [address] [id number] [place] [address] Dec, [facility] [place] [facility] [address] [id number] [place] [address] Dec, [facility] [place] [facility] [address] [id number] [place] [address] Dec, [facility] [place] [facility] [address] [id number] [place] [address] Nov, [facility] [place] [facility] [address] [id number] [place] [address] Nov, [facility] [place] [facility] [address] [id number] [place] [address] Nov, [facility] [place] [facility] [address] [id number] [place] [address] Nov, [facility] [place] [facility] [address] [id number] [place] [address] Nov, [facility] [place] [facility] [address] [id number] [place] [address] Oct, [facility] [place] [facility] [address] [id number] [place] [address] Oct, [facility] [place] [facility] [address] [id number] [place] [address]- [address] Oct, [facility] [place] [facility] [address] [id number] [place] [address]- [address] Oct, [facility] [place] [facility] [address] [id number], [place] [address] Oct, [facility] [place] [facility] [address] [id number], [place] [address] Oct, [facility] [place] [facility] [address] [id number] [place] [address]- [address] Oct, [facility] [place] [facility] [address] [id number], [place] [address] Sep, [facility] [place] [facility] [address] [id number] [place] [address] Sep, [facility] [place] [facility] [address] [id number] [place] [address]- [address] 15 Sep, 2012 [facility] [address] [id number] [place] [address] Aug, [facility] [address] [id number] [place] [address] Aug, [facility] [address] [id number] [place] [address] Aug, [facility] [address] [id number] [place] [address] Aug, [facility] [address] [id number] [place] [address] July, [facility] [address] [id number] [place] [address] July, [facility] [address] [id number] [place] [address] July, [facility] [address] [id number] [place] [address] July, [facility] [address] [id number] [place] [address] Jun, [facility] [address] [id number] [place] [address] Jun, [facility] [address] [id number] [place] [address] May, [facility] [address] [id number] [place] [address] May, [facility] [place] [facility] [address] [id number] [place] [address] Apr, [facility] [place] [facility] [address] [id number] [place] [address] Apr, [facility] [place] [facility] [address] [id number] [place] [address] Feb, [facility] [place] [facility] [address] [id number] [place] [address] Feb, [facility] [place] [facility] [address] [id number] [place] [address] Feb, [facility] [place] [facility] [address] [id number] [place] [address] 1560 Feb, [facility] [place] [facility] [address] [id number] [place] [address] Feb, [facility] [place] [facility] [address] [id number] [place] [address] Feb, [facility] [place] [facility] [address] [id number] [place] [address] Jan, [facility] [place] [facility] [address] [id number] [place] [address] Jan, [facility] [place] [facility] [address] [id number] [place] [address] Jan, [facility] [place] [facility] [address] [id number] [place] [address] Jan, [facility] [place] [facility] [address] [id number] [place] [address] 279[address] Jan, [facility] [place] [facility] [address] [id number] [place] [address] Jan, [facility] [place] [facility] [address] [id number], [place] [address] Jan, [facility] [place] [facility] [address] [id number] [place] [address] 15 Jan, 2012 [facility] [place] [facility] [address] [id number] [place] [address] 15 Jan, 2012 [facility] [place] [facility] [address] [id number] [place] [address] 12 Jan, 2012 [facility] [place] [facility] [address] [id number], [place] [address] Jan, [facility] [place] [facility] [address] [id number] [place] [address] 1145 Jan, [facility] [place] [facility] [address] [id number] [place] [address] Jan, [facility] [place] [facility] [address] [id number] [place] [address] 1717 Dec, [facility] [place] [facility] [address] [id number] [place] [address] Dec, [facility] [place] [facility] [address] [id number] [place] [address]165 Dec, [facility] [place] [facility] [address] [id number] [place] [address] Dec, [facility] [place] [facility] [address] [id number] [place] [address] Dec, [facility] [place] [facility] [address] [id number] [place] [address] Dec, [facility] [place] [facility] [address] [id number] [place] [address]- 7185 Dec, [facility] [place] [facility] [address] [id number] [place] [address]80 Nov, [facility] [place] [facility] [address] [id number], [place] [address] Nov, [facility] [place] [facility] [address] [id number], [place] [address] Oct, [facility] [place] [facility] [address] [id number] [place] [address] Oct, [facility] [place] [facility] [address] [id number] [place] [address] Sep, [facility] [place] [facility] [address] [facility] [id number] [place] [address] Sep, [facility] [place] [facility] [address] [id number] [place] [address]42 Sep, [facility] [address] [id number] [place] [address] Sep, [facility] [place] [facility] [address] [id number] [place] [address] 2546 July, [facility] [address] [id number] [place] [address] 3412 July, [facility] [address] [id number] [place] [address] July, [facility] [address] [id number] [place] [address] 7379 Jun, [facility] [address] [id number] [place] [address] Jun, [facility] [address] [id number] [place] [address] Jun, [facility] [address] [id number] [place] [address] Jun, [facility] [address] [id number] [place] [address]77 Jun, [facility] [address] [id number] [place] [address]- 1066 Jun, [facility] [place] [facility] [address] [id number] [place] [address]286 Jun, [facility] [address] [id number] [place] [address]4 Jun, [facility] [place] [facility] [address] [id number] [place] [address] 0984 Jun, [facility] [place] [facility] [address] [id number] [place] [address]- 5806 May, [facility] [place] [facility] [address] [id number] [place] [address] 2533 May, [facility] [place] [facility] [address] [id number] [place] [address]- 8501 May, [facility] [place] [facility] [address] [id number] [place] [address]- 9802 May, [facility] [place] [facility] [address] [id number] [place] [address]- 6995 May, [facility] [place] [facility] [address] [id number] [place] [address]- 6150 Apr, [facility] [place] [facility] [address] [id number] [place] [address] 2608 Mar, [facility] [place] [facility] [address] [id number] [place] [address]- 0613 Mar, [facility] [place] [facility] [address] [id number] [place] [address]- 7883 Feb, [facility] [place] [facility] [address] [id number] [place] [address]- 4092 Feb, [facility] [place] [facility] [address] [id number] [place] [address]- 6688 Feb, [facility] [place] [facility] [address] [id number] [place] [address]- 1693 Jan, [facility] [place] [facility] [address] [id number], [place] [address]- 4784 Dec, [facility] [place] [facility] [address] [id number], [place] [address]- 6294 Dec, [facility] [place] [facility] [address] [id number] [place] [address]- 1563 Dec, [facility] [place] [facility] [address] [id number] [place] [address]- 7695 July, [facility] [place] [facility] [address] [id number] [place] [address]- 0667 May, [facility] [place] [facility] [address] [id number] [place] [address] 22 Feb, 2010 [facility] [address] [id number] [place] [address]- 0657 15 Feb, 2010 [facility] [place] [facility] [address] [id number] [place] [address] 09 Feb, 2010 [facility] [address] [id number] [place] [address]- 0096 Jan, [facility] [place] [facility] [address] [id number] [place] [address]- 4966 Dec, [facility] [address] [id number] [place] [address]- 8540 Dec, [facility] [place] [facility] [address] [id number] [place] [address]- 1518 Oct, [facility] [address] [id number] [place] [address]- 1057 July, [facility] [place] [facility] [address] [id number] [place] [address]- 8842 Apr, [facility] [place] [facility] [address] [id number] [place] [address]- 4674 Mar, [facility] [place] [facility] [address] [facility] [id number] [place] [address]- 5758 Feb, [facility] [place] [facility] [address] [id number] [place] [address]- 3956 18 Feb, 2009 [facility] [place] [facility] [address] [id number], [place] [address]- 3785 03 Feb, 2009 [facility] [place] [facility] [address] [id number] [place] [address]- 5826 02 Feb, 2009 [facility] [place] [facility] [address] [id number] [place] [address]- 4016 02 Feb, 2009 [facility] [place] [facility] [address] [id number], [place] [address]- 4074 Jan, [facility] [address] [facility] [id number], [place] [address]- 7158 Jan, [facility] [address] [facility] [id number][place] [address] [address] Dec, [facility] [address] [facility] [id number], [place] [address]- [address]12 14 Nov, 2008 IMMUNIZATIONS No Known Immunizations SOCIAL HISTORY Never Assessed REASON FOR VISIT Medication refill request PLAN OF CARE VITAL SIGNS MEDICATIONS Medication Instructions Dosage Frequency Start Date End Date Duration Status Gabapentin 300 MG Orally 1 at HS TAKE ONE CAPSULE BY MOUTH DAILY AT NIGHT 30 Active Meloxicam 15 MG Orally Once a day 1 tablet 24h 30 Active RESULTS No Results PROCEDURES No [...]
--- OUTSIDE RECORDS SUMMARY | 2018-02-11 11:33 | XMS REPORT | Continuity of Care Document ---
Author Author [facility] Address Unknown Phone Unavailable Allergies Active Description Code Type Severity Reaction Onset Reported/Identified Relationship to Patient Clinical Status Yes All Pain Meds OA 11/13/2008 Yes All Pain Meds OA N/A N/A 11/13/2008 Yes celecoxib [id number] Drug Allergy Unknown N/A 01/21/2016 Yes hydrocodone [id number] Drug Allergy Unknown N/A 01/23/2016 Yes hydrocodone [id number] Drug Allergy Unknown HAS HAD PERCOCE 06/10/2016 Medications There is no data. 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 ACTINIC KERATOSIS 10/20/2007 HERMINIO BOILER CONTROL ROOM OPERATOR, AC T 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 10/20/2007 HERMINIO RAMIREZ, AC T 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 ACTINIC KERATOSIS 10/20/2007 PRASAD NUÑEZ, ODILON Santos 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 10/20/2007 PRASAD NUÑEZ, ODILON Santos 702.0 ACTINIC KERATOSIS 10/20/2007 PRASAD NUÑEZ, ODILON [...] DENISE K 702.0 ACTINIC KERATOSIS 10/20/2007 MADL BOILER CONTROL ROOM OPERATOR, TAMMY L 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 10/20/2007 MADL BOILER CONTROL ROOM OPERATOR, TAMMY L 702.0 ACTINIC KERATOSIS 10/20/2007 MADL BOILER CONTROL ROOM OPERATOR, TAMMY L 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 10/20/2007 MADL BOILER CONTROL ROOM OPERATOR, TAMMY L 702.0 ACTINIC KERATOSIS 10/20/2007 MADL BOILER CONTROL ROOM OPERATOR, TAMMY L 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 10/20/2007 MADL BOILER CONTROL ROOM OPERATOR, TAMMY L 702.0 ACTINIC KERATOSIS 10/20/2007 MADL BOILER CONTROL ROOM OPERATOR, TAMMY L 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 10/20/2007 MADL BOILER CONTROL ROOM OPERATOR, TAMMY L 702.0 ACTINIC KERATOSIS 10/20/2007 FATIMA DO, DENISE K 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 10/20/2007 FATIMA DO, DENISE K 702.0 ACTINIC KERATOSIS 10/20/2007 MADL BOILER CONTROL ROOM OPERATOR, TAMMY L 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 10/20/2007 MADL BOILER CONTROL ROOM OPERATOR, TAMMY L 702.0 ACTINIC KERATOSIS 10/20/2007 MADL BOILER CONTROL ROOM OPERATOR, TAMMY L 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 10/20/2007 MADL BOILER CONTROL ROOM OPERATOR, TAMMY L 702.0 ACTINIC KERATOSIS 10/20/2007 FATIMA DO, DENISE K 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 10/20/2007 FATIMA DO, DENISE K 702.0 ACTINIC KERATOSIS 10/20/2007 MADL BOILER CONTROL ROOM OPERATOR, TAMMY L 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47 PAIN IN JOINT INVOLVING ANKLE AND FOOT 11/03/2007 LIEN TINEO MD 71Michaela.47 PAIN IN JOINT INVOLVING ANKLE AND FOOT [...] ANKLE AND FOOT 11/03/2007 KHADRA FATIMA DOA Kyaw 719.47 PAIN IN JOINT INVOLVING ANKLE AND FOOT 11/03/2007 DENISE FATIMA DO 719.47 PAIN IN JOINT INVOLVING ANKLE AND FOOT 11/03/2007 KHADRA FATIMA DOA Kyaw 719.47 PAIN IN JOINT INVOLVING ANKLE AND FOOT 11/03/2007 KHADRA FATIMA DOA Kyaw 719.47 PAIN IN JOINT INVOLVING ANKLE AND FOOT 11/03/2007 TAMMY COPELAND APRN 719.47 PAIN IN JOINT INVOLVING ANKLE AND FOOT 11/03/2007 MADL BOILER CONTROL ROOM OPERATOR, TAMMY L 719.47 PAIN IN JOINT INVOLVING ANKLE AND FOOT 11/03/2007 MADL BOILER CONTROL ROOM OPERATOR, TAMMY L 719.47 PAIN IN JOINT INVOLVING ANKLE AND FOOT 11/03/2007 MADL BOILER CONTROL ROOM OPERATOR, TAMMY L 719.47 PAIN IN JOINT INVOLVING ANKLE AND FOOT 11/03/2007 DENISE FATIMA DO 719.47 PAIN IN JOINT INVOLVING ANKLE AND FOOT 11/03/2007 MADL BOILER CONTROL ROOM OPERATOR, TAMMY L 719.47 PAIN IN JOINT INVOLVING ANKLE AND FOOT 11/03/2007 MADL BOILER CONTROL ROOM OPERATOR, TAMMY L 719.47 PAIN IN JOINT INVOLVING ANKLE AND FOOT 11/03/2007 DENISE FATIMA DO 719.47 PAIN IN JOINT INVOLVING ANKLE AND FOOT 11/03/2007 MADL BOILER CONTROL ROOM OPERATOR, TAMMY L 719.47 PAIN IN JOINT INVOLVING ANKLE AND FOOT 11/03/2007 MADL BOILER CONTROL ROOM OPERATOR, TAMMY L 719.47 PAIN IN JOINT INVOLVING ANKLE AND FOOT 11/03/2007 MADL BOILER CONTROL ROOM OPERATOR, TAMMY L 719.47 PAIN IN JOINT [...] joint pain, localized in the knee 04/17/2008 CASSI LANZA MD 719.46 joint pain, localized in the knee 04/17/2008 AC DURHAM APRN T 719.46 joint pain, localized in the [...] PAIN, LOCALIZED IN THE KNEE 04/17/2008 MADL BOILER CONTROL ROOM OPERATOR, TAMMY L 719.46 JOINT PAIN, LOCALIZED IN THE KNEE 04/17/2008 MADL BOILER CONTROL ROOM OPERATOR, TAMMY L 719.46 JOINT PAIN, LOCALIZED IN THE KNEE 04/17/2008 MADL BOILER CONTROL ROOM OPERATOR, TAMMY L 719.46 JOINT PAIN, LOCALIZED IN THE KNEE 04/17/2008 MADL BOILER CONTROL ROOM OPERATOR, TAMMY L 719.46 JOINT PAIN, LOCALIZED IN THE KNEE 04/17/2008 FATIMA DO, DENISE K 719.46 JOINT PAIN, LOCALIZED IN THE KNEE 04/17/2008 MADL BOILER CONTROL ROOM OPERATOR, TAMMY L 719.46 JOINT PAIN, LOCALIZED IN THE KNEE 04/17/2008 MADL BOILER CONTROL ROOM OPERATOR, TAMMY L 719.46 JOINT PAIN, LOCALIZED IN THE KNEE 04/17/2008 FATIMA DO, DENISE K 719.46 JOINT PAIN, LOCALIZED IN THE KNEE 04/17/2008 MADL BOILER CONTROL ROOM OPERATOR, TAMMY L 719.46 JOINT PAIN, LOCALIZED IN THE KNEE 04/17/2008 MADL BOILER CONTROL ROOM OPERATOR, TAMMY L 719.46 JOINT PAIN, LOCALIZED IN THE KNEE 04/17/2008 MADL BOILER CONTROL ROOM OPERATOR, TAMMY L 719.46 JOINT PAIN, LOCALIZED [...] 11/13/2008 LIEN TINEO MD 244.9 HYPOTHYROIDISM 11/13/2008 NOMAN NUÑEZ, LIEN 401.9 ESSENTIAL HYPERTENSION 11/13/2008 LIEN TINEO MD [...] K 729.5 pain in the hands 11/13/2008 CASSI LANZA MD 244.9 HYPOTHYROIDISM 11/13/2008 CASSI LANZA MD 401.9 ESSENTIAL HYPERTENSION 11/13/2008 CASSI LANZA MD [...] 729.5 PAIN IN THE HANDS 11/13/2008 MADL BOILER CONTROL ROOM OPERATOR, TAMMY L 244.9 HYPOTHYROIDISM 11/13/2008 MADL BOILER CONTROL ROOM OPERATOR, TAMMY L 401.9 ESSENTIAL HYPERTENSION 11/13/2008 MADL BOILER CONTROL ROOM OPERATOR, TAMMY L 493.90 ASTHMA 11/13/2008 MADL BOILER CONTROL ROOM OPERATOR, TAMMY L 729.5 PAIN IN THE HANDS 11/13/2008 MADL BOILER CONTROL ROOM OPERATOR, TAMMY L 244.9 HYPOTHYROIDISM 11/13/2008 MADL BOILER CONTROL ROOM OPERATOR, TAMMY L 401.9 ESSENTIAL HYPERTENSION 11/13/2008 MADL BOILER CONTROL ROOM OPERATOR, TAMMY L 493.90 ASTHMA 11/13/2008 MADL BOILER CONTROL ROOM OPERATOR, TAMMY L 729.5 PAIN IN THE HANDS 11/13/2008 MADL BOILER CONTROL ROOM OPERATOR, TAMMY L 244.9 HYPOTHYROIDISM 11/13/2008 MADL BOILER CONTROL ROOM OPERATOR, TAMMY L 401.9 ESSENTIAL HYPERTENSION 11/13/2008 MADL BOILER CONTROL ROOM OPERATOR, TAMMY L 493.90 ASTHMA 11/13/2008 MADL BOILER CONTROL ROOM OPERATOR, TAMMY L 729.5 PAIN IN THE HANDS 11/13/2008 MADL BOILER CONTROL ROOM OPERATOR, TAMMY L 244.9 HYPOTHYROIDISM 11/13/2008 MADL BOILER CONTROL ROOM OPERATOR, TAMMY L 401.9 ESSENTIAL HYPERTENSION 11/13/2008 MADL BOILER CONTROL ROOM OPERATOR, TAMMY L 493.90 ASTHMA 11/13/2008 MADL BOILER CONTROL ROOM OPERATOR, TAMMY L 729.5 PAIN IN THE HANDS 11/13/2008 FATIMA DO, DENISE K 244.9 HYPOTHYROIDISM 11/13/2008 FATIMA DO, DENISE K 401.9 ESSENTIAL HYPERTENSION 11/13/2008 FATIMA DO, DENISE K 493.90 ASTHMA 11/13/2008 FATIMA DO, DENISE K 729.5 PAIN IN THE HANDS 11/13/2008 MADL BOILER CONTROL ROOM OPERATOR, TAMMY L 244.9 HYPOTHYROIDISM 11/13/2008 MADL BOILER CONTROL ROOM OPERATOR, TAMMY L 401.9 ESSENTIAL HYPERTENSION 11/13/2008 MADL BOILER CONTROL ROOM OPERATOR, TAMMY L 493.90 ASTHMA 11/13/2008 MADL BOILER CONTROL ROOM OPERATOR, TAMMY L 729.5 PAIN IN THE HANDS 11/13/2008 MADL BOILER CONTROL ROOM OPERATOR, TAMMY L 244.9 HYPOTHYROIDISM 11/13/2008 MADL BOILER CONTROL ROOM OPERATOR, TAMMY L 401.9 ESSENTIAL HYPERTENSION 11/13/2008 MADL BOILER CONTROL ROOM OPERATOR, TAMMY L 493.90 ASTHMA 11/13/2008 MADL BOILER CONTROL ROOM OPERATOR, TAMMY L 729.5 PAIN IN THE HANDS 11/13/2008 FATIMA DO, DENISE K 244.9 HYPOTHYROIDISM 11/13/2008 FATIMA DO, DENISE K 401.9 ESSENTIAL HYPERTENSION 11/13/2008 FATIMA DO, DENISE K 493.90 ASTHMA 11/13/2008 FATIMA DO, DENISE K 729.5 PAIN IN THE HANDS 11/13/2008 MADL BOILER CONTROL ROOM OPERATOR, TAMMY L 244.9 HYPOTHYROIDISM 11/13/2008 MADL BOILER CONTROL ROOM OPERATOR, TAMMY L 401.9 ESSENTIAL HYPERTENSION 11/13/2008 MADL BOILER CONTROL ROOM OPERATOR, TAMMY L 493.90 ASTHMA 11/13/2008 MADL BOILER CONTROL ROOM OPERATOR, TAMMY L 729.5 PAIN IN THE HANDS 11/13/2008 MADL BOILER CONTROL ROOM OPERATOR, TAMMY L 244.9 HYPOTHYROIDISM 11/13/2008 MADL BOILER CONTROL ROOM OPERATOR, TAMMY L 401.9 ESSENTIAL HYPERTENSION 11/13/2008 MADL BOILER CONTROL ROOM OPERATOR, TAMMY L 493.90 ASTHMA 11/13/2008 MADL BOILER CONTROL ROOM OPERATOR, TAMMY L 729.5 PAIN IN THE HANDS 11/13/2008 MADL BOILER CONTROL ROOM OPERATOR, TAMMY L 244.9 HYPOTHYROIDISM 11/13/2008 MADL BOILER CONTROL ROOM OPERATOR, TAMMY L 401.9 ESSENTIAL HYPERTENSION 11/13/2008 MADL BOILER CONTROL ROOM OPERATOR, TAMMY L 493.90 ASTHMA 11/13/2008 MADL BOILER CONTROL ROOM OPERATOR, TAMMY L 729.5 PAIN IN THE HANDS 11/13/2008 FATIMA DO, DENISE K 244.9 HYPOTHYROIDISM 11/13/2008 FATIMA DO, DENISE K 401.9 ESSENTIAL HYPERTENSION 11/13/2008 FATIMA DO, DENISE K 493.90 ASTHMA 11/13/2008 FATIMA DO, DENISE K 729.5 PAIN IN THE HANDS 12/03/2008 LIEN TINEO MD 278.01 OBESITY MORBID 12/03/2008 LIEN TINEO MD 278.01 OBESITY MORBID 12/03/2008 LIEN TINEO MD 278.01 OBESITY MORBID 12/03/2008 FATIMA DO, DENISE K 278.01 OBESITY MORBID 12/03/2008 ODILON [...] DO, DENISE K 278.01 OBESITY MORBID 12/03/2008 PRASAD NUÑEZ, ODILON Santos 278.01 OBESITY MORBID 12/03/2008 FATIMA DO, DENISE K 278.01 OBESITY MORBID 12/03/2008 FATIMA DO, DENISE K 278.01 OBESITY MORBID 12/03/2008 MYLA NUÑEZ, CASSI M 278.01 OBESITY MORBID 12/03/2008 HERMINIO RAMIREZ, AC T 278.01 OBESITY MORBID 12/03/2008 PRASAD NUÑEZ, ODILON Santos 278.01 OBESITY MORBID 12/03/2008 PRASAD NUÑEZ, ODILON Santos 278.01 OBESITY MORBID 12/03/2008 FATIMA DO, DENISE K 278.01 OBESITY MORBID 12/03/2008 FATIMA DO, DENISE K 278.01 OBESITY MORBID 12/03/2008 FATIMA DO, DENISE K 278.01 OBESITY MORBID 12/03/2008 FATIMA DO, DENISE K 278.01 OBESITY MORBID 12/03/2008 FATIMA DO, DENISE K 278.01 OBESITY MORBID 12/03/2008 FATIMA DO, DENISE K 278.01 OBESITY MORBID 12/03/2008 MADL BOILER CONTROL ROOM OPERATOR, TAMMY L 278.01 OBESITY MORBID 12/03/2008 MADL BOILER CONTROL ROOM OPERATOR, TAMMY L 278.01 OBESITY MORBID 12/03/2008 MADL BOILER CONTROL ROOM OPERATOR, TAMMY L 278.01 OBESITY MORBID 12/03/2008 MADL BOILER CONTROL ROOM OPERATOR, TAMMY L 278.01 OBESITY MORBID 12/03/2008 FATIMA DO, DENISE K 278.01 OBESITY MORBID 12/03/2008 MADL BOILER CONTROL ROOM OPERATOR, TAMMY L 278.01 OBESITY MORBID 12/03/2008 MADL BOILER CONTROL ROOM OPERATOR, TAMMY L 278.01 OBESITY MORBID 12/03/2008 FATIMA DO, DENISE K 278.01 OBESITY MORBID 12/03/2008 MADL BOILER CONTROL ROOM OPERATOR, TAMMY L 278.01 OBESITY MORBID 12/03/2008 MADL BOILER CONTROL ROOM OPERATOR, TAMMY L 278.01 OBESITY MORBID 12/03/2008 MADL BOILER CONTROL ROOM OPERATOR, TAMMY L 278.01 OBESITY MORBID 12/03/2008 FATIMA DO, DENISE K 278.01 OBESITY MORBID 01/08/2009 NOMAN NUÑEZ, LIEN 715.04 OSTEOARTHRITIS GENERALIZED HAND 01/08/2009 LIEN TINEO MD5.04 OSTEOARTHRITIS GENERALIZED HAND 01/08/2009 HUERTER MD, LIEN 715.04 OSTEOARTHRITIS GENERALIZED HAND 01/08/2009 FATIMA DO DENISE K 715.04 OSTEOARTHRITIS GENERALIZED HAND 01/08/2009 PRASAD NUÑEZ, ODILON Santos 715.04 OSTEOARTHRITIS GENERALIZED HAND 01/08/2009 715.04 OSTEOARTHRITIS GENERALIZED HAND 01/08/2009 715.04 OSTEOARTHRITIS GENERALIZED HAND 01/08/2009 715.04 OSTEOARTHRITIS GENERALIZED HAND 01/08/2009 715.04 OSTEOARTHRITIS GENERALIZED HAND 01/08/2009 715.04 OSTEOARTHRITIS GENERALIZED HAND 01/08/2009 715.04 OSTEOARTHRITIS GENERALIZED HAND 01/08/2009 715.04 OSTEOARTHRITIS GENERALIZED HAND 01/08/2009 715.04 OSTEOARTHRITIS GENERALIZED HAND 01/08/2009 715.04 OSTEOARTHRITIS GENERALIZED HAND 01/08/2009 FATIMA DO DENISE K 715.04 OSTEOARTHRITIS GENERALIZED HAND 01/08/2009 FATIMA DO DENISE K 715.04 OSTEOARTHRITIS GENERALIZED HAND 01/08/2009 ODILON PARHAM MD 715.04 OSTEOARTHRITIS GENERALIZED HAND 01/08/2009 FATIMA DO DENISE Kyaw 715.04 OSTEOARTHRITIS GENERALIZED HAND 01/08/2009 FATIMA DO DENISE K 715.04 OSTEOARTHRITIS GENERALIZED HAND 01/08/2009 CASSI LANZA MD 715.04 OSTEOARTHRITIS GENERALIZED HAND 01/08/2009 AC DURHAM APRN 715.04 OSTEOARTHRITIS GENERALIZED HAND 01/08/2009 PRASAD NUÑEZ, ODILON Santos 715.04 OSTEOARTHRITIS GENERALIZED HAND 01/08/2009 ODILON PARHAM MD 715.04 OSTEOARTHRITIS GENERALIZED HAND 01/08/2009 FATIMA DO DENISE K 715.04 OSTEOARTHRITIS GENERALIZED HAND 01/08/2009 FATIMA DO DENISE K 715.04 OSTEOARTHRITIS GENERALIZED HAND 01/08/2009 FATIMA DO DENISE K 715.04 OSTEOARTHRITIS GENERALIZED HAND 01/08/2009 FATIMA DO DENISE K 715.04 OSTEOARTHRITIS GENERALIZED HAND 01/08/2009 FATIMA DO DENISE K 715.04 OSTEOARTHRITIS GENERALIZED HAND 01/08/2009 FATIMA DO DENISE K 715.04 OSTEOARTHRITIS GENERALIZED HAND 01/08/2009 MADL BOILER CONTROL ROOM OPERATOR, TAMMY L 715.04 OSTEOARTHRITIS GENERALIZED HAND 01/08/2009 MADL BOILER CONTROL ROOM OPERATOR, TAMMY L 715.04 OSTEOARTHRITIS GENERALIZED HAND 01/08/2009 MADL BOILER CONTROL ROOM OPERATOR, TAMMY L 715.04 OSTEOARTHRITIS GENERALIZED HAND 01/08/2009 MADL BOILER CONTROL ROOM OPERATOR, TAMMY L 715.04 OSTEOARTHRITIS GENERALIZED HAND 01/08/2009 FATIMA DO, DENISE K 715.04 OSTEOARTHRITIS GENERALIZED HAND 01/08/2009 MADL BOILER CONTROL ROOM OPERATOR, TAMMY L 715.04 OSTEOARTHRITIS GENERALIZED HAND 01/08/2009 MADL BOILER CONTROL ROOM OPERATOR, TAMMY L 715.04 OSTEOARTHRITIS GENERALIZED HAND 01/08/2009 FATIMA DO, DENISE K 715.04 OSTEOARTHRITIS GENERALIZED HAND 01/08/2009 MADL BOILER CONTROL ROOM OPERATOR, TAMMY L 715.04 OSTEOARTHRITIS GENERALIZED HAND 01/08/2009 MADL BOILER CONTROL ROOM OPERATOR, TAMMY L 715.04 OSTEOARTHRITIS GENERALIZED HAND 01/08/2009 MADL BOILER CONTROL ROOM OPERATOR, TAMMY L 715.04 OSTEOARTHRITIS GENERALIZED HAND [...] DENISE K 601.0 PROSTATITIS ACUTE BACTERIAL 02/20/2009 LANZA MD, CASSI M 601.0 PROSTATITIS ACUTE BACTERIAL 02/20/2009 HERMINIO RAMIREZ AC T 601.0 PROSTATITIS ACUTE BACTERIAL 02/20/2009 PRASAD NUÑEZ, ODILON Santos 601.0 PROSTATITIS ACUTE BACTERIAL 02/20/2009 PRASAD NUÑEZ, ODILON M 601.0 PROSTATITIS ACUTE BACTERIAL 02/20/2009 FATIMA DO, DENISE K 601.0 PROSTATITIS ACUTE BACTERIAL 02/20/2009 FATIMA DO, DENISE K 601.0 PROSTATITIS ACUTE BACTERIAL 02/20/2009 FATIMA DO, DENISE K 601.0 PROSTATITIS ACUTE BACTERIAL 02/20/2009 FATIMA DO, DENISE K 601.0 PROSTATITIS ACUTE BACTERIAL 02/20/2009 FATIMA DO, DENISE K 601.0 PROSTATITIS ACUTE BACTERIAL 02/20/2009 FATIMA DO, DENISE K 601.0 PROSTATITIS ACUTE BACTERIAL 02/20/2009 MADL BOILER CONTROL ROOM OPERATOR, TAMMY L 601.0 PROSTATITIS ACUTE BACTERIAL 02/20/2009 MADL BOILER CONTROL ROOM OPERATOR, TAMMY L 601.0 PROSTATITIS ACUTE BACTERIAL 02/20/2009 MADL BOILER CONTROL ROOM OPERATOR, TAMMY L 601.0 PROSTATITIS ACUTE BACTERIAL 02/20/2009 MADL BOILER CONTROL ROOM OPERATOR, TMAMY L 601.0 PROSTATITIS ACUTE BACTERIAL 02/20/2009 FATIMA DO, DENISE K 601.0 PROSTATITIS ACUTE BACTERIAL 02/20/2009 MADL BOILER CONTROL ROOM OPERATOR, TAMMY L 601.0 PROSTATITIS ACUTE BACTERIAL 02/20/2009 MADL BOILER CONTROL ROOM OPERATOR, TAMMY L 601.0 PROSTATITIS ACUTE BACTERIAL 02/20/2009 FATIMA DO, DENISE K 601.0 PROSTATITIS ACUTE BACTERIAL 02/20/2009 MADL BOILER CONTROL ROOM OPERATOR, TAMMY L 601.0 PROSTATITIS ACUTE BACTERIAL 02/20/2009 MADL BOILER CONTROL ROOM OPERATOR, TAMMY L 601.0 PROSTATITIS ACUTE BACTERIAL 02/20/2009 MADL BOILER CONTROL ROOM OPERATOR, TAMMY L 601.0 PROSTATITIS ACUTE BACTERIAL 02/20/2009 FATIMA DO, DENISE K 601.0 PROSTATITIS ACUTE BACTERIAL 03/08/2009 NOMAN NUÑEZ, LIEN 461.9 SINUSITIS ACUTE 03/08/2009 LIEN TINEO MD 461.9 SINUSITIS ACUTE 03/08/2009 LIEN TINEO MD 461.9 SINUSITIS ACUTE 03/08/2009 FATIMA DO, DENISE K 461.9 SINUSITIS ACUTE 03/08/2009 PRASAD NUÑEZ, ODILON Santos 461.9 SINUSITIS ACUTE 03/08/2009 461.9 SINUSITIS ACUTE [...] CASSI Santos 461.9 SINUSITIS ACUTE 03/08/2009 HERMINIO BOILER CONTROL ROOM OPERATOR, AC T 461.9 SINUSITIS ACUTE 03/08/2009 PRASAD NUÑEZ, ODILON Santos 461.9 SINUSITIS ACUTE 03/08/2009 ODILON PARHAM MD 461.9 SINUSITIS ACUTE 03/08/2009 FATIMA DO, DENISE K 461.9 SINUSITIS ACUTE 03/08/2009 FATIMA DO, DENISE K 461.9 SINUSITIS ACUTE 03/08/2009 FATIMA DO, DENISE K 461.9 SINUSITIS ACUTE 03/08/2009 FATIMA DO, DENISE K 461.9 SINUSITIS ACUTE 03/08/2009 FATIMA DO, DENISE K 461.9 SINUSITIS ACUTE 03/08/2009 FATIMA DO, DENISE K 461.9 SINUSITIS ACUTE 03/08/2009 MADL BOILER CONTROL ROOM OPERATOR, TAMMY L 461.9 SINUSITIS ACUTE 03/08/2009 MADL BOILER CONTROL ROOM OPERATOR, TAMMY L 461.9 SINUSITIS ACUTE 03/08/2009 MADL BOILER CONTROL ROOM OPERATOR, TAMMY L 461.9 SINUSITIS ACUTE 03/08/2009 MADL BOILER CONTROL ROOM OPERATOR, TAMMY L 461.9 SINUSITIS ACUTE 03/08/2009 FATIMA DO, DENISE K 461.9 SINUSITIS ACUTE 03/08/2009 MADL BOILER CONTROL ROOM OPERATOR, TAMMY L 461.9 SINUSITIS ACUTE 03/08/2009 MADL BOILER CONTROL ROOM OPERATOR, TAMMY L 461.9 SINUSITIS ACUTE 03/08/2009 FATIMA DO, DENISE K 461.9 SINUSITIS ACUTE 03/08/2009 MADL BOILER CONTROL ROOM OPERATOR, TAMMY L 461.9 SINUSITIS ACUTE 03/08/2009 MADL BOILER CONTROL ROOM OPERATOR, TAMMY L 461.9 SINUSITIS ACUTE 03/08/2009 MADL BOILER CONTROL ROOM OPERATOR, TAMMY L 461.9 SINUSITIS ACUTE 03/08/2009 FATIMA DO, DENISE K 461.9 SINUSITIS ACUTE 04/09/2009 LIEN TINEO MD 477.9 ALLERGIC RHINITIS 04/09/2009 LIEN TINEO MD 477.9 ALLERGIC RHINITIS 04/09/2009 LIEN TINEO MD 477.9 ALLERGIC RHINITIS 04/09/2009 AKUA HERNANDEZ DENISE K 477.9 ALLERGIC RHINITIS 04/09/2009 ODILON PARHAM MD 477.9 ALLERGIC RHINITIS 04/09/2009 477.9 ALLERGIC RHINITIS 04/09/2009 477.9 ALLERGIC RHINITIS 04/09/2009 477.9 ALLERGIC RHINITIS 04/09/2009 477.9 ALLERGIC RHINITIS 04/09/2009 477.9 ALLERGIC RHINITIS 04/09/2009 477.9 ALLERGIC RHINITIS 04/09/2009 477.9 ALLERGIC RHINITIS 04/09/2009 477.9 ALLERGIC RHINITIS 04/09/2009 477.9 ALLERGIC RHINITIS 04/09/2009 FATIMA DO DENISE K 477.9 ALLERGIC RHINITIS 04/09/2009 FATIMA DO, DENISE K 477.9 ALLERGIC RHINITIS 04/09/2009 ODILON PARHAM MD 477.9 ALLERGIC RHINITIS 04/09/2009 FATIMA DO DENISE K 477.9 ALLERGIC RHINITIS 04/09/2009 FATIMA DO DENISE K 477.9 ALLERGIC RHINITIS 04/09/2009 MYLA NUÑEZ, CASSI Santos 477.9 ALLERGIC RHINITIS 04/09/2009 AC DURHAM APRN 477.9 ALLERGIC RHINITIS 04/09/2009 ODILON PARHAM MD 477.9 ALLERGIC RHINITIS 04/09/2009 PRASAD NUÑEZ, ODILON Santos 477.9 ALLERGIC RHINITIS 04/09/2009 FATIMA DO, DENISE K 477.9 ALLERGIC RHINITIS 04/09/2009 FATIMA DO, DENISE K 477.9 ALLERGIC RHINITIS 04/09/2009 FATIMA DO, DENISE K 477.9 ALLERGIC RHINITIS 04/09/2009 FATIMA DO, DENISE K 477.9 ALLERGIC RHINITIS 04/09/2009 FATIMA DO, DENISE K 477.9 ALLERGIC RHINITIS 04/09/2009 FATIMA DO, DENISE K 477.9 ALLERGIC RHINITIS 04/09/2009 MADL BOILER CONTROL ROOM OPERATOR, TAMMY L 477.9 ALLERGIC RHINITIS 04/09/2009 MADL BOILER CONTROL ROOM OPERATOR, TAMMY L 477.9 ALLERGIC RHINITIS 04/09/2009 MADL BOILER CONTROL ROOM OPERATOR, TAMMY L 477.9 ALLERGIC RHINITIS 04/09/2009 MADL BOILER CONTROL ROOM OPERATOR, TAMMY L 477.9 ALLERGIC RHINITIS 04/09/2009 FATIMA DO, DENISE K 477.9 ALLERGIC RHINITIS 04/09/2009 MADL BOILER CONTROL ROOM OPERATOR, TAMMY L 477.9 ALLERGIC RHINITIS 04/09/2009 MADL BOILER CONTROL ROOM OPERATOR, TAMMY L 477.9 ALLERGIC RHINITIS 04/09/2009 FATIMA DO, DENISE K 477.9 ALLERGIC RHINITIS 04/09/2009 MADL BOILER CONTROL ROOM OPERATOR, TAMMY L 477.9 ALLERGIC RHINITIS 04/09/2009 MADL BOILER CONTROL ROOM OPERATOR, TAMMY L 477.9 ALLERGIC RHINITIS 04/09/2009 MADL BOILER CONTROL ROOM OPERATOR, TAMMY L 477.9 ALLERGIC RHINITIS 04/09/2009 FATIMA DO, DENISE K 477.9 ALLERGIC RHINITIS 04/23/2009 LIEN TINEO MD 789.00 abdominal pain 04/23/2009 LIEN TINEO MD 789.00 abdominal pain 04/23/2009 LIEN TINEO MD 789.00 abdominal pain 04/23/2009 FATIMA DO, DENISE K 789.00 abdominal pain 04/23/2009 PRASAD NUÑEZ, ODILON Santos 789.00 abdominal pain 04/23/2009 789.00 abdominal pain 04/23/2009 789.00 abdominal pain 04/23/2009 789.00 abdominal pain 04/23/2009 789.00 abdominal pain 04/23/2009 789.00 abdominal pain 04/23/2009 789.00 abdominal pain 04/23/2009 789.00 abdominal pain 04/23/2009 789.00 abdominal pain 04/23/2009 789.00 abdominal pain 04/23/2009 FATIMA DO, DENISE K 789.00 abdominal pain 04/23/2009 FATIMA DO, DENISE K 789.00 abdominal pain 04/23/2009 PRASAD NUÑEZ, ODILON Santos 789.00 abdominal pain 04/23/2009 FATIMA DO, DENISE K 789.00 abdominal pain 04/23/2009 FATIMA DO, DENISE K 789.00 abdominal pain 04/23/2009 MYLA NUÑEZ, CASSI Santos 789.00 abdominal pain 04/23/2009 AC DURHAM APRN [...] DENISE K 789.00 ABDOMINAL PAIN 04/23/2009 MADL BOILER CONTROL ROOM OPERATOR, TAMMY L 789.00 ABDOMINAL PAIN 04/23/2009 MADL BOILER CONTROL ROOM OPERATOR, TAMMY L 789.00 ABDOMINAL PAIN 04/23/2009 MADL BOILER CONTROL ROOM OPERATOR, TAMMY L 789.00 ABDOMINAL PAIN 04/23/2009 MADL BOILER CONTROL ROOM OPERATOR, TAMMY L 789.00 ABDOMINAL PAIN 04/23/2009 FATIMA DO, DENISE K 789.00 ABDOMINAL PAIN 04/23/2009 MADL BOILER CONTROL ROOM OPERATOR, TAMMY L 789.00 ABDOMINAL PAIN 04/23/2009 MADL BOILER CONTROL ROOM OPERATOR, TAMMY L 789.00 ABDOMINAL PAIN 04/23/2009 FATIMA DO, DENISE K 789.00 ABDOMINAL PAIN 04/23/2009 MADL BOILER CONTROL ROOM OPERATOR, TAMMY L 789.00 ABDOMINAL PAIN 04/23/2009 MADL BOILER CONTROL ROOM OPERATOR, TAMMY L 789.00 ABDOMINAL PAIN 04/23/2009 MADL BOILER CONTROL ROOM OPERATOR, TAMMY L 789.00 ABDOMINAL PAIN 04/23/2009 FATIMA DO, DENISE K 789.00 ABDOMINAL PAIN 05/09/2009 NOMAN NUÑEZ, LIEN 388.30 TINNITUS 05/09/2009 NOMAN NUÑEZ, LIEN 388.30 TINNITUS 05/09/2009 [...] 05/09/2009 AC DURHAM APRN 388.30 TINNITUS 05/09/2009 ODILON PARHAM MD 388.30 TINNITUS 05/09/2009 ODILON PARHAM MD 388.30 TINNITUS 05/09/2009 FATIMA DO, DENISE K 388.30 TINNITUS 05/09/2009 FATIMA DO, DENISE K 388.30 TINNITUS 05/09/2009 FATIMA DO, DENISE K 388.30 TINNITUS 05/09/2009 FATIMA DO, DENISE K 388.30 TINNITUS 05/09/2009 FATIMA DO, DENISE K 388.30 TINNITUS 05/09/2009 FATIMA DO, DENISE K 388.30 TINNITUS 05/09/2009 MADL BOILER CONTROL ROOM OPERATOR, TAMMY L 388.30 TINNITUS 05/09/2009 MADL BOILER CONTROL ROOM OPERATOR, TAMMY L 388.30 TINNITUS 05/09/2009 MADL BOILER CONTROL ROOM OPERATOR, TAMMY L 388.30 TINNITUS 05/09/2009 MADL BOILER CONTROL ROOM OPERATOR, TAMMY L 388.30 TINNITUS 05/09/2009 FATIMA DO, DENISE K 388.30 TINNITUS 05/09/2009 MADL BOILER CONTROL ROOM OPERATOR, TAMMY L 388.30 TINNITUS 05/09/2009 MADL BOILER CONTROL ROOM OPERATOR, TAMMY L 388.30 TINNITUS 05/09/2009 FATIMA DO, DENISE K 388.30 TINNITUS 05/09/2009 MADL BOILER CONTROL ROOM OPERATOR, TAMMY L 388.30 TINNITUS 05/09/2009 MADL BOILER CONTROL ROOM OPERATOR, TAMMY L 388.30 TINNITUS 05/09/2009 MADL BOILER CONTROL ROOM OPERATOR, TAMMY L 388.30 TINNITUS 05/09/2009 FATIMA DO, DENISE K 388.30 TINNITUS 08/01/2009 LIEN TINEO [...] 780.79 OTHER MALAISE AND FATIGUE 08/01/2009 FATIMA DO DENISE K 780.79 OTHER MALAISE AND FATIGUE 08/01/2009 ODILON PARHAM MD 780.79 OTHER MALAISE AND FATIGUE 08/01/2009 FATIMA DO DENISE K 780.79 OTHER MALAISE AND FATIGUE 08/01/2009 FATIMA DO DENISE K 780.79 OTHER MALAISE AND FATIGUE [...] 780.79 OTHER MALAISE AND FATIGUE 08/01/2009 MADL BOILER CONTROL ROOM OPERATOR, TAMMY L 780.79 OTHER MALAISE AND FATIGUE 08/01/2009 MADL BOILER CONTROL ROOM OPERATOR, TAMMY L 780.79 OTHER MALAISE AND FATIGUE 08/01/2009 MADL BOILER CONTROL ROOM OPERATOR, TAMMY L 780.79 OTHER MALAISE AND FATIGUE 08/01/2009 MADL BOILER CONTROL ROOM OPERATOR, TAMMY L 780.79 OTHER MALAISE AND FATIGUE 08/01/2009 FATIMA DO, DENISE K 780.79 OTHER MALAISE AND FATIGUE 08/01/2009 MADL BOILER CONTROL ROOM OPERATOR, TMAMY L 780.79 OTHER MALAISE AND FATIGUE 08/01/2009 MADL BOILER CONTROL ROOM OPERATOR, TAMMY L 780.79 OTHER MALAISE AND FATIGUE 08/01/2009 FATIMA DO, DENISE K 780.79 OTHER MALAISE AND FATIGUE 08/01/2009 MADL BOILER CONTROL ROOM OPERATOR, TAMMY L 780.79 OTHER MALAISE AND FATIGUE 08/01/2009 MADL BOILER CONTROL ROOM OPERATOR, TAMMY L 780.79 OTHER MALAISE AND FATIGUE 08/01/2009 MADL BOILER CONTROL ROOM OPERATOR, TAMMY L 780.79 OTHER MALAISE AND FATIGUE 08/01/2009 FATIMA DO, DENISE K 780.79 OTHER MALAISE AND FATIGUE 12/24/2009 LIEN TINEO MD 401.1 HYPERTENSION, BENIGN ESSENTIAL 12/24/2009 LIEN TINEO MD 716.90 ARTHRITIS/ ARTHROPATHY, UNSPECIFIED 12/24/2009 NOMAN NUÑEZ, LIEN 401.1 HYPERTENSION, BENIGN ESSENTIAL 12/24/2009 NOMAN NUÑEZ, LIEN 716.90 ARTHRITIS/ ARTHROPATHY, UNSPECIFIED 12/24/2009 NOMAN NUÑEZ, LIEN 401.1 HYPERTENSION, BENIGN ESSENTIAL 12/24/2009 NOMAN NUÑEZ, LIEN 716.90 ARTHRITIS/ ARTHROPATHY, UNSPECIFIED 12/24/2009 FATIMA DO, DENISE K 401.1 HYPERTENSION, BENIGN ESSENTIAL 12/24/2009 FATIMA DO, DENISE K 716.90 ARTHRITIS/ ARTHROPATHY, UNSPECIFIED 12/24/2009 [...] FATIMA DO, DENISE K 716.90 ARTHROPATHY 12/24/2009 PRASAD NUÑEZ, ODILON Santos 401.1 ESSENTIAL HYPERTENSION BENIGN 12/24/2009 ODILON PARHAM MD 716.90 ARTHROPATHY 12/24/2009 FATIMA DO, DENISE K 401.1 ESSENTIAL HYPERTENSION BENIGN 12/24/2009 FATIMA DO, DENISE K 716.90 ARTHROPATHY 12/24/2009 FATIMA DO, DENISE K 401.1 ESSENTIAL HYPERTENSION BENIGN 12/24/2009 FATIMA DO, DENISE K 716.90 ARTHROPATHY 12/24/2009 MYLA NUÑEZ, CASSI M 401.1 ESSENTIAL HYPERTENSION BENIGN 12/24/2009 MYLA NUÑEZ, CASSI M 716.90 ARTHROPATHY 12/24/2009 HERMINIO HENSLEYN, AC T 401.1 ESSENTIAL HYPERTENSION BENIGN 12/24/2009 HERMINIO RAMIREZ, AC T 716.90 ARTHROPATHY 12/24/2009 PRASAD NUÑEZ, ODILON Santos 401.1 ESSENTIAL HYPERTENSION BENIGN 12/24/2009 PRASAD NUÑEZ, ODILON Santos 716.90 ARTHROPATHY 12/24/2009 PRASAD NUÑEZ, ODILON Santos 401.1 ESSENTIAL HYPERTENSION BENIGN 12/24/2009 PRASAD NUÑEZ, ODILON Santos 716.90 ARTHROPATHY 12/24/2009 FATIMA DO, DENISE K [...] DO, DENISE K 716.90 ARTHROPATHY 12/24/2009 MADL BOILER CONTROL ROOM OPERATOR, TAMMY L 401.1 ESSENTIAL HYPERTENSION BENIGN 12/24/2009 MADL BOILER CONTROL ROOM OPERATOR, TAMMY L 716.90 ARTHROPATHY 12/24/2009 MADL BOILER CONTROL ROOM OPERATOR, TAMMY L 401.1 ESSENTIAL HYPERTENSION BENIGN 12/24/2009 MADL BOILER CONTROL ROOM OPERATOR, TAMMY L 716.90 ARTHROPATHY 12/24/2009 MADL BOILER CONTROL ROOM OPERATOR, TAMMY L 401.1 ESSENTIAL HYPERTENSION BENIGN 12/24/2009 MADL BOILER CONTROL ROOM OPERATOR, TAMMY L 716.90 ARTHROPATHY 12/24/2009 MADL BOILER CONTROL ROOM OPERATOR, TAMMY L 401.1 ESSENTIAL HYPERTENSION BENIGN 12/24/2009 MADL BOILER CONTROL ROOM OPERATOR, TAMMY L 716.90 ARTHROPATHY 12/24/2009 FATIMA DO, DENISE K 401.1 ESSENTIAL HYPERTENSION BENIGN 12/24/2009 FATIMA DO, DENISE K 716.90 ARTHROPATHY 12/24/2009 MADL BOILER CONTROL ROOM OPERATOR, TAMMY L 401.1 ESSENTIAL HYPERTENSION BENIGN 12/24/2009 MADL BOILER CONTROL ROOM OPERATOR, TAMMY L 716.90 ARTHROPATHY 12/24/2009 MADL BOILER CONTROL ROOM OPERATOR, TAMMY L 401.1 ESSENTIAL HYPERTENSION BENIGN 12/24/2009 MADL BOILER CONTROL ROOM OPERATOR, TAMMY L 716.90 ARTHROPATHY 12/24/2009 FATIMA DO, DENISE K 401.1 ESSENTIAL HYPERTENSION BENIGN 12/24/2009 FATIMA DO, DENISE K 716.90 ARTHROPATHY 12/24/2009 MADL BOILER CONTROL ROOM OPERATOR, TAMMY L 401.1 ESSENTIAL HYPERTENSION BENIGN 12/24/2009 MADL BOILER CONTROL ROOM OPERATOR, TAMMY L 716.90 ARTHROPATHY 12/24/2009 MADL BOILER CONTROL ROOM OPERATOR, TAMMY L 401.1 ESSENTIAL HYPERTENSION BENIGN 12/24/2009 MADL BOILER CONTROL ROOM OPERATOR, TAMMY L 716.90 ARTHROPATHY 12/24/2009 MADL BOILER CONTROL ROOM OPERATOR, TAMMY L 401.1 ESSENTIAL HYPERTENSION BENIGN 12/24/2009 MADL BOILER CONTROL ROOM OPERATOR, TAMMY L 716.90 ARTHROPATHY 12/24/2009 FATIMA DO, DENISE K 401.1 ESSENTIAL HYPERTENSION BENIGN 12/24/2009 FATIMA DO, DENISE K 716.90 ARTHROPATHY 05/12/2010 NOMAN NUÑEZ, LIEN 354.0 CARPAL TUNNEL SYNDROME 05/12/2010 NOMAN NUÑEZ, LIEN 354.0 CARPAL TUNNEL SYNDROME 05/12/2010 NOMAN NUÑEZ, LIEN 354.0 CARPAL TUNNEL SYNDROME 05/12/2010 FATIMA DO, [...] SYNDROME 05/12/2010 354.0 CARPAL TUNNEL SYNDROME 05/12/2010 FATIMA DO, DENISE K 354.0 CARPAL TUNNEL SYNDROME 05/12/2010 FATIMA DO, DENISE K 354.0 CARPAL TUNNEL SYNDROME 05/12/2010 PRASAD NUÑEZ, ODILON Santos 354.0 CARPAL TUNNEL SYNDROME 05/12/2010 FATIMA DO, DENISE K 354.0 CARPAL TUNNEL SYNDROME 05/12/2010 FATIMA DO, DENISE K 354.0 CARPAL TUNNEL SYNDROME 05/12/2010 MYLA NUÑEZ, CASSI Santos 354.0 CARPAL TUNNEL SYNDROME 05/12/2010 AC DURHAM APRN 354.0 CARPAL TUNNEL SYNDROME 05/12/2010 PRASAD NUÑEZ, ODILON Santos 354.0 CARPAL TUNNEL SYNDROME 05/12/2010 ODILON PARHAM MD 354.0 CARPAL TUNNEL SYNDROME 05/12/2010 FATIMA DO, DENISE K 354.0 CARPAL TUNNEL SYNDROME 05/12/2010 FATIMA DO, DENISE K 354.0 CARPAL TUNNEL SYNDROME 05/12/2010 FATIMA DO, DENISE K 354.0 CARPAL TUNNEL SYNDROME 05/12/2010 FATIMA DO, DENISE K 354.0 CARPAL TUNNEL SYNDROME 05/12/2010 FATIMA DO, DENISE K 354.0 CARPAL TUNNEL SYNDROME 05/12/2010 FATIMA DO, DENISE K 354.0 CARPAL TUNNEL SYNDROME 05/12/2010 MADL BOILER CONTROL ROOM OPERATOR, TAMMY L 354.0 CARPAL TUNNEL SYNDROME 05/12/2010 MADL BOILER CONTROL ROOM OPERATOR, TAMMY L 354.0 CARPAL TUNNEL SYNDROME 05/12/2010 MADL BOILER CONTROL ROOM OPERATOR, TAMMY L 354.0 CARPAL TUNNEL SYNDROME 05/12/2010 MADL BOILER CONTROL ROOM OPERATOR, TAMMY L 354.0 CARPAL TUNNEL SYNDROME 05/12/2010 FATIMA DO, DENISE K 354.0 CARPAL TUNNEL SYNDROME 05/12/2010 MADL BOILER CONTROL ROOM OPERATOR, TAMMY L 354.0 CARPAL TUNNEL SYNDROME 05/12/2010 MADL BOILER CONTROL ROOM OPERATOR, TAMMY L 354.0 CARPAL TUNNEL SYNDROME 05/12/2010 FATIMA DO, DENISE K 354.0 CARPAL TUNNEL SYNDROME 05/12/2010 MADL BOILER CONTROL ROOM OPERATOR, TAMMY L 354.0 CARPAL TUNNEL SYNDROME 05/12/2010 MADL BOILER CONTROL ROOM OPERATOR, TAMMY L 354.0 CARPAL TUNNEL SYNDROME 05/12/2010 MADL BOILER CONTROL ROOM OPERATOR, TAMMY L 354.0 CARPAL TUNNEL SYNDROME 05/12/2010 FATIMA DO, DENISE K 354.0 CARPAL TUNNEL SYNDROME 06/20/2010 NOMAN NUÑEZ, LIEN 278.00 OBESITY 06/20/2010 NOMAN NUÑEZ, LIEN 278.00 OBESITY 06/20/2010 LIEN TINEO MD 278.00 OBESITY 06/20/2010 FATIMA DO, DENISE K 278.00 OBESITY 06/20/2010 ODILON PARHAM MD 278.00 OBESITY 06/20/2010 278.00 OBESITY 06/20/2010 278.00 OBESITY 06/20/2010 278.00 OBESITY 06/20/2010 278.00 OBESITY 06/20/2010 278.00 OBESITY 06/20/2010 278.00 OBESITY 06/20/2010 278.00 OBESITY 06/20/2010 278.00 OBESITY 06/20/2010 278.00 OBESITY 06/20/2010 FATIMA DO, DENISE K 278.00 OBESITY 06/20/2010 FATIMA DO, DENISE K 278.00 OBESITY 06/20/2010 ODILON PARHAM MD 278.00 OBESITY 06/20/2010 FATIMA DO, DENISE K 278.00 OBESITY 06/20/2010 FATIMA DO, DENISE K 278.00 OBESITY 06/20/2010 MYLA NUÑEZ, CASSI Santos 278.00 OBESITY 06/20/2010 AC DURHAM APRN 278.00 OBESITY 06/20/2010 ODILON PARHAM MD 278.00 OBESITY 06/20/2010 ODILON PARHAM MD 278.00 OBESITY 06/20/2010 FATIMA DO, DENISE K 278.00 OBESITY 06/20/2010 FATIMA DO, DENISE K 278.00 OBESITY 06/20/2010 FATIMA DO, DENISE K 278.00 OBESITY 06/20/2010 FATIMA DO, DENISE K 278.00 OBESITY 06/20/2010 FATIMA DO, DENISE K 278.00 OBESITY 06/20/2010 FATIMA DO, DENISE K 278.00 OBESITY 06/20/2010 MADL BOILER CONTROL ROOM OPERATOR, TAMMY L 278.00 OBESITY 06/20/2010 MADL BOILER CONTROL ROOM OPERATOR, TAMMY L 278.00 OBESITY 06/20/2010 MADL BOILER CONTROL ROOM OPERATOR, TAMMY L 278.00 OBESITY 06/20/2010 MADL BOILER CONTROL ROOM OPERATOR, TAMMY L 278.00 OBESITY 06/20/2010 FATIMA DO, DENISE K 278.00 OBESITY 06/20/2010 MADL BOILER CONTROL ROOM OPERATOR, TAMMY L 278.00 OBESITY 06/20/2010 MADL BOILER CONTROL ROOM OPERATOR, TAMMY L 278.00 OBESITY 06/20/2010 FATIMA DO, DENISE K 278.00 OBESITY 06/20/2010 MADL BOILER CONTROL ROOM OPERATOR, TAMMY L 278.00 OBESITY 06/20/2010 MADL BOILER CONTROL ROOM OPERATOR, TAMMY L 278.00 OBESITY 06/20/2010 MADL BOILER CONTROL ROOM OPERATOR, TAMMY L 278.00 OBESITY 06/20/2010 FATIMA DO, DENISE K 278.00 OBESITY 07/10/2010 LIEN TINEO MD 733.92 CHONDROMALACIA 07/10/2010 LIEN TINEO MD 733.92 CHONDROMALACIA 07/10/2010 LIEN TINEO MD 733.92 CHONDROMALACIA 07/10/2010 FATIMA DENISE HERNANDEZ K 733.92 CHONDROMALACIA 07/10/2010 ODILON PARHAM MD [...] FATIMA DO, DENISE K 733.92 CHONDROMALACIA 07/10/2010 MYLA NUÑEZ, CASSI Santos 733.92 CHONDROMALACIA 07/10/2010 AC DURHAM APRN 733.92 CHONDROMALACIA 07/10/2010 PRASAD NUÑEZ, ODILON Santos 733.92 CHONDROMALACIA 07/10/2010 PRASAD NUÑEZ, ODILON Santos 733.92 CHONDROMALACIA 07/10/2010 FATIMA DO, DENISE K 733.92 CHONDROMALACIA 07/10/2010 FATIMA DO, DENISE K 733.92 CHONDROMALACIA 07/10/2010 FATIMA DO, DENISE K 733.92 CHONDROMALACIA 07/10/2010 FATIMA DO, DENISE K 733.92 CHONDROMALACIA 07/10/2010 FATIMA DO, DENISE K 733.92 CHONDROMALACIA 07/10/2010 FATIMA DO, DENISE K 733.92 CHONDROMALACIA 07/10/2010 MADL BOILER CONTROL ROOM OPERATOR, TAMMY L 733.92 CHONDROMALACIA 07/10/2010 MADL BOILER CONTROL ROOM OPERATOR, TAMMY L 733.92 CHONDROMALACIA 07/10/2010 MADL BOILER CONTROL ROOM OPERATOR, TAMMY L 733.92 CHONDROMALACIA 07/10/2010 MADL BOILER CONTROL ROOM OPERATOR, TAMMY L 733.92 CHONDROMALACIA 07/10/2010 FATIMA DO, DENISE K 733.92 CHONDROMALACIA 07/10/2010 MADL BOILER CONTROL ROOM OPERATOR, TAMMY L 733.92 CHONDROMALACIA 07/10/2010 MADL BOILER CONTROL ROOM OPERATOR, TAMMY L 733.92 CHONDROMALACIA 07/10/2010 FATIMA DO, DENISE K 733.92 CHONDROMALACIA 07/10/2010 MADL BOILER CONTROL ROOM OPERATOR, TAMMY L 733.92 CHONDROMALACIA 07/10/2010 MADL BOILER CONTROL ROOM OPERATOR, TAMMY L 733.92 CHONDROMALACIA 07/10/2010 MADL BOILER CONTROL ROOM OPERATOR, TAMMY L 733.92 CHONDROMALACIA 07/10/2010 FATIMA DO, DENISE K 733.92 CHONDROMALACIA 09/19/2010 NOMAN NUÑEZ, LIEN 355.5 TARSUS TUNNEL SYNDROME 09/19/2010 LIEN TINEO MD 715.27 DJD-SECONDARY 09/19/2010 NOMAN NUÑEZ, LIEN 355.5 TARSUS TUNNEL SYNDROME 09/19/2010 LIEN TINEO MD 715.27 DJD-SECONDARY 09/19/2010 NOMAN NUÑEZ, LIEN 355.5 TARSUS TUNNEL SYNDROME 09/19/2010 LIEN TINEO MD 715.27 DJD-SECONDARY 09/19/2010 KHADRA FATIMA DOA K 355.5 TARSUS TUNNEL SYNDROME 09/19/2010 KHADRA FATIMA DOA K 715.27 DJD-SECONDARY 09/19/2010 ODILON PARHAM MD 355.5 TARSUS TUNNEL SYNDROME 09/19/2010 ODILON PARHAM MD 715.27 DJD-SECONDARY 09/19/2010 355.5 TARSUS TUNNEL SYNDROME 09/19/2010 715.27 DJD- SECONDARY 09/19/2010 355.5 TARSUS TUNNEL SYNDROME 09/19/2010 715.27 DJD- SECONDARY 09/19/2010 355.5 TARSUS TUNNEL SYNDROME 09/19/2010 715.27 DJD- SECONDARY 09/19/2010 355.5 TARSUS TUNNEL SYNDROME 09/19/2010 715.27 DJD- SECONDARY 09/19/2010 355.5 TARSUS TUNNEL SYNDROME 09/19/2010 715.27 DJD- SECONDARY 09/19/2010 355.5 TARSUS TUNNEL SYNDROME 09/19/2010 715.27 DJD- SECONDARY 09/19/2010 355.5 TARSUS TUNNEL SYNDROME 09/19/2010 715.27 DJD- SECONDARY 09/19/2010 355.5 TARSUS TUNNEL SYNDROME 09/19/2010 715.27 DJD- SECONDARY 09/19/2010 355.5 TARSUS TUNNEL SYNDROME 09/19/2010 715.27 DJD- SECONDARY 09/19/2010 AKUA HERNANDEZ DENISE K 355.5 TARSUS TUNNEL SYNDROME 09/19/2010 AKUA HERNANDEZ DENISE K 715.27 DJD-SECONDARY 09/19/2010 FATIMA DO DENISE K 355.5 TARSUS TUNNEL SYNDROME 09/19/2010 FATIMA DO DENISE K 715.27 DJD-SECONDARY 09/19/2010 ODILON PARHAM [...] DURHAM APRN 355.5 TARSUS TUNNEL SYNDROME 09/19/2010 AC DURHAM APRN 715.27 DJD-SECONDARY 09/19/2010 PRASAD NUÑEZ, ODILON Santos 355.5 TARSUS TUNNEL SYNDROME 09/19/2010 PRASAD NUÑEZ, ODILON Santos 715.27 DJD-SECONDARY 09/19/2010 PRASAD NUÑEZ, ODILON Santos 355.5 TARSUS TUNNEL SYNDROME 09/19/2010 PRASAD NUÑEZ, ODILON Santos 715.27 DJD-SECONDARY 09/19/2010 FATIMA DO, DENISE K [...] FATIMA DO, DENISE K 715.27 DJD-SECONDARY 09/19/2010 LAM COPELAND APRNA L 355.5 TARSUS TUNNEL SYNDROME 09/19/2010 MIN RAMIREZ TAMMY L 715.27 DJD-SECONDARY 09/19/2010 MADL BOILER CONTROL ROOM OPERATOR, TAMMY L 355.5 TARSUS TUNNEL SYNDROME 09/19/2010 MADL BOILER CONTROL ROOM OPERATOR, TAMMY L 715.27 DJD-SECONDARY 09/19/2010 MADL BOILER CONTROL ROOM OPERATOR, TAMMY L 355.5 TARSUS TUNNEL SYNDROME 09/19/2010 MADL BOILER CONTROL ROOM OPERATOR, TAMMY L 715.27 DJD-SECONDARY 09/19/2010 MADL BOILER CONTROL ROOM OPERATOR, TAMMY L 355.5 TARSUS TUNNEL SYNDROME 09/19/2010 MADL BOILER CONTROL ROOM OPERATOR, TAMMY L 715.27 DJD-SECONDARY 09/19/2010 FATIMA DO, DENISE K 355.5 TARSUS TUNNEL SYNDROME 09/19/2010 FATIMA DO, DENISE K 715.27 DJD-SECONDARY 09/19/2010 MADL BOILER CONTROL ROOM OPERATOR, TAMMY L 355.5 TARSUS TUNNEL SYNDROME 09/19/2010 MADL BOILER CONTROL ROOM OPERATOR, TAMMY L 715.27 DJD-SECONDARY 09/19/2010 MADL BOILER CONTROL ROOM OPERATOR, TAMMY L 355.5 TARSUS TUNNEL SYNDROME 09/19/2010 MADL BOILER CONTROL ROOM OPERATOR, TAMMY L 715.27 DJD-SECONDARY 09/19/2010 FATIMA DO, DENISE K 355.5 TARSUS TUNNEL SYNDROME 09/19/2010 FATIMA DO, DENISE K 715.27 DJD-SECONDARY 09/19/2010 MADL BOILER CONTROL ROOM OPERATOR, TAMMY L 355.5 TARSUS TUNNEL SYNDROME 09/19/2010 MADL BOILER CONTROL ROOM OPERATOR, TAMMY L 715.27 DJD-SECONDARY 09/19/2010 MADL BOILER CONTROL ROOM OPERATOR, TAMMY L 355.5 TARSUS TUNNEL SYNDROME 09/19/2010 MADL BOILER CONTROL ROOM OPERATOR, TAMMY L 715.27 DJD-SECONDARY 09/19/2010 MADL BOILER CONTROL ROOM OPERATOR, TAMMY L 355.5 TARSUS TUNNEL SYNDROME 09/19/2010 MADL BOILER CONTROL ROOM OPERATOR, TAMMY L 715.27 DJD-SECONDARY 09/19/2010 FATIMA DO, DENISE K 355.5 TARSUS TUNNEL SYNDROME 09/19/2010 FATIMA DO, DENISE K 715.27 DJD-SECONDARY 11/14/2010 LIEN TINEO MD 465.9 UPPER RESPIRATORY INFECTION 11/14/2010 LIEN TINEO MD 465.9 UPPER RESPIRATORY INFECTION 11/14/2010 NOMAN NUÑEZ, LIEN 465.9 UPPER RESPIRATORY INFECTION 11/14/2010 FATIMA DO, DENISE K 465.9 UPPER RESPIRATORY INFECTION 11/14/2010 PRASAD NUÑEZ, ODILON Santos 465.9 UPPER RESPIRATORY INFECTION 11/14/2010 465.9 UPPER [...] DENISE K 465.9 UPPER RESPIRATORY INFECTION 11/14/2010 RPASAD NUÑEZ, ODILON Santos 465.9 UPPER RESPIRATORY INFECTION 11/14/2010 FATIMA DO, DENISE K 465.9 UPPER RESPIRATORY INFECTION 11/14/2010 FATIMA DO, DENISE K 465.9 UPPER RESPIRATORY INFECTION 11/14/2010 MYLA NUÑEZ, CASSI Santos 465.9 UPPER RESPIRATORY INFECTION 11/14/2010 AC DURHAM APRN 465.9 UPPER RESPIRATORY INFECTION 11/14/2010 PRASAD NUÑEZ, ODILON Santos 465.9 UPPER RESPIRATORY INFECTION 11/14/2010 ODILON PARHAM MD 465.9 UPPER RESPIRATORY INFECTION 11/14/2010 FATIMA DO, DENISE K 465.9 UPPER RESPIRATORY INFECTION 11/14/2010 FATIMA DO, DENISE K 465.9 UPPER RESPIRATORY INFECTION 11/14/2010 FATIMA DO, DENISE K 465.9 UPPER RESPIRATORY INFECTION 11/14/2010 FATIMA DO, DENISE K 465.9 UPPER RESPIRATORY INFECTION 11/14/2010 FATIMA DO, DENISE K 465.9 UPPER RESPIRATORY INFECTION 11/14/2010 FATIMA DO, DENISE K 465.9 UPPER RESPIRATORY INFECTION 11/14/2010 MADL BOILER CONTROL ROOM OPERATOR, TAMMY L 465.9 UPPER RESPIRATORY INFECTION 11/14/2010 MADL BOILER CONTROL ROOM OPERATOR, TAMMY L 465.9 UPPER RESPIRATORY INFECTION 11/14/2010 MADL BOILER CONTROL ROOM OPERATOR, TAMMY L 465.9 UPPER RESPIRATORY INFECTION 11/14/2010 MADL BOILER CONTROL ROOM OPERATOR, TAMMY L 465.9 UPPER RESPIRATORY INFECTION 11/14/2010 FATIMA DO, DENISE K 465.9 UPPER RESPIRATORY INFECTION 11/14/2010 MADL BOILER CONTROL ROOM OPERATOR, TAMMY L 465.9 UPPER RESPIRATORY INFECTION 11/14/2010 MADL BOILER CONTROL ROOM OPERATOR, TAMMY L 465.9 UPPER RESPIRATORY INFECTION 11/14/2010 FATIMA DO, DENISE K 465.9 UPPER RESPIRATORY INFECTION 11/14/2010 MADL BOILER CONTROL ROOM OPERATOR, TAMMY L 465.9 UPPER RESPIRATORY INFECTION 11/14/2010 MADL BOILER CONTROL ROOM OPERATOR, TAMMY L 465.9 UPPER RESPIRATORY INFECTION 11/14/2010 MADL BOILER CONTROL ROOM OPERATOR, TAMMY L 465.9 UPPER RESPIRATORY INFECTION 11/14/2010 FATIMA DO, DENISE K 465.9 UPPER RESPIRATORY INFECTION 02/24/2011 NOMAN NUÑEZ, LIEN 786.2 cough 02/24/2011 LIEN TINEO MD 786.2 cough 02/24/2011 NOMAN NUÑEZ, LIEN 786.2 cough 02/24/2011 FATIMA DO, DENISE K [...] DO, DENISE K 786.2 COUGH 02/24/2011 MADL BOILER CONTROL ROOM OPERATOR, TAMMY L 786.2 COUGH 02/24/2011 MADL BOILER CONTROL ROOM OPERATOR, TAMMY L 786.2 COUGH 02/24/2011 MADL BOILER CONTROL ROOM OPERATOR, TAMMY L 786.2 COUGH 02/24/2011 MADL BOILER CONTROL ROOM OPERATOR, TAMMY L 786.2 COUGH 02/24/2011 FATIMA DO, DENISE K 786.2 COUGH 02/24/2011 MADL BOILER CONTROL ROOM OPERATOR, TAMMY L 786.2 COUGH 02/24/2011 MADL BOILER CONTROL ROOM OPERATOR, TAMMY L 786.2 COUGH 02/24/2011 FATIMA DO, DENISE K 786.2 COUGH 02/24/2011 MADL BOILER CONTROL ROOM OPERATOR, TAMMY L 786.2 COUGH 02/24/2011 MADL BOILER CONTROL ROOM OPERATOR, TAMMY L 786.2 COUGH 02/24/2011 MADL BOILER CONTROL ROOM OPERATOR, TAMMY L 786.2 COUGH 02/24/2011 FATIMA DO, DENISE K 786.2 COUGH 06/24/2011 NOMAN NUÑEZ, LIEN 535.50 GASTRITIS UNSPEC 06/24/2011 LIEN TINEO MD 535.50 GASTRITIS UNSPEC 06/24/2011 LIEN TINEO MD 535.50 GASTRITIS UNSPEC 06/24/2011 AKUA HERNANDEZ DENISE K 535.50 GASTRITIS UNSPEC 06/24/2011 ODILON PARHAM MD 535.50 GASTRITIS UNSPEC 06/24/2011 535.50 GASTRITIS UNSPEC 06/24/2011 535.50 GASTRITIS UNSPEC 06/24/2011 535.50 GASTRITIS UNSPEC 06/24/2011 535.50 GASTRITIS UNSPEC 06/24/2011 535.50 GASTRITIS UNSPEC 06/24/2011 535.50 GASTRITIS UNSPEC 06/24/2011 535.50 GASTRITIS UNSPEC 06/24/2011 535.50 GASTRITIS UNSPEC 06/24/2011 535.50 GASTRITIS UNSPEC 06/24/2011 FATIMA DO DENISE K 535.50 GASTRITIS UNSPEC 06/24/2011 FATIMA DO, DENISE K 535.50 GASTRITIS UNSPEC 06/24/2011 ODILON PARHAM MD 535.50 GASTRITIS UNSPEC 06/24/2011 FATIMA DO, DENISE K 535.50 GASTRITIS UNSPEC 06/24/2011 FATIMA DO, DENISE K 535.50 GASTRITIS UNSPEC 06/24/2011 MYLA NUÑEZ, CASSI Santos 535.50 GASTRITIS UNSPEC 06/24/2011 AC DURHAM APRN 535.50 GASTRITIS UNSPEC 06/24/2011 PRASAD NUÑEZ, ODILON Santos 535.50 GASTRITIS UNSPEC 06/24/2011 PRASAD NUÑEZ, ODILON Santos 535.50 GASTRITIS UNSPEC 06/24/2011 FATIMA DO, DENISE K 535.50 GASTRITIS UNSPEC 06/24/2011 FATIMA DO, DENISE K 535.50 GASTRITIS UNSPEC 06/24/2011 FATIMA DO, DENISE K 535.50 GASTRITIS UNSPEC 06/24/2011 FATIMA DO, DENISE K 535.50 GASTRITIS UNSPEC 06/24/2011 FATIMA DO, DENISE K 535.50 GASTRITIS UNSPEC 06/24/2011 FATIMA DO, DENISE K 535.50 GASTRITIS UNSPEC 06/24/2011 MADL BOILER CONTROL ROOM OPERATOR, TAMMY L 535.50 GASTRITIS UNSPEC 06/24/2011 MADL BOILER CONTROL ROOM OPERATOR, TAMMY L 535.50 GASTRITIS UNSPEC 06/24/2011 MADL BOILER CONTROL ROOM OPERATOR, TAMMY L 535.50 GASTRITIS UNSPEC 06/24/2011 MADL BOILER CONTROL ROOM OPERATOR, TAMMY L 535.50 GASTRITIS UNSPEC 06/24/2011 FATIMA DO, DENISE K 535.50 GASTRITIS UNSPEC 06/24/2011 MADL BOILER CONTROL ROOM OPERATOR, TAMMY L 535.50 GASTRITIS UNSPEC 06/24/2011 MADL BOILER CONTROL ROOM OPERATOR, TAMMY L 535.50 GASTRITIS UNSPEC 06/24/2011 FATIMA DO, DENISE K 535.50 GASTRITIS UNSPEC 06/24/2011 MADL BOILER CONTROL ROOM OPERATOR, TAMMY L 535.50 GASTRITIS UNSPEC 06/24/2011 MADL BOILER CONTROL ROOM OPERATOR, TAMMY L 535.50 GASTRITIS UNSPEC 06/24/2011 MADL BOILER CONTROL ROOM OPERATOR, TAMMY L 535.50 GASTRITIS UNSPEC 06/24/2011 FATIMA DO, DENISE K 535.50 GASTRITIS UNSPEC 09/21/2011 NOMAN NUÑEZ, LIEN 787.1 heartburn 09/21/2011 NOMAN NUÑEZ, LIEN Fernández.3 FLATULENCE ERUCTATION AND GAS PAIN 09/21/2011 LIEN TINEO MD 789.06 ABDOMINAL PAIN EPIGASTRIC 09/21/2011 LIEN TINEO MD.1 heartburn 09/21/2011 HUERTER MD, LIEN 787.3 FLATULENCE ERUCTATION AND GAS PAIN 09/21/2011 LIEN TINEO MD 789.06 ABDOMINAL PAIN EPIGASTRIC 09/21/2011 LIEN TINEO MD 787.1 heartburn 09/21/2011 LIEN TINEO MD 787.3 FLATULENCE ERUCTATION AND GAS PAIN 09/21/2011 LIEN TINEO MD 789.06 ABDOMINAL PAIN EPIGASTRIC 09/21/2011 FATIMA DO, DENISE K 787.1 heartburn 09/21/2011 FATIMA DO, DENISE K 787.3 FLATULENCE ERUCTATION AND GAS PAIN 09/21/2011 FATIMA DO, DENISE K 789.06 ABDOMINAL PAIN EPIGASTRIC 09/21/2011 ODILON [...] PAIN 09/21/2011 789.06 ABDOMINAL PAIN EPIGASTRIC 09/21/2011 AKUA HERNANDEZ DENISE K 787.1 heartburn 09/21/2011 FATIMA DO DENISE K 787.3 FLATULENCE ERUCTATION AND GAS PAIN 09/21/2011 FATIAM DO DENISE K 789.06 ABDOMINAL PAIN EPIGASTRIC 09/21/2011 FATIMA DO DENISE K 787.1 heartburn 09/21/2011 AKUA HERNANDEZ DENISE K 787.3 FLATULENCE ERUCTATION AND GAS PAIN 09/21/2011 KHADRA FATIMA DOA K 789.06 ABDOMINAL PAIN EPIGASTRIC 09/21/2011 ODILON PARHAM MD 787.1 heartburn 09/21/2011 ODILON PARHAM MD 787.3 FLATULENCE ERUCTATION AND GAS PAIN 09/21/2011 ODILON PARHAM MD 789.06 ABDOMINAL PAIN EPIGASTRIC 09/21/2011 KHADRA FATIMA DOA K 787.1 heartburn 09/21/2011 KHADRA FATIMA DOA K 787.3 FLATULENCE ERUCTATION AND GAS PAIN 09/21/2011 KHADRA FATIMA DOA K 789.06 ABDOMINAL PAIN EPIGASTRIC 09/21/2011 KHADRA FATIMA DOA K 787.1 heartburn 09/21/2011 KHADRA FATIMA DOA K 787.3 FLATULENCE ERUCTATION AND GAS PAIN 09/21/2011 KHADRA FATIMA DOA K 789.06 ABDOMINAL PAIN EPIGASTRIC 09/21/2011 MYLA NUÑEZ, CASSI Santos 787.1 heartburn 09/21/2011 CASSI LANZA MD 787.3 [...] PARHAM MD 789.06 ABDOMINAL PAIN EPIGASTRIC 09/21/2011 FATIMA DO, [...] K 789.06 ABDOMINAL PAIN EPIGASTRIC 09/21/2011 MADL BOILER CONTROL ROOM OPERATOR, TAMMY L 787.1 heartburn 09/21/2011 MADL BOILER CONTROL ROOM OPERATOR, TAMMY L 787.3 FLATULENCE ERUCTATION AND GAS PAIN 09/21/2011 MADL BOILER CONTROL ROOM OPERATOR, TAMMY L 789.06 ABDOMINAL PAIN EPIGASTRIC 09/21/2011 MADL BOILER CONTROL ROOM OPERATOR, TAMMY L 787.1 heartburn 09/21/2011 MADL BOILER CONTROL ROOM OPERATOR, TAMMY L 787.3 FLATULENCE ERUCTATION AND GAS PAIN 09/21/2011 MADL BOILER CONTROL ROOM OPERATOR, TAMMY L 789.06 ABDOMINAL PAIN EPIGASTRIC 09/21/2011 MADL BOILER CONTROL ROOM OPERATOR, TAMMY L 787.1 heartburn 09/21/2011 MADL BOILER CONTROL ROOM OPERATOR, TAMMY L 787.3 FLATULENCE ERUCTATION AND GAS PAIN 09/21/2011 MADL BOILER CONTROL ROOM OPERATOR, TAMMY L 789.06 ABDOMINAL PAIN EPIGASTRIC 09/21/2011 MADL BOILER CONTROL ROOM OPERATOR, TAMMY L 787.1 heartburn 09/21/2011 MADL BOILER CONTROL ROOM OPERATOR, TAMMY L 787.3 FLATULENCE ERUCTATION AND GAS PAIN 09/21/2011 MADL BOILER CONTROL ROOM OPERATOR, TAMMY L 789.06 ABDOMINAL PAIN EPIGASTRIC 09/21/2011 FATIMA DO, DENISE K 787.1 heartburn 09/21/2011 FATIMA DO, DENISE K 787.3 FLATULENCE ERUCTATION AND GAS PAIN 09/21/2011 FATIMA DO, DENISE K 789.06 ABDOMINAL PAIN EPIGASTRIC 09/21/2011 MADL BOILER CONTROL ROOM OPERATOR, TAMMY L 787.1 heartburn 09/21/2011 MADL BOILER CONTROL ROOM OPERATOR, TAMMY L 787.3 FLATULENCE ERUCTATION AND GAS PAIN 09/21/2011 MADL BOILER CONTROL ROOM OPERATOR, TAMMY L 789.06 ABDOMINAL PAIN EPIGASTRIC 09/21/2011 MADL BOILER CONTROL ROOM OPERATOR, TAMMY L 787.1 heartburn 09/21/2011 MADL BOILER CONTROL ROOM OPERATOR, TAMMY L 787.3 FLATULENCE ERUCTATION AND GAS PAIN 09/21/2011 MADL BOILER CONTROL ROOM OPERATOR, TAMMY L 789.06 ABDOMINAL PAIN EPIGASTRIC 09/21/2011 FATIMA DO, DENISE K 787.1 heartburn 09/21/2011 FATIMA DO, DENISE K 787.3 FLATULENCE ERUCTATION AND GAS PAIN 09/21/2011 AKUA DO, DENISE K 789.06 ABDOMINAL PAIN EPIGASTRIC 09/21/2011 MADL BOILER CONTROL ROOM OPERATOR, TAMMY L 787.1 heartburn 09/21/2011 MADL BOILER CONTROL ROOM OPERATOR, TAMMY L 787.3 FLATULENCE ERUCTATION AND GAS PAIN 09/21/2011 MADL BOILER CONTROL ROOM OPERATOR, TAMMY L 789.06 ABDOMINAL PAIN EPIGASTRIC 09/21/2011 MADL BOILER CONTROL ROOM OPERATOR, TAMMY L 787.1 heartburn 09/21/2011 MADL BOILER CONTROL ROOM OPERATOR, TAMMY L 787.3 FLATULENCE ERUCTATION AND GAS PAIN 09/21/2011 MADL BOILER CONTROL ROOM OPERATOR, TAMMY L 789.06 ABDOMINAL PAIN EPIGASTRIC 09/21/2011 MADL BOILER CONTROL ROOM OPERATOR, TAMMY L 787.1 heartburn 09/21/2011 MADL BOILER CONTROL ROOM OPERATOR, TAMMY L 787.3 FLATULENCE ERUCTATION AND GAS PAIN 09/21/2011 CARLEEL BOILER CONTROL ROOM OPERATOR, TAMMY L 789.06 ABDOMINAL PAIN EPIGASTRIC 09/21/2011 AKUA DO, DENISE K 787.1 heartburn 09/21/2011 AKUA HERNANDEZ, DENISE K 787.3 FLATULENCE ERUCTATION AND GAS [...] TINEO MD 327.23 SLEEP APNEA OBSTRUCTIVE 01/15/2012 AKUA HERNANDEZ DENISE K 327.23 SLEEP APNEA OBSTRUCTIVE 01/15/2012 ODILON PARHAM MD 327.23 SLEEP APNEA OBSTRUCTIVE 01/15/2012 327.23 SLEEP APNEA OBSTRUCTIVE 01/15/2012 327.23 SLEEP APNEA OBSTRUCTIVE 01/15/2012 327.23 SLEEP APNEA OBSTRUCTIVE 01/15/2012 327.23 SLEEP APNEA OBSTRUCTIVE 01/15/2012 327.23 SLEEP APNEA OBSTRUCTIVE 01/15/2012 327.23 SLEEP APNEA OBSTRUCTIVE 01/15/2012 327.23 SLEEP APNEA OBSTRUCTIVE 01/15/2012 327.23 SLEEP APNEA OBSTRUCTIVE 01/15/2012 327.23 SLEEP APNEA OBSTRUCTIVE 01/15/2012 FATIMA DO DENISE K 327.23 SLEEP APNEA OBSTRUCTIVE 01/15/2012 AFTIMA DO DENISE K 327.23 SLEEP APNEA OBSTRUCTIVE 01/15/2012 ODILON PARHAM MD 327.23 SLEEP APNEA OBSTRUCTIVE 01/15/2012 FATIMA DO DENISE K 327.23 SLEEP APNEA OBSTRUCTIVE 01/15/2012 FATIMA DO DENISE K 327.23 SLEEP APNEA OBSTRUCTIVE 01/15/2012 CASSI LANZA MD 327.23 SLEEP APNEA OBSTRUCTIVE 01/15/2012 AC DURHAM APRN 327.23 SLEEP APNEA OBSTRUCTIVE 01/15/2012 ODILON PARHAM MD 327.23 SLEEP APNEA OBSTRUCTIVE 01/15/2012 ODILON PARHAM MD 327.23 SLEEP APNEA OBSTRUCTIVE 01/15/2012 FATIMA DO DENISE K 327.23 SLEEP APNEA OBSTRUCTIVE 01/15/2012 FATIMA DO DENISE K 327.23 SLEEP APNEA OBSTRUCTIVE 01/15/2012 FATIMA DO DENISE K 327.23 SLEEP APNEA OBSTRUCTIVE 01/15/2012 FATIMA DO DENISE K 327.23 SLEEP APNEA OBSTRUCTIVE 01/15/2012 FATIMA DO, DENISE K 327.23 SLEEP APNEA OBSTRUCTIVE 01/15/2012 FATIMA DO, DENISE K 327.23 SLEEP APNEA OBSTRUCTIVE 01/15/2012 MADL BOILER CONTROL ROOM OPERATOR, TAMMY L 327.23 SLEEP APNEA OBSTRUCTIVE 01/15/2012 MADL BOILER CONTROL ROOM OPERATOR, TAMMY L 327.23 SLEEP APNEA OBSTRUCTIVE 01/15/2012 MADL BOILER CONTROL ROOM OPERATOR, TAMMY L 327.23 SLEEP APNEA OBSTRUCTIVE 01/15/2012 MADL BOILER CONTROL ROOM OPERATOR, TAMMY L 327.23 SLEEP APNEA OBSTRUCTIVE 01/15/2012 FATIMA DO, DENISE K 327.23 SLEEP APNEA OBSTRUCTIVE 01/15/2012 MADL BOILER CONTROL ROOM OPERATOR, TAMMY L 327.23 SLEEP APNEA OBSTRUCTIVE 01/15/2012 MADL BOILER CONTROL ROOM OPERATOR, TAMMY L 327.23 SLEEP APNEA OBSTRUCTIVE 01/15/2012 FATIMA DO, DENISE K 327.23 SLEEP APNEA OBSTRUCTIVE 01/15/2012 MADL BOILER CONTROL ROOM OPERATOR, TAMMY L 327.23 SLEEP APNEA OBSTRUCTIVE 01/15/2012 MADL BOILER CONTROL ROOM OPERATOR, TAMMY L 327.23 SLEEP APNEA OBSTRUCTIVE 01/15/2012 MADL BOILER CONTROL ROOM OPERATOR, TAMMY L 327.23 SLEEP APNEA OBSTRUCTIVE 01/15/2012 FATIMA DO, DENISE K 327.23 SLEEP APNEA OBSTRUCTIVE 01/22/2012 LIEN TINEO MD 339.89 HEADACHE SYNDROMES 01/22/2012 LIEN TINEO MD 339.89 HEADACHE SYNDROMES 01/22/2012 LIEN TINEO MD 339.89 HEADACHE SYNDROMES 01/22/2012 AKUA HERNANDEZ DENISE K 339.89 HEADACHE SYNDROMES 01/22/2012 ODILON PARHAM MD 339.89 HEADACHE SYNDROMES 01/22/2012 339.89 HEADACHE SYNDROMES 01/22/2012 339.89 HEADACHE SYNDROMES 01/22/2012 339.89 HEADACHE SYNDROMES 01/22/2012 339.89 HEADACHE SYNDROMES 01/22/2012 339.89 HEADACHE SYNDROMES 01/22/2012 339.89 HEADACHE SYNDROMES 01/22/2012 339.89 HEADACHE SYNDROMES 01/22/2012 339.89 HEADACHE SYNDROMES 01/22/2012 339.89 HEADACHE SYNDROMES 01/22/2012 KHADRA FATIMA DOA K 339.89 HEADACHE SYNDROMES 01/22/2012 FATIMA DO DENISE K 339.89 HEADACHE SYNDROMES 01/22/2012 ODILON PARHAM MD 339.89 HEADACHE SYNDROMES 01/22/2012 FATIMA DO, DENISE K 339.89 HEADACHE SYNDROMES 01/22/2012 FATIMA DO, DENISE K 339.89 HEADACHE SYNDROMES 01/22/2012 MYLA NUÑEZ, CASSI M 339.89 HEADACHE SYNDROMES 01/22/2012 HERMINIO RAMIREZ AC T 339.89 HEADACHE SYNDROMES 01/22/2012 ODILON PARHAM MD 339.89 HEADACHE SYNDROMES 01/22/2012 ODILON APRHAM MD 339.89 HEADACHE SYNDROMES 01/22/2012 FATIMA DO, DENISE K 339.89 HEADACHE SYNDROMES 01/22/2012 FATIMA DO, DENISE K 339.89 HEADACHE SYNDROMES 01/22/2012 FATIMA DO, DENISE K 339.89 HEADACHE SYNDROMES 01/22/2012 FATIMA DO, DENISE K 339.89 HEADACHE SYNDROMES 01/22/2012 FATIMA DO, DENISE K 339.89 HEADACHE SYNDROMES 01/22/2012 FATIMA DO, DENISE K 339.89 HEADACHE SYNDROMES 01/22/2012 MADL BOILER CONTROL ROOM OPERATOR, TAMMY L 339.89 HEADACHE SYNDROMES 01/22/2012 MADL BOILER CONTROL ROOM OPERATOR, TAMMY L 339.89 HEADACHE SYNDROMES 01/22/2012 MADL BOILER CONTROL ROOM OPERATOR, TAMMY L 339.89 HEADACHE SYNDROMES 01/22/2012 MADL BOILER CONTROL ROOM OPERATOR, TAMMY L 339.89 HEADACHE SYNDROMES 01/22/2012 FATIMA DO, DENISE K 339.89 HEADACHE SYNDROMES 01/22/2012 MADL BOILER CONTROL ROOM OPERATOR, TAMMY L 339.89 HEADACHE SYNDROMES 01/22/2012 MADL BOILER CONTROL ROOM OPERATOR, TAMMY L 339.89 HEADACHE SYNDROMES 01/22/2012 FATIMA DO, DENISE K 339.89 HEADACHE SYNDROMES 01/22/2012 MADL BOILER CONTROL ROOM OPERATOR, TAMMY L 339.89 HEADACHE SYNDROMES 01/22/2012 MADL BOILER CONTROL ROOM OPERATOR, TAMMY L 339.89 HEADACHE SYNDROMES 01/22/2012 MADL BOILER CONTROL ROOM OPERATOR, TAMMY L 339.89 HEADACHE SYNDROMES 01/22/2012 FATIMA DO, DENISE K 339.89 HEADACHE SYNDROMES 02/17/2012 LIEN TINEO MD 780.4 dizziness 02/17/2012 LIEN TINEO MD 780.4 dizziness 02/17/2012 LIEN TINEO MD 780.4 dizziness 02/17/2012 FATIMA DO, DENISE [...] 02/17/2012 AC DURHAM APRN 780.4 dizziness 02/17/2012 PRASAD NUÑEZ, ODILON Santos 780.4 dizziness 02/17/2012 ODILON PARHAM MD 780.4 dizziness 02/17/2012 FATIMA DO, DENISE K 780.4 DIZZINESS 02/17/2012 FATIMA DO, DENISE K 780.4 DIZZINESS 02/17/2012 FATIMA DO, DENISE K 780.4 DIZZINESS 02/17/2012 FATIMA DO, DENISE K 780.4 DIZZINESS 02/17/2012 FATIMA DO, DENISE K 780.4 DIZZINESS 02/17/2012 FATIMA DO, DENISE K 780.4 DIZZINESS 02/17/2012 MADL BOILER CONTROL ROOM OPERATOR, TAMMY L 780.4 DIZZINESS 02/17/2012 MADL BOILER CONTROL ROOM OPERATOR, TAMMY L 780.4 DIZZINESS 02/17/2012 MADL BOILER CONTROL ROOM OPERATOR, TAMMY L 780.4 DIZZINESS 02/17/2012 MADL BOILER CONTROL ROOM OPERATOR, TAMMY L 780.4 DIZZINESS 02/17/2012 FATIMA DO, DENISE K 780.4 DIZZINESS 02/17/2012 MADL BOILER CONTROL ROOM OPERATOR, TAMMY L 780.4 DIZZINESS 02/17/2012 MADL BOILER CONTROL ROOM OPERATOR, TAMMY L 780.4 DIZZINESS 02/17/2012 FATIMA DO, DENISE K 780.4 DIZZINESS 02/17/2012 MADL BOILER CONTROL ROOM OPERATOR, TAMMY L 780.4 DIZZINESS 02/17/2012 MADL BOILER CONTROL ROOM OPERATOR, TAMMY L 780.4 DIZZINESS 02/17/2012 MADL BOILER CONTROL ROOM OPERATOR, TAMMY L 780.4 DIZZINESS 02/17/2012 FATIMA DO, DENISE K 780.4 DIZZINESS 06/10/2012 PRASAD NUÑEZ, ODILON Santos 356.9 POLYNEUROPATHY 06/10/2012 356.9 POLYNEUROPATHY 06/10/2012 356.9 [...] K 356.9 POLYNEUROPATHY 06/10/2012 MYLA NUÑEZ, CASSI Santos 356.9 POLYNEUROPATHY 06/10/2012 AC DURHAM APRN 356.9 POLYNEUROPATHY 06/10/2012 PRASAD NUÑEZ, ODILON Santos 356.9 POLYNEUROPATHY 06/10/2012 PRASAD NUÑEZ, ODILON Santos 356.9 POLYNEUROPATHY 06/10/2012 FATIMA DO, DENISE K 356.9 POLYNEUROPATHY 06/10/2012 FATIMA DO, DENISE K 356.9 POLYNEUROPATHY 06/10/2012 FATIMA DO, DENISE K 356.9 POLYNEUROPATHY 06/10/2012 FATIMA DO, DENISE K 356.9 POLYNEUROPATHY 06/10/2012 FATIMA DO, DENISE K 356.9 POLYNEUROPATHY 06/10/2012 FATIMA DO, DENISE K 356.9 POLYNEUROPATHY 06/10/2012 MADL BOILER CONTROL ROOM OPERATOR, TAMMY L 356.9 POLYNEUROPATHY 06/10/2012 MADL BOILER CONTROL ROOM OPERATOR, TAMMY L 356.9 POLYNEUROPATHY 06/10/2012 MADL BOILER CONTROL ROOM OPERATOR, TAMMY L 356.9 POLYNEUROPATHY 06/10/2012 MADL BOILER CONTROL ROOM OPERATOR, TAMMY L 356.9 POLYNEUROPATHY 06/10/2012 FATIMA DO, DENISE K 356.9 POLYNEUROPATHY 06/10/2012 MADL BOILER CONTROL ROOM OPERATOR, TAMMY L 356.9 POLYNEUROPATHY 06/10/2012 MADL BOILER CONTROL ROOM OPERATOR, TAMMY L 356.9 POLYNEUROPATHY 06/10/2012 FATIMA DO, DENISE K 356.9 POLYNEUROPATHY 06/10/2012 MADL BOILER CONTROL ROOM OPERATOR, TAMMY L 356.9 POLYNEUROPATHY 06/10/2012 MADL BOILER CONTROL ROOM OPERATOR, TAMMY L 356.9 POLYNEUROPATHY 06/10/2012 MADL BOILER CONTROL ROOM OPERATOR, TAMMY L 356.9 POLYNEUROPATHY 06/10/2012 FATIMA DO, DENISE K 356.9 POLYNEUROPATHY 06/22/2012 682.9 CELLULITIS AND [...] AND ABSCESS OF UNSPECIFIED SITES 06/22/2012 MADL BOILER CONTROL ROOM OPERATOR, TAMMY L 682.9 CELLULITIS AND ABSCESS OF UNSPECIFIED SITES 06/22/2012 MADL BOILER CONTROL ROOM OPERATOR, TAMMY L 682.9 CELLULITIS AND ABSCESS OF UNSPECIFIED SITES 06/22/2012 MADL BOILER CONTROL ROOM OPERATOR, TAMMY L 682.9 CELLULITIS AND ABSCESS OF UNSPECIFIED SITES 06/22/2012 MADL BOILER CONTROL ROOM OPERATOR, TAMMY L 682.9 CELLULITIS AND ABSCESS OF UNSPECIFIED SITES 06/22/2012 FATIMA DO, DENISE K 682.9 CELLULITIS AND ABSCESS OF UNSPECIFIED SITES 06/22/2012 MADL BOILER CONTROL ROOM OPERATOR, TAMMY L 682.9 CELLULITIS AND ABSCESS OF UNSPECIFIED SITES 06/22/2012 MADL BOILER CONTROL ROOM OPERATOR, TAMMY L 682.9 CELLULITIS AND ABSCESS OF UNSPECIFIED SITES 06/22/2012 FATIMA DO, DENISE K 682.9 CELLULITIS AND ABSCESS OF UNSPECIFIED SITES 06/22/2012 MADL BOILER CONTROL ROOM OPERATOR, TAMMY L 682.9 CELLULITIS AND ABSCESS OF UNSPECIFIED SITES 06/22/2012 MADL BOILER CONTROL ROOM OPERATOR, TAMMY L 682.9 CELLULITIS AND ABSCESS OF UNSPECIFIED SITES 06/22/2012 MADL BOILER CONTROL ROOM OPERATOR, TAMMY L 682.9 CELLULITIS AND ABSCESS [...] BENIGN NEOPLASM OF SKIN SITE UNSPECIFIED 11/10/2012 FTAIMA DO, DENISE K 216.9 BENIGN NEOPLASM OF [...] NEOPLASM OF SKIN SITE UNSPECIFIED 11/10/2012 MADL BOILER CONTROL ROOM OPERATOR, TAMMY L 216.9 BENIGN NEOPLASM OF SKIN SITE UNSPECIFIED 11/10/2012 MADL BOILER CONTROL ROOM OPERATOR, TAMMY L 216.9 BENIGN NEOPLASM OF SKIN SITE UNSPECIFIED 11/10/2012 MADL BOILER CONTROL ROOM OPERATOR, TAMMY L 216.9 BENIGN NEOPLASM OF SKIN SITE UNSPECIFIED 11/10/2012 MADL BOILER CONTROL ROOM OPERATOR, TMAMY L 216.9 BENIGN NEOPLASM OF SKIN SITE UNSPECIFIED 11/10/2012 FATIMA DO, DENISE K 216.9 BENIGN NEOPLASM OF SKIN SITE UNSPECIFIED 11/10/2012 MADL BOILER CONTROL ROOM OPERATOR, TAMMY L 216.9 BENIGN NEOPLASM OF SKIN SITE UNSPECIFIED 11/10/2012 MADL BOILER CONTROL ROOM OPERATOR, TAMMY L 216.9 BENIGN NEOPLASM OF SKIN SITE UNSPECIFIED 11/10/2012 FATIMA DO, DENISE K 216.9 BENIGN NEOPLASM OF SKIN SITE UNSPECIFIED 11/10/2012 MADL BOILER CONTROL ROOM OPERATOR, TAMMY L 216.9 BENIGN NEOPLASM OF SKIN SITE UNSPECIFIED 11/10/2012 MADL BOILER CONTROL ROOM OPERATOR, TAMMY L 216.9 BENIGN NEOPLASM OF SKIN SITE UNSPECIFIED 11/10/2012 MADL BOILER CONTROL ROOM OPERATOR, TAMMY L 216.9 BENIGN NEOPLASM OF [...] V04.81 FLU SHOT 11/30/2012 MYLA NUÑEZ, CASSI M V04.81 FLU SHOT 11/30/2012 AC DURHAM APRN T V04.81 FLU SHOT 11/30/2012 PRASAD NUÑEZ, [...] DENISE K V04.81 FLU SHOT 11/30/2012 MADL BOILER CONTROL ROOM OPERATOR, TAMMY L V04.81 FLU SHOT 11/30/2012 MADL BOILER CONTROL ROOM OPERATOR, TAMMY L V04.81 FLU SHOT 11/30/2012 MADL BOILER CONTROL ROOM OPERATOR, TAMMY L V04.81 FLU SHOT 11/30/2012 MADL BOILER CONTROL ROOM OPERATOR, TAMMY L V04.81 FLU SHOT 11/30/2012 FATIMA DO, DENISE K V04.81 FLU SHOT 11/30/2012 MADL BOILER CONTROL ROOM OPERATOR, TAMMY L V04.81 FLU SHOT 11/30/2012 MADL BOILER CONTROL ROOM OPERATOR, TAMMY L V04.81 FLU SHOT 11/30/2012 FATIMA DO, DENISE K V04.81 FLU SHOT 11/30/2012 MADL BOILER CONTROL ROOM OPERATOR, TAMMY L V04.81 FLU SHOT 11/30/2012 MADL BOILER CONTROL ROOM OPERATOR, TAMMY L V04.81 FLU SHOT 11/30/2012 MADL BOILER CONTROL ROOM OPERATOR, TAMMY L V04.81 FLU SHOT 11/30/2012 FATIMA DO, DENISE K V04.81 FLU SHOT 12/12/2012 FATIMA DO, DENISE K 787.02 NAUSEA ALONE 12/12/2012 FATIMA DO, DENISE K 787.91 DIARRHEA 12/12/2012 FATIMA DO, DENISE K 789.01 ABDOMINAL PAIN RIGHT UPPER QUADRANT 12/12/2012 FATIMA DO, DENISE K 787.02 NAUSEA ALONE 12/12/2012 FATIMA DO DENISE K 787.91 DIARRHEA 12/12/2012 FATIMA DO DENISE K 789.01 ABDOMINAL PAIN RIGHT UPPER QUADRANT 12/12/2012 ODILON PARHAM MD 787.02 NAUSEA ALONE 12/12/2012 ODILON PARHAM MD 787.91 DIARRHEA 12/12/2012 ODILON PARHAM MD 789.01 ABDOMINAL [...] 787.02 NAUSEA ALONE 12/12/2012 ODILON PARHAM MD 787.91 DIARRHEA 12/12/2012 ODILON PARHAM MD 789.01 ABDOMINAL PAIN RIGHT UPPER QUADRANT 12/12/2012 ODILON PARHAM MD 787.02 NAUSEA ALONE 12/12/2012 ODILON PARHAM MD 787.91 DIARRHEA 12/12/2012 ODILON PARHAM MD 789.01 ABDOMINAL [...] ABDOMINAL PAIN RIGHT UPPER QUADRANT 12/12/2012 MADL BOILER CONTROL ROOM OPERATOR, TAMMY L 787.02 NAUSEA ALONE 12/12/2012 MADL BOILER CONTROL ROOM OPERATOR, TAMMY L 787.91 DIARRHEA 12/12/2012 MADL BOILER CONTROL ROOM OPERATOR, TAMMY L 789.01 ABDOMINAL PAIN RIGHT UPPER QUADRANT 12/12/2012 MADL BOILER CONTROL ROOM OPERATOR, TAMMY L 787.02 NAUSEA ALONE 12/12/2012 MADL BOILER CONTROL ROOM OPERATOR, TAMMY L 787.91 DIARRHEA 12/12/2012 MADL BOILER CONTROL ROOM OPERATOR, TAMMY L 789.01 ABDOMINAL PAIN RIGHT UPPER QUADRANT 12/12/2012 MADL BOILER CONTROL ROOM OPERATOR, TAMMY L 787.02 NAUSEA ALONE 12/12/2012 MADL BOILER CONTROL ROOM OPERATOR, TAMMY L 787.91 DIARRHEA 12/12/2012 MADL BOILER CONTROL ROOM OPERATOR, TAMMY L 789.01 ABDOMINAL PAIN RIGHT UPPER QUADRANT 12/12/2012 MADL BOILER CONTROL ROOM OPERATOR, TAMMY L 787.02 NAUSEA ALONE 12/12/2012 MADL BOILER CONTROL ROOM OPERATOR, TAMMY L 787.91 DIARRHEA 12/12/2012 MADL BOILER CONTROL ROOM OPERATOR, TAMMY L 789.01 ABDOMINAL PAIN RIGHT UPPER QUADRANT 12/12/2012 FATIMA DO, DENISE K 787.02 NAUSEA ALONE 12/12/2012 FATIMA DO, DENISE K 787.91 DIARRHEA 12/12/2012 FATIMA DO, DENISE K 789.01 ABDOMINAL PAIN RIGHT UPPER QUADRANT 12/12/2012 MADL BOILER CONTROL ROOM OPERATOR, TAMMY L 787.02 NAUSEA ALONE 12/12/2012 MADL BOILER CONTROL ROOM OPERATOR, TAMMY L 787.91 DIARRHEA 12/12/2012 MADL BOILER CONTROL ROOM OPERATOR, TAMMY L 789.01 ABDOMINAL PAIN RIGHT UPPER QUADRANT 12/12/2012 MADL BOILER CONTROL ROOM OPERATOR, TAMMY L 787.02 NAUSEA ALONE 12/12/2012 MADL BOILER CONTROL ROOM OPERATOR, TAMMY L 787.91 DIARRHEA 12/12/2012 MADL BOILER CONTROL ROOM OPERATOR, TAMMY L 789.01 ABDOMINAL PAIN RIGHT UPPER QUADRANT 12/12/2012 FATIMA DO, DENISE K 787.02 NAUSEA ALONE 12/12/2012 FATIMA DO, DENISE K 787.91 DIARRHEA 12/12/2012 FATIMA DO, DENISE K 789.01 ABDOMINAL PAIN RIGHT UPPER QUADRANT 12/12/2012 MADL BOILER CONTROL ROOM OPERATOR, TAMMY L 787.02 NAUSEA ALONE 12/12/2012 MADL BOILER CONTROL ROOM OPERATOR, TAMMY L 787.91 DIARRHEA 12/12/2012 MADL BOILER CONTROL ROOM OPERATOR, TAMMY L 789.01 ABDOMINAL PAIN RIGHT UPPER QUADRANT 12/12/2012 MADL BOILER CONTROL ROOM OPERATOR, TAMMY L 787.02 NAUSEA ALONE 12/12/2012 MADL BOILER CONTROL ROOM OPERATOR, TAMMY L 787.91 DIARRHEA 12/12/2012 MADL BOILER CONTROL ROOM OPERATOR, TAMMY L 789.01 ABDOMINAL PAIN RIGHT UPPER QUADRANT 12/12/2012 MADL BOILER CONTROL ROOM OPERATOR, TAMMY L 787.02 NAUSEA ALONE 12/12/2012 MADL BOILER CONTROL ROOM OPERATOR, TAMMY L 787.91 DIARRHEA 12/12/2012 MADL BOILER CONTROL ROOM OPERATOR, TAMMY L 789.01 ABDOMINAL PAIN RIGHT UPPER QUADRANT 12/12/2012 FATIMA DO, DENISE K 787.02 NAUSEA ALONE 12/12/2012 FATIMA DO, DENISE K 787.91 DIARRHEA 12/12/2012 FATIMA DO, DENISE K 789.01 ABDOMINAL PAIN RIGHT UPPER QUADRANT 12/28/2012 ODILON PARHAM MD 571.8 OTHER CHRONIC NONALCOHOLIC LIVER DISEASE 12/28/2012 [...] DENISE K 571.8 FATTY LIVER 12/28/2012 MADL BOILER CONTROL ROOM OPERATOR, TAMMY L 571.8 FATTY LIVER 12/28/2012 MADL BOILER CONTROL ROOM OPERATOR, TAMMY L 571.8 FATTY LIVER 12/28/2012 MADL BOILER CONTROL ROOM OPERATOR, TAMMY L 571.8 FATTY LIVER 12/28/2012 MADL BOILER CONTROL ROOM OPERATOR, TAMMY L 571.8 FATTY LIVER 12/28/2012 FATIMA DO, DENISE K 571.8 FATTY LIVER 12/28/2012 MADL BOILER CONTROL ROOM OPERATOR, TAMMY L 571.8 FATTY LIVER 12/28/2012 MADL BOILER CONTROL ROOM OPERATOR, TAMMY L 571.8 FATTY LIVER 12/28/2012 FATIMA DO, DENISE K 571.8 FATTY LIVER 12/28/2012 MADL BOILER CONTROL ROOM OPERATOR, TAMMY L 571.8 FATTY LIVER 12/28/2012 MADL BOILER CONTROL ROOM OPERATOR, TAMMY L 571.8 FATTY LIVER 12/28/2012 MADL BOILER CONTROL ROOM OPERATOR, TAMMY L 571.8 FATTY LIVER 12/28/2012 FATIMA DO, DENISE K 571.8 FATTY LIVER 01/06/2013 FATIMA DO, DENISE K 726.79 TENDONITIS PERONEAL 01/06/2013 FATIMA DO, DENISE K 726.79 TENDONITIS PERONEAL 01/06/2013 MYLA NUÑEZ, CASSI Santos 726.79 TENDONITIS PERONEAL 01/06/2013 HERMINIO RAMIREZ, AC Vann 726.79 TENDONITIS PERONEAL 01/06/2013 PRASAD NUÑEZ, ODILON Santos 726.79 TENDONITIS PERONEAL 01/06/2013 PRASAD NUÑEZ, ODILON Santos 726.79 TENDONITIS PERONEAL 01/06/2013 FATIMA DO, DENISE K 726.79 TENDONITIS PERONEAL 01/06/2013 FATIMA DO, DENISE K 726.79 TENDONITIS PERONEAL 01/06/2013 FATIMA DO, DENISE K 726.79 TENDONITIS PERONEAL 01/06/2013 FATIMA DO, DENISE K 726.79 TENDONITIS PERONEAL 01/06/2013 FATIMA DO, DENISE K 726.79 TENDONITIS PERONEAL 01/06/2013 FATIMA DO, DENISE K 726.79 TENDONITIS PERONEAL 01/06/2013 MADL BOILER CONTROL ROOM OPERATOR, TAMMY L 726.79 TENDONITIS PERONEAL 01/06/2013 MADL BOILER CONTROL ROOM OPERATOR, TAMMY L 726.79 TENDONITIS PERONEAL 01/06/2013 MADL BOILER CONTROL ROOM OPERATOR, TAMMY L 726.79 TENDONITIS PERONEAL 01/06/2013 MADL BOILER CONTROL ROOM OPERATOR, TAMMY L 726.79 TENDONITIS PERONEAL 01/06/2013 FATIMA DO, DENISE K 726.79 TENDONITIS PERONEAL 01/06/2013 MADL BOILER CONTROL ROOM OPERATOR, TAMMY L 726.79 TENDONITIS PERONEAL 01/06/2013 MADL BOILER CONTROL ROOM OPERATOR, TAMMY L 726.79 TENDONITIS PERONEAL 01/06/2013 FATIMA DO, DENISE K 726.79 TENDONITIS PERONEAL 01/06/2013 MADL BOILER CONTROL ROOM OPERATOR, TAMMY L 726.79 TENDONITIS PERONEAL 01/06/2013 MADL BOILER CONTROL ROOM OPERATOR, TAMMY L 726.79 TENDONITIS PERONEAL 01/06/2013 MADL BOILER CONTROL ROOM OPERATOR, TAMMY L 726.79 TENDONITIS PERONEAL 01/06/2013 FATIMA DO, DENISE K 726.79 TENDONITIS PERONEAL 01/16/2013 FATIMA DO, DENISE K V76.51 COLON CANCER SCREENING 01/16/2013 MYLA NUÑEZ, CASSI Santos V76.51 COLON CANCER SCREENING 01/16/2013 AC DURHAM APRN V76.51 COLON CANCER SCREENING 01/16/2013 ODILON PARHAM MD V76.51 COLON CANCER SCREENING 01/16/2013 ODILON PARHAM MD V76.51 COLON CANCER SCREENING 01/16/2013 FATIMA DO, DENISE K V76.51 COLON CANCER SCREENING 01/16/2013 FATIMA DO, DENISE K V76.51 COLON CANCER SCREENING 01/16/2013 FATIMA DO, DENISE K V76.51 COLON CANCER SCREENING 01/16/2013 FATIMA DO, DENISE K V76.51 COLON CANCER SCREENING 01/16/2013 FATIMA DO, DENISE K V76.51 COLON CANCER SCREENING 01/16/2013 FATIMA DO, DENISE K V76.51 COLON CANCER SCREENING 01/16/2013 MADL BOILER CONTROL ROOM OPERATOR, TAMMY L V76.51 COLON CANCER SCREENING 01/16/2013 MADL BOILER CONTROL ROOM OPERATOR, TAMMY L V76.51 COLON CANCER SCREENING 01/16/2013 MADL BOILER CONTROL ROOM OPERATOR, TAMMY L V76.51 COLON CANCER SCREENING 01/16/2013 CARLEEL BOILER CONTROL ROOM OPERATOR, TAMMY L V76.51 COLON CANCER SCREENING 01/16/2013 FATIMA DO, DENISE K V76.51 COLON CANCER SCREENING 01/16/2013 MADL BOILER CONTROL ROOM OPERATOR, TAMMY L V76.51 COLON CANCER SCREENING 01/16/2013 MADL BOILER CONTROL ROOM OPERATOR, TAMMY L V76.51 COLON CANCER SCREENING 01/16/2013 FATIMA KHADRA HERNANDEZA K V76.51 COLON CANCER SCREENING 01/16/2013 MADL BOILER CONTROL ROOM OPERATOR, TAMMY L V76.51 COLON CANCER SCREENING 01/16/2013 MADL BOILER CONTROL ROOM OPERATOR, TAMMY L V76.51 COLON CANCER SCREENING 01/16/2013 MADL BOILER CONTROL ROOM OPERATOR, TAMMY L V76.51 COLON CANCER SCREENING 01/16/2013 FATIMA KHADRA HERNANDEZA K V76.51 COLON CANCER SCREENING 01/30/2013 YMLA NUÑEZ, CASSI M Ot 211.3 BENIGN NEOPLASM LG BOWEL 01/30/2013 MYLA NUÑEZ, CASSI M Ot 562.10 DIVERTICULOSIS COLON (W/O MENT OF HEMORR 04/19/2013 AC DURHAM APRN 604.90 ORCHITIS AND EPIDIDYMITIS UNSPECIFIED 04/19/2013 PRASAD NUÑEZ, ODILON Santos 604.90 ORCHITIS AND EPIDIDYMITIS UNSPECIFIED 04/19/2013 PRASAD NUÑEZ, ODILON Santos 604.90 ORCHITIS AND EPIDIDYMITIS UNSPECIFIED 04/19/2013 KHADRA FATIMA DOA K 604.90 ORCHITIS AND EPIDIDYMITIS UNSPECIFIED 04/19/2013 KHADRA FATIMA DOA K 604.90 ORCHITIS AND EPIDIDYMITIS UNSPECIFIED 04/19/2013 KHADRA FATIMA DOA K 604.90 ORCHITIS AND EPIDIDYMITIS UNSPECIFIED 04/19/2013 KHADRA FATIMA DOA K 604.90 ORCHITIS AND EPIDIDYMITIS UNSPECIFIED 04/19/2013 KHADRA FATIMA DOA K 604.90 ORCHITIS AND EPIDIDYMITIS UNSPECIFIED 04/19/2013 FATIMA DO DENISE K 604.90 ORCHITIS AND EPIDIDYMITIS UNSPECIFIED 04/19/2013 MADArabella BOILER CONTROL ROOM OPERATOR, TAMMY L 604.90 ORCHITIS AND EPIDIDYMITIS UNSPECIFIED 04/19/2013 MADL BOILER CONTROL ROOM OPERATORLAM TolentinoA L 604.90 ORCHITIS AND EPIDIDYMITIS UNSPECIFIED 04/19/2013 MADL BOILER CONTROL ROOM OPERATOR TAMMY L 604.90 ORCHITIS AND EPIDIDYMITIS UNSPECIFIED 04/19/2013 MADL BOILER CONTROL ROOM OPERATOR, TAMMY L 604.90 ORCHITIS AND EPIDIDYMITIS UNSPECIFIED 04/19/2013 FATIMA DO, DENISE K 604.90 ORCHITIS AND EPIDIDYMITIS UNSPECIFIED 04/19/2013 [facility] BOILER CONTROL ROOM OPERATOR, TAMMY L 604.90 ORCHITIS AND EPIDIDYMITIS UNSPECIFIED 04/19/2013 [facility] BOILER CONTROL ROOM OPERATOR, TAMMY L 604.90 ORCHITIS AND EPIDIDYMITIS UNSPECIFIED 04/19/2013 FATIMA DO, DENISE K 604.90 ORCHITIS AND EPIDIDYMITIS UNSPECIFIED 04/19/2013 [facility] BOILER CONTROL ROOM OPERATOR, TAMMY L 604.90 ORCHITIS AND EPIDIDYMITIS UNSPECIFIED 04/19/2013 [facility] BOILER CONTROL ROOM OPERATOR, TAMMY L 604.90 ORCHITIS AND EPIDIDYMITIS UNSPECIFIED 04/19/2013 [facility] BOILER CONTROL ROOM OPERATOR, TAMMY L 604.90 ORCHITIS AND EPIDIDYMITIS [...] K 277.7 DYSMETABOLIC SYNDROME X 05/10/2013 [facility] BOILER CONTROL ROOM OPERATOR, TAMMY L 277.7 DYSMETABOLIC SYNDROME X 05/10/2013 [facility] BOILER CONTROL ROOM OPERATOR, TAMMY L 277.7 DYSMETABOLIC SYNDROME X 05/10/2013 M[facility] BOILER CONTROL ROOM OPERATOR, TAMMY L 277.7 DYSMETABOLIC SYNDROME X 05/10/2013 [facility] BOILER CONTROL ROOM OPERATOR, TAMMY L 277.7 DYSMETABOLIC SYNDROME X 05/10/2013 FATIMA DO, DENISE K 277.7 DYSMETABOLIC SYNDROME X 05/10/2013 [facility] BOILER CONTROL ROOM OPERATOR, TAMMY L 277.7 DYSMETABOLIC SYNDROME X 05/10/2013 [facility] BOILER CONTROL ROOM OPERATOR, TAMMY L 277.7 DYSMETABOLIC SYNDROME X 05/10/2013 FATIMA DO, DENISE K 277.7 DYSMETABOLIC SYNDROME X 05/10/2013 [facility] BOILER CONTROL ROOM OPERATOR, TAMMY L 277.7 DYSMETABOLIC SYNDROME X 05/10/2013 M[facility] BOILER CONTROL ROOM OPERATOR, TAMMY L 277.7 DYSMETABOLIC SYNDROME X 05/10/2013 [facility] BOILER CONTROL ROOM OPERATOR, TAMMY L 277.7 DYSMETABOLIC SYNDROME X [...] OTHER THAN TO MEDICINAL AGENTS 05/29/2013 [facility] BOILER CONTROL ROOM OPERATOR, TAMMY L 461.9 SINUSITIS ACUTE 05/29/2013 [facility] BOILER CONTROL ROOM OPERATOR, TAMMY L 496 COPD 05/29/2013 [facility] BOILER CONTROL ROOM OPERATOR, TAMMY L V15.09 PERSONAL HISTORY OF OTHER ALLERGY OTHER THAN TO MEDICINAL AGENTS 05/29/2013 [facility] BOILER CONTROL ROOM OPERATOR, TAMMY L 461.9 SINUSITIS ACUTE 05/29/2013 [facility] BOILER CONTROL ROOM OPERATOR, TAMMY L 496 COPD 05/29/2013 [facility] BOILER CONTROL ROOM OPERATOR, TAMMY L V15.09 PERSONAL HISTORY OF OTHER ALLERGY OTHER THAN TO MEDICINAL AGENTS 05/29/2013 [facility] BOILER CONTROL ROOM OPERATOR, TAMMY L 461.9 SINUSITIS ACUTE 05/29/2013 [facility] BOILER CONTROL ROOM OPERATOR, TAMMY L 496 COPD 05/29/2013 [facility] BOILER CONTROL ROOM OPERATOR, TAMMY L V15.09 PERSONAL HISTORY OF OTHER ALLERGY OTHER THAN TO MEDICINAL AGENTS 05/29/2013 [facility] BOILER CONTROL ROOM OPERATOR, TAMMY L 461.9 SINUSITIS ACUTE 05/29/2013 M[facility] BOILER CONTROL ROOM OPERATOR, TAMMY L 496 COPD 05/29/2013 [facility] BOILER CONTROL ROOM OPERATOR, TAMMY L V15.09 PERSONAL HISTORY OF OTHER ALLERGY OTHER THAN TO MEDICINAL AGENTS 05/29/2013 FATIMA DO DENISE K 461.9 SINUSITIS ACUTE 05/29/2013 FATIMA DO DENISE K 496 COPD 05/29/2013 FATIMA DO DENISE K V15.09 PERSONAL HISTORY OF OTHER ALLERGY OTHER THAN TO MEDICINAL AGENTS 05/29/2013 [facility] BOILER CONTROL ROOM OPERATOR, TAMMY L 461.9 SINUSITIS ACUTE 05/29/2013 [facility] BOILER CONTROL ROOM OPERATOR, TAMMY L 496 COPD 05/29/2013 [facility] BOILER CONTROL ROOM OPERATOR, TAMMY L V15.09 PERSONAL HISTORY OF OTHER ALLERGY OTHER THAN TO MEDICINAL AGENTS 05/29/2013 [facility] BOILER CONTROL ROOM OPERATOR, TAMMY L 461.9 SINUSITIS ACUTE 05/29/2013 M[facility] BOILER CONTROL ROOM OPERATOR, TAMMY L 496 COPD 05/29/2013 [facility] BOILER CONTROL ROOM OPERATOR, TAMMY L V15.09 PERSONAL HISTORY OF OTHER ALLERGY OTHER THAN TO MEDICINAL AGENTS 05/29/2013 FATIMA DO DENISE K 461.9 SINUSITIS ACUTE 05/29/2013 FATIMA DO DENISE K 496 COPD 05/29/2013 FATIMA DO, DENISE K V15.09 PERSONAL HISTORY OF OTHER ALLERGY OTHER THAN TO MEDICINAL AGENTS 05/29/2013 [facility] BOILER CONTROL ROOM OPERATOR, TAMMY L 461.9 SINUSITIS ACUTE 05/29/2013 M[facility] BOILER CONTROL ROOM OPERATOR, TAMMY L 496 COPD 05/29/2013 [facility] BOILER CONTROL ROOM OPERATOR, TAMMY L V15.09 PERSONAL HISTORY OF OTHER ALLERGY OTHER THAN TO MEDICINAL AGENTS 05/29/2013 [facility] BOILER CONTROL ROOM OPERATOR, TAMMY L 461.9 SINUSITIS ACUTE 05/29/2013 M[facility] BOILER CONTROL ROOM OPERATOR, TAMMY L 496 COPD 05/29/2013 M[facility] BOILER CONTROL ROOM OPERATOR, TAMMY L V15.09 PERSONAL HISTORY OF OTHER ALLERGY OTHER THAN TO MEDICINAL AGENTS 05/29/2013 M[facility] BOILER CONTROL ROOM OPERATOR, TAMMY L 461.9 SINUSITIS ACUTE 05/29/2013 M[facility] BOILER CONTROL ROOM OPERATOR, TAMMY L 496 COPD 05/29/2013 M[facility] BOILER CONTROL ROOM OPERATOR, TAMMY L V15.09 PERSONAL HISTORY OF [...] DENISE K 466.0 BRONCHITIS, ACUTE 06/15/2013 M[facility] BOILER CONTROL ROOM OPERATOR, TAMMY L 466.0 BRONCHITIS, ACUTE 06/15/2013 M[facility] BOILER CONTROL ROOM OPERATOR, TAMMY L 466.0 BRONCHITIS, ACUTE 06/15/2013 M[facility] BOILER CONTROL ROOM OPERATOR, TAMMY L 466.0 BRONCHITIS, ACUTE 06/15/2013 MAD[facility] BOILER CONTROL ROOM OPERATOR, TAMMY L 466.0 BRONCHITIS, ACUTE 06/15/2013 FATIMA DO, DENISE K 466.0 BRONCHITIS, ACUTE 06/15/2013 M[facility] BOILER CONTROL ROOM OPERATOR, TAMMY L 466.0 BRONCHITIS, ACUTE 06/15/2013 M[facility] BOILER CONTROL ROOM OPERATOR, TAMMY L 466.0 BRONCHITIS, ACUTE 06/15/2013 FATIMA DO, DENISE K 466.0 BRONCHITIS, ACUTE 06/15/2013 M[facility] BOILER CONTROL ROOM OPERATOR, TAMMY L 466.0 BRONCHITIS, ACUTE 06/15/2013 M[facility] BOILER CONTROL ROOM OPERATOR, TAMMY L 466.0 BRONCHITIS, ACUTE 06/15/2013 M[facility] BOILER CONTROL ROOM OPERATOR, TAMMY L 466.0 BRONCHITIS, ACUTE 06/15/2013 FATIMA DO, DENISE K 466.0 BRONCHITIS, ACUTE 10/02/2013 MADL BOILER CONTROL ROOM OPERATOR, TAMMY L 465.9 UPPER RESPIRATORY INFECTION 10/02/2013 MADL BOILER CONTROL ROOM OPERATOR, TAMMY L 465.9 UPPER RESPIRATORY INFECTION 10/02/2013 MADL BOILER CONTROL ROOM OPERATOR, TAMMY L 465.9 UPPER RESPIRATORY INFECTION 10/02/2013 MADL BOILER CONTROL ROOM OPERATOR, TAMMY L 465.9 UPPER RESPIRATORY INFECTION 10/02/2013 FATIMA DO, DENISE K 465.9 UPPER RESPIRATORY INFECTION 10/02/2013 MADL BOILER CONTROL ROOM OPERATOR, TAMMY L 465.9 UPPER RESPIRATORY INFECTION 10/02/2013 MADL BOILER CONTROL ROOM OPERATOR, TAMMY L 465.9 UPPER RESPIRATORY INFECTION 10/02/2013 FATIMA DO, DENISE K 465.9 UPPER RESPIRATORY INFECTION 10/02/2013 MADL BOILER CONTROL ROOM OPERATOR, TAMMY L 465.9 UPPER RESPIRATORY INFECTION 10/02/2013 MADL BOILER CONTROL ROOM OPERATOR, TAMMY L 465.9 UPPER RESPIRATORY INFECTION 10/02/2013 MADL BOILER CONTROL ROOM OPERATOR, TAMMY L 465.9 UPPER RESPIRATORY INFECTION 10/02/2013 FATIMA DO, DENISE K 465.9 UPPER RESPIRATORY INFECTION 10/31/2013 MADL BOILER CONTROL ROOM OPERATOR, TAMMY L 719.44 PAIN IN JOINT INVOLVING HAND 10/31/2013 MADL BOILER CONTROL ROOM OPERATOR, TAMMY L 719.44 PAIN IN JOINT INVOLVING HAND 10/31/2013 MADL BOILER CONTROL ROOM OPERATOR, TAMMY L 719.44 PAIN IN JOINT INVOLVING HAND 10/31/2013 FATIMA DO, DENISE K 719.44 PAIN IN JOINT INVOLVING HAND 10/31/2013 MADL BOILER CONTROL ROOM OPERATOR, TAMMY L 719.44 PAIN IN JOINT INVOLVING HAND 10/31/2013 MADL BOILER CONTROL ROOM OPERATOR, TAMMY L 719.44 PAIN IN JOINT INVOLVING HAND 10/31/2013 FATIMA DO DENISE K 719.44 PAIN IN JOINT INVOLVING HAND 10/31/2013 MADL BOILER CONTROL ROOM OPERATOR, TAMMY L 719.44 PAIN IN JOINT INVOLVING HAND 10/31/2013 MADL BOILER CONTROL ROOM OPERATOR, TAMMY L 719.44 PAIN IN JOINT INVOLVING HAND 10/31/2013 MADL BOILER CONTROL ROOM OPERATOR, TAMMY L 719.44 PAIN IN JOINT INVOLVING HAND 10/31/2013 FATIMA DO DENISE K 719.44 PAIN IN JOINT INVOLVING HAND 11/30/2013 MADL BOILER CONTROL ROOM OPERATOR, TAMMY L 564.00 UNSPECIFIED CONSTIPATION 11/30/2013 MADL BOILER CONTROL ROOM OPERATOR, TAMMY L V58.69 LONG-TERM (CURRENT) USE OF OTHER MEDICATIONS 11/30/2013 FATIMA DO, DENISE K 564.00 UNSPECIFIED CONSTIPATION 11/30/2013 FATIMA DO, DENISE K V58.69 LONG-TERM (CURRENT) USE OF OTHER MEDICATIONS 11/30/2013 MADL BOILER CONTROL ROOM OPERATOR, TAMMY L 564.00 UNSPECIFIED CONSTIPATION 11/30/2013 MADL BOILER CONTROL ROOM OPERATOR, TAMMY L V58.69 LONG-TERM (CURRENT) USE OF OTHER MEDICATIONS 11/30/2013 MADL BOILER CONTROL ROOM OPERATOR, TAMMY L 564.00 UNSPECIFIED CONSTIPATION 11/30/2013 MADL BOILER CONTROL ROOM OPERATOR, TAMMY L V58.69 LONG-TERM (CURRENT) USE OF OTHER MEDICATIONS 11/30/2013 FATIMA DO, DENISE K 564.00 UNSPECIFIED CONSTIPATION 11/30/2013 FATIMA DO, DENISE K V58.69 LONG-TERM (CURRENT) USE OF OTHER MEDICATIONS 11/30/2013 MADL BOILER CONTROL ROOM OPERATOR, TAMMY L 564.00 UNSPECIFIED CONSTIPATION 11/30/2013 MADL BOILER CONTROL ROOM OPERATOR, TAMMY L V58.69 LONG-TERM (CURRENT) USE OF OTHER MEDICATIONS 11/30/2013 MADL BOILER CONTROL ROOM OPERATOR, TAMMY L 564.00 UNSPECIFIED CONSTIPATION 11/30/2013 MADL BOILER CONTROL ROOM OPERATOR, TAMMY L V58.69 LONG-TERM (CURRENT) USE OF OTHER MEDICATIONS 11/30/2013 MADL BOILER CONTROL ROOM OPERATOR, TAMMY L 564.00 UNSPECIFIED CONSTIPATION 11/30/2013 MADL BOILER CONTROL ROOM OPERATOR, TAMMY L V58.69 LONG-TERM (CURRENT) USE OF OTHER MEDICATIONS 11/30/2013 FATIMA DO DENISE K 564.00 UNSPECIFIED CONSTIPATION 11/30/2013 FATIMA DO, DENISE K V58.69 LONG-TERM (CURRENT) USE OF OTHER MEDICATIONS 01/12/2014 AC VOGT DO Ot 564.00 UNSPEC CONSTIPATION 01/12/2014 AC VOGT DO Ot 789.01 ABDOMINAL PAIN, RIGHT UPPER QUADRANT 01/30/2014 FATIMA DENISE HERNANDEZ K V03.82 PPV23 (PNEUMOVAX) DX 01/30/2014 MADL BOILER CONTROL ROOM OPERATOR, TAMMY L V03.82 PPV23 (PNEUMOVAX) DX 01/30/2014 MADL BOILER CONTROL ROOM OPERATOR, TAMMY L V03.82 PPV23 (PNEUMOVAX) DX 01/30/2014 AKUA HERNANDEZKHADRAA K V03.82 PPV23 (PNEUMOVAX) DX 01/30/2014 MADL BOILER CONTROL ROOM OPERATOR, TAMMY L V03.82 PPV23 (PNEUMOVAX) DX 01/30/2014 MADL BOILER CONTROL ROOM OPERATOR, TAMMY L V03.82 PPV23 (PNEUMOVAX) DX 01/30/2014 CARLEEL BOILER CONTROL ROOM OPERATOR, TAMMY L V03.82 PPV23 (PNEUMOVAX) DX 01/30/2014 AKUA HERNANDEZDENISE K V03.82 PPV23 (PNEUMOVAX) DX 03/12/2014 CARLEEL BOILER CONTROL ROOM OPERATOR, TAMMY L 719.45 PAIN IN JOINT INVOLVING PELVIC REGION AND THIGH 03/12/2014 MADL BOILER CONTROL ROOM OPERATOR, TAMMY L 719.46 PAIN IN JOINT INVOLVING LOWER LEG 03/12/2014 DENISE FATIMA DO K 719.45 PAIN IN JOINT INVOLVING PELVIC REGION AND THIGH 03/12/2014 DENISE FATIMA DO K 719.46 PAIN IN JOINT INVOLVING LOWER LEG 03/12/2014 MADL BOILER CONTROL ROOM OPERATOR, TAMMY L 719.45 PAIN IN JOINT INVOLVING PELVIC REGION AND THIGH 03/12/2014 MADL BOILER CONTROL ROOM OPERATOR, TAMMY L 719.46 PAIN IN JOINT INVOLVING LOWER LEG 03/12/2014 MADL BOILER CONTROL ROOM OPERATOR, TAMMY L 719.45 PAIN IN JOINT INVOLVING PELVIC REGION AND THIGH 03/12/2014 MADL BOILER CONTROL ROOM OPERATOR, TAMMY L 719.46 PAIN IN JOINT INVOLVING LOWER LEG 03/12/2014 MADL BOILER CONTROL ROOM OPERATOR, TAMMY L 719.45 PAIN IN JOINT INVOLVING PELVIC REGION AND THIGH 03/12/2014 MADL BOILER CONTROL ROOM OPERATOR, TAMMY L 719.46 PAIN IN JOINT INVOLVING LOWER LEG 03/12/2014 DENISE FATIMA DO K 719.45 PAIN IN JOINT INVOLVING PELVIC REGION AND THIGH 03/12/2014 DENISE FATIMA DO K 719.46 PAIN IN JOINT INVOLVING LOWER LEG 04/04/2014 MYLA NUÑEZ, CASSI Santos Ot V72.84 04/25/2014 MADL BOILER CONTROL ROOM OPERATOR, TAMMY L 381.02 ACUTE MUCOID OTITIS MEDIA 04/25/2014 MADL BOILER CONTROL ROOM OPERATOR, TAMMY L 719.43 PAIN IN JOINT INVOLVING FOREARM 04/25/2014 MADL BOILER CONTROL ROOM OPERATOR, TAMMY L 729.1 MYALGIA AND MYOSITIS UNSPECIFIED 04/25/2014 MADL BOILER CONTROL ROOM OPERATOR, TAMMY L 381.02 ACUTE MUCOID OTITIS MEDIA 04/25/2014 MADL BOILER CONTROL ROOM OPERATOR, TAMMY L 719.43 PAIN IN JOINT INVOLVING FOREARM 04/25/2014 MADL BOILER CONTROL ROOM OPERATOR, TAMMY L 729.1 MYALGIA AND MYOSITIS UNSPECIFIED 04/25/2014 MADL BOILER CONTROL ROOM OPERATOR, TAMMY L 381.02 ACUTE MUCOID OTITIS MEDIA 04/25/2014 MADL BOILER CONTROL ROOM OPERATOR, TAMMY L 719.43 PAIN IN JOINT INVOLVING FOREARM 04/25/2014 MADL BOILER CONTROL ROOM OPERATOR, TAMMY L 729.1 MYALGIA AND MYOSITIS UNSPECIFIED 04/25/2014 DENISE FATIMA DO K 381.02 ACUTE MUCOID OTITIS MEDIA 04/25/2014 DENISE FATIMA DO K 719.43 PAIN IN JOINT INVOLVING FOREARM 04/25/2014 DENISE FATIMA DO 729.1 MYALGIA AND MYOSITIS UNSPECIFIED 05/07/2014 MYLA NUÑEZ, CASSI Santos Ot 211.3 BENIGN NEOPLASM LG BOWEL 05/07/2014 CASSI LANZA MD Ot 401.9 HYPERTENSION NOS 05/07/2014 CASSI LANZA MD Ot 496 CHR AIRWAY OBSTRUCT NEC 05/07/2014 CASSI LANZA MD Ot 562.10 DIVERTICULOSIS COLON (W/O MENT OF HEMORR 05/07/2014 CASSI LANZA MD Ot 715.90 OSTEOARTHROS NOS-UNSPEC 05/07/2014 CASSI LANZA MD Ot V67.09 SURGERY FOLLOW-UP, OTHER SURGERY 05/08/2014 MADL BOILER CONTROL ROOM OPERATOR, TAMMY L 720.2 SACROILIITIS NOT ELSEWHERE CLASSIFIED 05/08/2014 MADL BOILER CONTROL ROOM OPERATOR, TAMMY L 724.3 SCIATICA 05/08/2014 MADL BOILER CONTROL ROOM OPERATOR, TAMMY L 720.2 SACROILIITIS NOT ELSEWHERE CLASSIFIED 05/08/2014 MADL BOILER CONTROL ROOM OPERATOR, TAMMY L 724.3 SCIATICA 05/08/2014 FATIMA DO, DENISE K 720.2 SACROILIITIS NOT ELSEWHERE CLASSIFIED 05/08/2014 FATIMA DO, DENISE K 724.3 SCIATICA 05/22/2014 MADL BOILER CONTROL ROOM OPERATOR, TAMMY L 724.2 BACK PAIN, LOWER 05/22/2014 MADL BOILER CONTROL ROOM OPERATOR, TAMMY L 724.2 BACK PAIN, LOWER 05/22/2014 FATIMA DO, DENISE K 724.2 BACK PAIN, LOWER 06/12/2014 MADL BOILER CONTROL ROOM OPERATOR, TAMMY L 789.01 ABDOMINAL PAIN RIGHT UPPER QUADRANT 06/12/2014 MADL BOILER CONTROL ROOM OPERATOR, TAMMY L 789.06 ABDOMINAL PAIN EPIGASTRIC 06/12/2014 MADL BOILER CONTROL ROOM OPERATOR, TAMMY L 789.01 ABDOMINAL PAIN RIGHT UPPER QUADRANT 06/12/2014 MADL BOILER CONTROL ROOM OPERATOR, TAMMY L 789.06 ABDOMINAL PAIN EPIGASTRIC 06/12/2014 FATIMA DO DENISE K 789.01 ABDOMINAL PAIN RIGHT UPPER QUADRANT 06/12/2014 FATIMA DO DENISE K 789.06 ABDOMINAL PAIN EPIGASTRIC 06/27/2014 AKUA HERNANDEZ DENISE K 536.8 DYSPEPSIA AND OTHER SPECIFIED DISORDERS OF FUNCTION OF STOMACH 06/27/2014 AKUA HERNANDEZ DENISE K 787.02 NAUSEA ALONE 07/09/2014 CASSI LANZA MD Ot 244.9 HYPOTHYROIDISM NOS 07/09/2014 CASSI LANZA MD Ot 401.9 HYPERTENSION NOS 07/09/2014 CASSI LANZA MD Ot 496 CHR AIRWAY OBSTRUCT NEC 07/09/2014 CASSI LANZA MD Ot 530.10 ESOPHAGITIS NOS 07/09/2014 CASSI LANZA MD Ot 535.40 OTH SPECIFIED GASTRITIS,W/O MENTION OF H 07/10/2014 CASSI LANZA MD Ot V72.84 07/10/2014 CASSI LANZA MD, Ot V72.84 07/11/2014 MYLA NUÑEZ, CASSI Santos Ot V72.84 07/11/2014 MYLA NUÑEZ, CASSI Santos Ot V72.84 07/25/2014 MADL, TAMMY L INSTRUMENTAL TEACHER Ot 571.8 07/25/2014 MADL, TAMMY L INSTRUMENTAL TEACHER Ot 789.09 08/01/2014 MYLA NUÑEZ, CASSI Danielle Ot 305.1 TOBACCO USE DISORDER 08/01/2014 MLYA NUÑEZ, CASSI Santos Ot 575.8 DIS OF GALLBLADDER NEC 08/10/2014 MADL, TAMMY L INSTRUMENTAL TEACHER Ot 571.8 08/10/2014 MADL, TAMMY L INSTRUMENTAL TEACHER Ot 789.09 08/18/2014 MADL, TAMMY L INSTRUMENTAL TEACHER Ot 575.8 08/31/2014 MYLA NUÑEZ, CASSI Santos Ot 575.8 08/31/2014 MYLA NUÑEZ, CASSI Danielle Ot V72.63 08/31/2014 MYLA NUÑEZ, CASSI Santos Ot V74.8 10/18/2014 Ot 789.01 10/18/2014 Ot 789.01 10/18/2014 Ot V72.84 10/18/2014 Ot 473.9 10/18/2014 Ot 780.4 10/18/2014 ZANDRA LOPEZ R INSTRUMENTAL TEACHER Ot 719.47 10/18/2014 ZANDRA LOPEZ R INSTRUMENTAL TEACHER Ot 782.2 10/18/2014 MADL, TAMMY L INSTRUMENTAL TEACHER Ot 571.8 10/18/2014 MADL, TAMMY L INSTRUMENTAL TEACHER Ot 787.02 10/18/2014 MADL, TAMMY L INSTRUMENTAL TEACHER Ot 787.91 10/18/2014 MADL, TAMMY L INSTRUMENTAL TEACHER Ot 789.01 10/18/2014 MYLA NUÑEZ, CASSI Santos Ot V72.84 10/18/2014 MYLA NUÑEZ, CASSI Danielle Ot V72.84 10/18/2014 MYLA NUÑEZ, CASSI Santos Ot V72.84 10/18/2014 MADL, TAMMY L INSTRUMENTAL TEACHER Ot 571.8 10/18/2014 MADL, TAMMY L INSTRUMENTAL TEACHER Ot 789.09 10/18/2014 MADL, TAMMY L INSTRUMENTAL TEACHER Ot 575.8 10/18/2014 MYLA NUÑEZ, CASSI M Ot V72.84 10/18/2014 MYLA NUÑEZ, CASSI M Ot 575.8 10/18/2014 MYLA NUÑEZ, CASSI M Ot V72.63 10/18/2014 MYLA NUÑEZ, CASSI M Ot V74.8 10/18/2014 MYLA NUÑEZ, CASSI M Ot 575.8 10/18/2014 MYLA NUÑEZ, CASSI M Ot V72.63 10/18/2014 MYLA NUÑEZ, CASSI M Ot V74.8 10/18/2014 MADL, TAMMY L INSTRUMENTAL TEACHER Ot 575.8 11/27/2014 Ot 789.01 11/27/2014 Ot 789.01 11/27/2014 Ot V72.84 11/27/2014 Ot 473.9 11/27/2014 Ot 780.4 11/27/2014 JEFERSON LOPEZIA R INSTRUMENTAL TEACHER Ot 719.47 11/27/2014 ZANDRA LOPEZ R INSTRUMENTAL TEACHER Ot 782.2 11/27/2014 MADL, TAMMY L INSTRUMENTAL TEACHER Ot 571.8 11/27/2014 MADL, TAMMY L INSTRUMENTAL TEACHER Ot 787.02 11/27/2014 MADL, TAMMY L INSTRUMENTAL TEACHER Ot 787.91 11/27/2014 MADL, TAMMY L INSTRUMENTAL TEACHER Ot 789.01 11/27/2014 MYLA NUÑEZ, CASSI M Ot V72.84 11/27/2014 MYLA NUÑEZ, CASSI M Ot V72.84 11/27/2014 MYLA NUÑEZ, CASSI M Ot V72.84 11/27/2014 MADL, TAMMY L INSTRUMENTAL TEACHER Ot 571.8 11/27/2014 MADL, TAMMY L INSTRUMENTAL TEACHER Ot 789.09 11/27/2014 MADL, TAMMY L INSTRUMENTAL TEACHER Ot 575.8 11/27/2014 MYLA NUÑEZ, CASSI M Ot V72.84 11/27/2014 MYLA NUÑEZ, CASSI M Ot 575.8 11/27/2014 MYLA NUÑEZ, CASSI M Ot V72.63 11/27/2014 MYLA NUÑEZ, CASSI M Ot V74.8 11/27/2014 MYLA NUÑEZ, CASSI M Ot 575.8 11/27/2014 MYLA NUÑEZ, CASSI Santos Ot V72.63 11/27/2014 MYLA NUÑEZ, CASSI M Ot V74.8 11/27/2014 MADL, TAMMY L INSTRUMENTAL TEACHER Ot 575.8 11/27/2014 MADL, TAMMY L INSTRUMENTAL TEACHER Ot 575.8 12/17/2014 MADL, TAMMY L INSTRUMENTAL TEACHER Ot 575.8 12/17/2014 MYLA NUÑEZ, CASSI M Ot 575.8 12/17/2014 MYLA NUÑEZ, CASSI Santos Ot V72.63 12/17/2014 MYLA NUÑEZ, CASSI M Ot V74.8 12/20/2014 MADL, TAMMY L INSTRUMENTAL TEACHER Ot 794.5 06/21/2015 Ot 789.01 06/21/2015 Ot 789.01 06/21/2015 Ot V72.84 06/21/2015 Ot 473.9 06/21/2015 Ot 780.4 06/21/2015 JEFERSON LOPEZIA R INSTRUMENTAL TEACHER Ot 719.47 06/21/2015 JEFERSON LOPEZIA R INSTRUMENTAL TEACHER Ot 782.2 06/21/2015 MADL, TAMMY L INSTRUMENTAL TEACHER Ot 571.8 06/21/2015 MADL, TAMMY L INSTRUMENTAL TEACHER Ot 787.02 06/21/2015 MADL, TAMMY L INSTRUMENTAL TEACHER Ot 787.91 06/21/2015 MADL, TAMMY L INSTRUMENTAL TEACHER Ot 789.01 06/21/2015 MYLA NUÑEZ, CASSI M Ot V72.84 06/21/2015 MYLA NUÑEZ, CASSI M Ot V72.84 06/21/2015 MYLA NUÑEZ, CASSI M Ot V72.84 06/21/2015 MADL, TAMMY L INSTRUMENTAL TEACHER Ot 571.8 06/21/2015 MADL, TAMMY L INSTRUMENTAL TEACHER Ot 789.09 06/21/2015 MADL, TAMMY L INSTRUMENTAL TEACHER Ot 575.8 06/21/2015 MYLA NUÑEZ, CASSI M Ot V72.84 06/21/2015 MYLA NUÑEZ, CASSI M Ot 575.8 06/21/2015 MYLA NUÑEZ, CASSI M Ot V72.63 06/21/2015 MYLA NUÑEZ, CASSI Santos Ot V74.8 06/21/2015 MADL, TAMMY L INSTRUMENTAL TEACHER Ot 794.5 06/21/2015 MADL, TAMMY L INSTRUMENTAL TEACHER Ot 719.41 06/21/2015 Ot J40 06/21/2015 Ot J44.1 06/21/2015 MADArabella, TAMMY L INSTRUMENTAL TEACHER Ot 794.5 07/06/2015 GABRIEL MOREAU DO Ot G47.33 OBSTRUCTIVE SLEEP APNEA (ADULT) (PEDIATR 07/09/2015 GABRIEL MOREAU DO Ot G47.33 OBSTRUCTIVE SLEEP APNEA (ADULT) (PEDIATR 07/10/2015 Ot J40 BRONCHITIS, NOT SPECIFIED ACUTE OR CH 07/10/2015 Ot J44.1 CHRONIC OBSTRUCTIVE PULMONARY DISEASE W 07/15/2015 MADL, TAMMY L INSTRUMENTAL TEACHER Ot 794.5 ABN THYROID FUNCT STUDY 09/25/2015 Ot J40 BRONCHITIS, NOT SPECIFIED ACUTE OR CH 09/25/2015 Ot J44.1 CHRONIC OBSTRUCTIVE PULMONARY DISEASE W 10/07/2015 Ot 789.01 ABDOMINAL PAIN, RIGHT UPPER QUADRANT 10/07/2015 Ot 789.01 ABDOMINAL PAIN, RIGHT UPPER QUADRANT 10/07/2015 Ot V72.84 EXAM PRE- OPERATIVE NOS 10/07/2015 Ot 473.9 CHRONIC SINUSITIS NOS 10/07/2015 Ot 780.4 DIZZINESS AND GIDDINESS 10/07/2015 ZANDRA LOPEZ INSTRUMENTAL TEACHER Ot 719.47 JOINT PAIN-ANKLE 10/07/2015 ZANDRA LOPEZ INSTRUMENTAL TEACHER Ot 782.2 LOCAL SUPRFICIAL SWELLNG 10/07/2015 MADL TAMMY L INSTRUMENTAL TEACHER Ot 571.8 CHRONIC LIVER DIS NEC 10/07/2015 MADL, TAMMY L INSTRUMENTAL TEACHER Ot 787.02 NAUSEA ALONE 10/07/2015 MADL, TAMMY L INSTRUMENTAL TEACHER Ot 787.91 DIARRHEA 10/07/2015 MADL, TAMMY L INSTRUMENTAL TEACHER Ot 789.01 ABDOMINAL PAIN, RIGHT UPPER QUADRANT 10/07/2015 CASSI LANZA MD Ot V72.84 EXAM PRE-OPERATIVE NOS 10/07/2015 CASSI LANZA MD Ot V72.84 EXAM PRE-OPERATIVE NOS 10/07/2015 CASSI LANZA MD Ot V72.84 EXAM PRE-OPERATIVE NOS 10/07/2015 LAM COPELANDA L INSTRUMENTAL TEACHER Ot 571.8 CHRONIC LIVER DIS NEC 10/07/2015 LAM COPELANDA L INSTRUMENTAL TEACHER Ot 789.09 ABDOMINAL PAIN, OTHER SPECIFIED SITE 10/07/2015 SHAKIR COPELANDNYA L INSTRUMENTAL TEACHER Ot 575.8 DIS OF GALLBLADDER NEC 10/07/2015 MYLA NUÑEZ, CASSI Santos Ot V72.84 EXAM PRE-OPERATIVE NOS 10/07/2015 MYLA NUÑEZ, CASSI Santos Ot 575.8 DIS OF GALLBLADDER NEC 10/07/2015 MYLA NUÑEZ, CASSI Santos Ot V72.63 PRE-PROCEDURAL LABORATORY EXAMINATION 10/07/2015 MYLA NUÑEZ, CASSI Santos Ot V74.8 SCREEN-BACTERIAL DIS NEC 10/07/2015 LAM COPELANDA L INSTRUMENTAL TEACHER Ot 794.5 ABN THYROID FUNCT STUDY 10/07/2015 LAM COPELANDA L INSTRUMENTAL TEACHER Ot 719.41 JOINT PAIN-SHLDER 10/07/2015 Ot J40 [...] RIGHT UPPER QUADRANT 01/23/2016 Ot V72.84 EXAM PRE- OPERATIVE NOS 01/23/2016 Ot 473.9 CHRONIC SINUSITIS NOS 01/23/2016 Ot 780.4 DIZZINESS AND GIDDINESS 01/23/2016 ZANDRA LOPEZ INSTRUMENTAL TEACHER Ot 719.47 JOINT PAIN-ANKLE 01/23/2016 ZANDRA LOPEZ INSTRUMENTAL TEACHER Ot 782.2 LOCAL SUPRFICIAL SWELLNG 01/23/2016 LAM COPELANDA L INSTRUMENTAL TEACHER Ot 571.8 CHRONIC LIVER DIS NEC 01/23/2016 LAM COPELANDA L INSTRUMENTAL TEACHER Ot 787.02 NAUSEA ALONE 01/23/2016 MIN, TAMMY L INSTRUMENTAL TEACHER Ot 787.91 DIARRHEA 01/23/2016 LAM COPELANDA L INSTRUMENTAL TEACHER Ot 789.01 ABDOMINAL PAIN, RIGHT UPPER QUADRANT 01/23/2016 MYLA NUÑEZ, CASSI Santos Ot V72.84 EXAM PRE-OPERATIVE NOS 01/23/2016 MYLA NUÑEZ, CASSI Santos Ot V72.84 EXAM PRE-OPERATIVE NOS 01/23/2016 MYLA NUÑEZ, CASSI Santos Ot V72.84 EXAM PRE-OPERATIVE NOS 01/23/2016 LAM COPELANDA L INSTRUMENTAL TEACHER Ot 571.8 CHRONIC LIVER DIS NEC 01/23/2016 MELLY COPELANDWNYA L INSTRUMENTAL TEACHER Ot 789.09 ABDOMINAL PAIN, OTHER SPECIFIED SITE 01/23/2016 CARLEEArabella TAMMY L INSTRUMENTAL TEACHER Ot 575.8 DIS OF GALLBLADDER NEC 01/23/2016 MYLA NUÑEZ, CASSI Santos Ot V72.84 EXAM PRE-OPERATIVE NOS 01/23/2016 MYLA NUÑEZ, CASSI Santos Ot 575.8 DIS OF GALLBLADDER NEC 01/23/2016 MYLA NUÑEZ, CASSI Santos Ot V72.63 PRE-PROCEDURAL LABORATORY EXAMINATION 01/23/2016 MYLA NUÑEZ, CASSI Santos Ot V74.8 SCREEN-BACTERIAL DIS NEC 01/23/2016 LAM COPELANDA L INSTRUMENTAL TEACHER Ot 794.5 ABN THYROID FUNCT STUDY 01/23/2016 TAMMY COPELAND L INSTRUMENTAL TEACHER Ot 719.41 JOINT PAIN-SHLDER 01/23/2016 Ot J40 [...] LANZA MD Ot K64.8 OTHER HEMORRHOIDS 03/02/2016 LAM COPELANDA L INSTRUMENTAL TEACHER Ot R10.12 LEFT UPPER QUADRANT PAIN 03/24/2016 MELLY COPELANDWNYA L INSTRUMENTAL TEACHER Ot R10.12 LEFT UPPER QUADRANT PAIN 04/02/2016 [...] MD Ot I25.10 ATHSCL HEART DISEASE OF [place] CORONARY 04/22/2016 ALMA BLANKENSHIP MD Ot J45.909 UNSPECIFIED ASTHMA, UNCOMPLICATED 04/22/2016 ALMA BLANKENSHIP MD Ot R07.89 OTHER CHEST PAIN 04/22/2016 ALMA BLANKENSHIP MD Ot R94.39 ABNORMAL RESULT OF OTHER CARDIOVASCULAR 04/22/2016 ALMA BLANKENSHIP MD Ot Z79.899 OTHER [facility] (CURRENT) DRUG THERAPY 04/22/2016 ALMA BLANKENSHIP MD Ot Z87.891 PERSONAL HISTORY OF NICOTINE DEPENDENCE 04/29/2016 MADL, TAMMY L INSTRUMENTAL TEACHER Ot R10.12 LEFT UPPER QUADRANT PAIN 04/30/2016 MADLSHAKIRTAMMY L INSTRUMENTAL TEACHER Ot M19.012 PRIMARY OSTEOARTHRITIS, LEFT SHOULDER 04/30/2016 MADLAM BellA L INSTRUMENTAL TEACHER Ot M75.52 BURSITIS OF LEFT SHOULDER 04/30/2016 ALMA BLANKENSHIP MD Ot E78.5 HYPERLIPIDEMIA, UNSPECIFIED 04/30/2016 ALMA BLANKENSHIP MD Ot G47.33 OBSTRUCTIVE SLEEP APNEA (ADULT) (PEDIATR 04/30/2016 ALMA BLANKENSHIP MD Ot I10 ESSENTIAL (PRIMARY) HYPERTENSION 04/30/2016 ALMA BLANKENSHIP MD Ot I25.10 ATHSCL HEART DISEASE OF [place] CORONARY 04/30/2016 ALMA BLANKENSHIP MD Ot J45.909 UNSPECIFIED ASTHMA, UNCOMPLICATED 04/30/2016 ALMA BLANKENSHIP MD Ot R07.89 OTHER CHEST PAIN 04/30/2016 ALMA BLANKENSHIP MD Ot R94.39 ABNORMAL RESULT OF OTHER CARDIOVASCULAR 04/30/2016 ALMA BLANKENSHIP MD Ot 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 04/30/2016 ALMA BLANKENSHIP MD [...] MD Ot I25.10 ATHSCL HEART DISEASE OF [place] CORONARY 05/02/2016 ALMA BLANKENSHIP MD Ot J45.909 UNSPECIFIED ASTHMA, UNCOMPLICATED 05/02/2016 ALMA BLANKENSHIP MD Ot R07.89 OTHER CHEST PAIN 05/02/2016 ALMA BLANKENSHIP MD Ot R94.39 ABNORMAL RESULT OF OTHER CARDIOVASCULAR 05/02/2016 AMLA BLANKENSHIP MD Ot Z79.899 OTHER [facility] (CURRENT) DRUG THERAPY 05/02/2016 ALMA BLANKENSHIP MD Ot Z87.891 PERSONAL HISTORY OF NICOTINE DEPENDENCE 05/05/2016 ALMA BLANKENSHIP MD Ot G47.33 OBSTRUCTIVE SLEEP APNEA (ADULT) (PEDIATR 05/05/2016 ALMA BLANKENSHIP MD Ot I51.9 HEART DISEASE, UNSPECIFIED 05/05/2016 ALMA BLANKENSHIP MD Ot R06.02 SHORTNESS OF BREATH 05/05/2016 ALMA BLANKENSHIP MD Ot R07.9 CHEST PAIN, UNSPECIFIED 05/05/2016 CARLEELTAMMY INSTRUMENTAL TEACHER Ot R10.12 LEFT UPPER QUADRANT PAIN 05/06/2016 ALMA BLANKENSHIP MD Ot G47.33 OBSTRUCTIVE SLEEP APNEA (ADULT) (PEDIATR 05/06/2016 ALMA BLANKENSHIP MD Ot I51.9 HEART DISEASE, UNSPECIFIED 05/06/2016 ALMA BLANKENSHIP MD Ot M19.90 UNSPECIFIED OSTEOARTHRITIS, UNSPECIFIED 05/06/2016 ALMA BLANKENSHIP MD Ot M54.9 DORSALGIA, UNSPECIFIED 05/06/2016 ALMA BLANKENSHIP MD Ot R06.02 SHORTNESS OF BREATH 05/06/2016 ALMA BLANKENSHIP MD Ot R07.9 CHEST PAIN, UNSPECIFIED 05/21/2016 MADTAMMY Bell L INSTRUMENTAL TEACHER Ot M19.012 PRIMARY OSTEOARTHRITIS, LEFT SHOULDER 05/21/2016 CARLEELTAMMY L INSTRUMENTAL TEACHER Ot M75.52 BURSITIS OF LEFT SHOULDER 05/21/2016 TAE RUTH MD, Ot M75.102 UNSP ROTATR-CUFF TEAR/RUPTR OF LEFT SHOU 05/21/2016 TAE RUTH MD Ot Z01.818 ENCOUNTER FOR OTHER PREPROCEDURAL EXAMIN 05/21/2016 TAE RUTH MD Ot Z11.2 ENCOUNTER FOR SCREENING FOR OTHER BACTER 05/22/2016 TAE RUTH MD Ot M75.102 UNSP ROTATR-CUFF TEAR/RUPTR OF LEFT SHOU 05/22/2016 TAE RUTH MD Ot Z01.818 ENCOUNTER FOR OTHER PREPROCEDURAL EXAMIN 05/22/2016 TAE RUTH MD Ot Z11.2 ENCOUNTER FOR SCREENING FOR OTHER BACTER 05/27/2016 TAE RUTH MD, Ot M75.102 UNSP ROTATR-CUFF TEAR/RUPTR OF LEFT SHOU 05/27/2016 TAE RUTH MD Ot Z01.818 ENCOUNTER FOR OTHER PREPROCEDURAL EXAMIN 05/27/2016 TAE RUTH MD, Ot Z11.2 ENCOUNTER FOR SCREENING FOR OTHER BACTER 05/28/2016 ALMA BLANKENSHIP MD Ot G47.33 OBSTRUCTIVE SLEEP APNEA (ADULT) (PEDIATR 05/28/2016 ALMA BLANKENSHIP MD Ot I51.9 HEART DISEASE, UNSPECIFIED 05/28/2016 ALMA BLANKENSHIP MD Ot M19.90 UNSPECIFIED OSTEOARTHRITIS, UNSPECIFIED 05/28/2016 ALMA BLANKENSHIP MD Ot M54.9 DORSALGIA, UNSPECIFIED 05/28/2016 ALMA BLANKENSHIP MD Ot R06.02 SHORTNESS OF BREATH 05/28/2016 ALMA BLANKENSHIP MD Ot R07.9 CHEST PAIN, UNSPECIFIED 05/28/2016 TAMMY COPELAND Ot M19.012 PRIMARY OSTEOARTHRITIS, LEFT SHOULDER 05/28/2016 TAMMY COPELAND Ot M75.52 BURSITIS OF LEFT SHOULDER 06/10/2016 TAE RUTH MD Ot E03.9 HYPOTHYROIDISM, UNSPECIFIED 06/10/2016 TAE RUTH MD Ot I10 ESSENTIAL (PRIMARY) HYPERTENSION 06/10/2016 TAE RUTH MD Ot M75.102 UNSP ROTATR-CUFF TEAR/RUPTR OF LEFT SHOU 06/10/2016 TAE RUTH MD, Ot 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, LEFT SHOULDER 06/10/2016 TAE RUTH MD Ot R73.02 IMPAIRED GLUCOSE TOLERANCE (ORAL) 06/10/2016 TAE RUTH MD, Ot Z79.899 OTHER [facility] (CURRENT) DRUG THERAPY 06/11/2016 TAE RUTH MD Ot E03.9 HYPOTHYROIDISM, UNSPECIFIED 06/11/2016 TAE RUTH MD Ot I10 ESSENTIAL (PRIMARY) HYPERTENSION 06/11/2016 TAE RUTH MD Ot M75.102 UNSP ROTATR-CUFF TEAR/RUPTR OF LEFT SHOU 06/11/2016 TAE RUTH MD, Ot 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, LEFT SHOULDER 06/11/2016 TAE RUTH MD Ot R73.02 IMPAIRED GLUCOSE TOLERANCE (ORAL) 06/11/2016 TAE RUTH MD, Ot 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 06/16/2016 TAE RUTH MD, Ot E03.9 HYPOTHYROIDISM, UNSPECIFIED 06/16/2016 TAE RUTH MD Ot I10 ESSENTIAL (PRIMARY) HYPERTENSION 06/16/2016 TAE RUTH MD Ot M75.102 UNSP ROTATR-CUFF TEAR/RUPTR OF LEFT SHOU 06/16/2016 TAE RUTH MD Ot 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, LEFT SHOULDER 06/16/2016 TAE RUTH MD Ot R73.02 IMPAIRED GLUCOSE TOLERANCE (ORAL) 06/16/2016 TAE RUTH MD Ot 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 07/17/2016 TAE RUTH MD Ot M25.512 PAIN IN LEFT SHOULDER 07/17/2016 TAE RUTH MD Ot Z98.890 OTHER SPECIFIED POSTPROCEDURAL STATES 08/28/2016 Ot 789.01 ABDOMINAL PAIN, RIGHT UPPER QUADRANT 08/28/2016 Ot 789.01 ABDOMINAL PAIN, RIGHT UPPER QUADRANT 08/28/2016 Ot V72.84 EXAM PRE- OPERATIVE NOS 08/28/2016 Ot 473.9 CHRONIC SINUSITIS NOS 08/28/2016 Ot 780.4 DIZZINESS AND GIDDINESS 08/28/2016 ZANDRA LOPEZ Ot 719.47 JOINT PAIN-ANKLE 08/28/2016 LOPEZ, ZANDRA R INSTRUMENTAL TEACHER Ot 782.2 LOCAL SUPRFICIAL SWELLNG 08/28/2016 TAMMY COPELAND L INSTRUMENTAL TEACHER Ot 571.8 CHRONIC LIVER DIS NEC 08/28/2016 LAM COPELANDA L INSTRUMENTAL TEACHER Ot 787.02 NAUSEA ALONE 08/28/2016 LAM COPELANDA L INSTRUMENTAL TEACHER Ot 787.91 DIARRHEA 08/28/2016 LAM COPELANDA L INSTRUMENTAL TEACHER Ot 789.01 ABDOMINAL PAIN, RIGHT UPPER QUADRANT 08/28/2016 MYLA NUÑEZ, CASSI Santos Ot V72.84 EXAM PRE-OPERATIVE NOS 08/28/2016 MYLA NUÑEZ, CASSI Santos Ot V72.84 EXAM PRE-OPERATIVE NOS 08/28/2016 MYLA NUÑEZ, CASSI Santos Ot V72.84 EXAM PRE-OPERATIVE NOS 08/28/2016 TAMMY COPELAND L INSTRUMENTAL TEACHER Ot 571.8 CHRONIC LIVER DIS NEC 08/28/2016 LAM COPELANDA L INSTRUMENTAL TEACHER Ot 789.09 ABDOMINAL PAIN, OTHER SPECIFIED SITE 08/28/2016 MIN TAMMY L INSTRUMENTAL TEACHER Ot 575.8 DIS OF GALLBLADDER NEC 08/28/2016 MYLA NUÑEZ, CASSI Santos Ot V72.84 EXAM PRE-OPERATIVE NOS 08/28/2016 MYLA NUÑEZ, CASSI Santos Ot 575.8 DIS OF GALLBLADDER NEC 08/28/2016 MYLA NUÑEZ, CASSI Santos Ot V72.63 PRE-PROCEDURAL LABORATORY EXAMINATION 08/28/2016 MYLA NUÑEZ, CASSI Santos Ot V74.8 SCREEN-BACTERIAL DIS NEC 08/28/2016 MINLAMA L INSTRUMENTAL TEACHER Ot 794.5 ABN THYROID FUNCT STUDY 08/28/2016 CARLEEArabellaLAMA L INSTRUMENTAL TEACHER Ot 719.41 JOINT PAIN-SHLDER 08/28/2016 Ot J40 BRONCHITIS, NOT SPECIFIED ACUTE OR CH 08/28/2016 Ot J44.1 CHRONIC OBSTRUCTIVE PULMONARY DISEASE W 08/28/2016 ELIGIO VANG DO Ot E06.3 AUTOIMMUNE THYROIDITIS 08/28/2016 MIN TAMMY L INSTRUMENTAL TEACHER Ot R10.12 LEFT UPPER QUADRANT PAIN 08/28/2016 ALMA BLANKENSHIP MD Ot G47.33 OBSTRUCTIVE SLEEP APNEA (ADULT) (PEDIATR 08/28/2016 ALMA BLANKENSHIP MD Ot I51.9 HEART DISEASE, UNSPECIFIED 08/28/2016 ALMA BLANKENSHIP MD Ot R06.02 SHORTNESS OF BREATH 08/28/2016 ALMA BLANKENSHIP MD Ot R07.9 CHEST PAIN, UNSPECIFIED 08/28/2016 ALMA BLANKENSHIP MD Ot G47.33 OBSTRUCTIVE SLEEP APNEA (ADULT) (PEDIATR 08/28/2016 ALMA BLANKENSHIP MD Ot I51.9 HEART DISEASE, UNSPECIFIED 08/28/2016 ALMA BLANKENSHIP MD Ot M19.90 UNSPECIFIED OSTEOARTHRITIS, UNSPECIFIED 08/28/2016 ALMA BLANKENSHIP MD, Ot M54.9 DORSALGIA, UNSPECIFIED 08/28/2016 ALMA BLANKENSHIP MD Ot R06.02 SHORTNESS OF BREATH 08/28/2016 ALMA BLANKENSHIP MD Ot R07.9 CHEST PAIN, UNSPECIFIED 08/28/2016 TAMMY COPELAND Ot M19.012 PRIMARY OSTEOARTHRITIS, LEFT SHOULDER 08/28/2016 TAMMY COPELAND INSTRUMENTAL TEACHER Ot M75.52 BURSITIS OF LEFT SHOULDER 08/28/2016 TAE RUTH MD Ot M25.512 PAIN IN LEFT SHOULDER 08/28/2016 TAE RUTH MD Ot Z98.890 OTHER SPECIFIED POSTPROCEDURAL STATES 09/09/2016 TAE RUTH MD Ot M25.512 PAIN IN LEFT SHOULDER 09/09/2016 TAE RUTH MD Ot Z98.890 OTHER SPECIFIED POSTPROCEDURAL STATES 09/15/2016 TAE RUTH MD Ot M25.512 PAIN IN LEFT SHOULDER 09/15/2016 TAE RUTH MD Ot Z98.890 OTHER SPECIFIED POSTPROCEDURAL STATES 01/20/2017 TAE RUTH MD Ot M17.11 UNILATERAL PRIMARY OSTEOARTHRITIS, RIGHT 01/20/2017 TAE RUTH MD Ot Z01.811 ENCOUNTER FOR PREPROCEDURAL RESPIRATORY 01/20/2017 TAE RUTH MD Ot Z01.812 ENCOUNTER FOR PREPROCEDURAL LABORATORY E 01/21/2017 TAE RUTH MD Ot M17.11 UNILATERAL PRIMARY OSTEOARTHRITIS, RIGHT 01/21/2017 TAE RUTH MD Ot Z01.811 ENCOUNTER FOR PREPROCEDURAL RESPIRATORY 01/21/2017 TAE RUTH MD, Ot Z01.812 ENCOUNTER FOR PREPROCEDURAL LABORATORY E 01/30/2017 TAE RUTH MD, Ot E03.9 HYPOTHYROIDISM, UNSPECIFIED 01/30/2017 TAE RUTH MD, Ot G47.33 OBSTRUCTIVE SLEEP APNEA (ADULT) (PEDIATR 01/30/2017 TAE RUTH MD, Ot G57.93 UNSPECIFIED MONONEUROPATHY OF BILATERAL 01/30/2017 TAE RUTH MD, Ot I10 ESSENTIAL (PRIMARY) HYPERTENSION 01/30/2017 TAE RUTH MD, Ot J45.909 UNSPECIFIED ASTHMA, UNCOMPLICATED 01/30/2017 TAE RUTH MD, Ot K21.9 GASTRO-ESOPHAGEAL REFLUX DISEASE WITHOUT 01/30/2017 TAE RUTH MD, Ot K44.9 DIAPHRAGMATIC HERNIA WITHOUT OBSTRUCTION 01/30/2017 TAE RUTH MD, Ot K76.0 FATTY (CHANGE OF) LIVER, NOT ELSEWHERE C 01/30/2017 TAE RUTH MD, Ot M17.0 BILATERAL PRIMARY OSTEOARTHRITIS OF KNEE 01/30/2017 TAE RUTH MD Ot M19.071 PRIMARY OSTEOARTHRITIS, RIGHT ANKLE AND 01/30/2017 TAE RUTH MD, Ot M19.072 PRIMARY OSTEOARTHRITIS, LEFT ANKLE AND F 01/30/2017 TAE RUTH MD, Ot M54.9 DORSALGIA, UNSPECIFIED 01/30/2017 TAE RUTH MD Ot R73.03 PREDIABETES 01/30/2017 TAE RUTH MD, Ot Z87.11 PERSONAL HISTORY OF PEPTIC ULCER DISEASE 01/30/2017 TAE RUTH MD Ot Z87.891 PERSONAL HISTORY OF NICOTINE DEPENDENCE 02/24/2017 TAE RUTH MD Ot Z47.1 AFTERCARE FOLLOWING JOINT REPLACEMENT MAHMOOD 02/24/2017 TAE RUTH MD Ot Z96.651 PRESENCE OF RIGHT ARTIFICIAL KNEE JOINT 03/17/2017 TAE RUTH MD Ot Z47.1 AFTERCARE FOLLOWING JOINT REPLACEMENT MAHMOOD 03/17/2017 TAE RUTH MD Ot Z96.651 PRESENCE OF RIGHT ARTIFICIAL KNEE JOINT 05/04/2017 TAE RUTH MD Ot Z47.1 AFTERCARE FOLLOWING JOINT REPLACEMENT MAHMOOD 05/04/2017 TAE RUTH MD Ot Z96.651 PRESENCE OF RIGHT ARTIFICIAL KNEE JOINT 05/05/2017 TAE RUTH MD Ot Z47.1 AFTERCARE FOLLOWING JOINT REPLACEMENT MAHMOOD 05/05/2017 TAE RUTH MD Ot Z96.651 PRESENCE OF RIGHT ARTIFICIAL KNEE JOINT 05/25/2017 TAE RUTH MD Ot Z01.818 ENCOUNTER FOR OTHER PREPROCEDURAL EXAMIN 06/09/2017 TAE RUTH MD Ot M17.12 UNILATERAL PRIMARY OSTEOARTHRITIS, LEFT 06/09/2017 TAE RUTH MD Ot R53.83 OTHER FATIGUE 06/09/2017 TAE RUTH MD Ot Z01.810 ENCOUNTER FOR PREPROCEDURAL CARDIOVASCUL 06/09/2017 TAE RUTH MD Ot Z01.812 ENCOUNTER FOR PREPROCEDURAL LABORATORY E 06/09/2017 TAE RUTH MD Ot Z11.2 ENCOUNTER FOR SCREENING FOR OTHER BACTER 06/10/2017 TAE RUTH MD Ot M17.12 UNILATERAL PRIMARY OSTEOARTHRITIS, LEFT 06/10/2017 TAE RUTH MD Ot R53.83 OTHER FATIGUE 06/10/2017 TAE RUTH MD Ot Z01.810 ENCOUNTER FOR PREPROCEDURAL CARDIOVASCUL 06/10/2017 TAE RUTH MD Ot Z01.812 ENCOUNTER FOR PREPROCEDURAL LABORATORY E 06/10/2017 TAE RUTH MD Ot Z11.2 ENCOUNTER FOR SCREENING FOR OTHER BACTER 06/15/2017 TAE RUTH MD Ot M17.12 UNILATERAL PRIMARY OSTEOARTHRITIS, LEFT 06/15/2017 TAE RUTH MD Ot R53.83 OTHER FATIGUE 06/15/2017 TAE RUTH MD Ot Z01.810 ENCOUNTER FOR PREPROCEDURAL CARDIOVASCUL 06/15/2017 TAE RUTH MD Ot Z01.812 ENCOUNTER FOR PREPROCEDURAL LABORATORY E 06/15/2017 TAE RUTH MD Ot Z11.2 ENCOUNTER FOR SCREENING FOR OTHER BACTER 06/16/2017 TAE RUTH MD Ot Z01.818 ENCOUNTER FOR OTHER PREPROCEDURAL EXAMIN 06/19/2017 TAE RUTH MD Ot E03.9 HYPOTHYROIDISM, UNSPECIFIED 06/19/2017 TAE RUTH MD Ot G25.81 RESTLESS LEGS SYNDROME 06/19/2017 TAE RUTH MD Ot G47.30 SLEEP APNEA, UNSPECIFIED 06/19/2017 TAE RUTH MD, Ot G62.9 POLYNEUROPATHY, UNSPECIFIED 06/19/2017 TAE RUTH MD Ot I10 ESSENTIAL (PRIMARY) HYPERTENSION 06/19/2017 TAE RUTH MD Ot J45.909 UNSPECIFIED ASTHMA, UNCOMPLICATED 06/19/2017 TAE RUTH MD Ot K21.9 GASTRO-ESOPHAGEAL REFLUX DISEASE WITHOUT 06/19/2017 TAE RUTH MD, Ot K44.9 DIAPHRAGMATIC HERNIA WITHOUT OBSTRUCTION 06/19/2017 TAE RUTH MD, Ot K76.0 FATTY (CHANGE OF) LIVER, NOT ELSEWHERE C 06/19/2017 TAE RUTH MD Ot M17.12 UNILATERAL PRIMARY OSTEOARTHRITIS, LEFT 06/19/2017 TAE RUTH MD Ot M19.072 PRIMARY OSTEOARTHRITIS, LEFT ANKLE AND F 06/19/2017 TAE RUTH MD, Ot M54.9 DORSALGIA, UNSPECIFIED 06/19/2017 TAE RUTH MD Ot R73.03 PREDIABETES 06/19/2017 TAE RUTH MD Ot Z87.11 PERSONAL HISTORY OF PEPTIC ULCER DISEASE 06/19/2017 TAE RUTH MD Ot Z87.891 PERSONAL HISTORY OF NICOTINE DEPENDENCE 07/19/2017 TAE RUTH MD Ot Z47.1 AFTERCARE FOLLOWING JOINT REPLACEMENT MAHMOOD 07/19/2017 TAE RUTH MD Ot Z96.652 PRESENCE OF LEFT ARTIFICIAL KNEE JOINT 08/10/2017 TAE RUTH MD Ot Z47.1 AFTERCARE FOLLOWING JOINT REPLACEMENT MAHMOOD 08/10/2017 TAE RUTH MD Ot Z96.652 PRESENCE OF LEFT ARTIFICIAL KNEE JOINT 08/20/2017 TAE RUTH MD Ot Z47.1 AFTERCARE FOLLOWING JOINT REPLACEMENT MAHMOOD 08/20/2017 TAE RUTH MD Ot Z96.652 PRESENCE OF LEFT ARTIFICIAL KNEE JOINT 08/25/2017 ZANDRA LOPEZ Ot 719.47 JOINT PAIN-ANKLE 08/25/2017 ZANDRA LOPEZ Ot 782.2 LOCAL SUPRFICIAL SWELLNG 08/25/2017 MADL, TAMMY L INSTRUMENTAL TEACHER Ot 571.8 CHRONIC LIVER DIS NEC 08/25/2017 MADL, TAMMY L INSTRUMENTAL TEACHER Ot 787.02 NAUSEA ALONE 08/25/2017 MADL, TAMMY L INSTRUMENTAL TEACHER Ot 787.91 DIARRHEA 08/25/2017 MADL, TAMMY L INSTRUMENTAL TEACHER Ot 789.01 ABDOMINAL PAIN, RIGHT UPPER QUADRANT 08/25/2017 MYLA NUÑEZ, CASSI Santos Ot V72.84 EXAM PRE-OPERATIVE NOS 08/25/2017 MYLA NUÑEZ, CASSI Santos Ot V72.84 EXAM PRE-OPERATIVE NOS 08/25/2017 MYLA NUÑEZ, CASSI Santos Ot V72.84 EXAM PRE-OPERATIVE NOS 08/25/2017 MADL, TAMMY L INSTRUMENTAL TEACHER Ot 571.8 CHRONIC LIVER DIS NEC 08/25/2017 MADL, TAMMY L INSTRUMENTAL TEACHER Ot 789.09 ABDOMINAL PAIN, OTHER SPECIFIED SITE 08/25/2017 MIN, TAMMY L INSTRUMENTAL TEACHER Ot 575.8 DIS OF GALLBLADDER NEC 08/25/2017 MYLA NUÑEZ, CASSI Santos Ot V72.84 EXAM PRE-OPERATIVE NOS 08/25/2017 MYLA NUÑEZ, CASSI Santos Ot 575.8 DIS OF GALLBLADDER NEC 08/25/2017 MYLA NUÑEZ, CASSI Santos Ot V72.63 PRE-PROCEDURAL LABORATORY EXAMINATION 08/25/2017 MYLA NUÑEZ, CASSI Santos Ot V74.8 SCREEN-BACTERIAL DIS NEC 08/25/2017 MIN, TAMMY L INSTRUMENTAL TEACHER Ot 794.5 ABN THYROID FUNCT STUDY 08/25/2017 CARLEEArabellaLAMA L INSTRUMENTAL TEACHER Ot 719.41 JOINT PAIN-SHLDER 08/25/2017 Ot J40 BRONCHITIS, NOT SPECIFIED ACUTE OR CH 08/25/2017 Ot J44.1 CHRONIC OBSTRUCTIVE PULMONARY DISEASE W 08/25/2017 ELIGIO VANG DO Ot E06.3 AUTOIMMUNE THYROIDITIS 08/25/2017 MIN TAMMY L INSTRUMENTAL TEACHER Ot R10.12 LEFT UPPER QUADRANT PAIN 08/25/2017 ALMA BLANKENSHIP MD Ot G47.33 OBSTRUCTIVE SLEEP APNEA (ADULT) (PEDIATR 08/25/2017 ALMA BLANKENSHIP MD Ot I51.9 HEART DISEASE, UNSPECIFIED 08/25/2017 ALMA BLANKENSHIP MD Ot R06.02 SHORTNESS OF BREATH 08/25/2017 KRZYSZTOF NUÑEZ, ALMA Polanco Ot R07.9 CHEST PAIN, UNSPECIFIED 08/25/2017 ALMA BLANKENSHIP MD Ot G47.33 OBSTRUCTIVE SLEEP APNEA (ADULT) (PEDIATR 08/25/2017 KRZYSZTOF NUÑEZ, ALMA Polanco Ot I51.9 HEART DISEASE, UNSPECIFIED 08/25/2017 ALMA BLANKENSHIP MD Ot M19.90 UNSPECIFIED OSTEOARTHRITIS, UNSPECIFIED 08/25/2017 ALMA BLANKENSHIP MD Ot M54.9 DORSALGIA, UNSPECIFIED 08/25/2017 ALMA BLANKENSHIP MD Ot R06.02 SHORTNESS OF BREATH 08/25/2017 ALMA BLANKENSHIP MD Ot R07.9 CHEST PAIN, UNSPECIFIED 08/25/2017 MADL, TAMMY L INSTRUMENTAL TEACHER Ot M19.012 PRIMARY OSTEOARTHRITIS, LEFT SHOULDER 08/25/2017 MADL, TAMMY L INSTRUMENTAL TEACHER Ot M75.52 BURSITIS OF LEFT SHOULDER 08/25/2017 FARAZ NUÑEZ, TAE El Ot Z01.818 ENCOUNTER FOR OTHER PREPROCEDURAL EXAMIN 08/30/2017 ELIGIO VANG DO Ot E06.3 AUTOIMMUNE THYROIDITIS 09/15/2017 ELIGIO VANG DO Ot E06.3 AUTOIMMUNE THYROIDITIS 12/03/2017 ZANDRA LOPEZ INSTRUMENTAL TEACHER Ot 719.47 JOINT PAIN-ANKLE 12/03/2017 ZANDRA LOPEZ INSTRUMENTAL TEACHER Ot 782.2 LOCAL SUPRFICIAL SWELLNG 12/03/2017 MIN TAMMY L INSTRUMENTAL TEACHER Ot 571.8 CHRONIC LIVER DIS NEC 12/03/2017 MADL, TAMMY L INSTRUMENTAL TEACHER Ot 787.02 NAUSEA ALONE 12/03/2017 MADL, TAMMY L INSTRUMENTAL TEACHER Ot 787.91 DIARRHEA 12/03/2017 MADArabella, TAMMY L INSTRUMENTAL TEACHER Ot 789.01 ABDOMINAL PAIN, RIGHT UPPER QUADRANT 12/03/2017 MYLA NUÑEZ, CASSI Santos Ot V72.84 EXAM PRE-OPERATIVE NOS 12/03/2017 MYLA NUÑEZ, CASSI Santos Ot V72.84 EXAM PRE-OPERATIVE NOS 12/03/2017 MYLA NUÑEZ, CASSI Santos Ot V72.84 EXAM PRE-OPERATIVE NOS 12/03/2017 MELLY COPELANDWNYA L INSTRUMENTAL TEACHER Ot 571.8 CHRONIC LIVER DIS NEC 12/03/2017 TAMMY COPELAND L INSTRUMENTAL TEACHER Ot 789.09 ABDOMINAL PAIN, OTHER SPECIFIED SITE 12/03/2017 LAM COPELANDA L INSTRUMENTAL TEACHER Ot 575.8 DIS OF GALLBLADDER NEC 12/03/2017 MYLA NUÑEZ, CASSI Santos Ot V72.84 EXAM PRE-OPERATIVE NOS 12/03/2017 MYLA NUÑEZ, CASSI Santos Ot 575.8 DIS OF GALLBLADDER NEC 12/03/2017 MYLA NUÑEZ, CASSI Santos Ot V72.63 PRE-PROCEDURAL LABORATORY EXAMINATION 12/03/2017 MYLA NUÑEZ, CASSI Santos Ot V74.8 SCREEN-BACTERIAL DIS NEC 12/03/2017 MIN, TAMMY L INSTRUMENTAL TEACHER Ot 794.5 ABN THYROID FUNCT STUDY 12/03/2017 LAM COPELANDA L INSTRUMENTAL TEACHER Ot 719.41 JOINT PAIN-SHLDER 12/03/2017 Ot J40 BRONCHITIS, NOT SPECIFIED ACUTE OR CH 12/03/2017 Ot J44.1 CHRONIC OBSTRUCTIVE PULMONARY DISEASE W 12/03/2017 ELIGIO VANG DO Ot E06.3 AUTOIMMUNE THYROIDITIS 12/03/2017 TAMMY COPELAND INSTRUMENTAL TEACHER Ot R10.12 LEFT UPPER QUADRANT PAIN 12/03/2017 ALMA BLANKENSHIP MD Ot G47.33 OBSTRUCTIVE SLEEP APNEA (ADULT) (PEDIATR 12/03/2017 ALMA BLANKENSHIP MD Ot I51.9 HEART DISEASE, UNSPECIFIED 12/03/2017 ALMA BLANKENSHIP MD Ot R06.02 SHORTNESS OF BREATH 12/03/2017 ALMA BLANKENSHIP MD Ot R07.9 CHEST PAIN, UNSPECIFIED 12/03/2017 ALMA BLANKENSHIP MD Ot G47.33 OBSTRUCTIVE SLEEP APNEA (ADULT) (PEDIATR 12/03/2017 ALMA BLANKENSHIP MD Ot I51.9 HEART DISEASE, UNSPECIFIED 12/03/2017 ALMA BLANKENSHIP MD Ot M19.90 UNSPECIFIED OSTEOARTHRITIS, UNSPECIFIED 12/03/2017 ALMA BLANKENSHIP MD Ot M54.9 DORSALGIA, UNSPECIFIED 12/03/2017 ALMA BLANKENSHIP MD Ot R06.02 SHORTNESS OF BREATH 12/03/2017 ALMA BLANKENSHIP MD Ot R07.9 CHEST PAIN, UNSPECIFIED 12/03/2017 MADL, TAMMY L INSTRUMENTAL TEACHER Ot M19.012 PRIMARY OSTEOARTHRITIS, LEFT SHOULDER 12/03/2017 MADL, TAMMY L INSTRUMENTAL TEACHER Ot M75.52 BURSITIS OF LEFT SHOULDER 12/03/2017 FARAZ NUÑEZ, TAE El Ot Z01.818 ENCOUNTER FOR OTHER PREPROCEDURAL EXAMIN 12/03/2017 TAJ HERNANDEZ ELIGIO Arabella Ot E06.3 AUTOIMMUNE THYROIDITIS 12/06/2017 FATIMA DO, DENISE K Ot J44.1 CHRONIC OBSTRUCTIVE PULMONARY DISEASE W 12/07/2017 FATIMA DO, DENISE K Ot J44.1 CHRONIC OBSTRUCTIVE PULMONARY DISEASE W 12/07/2017 FATIMA DO, DENISE K Ot J44.1 CHRONIC OBSTRUCTIVE PULMONARY DISEASE W 12/29/2017 FATIMA DO, DENISE K Ot J44.1 CHRONIC OBSTRUCTIVE PULMONARY DISEASE W 01/05/2018 ZANDRA LOPEZ INSTRUMENTAL TEACHER Ot 719.47 JOINT PAIN-ANKLE 01/05/2018 ZANDRA LOPEZ INSTRUMENTAL TEACHER Ot 782.2 LOCAL SUPRFICIAL SWELLNG 01/05/2018 MADL, TAMMY L INSTRUMENTAL TEACHER Ot 571.8 CHRONIC LIVER DIS NEC 01/05/2018 MADL, TAMMY L INSTRUMENTAL TEACHER Ot 787.02 NAUSEA ALONE 01/05/2018 MADL, TAMMY L INSTRUMENTAL TEACHER Ot 787.91 DIARRHEA 01/05/2018 MADL, TAMMY L INSTRUMENTAL TEACHER Ot 789.01 ABDOMINAL PAIN, RIGHT UPPER QUADRANT 01/05/2018 MYLA NUÑEZ, CASSI Santos Ot V72.84 EXAM PRE-OPERATIVE NOS 01/05/2018 CASSI LANZA MD Ot V72.84 EXAM PRE-OPERATIVE NOS 01/05/2018 CASSI LANZA MD Ot V72.84 EXAM PRE-OPERATIVE NOS 01/05/2018 MADL, TAMMY L INSTRUMENTAL TEACHER Ot 571.8 CHRONIC LIVER DIS NEC 01/05/2018 MADL, TAMMY L INSTRUMENTAL TEACHER Ot 789.09 ABDOMINAL PAIN, OTHER SPECIFIED SITE 01/05/2018 MADL, TAMMY L INSTRUMENTAL TEACHER Ot 575.8 DIS OF GALLBLADDER NEC 01/05/2018 CASSI LANZA MD Ot V72.84 EXAM PRE-OPERATIVE NOS 01/05/2018 CASSI LANZA MD Ot 575.8 DIS OF GALLBLADDER NEC 01/05/2018 MYLA NUÑEZ, CASSI Santos Ot V72.63 PRE-PROCEDURAL LABORATORY EXAMINATION 01/05/2018 MYLA NUÑEZ, CASSI Santos Ot V74.8 SCREEN-BACTERIAL DIS NEC 01/05/2018 LAM COPELANDA L INSTRUMENTAL TEACHER Ot 794.5 ABN THYROID FUNCT STUDY 01/05/2018 MELLY COPELANDWNYA L INSTRUMENTAL TEACHER Ot 719.41 JOINT PAIN-SHLDER 01/05/2018 Ot J40 BRONCHITIS, NOT SPECIFIED ACUTE OR CH 01/05/2018 Ot J44.1 CHRONIC OBSTRUCTIVE PULMONARY DISEASE W 01/05/2018 ELIGIO VANG DO Ot E06.3 AUTOIMMUNE THYROIDITIS 01/05/2018 TAMMY COPELAND INSTRUMENTAL TEACHER Ot R10.12 LEFT UPPER QUADRANT PAIN 01/05/2018 ALMA BLANKENSHIP MD Ot G47.33 OBSTRUCTIVE SLEEP APNEA (ADULT) (PEDIATR 01/05/2018 ALMA BLANKENSHIP MD Ot I51.9 HEART DISEASE, UNSPECIFIED 01/05/2018 ALMA BLANKENSHIP MD Ot R06.02 SHORTNESS OF BREATH 01/05/2018 ALMA BLANKENSHIP MD Ot R07.9 CHEST PAIN, UNSPECIFIED 01/05/2018 ALMA BLANKENSHIP MD Ot G47.33 OBSTRUCTIVE SLEEP APNEA (ADULT) (PEDIATR 01/05/2018 ALMA BLANKENSHIP MD Ot I51.9 HEART DISEASE, UNSPECIFIED 01/05/2018 ALMA BLANKENSHIP MD Ot M19.90 UNSPECIFIED OSTEOARTHRITIS, UNSPECIFIED 01/05/2018 ALMA BLANKENSHIP MD Ot M54.9 DORSALGIA, UNSPECIFIED 01/05/2018 ALMA BLANKENSHIP MD Ot R06.02 SHORTNESS OF BREATH 01/05/2018 ALMA BLANKENSHIP MD Ot R07.9 CHEST PAIN, UNSPECIFIED 01/05/2018 LAM COPELANDA L INSTRUMENTAL TEACHER Ot M19.012 PRIMARY OSTEOARTHRITIS, LEFT SHOULDER 01/05/2018 LAM COPELANDA L INSTRUMENTAL TEACHER Ot M75.52 BURSITIS OF LEFT SHOULDER 01/05/2018 FARAZ NUÑEZ, TAE El Ot Z01.818 ENCOUNTER FOR OTHER PREPROCEDURAL EXAMIN 01/05/2018 ELIGIO VANG DO Ot E06.3 AUTOIMMUNE THYROIDITIS 01/05/2018 AKUA HERNANDEZ DENISE Kyaw Ot J44.1 CHRONIC OBSTRUCTIVE PULMONARY DISEASE W 02/08/2018 ZELALEM ISSA APRN Ot G47.33 OBSTRUCTIVE SLEEP APNEA (ADULT) (PEDIATR 02/08/2018 ZELALEM ISSA APRN Ot J44.9 CHRONIC OBSTRUCTIVE PULMONARY DISEASE, U 02/08/2018 ZELALEM ISSA APRN Ot J45.901 UNSPECIFIED ASTHMA WITH (ACUTE) EXACERBA 02/08/2018 ZELALEM ISSA APRN Ot R06.02 SHORTNESS OF BREATH Procedures Code Description [place] [address] ROUTINE VENIPUNCTURE 02/09/2012 13010 XRAY CHEST 2 VIEW 02/09/2012 60688 TSH 02/10/2012 [id number] COMPLETE BLOOD COUNT NO DIFF (CBC Result) 02/10/2012 69111 DIFFERENTIAL WBC COUNT (CBC DIFF RESULT) 02/10/2012 85248 IGE 02/10/2012 5044461 BERMUDA GRASS 02/12/2012 5500884 DOG DANDER 02/12/2012 6236889 CAT DANDER 02/12/2012 3872286 [place]AG[place] COMMON-"SHORT RAGWEED" 02/12/2012 7990888 [place] WHITE 02/12/2012 0606315 DUST MITE (DERM.FARINE D2 ) 02/12/2012 0218634 MARSHELDER ROUGH 02/12/2012 5783297 [place] BLUE GRASS 02/12/2012 1984502 IZA GRASS IGE 02/12/2012 2655903 [place] TREE ESTONIAN 02/12/2012 9384306 CLADOSPORIUM MOLD 02/12/2012 4017366 ALTERNARIA TENUIS 02/12/2012 5039999 PECAN TREE 02/12/2012 33368 CBC W/MANUAL DIF (order) 02/18/2012 98495 RAST ALLERGY PANEL 02/18/2012 15362 SLEEP STUDY 02/18/[address] HEAD/BRAIN W/O DYE 02/24/[address] SINUS W/O CONTRAST 02/24/2012 14747 OXIMETRY 03/09/2012 98320 ROUTINE VENIPUNCTURE 06/10/2012 02967 A1C (IN-HOUSE) 06/10/2012 19717 BMP 06/10/2012 2942763 GFR CALC (RESULT ONLY) 06/10/2012 67080 VIT B 12 06/10/2012 42680 FOLATE 06/10/2012 68761 TSH 06/10/2012 Opal Vasquez 06/14/2012 Allergy, Adiel Mims 08/30/2012 Podiatry Opal Reese 10/28/2012 38360 A1C (IN-HOUSE) 11/10/2012 G0008 FLU ADMINISTRATION ( MEDICARE ONLY) 11/30/2012 51294 ROUTINE VENIPUNCTURE 12/12/2012 02897 US GALLBLADDER ULTRASOUND 12/12/2012 65751 CBC 12/12/2012 85751 ROUTINE VENIPUNCTURE 12/30/2012 10379 CMP 12/30/2012 30762 LIPID PANEL 12/30/2012 5748415 GFR CALC (RESULT ONLY) 12/30/2012 81773 LIPASE 12/30/2012 82759 HEPATITIS PROFILE 12/30/2012 31391 INJ TENDON SHEATH/LIGAMENT 01/06/2013 09158 STRAPPING OF ANKLE AND/OR FT 01/06/2013 S CASSI LANZA 01/16/2013 81404 ROUTINE VENIPUNCTURE 05/10/2013 72245 A1C (IN-HOUSE) 05/10/2013 64369 CMP 05/10/2013 7403249 GFR CALC (RESULT ONLY) 05/10/2013 48190 TSH 05/10/2013 31303 OXIMETRY 05/29/2013 62159 OXIMETRY 06/15/2013 77834 ROUTINE VENIPUNCTURE 08/30/2013 13158 CBC 08/30/2013 10554 CMP 08/30/2013 66872 LIPID PANEL 08/30/2013 2214635 GFR CALC (RESULT ONLY) 08/30/2013 68799 VIT B 12 08/30/2013 THYANA THYROID ANALYZER 08/30/2013 92786 VITAMIN D 25-HYDROXY (D2,D3 , TOTAL) 08/30/2013 27217 THERAPUTIC INJ SQ/IM 10/02/2013 J0696 ROCEPHIN INJ 1 g 10/02/2013 46028 ROUTINE VENIPUNCTURE 11/16/2013 5631771 GFR CALC (RESULT ONLY) 11/16/2013 14297 BMP 11/16/2013 77566 ROUTINE VENIPUNCTURE 11/30/2013 72362 CMP 11/30/2013 74567 ROUTINE VENIPUNCTURE 02/27/2014 98448 UA W/ CULTURE IF INDICATED 02/27/2014 34523 CMP 02/27/2014 0179718 GFR CALC (RESULT ONLY) 02/27/2014 19711 A1C (RML) 02/27/2014 87550 PSA TOTAL 02/27/2014 51597 TSH 02/27/2014 95681 ROUTINE VENIPUNCTURE 03/12/2014 99894 THERAPUTIC INJ SQ/IM 03/12/2014 J1885 TORADOL INJ 03/12/2014 37405 URIC ACID 03/12/2014 26347 CRP 03/12/2014 46008 RA FACTOR 03/12/2014 ANAANA GARTH ANALYZER (SCREEN) 03/13/2014 10000 XRAY HIP RIGHT UNILATERAL MIN 2 VIEWS 03/14/2014 25701 ROUTINE VENIPUNCTURE 04/25/2014 ORTHOPEDI BELTRAN CANTU 04/25/2014 7499386 GFR CALC (RESULT ONLY) 04/25/2014 71221 CMP 04/25/2014 28902 US ABDOMINAL ULTRASOUND, COMPLETE 06/12/2014 19679 HIDA SCAN 06/12/2014 59652 H PYLORI (IN-HOUSE) 06/12/2014 CASSI MONTIEL 06/27/2014 [id number] REPLACE OF R KNEE JT WITH SYNTH SUB, ANN 01/27/2017 [id number] INTRODUCE ANESTHETIC IN PERIPH NRV, PLEX 01/27/2017 [id number] REPLACE OF L KNEE JT WITH SYNTH SUB, ANN 06/16/2017 Results Test Result Range THYROID STIMULATING HORMONE - 11/21/15 10:36 THYROID STIMULATING HORMONE 14.21 u[iU]/mL 0.35-4.94 Stool Culture - 02/12/16 13:54 Stool Culture Note C difficile Toxin Gene ALESHA - 02/12/16 13:54 C difficile Toxin Gene ALESHA Negative Negative CBC With Differential/Platelet - 02/20/16 13:39 WBC 8.4 x10E3/uL 3.4-10.8 RBC 4.21 x10E6/uL 4.14-5.80 Hemoglobin 13.2 g/dL 12.6-17.7 Hematocrit 37.6 % 37.5-51.0 MCV 89 fL 79-97 MCH 31.4 pg 26.6-33.0 MCHC 35.1 g/dL 31.5-35.7 RDW 13.9 % 12.3-15.4 Platelets 340 x10E3/uL 150-379 Neutrophils 71 % Lymphs 15 % Monocytes 9 % Eos 3 % Basos 1 % Neutrophils (Absolute) 6.1 x10E3/uL 1.4-7.0 Lymphs (Absolute) 1.3 x10E3/uL 0.7-3.1 Monocytes(Absolute) 0.8 x10E3/uL 0.1-0.9 Eos (Absolute) 0.2 x10E3/uL 0.0-0.4 Baso (Absolute) 0.0 x10E3/uL 0.0-0.2 Immature Granulocytes 1 % Immature Grans (Abs) 0.0 x10E3/uL 0.0-0.1 Comp. Metabolic Panel (14) - 02/20/16 13:39 Glucose, Serum 106 mg/dL 65-99 BUN 22 mg/dL 8-27 Creatinine, Serum 1.15 mg/dL 0.76-1.27 eGFR If NonAfricn Am 66 mL/min/1.73 >59 eGFR If Africn Am 76 mL/min/1.73 >59 BUN/Creatinine Ratio 19 10-22 Sodium, Serum 142 mmol/L 136-144 Potassium, Serum 3.2 mmol/L 3.5-5.2 Chloride, Serum 96 mmol/L 97-106 Carbon Dioxide, Total 31 mmol/L 18-29 Calcium, Serum 9.4 mg/dL 8.6-10.2 Protein, Total, Serum 7.4 g/dL 6.0-8.5 Albumin, Serum 4.4 g/dL 3.6-4.8 Globulin, Total 3.0 g/dL 1.5-4.5 A/G Ratio 1.5 1.1-2.5 Bilirubin, Total 0.3 mg/dL 0.0-1.2 Alkaline Phosphatase, S 92 IU/L 39-117 AST (SGOT) 48 IU/L 0-40 ALT (SGPT) 45 IU/L 0-44 Lipid Panel - 02/20/16 13:39 Cholesterol, Total 137 mg/dL 100-199 Triglycerides 132 mg/dL 0-149 HDL Cholesterol 47 mg/dL >39 VLDL Cholesterol [place] 26 mg/dL 5-40 LDL Cholesterol Calc 64 mg/dL 0-99 TSH - 02/20/16 13:39 TSH 12.000 uIU/mL 0.450-4.500 Amylase, Serum - 02/20/16 13:39 Amylase, Serum 100 U/L 31-124 Lipase, Serum - 02/20/16 13:39 Lipase, Serum 24 U/L 0-59 Magnesium, Serum - 02/20/16 13:39 Magnesium, Serum 2.1 mg/dL 1.6-2.3 Complete urinalysis with reflex to culture - 04/22/16 07:14 Urine color determination YELLOW NRG Urine clarity determination SLIGHTLY CLOUDY NRG Urine pH measurement by test strip 8 5-9 Specific gravity of urine by test strip 1.010 1.016- 1.022 Urine protein assay by test strip, semi-quantitative [...] 07:25 Blood leukocytes automated count (number/volume) 7.0 10*3/uL 4.3-11.0 Blood erythrocytes automated count (number/volume) 4.17 10*6/uL 4.35-5.85 Venous blood hemoglobin measurement (mass/volume) 13.4 [...] Automated blood platelet mean volume measurement 10.2 [foz_us] 7.4-10.4 PT panel in platelet poor plasma [...] Serum or plasma sodium measurement (moles/volume) 141 mmol/L 135-145 Serum or plasma potassium measurement (moles/volume) 3.9 mmol/L 3.6-5.0 Serum or plasma chloride measurement (moles/volume) 103 mmol/L 98-107 Carbon dioxide 28 mmol/L 21-32 Serum or plasma anion gap determination (moles/volume) 10 mmol/L 5-14 Serum or plasma urea nitrogen measurement (mass/volume) 29 mg/dL 7-18 Serum or plasma creatinine measurement (mass/volume) 1.02 mg/dL 0.60-1.30 Serum or plasma urea nitrogen/creatinine mass [...] Serum or plasma triglyceride measurement (mass/volume) 89 mg/dL <150 Serum or plasma cholesterol measurement (mass/volume) 155 mg/dL < 200 Serum or plasma cholesterol in HDL measurement (mass/volume) 49 mg/ dL 40-60 Cholesterol in LDL [mass/volume] in serum or plasma by direct assay 93 mg/dL 1-129 Serum or plasma cholesterol in VLDL measurement (mass/volume) 18 mg/ dL 5-40 Methicillin resistant Staphylococcus aureus (MRSA) screening culture - 07:28 Methicillin resistant Staphylococcus aureus (MRSA) screening culture NEG NRG Methicillin resistant Staphylococcus aureus (MRSA) screening culture - 10:28 Methicillin resistant Staphylococcus aureus (MRSA) screening culture NEG NRG PT panel in platelet poor plasma by coagulation assay - 01/20/17 09:41 Prothrombin time (PT) in platelet poor plasma by coagulation assay 12.7 s 12.2-14.7 INR in platelet poor plasma or blood by coagulation assay 0.9 0.8-1.4 Complete blood count (CBC) with automated white blood cell (WBC) differential - 01/20/17 09:41 Blood leukocytes automated count (number/volume) 5.2 10*3/uL 4.3-11.0 Blood erythrocytes automated count (number/volume) 3.92 10*6/uL 4.35-5.85 Venous blood hemoglobin measurement (mass/volume) 12.8 g/dL 13.3-17.7 Blood hematocrit (volume fraction) 37 % 40-54 Automated erythrocyte mean corpuscular volume 95 [foz_us] 80-99 Automated erythrocyte mean corpuscular hemoglobin (mass per erythrocyte) 33 pg 25-34 Automated erythrocyte mean corpuscular hemoglobin concentration measurement ( mass/volume) 34 g/dL 32-36 Automated erythrocyte distribution width ratio 12.5 % 10.0-14.5 Automated blood platelet count (count/volume) 267 10*3/uL 130-400 Automated blood platelet mean volume measurement 10.5 [foz_us] 7.4-10.4 Automated blood neutrophils/100 leukocytes 59 % 42-75 Automated blood lymphocytes/100 leukocytes 20 % 12-44 Blood monocytes/100 leukocytes 11 % 0-12 Automated blood eosinophils/100 leukocytes 9 % 0-10 Automated blood basophils/100 leukocytes 1 % 0-10 Blood neutrophils automated count (number/volume) 3.1 10*3 1.8-7.8 Blood lymphocytes automated count (number/volume) 1.0 10*3 1.0-4.0 Blood monocytes automated count (number/volume) 0.6 10*3 0.0-1.0 Automated eosinophil count 0.5 10*3/uL 0.0-0.3 Automated blood basophil count (count/volume) 0.1 10*3/uL 0.0-0.1 Comprehensive metabolic panel - 01/20/17 09:41 Serum or plasma sodium measurement (moles/volume) 139 mmol/L 135-145 Serum or plasma potassium measurement (moles/volume) 3.7 mmol/L 3.6-5.0 Serum or plasma chloride measurement (moles/volume) 106 mmol/L 98-107 Carbon dioxide 23 mmol/L 21-32 Serum or plasma anion gap determination (moles/volume) 10 mmol/L 5-14 Serum or plasma urea nitrogen measurement (mass/volume) 27 mg/dL 7-18 Serum or plasma creatinine measurement (mass/volume) 0.99 mg/dL 0.60-1.30 Serum or plasma urea nitrogen/creatinine mass ratio 27 NRG Serum or plasma creatinine measurement with calculation of estimated glomerular filtration rate > NRG Serum or plasma glucose measurement (mass/volume) 106 mg/dL 70-105 Serum or plasma calcium measurement (mass/volume) 9.2 mg/dL 8.5-10.1 Serum or plasma total bilirubin measurement (mass/volume) 0.3 mg/dL 0.1-1.0 Serum or plasma alkaline phosphatase measurement (enzymatic activity/volume) 90 U/L 40-136 Serum or plasma aspartate aminotransferase measurement (enzymatic activity/ volume) 20 U/L 5-34 Serum or plasma alanine aminotransferase measurement (enzymatic activity/volume ) 20 U/L 0-55 Serum or plasma protein measurement (mass/volume) 7.3 g/dL 6.4-8.2 Serum or plasma albumin measurement (mass/volume) 3.9 g/dL 3.2-4.5 Complete urinalysis with reflex to culture - 01/20/17 09:41 Urine color determination YELLOW NRG Urine clarity determination CLEAR NRG Urine pH measurement by test strip 6.5 5-9 Specific gravity of urine by test strip 1.015 1.016- 1.022 Urine protein assay by test strip, semi-quantitative [...] NORMAL Urine leukocyte esterase detection by dipstick 1+ NEGATIVE Automated urine sediment erythrocyte count by microscopy (number/high power field) RARE NRG Automated urine sediment leukocyte count by microscopy (number/high power field ) RARE NRG Bacteria detection in urine sediment by light microscopy NEGATIVE NRG Squamous epithelial cells detection in urine sediment by light microscopy 2-5 NRG Crystals detection in urine sediment by light microscopy NONE NRG Casts detection in urine sediment by light microscopy NONE NRG Mucus detection in urine sediment by light microscopy NEGATIVE NRG Complete urinalysis with reflex to culture NO NRG Erythrocyte sedimentation rate by westergren method - 01/20/17 09:41 Erythrocyte sedimentation rate by westergren method 37 mm 0-30 Blood type T Indirect antibody screen panel - 01/20/17 09:41 ABO+Rh group OP NRG Blood group antibody screen NEGATIVE NRG Methicillin resistant Staphylococcus aureus (MRSA) screening culture - 09:41 Methicillin resistant Staphylococcus aureus (MRSA) screening culture NEG NRG Blood type T Indirect antibody screen panel - 01/27/17 06:30 ABO+Rh group OP NRG Transfusion band number [id number] NRG Blood group antibody screen NEGATIVE NRG Whole blood hemoglobin and hematocrit panel - 01/28/17 05:53 Venous blood hemoglobin measurement (mass/volume) 10.4 g/dL 13.3-17.7 Blood hematocrit (volume fraction) 31 % 40-54 Whole blood hemoglobin and hematocrit panel - 01/29/17 06:00 Venous blood hemoglobin measurement (mass/volume) 10.2 g/dL 13.3-17.7 Blood hematocrit (volume fraction) 30 % 40-54 Hemoglobin A1c - 01/29/17 06:00 Hemoglobin A1c 6.4 % 4.5-6.2 THYROID STIMULATING HORMONE - 01/29/17 06:00 THYROID STIMULATING HORMONE 3.07 u[iU]/mL 0.35-4.94 Serum or plasma thyroxine (T4) free measurement (mass/volume) - 01/29/17 06:00 Serum or plasma thyroxine (T4) free measurement (mass/volume) 1.26 ng/dL 0.70-1.48 Whole blood hemoglobin and hematocrit panel - 01/30/17 04:46 Venous blood hemoglobin measurement (mass/volume) 11.0 g/dL 13.3-17.7 Blood hematocrit (volume fraction) 32 % 40-54 Comprehensive metabolic panel - 01/30/17 04:46 Serum or plasma sodium measurement (moles/volume) 138 mmol/L 135-145 Serum or plasma potassium measurement (moles/volume) 3.2 mmol/L 3.6-5.0 Serum or plasma chloride measurement (moles/volume) 100 mmol/L 98-107 Carbon dioxide 26 mmol/L 21-32 Serum or plasma anion gap determination (moles/volume) 12 mmol/L 5-14 Serum or plasma urea nitrogen measurement (mass/volume) 12 mg/dL 7-18 Serum or plasma creatinine measurement (mass/volume) 0.83 mg/dL 0.60-1.30 Serum or plasma urea nitrogen/creatinine mass ratio 14 NRG Serum or plasma creatinine measurement with calculation of estimated glomerular filtration rate > NRG Serum or plasma glucose measurement (mass/volume) 117 mg/dL 70-105 Serum or plasma calcium measurement (mass/volume) 9.2 mg/dL 8.5-10.1 Serum or plasma total bilirubin measurement (mass/volume) 0.9 mg/dL 0.1-1.0 Serum or plasma alkaline phosphatase measurement (enzymatic activity/volume) 75 U/L 40-136 Serum or plasma aspartate aminotransferase measurement (enzymatic activity/ volume) 31 U/L 5-34 Serum or plasma alanine aminotransferase measurement (enzymatic activity/volume ) 34 U/L 0-55 Serum or plasma protein measurement (mass/volume) 7.0 g/dL 6.4-8.2 Serum or plasma albumin measurement (mass/volume) 3.6 g/dL 3.2-4.5 Methicillin resistant Staphylococcus aureus (MRSA) screening culture - 14:05 Methicillin resistant Staphylococcus aureus (MRSA) screening culture NEG NRG Complete blood count (CBC) with automated white blood cell (WBC) differential - 06/09/17 14:15 Blood leukocytes automated count (number/volume) 9.4 10*3/uL 4.3-11.0 Blood erythrocytes automated count (number/volume) 4.19 10*6/uL 4.35-5.85 Venous blood hemoglobin measurement (mass/volume) 13.4 g/dL 13.3-17.7 Blood hematocrit (volume fraction) 40 % 40-54 Automated erythrocyte mean corpuscular volume 96 [foz_us] 80-99 Automated erythrocyte mean corpuscular hemoglobin (mass per erythrocyte) 32 pg 25-34 Automated erythrocyte mean corpuscular hemoglobin concentration measurement ( mass/volume) 33 g/dL 32-36 Automated erythrocyte distribution width ratio 13.8 % 10.0-14.5 Automated blood platelet count (count/volume) 292 10*3/uL 130-400 Automated blood platelet mean volume measurement 10.4 [foz_us] 7.4-10.4 Automated blood neutrophils/100 leukocytes 65 % 42-75 Automated blood lymphocytes/100 leukocytes 21 % 12-44 Blood monocytes/100 leukocytes 10 % 0-12 Automated blood eosinophils/100 leukocytes 3 % 0-10 Automated blood basophils/100 leukocytes 1 % 0-10 Blood neutrophils automated count (number/volume) 6.1 10*3 1.8-7.8 Blood lymphocytes automated count (number/volume) 2.0 10*3 1.0-4.0 Blood monocytes automated count (number/volume) 1.0 10*3 0.0-1.0 Automated eosinophil count 0.3 10*3/uL 0.0-0.3 Automated blood basophil count (count/volume) 0.1 10*3/uL 0.0-0.1 PT panel in platelet poor plasma by coagulation assay - 06/09/17 14:15 Prothrombin time (PT) in platelet poor plasma by coagulation assay 13.4 s 12.2-14.7 INR in platelet poor plasma or blood by coagulation assay 1.0 0.8-1.4 Erythrocyte sedimentation rate by westergren method - 06/09/17 14:15 Erythrocyte sedimentation rate by westergren method 29 mm 0-30 Comprehensive metabolic panel - 06/09/17 14:15 Serum or plasma sodium measurement (moles/volume) 137 mmol/L 135-145 Serum or plasma potassium measurement (moles/volume) 3.6 mmol/L 3.6-5.0 Serum or plasma chloride measurement (moles/volume) 99 mmol/L 98-107 Carbon dioxide 29 mmol/L 21-32 Serum or plasma anion gap determination (moles/volume) 9 mmol/L 5-14 Serum or plasma urea nitrogen measurement (mass/volume) 32 mg/dL 7-18 Serum or plasma creatinine measurement (mass/volume) 1.01 mg/dL 0.60-1.30 Serum or plasma urea nitrogen/creatinine mass ratio 32 NRG Serum or plasma creatinine measurement with calculation of estimated glomerular filtration rate > NRG Serum or plasma glucose measurement (mass/volume) 113 mg/dL 70-105 Serum or plasma calcium measurement (mass/volume) 9.6 mg/dL 8.5-10.1 Serum or plasma total bilirubin measurement (mass/volume) 0.4 mg/dL 0.1-1.0 Serum or plasma alkaline phosphatase measurement (enzymatic activity/volume) 101 U/L 40-136 Serum or plasma aspartate aminotransferase measurement (enzymatic activity/ volume) 28 U/L 5-34 Serum or plasma alanine aminotransferase measurement (enzymatic activity/volume ) 23 U/L 0-55 Serum or plasma protein measurement (mass/volume) 7.5 g/dL 6.4-8.2 Serum or plasma albumin measurement (mass/volume) 4.1 g/dL 3.2-4.5 Blood type T Indirect antibody screen panel - 06/09/17 14:15 ABO+Rh group OP NRG Blood group antibody screen NEGATIVE NRG Complete urinalysis with reflex to culture - 06/09/17 14:20 Urine color determination YELLOW NRG Urine clarity determination CLEAR NRG Urine pH measurement by test strip 7 5-9 Specific gravity of urine by test strip 1.010 1.016- 1.022 Urine protein assay by test strip, semi-quantitative NEGATIVE NEGATIVE Urine glucose detection by automated test [...] detection in urine sediment by light microscopy 2-5 NRG Crystals detection in urine sediment by light microscopy NONE NRG Casts detection in urine sediment by light microscopy NONE NRG Mucus detection in urine sediment by light microscopy NEGATIVE NRG Complete urinalysis with reflex to culture NO NRG Blood type T Indirect antibody screen panel - 06/16/17 07:11 ABO+Rh group OP NR Transfusion band number [id number] [facility] Blood group antibody screen NEGATIVE [facility] Whole blood hemoglobin and hematocrit panel - 06/17/17 05:25 Venous blood hemoglobin measurement (mass/volume) 10.9 g/dL 13.3-17.7 Blood hematocrit (volume fraction) 32 % 40-54 Whole blood hemoglobin and hematocrit panel - 06/18/17 04:00 Venous blood hemoglobin measurement (mass/volume) 10.9 g/dL 13.3-17.7 Blood hematocrit (volume fraction) 33 % 40-54 Whole blood hemoglobin and hematocrit panel - 06/19/17 06:00 Venous blood hemoglobin measurement (mass/volume) 11.1 g/dL 13.3-17.7 Blood hematocrit (volume fraction) 33 % 40-54 THYROID STIMULATING HORMONE - 08/25/17 13:56 THYROID STIMULATING HORMONE 6.01 u[iU]/mL 0.35-4.94 CMP - 09/28/17 13:42 GLUCOSE 102 mg/dL 65-99 UREA NITROGEN (BUN) 25 mg/dL 7-25 CREATININE 1.16 mg/dL 0.70-1.25 eGFR NON-AFR. ESTONIAN 64 mL/min/1.73m2 > OR=60 eGFR 75 mL/min/1.73m2 > OR=60 BUN/CREATININE RATIO NOT APPLICABLE (calc) 6-22 SODIUM 141 mmol/L 135-146 POTASSIUM 3.8 mmol/L 3.5-5.3 CHLORIDE 101 mmol/L 98-110 CARBON DIOXIDE 29 mmol/L 20-31 CALCIUM 9.4 mg/dL 8.6-10.3 PROTEIN, TOTAL 7.4 g/dL 6.1-8.1 ALBUMIN 4.2 g/dL 3.6-5.1 GLOBULIN 3.2 g/dL (calc) 1.9-3.7 ALBUMIN/GLOBULIN RATIO 1.3 (calc) 1.0-2.5 BILIRUBIN, TOTAL 0.3 mg/dL 0.2-1.2 ALKALINE PHOSPHATASE 111 U/L 40-115 AST 18 U/L 10-35 ALT 13 U/L 9-46 TSH - 10/29/17 08:41 TSH 1.57 mIU/L 0.40-4.50 Arterial blood gas measurement - 02/07/18 10:10 Blood pCO2 39 mm[Hg] 35-45 Blood pO2 68 mm[Hg] 79-93 Arterial blood bicarbonate measurement (moles/volume) 26 mmol/L 23-27 Arterial blood base excess by calculation 2.5 mmol/L -2.5 -2.5 Arterial blood oxygen saturation measurement 97 % 94-100 * Inhaled oxygen flow rate N/A NRG Arterial blood pH measurement with patient temperature correction 7.44 7.37-7.43 Arterial blood carbon dioxide, total measurement (moles/volume) 27.6 mmol/L 21.0-31.0 Body site RIGHT RADIAL NRG Assessment of wrist artery patency prior to arterial puncture POSITIVE NRG Setting of ventilation mode NO NRG Measurement of body temperature 97.5 NRG Encounters ACCT No. Visit Date/Time Discharge Status Pt. Type Provider Facility Loc./Unit Complaint [id number] 06/27/2014 11:00:00 06/27/2014 23:59:59 CLS Outpatient DENISE FATIMA DO [id number] 06/12/2014 15:23:00 06/12/2014 23:59:59 CLS Outpatient MADL BOILER CONTROL ROOM OPERATOR, TAMMY L [id number] 06/12/2014 15:23:00 06/12/2014 23:59:59 CLS Outpatient MADL BOILER CONTROL ROOM OPERATOR, TAMMY L [id number] 04/25/2014 14:01:00 04/25/2014 23:59:59 CLS Outpatient MADL BOILER CONTROL ROOM OPERATOR, TAMMY L [id number] 03/12/2014 13:41:00 03/12/2014 23:59:59 CLS Outpatient MADL BOILER CONTROL ROOM OPERATOR, TAMMY L [id number] 02/27/2014 08:38:00 02/27/2014 23:59:59 CLS Outpatient MADL BOILER CONTROL ROOM OPERATOR, TAMMY L [id number] 02/27/2014 08:38:00 02/27/2014 23:59:59 CLS Outpatient DENISE FATIMA DO [id number] 01/30/2014 15:23:00 01/30/2014 23:59:59 CLS Outpatient DNEISE FATIMA DO [id number] 11/30/2013 14:14:00 11/30/2013 23:59:59 CLS Outpatient MADL BOILER CONTROL ROOM OPERATOR, TAMMY L [id number] 11/16/2013 14:01:00 11/16/2013 23:59:59 CLS Outpatient MADL BOILER CONTROL ROOM OPERATOR, TAMMY L [id number] 10/31/2013 15:18:00 10/31/2013 23:59:59 CLS Outpatient TAMMY COPELAND APRN [id number] 10/02/2013 13:54:00 10/02/2013 23:59:59 CLS Outpatient TAMMY COPELAND APRN [id number] 08/30/2013 08:26:00 08/30/2013 23:59:59 CLS Outpatient FATIMA DODENISE Kyaw [id number] 08/10/2013 16:00:00 08/10/2013 23:59:59 CLS Outpatient FATIMA DOKHADRALo Card [id number] 06/15/2013 14:33:00 06/15/2013 23:59:59 CLS Outpatient FATIMA DO DENISE Card [id number] 06/15/2013 14:33:00 06/15/2013 23:59:59 CLS Outpatient FATIMA DO DENISE Card [id number] 05/29/2013 18:26:00 05/29/2013 23:59:59 CLS Outpatient FATIMA DO DENISE Card [id number] 05/29/2013 18:26:00 05/29/2013 23:59:59 CLS Outpatient FATIMA DO DENISE Card [id number] 05/10/2013 09:52:00 05/10/2013 23:59:59 CLS Outpatient ODILON PARHAM MD [id number] 05/10/2013 09:52:00 05/10/2013 23:59:59 CLS Outpatient ODILON PARHAM MD [id number] 04/19/2013 14:56:00 04/19/2013 23:59:59 CLS Outpatient AC DURHAM APRN [id number] 04/04/2013 07:25:00 04/04/2013 23:59:59 CLS Outpatient CASSI LANZA MD [id number] 01/16/2013 15:55:00 01/16/2013 23:59:59 CLS Outpatient FATIMA DODENISE [id number] 01/06/2013 09:57:00 01/06/2013 23:59:59 CLS Outpatient FATIMA DODENISE [id number] 12/30/2012 08:11:00 12/30/2012 23:59:59 CLS Outpatient ODILON PARHAM MD [id number] 12/12/2012 09:31:00 12/12/2012 23:59:59 CLS Outpatient DENISE FATIMA DO Kyaw [id number] 12/12/2012 09:31:00 12/12/2012 23:59:59 CLS Outpatient DENISE AFTIMA DO Kyaw [id number] 06/22/2012 12:34:00 06/22/2012 23:59:59 CLS Outpatient [id number] 06/10/2012 10:24:00 06/10/2012 23:59:59 CLS Outpatient ODILON PARHAM MD [id number] 03/08/2012 14:11:00 03/08/2012 23:59:59 CLS Outpatient LIEN TINEO MD [id number] 02/17/2012 15:22:00 02/17/2012 23:59:59 CLS Outpatient LIEN TINEO MD [id number] 01/22/2012 10:19:00 01/22/2012 23:59:59 [place] [id number] 01/22/2012 10:19:00 01/22/2012 23:59:59 CLS Outpatient LIEN TINEO MD [id number] 11/30/2012 11:36:00 Document Registration [id number] 11/10/2012 13:28:00 Document Registration [id number] 11/10/2012 13:28:00 Document Registration [id number] 10/26/2012 12:55:00 Document Registration [id number] 09/14/2012 14:00:00 Document Registration [id number] 08/25/2012 16:25:00 Document Registration [id number] 08/17/2012 13:49:00 Document Registration [id number] 06/10/2012 10:24:00 Document Registration [id number] 02/21/2016 10:05:00 Document Registration [id number] 12/11/2014 15:31:02 ACT Document Registration [id number] 10/14/2017 11:05:00 10/14/2017 23:59:59 CLS Outpatient TAMMY COPELAND APRN [facility] [id number] 10/29/2017 09:00:00 Document Registration [id number] 09/28/2017 13:20:00 Document Registration [id number] 02/07/2018 10:04:00 02/07/2018 23:59:59 CLS Preadmit ZELALEM ISSA APRN [facility] RAD ALLERGIC RHINITIS, ASTHMA EXACERBATION WITH COPD [id number] 02/07/2018 10:03:00 02/07/2018 23:59:59 CLS Preadmit ZELALEM ISSA APRN [facility] RT ALLERGIC RHINITIS, ASTHMA EXACERBATION WITH COPD [id number] 02/07/2018 10:00:00 02/07/2018 23:59:59 CLS Outpatient ZELALEM ISSA APRN [facility] RT ALLERGIC RHINITIS, ASTHMA [id number] 12/03/2017 09:38:00 12/03/2017 23:59:59 CLS Outpatient DENISE FATIMA DO [facility] RAD Chronic obstructive pulmonary disease with (acute) [id number] 08/25/2017 13:47:00 08/25/2017 23:59:59 CLS Outpatient ELIGIO VANG DO [facility] LAB E06.3 [id number] 08/11/2017 14:37:00 08/20/2017 10:45:00 DIS Outpatient TAE RUTH MD [facility] REHAB S/P L TKR [id number] 06/16/2017 06:02:00 06/19/2017 11:05:00 DIS Inpatient TAE RUTH MD [facility] 4TH SEVERE OSTEOARTHRITIS LEFT KNEE [id number] 06/09/2017 13:43:00 06/09/2017 14:25:00 DIS Outpatient TAE RUTH MD [facility] PREOP SEVERE OSTEOARTHRITIS LEFT KNEE [id number] 05/24/2017 12:28:00 05/24/2017 23:59:59 CLS Outpatient TAE RUTH MD [facility] RAD MICROPORT [id number] 03/25/2017 09:04:00 05/04/2017 13:33:00 DIS Outpatient TAE RUTH MD [facility] REHAB TOTAL KNEE REPLACEMENT [id number] 01/27/2017 06:00:00 01/30/2017 12:10:00 DIS Inpatient TAE RUTH MD [facility] 4TH RIGHT TOTAL KNEE OSTEOARTHRITIS [id number] 01/20/2017 09:00:00 01/20/2017 10:00:00 DIS Outpatient TAE RUTH MD [facility] PREOP RIGHT OSTEOARTHRITIS [id number] 11/18/2016 09:00:00 11/18/2016 23:59:59 CLS Preadmit TAE RUTH MD [facility] PREOP RIGHT TOTAL KNEE OSTEOARTHRITIS [id number] 09/10/2016 00:12:00 09/10/2016 23:59:59 CLS Preadmit TAE RUTH MD [facility] REHAB COMPLETE RTC TEAR OR RUPTURE OF LEFT SHOULDER [id number] 09/03/2016 15:05:00 09/09/2016 00:01:00 DIS Outpatient TAE RUTH MD [facility] REHAB COMPLETE RTC TEAR OR RUPTURE OF LEFT SHOULDER [id number] 06/10/2016 06:03:00 06/10/2016 11:20:00 DIS Outpatient TAE RUTH MD [facility] SDC TORN LEFT ROTATOR CUFF [id number] 06/08/2016 12:30:00 06/08/2016 12:30:00 CAN TAE Dale MD [facility] PREOP TORN RC [id number] 05/21/2016 10:10:00 05/21/2016 10:30:00 DIS Outpatient TAE RUTH MD [facility] PREOP LEFT SHOULDER ARTHROSCOPY-OPEN ROTATOR CUFF REPAIR [id number] 04/28/2016 15:14:00 04/28/2016 23:59:59 CLS Outpatient TAMMY COPELAND [facility] RAD LT SHOULDER PAIN [id number] 04/22/2016 06:57:00 04/22/2016 13:20:00 DIS Outpatient ALMA BLANKENSHIP MD [facility] CATH ABN STRESS,SOB [id number] 04/13/2016 07:40:00 04/13/2016 23:59:59 CLS Outpatient ALMA BLANKENSHIP MD [facility] CARD CHEST PAIN AT REST, DIASTOLIC DYSFUNCTION [id number] 04/01/2016 12:28:00 04/01/2016 23:59:59 CLS Outpatient ALMA BLANKENSHIP MD [facility] CARD CHEST PAIN AT REST, DIASTOLIC DYSFUNCTION [id number] 02/28/2016 15:33:00 02/28/2016 23:59:59 CLS Outpatient TAMMY COPELAND L INSTRUMENTAL TEACHER [facility] RAD LUQ PAIN [id number] 01/23/2016 10:12:00 01/23/2016 12:55:00 DIS Outpatient CASSI LANZA MD [facility] SDC BLACK TARRY STOOLS; GERD;UPPER GASTRIC PAIN [id number] 01/21/2016 05:55:00 01/21/2016 09:22:00 DIS Outpatient CASSI LANZA MD [facility] PREOP BLACK TARRY STOOLS ; GERD; UPPER GASTRIC PAIN [id number] 11/21/2015 10:26:00 11/21/2015 23:59:59 CLS Outpatient ELIGIO VANG DO [facility] LAB HASHIMOTOS THYROIDITIS [id number] 07/05/2015 21:05:00 07/06/2015 06:29:00 DIS Outpatient GABRIEL MOREAU DO [facility] SLEEP SNORING [id number] 12/11/2014 15:30:00 12/11/2014 23:59:59 CLS Outpatient LAM COPELANDA L INSTRUMENTAL TEACHER [facility] RAD RT SHOUDLER PAIN [id number] 11/30/2014 10:04:00 11/30/2014 23:59:59 CLS Outpatient LAM COPELANDA L INSTRUMENTAL TEACHER [facility] RAD THYROID FUNCTION TEST ABN [id number] 08/01/2014 10:25:00 08/01/2014 17:50:00 DIS Outpatient CASSI LANZA MD [facility] SDC GALLBLADDER DYSKENSIA [id number] 07/27/2014 12:29:00 07/27/2014 23:59:59 CLS Outpatient CASSI LANZA MD [facility] PREOP GALLBLADDER DYSKENSIA [id number] 07/17/2014 10:07:00 07/17/2014 23:59:59 CLS Outpatient TAMMY COPELAND INSTRUMENTAL TEACHER [facility] CARD ABDOMINAL PAIN EPIGASTRIC [id number] 07/09/2014 08:32:00 07/09/2014 11:15:00 DIS Outpatient CASSI LANZA MD [facility] NAUSEA;ABDOMINAL PAIN [id number] 07/04/2014 06:19:00 07/04/2014 23:59:59 CLS Outpatient CASSI LANZA MD [facility] PREOP NAUSEA; ABDOMINAL PAIN [id number] 06/19/2014 08:50:00 06/19/2014 23:59:59 CLS Outpatient MADTAMMY Bell INSTRUMENTAL TEACHER [facility] RAD EPIGASTRIC PAIN, RUQ PAIN [id number] 05/07/2014 08:02:00 05/07/2014 23:59:59 CLS Outpatient CASSI LANZA MD [facility] HISTORY POLYPS [id number] 04/05/2014 06:15:00 04/05/2014 23:59:59 CLS Outpatient CASSI LANZA MD [facility] PREOP HISTORY POLYPS [id number] 01/31/2014 07:09:00 01/31/2014 23:59:59 CLS Outpatient CASSI LANZA MD [facility] PREOP HISTORY POLYPS [id number] 01/12/2014 03:59:00 01/12/2014 06:29:00 DIS Emergency AC VOGT DO [facility] ER ABD PAIN [id number] 01/30/2013 08:28:00 01/30/2013 10:35:00 DIS Outpatient CASSI LANZA MD [facility] HISTORY OF POLYPS [id number] 01/25/2013 07:12:00 01/25/2013 23:59:59 CLS Outpatient CASSI LANZA MD [facility] PREOP HISTORY OF POLYPS [id number] 12/15/2012 08:14:00 12/15/2012 23:59:59 CLS Outpatient TAMMY COPELAND INSTRUMENTAL TEACHER [facility] RAD RUQ PAIN [id number] 10/27/2012 15:35:00 10/27/2012 23:59:59 CLS Outpatient ZANDRA LOPEZ [facility] RAD PAIN IN JOINT [id number] 02/14/2018 08:00:00 PEN Preadmit MYLA NUÑEZ, CASSI Santos [facility] ENDO HX POLYPS [id number] 06/20/2015 13:54:00 Document Registration [id number] 10/18/2014 14:25:00 Document Registration [id number] 10/18/2014 14:25:00 Document Registration [id number] 10/18/2014 14:25:00 Document Registration [id number] 01/06/2012 15:30:00 Document Registration [id number] 12/04/2011 08:17:00 Document Registration [id number] 07/22/2011 14:20:00 Document Registration [id number] 07/01/2011 08:47:00 Document Registration [id number] 02/16/2016 13:05:00 Document Registration
[2018-02-11 11:39] LABS: ABG BASE EXCESS 0.7 MMOL/L (-2.5-2.5); ABG OXYGEN SATURATION 96 % (94-100); ABG PCO2 38 MMHG (35-45); ABG PH 7.43 (7.37-7.43); ABG PO2 83 MMHG (79-93); ABG TCO2 25.7 MMOL/L (21.0-31.0)
[2018-02-11 11:39] LABS: ALANINE AMINOTRANSFERASE 26 U/L (0-55); ALBUMIN 4.2 GM/DL (3.2-4.5); ALKALINE PHOSPHATASE 125 U/L (40-136); BILIRUBIN,TOTAL 0.5 MG/DL (0.1-1.0); BUN/CREATININE RATIO 21; CALCIUM 9.3 MG/DL (8.5-10.1); CARBON DIOXIDE 22 MMOL/L (21-32); CHLORIDE 105 MMOL/L (98-107); CREATININE SERUM 1.01 MG/DL (0.60-1.30); GFR ESTIMATED > 60; GLUCOSE 113 MG/DL (70-105); POTASSIUM 3.9 MMOL/L (3.6-5.0); SODIUM 139 MMOL/L (135-145); TOTAL PROTEIN 7.7 GM/DL (6.4-8.2)
[2018-02-11 11:40] LABS: ALLENS TEST YES-POS; INSPIRED O2 RM AIR; PATIENT TEMP 98.3; VENTILATOR NO
--- NOTE | 2018-02-11 11:42 | Diagnostic Imaging Report ---
EXAM: PA and lateral chest COMPARISON to a prior study from 12/03/2017 INDICATION: Shortness of breath. Cough and left chest pain. FINDINGS: Chronic interstitial changes are demonstrated within the lungs. These appear unchanged from the prior examination. There is flattening of the diaphragms compatible with air trapping. There is no focal alveolar consolidation demonstrated or evidence of an effusion. There is no pneumothorax. Heart size and mediastinal contours appear unchanged. Central pulmonary vascularity appears within normal limits. IMPRESSION: 1. Background features of interstitial lung disease with findings suggesting COPD and air trapping. No new superimposed acute process evident. Dictated by: Dictated on workstation # [id number]
[2018-02-11] MEDS ORDERED: LIDOCAINE/EPI 2% 1:100,00 (XYLOCAINE) 20 ML VIAL ONE (11:47)
[2018-02-11] MEDS ORDERED: BUPIVACAINE 0.5% 30 ML (SENSORCAINE) VIAL ONE (11:47)
[2018-02-11] MEDS ORDERED: PRD20T PO (12:05)
[2018-02-11] MEDS ORDERED: ALBU2.5V4 IH (12:05)
[2018-02-11] MEDS ORDERED: CEFU250T80 PO (12:05)
[2018-02-11] MEDS ORDERED: methylPREDNISolone 125 MG (Solu-MEDROL) VIAL IVP ONE (12:15)
[2018-02-11 12:17] VITALS: BP 171/92
== END 2018-02-11 12:17 | disposition home or self-care (01) ==
LOC: EDUNIT# 10:55 → ER 10:55
DX: J44.1 Chronic obstructive pulmonary disease with (acute) exacerbation (principal); G47.30 Sleep apnea, unspecified; I10 Essential (primary) hypertension; K21.9 Gastro-esophageal reflux disease without esophagitis; G43.909 Migraine, unspecified, not intractable, without status migrainosus; M17.12 Unilateral primary osteoarthritis, left knee; E03.9 Hypothyroidism, unspecified; Z88.5 Allergy status to narcotic agent; Z87.19 Personal history of other diseases of the digestive system; Z79.82 Long term (current) use of aspirin; Z82.49 Family history of ischemic heart disease and other diseases of the circulatory system; Z79.51 Long term (current) use of inhaled steroids; Z87.891 Personal history of nicotine dependence; Z98.52 Vasectomy status
CPT/HCPCS: 36415; 36600; 71046; 80053; 82805; 83880; 84484; 85025; 93005; 94640

== ENCOUNTER → 2018-04-15 | Outpatient (CLI) | payer MEDICARE ==
[~2018-04-15] MED LIST changes: +ALBU2.5V4 IH; -AMLO10TA6 PO; +AMLO10TA7 PO; +CEFU250T80 PO; +PRD20T PO
--- NOTE | 2018-04-15 14:10 | Diagnostic Imaging Report ---
PROCEDURE: CT chest without contrast. TECHNIQUE: Multiple contiguous axial images were obtained through the chest without the use of intravenous contrast. INDICATION: Shortness of breath, asthma and COPD. COMPARISON: No prior studies are available for comparison. FINDINGS: No axillary lymphadenopathy is seen. Hilar and mediastinal evaluation is limited without intravenous contrast. There appears to be coronary arterial calcifications present. No pericardial or pleural fluid is identified. Central airways are unremarkable. Lungs are clear. No infiltrates, nodules or masses are seen. The upper abdomen is unremarkable. The bony structures appear nonacute. There is multilevel thoracic spondylosis. IMPRESSION: Unremarkable noncontrast CT of the chest. Dictated by: Dictated on workstation # [id number]
[2018-04-15] MEDS: RT-ALBUTEROL SULF 2.5 MG/3 ML PRE-MIX VIAL INH ONE (14:37)
== END ==
LOC: RAD 13:31
PROVIDERS: ATTEND Nurse Practitioner Family
DX: J44.1 Chronic obstructive pulmonary disease with (acute) exacerbation (principal); J40 Bronchitis, not specified as acute or chronic; J30.9 Allergic rhinitis, unspecified; G47.33 Obstructive sleep apnea (adult) (pediatric)
CPT/HCPCS: 71250; 94060; 94726; 94729

== ENCOUNTER → 2018-05-30 | Outpatient (CLI) | payer MEDICARE ==
[2018-05-30 12:56] LABS: BASOPHILS # (AUTO) 0.1 10^3/uL (0.0-0.1); BASOPHILS % (AUTO) 1 % (0-10); EOSINOPHILS # (AUTO) 0.4 10^3/uL (0.0-0.3); EOSINOPHILS % (AUTO) 4 % (0-10); HEMATOCRIT 35 % (40-54); HEMOGLOBIN 11.9 G/DL (13.3-17.7); LYMPHOCYTES # (AUTO) 0.9 X 10^3 (1.0-4.0); LYMPHOCYTES % (AUTO) 9 % (12-44); MEAN CORPUSCULAR HEMOGLOBIN 34 PG (25-34); MEAN CORPUSCULAR HGB CONC 34 G/DL (32-36); MEAN CORPUSCULAR VOLUME 100 FL (80-99); MEAN PLATELET VOLUME 10.1 FL (7.4-10.4); MONOCYTES # (AUTO) 0.9 X 10^3 (0.0-1.0); MONOCYTES % (AUTO) 9 % (0-12); NEUTROPHILS % (AUTO) 78 % (42-75); PLATELET COUNT 292 10^3/uL (130-400); RED CELL DISTRIBUTION WIDTH 13.7 % (10.0-14.5); WHITE BLOOD COUNT 10.2 10^3/uL (4.3-11.0)
[2018-05-30 13:16] LABS: ALBUMIN 4.4 GM/DL (3.2-4.5); BILIRUBIN,DIRECT 0.2 MG/DL (0.0-0.3); BILIRUBIN,INDIRECT 0.2 MG/DL; BILIRUBIN,TOTAL 0.4 MG/DL (0.1-1.0); CREATININE SERUM 1.39 MG/DL (0.60-1.30); TOTAL PROTEIN 7.8 GM/DL (6.4-8.2)
[2018-05-30 13:18] LABS: ERYTHROCYTE SEDIMENTATION RATE 40 MM/HR (0-30)
== END ==
LOC: LAB 12:38
PROVIDERS: ATTEND Internal Medicine Rheumatology
DX: M06.041 Rheumatoid arthritis without rheumatoid factor, right hand (principal); M06.042 Rheumatoid arthritis without rheumatoid factor, left hand; Z79.899 Other long term (current) drug therapy
CPT/HCPCS: 36415; 80076; 82565; 85025; 85652; 86141

== ENCOUNTER → 2018-07-25 | Outpatient (CLI) | payer MEDICARE ==
[2018-07-25 12:32] LABS: BASOPHILS # (AUTO) 0.1 10^3/uL (0.0-0.1); BASOPHILS % (AUTO) 1 % (0-10); EOSINOPHILS # (AUTO) 0.4 10^3/uL (0.0-0.3); EOSINOPHILS % (AUTO) 6 % (0-10); HEMATOCRIT 36 % (40-54); HEMOGLOBIN 12.2 G/DL (13.3-17.7); LYMPHOCYTES # (AUTO) 1.5 X 10^3 (1.0-4.0); LYMPHOCYTES % (AUTO) 25 % (12-44); MEAN CORPUSCULAR HEMOGLOBIN 34 PG (25-34); MEAN CORPUSCULAR HGB CONC 34 G/DL (32-36); MEAN CORPUSCULAR VOLUME 100 FL (80-99); MEAN PLATELET VOLUME 10.2 FL (7.4-10.4); MONOCYTES # (AUTO) 0.8 X 10^3 (0.0-1.0); MONOCYTES % (AUTO) 14 % (0-12); NEUTROPHILS # (AUTO) 3.3 X 10^3 (1.8-7.8); NEUTROPHILS % (AUTO) 54 % (42-75); PLATELET COUNT 260 10^3/uL (130-400); RED CELL DISTRIBUTION WIDTH 12.8 % (10.0-14.5)
[2018-07-25 12:52] LABS: ERYTHROCYTE SEDIMENTATION RATE 45 MM/HR (0-30)
[2018-07-25 12:55] LABS: ALBUMIN 4.4 GM/DL (3.2-4.5); BILIRUBIN,DIRECT 0.2 MG/DL (0.0-0.3); BILIRUBIN,INDIRECT 0.2 MG/DL; BILIRUBIN,TOTAL 0.4 MG/DL (0.1-1.0); CREATININE SERUM 1.1 MG/DL (0.60-1.30); TOTAL PROTEIN 7.9 GM/DL (6.4-8.2)
== END ==
LOC: LAB 12:14
PROVIDERS: ATTEND Internal Medicine Rheumatology
DX: M06.041 Rheumatoid arthritis without rheumatoid factor, right hand (principal); M06.042 Rheumatoid arthritis without rheumatoid factor, left hand; Z79.899 Other long term (current) drug therapy
CPT/HCPCS: 36415; 80076; 82565; 85025; 85652; 86141

== ENCOUNTER → 2018-07-25 | Outpatient (CLI) | payer MEDICARE | LOC: LAB 12:18 | PROVIDERS: ATTEND Nurse Practitioner Family | DX: E06.3 Autoimmune thyroiditis (principal) | CPT/HCPCS: 36415; 84439 ==

== ENCOUNTER → 2018-11-22 | Outpatient (CLI) | payer MEDICARE ==
[~2018-11-22] MED LIST changes: +OMEP20CA13 PO
[2018-11-22 08:44] LABS: BASOPHILS % (AUTO) 1 % (0-10); EOSINOPHILS # (AUTO) 0.3 10^3/uL (0.0-0.3); EOSINOPHILS % (AUTO) 4 % (0-10); HEMATOCRIT 37 % (40-54); HEMOGLOBIN 12.3 G/DL (13.3-17.7); LYMPHOCYTES % (AUTO) 13 % (12-44); MEAN CORPUSCULAR HEMOGLOBIN 32 PG (25-34); MEAN CORPUSCULAR HGB CONC 34 G/DL (32-36); MEAN CORPUSCULAR VOLUME 95 FL (80-99); MEAN PLATELET VOLUME 10.4 FL (7.4-10.4); MONOCYTES # (AUTO) 0.9 X 10^3 (0.0-1.0); MONOCYTES % (AUTO) 11 % (0-12); NEUTROPHILS # (AUTO) 5.5 X 10^3 (1.8-7.8); NEUTROPHILS % (AUTO) 71 % (42-75); PLATELET COUNT 290 10^3/uL (130-400); RED CELL DISTRIBUTION WIDTH 13.6 % (10.0-14.5); WHITE BLOOD COUNT 7.7 10^3/uL (4.3-11.0)
[2018-11-22 09:08] LABS: ALANINE AMINOTRANSFERASE 24 U/L (0-55); ALBUMIN 4.3 GM/DL (3.2-4.5); ALKALINE PHOSPHATASE 105 U/L (40-136); BILIRUBIN,TOTAL 0.3 MG/DL (0.1-1.0); BUN/CREATININE RATIO 22; CALCIUM 9.9 MG/DL (8.5-10.1); CARBON DIOXIDE 28 MMOL/L (21-32); CHLORIDE 104 MMOL/L (98-107); CHOLESTEROL 153 MG/DL (< 200); CREATININE SERUM 1.06 MG/DL (0.60-1.30); GFR ESTIMATED > 60; GLUCOSE 115 MG/DL (70-105); HDL CHOLESTEROL 48 MG/DL (40-60); POTASSIUM 3.7 MMOL/L (3.6-5.0); SODIUM 141 MMOL/L (135-145); TOTAL PROTEIN 7.9 GM/DL (6.4-8.2); TRIGLYCERIDES 155 MG/DL (<150); VLDL CHOLESTEROL 31 MG/DL (5-40)
[2018-11-22 09:20] LABS: ERYTHROCYTE SEDIMENTATION RATE 46 MM/HR (0-30)
== END ==
LOC: LAB 08:00
PROVIDERS: ATTEND Internal Medicine Rheumatology
DX: M06.041 Rheumatoid arthritis without rheumatoid factor, right hand (principal); M06.042 Rheumatoid arthritis without rheumatoid factor, left hand; Z79.899 Other long term (current) drug therapy
CPT/HCPCS: 36415; 80053; 80061; 85025; 85652; 86141

== ENCOUNTER → 2019-04-11 | Outpatient (CLI) | payer MEDICARE ==
[~2019-04-11] MED LIST changes: +OMEP-280 PO; -OMEP20CA13 PO
== END ==
LOC: LAB 10:56
PROVIDERS: ATTEND Nurse Practitioner Family
DX: E06.3 Autoimmune thyroiditis (principal)
CPT/HCPCS: 36415; 84443

== ENCOUNTER → 2019-04-11 | Outpatient (CLI) | payer MEDICARE ==
[2019-04-11 11:23] LABS: BASOPHILS # (AUTO) 0.1 10^3/uL (0.0-0.1); BASOPHILS % (AUTO) 1 % (0-10); EOSINOPHILS # (AUTO) 0.3 10^3/uL (0.0-0.3); EOSINOPHILS % (AUTO) 5 % (0-10); HEMATOCRIT 38 % (40-54); HEMOGLOBIN 12.5 G/DL (13.3-17.7); LYMPHOCYTES % (AUTO) 14 % (12-44); MEAN CORPUSCULAR HEMOGLOBIN 32 PG (25-34); MEAN CORPUSCULAR HGB CONC 33 G/DL (32-36); MEAN CORPUSCULAR VOLUME 96 FL (80-99); MEAN PLATELET VOLUME 10.5 FL (7.4-10.4); MONOCYTES # (AUTO) 0.8 X 10^3 (0.0-1.0); MONOCYTES % (AUTO) 11 % (0-12); NEUTROPHILS # (AUTO) 4.9 X 10^3 (1.8-7.8); NEUTROPHILS % (AUTO) 70 % (42-75); PLATELET COUNT 275 10^3/uL (130-400); RED CELL DISTRIBUTION WIDTH 13.2 % (10.0-14.5); WHITE BLOOD COUNT 7.1 10^3/uL (4.3-11.0)
== END ==
LOC: LAB 10:49
PROVIDERS: ATTEND Internal Medicine Rheumatology
DX: Z51.81 Encounter for therapeutic drug level monitoring (principal); Z79.899 Other long term (current) drug therapy
CPT/HCPCS: 85025

== ENCOUNTER → 2019-05-23 | Outpatient (CLI) | payer MEDICARE ==
[~2019-05-23] MED LIST changes: -OMEP-280 PO; +OMEP20CA18 PO; -ROPI0.5T2 PO; +ROPI0.5T4 PO
[2019-05-23 08:22] LABS: BASOPHILS # (AUTO) 0.1 10^3/uL (0.0-0.1); BASOPHILS % (AUTO) 1 % (0-10); EOSINOPHILS # (AUTO) 0.4 10^3/uL (0.0-0.3); EOSINOPHILS % (AUTO) 7 % (0-10); HEMATOCRIT 38 % (40-54); HEMOGLOBIN 12.5 G/DL (13.3-17.7); LYMPHOCYTES % (AUTO) 17 % (12-44); MEAN CORPUSCULAR HEMOGLOBIN 32 PG (25-34); MEAN CORPUSCULAR HGB CONC 33 G/DL (32-36); MEAN CORPUSCULAR VOLUME 97 FL (80-99); MEAN PLATELET VOLUME 10.3 FL (7.4-10.4); MONOCYTES # (AUTO) 0.7 X 10^3 (0.0-1.0); MONOCYTES % (AUTO) 11 % (0-12); NEUTROPHILS % (AUTO) 64 % (42-75); PLATELET COUNT 291 10^3/uL (130-400); RED CELL DISTRIBUTION WIDTH 13.5 % (10.0-14.5); WHITE BLOOD COUNT 6.2 10^3/uL (4.3-11.0)
[2019-05-23 08:41] LABS: ALANINE AMINOTRANSFERASE 27 U/L (0-55); ALBUMIN 4.3 GM/DL (3.2-4.5); ALKALINE PHOSPHATASE 93 U/L (40-136); BILIRUBIN,TOTAL 0.4 MG/DL (0.1-1.0); BUN/CREATININE RATIO 24; CALCIUM 9.7 MG/DL (8.5-10.1); CARBON DIOXIDE 28 MMOL/L (21-32); CHLORIDE 103 MMOL/L (98-107); CHOLESTEROL 171 MG/DL (< 200); CREATININE SERUM 1.14 MG/DL (0.60-1.30); GFR ESTIMATED > 60; GLUCOSE 109 MG/DL (70-105); HDL CHOLESTEROL 46 MG/DL (40-60); SODIUM 142 MMOL/L (135-145); TOTAL PROTEIN 7.8 GM/DL (6.4-8.2); TRIGLYCERIDES 132 MG/DL (<150); VLDL CHOLESTEROL 26 MG/DL (5-40)
[2019-05-23 09:06] LABS: ERYTHROCYTE SEDIMENTATION RATE 50 MM/HR (0-30)
== END ==
LOC: LAB 08:05
PROVIDERS: ATTEND Internal Medicine Rheumatology
DX: M06.041 Rheumatoid arthritis without rheumatoid factor, right hand (principal); M06.042 Rheumatoid arthritis without rheumatoid factor, left hand; Z79.899 Other long term (current) drug therapy
CPT/HCPCS: 36415; 80053; 80061; 85025; 85652; 86141

== ENCOUNTER → 2019-05-25 | Outpatient (CLI) | payer MEDICARE ==
[~2019-05-25] MED LIST changes: +CATHETER FLUSH 10 ML SYR IV PRN; +HOLD METFORMIN - RECEIVED CONTRAST 20 ML VIAL IV SCH; +IOHEXOL 350 MG/ML 100 ML (OMNIPAQUE 350) VIAL IV ONE; +NS 100 ML (IVPB) BAG IV ONE
--- NOTE | 2019-05-25 13:20 | Diagnostic Imaging Report ---
EXAMINATION: CT angiography of the chest. TECHNIQUE: Contrast enhanced thin section helical images were obtained through the chest with intravenous contrast timed for the optimal opacification of the arterial structures per CTA protocol. Post-processing, reconstructions and interpretation of angiographic images of the vessels was performed. 3D MIP reconstructions were performed and reviewed. All CT scans use one or more of the following dose optimizing techniques: automated exposure control, MA and/or KvP adjustment based on a patient size and exam type, or iterative reconstruction. HISTORY: Shortness of breath. COMPARISON: 04/15/2018 FINDINGS: There is no pulmonary embolism. There is no edema or pneumonia. No pleural effusion. No pneumothorax. No suspicious nodules. Heart size is normal. There are mild coronary artery calcifications. No pericardial effusion. Aorta is normal in caliber. There is no axillary or supraclavicular lymphadenopathy. There is no mediastinal lymphadenopathy. Limited views of the upper abdomen are unremarkable. There are no suspicious osseous lesions. IMPRESSION: 1. No pulmonary embolism, clear lungs. Dictated by: Dictated on workstation # [id number]
--- NOTE | 2019-05-25 14:24 | Diagnostic Imaging Report ---
PROCEDURE: US Venous Lower Ext Cristopher. TECHNIQUE: Multiple real-time grayscale images were obtained over the lower extremities in various projections, bilaterally. Additional duplex Doppler and color Doppler images were also obtained. INDICATION: Shortness of breath. COMPARISON: There are no prior studies available for comparison. FINDINGS: There is generally good blood flow and compressibility at all levels. There is no evidence for deep venous thrombosis. IMPRESSION: There is no evidence for a deep venous thrombosis of either lower extremity. Dictated by: Dictated on workstation # [id number]
== END ==
LOC: RT 10:51
PROVIDERS: ATTEND Internal Medicine Critical Care Medicine
DX: Z01.818 Encounter for other preprocedural examination (principal); R06.02 Shortness of breath
CPT/HCPCS: 71275; 93970

== ENCOUNTER → 2019-08-17 | Outpatient (CLI) | payer MEDICARE ==
[~2019-08-17] MED LIST changes: -CATHETER FLUSH 10 ML SYR IV PRN; -HOLD METFORMIN - RECEIVED CONTRAST 20 ML VIAL IV SCH; -IOHEXOL 350 MG/ML 100 ML (OMNIPAQUE 350) VIAL IV ONE; -NS 100 ML (IVPB) BAG IV ONE
[2019-08-17 14:53] LABS: BASOPHILS # (AUTO) 0.1 10^3/uL (0.0-0.1); BASOPHILS % (AUTO) 1 % (0-10); EOSINOPHILS # (AUTO) 0.3 10^3/uL (0.0-0.3); EOSINOPHILS % (AUTO) 5 % (0-10); HEMATOCRIT 37 % (40-54); HEMOGLOBIN 12.2 G/DL (13.3-17.7); LYMPHOCYTES # (AUTO) 1.3 X 10^3 (1.0-4.0); LYMPHOCYTES % (AUTO) 20 % (12-44); MEAN CORPUSCULAR HEMOGLOBIN 32 PG (25-34); MEAN CORPUSCULAR HGB CONC 33 G/DL (32-36); MEAN CORPUSCULAR VOLUME 97 FL (80-99); MEAN PLATELET VOLUME 10.3 FL (7.4-10.4); MONOCYTES # (AUTO) 0.7 X 10^3 (0.0-1.0); MONOCYTES % (AUTO) 11 % (0-12); NEUTROPHILS # (AUTO) 4.2 X 10^3 (1.8-7.8); NEUTROPHILS % (AUTO) 64 % (42-75); PLATELET COUNT 293 10^3/uL (130-400); RED CELL DISTRIBUTION WIDTH 13.4 % (10.0-14.5); WHITE BLOOD COUNT 6.6 10^3/uL (4.3-11.0)
[2019-08-17 15:00] LABS: ALBUMIN 4.5 GM/DL (3.2-4.5)
[2019-08-17 15:01] LABS: POTASSIUM 3.5 MMOL/L (3.6-5.0)
[2019-08-17 15:02] LABS: CALCIUM 9.7 MG/DL (8.5-10.1)
[2019-08-17 15:03] LABS: TOTAL PROTEIN 8.2 GM/DL (6.4-8.2)
[2019-08-17 15:05] LABS: BILIRUBIN,TOTAL 0.3 MG/DL (0.1-1.0)
[2019-08-17 15:07] LABS: CREATININE SERUM 1.25 MG/DL (0.60-1.30)
[2019-08-17 15:22] LABS: ERYTHROCYTE SEDIMENTATION RATE 45 MM/HR (0-30)
== END ==
LOC: LAB 14:34
PROVIDERS: ATTEND Internal Medicine Rheumatology
DX: M06.041 Rheumatoid arthritis without rheumatoid factor, right hand (principal); M06.042 Rheumatoid arthritis without rheumatoid factor, left hand; Z79.899 Other long term (current) drug therapy
CPT/HCPCS: 36415; 80053; 85025; 85652; 86141

== ENCOUNTER → 2019-10-31 | Outpatient (CLI) | payer MEDICARE ==
[2019-10-31 15:11] LABS: TSH (THYROID ANALYZER) 0.13 UIU/ML (0.35-4.94)
[2019-10-31 15:56] LABS: FREE T4 (FREE THYROXINE) 1.2 NG/DL (0.70-1.48)
== END ==
LOC: LAB 14:16
PROVIDERS: ATTEND Nurse Practitioner Family
DX: E06.3 Autoimmune thyroiditis (principal)
CPT/HCPCS: 36415; 84439; 84443

== ENCOUNTER → 2021-09-11 | Outpatient (CLI) | payer MEDICARE ==
[~2021-09-11] MED LIST changes: +AMLO-251 PO; -AMLO10TA7 PO; +HYDR50TA6 PO; -QUIN20TA16 PO; +QUIN20TA36 PO; +RT-ALBUTEROL SULF 2.5 MG/3 ML PRE-MIX VIAL INH ONE
== END ==
LOC: RT 13:51
PROVIDERS: ATTEND Nurse Practitioner Family
DX: J45.40 Moderate persistent asthma, uncomplicated (principal)
CPT/HCPCS: 94060; 94726; 94729

== ENCOUNTER 2022-11-24 09:40 | Emergency (ER) | payer MEDICARE ==
[~2022-11-24] VITALS: Ht 183 cm; Wt 153.3 kg
[~2022-11-24 09:40] MED LIST changes: +ROPI0.5T37 PO; -ROPI0.5T4 PO; -RT-ALBUTEROL SULF 2.5 MG/3 ML PRE-MIX VIAL INH ONE
--- NOTE | 2022-11-24 10:12 | ED Cardiac General ---
History of Present Illness General Chief Complaint: Chest Pain Stated Complaint: SHORTNESS OF BREATH, CHEST PAIN Nursing Triage Note: C/O PAIN FOR 9 DAYS, PAIN IS DESCRIBED EPIGASTRIC THAT RADIATES DOWN BOTTOM OF RIB CAGE TOWARD LATERAL RIBS HE GESTURES TO IDENTIFY PAIN. Source: patient Exam Limitations: no limitations History of Present Illness Date Seen by Provider: Nov 24, 2022 Time Seen by Provider: 09:55 Initial Comments Patient is a 72-year-old male who presents to the emergency room with a chief complaint of "chest pain". He states its been coming and going for at least 2 to 3 weeks. He points to the lower rib cage, epigastrium across his upper abdomen. He states that sometimes it is worse at night sometimes worse in the morning. He denies any nausea associated with the pain. No sweating. He has "asthma" and is frequently short of breath. He denies any specific precipitating factors. He currently rates it at a "5". He has family history of coronary artery disease. He is a former smoker quit 43 years ago. He has had prior stress test and cardiac cath in 2017. He had 40 to 50% blockage in the LAD at that time. No ongoing cardiac follow-up since that time. He is a "borderline" diabetic. He is on cholesterol medication and blood pressure medicine. Nothing makes the pain any worse when it occurs. Nothing makes it any better. The pain does not radiate into his back, shoulders, neck or arms. Timing/Duration: other (2-3 weeks) Severity: moderate Location: epigastric Activities at Onset: none Prior CP/Workup: cardiac cath (2017) NTG SL ADVOCACY DIRECTOR: No ASA po ADVOCACY DIRECTOR: Yes (81MG) Associated Systoms: Chest Pain Allergies and Home Medications Allergies Coded Allergies: celecoxib (Verified Allergy, Unknown, 11/24/22) hydrocodone (Verified Allergy, Unknown, HAS HAD PERCOCET & MORPHINE IN THE PAST W/O ISSUE, 11/24/22) Patient Home Medication List Home Medication List Reviewed: Yes Albuterol Sulfate (Albuterol Sulfate) 2.5 Mg/3 Ml Vial.neb, 2.5 MG IH Q4H PRN for DYSPNEA Prescribed by: PAOLA QUICK on 02/11/18 1205 Amlodipine Besylate (Amlodipine Besylate) 10 Mg Tablet, 10 MG PO DAILY, (Reported) Entered as Reported by: DIGNA WHITE on 01/20/17 1123 Aspirin (Aspir 81) 81 Mg Tablet.dr, 81 MG PO DAILY, (Reported) Entered as Reported by: NEMO CASTANEDA on 05/21/16 1026 Budesonide/Formoterol Fumarate (Symbicort 160-4.5 Mcg Inhaler) 10.2 Gm Hfa.aer.ad, 2 PUFF IH BID, (Reported) Entered as Reported by: NEMO CASTANEDA on 06/09/17 1435 Calcium Carbonate/Mag Oxide/Zn (Qmgjffd-Ylihibtis-Seat Tablet) 1 Each Tablet, 2 TAB PO DAILY, (Reported) Entered as Reported by: NEMO CASTANEDA on 01/20/17 1014 Cefuroxime Axetil (Cefuroxime) 250 Mg Tablet, 250 MG PO BID Prescribed by: PAOLA QUICK on 02/11/18 1205 Cholecalciferol (Vitamin D3) (Vitamin D3) 1,000 Unit Tablet, 2,000 UNIT PO DAILY, (Reported) Entered as Reported by: NEMO CASTANEDA on 05/21/16 1026 Fluticasone Propionate (Flonase Allergy Relief) 9.9 Ml [place].susp, 2 SPRAYS NS DAILY, (Reported) Entered as Reported by: DIGNA WHITE on 01/20/17 1409 Gabapentin (Gabapentin) 300 Mg Capsule, 300 MG PO HS, (Reported) Entered as Reported by: DIGNA WHITE on 01/20/17 1123 Hydrochlorothiazide (Hydrochlorothiazide) 50 Mg Tablet, 50 MG PO DAILY, (Reported) Entered as Reported by: DIGNA WHITE on 01/20/17 1123 Levothyroxine Sodium (Levothyroxine Sodium) 50 Mcg Tablet, 50 MCG PO HS, (Reported) Entered as Reported by: NEMO CASTANEDA on 05/21/16 1026 Levothyroxine Sodium (Levothyroxine Sodium) 200 Mcg Tablet, 200 MCG PO HS, (Reported) Entered as Reported by: DIGNA WHITE on 01/20/17 1123 Meloxicam (Meloxicam) 15 Mg Tablet, 15 MG PO HS, (Reported) Entered as Reported by: CAMI DAVENPORT on 04/22/16 0746 [place] 3 Polyunsat Fatty Acids (Fish Oil 1,000 mg Capsule) 1,000 Mg Cap, 2,000 MG PO DAILY, (Reported) Entered as Reported by: NEMO CASTANEDA on 05/21/16 1026 Omeprazole (Omeprazole) 20 Mg Capsule.dr, 20 MG PO HS, (Reported) Entered as Reported by: DIGNA WHITE on 01/20/17 1123 Oxycodone HCl/Acetaminophen (Percocet 5-325 mg Tablet) 1 Each Tablet, 1 EACH PO Q4H Prescribed by: TAE RUTH on 06/16/17 0734 Prednisone (Prednisone) 20 Mg Tab, 40 MG PO DAILY Prescribed by: PAOLA QUICK on 02/11/18 1205 Quinapril HCl (Quinapril HCl) 20 Mg Tablet, 60 MG PO DAILY, (Reported) Entered as Reported by: DIGNA WHITE on 01/20/17 1123 Review of Systems Review of Systems Constitutional: see HPI EENTM: No Symptoms Reported Respiratory: No Symptoms Reported Cardiovascular: Chest Pain Gastrointestinal: No Symptoms Reported Genitourinary: No Symptoms Reported Musculoskeletal: no symptoms reported Skin: no symptoms reported Psychiatric/Neurological: No Symptoms Reported All Other Systems Reviewed Negative Unless Noted: Yes Past Kzphtxo-Rlbyhi-Fwfqmw Hx Patient Social History Tobacco Use?: No Smoking Status: Former Smoker Use of E-Cig and/or Vaping dev: No Substance use?: No Alcohol Use?: Yes Alcohol type: Beer Alcohol Frequency: Once in a while Pt feels they are or have been: No Immunizations Up To Date Tetanus Booster (TDap): Less than 5yrs Influenza Vaccine Up-to-Date: Yes; Up-to-Date First/Initial COVID19 Vaccinat: 5 shots Seasonal Allergies Seasonal Allergies: Yes Past Medical History Surgery/Hospitalization HX: HTN, HYPOTHYROID, ASTHMA, NEUROPATHY, ARTHRITIS BILATERAL KNEE SURG, LEFT SHOULDER REPLACEMENT Surgeries: No (RT KNEE SCOPE, VASECTOMY THEN REVERSAL, FOOT SX, LEFT RCR) Gallbladder, Orthopedic, Vasectomy Respiratory: Yes Asthma, Sleep Apnea Currently Using CPAP: Yes Cardiac: Yes Hypertension Neurological: Yes Headaches /Migraines Reproductive Disorders: No Sexually Transmitted Disease: No HIV/AIDS: No Genitourinary: No Prostate Problems Gastrointestinal: Yes Gastroesophageal Reflux, Hiatal Hernia Musculoskeletal: Yes (LEFT KNEE SEVERE OSTEOARTHRITIS) Degenerate Disk Disease, Arthritis Endocrine: Yes Hypothyroidsim HEENT: No Loss of Vision: Denies Hearing Impairment: Denies Cancer: No Psychosocial: No Integumentary: No Blood Disorders: No Adverse Reaction/Blood Tranf: No (N/A) Family Medical History Arthritis 19 FATHER 19 MOTHER G8 BROTHER G8 SISTER Cardiovascular disease 19 FATHER 19 MOTHER Dementia 19 FATHER Diabetes mellitus 19 FATHER G8 BROTHER Hypertension 19 FATHER 19 MOTHER CAD Over 55 Years Old, Diabetes, Hypertension Physical Exam Vital Signs Vital Signs - First Documented 11/24/22 09:45 Temp 36.7 Pulse 66 Resp 18 B/P (MAP) 194/97 (129) Pulse Ox 96 O2 Delivery Room Air Capillary Refill : Less Than 3 Seconds Height, Weight, BMI Height: 5'11.00" Weight: 320lbs. 0.0oz. 145.336984xh; 45.00 BMI Method:Stated General Appearance: No Apparent Distress, WD/WN, Obese HEENT: PERRL/EOMI Neck: Normal Inspection Respiratory: Lungs Clear, Normal Breath Sounds, No Accessory Muscle Use, No Respiratory Distress Cardiovascular: Regular Rate, Rhythm, Normal Peripheral Pulses Gastrointestinal: Normal Bowel Sounds, Non Tender, Soft Extremity: Normal Capillary Refill, Normal Inspection, Normal Range of Motion, Non Tender, No Calf Tenderness Neurologic/Psychiatric: Alert, Oriented x3, No Motor/Sensory Deficits, Normal Mood/Affect, Other (seems to be a little hesitant with answers, almost like he can't remember the answers - looks to his for confirmation) Skin: Normal Color, Warm/Dry Progress/Results/Core Measures Results/Orders Lab Results Laboratory Tests Test 11/24/22 09:55 Range/Units White Blood Count 8.0 4.3-11.0 10^3/uL Red Blood Count 3.76 L 4.30-5.52 10^6/uL Hemoglobin 11.9 L 13.3-17.7 g/dL Hematocrit 35 L 40-54 % Mean Corpuscular Volume 94 80-99 fL Mean Corpuscular Hemoglobin 32 25-34 pg Mean Corpuscular Hemoglobin Concent 34 32-36 g/dL Red Cell Distribution Width 14.3 10.0-14.5 % Platelet Count 285 130-400 10^3/uL Mean Platelet Volume 10.4 9.0-12.2 fL Immature Granulocyte % (Auto) 1 % Neutrophils (%) (Auto) 73 42-75 % Lymphocytes (%) (Auto) 15 12-44 % Monocytes (%) (Auto) 8 0-12 % Eosinophils (%) (Auto) 3 0-10 % Basophils (%) (Auto) 1 0-10 % Neutrophils # (Auto) 5.8 1.8-7.8 10^3/uL Lymphocytes # (Auto) 1.2 1.0-4.0 10^3/uL Monocytes # (Auto) 0.7 0.0-1.0 10^3/uL Eosinophils # (Auto) 0.2 0.0-0.3 10^3/uL Basophils # (Auto) 0.1 0.0-0.1 10^3/uL Immature Granulocyte # (Auto) 0.1 0.0-0.1 10^3/uL Prothrombin Time 13.8 12.2-14.7 SEC INR Comment 1.0 0.8-1.4 Activated Partial Thromboplast Time 37 H 24-35 SEC Sodium Level 140 135-145 MMOL/L Potassium Level 3.7 3.6-5.0 MMOL/L Chloride Level 103 98-107 MMOL/L Carbon Dioxide Level 25 21-32 MMOL/L Anion Gap 12 5-14 MMOL/L Blood Urea Nitrogen 22 H 7-18 MG/DL Creatinine 1.46 H 0.60-1.30 MG/DL Estimat Glomerular Filtration Rate 50 BUN/Creatinine Ratio 15 Glucose Level 97 70-105 MG/DL Calcium Level 9.2 8.5-10.1 MG/DL Corrected Calcium 9.0 8.5-10.1 MG/DL Magnesium Level 1.9 1.6-2.4 MG/DL Total Bilirubin 0.6 0.1-1.0 MG/DL Aspartate Amino Transf (AST/SGOT) 66 H 5-34 U/L Alanine Aminotransferase (ALT/SGPT) 47 0-55 U/L Alkaline Phosphatase 116 40-136 U/L Troponin I < 0.028 <0.028 NG/ML Total Protein 7.6 6.4-8.2 GM/DL Albumin 4.2 3.2-4.5 GM/DL My Orders Orders - MATTHEW NUR MD Cbc With Automated Diff (11/24/22 10:10) Magnesium (11/24/22 10:10) Chest 1 View, Ap/Pa Only (11/24/22 10:10) Ekg Tracing (11/24/22 10:10) Comprehensive Metabolic Panel (11/24/22 10:10) Protime With Inr (11/24/22 10:10) Partial Thromboplastin Time (11/24/22 10:10) O2 (11/24/22 10:10) Monitor-Rhythm Ecg Trace Only (11/24/22 10:10) Ed Iv/Invasive Line Start (11/24/22 10:10) Troponin I Thomas (11/24/22 10:10) Lidocaine 2% Viscous 15 Ml (Xylocaine Vi (11/24/22 10:15) Antacid Suspension (Antacid Suspension (11/24/22 10:15) Sucralfate Tablet (Sucralfate Tablet) (11/24/22 10:15) Medications Given in ED Current Medications Medications Dose Ordered Sig/Bre Route Start Time Stop Time Status Last Admin Dose Admin Al Hydrox/Mg Hydrox/Simethicone 30 ml ONCE ONCE PO 11/24/22 10:15 11/24/22 10:16 DC 11/24/22 10:20 30 ML Lidocaine HCl 5 ml ONCE ONCE PO 11/24/22 10:15 11/24/22 10:16 DC 11/24/22 10:20 15 ML Sucralfate 1 gm ONCE ONCE PO 11/24/22 10:15 11/24/22 10:16 DC 11/24/22 10:18 1 GM Vital Signs/I&O 11/24/22 09:45 Temp 36.7 Pulse 66 Resp 18 B/P (MAP) 194/97 (129) Pulse Ox 96 O2 Delivery Room Air Blood Pressure Mean: 129 Progress Progress Note : Time: 12:36 Progress Note Patient seen and evaluated by me. Evaluation today includes "cardiac work-up" to include EKG, single view chest x-ray, CBC, Chem-12, magnesium level, troponin, coags. Pertinent physical exam findings well-developed well-nourished obese male in no acute distress. He has stable vital signs. His lungs are clear, no wheezes, rhonchi or rales. Trace lower extremity edema. Abdomen is soft. No reproducible tenderness to the lower chest wall/epigastrium. Differential diagnosis based on history and physical exam, NSTEMI, gastroesophageal reflux Labs independently reviewed and interpreted by His CBC is normal with a hemoglobin 11.9 hematocrit 35 (minimally low), total white blood cell count of 8.0 with normal platelets. Chem-12 remarkable only for mildly elevated BUN and creatinine at 22 and 1.46. Normal magnesium, undetectable troponin. Coags normal except for a mildly elevated PTT at 37. EKG shows normal sinus rhythm with first-degree AV block, HI of 212. QRS is slightly prolonged at 121. No ectopy. No ST segment elevation or depression is noted. His chest x-ray shows mild cardiomegaly, radiology interpretation states mild increased central pulmonary vascular congestion. Patient is monitored throughout his stay here in the emergency department treated with a "GI cocktail", 30 mils of Maalox, 1 g of Carafate and 5 mils of viscous lidocaine. This completely alleviated his symptoms. I did review the medical record, the patient had cardiac stress echo and cath in 2017 which showed "40 to 50% blockage in the proximal LAD". Due to the length of time it has been since his stress and cath as well as ongoing risk factors I recommended to the patient and his that he follow-up with Dr. Mccollum for reevaluation/stress test. His troponin is negative at this point approximately 3 hours after the onset of symptoms. I believe this is more GI in nature as he had complete alleviation with the GI cocktail. This is not exertional chest pain nor does it radiate or cause any additional symptoms. The patient and his are comfortable with discharge to home. Return precautions provided in both verbal and written format. All questions are sought and answered. Patient is stable and improved at discharge Initial ECG Impression Date: Nov 24, 2022 Initial ECG Impression Time: 09:50 Initial ECG Rate: 65 Initial ECG Rhythm: Normal Sinus Initial ECG Intervals HI interval 212 QRS interval 121 QTc interval 441 Diagnostic Imaging Diagonstic Imaging: Xray Plain Films/CT/US/NM/MRI: chest Comments [facility] [place], [place] NAME: [facility] REC#: [id number] PT STATUS: REG ER : 1950 PHYSICIAN: MATTHEW NUR MD ADMIT DATE: 11/24/22/ER Signed Date of Exam:11/24/22 CHEST 1 VIEW, AP/PA ONLY HISTORY: Chest pain TECHNIQUE: Frontal view of the chest. COMPARISON: 02/11/2018 FINDINGS: Lung volumes are mildly low. There is mild cardiomegaly with central vascular congestion and interstitial opacities, most likely edema. No large effusion or pneumothorax is seen. IMPRESSION: 1. Cardiomegaly with interstitial opacities, likely edema. Dictated by: Dictated on workstation # [id number] Dict: 11/24/22 1137 Trans: 11/24/22 1149 CVB [id number] Interpreted by: SERGO ARZOLA MD Electronically signed by: SERGO ARZOLA MD 11/24/22 1149 Departure Impression Primary Impression: Atypical chest pain Disposition: HOME, SELF-CARE Condition: Stable Departure-Patient Inst. Decision time for Depature: 12:39 Referrals: [facility] [place] ([place]P/Family) Primary Care Physician ALMA MCCLOLUM MD Patient Instructions: Acid Reflux and GERD in Adults (DC), Chest Pain, Adult ED Add. Discharge Instructions: Continue your daily medications as prescribed. Increase your omeprazole to 40mg at night. A prescription has been sent to your pharmacy. Please call Dr Mccollum's office for a follow up appointment for re-evaluation of your chest pain. If you have any concerning change or worsening of symptoms, especially with nausea, sweating, change in location of the pain - please come back to the Emergency Department for re-evaluation. Copy Copies To 1: ALMA MCCOLLUM MD Copies To 2: DENISE FATIMA KATHRYN M MD Nov 24, 2022 10:12
[2022-11-24] MEDS ORDERED: ANTACID SUSPENSION 30 ML UDC PO ONE (10:15)
[2022-11-24] MEDS ORDERED: LIDOCAINE 2% VISCOUS 15 ML UDC PO ONE (10:15)
[2022-11-24] MEDS ORDERED: SUCRALFATE 1 GM TABLET PO ONE (10:15)
[2022-11-24 10:17] LABS: BASOPHILS # (AUTO) 0.1 10^3/uL (0.0-0.1); BASOPHILS % (AUTO) 1 % (0-10); EOSINOPHILS # (AUTO) 0.2 10^3/uL (0.0-0.3); EOSINOPHILS % (AUTO) 3 % (0-10); HEMATOCRIT 35 % (40-54); HEMOGLOBIN 11.9 g/dL (13.3-17.7); LYMPHOCYTES # (AUTO) 1.2 10^3/uL (1.0-4.0); LYMPHOCYTES % (AUTO) 15 % (12-44); MEAN CORPUSCULAR HEMOGLOBIN 32 pg (25-34); MEAN CORPUSCULAR HGB CONC 34 g/dL (32-36); MEAN CORPUSCULAR VOLUME 94 fL (80-99); MEAN PLATELET VOLUME 10.4 fL (9.0-12.2); MONOCYTES # (AUTO) 0.7 10^3/uL (0.0-1.0); MONOCYTES % (AUTO) 8 % (0-12); NEUTROPHILS # (AUTO) 5.8 10^3/uL (1.8-7.8); NEUTROPHILS % (AUTO) 73 % (42-75); PLATELET COUNT 285 10^3/uL (130-400)
[2022-11-24 10:22] LABS: PROTHROMBIN TIME PATIENT 13.8 SEC (12.2-14.7)
[2022-11-24 10:27] LABS: ALANINE AMINOTRANSFERASE 47 U/L (0-55); ALBUMIN 4.2 GM/DL (3.2-4.5); ALKALINE PHOSPHATASE 116 U/L (40-136); BILIRUBIN,TOTAL 0.6 MG/DL (0.1-1.0); BUN/CREATININE RATIO 15; CALCIUM 9.2 MG/DL (8.5-10.1); CARBON DIOXIDE 25 MMOL/L (21-32); CHLORIDE 103 MMOL/L (98-107); CREATININE SERUM 1.46 MG/DL (0.60-1.30); GFR ESTIMATED 50; GLUCOSE 97 MG/DL (70-105); MAGNESIUM 1.9 MG/DL (1.6-2.4); POTASSIUM 3.7 MMOL/L (3.6-5.0); SODIUM 140 MMOL/L (135-145); TOTAL PROTEIN 7.6 GM/DL (6.4-8.2)
--- NOTE | 2022-11-24 11:42 | Diagnostic Imaging Report ---
HISTORY: Chest pain TECHNIQUE: Frontal view of the chest. COMPARISON: 02/11/2018 FINDINGS: Lung volumes are mildly low. There is mild cardiomegaly with central vascular congestion and interstitial opacities, most likely edema. No large effusion or pneumothorax is seen. IMPRESSION: 1. Cardiomegaly with interstitial opacities, likely edema. Dictated by: Dictated on workstation # [id number]
[2022-11-24 12:49] VITALS: BP 120/92
== END 2022-11-24 12:55 | disposition home or self-care (01) ==
LOC: EDUNIT# 09:40 → ER 09:43
DX: R07.89 Other chest pain (principal); E66.9 Obesity, unspecified; G47.30 Sleep apnea, unspecified; Z99.89 Dependence on other enabling machines and devices; Z68.41 Body mass index [BMI] 40.0-44.9, adult; Z87.891 Personal history of nicotine dependence
CPT/HCPCS: 36415; 71045; 80053; 83735; 84484; 85025; 85610; 85730; 93005; 93041